=== PATIENT | male | born 1945 | race Caucasian/White ===

== ENCOUNTER 2024-11-11 14:02 | Emergency (ER) | payer OTHER, SELFPAY ==
--- NOTE | ~2024-11-11 | CT_ITS ---
CLINICAL HISTORY: floaters to L eye --- Additional Notes or Special Instructions: hx of left retinal occlusion CT angiography head and neck with contrast. 3D Postprocessing. Comparison: CT/SR - CT HEAD/BRAIN WO IV CON - 11/11/24 15:11 EDT Findings: Aortic arch and cervical great vessels are patent with no aneurysm, dissection, or occlusion. There is multifocal calcific plaque formation within major arteries. There is moderate calcific plaque formation at the origin of the right subclavian artery. Likely moderate associated stenosis. There is severe calcific plaque formation within the proximal right vertebral artery extending from its origin over 2.5 cm of its length. Probable occlusion of the origin of the right vertebral artery. Recanalization within the mid and distal aspects of the cervical portion of the right vertebral artery with relatively limited flow. There is calcification of the origin of the left vertebral artery with moderate to severe stenosis. The remainder of the left vertebral artery is unremarkable with appropriate flow. There is severe calcific plaque formation within the bilateral carotid bulbs. On the left, there is stenosis estimated at 20% by NASCET criteria. On the right, there is stenosis estimated at 50% by NASCET criteria. Intracranial arteries are patent. No aneurysm, dissection, hemodynamically significant stenoses, or occlusion. No abnormal intracranial enhancement. The visualized thyroid gland is unremarkable. No cervical mass or fluid collection. No consolidation or pleural effusion. No acute fracture. IMPRESSION: 1. Severe calcific plaque formation within the proximal right vertebral artery with occlusion at its origin. Recanalization with relatively limited flow within the mid and distal aspects of the cervical portion. 2. Probable stenosis of the origin of the left vertebral artery. 3. Stenosis of the origin of the right ICA estimated at 50% by NASCET criteria. Stenosis of the origin of the left ICA estimated at 20% by NASCET criteria. 4. 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 5. Patent CTA brain. This document has been electronically signed by: Izzy Tillman MD on 11/11/2024 18:51:49
--- NOTE | ~2024-11-11 | CT_ITS ---
CLINICAL HISTORY: L eye vision loss CT head without contrast Comparison: None Findings: No intra-axial mass, midline shift, hydrocephalus, or acute hemorrhage. Involutional change brain parenchyma, compatible with age. Small chronic appearing lacunar infarct within the right basal ganglia. Trace fluid within the right maxillary sinus. Mild mucosal thickening within the paranasal sinuses. The orbits are unremarkable. There is no acute fracture. IMPRESSION: 1. No acute intracranial findings. This document has been electronically signed by: Izzy Tillman MD on 11/11/2024 16:01:07
[2024-11-11 14:24] VITALS: BP 138/81; PULSE 90; RESP 16; TEMP 36.9; O2SAT 98; BMI 29.3
--- NOTE | 2024-11-11 14:25 | ED.EYEPROB ---
HPI - Eye Problem General Chief complaint: Eye Problems Stated complaint: problem with L eye Time Seen by Provider: 11/11/24 15:47 Source: patient Mode of arrival: ambulatory Limitations: no limitations History of Present Illness ED Provider: CHARISSE HART PA-C HPI Narrative: 78-year-old male with pmhx significant for atrial fibrillation on Eliquis and clopidogrel presents to the ED today with worsening vision in his left eye x1 week. Reports history of RVO 2 years ago with subsequent chronic upper visual field loss described as purple area . Over the last week he has developed floaters to inferior visual field only visible with certain eye movements. Denies any pain to left eye. Denies seeing a curtain drop. Denies contact use but does wear glasses. He is nearsighted. Denies headache, dizziness, blurred vision or double vision, chest pain, palpitations. Denies trauma/injury to left eye. denies fb sensation. Related Data Allergies Allergy/AdvReac Type Severity Reaction Status Date / Time No Known Allergies Allergy Verified 11/11/24 14:26 [No Known Allergies*] Review of Systems Review of Systems: Yes all other systems are reviewed and are negative [facility] Past Medical History Attestation statement: The following information was validated with the patient. Source: old records reviewed and nursing notes reviewed Social History Social History Smoked in Last 30 Days: No Use of substances other than those prescribed or required for medical reasons: No Advance Directives: No Advance Directives Information Provided: Yes Do you have a plan to hurt others: No Plan Physical Exam Vital Signs: Vital Signs: Last Vital Signs Temp 97.8 F 11/11/24 20:08 Pulse 73 11/11/24 20:08 Resp 16 11/11/24 20:08 BP 120/63 11/11/24 20:08 Pulse Ox 97 11/11/24 20:08 O2 Del Method Room Air 11/11/24 20:08 BMI result Body Mass Index 29.3 Stable vitals General: Well appearing, in no acute distress. Skin: Warm, dry, intact. No rashes or lesions. Head: Normocephalic, atraumatic. no palpable temporal aa or scalp tenderness. EENT: Hearing is intact b/l. Conjunctiva clear. No periorbital swelling. No enophthalmous or exopthalmous. EOMs intact without pain or entrapment. PERRLA. No photophobia. No obvious foreign body or abrasion. No conjunctival injection or chemosis. Visual acuity OS 20/40 OD 20/30. IOP OD 14, IOP OS 16. noted loss to peripheral vision of left eye. difficulty tracking my finger peripheral w/ left eye. Bedside US of left eye - no retinal detachment. No vitreous hemorrhage. Cardiac: Chest wall symmetric. Irregularly irregular Lungs: Normal respiratory effort without accessory muscle use. CTA bilaterally Ext: Upper and lower extremities atraumatic, without tenderness, deformity, swelling or erythema Neuro: AOx3. Normal speech. NIH 0. Normal finger to nose, heel to ramirez. Strength 5/5 intact throughout. Sensation intact to light touch. NV intact distally. Ambulating with steady gait. Psych: Appropriate mood and affect. Responds appropriately to questions. Course Course Course Narrative: This is an RME performed by Ofelia Frederick PRACTICE MANAGER: Additional HPI, ROS, PE not included below will be deferred to primary provider. Patient is a 78-year-old male who presents emergency department for evaluation. He reports approximately 2 years ago he was diagnosed with a blood clot in the left eye that was thought to be secondary to a stroke, is told that this would dissolve on its some. He has chronically had some slight vision changes with a purple obscuring discoloration to his upper field of vision. Over the past 3-4 days he has noticed that his symptoms are worsening and now feels as though the upper half of his field of vision on the left side is obscured. Denies any recent trauma or injury, headache, pressure to the eye, numbness or tingling to the face, facial drooping, confusion. NIH score 0. Plan: Serum labs, EKG, CT head Reevaluation(s) Reevaluation #1: CBC without leukocytosis or left shift. Normocytic anemia, H and H 12.2/36. No priors to compare to. Chemistry without acute electrolyte abnormality requiring intervention. BUN mildly elevated at 18 with normal creatinine. Liver function at baseline. inflammatory markers wnl. Troponin WNL at 9.6. Given onset of symptoms and timing to ED, no need to repeat for delta as ACS is unlikely. EKG showing atrial fibrillation rate control fit 80 beats per minute, QT 364, QTC 424. No acute ischemic changes or ST elevations. CT head/brain without intracranial bleed or mass. Incidental finding of trace fluid within the right maxillary sinus with mild mucosal thickening of the paranasal sinuses. He does not endorse any tenderness to percussion over right maxillary sinus. Unlikely sinusitis. 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 > discussed findings with vascular surgery (Dr. Jefferson). From vascular standpoint, patient can follow-up outpatient regarding moderate stenosis of right subclavian artery. No other vascular intervention warranted at this time. > discussed case with hospitalist (Dr. Win). suspects this is more peripheral in etiology. No acute onset. Recommending discussion with Ophthalmology. > discussed case with mri specialist (Dr. Fu). Suspects this is progression of chronic retinal vessel occlusion. no emergent intervention warranted at this time. He recommends patient follow-up in his office tomorrow morning. I feel this is reasonable. > discussed all workup results with patient. He was well-appearing. Exam continues to be nonfocal. No new concern since arriving in the ED. he states that he will contact Dr. Fu's office tomorrow morning. Referral provided. Patient has remained stable throughout ED visit today. Discussed worrisome signs and symptoms and when to return to the ED. All questions answered at this time. Patient is agreeable with disposition and stable for discharge. Medications Administered Discontinued Medications Generic Name Dose Route Start Last Admin Trade Name Freq PRN Reason Stop Dose Admin Iohexol 100 ml 11/11/24 17:40 11/11/24 17:41 Iohexol 350 Mg/Ml 100 Ml Infus..Btl IV 11/11/24 17:41 70 ml ONCE ONE Administration Medical Decision Making Medical Decision Making MDM Narrative: 78-year-old male with pmhx significant for atrial fibrillation on Eliquis and clopidogrel presents to the ED today with worsening vision in his left eye x1 week. vital signs stable. normotensive, afebrile. He was well-appearing and in no acute distress. On exam, no focal neuro deficits. No scalp tenderness or palpable temporal artery. No periorbital swelling. No enophthalmous or exopthalmous. EOMs intact without pain or entrapment. PERRLA. No photophobia. No obvious foreign body or abrasion. No conjunctival injection or chemosis. Visual acuity OS 20/40 OD 20/30. IOP OD 14, IOP OS 16. noted loss to peripheral vision of left eye. difficulty tracking my finger peripheral w/ left eye. Bedside ultrasound of left eye - no retinal detachment. No vitreous hemorrhage. Differential diagnosis includes CVA, TIA, brain mass, retinal detachment, temporal arteritis. Unlikely corneal abrasion, corneal foreign body, viral vs bacterial conjunctivitis, allergic conjunctivitis. Unlikely preseptal or orbital cellulitis, acute angle closure glaucoma, iritis, keratitis, scleritis, uveitis, herpes ophthalmicus. Presentation not consistent with acute intracranial bleed including SAH. Presentation not consistent with acute [employer] infection including meningitis or brain abscess. Temporal arteritis unlikely. Screening labs, ekg, CT head ordered from triage - plan to review. Plan for bedside ultrasound, CTA head/neck. Differential Diagnosis Differential Diagnoses: The differential diagnosis associated with the presentation includes as above. Admission/Observation discussed admission w/ hospitalist dr. win - suspects peripheral cause of visual disturbance. CVA unlikely. recommending reaching out to ophthalmology Consult Healthcare Provider Management of the patient was discussed with: Hospitalist (dr. win) [employer] Model - dr. fu vascular - dr. jefferson Lab Data MDM Lab Attestation statement: I reviewed the patient's lab results. as above. 11/11/24 15:10 11/11/24 15:10 Labs: Lab Results 11/11/24 Range/Units 15:10 WBC 7.2 (4.8-10.8) X10*3/uL RBC 3.82 L (4.60-5.80) X10*6/uL Hgb 12.2 L (14.0-18.0) g/dl Hct 36.0 L (42.0-52.0) % MCV 94.2 (80.0-98.0) fL MCH 31.9 (27.0-33.0) pg MCHC 33.9 (31.0-36.0) g/dl RDW 13.4 (11.0-16.0) % Plt Count 201 (160-400) X10*3/uL MPV 9.8 (9.4-12.4) fL Immature Gran % (Auto) 0.3 (0.0-0.4) % Neut % (Auto) 59.6 (45-73) % Lymph % (Auto) 24.4 (20-40) % [place] % (Auto) 8.7 (2-11) % Eos % (Auto) 6.4 H (0-4) % Baso % (Auto) 0.6 (0-2) % Lymph # (Auto) 1.8 (1.2-4.9) X10*3/uL [place] # (Auto) 0.6 (0.1-1.2) X10*3/uL Eos # (Auto) 0.5 H (0.0-0.4) X10*3/uL Baso # (Auto) 0.0 (0.0-0.2) X10*3/uL Abs Immat Gran (auto) 0.02 (0.00-0.03) X10*3/uL Absolute Neuts (auto) 4.3 (2.0-8.3) x10*3/uL Absolute Nucleated RBC 0.000 (0.0-0.012) X10*3/uL Nucleated RBC % (auto) 0.0 (0.0-0.2) /100WBC ESR 9 (0-15) MM/HR PT 15.4 H (10.9-12.4) SEC INR 1.3 H (0.9-1.1) Sodium 142 (135-145) mmol/L Potassium 4.1 (3.3-5.1) mmol/L Chloride 110 H (96-108) mmol/L Carbon Dioxide 23 (22-29) mmol/L Anion Gap 13 (12-20) BUN 18 H (9-16) mg/dL Creatinine 1.09 (0.5-1.4) mg/dL Estim Creat Clear Calc 64.8 Estimated GFR > 60 Random Glucose 105 (60-115) mg/dL Calcium 8.8 (8.4-10.2) mg/dL Total Bilirubin 0.5 (0.0-1.0) mg/dL AST 25 (5-37) U/L ALT 28 (0-40) U/L Alkaline Phosphatase 77 (39-117) U/L Troponin I High Sens 9.6 (<3.5-35.0) ng/L C-Reactive Protein 0.10 (< or = 0.50) mg/dL Total Protein 6.7 (6.5-8.0) g/dL Albumin 3.8 (3.5-5.0) g/dL Independent Interpretation I performed an independent interpretation of an: EKG and CT Scan Interpretation: ct head/brain without bleed/ mass ekg showing afib rate controlled at 80 bpm Radiology Impression Discussion of test interpretation with radiology: I have reviewed the radiologist's reading. Radiologist Impression: Procedure(s): CT angio head neck Accession Number(s): [id number] cc: Aaron Solis MD; Charisse Hart~ Report Number: [id number]: Total DLP = 782.00 mGy-cm ADDENDUMThis document has been electronically signed by: Izzy Tillman MD on 11/11/2024 18:51:49 ADDENDUM: This report was discussed with Charisse Hart MD on Nov 11, 2024 19:06:00 EDT. This document has been electronically signed by: Woody Collier on 11/11/2024 19:06:33 Addendum Dictated By: Izzy Tillman MD Addendum Signed By: <Electronically signed by Izzy Tillman MD in [place]> 11/11/241907 Addendum Cosigned By: DD/ TD/TT: 11/11/24 CLINICAL HISTORY: floaters to L eye --- Additional Notes or Special Instructions: hx of left retinal occlusion CT angiography head and neck with contrast. 3D Postprocessing. Comparison: CT/SR - CT HEAD/BRAIN WO IV CON - 11/11/24 15:11 EDT Findings: Aortic arch and cervical great vessels are patent with no aneurysm, dissection, or occlusion. There is multifocal calcific plaque formation within major arteries. There is moderate calcific plaque formation at the origin of the right subclavian artery. Likely moderate associated stenosis. There is severe calcific plaque formation within the proximal right vertebral artery extending from its origin over 2.5 cm of its length. Probable occlusion of the origin of the right vertebral artery. Recanalization within the mid and distal aspects of the cervical portion of the right vertebral artery with relatively limited flow. There is calcification of the origin of the left vertebral artery with moderate to severe stenosis. The remainder of the left vertebral artery is unremarkable with appropriate flow. There is severe calcific plaque formation within the bilateral carotid bulbs. On the left, there is stenosis estimated at 20% by NASCET criteria. On the right, there is stenosis estimated at 50% by NASCET criteria. Intracranial arteries are patent. No aneurysm, dissection, hemodynamically significant stenoses, or occlusion. No abnormal intracranial enhancement. The visualized thyroid gland is unremarkable. No cervical mass or fluid collection. No consolidation or pleural effusion. No acute fracture. IMPRESSION: 1. Severe calcific plaque formation within the proximal right vertebral artery with occlusion at its origin. Recanalization with relatively limited flow within the mid and distal aspects of the cervical portion. 2. Probable stenosis of the origin of the left vertebral artery. 3. Stenosis of the origin of the right ICA estimated at 50% by NASCET criteria. Stenosis of the origin of the left ICA estimated at 20% by NASCET criteria. 4. 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 5. Patent CTA brain. This document has been electronically signed by: Izzy Tillman MD on 11/11/2024 18:51:49 Procedure(s): CT head/brain wo IV con Accession Number(s): [id number] cc: Kathleen Frederick CNP; Aaron Solis MD~ Report Number: [id number]: Total DLP = 765.00 mGy-cm CLINICAL HISTORY: L eye vision loss CT head without contrast Comparison: None Findings: No intra-axial mass, midline shift, hydrocephalus, or acute hemorrhage. Involutional change brain parenchyma, compatible with age. Small chronic appearing lacunar infarct within the right basal ganglia. Trace fluid within the right maxillary sinus. Mild mucosal thickening within the paranasal sinuses. The orbits are unremarkable. There is no acute fracture. IMPRESSION: 1. No acute intracranial findings. External Record Review External record reviewed: Inpatient record Chronic Conditions Patient?s care impacted by: Other (afib) Social Determinants Patient?s care significantly limited by Social Determinants of Health including: Other Social Determinant of Health Critical Care Time Critical Care Time Critical Care Time: No Discharge Plan Discharge Clinical Impression: Floaters in visual field Patient Disposition: Home, Self-Care Instructions: Visual Floaters (ED) Additional Instructions: Your blood work today is reassuring. The CT scan of your head shows patent vessels. There is no bleed or mass. The CT scan of your neck shows: 1. Severe calcific plaque formation within the proximal right vertebral artery with occlusion at its origin. Recanalization with relatively limited flow within the mid and distal aspects of the cervical portion. 2. Probable stenosis of the origin of the left vertebral artery. 3. Stenosis of the origin of the right ICA estimated at 50% by NASCET criteria. Stenosis of the origin of the left ICA estimated at 20% by NASCET criteria. 4. 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 You need to follow up with vascular surgery outpatient regarding these findings. You have been provided with a referral. Call them to establish care, they will not call you. Continue your home medications as prescribed. Regarding your visual floaters, you need to follow up with mri specialist Dr. Fu tomorrow for further evaluation. You have been provided with his number. Call his office tomorrow morning. He is expecting your call. Return with any new or worsening symptoms. In the case of an emergency call 911. 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
--- NOTE | 2024-11-11 14:41 | ECG_ITS ---
Test Reason : check for arrhythmia Blood Pressure : */* mmHG Vent. Rate : 80 BPM Atrial Rate : * BPM P-R Int : * ms QRS Dur : 78 ms QT Int : 368 ms P-R-T Axes : * 67 70 degrees QTcB Int : 424 ms Atrial fibrillation Abnormal ECG When compared with ECG of 05-Dec-2017 10:59, Atrial fibrillation has replaced Sinus rhythm ST no longer elevated in Lateral leads Referred By: Kathleen Frederick Electronically Signed By: ANALY PINK
--- OUTSIDE RECORDS SUMMARY | 2024-11-11 14:57 | XMS_ITS | Encounter Summary ---
Author Name [facility] [place] [facility] [place] Address [address] [place] [address] Care Team Providers Care Copy Director Name Role Phone AARON AWLDEN Primary Care Provider Unavailabl e Insurance Providers: [...] PART B Apr 24, 2013 PART B [phone] [id number] KLE[place] DYE RY PATIENT MEDICARE (WNR) MEDICARE () PART B Apr 24, 2013 PART B [id number] [facility] [phone] [id number] KLE[place]YE R[place] PATIENT MEDICARE (WNR) MEDICARE () PART B Apr 24, 2013 PART B [id number] KLE[place] R[place] PATIENT MEDICARE (WNR) MEDICARE () PART A November 23, 2011 PART A [id number] [place] R[place] PATIENT MEDICARE (WNR) MEDICARE () PART A November 23, 2011 PART A [id number] KLE[place] DYE RY PATIENT MEDICARE (WNR) MEDICARE () PART A November 23, 2011 PART A [id number] KLEBER DYE PATIENT [employer] [place] [employer] PLAN G PLAN G Apr 24, 2013 PLAN G [phone] [id number] KLEBER DYE PATIENT [employer] [place] [employer] PLAN G PLANG Apr 24, 2013 PLANG [id number] KLEBER DYE PATIENT [employer] [place] [employer] PLAN G Apr 24, 2013 PLANG [id number] KLEBER DYE PATIENT Selected Encounter This section includes the information on record at [place] for the Encounter. Date/Time Encounter Type Encounter Description Reason Provider Source Mar 13, 2024 10:30 AM PRINCESS MDLTY 1+ULTRASOUND EA 15 OCCUPATIONAL THERAPY ICD-10-CM M77.11 Lateral epicondylitis , right elbow MACHON,PAM E IHE Encounter Template Text not used by VA Assessments - Encounter Diagnoses This section includes the primary and secondary diagnoses documented for the Encounter. Date/Time Primary/Secondary Diagnosis Diagnosis Name Provider Source Apr 03, 2024 06:52 AM PRIMARY Lateral epicondylitis, right elbow MACHON,PAM E [place] [facility] [place] [facility] Plan of Treatment: Future Appointments (+ 6 months) and Future Tests (+/- 45 days) The Plan of Treatment section includes future care activities for the patient from all [place] treatmentfacilities. This section includes future appointments and future orders which are active, pending or scheduled. Future Appointments This section includes appointments that were scheduled to occur 6 months from the date of the Encounter, up to a maximum of 20 appointments. The data comes from all [place] treatment facilities. Appointment Date/Time Appointment Type Appointme nt Facility Name Mar 14, 2024 02:30 PM AMBULATORY - [facility]AB MEDICIN E [facility] [place] [facility] Mar 16, 2024 10:30 AM AMBULATORY - MEDICINE IN [facility] [place] [facility] Mar 20, 2024 09:30 AM AMBULATORY - MEDICINE IN [facility] [place] [facility] Mar 23, 2024 10:30 AM AMBULATORY - MEDICINE IN [facility] [place] [facility] Mar 29, 2024 11:30 AM AMBULATORY - MEDICINE IN [facility] [place] [facility] Mar 30, 2024 09:00 AM AMBULATORY - MEDICINE [facility] [place] [facility] Apr 03, 2024 11:30 AM AMBULATORY - MEDICINE [facility] [place] [facility] Apr 03, 2024 12:15 PM AMBULATORY - MEDICINE [facility] [place] [facility] Apr 04, 2024 03:00 PM AMBULATORY - MEDICINE [facility] [place] [facility] Apr 06, 2024 10:30 AM AMBULATORY - REHAB MEDICIN E [facility] [place] [facility] Apr 11, 2024 09:30 AM AMBULATORY - MEDICINE [facility] [place] [facility] Apr 16, 2024 03:00 PM AMBULATORY - REHAB MEDICIN E [facility] [place] [facility] Apr 23, 2024 10:00 AM AMBULATORY - MEDICINE [facility] [place] [facility] Apr 24, 2024 10:00 AM AMBULATORY - REHAB MEDICIN E [facility] [place] [facility] Apr 27, 2024 10:15 AM AMBULATORY - MEDICINE [facility] [place] [facility] May 01, 2024 10:00 AM AMBULATORY - REHAB MEDICIN E [facility] [place] [facility] May 16, 2024 10:00 AM AMBULATORY - REHAB MEDICIN E [facility] [place] [facility] May 16, 2024 11:00 AM AMBULATORY - REHAB MEDICIN E [facility] [place] [facility] May 21, 2024 03:00 PM AMBULATORY - REHAB MEDICIN E [facility] [place] [facility] May 29, 2024 10:30 AM AMBULATORY - REHAB MEDICIN E [facility] [place] [facility] Social History: Smoking Status (Most current) and Tobacco Use (All prior to encounter date) This section includes the most current, and the historical, smoking and tobacco- related health factors from the VA facility where the Encounter took place. Current Smoking Status This section includes the most current smoking, or tobacco-related health factor, from the VA facility where the Encounter took place. Date/Time Current Smoking Status Ricardo bryson Apr 13, 2023 11:00 AM VA-TOBACCO FORMER USER [facility] [place] [facility] Tobacco Use History This section includes a history of the smoking, or tobacco-related health factors, that were collected on or before the date of the Encounter. The data comes from the [place] facility where the Encounter took place. Date/Time Smoking Status/Tobac co Use Comment Facility Apr 13, 2023 11:00 AM VA-TOBACCO QUIT 5 TO < 15 YRS IN [facility] [place] [facility] Apr 14, 2022 01:30 PM VA-TOBACCO FORMER USER [facility] [place] [facility] Apr 14, 2022 01:30 PM VA-TOBACCO QUIT 5 TO < 15 YRS [facility] [place] [facility] Apr 10, 2021 10:00 AM VA-TOBACCO FORMER USER [place] [facility] [place] [facility] Apr 10, 2021 10:00 AM VA-TOBACCO QUIT 5 TO < 15 YRS IN [facility] [place] [facility] Apr 02, 2020 10:30 AM VA-TOBACCO FORMER USER IN [facility] [place] [facility] Apr 02, 2020 10:30 AM VA-TOBACCO QUIT 5 TO < 15 YRS [place] [facility] [place] [facility] Sep 29, 2018 08:52 AM VA-TOBACCO FORMER USER IN [facility] [place] [facility] Sep 29, 2018 08:52 AM VA-TOBACCO QUIT 15 YRS OR MORE [place] [facility] [place] [facility] December 21, 2017 12:27 PM QUIT TOBACCO USE 1-7 YEARS AGO 5 or 6 years ago [place] [facility] [place] [facility] May 19, 2017 10:21 AM QUIT TOBACCO USE 1-7 YEARS AGO [facility] [place] [facility] Aug 19, 2016 09:56 AM QUIT TOBACCO USE 1-7 YEARS AGO [facility] [place] [facility] Feb 12, 2016 11:34 AM QUIT TOBACCO USE 1-7 YEARS AGO [facility] [place] [facility] Aug 08, 2015 03:04 PM QUIT TOBACCO USE 1-7 YEARS AGO [facility] [place] [facility] Aug 08, 2015 03:04 PM QUIT TOBACCO USE IN PAST YEAR pt states he stooped smmoking in the past yr. [place] [facility] [place] [facility] Advance Directives: All historical and current Section Date Range: From patient's date of to the date document was created. This section includes ALL of a patient's completed or amended [place] Advance and Rescinded Directives. The entries below indicate that a directive exists for the patient, but an actual copy is not included with this document. The data comes from all [place] facilities. Date Advance Directives Provider Source Jun 20, 2012 ADVANCE DIRECTIVE DISCUSSION MONIKA IZAGUIRRE [facility] Radiology Reports: +/- 30 days of the [...] treatment facilities. Date/Time Radiology Report Provider Source Mar 09, 2024 09:52 AM SPINE CERVICAL, 4 OR 5 VIEWS: DYESANCHO [id number] M Ex Date: MAR 09, 2024@09:52 Req Phys: BRYANNA MOORE Loc: CWM/NO/SICK CALL PA (Req'g Loc Img Loc: [facility] 1 Service: Unknown IN [facility] [place] [address] (Case [id number] COMPLETE) SPINE CERVICAL, 4 OR 5 VIEWS (RAD Detailed) CPT:87865 Reason for Study: pain with radiating features to the left shoulder Clinical History: Report Status: Verified Date Reported: MAR 09, 2024 Date Verified: MAR 09, 2024 Fur Tanner E-Sig:/ES/MIRTA NAVAS JR Report: Study: AP, lateral and left and right oblique views of the cervical spine. Comparison: Cervical spine radiographs from May 16, 2018. Findings: There is intervertebral disc space narrowing, [...] in the cervical spine, as described above. Primary Diagnostic Code: No immediate attention required Primary Interpreting Staff: MIRTA NAVAS JR, Radiologist (Fur Tanner) /MIRTA CASIANO JR [facility] Encounter Notes: All associated encounter notes This section contains the clinical notes associated to the Encounter. Date/Time Encounter Note(s) Provider Source Mar 13, 2024 10:58 AM OCCUPATIONAL THERAPY DISCHARGE NOTE: LOCAL TITLE: OCCUPATIONAL THERAPY DISCHARGE NOTE STANDARD TITLE: OCCUPATIONAL THERAPY DISCHARGE NOTE DATE OF NOTE: MAR 13, 2024@10:58 ENTRY DATE: MAR 13, 2024@10:58:25 AUTHOR: PAM JEFFERSON COSIGNER: AARON WALDEN URGENCY: STATUS: COMPLETED Initial Evaluation date: Feb Progress Note Date: Treatment #: 2 Treatment time: 28 minutes Diagnosis: Lateral Epicondylitis, right Elbow(ICD-10-CM M77.11) Provider: Irma OT Treatment Precautions: anticoag Patient identified by full name and date of SUBJECTIVE: Pt reports his L shoulder is quite painful still. Pt reports that elbow is not a problem. He wears the counterforce brace while driving. Pain Level: 0/10 OBJECTIVE: THERAPEUTIC EXERCISE: MINUTES: MANUAL THERAPY: mobilization/FDM over common extensor tendon/mobile wad MINUTES: 16 THERAPEUTIC DYNAMIC ACTIVITIES: MINUTES: NEUROMUSCULAR EDUCATION: MINUTES: OTHER: MINUTES: MODALITIES: *US 1.4 w/cm2 100% 3 MHz, sound head over common extensor tendon/mobile wad MINUTES: 8 [] Contraindication screen completed prior to modality [] Skin intact pre/post SELF CARE/EDUCATION: MINUTES: Patient education was provided for all aspects of care during this clinical encounter. ASSESSMENT: pt tolerated tx well this date. some tightness and ttp noted throughout extensor musculature, though pt does not experience much pain at all functionally. he is wearing the counterforce brace while driving and during exacerbating activities. at this time he feels very good about his elbow and would like to return for his L shoulder pain. PLAN: d/c from direct OT services w/ counterforce brace wear and stretches. will request OT referral for L shoulder pain from PCP. pt is in agreement w/ this POC. LTG's: 1. pain <1-2/10 at all times-MET 2. pt will report 50% improvement since initiating tx-MET STG's: 1. compliant w/ HEP and counterforce brace wear-MET 2. trial modalities (US, ionto) for pain/symptom management-MET 3. patient will report decreased pain in R elbow to <5/10 at worst-MET The practitioner's co-signature on this note signifies agreement with plan of care and clinical diagnosis code. /glenis/ Pam Jefferson MS OTR/Malini, CHT Occupational Therapist Signed: 03/13/2024 11:02 /glenis/ Aaron Walden MD Staff Physician Cosigned: 03/13/2024 11:12 PAM JEFFERSON [facility]
--- OUTSIDE RECORDS SUMMARY | 2024-11-11 14:57 | XMS_ITS | Encounter Summary ---
Author Name [facility] [place] [facility] [place] [facility] [place] Address [address] [place] [address] Care Team Providers Care Scallop Shucker Name Role Phone AARON WALDEN Primary Care [...] PART B Apr 24, 2013 PART B [id number] [place] PATIENT MEDICARE (WNR) MEDICARE () PART B Apr 24, 2013 PART B [id number] [facility]8 KLE[place] DYE RY PATIENT MEDICARE (WNR) MEDICARE (M) PART B Apr 24, 2013 PART B [id number] [id number] K[place] DYE R[place] PATIENT MEDICARE (WNR) MEDICARE () PART A November 23, 2011 PART A [id number] [place] R[place] PATIENT MEDICARE (WNR) MEDICARE () PART A November 23, 2011 PART A [id number] K[place] DYE RY PATIENT MEDICARE (WNR) MEDICARE () PART A November 23, 2011 PART A [id number] KLEBER DYE PATIENT [employer] [place] [employer] PLAN G PLAN G Apr 24, 2013 PLAN G [phone] [id number] KLEBER DYE PATIENT [employer] [place] [employer] PLAN G PLANG Apr 24, 2013 PLANG [id number] KLEBER DYE PATIENT [employer] [place] [employer] PLAN G Apr 24, 2013 PLANG [id number] KLEBER DYE PATIENT Selected Encounter This section includes the information on record at [place] for the Encounter. Date/Time Encounter Type Encounter Description Reason Pro vider Source Sep 29, 2024 03:40 AM Outpatient Encounter ADMIN PAT ACTIVTIES (MASNONCT) IHE Encounter Template Text not used by [place] Plan of Treatment: Future Appointments (+ 6 months) and Future Tests (+/- 45 days) The Plan of Treatment section includes future care activities for the patient from all [place] treatmentfacilities. This section includes future appointments and [...] 04, 2024 03:00 PM AMBULATORY - MEDICINE [facility] [place] [facility] Oct 16, 2024 10:00 AM AMBULATORY MEDICINE [facility] [place] [facility] December 12, 2024 11:30 AM AMBULATORY MEDICINE [facility] [place] [facility] Dec 25, 2024 01:00 PM AMBULATORY MEDICINE [facility] [place] [facility] Jan 01, 2025 09:00 AM [facility] Lab Results: +/- 30 days of the encounter This section includes the Chemistry and Hematology Lab Results on record with [place] for the patient. Radiology Reports and Pathology Reports are provided separately, in subsequent sections. Lab Results This section contains the Chemistry/Hematology Results that were resulted 30 days before or 30 daysafter the date of the Encounter. Date/Time Source Result Type Result - Unit Interpretation Reference Range Specimen Type Comment Oct 16, 2024 10:36 AM [facility] URINALYSIS CLEAN CATCH URINE Specimen Type: URINE Comment: If Glucose = >500 and Ketones are positive, please alert the Physician. Ordering Provider: AARON WALDEN Report Released Date/Time: Oct 16, 2024 10:21 AM Reporting Lab: [facility] [address] [facility] [address] Performing Lab: [facility] [address] [facility] [address] UA COLOR Yellow Yellow UA APPEARANCE Clear Clear UA GLUCOSE Normal mg/dL Negative UA KETONES NEGATIVE mg/dL Negative UA BLOOD NEGATIVE mg/dL Negative UA PROTEIN NEGATIVE mg/dL Negative UA NITRITE NEGATIVE mg/dL Negative UA BILIRUBIN NEGATIVE mg/dL Negative UA SPECIFIC GRAVITY 1.019 1.016-1.022 UA pH 6.0 5.0-9.0 UA UROBILINOGEN Normal mg/dL <2.0 UA LEUKOCYTE NEGATIVE Negative Oct 04, 2024 12:21 PM [facility] LIVER FUNCTION SERUM Specimen Type: SERUM No comment entered. Ordering Provider: AARON WALDEN Report Released Date/Time: Oct 04, 2024 12:06 PM Reporting Lab: [facility] [address] [facility] [address] Performing Lab: [facility] [address] [facility] [address] PROTEIN,TOTAL 6.4 g/dL 6.0-8.3 ALBUMIN 3.5 g/dL 3.5-5.0 ALKALINE PHOSPHATASE 66 U/L 40-150 AST 13 U/L 5-34 ALT 15 U/L BILIRUBIN, TOTAL 0.7 mg/dL 0.2-1.2 Oct 04, 2024 12:21 PM [facility] TSH SERUM Specimen Type: SERUM No comment entered. Ordering Provider: AARON WALDEN Report Released Date/Time: Oct 04, 2024 12:06 PM Reporting Lab: [facility] [address] [facility] [address] Performing Lab: [facility] [address] [facility] [address] TSH 2.11 u[IU]/mL 0.35-5.00 Oct 04, 2024 12:21 PM [facility] BASIC METABOLIC PANEL (fasting) SERUM Specime n Type: SERUM No comment entered. Ordering Provider: AARON WALDEN Report Released Date/Time: Oct 04, 2024 12:06 PM Reporting Lab: [facility] [address] [facility] [address] Performing Lab: [facility] [address] [facility] [address] UREA NITROGEN 17 mg/dL 7-25 GLUCOSE 101 mg/dL H 65-100 SODIUM 139 mmol/L 135-145 POTASSIUM 4.5 mmol/L 3.5-5.0 CHLORIDE 108 mmol/L 100-110 CO2 23 meq/L 20-30 CALCIUM 8.8 mg/dL 8.5-10.2 CREATININE, Serum 1.11 mg/dL 0.50-1.40 eGFR(CKD-EPI 2020) 68 mL/min >60 Oct 04, 2024 12:21 PM [facility] LIPID PANEL FASTING SERUM Specimen Type: SERU M No comment entered. Ordering Provider: AARON WALDEN Report Released Date/Time: Oct 04, 2024 12:06 PM Reporting Lab: [facility] [address] [facility] [address] Performing Lab: [address] [address] CHOLESTEROL 88 mg/dL TRIGLYCERIDE 84 mg/dL 0-150 LDL calculated 41 mg/dL 0-129 CHOL/HDL 2.9 HDL CHOLESTEROL 30 mg/dL L 40-60 Oct 04, 2024 12:21 PM [facility] URIC ACID SERUM Specimen Type: SERUM No comment entered. Ordering Provider: AARON WALDEN Report Released Date/Time: Oct 04, 2024 12:06 PM Reporting Lab: [facility] [address] [facility] [address] Performing Lab: [address] [address] URIC ACID 3.1 mg/dL L 3.5-7.2 Oct 04, 2024 12:21 PM [facility] MICROSCOPIC AUTOMATED, URINE URINE Specimen T ype: URINE Comment: If Glucose = >500 and Ketones are positive, please alert the Physician. Ordering Provider: AARON WALDEN Report Released Date/Time: Oct 04, 2024 12:06 PM Reporting Lab: [facility] [address] [facility] [address] Performing Lab: [facility] [address] [facility] [address] UA WBC 0-5 /[HPF] 0-5 UA MUCUS FEW /[LPF] Trace UA HYALINE CASTS 5-9 /[LPF] H 0-2 UA RBC 6-10 /[HPF] H 0-3 Oct 04, 2024 12:21 PM [facility] CBC AND DIFF (AUTO) BLOOD Specimen Type: BLOO D No comment entered. Ordering Provider: AARON WALDEN Report Released Date/Time: Oct 04, 2024 12:06 PM Reporting Lab: [facility] [address] [facility] [address] Performing Lab: [facility] [address] [facility] [address] WBC 6.37 10*3/uL 4.50-11.00 RBC 3.82 10*6/uL [...] 10*3/uL 0.00-0.00 Oct 04, 2024 12:21 PM [facility] URINALYSIS CLEAN CATCH URINE Specimen Type: U RINE Comment: If Glucose = >500 and Ketones are positive, please alert the Physician. Ordering Provider: AARON WALDEN Report Released Date/Time: Oct 04, 2024 12:06 PM Reporting Lab: [address] [address] Performing Lab: [address] [address] UA COLOR Yellow Yellow UA APPEARANCE Clear [...] 23, 2024 10:00 AM VA-TOBACCO FORMER USER [facility] Tobacco Use History This section includes a history of the smoking, or tobacco-related health factors, that were collected on or before the date of the Encounter. The data comes from the [place] facility where the Encounter took place. Date/Time Smoking Status/Tobac co Use Comment Facility Apr 23, 2024 10:00 AM VA-TOBACCO QUIT 5 TO < 15 YRS [facility] [place] [facility] Apr 13, 2023 11:00 AM VA-TOBACCO FORMER USER [facility] [place] [facility] Apr 13, 2023 11:00 AM VA-TOBACCO QUIT 5 TO < 15 YRS [facility] [place] [facility] Apr 14, 2022 01:30 PM VA-TOBACCO FORMER USER [facility] [place] [facility] Apr 14, 2022 01:30 PM VA-TOBACCO QUIT 5 TO < 15 YRS [facility] [place] [facility] Apr 10, 2021 10:00 AM VA-TOBACCO FORMER USER [facility] [place] [facility] Apr 10, 2021 10:00 AM VA-TOBACCO QUIT 5 TO < 15 YRS [facility] [place] [facility] Apr 02, 2020 10:30 AM VA-TOBACCO FORMER USER [facility] [place] [facility] Apr 02, 2020 10:30 AM VA-TOBACCO QUIT 5 TO < 15 YRS [facility] [place] [facility] Sep 29, 2018 08:52 AM VA-TOBACCO FORMER USER [facility] [place] [facility] Sep 29, 2018 08:52 AM VA-TOBACCO QUIT 15 YRS OR MORE [facility] [place] [facility] December 21, 2017 12:27 PM QUIT TOBACCO USE 1-7 YEARS AGO 5 or 6 years ago [facility] [place] [facility] May 19, 2017 10:21 AM QUIT TOBACCO USE 1-7 YEARS AGO [facility] [place] [facility] Aug 19, 2016 09:56 AM QUIT TOBACCO USE 1-7 YEARS AGO [facility] [place] [facility] Feb 12, 2016 11:34 AM QUIT TOBACCO USE 1-7 YEARS AGO [facility] [place] [facility] Aug 08, 2015 03:04 PM QUIT TOBACCO USE 1-7 YEARS AGO [facility] [place] [facility] Aug 08, 2015 03:04 PM QUIT TOBACCO USE IN PAST YEAR pt states he stooped smmoking in the past yr. [facility] [place] [facility] Advance Directives: All historical and current Section [...] 20, 2012 ADVANCE DIRECTIVE DISCUSSION MONIKA IZAGUIRRE [facility] Pathology Reports: +/- 30 days of the [...] comes from all [place] treatment facilities. Date/Time Pathology Report Provider Source Oct 16, 2024 10:36 AM LR MICROBIOLOGY RE PORT: Reporting Lab: [facility] [CLIA# [id number]] [address] [place] [id number] Accession [UID]: [id number] [[id number]] Received: Oct 16, 2024@10:36 Collection sample: URINE CLEAN CATCH Collection date: Oct 16, 2024 10:36 Site/Specimen: URINE Provider: AARON WALDEN Test(s) ordered: URINE CULTURE(MWROX).......... completed: Oct 19, 2024 09:18 * BACTERIOLOGY FINAL REPORT => Oct 19, 2024 09:18 TECH CODE: [id number] Bacteriology Remark(s): Culture in progress NO GROWTH IN 24 HOURS, FINAL REPORT TO FOLLOW. FINAL AEROBIC REPORT: NO GROWTH =--=--=--=--=--=--=--=--= --=--=--=--=--=--=--=--=- -=--=--=--=--=--=--=--=-- =-- Performing Laboratory: Bacteriology Report Performed By: [facility] [CLIA# [id number]] [address] [place] [address] [facility] Encounter Notes: All associated encounter notes [...] MEDICATION RENEWAL Has ADDENDA Date: Sep Division: [facility] referred by Pharmacy Call Center for medication renewal: Non-controlled/maintenanc e medication Medications requested: [id number] CILOSTAZOL 50MG TAB [id number] CLOPIDOGREL BISULFATE 75MG TAB Defer to primary care provider To be mailed . Please review and renew if appropriate. *This note was generated by [facility]/PR Pharmacy Customer Care. If you have any questions or need assistance, do not contact this author. Please refer all questions to your local, on-site pharmacy departments. /tyra HERNÁNDEZ CPhT [employer], [employer]/Pharmacy Customer Care Signed: 09/29/2024 03:40 Receipt Acknowledged By: 10/03/2024 08:19 /glenis/ Merly Matthews RN, BSN Primary Care 09/29/2024 10:53 /glenis/ Aaron Walden MD Staff Physician 09/29/2024 ADDENDUM STATUS: COMPLETED Done. /glenis/ Aaron Walden MD Staff Physician Signed: 09/29/2024 10:53 CARO HERNÁNDEZ [facility]
--- OUTSIDE RECORDS SUMMARY | 2024-11-11 14:57 | XMS_ITS | Continuity of Care Document ---
Author Name [facility] Organization [facility] Care Team Providers Care Boss Dyer Name Role Phone [facility] Unavailable Unavailable Problems Combined list of problems from Department of Defense and Veterans Affairs facilities. It does not include entries that were removed or entered in error. Problem Status Onset Date Problem Type Date of Resolution Comments Source Microscopic haematuria Active 07/25/19 25 Condition Oct 16, 2024 Entered By: PB WALDEN Comment: ordered urine tests [facility] Shoulder pain Active 07/25/19 24 Condition Sep 21, 2023 Entered By: PB WALDEN Comment: left [facility] Cerebral infarction Active 07/25/19 23 Condition Jun 24, 2023 Entered By: PB WALDEN Comment: Left eye blurry [facility] Benign Prostatic Hypertrophy without Outflow Obstruction (SCT [id number]) Active 07/25/19 22 Condition Oct 06, 2021 Entered By: PB WALDEN Comment: treated with Flomax [facility] Chronic dermatitis Active 07/25/19 21 Condition Oct 07, 2020 Entered By: PB WALDEN Comment: on neckDec 2022 Entered By: PB WALDEN Comment: Also behind left ear [facility] Impaired fasting glucose Active 07/25/19 21 Condition Apr 10, 2021 Entered By: PB WALDEN Comment: treated with education [facility] AF- Atrial Fibrillation (SCT [id number]) Active 07/25/19 18 Condition [facility] Coronary artery disease Active 07/25/19 16 Condition [facility] Erectile dysfunction Active 07/25/19 16 Condition [facility] Essential hypertension Active 07/25/19 16 Condition [facility] Gastro-esophageal reflux disease Active 07/25/19 16 Condition [facility] Gout Active 07/25/19 16 Condition [facility] History of colonic polyp Active 07/25/19 16 Condition [facility] Hypercholesterolemia Active 07/25/19 16 Condition [facility] Alcohol Abuse-Unspec Active Condition [facility] Arthralgia * (ICD-9-CM 719.40) Active Condition [facility] Benign Hypertrophy Prostate/Bph Active Condition [facility] Coronary arteriosclerosis Active Condition [facility] Depressive disorder, NOS Active Condition [facility] Erectile Dysfunction * (ICD-9-CM 302.72) Active Condition [facility] Exposure to potentially hazardous substance Active Condition Oct 13, 2022 Entered By: PB WALDEN Comment: education provided [facility] Gastroesophageal Reflux Disorder * (ICD-9-CM 530.81) Active Condition [facility] Hemorrhoids * (ICD-9-CM 455.6) Active Condition [facility] History of polyp of colon (SNOMED CT [id number]) Active Condition [facility] Hydrocele * (ICD-9-CM 603.9) Active Condition [facility] Hydrocele Nos Active Condition [facility] Hyperlipidemia Active Condition [facility] Hypertension * (ICD-9-CM 401.9) Active Condition [facility] Kidney Stones (ICD-9-CM 592.0) Active Condition [facility] Lateral Epicondylitis (Tennis Elbow) (ICD-9-CM 726.32) Active Condition [facility] Lateral epicondylitis * (ICD-9-CM 726.32) Active Condition [facility] Nicotine Addict Active Condition [facility] OVERWEIGHT (ICD-9-CM 278.02) Active Condition [facility] Penile Lesion (ICD-9-CM 709.9) Active Condition [facility] Peripheral Vascular Disease * (ICD-9-CM 443.9) Active Condition [facility] Diagnosis: ICD-10-CM I10 Essential (primary) hypertension Active Diagnosis [facility] Diagnosis: ICD-10-CM I73.9 Peripheral vascular disease, unspecified Active Diagnosis [facility] Diagnosis: ICD-10-CM M25.512 Pain in left shoulder Active Diagnosis [facility] Diagnosis: ICD-10-CM M54.2 Cervicalgia Active Diagnosis [facility] Diagnosis: ICD-10-CM Z12.2 Encntr screen for malignant neoplasm of respiratory organs Active Diagnosis [facility] Diagnosis: ICD-10-CM Z46.1 Encounter for fitting and adjustment of hearing aid Active Diagnosis [facility] Diagnosis: ICD-10-CM I25.10 Athscl heart disease of [place] coronary artery w/o ang pctrs Active Diagnosis [facility] Diagnosis: ICD-10-CM 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, left eye Active Diagnosis [facility] Diagnosis: ICD-10-CM L71.8 Other rosacea Active Diagnosis [facility] Diagnosis: ICD-10-CM M77.11 Lateral epicondylitis, right elbow Active Diagnosis [facility] Diagnosis: ICD-10-CM M25.519 Pain in unspecified shoulder Active Diagnosis [facility] Diagnosis: ICD-10-CM Z46.0 Encounter for fit/adjst of spectacles and contact lenses Active Diagnosis [facility] Diagnosis: ICD-10-CM E78.00 Pure hypercholesterolemia, unspecified Active Diagnosis [facility] Diagnosis: ICD-10-CM R73.01 Impaired fasting glucose Active Diagnosis [facility] Diagnosis: ICD-10-CM D18.01 Hemangioma of skin and subcutaneous tissue Active Diagnosis [facility] Diagnosis: ICD-10-CM Z13.89 Encounter for screening for other disorder Active Diagnosis [facility] Diagnosis: ICD-10-CM I63.9 Cerebral infarction, unspecified Active Diagnosis [facility] Diagnosis: ICD-10-CM 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 Medication Details Route Status Patient Instructions Prescription Expires Prescription Number Last Dispense Date Ordering Provider Order Date Order Qty Source ACETAMINOPH EN 325MG TAB TAKE TWO TABLETS BY MOUTH FOUR TIMES DAILY NEEDED ORAL 09/21/2024 [id number] FRANCK WALDEN D 2023 [facility] ALLOPURINOL 300MG TAB TAKE ONE TABLET BY MOUTH EVERY DAY FOR GOUT ORAL ACTIVE 07/07/2025 [id number] 5 FRANCK WALDEN D 2024 90 [facility] ALLOPURINOL 300MG TAB TAKE ONE TABLET BY MOUTH EVERY DAY FOR GOUT ORAL DISCONT INUED 10/09/2024 [id number] 4 FRANCK WALDEN D 2023 90 [facility] AMMONIUM LACTATE 12% LOTION APPLY SMALL AMOUNT TOPICALL Y ONCE DAILY FOR DRY IRRITATE D SKIN TOPICA L ACTIVE 06/08/2025 [id number] MALCOM BYERS D 2023 [facility] APIXABAN 5MG TAB TAKE ONE TABLET BY MOUTH TWICE DAILY ORAL ACTIVE 07/25/2025 [id number] 5 FRANCK WALDEN D 2024 [facility] APIXABAN 5MG TAB TAKE ONE TABLET BY MOUTH TWICE DAILY ORAL DISCONT INUED 07/31/2024 [id number] FRANCK WALDEN D 2023 180 [facility] ASPIRIN 81MG TAB,CHEWABL E CHEW ONE TABLET BY MOUTH DAILY ORAL ACTIVE KENNY IZAGUIRRE KEMAR H 2010 [facility] ATORVASTATI N CA 40MG TAB TAKE ONE TABLET BY MOUTH AT BEDTIME FOR CHOLESTE ROL ORAL ACTIVE 07/07/2025 [id number] 5 FRANCK WALDEND D 2023 90 [facility] ATORVASTATI N CA 40MG TAB TAKE ONE TABLET BY MOUTH AT BEDTIME FOR CHOLESTE ROL ORAL DISCONT INUED 07/22/2024 [id number] 4 FRANCK WALDEN D 2023 90 [facility] CALCIUM CARBONATE 650MG TAB TAKE TWO TABLETS BY MOUTH qid ORAL ACTIVE Miriam MARTINS 2005 [facility] CILOSTAZOL 50MG TAB TAKE ONE TABLET BY MOUTH TWICE DAILY -TAKE 30 MINUTES BEFORE MEALS OR TWO HOURS AFTER MEALS ORAL ACTIVE 09/30/2025 [id number] 5 FRANCK WALDEN D 2024 180 [facility] CILOSTAZOL 50MG TAB TAKE ONE TABLET BY MOUTH TWICE DAILY -TAKE 30 MINUTES BEFORE MEALS OR TWO HOURS AFTER MEALS ORAL DISCONT INUED 10/09/2024 [id number] 4 FRANCK WALDEND D 2023 180 [facility] CLOPIDOGREL BISULFATE 75MG TAB TAKE ONE TABLET BY MOUTH EVERY DAY ORAL ACTIVE 09/30/2025 [id number] 5 FRANCK WALDEN D 2024 90 [facility] CLOPIDOGREL BISULFATE 75MG TAB TAKE ONE TABLET BY MOUTH EVERY DAY ORAL DISCONT INUED 10/09/2024 [id number] FRANCK WALDEN D 2023 90 [facility] CYCLOBENZAP RINE HCL 10MG TAB TAKE ONE TABLET BY MOUTH THREE TIMES DAILY NEEDED ORAL 09/21/2024 [id number] FRANCK WALDEN RUTHANN D 2023 90 [facility] DICLOFENAC NA 1% GEL,TOP APPLY 2 GRAMS TOPICALL Y FOUR TIMES A DAY FOR JOINT PAIN FOR OSTEOART HRITIS - USE DOSING CARD PROVIDED IN BOX TOPICA Malini 04/05/2024 [id number] CAREY MOORE OTTO MARSH 2023 100 [facility] FISH OIL 1000MG (500MG DHA/EPA) CAP,ORAL TAKE 1 CAPSULE BY MOUTH EVERY DAY ORAL ACTIVE KENNY IZAGUIRRE LD H 2008 [facility] FLUTICASONE PROPIONATE 50MCG/SPRAY SOLN,NASAL, 16GM INSTILL 1 SPRAY INTO EACH NOSTRIL TWICE DAILY NEEDED FOR NASAL IRRITATI ON/INFLA MMATION NASAL ACTIVE 07/13/2025 [id number] FRANCK WALDEN RUTHANN D 2023 1 [facility] [place]AN POTASSIUM 100MG TAB TAKE ONE TABLET BY MOUTH ONCE DAILY FOR BLOOD PRESSURE /HEART ORAL ACTIVE 07/07/2025 [id number] 5 FRANCK WALDEN RUTHANN D 2024 90 [facility] [place] POTASSIUM 100MG TAB TAKE ONE TABLET BY MOUTH ONCE DAILY FOR BLOOD PRESSURE /HEART ORAL DISCONT INUED 10/09/2024 [id number] 4 FRANCK WALDEN RUTHANN D 2023 90 [facility] METOPROLOL SUCCINATE 100MG TAB,SA TAKE ONE TABLET BY MOUTH ONCE DAILY FOR BLOOD PRESSURE /HEART ORAL ACTIVE 12/20/2024 [id number] SAGRARIO QUIROS 2023 90 [facility] METOPROLOL SUCCINATE 100MG TAB,SA TAKE ONE TABLET BY MOUTH ONCE DAILY FOR BLOOD PRESSURE /HEART DISCON TINUE 25 MG TABLET UNLESS PROVIDER HAS TOLD YOU OTHERWIS E ORAL 11/26/2023 [id number] SUSAN QUIROSIN 2022 90 [facility] MULTIVITAMI NS W/MINERALS CAP/TAB TAKE 1 TABLET BY MOUTH EVERY DAY FOR VITAMIN SUPPLEME NTATION ORAL ACTIVE 07/07/2025 [id number] 5 FRANCK WALDEND D 2024 100 [facility] MULTIVITAMI NS W/MINERALS CAP/TAB TAKE 1 TABLET BY MOUTH EVERY DAY FOR VITAMIN SUPPLEME NTATION ORAL DISCONT INUED 08/18/2024 [id number] 4 FRANCK WALDEN D 2023 100 [facility] PANTOPRAZOL E NA 20MG TAB,EC TAKE ONE TABLET BY MOUTH EVERY DAY ORAL ACTIVE 07/07/2025 [id number] 5 FRANCK WALDEN D 2024 90 [facility] PANTOPRAZOL E NA 20MG TAB,EC TAKE ONE TABLET BY MOUTH EVERY DAY ORAL DISCONT INUED 08/08/2024 [id number] 4 FRANCK WALDEN 2023 90 [facility] TAMSULOSIN HCL 0.4MG CAP TAKE ONE CAPSULE BY MOUTH AT BEDTIME FOR ENLARGED PROSTATE ORAL ACTIVE 07/25/2025 [id number] 5 FRANCK WALDEN D 2023 90 [facility] TAMSULOSIN HCL 0.4MG CAP TAKE ONE CAPSULE BY MOUTH AT BEDTIME FOR ENLARGED PROSTATE ORAL DISCONT INUED 08/08/2024 [id number] FRANCK WALDEN D 2023 90 [facility] Immunizations Combined list of available immunizations from the Department of Defense and Veterans Affairs facilities. Immunization Series Date Given Administered By Site Reaction Lot Number CVX Code Drug Channel Supervisor Status Comments Source COVID-19 (MODERNA), MRNA, LNP-S, PF, 50 MCG/0.5 ML (AGES 12+ YEARS) 2023 RADHAMES SMITH H RIGHT DELTO ID [id number] 312 complet ed [facility] INFLUENZA, HIGH-DOSE, TRIVALENT, PF 2023 RADHAMES SMITH SSA H RIGHT DELTO ID [id number] 135 complet ed [facility] AT [facility] COVID-19 (MODERNA), MRNA, LNP-S, PF, 50 MCG/0.5 ML (AGES 12+ YEARS) 5 2023 ALBERT SMITH RIGHT DELTO ID [id number] 312 complet ed [facility] RSV, BIVALENT, PROTEIN SUBUNIT RSVPREF, DILUENT RECONSTITUTED , 0.5 ML, PF 2022 KISHAN CORREA LEFT DELTO ID [id number] 305 complet ed Completed Series, [facility] INFLUENZA, HIGH-DOSE, QUADRIVALENT 2022 KISHAN CORREA LEFT DELTO ID [id number] 197 complet ed Completed Series, [facility] COVID-19 (MODERNA), MRNA, LNP-S, BIVALENT BOOSTER, PF, 50 MCG/0.5 ML OR 25MCG/0.25 ML DOSE 2021 229 complet ed Booster for Series, HISTORICA L INFORMATI ON - SOURCE UNSPECIFI ED, Lot#: [id number] [facility] INFLUENZA VACCINE, QUADRIVALENT, ADJUVANTED 2021 205 complet ed [facility] COVID-19 (MODERNA), MRNA, LNP-S, PF, 100 MCG/0.5ML DOSE OR 50 MCG/0.25ML DOSE 3 2021 207 complet ed MOD; [id number]; 2 [facility] COVID-19 (MODERNA), MRNA, LNP-S, PF, 100 MCG OR 50 MCG DOSE 3 2020 207 complet ed MOD; [id number]; 2 [facility] INFLUENZA VACCINE, QUADRIVALENT, ADJUVANTED 2020 205 complet ed [facility] COVID-19 (PFIZER), MRNA, LNP-S, PF, 30 MCG/0.3 ML DOSE 2 2020 208 complet ed PFR; [id number]; 1 [facility] COVID-19 (PFIZER), MRNA, LNP-S, PF, 30 MCG/0.3 ML DOSE 1 2020 208 complet ed PFR; [id number]; 1 [facility] INFLUENZA, INJECTABLE, QUADRIVALENT, PRESERVATIVE FREE 2019 150 complet ed [facility] INFLUENZA, INJECTABLE, QUADRIVALENT, PRESERVATIVE FREE 2018 150 complet ed Site: Left Deltoid [facility] ZOSTER RECOMBINANT 2 2018 187 complet ed [facility] INFLUENZA, SEASONAL, INJECTABLE 2017 141 complet ed [facility] ZOSTER RECOMBINANT 1 2017 187 complet ed [facility] INFLUENZA, SEASONAL, INJECTABLE 2016 141 complet ed Site: Left Deltoid [facility] FLU,3 YRS (HISTORICAL) 2015 88 complet ed Site: Left Deltoid [facility] ZOSTER (SHINGLES) (HISTORICAL) 2015 121 complet ed Proximal Right Arm [facility] DTAP 2015 20 complet ed Site: Left Deltoid [facility] DTAP, UNSPECIFIED FORMULATION 2015 107 complet ed [facility] FLU,3 YRS (HISTORICAL) 2014 88 complet ed [facility] PNEUMOCOCCAL CONJUGATE PCV 13 2014 133 complet ed [facility] PNEUMOCOCCAL CONJUGATE PCV 13 2014 133 complet ed yes [facility] INFLUENZA, UNSPECIFIED FORMULATION 2013 88 complet ed [facility] INFLUENZA, UNSPECIFIED FORMULATION 2012 88 complet ed [facility] PNEUMOCOCCAL, UNSPECIFIED FORMULATION 2012 NONE 109 complet ed [facility] PNEUMOCOCCAL POLYSACCHARID E [id number] 2012 33 complet ed yes [facility] INFLUENZA, UNSPECIFIED FORMULATION 2011 88 complet ed [facility] INFLUENZA, UNSPECIFIED FORMULATION 2010 88 complet ed [facility] TD(ADULT) UNSPECIFIED FORMULATION 2010 NONE 139 complet ed given L deltoid; expiratio n 07/29/12; lot # [id number] [facility] INFLUENZA, UNSPECIFIED FORMULATION 2008 88 complet ed [facility] INFLUENZA, UNSPECIFIED FORMULATION 2007 88 complet ed [facility] INFLUENZA, UNSPECIFIED FORMULATION 2006 88 complet ed [facility] INFLUENZA, UNSPECIFIED FORMULATION 2005 88 complet ed [facility] INFLUENZA, UNSPECIFIED FORMULATION 2004 88 complet ed [facility] INFLUENZA, UNSPECIFIED FORMULATION 2004 88 complet ed [facility] PNEUMOCOCCAL, UNSPECIFIED FORMULATION 2003 109 complet ed [facility] INFLUENZA, UNSPECIFIED FORMULATION 2002 88 complet ed [facility] INFLUENZA, WHOLE 2001 EVANGELINA FUNK 16 complet ed [facility] INFLUENZA, WHOLE 2000 16 complet ed [facility] TD(ADULT) UNSPECIFIED FORMULATION 2000 EMMY JIANG IN DOT 139 complet [facility] Results Combined list of recent chemistry, hematology and other laboratory results from Department of Defense and Veterans Affairs, ranging from 15 months to all on record, depending upon the facility. Order Name Results Value Reference Range Date Interpretation Specimen Comments Source URINALYS IS CLEAN CATCH COLOR OF URINE Yellow 10/16 Specimen Type: URINE Comment: If Glucose = >500 and Ketones are positive, please alert the Physician. Ordering Provider: PB WALDEN Report Released Date/Time: Oct 16, 2024 10:21 AM Reporting Lab: [facility] [address] [address] Performing Lab: [facility] [place] [facility] [address] [address] [facility] URINALYS IS CLEAN CATCH APPEARANCE OF URINE Clear 10/16 Specimen Type: URINE Comment: If Glucose = >500 and Ketones are positive, please alert the Physician. Ordering Provider: PB WALDEN Report Released Date/Time: Oct 16, 2024 10:21 AM Reporting Lab: [facility] [place] [facility] [address] [address] Performing Lab: [facility] [place] [facility] [address] [address] [facility] URINALYS IS CLEAN CATCH GLUCOSE [MASS/VOLU ME] IN URINE Normalmg /dL 10/16 Specimen Type: URINE Comment: If Glucose = >500 and Ketones are positive, please alert the Physician. Ordering Provider: PB WALDEN Report Released Date/Time: Oct 16, 2024 10:21 AM Reporting Lab: [facility] [place] [facility] [address] [address] Performing Lab: [facility] [place] [facility] [address] [address] [facility] URINALYS IS CLEAN CATCH KETONES [MASS/VOLU ME] IN URINE BY TEST STRIP NEGATIVE mg/dL 10/16 Specimen Type: URINE Comment: If Glucose = >500 and Ketones are positive, please alert the Physician. Ordering Provider: PB WALDEN Report Released Date/Time: Oct 16, 2024 10:21 AM Reporting Lab: [facility] [place] [facility] [address] [address] Performing Lab: [facility] [place] [facility] [address] [address] [facility] URINALYS IS CLEAN CATCH ERYTHROCYT ES [PRESENCE] IN URINE SEDIMENT BY LIGHT MICROSCOPY NEGATIVE mg/dL 10/16 Specimen Type: URINE Comment: If Glucose = >500 and Ketones are positive, please alert the Physician. Ordering Provider: PB WALDEN Report Released Date/Time: Oct 16, 2024 10:21 AM Reporting Lab: [facility] [place] [facility] [address] [address] Performing Lab: [facility] [place] [facility] [address] [address] [facility] [place] [facility] URINALYS IS CLEAN CATCH PROTEIN [MASS/VOLU ME] IN URINE BY TEST STRIP NEGATIVE mg/dL 10/16 Specimen Type: URINE Comment: If Glucose = >500 and Ketones are positive, please alert the Physician. Ordering Provider: PB WALDEN Report Released Date/Time: Oct 16, 2024 10:21 AM Reporting Lab: [facility] [place] [facility] [address] [address] Performing Lab: [facility] [place] [facility] [address] [address] [facility] [place] [facility] URINALYS IS CLEAN CATCH NITRITE [PRESENCE] IN URINE NEGATIVE mg/dL 10/16 Specimen Type: URINE Comment: If Glucose = >500 and Ketones are positive, please alert the Physician. Ordering Provider: PB WALDEN Report Released Date/Time: Oct 16, 2024 10:21 AM Reporting Lab: [facility] [place] [address] [address] Performing Lab: [facility] [place] [address] [address] [facility] [place] [facility] URINALYS IS CLEAN CATCH BILIRUBIN. TOTAL [PRESENCE] IN URINE NEGATIVE mg/dL 10/16 Specimen Type: URINE Comment: If Glucose = >500 and Ketones are positive, please alert the Physician. Ordering Provider: PB WALDEN Report Released Date/Time: Oct 16, 2024 10:21 AM Reporting Lab: [facility] [place] [facility] [address] [address] Performing Lab: [facility] [place] [facility] [address] [address] [facility] URINALYS IS CLEAN CATCH SPECIFIC GRAVITY OF URINE BY REFRACTOME TRY 1.019 1.016 - 1.022 10/16 Specimen Type: URINE Comment: If Glucose = >500 and Ketones are positive, please alert the Physician. Ordering Provider: PB WALDEN Report Released Date/Time: Oct 16, 2024 10:21 AM Reporting Lab: [facility] [place] [facility] [address] [address] Performing Lab: [facility] [place] [facility] [address] [address] [facility] [facility] URINALYS IS CLEAN CATCH PH OF URINE BY TEST STRIP 6.0 5.0 - 9.0 10/16 Specimen Type: URINE Comment: If Glucose = >500 and Ketones are positive, please alert the Physician. Ordering Provider: PB WALDEN Report Released Date/Time: Oct 16, 2024 10:21 AM Reporting Lab: [facility] [place] [facility] [address] [address] Performing Lab: [facility] [place] [facility] [address] [address] [facility] [facility] URINALYS IS CLEAN CATCH UROBILINOG EN [MASS/VOLU ME] IN URINE BY TEST STRIP Normalmg /dL <2.0 - 2.0 10/16 Specimen Type: URINE Comment: If Glucose = >500 and Ketones are positive, please alert the Physician. Ordering Provider: PB WALDEN Report Released Date/Time: Oct 16, 2024 10:21 AM Reporting Lab: [facility] [place] [facility] [address] [address] Performing Lab: [facility] [place] [facility] [address] [address] [facility] URINALYS IS CLEAN CATCH LEUKOCYTE ESTERASE [PRESENCE] IN URINE BY TEST STRIP NEGATIVE 10/16 Specimen Type: URINE Comment: If Glucose = >500 and Ketones are positive, please alert the Physician. Ordering Provider: PB WALDEN Report Released Date/Time: Oct 16, 2024 10:21 AM Reporting Lab: [facility] [address] Performing Lab: [place] [facility] [address] [address] [facility] LIVER FUNCTION PROTEIN [MASS/VOLU ME] IN SERUM OR PLASMA 6.4 g/dL 6.0 - 8.3 10/04 Specimen Type: SERUM No comment entered. Ordering Provider: PB WALDEN Report Released Date/Time: Oct 04, 2024 12:06 PM Reporting Lab: [facility]ITALUS[facility] [address] [address] Performing Lab: [facility] [place] [address] [address] [facility]ITALRATRI[facility]ITALUSE [facility] LIVER FUNCTION ALBUMIN [MASS/VOLU ME] IN SERUM OR PLASMA 3.5 g/dL 3.5 - 5.0 10/04 Specimen Type: SERUM No comment entered. Ordering Provider: PB WALDEN Report Released Date/Time: Oct 04, 2024 12:06 PM Reporting Lab: [facility] [place] [place] [address] [address] Performing Lab: [facility] [facility]ITALUSETS [facility] [address] [address] [facility]ITALRATRI[facility]ERN [facility]ITALUSE [facility] LIVER FUNCTION ALKALINE PHOSPHATAS E [ENZYMATIC ACTIVITY/V OLUME] IN SERUM OR PLASMA 66 U/L 40 - 150 10/04 Specimen Type: SERUM No comment entered. Ordering Provider: PB WALDEN Report Released Date/Time: Oct 04, 2024 12:06 PM Reporting Lab: [facility]RL TRN [facility]PITALUSE[address] [address] Performing Lab: [facility] [place] [facility] [address] [address] [place] [facility] [place] [facility] LIVER FUNCTION ASPARTATE AMINOTRANS FERASE [ENZYMATIC ACTIVITY/V OLUME] IN SERUM OR PLASMA 13 U/L 5 - 34 10/04 Specimen Type: SERUM No comment entered. Ordering Provider: PB WALDEN Report Released Date/Time: Oct 04, 2024 12:06 PM Reporting Lab: [facility] [place] [facility] [address] [facility] [facility] [address] Performing Lab: [facility] [place] [facility] [address] [address] [facility] [place] [facility] LIVER FUNCTION ALANINE AMINOTRANS FERASE [ENZYMATIC ACTIVITY/V OLUME] IN SERUM OR PLASMA 15 U/L 10/04 Specimen Type: SERUM No comment entered. Ordering Provider: PB WALDEN Report Released Date/Time: Oct 04, 2024 12:06 PM Reporting Lab: [facility] [place] [facility] [address] [facility] [address] Performing Lab: [facility] [place] [facility] [address] [facility] [facility] [address] [place] [place] [facility] LIVER FUNCTION BILIRUBIN. TOTAL [MASS/VOLU ME] IN SERUM OR PLASMA 0.7 mg/dL 0.2 - 1.2 10/04 Specimen Type: SERUM No comment entered. Ordering Provider: PB WALDEN Report Released Date/Time: Oct 04, 2024 12:06 PM Reporting Lab: [facility] [place] [facility] [address] [facility] [facility] [address] Performing Lab: [facility] [place] [address] [address] [facility] [place] [facility] TSH THYROTROPI N [UNITS/VOL UME] IN SERUM OR PLASMA 2.11 u[IU]/mL 0.35 - 5.00 10/04 Specimen Type: SERUM No comment entered. Ordering Provider: PB WALDEN Report Released Date/Time: Oct 04, 2024 12:06 PM Reporting Lab: [facility] [place] [facility] [address] [facility] [facility] [address] Performing Lab: [place] [place] [facility] [address] [facility] [address] [place] [facility] [place] [facility] BASIC METABOLI C PANEL (fasting ) UREA NITROGEN [MASS/VOLU ME] IN SERUM OR PLASMA 17 mg/dL 7 - 25 10/04 Specimen Type: SERUM No comment entered. Ordering Provider: PB WALDEN Report Released Date/Time: Oct 04, 2024 12:06 PM Reporting Lab: [facility] [place] [facility] [address] [facility] [facility] [address] Performing Lab: [place] [facility] [place] [facility] [address] [facility] [facility] [address] [facility] WSTRN [place] [facility] BASIC METABOLI C PANEL (fasting ) GLUCOSE [MASS/VOLU ME] IN SERUM OR PLASMA 101 mg/dL 65 - 100 10/04 H Specimen Type: SERUM No comment entered. Ordering Provider: PB WALDEN Report Released Date/Time: Oct 04, 2024 12:06 PM Reporting Lab: [facility] [place] [facility] [address] [facility] [facility] [address] Performing Lab: [place] [facility] [place] [facility] [address] [address] [facility] [place] [facility] BASIC METABOLI C PANEL (fasting ) SODIUM [MOLES/VOL UME] IN SERUM OR PLASMA 139 mmol/L 135 - 145 10/04 Specimen Type: SERUM No comment entered. Ordering Provider: PB WALDEN Report Released Date/Time: Oct 04, 2024 12:06 PM Reporting Lab: [facility] [place] [facility] [address] [facility] [address] Performing Lab: [place] [facility] [place] [facility] [address] [facility] [address] [place] [place] [facility] BASIC METABOLI C PANEL (fasting ) POTASSIUM [MOLES/VOL UME] IN SERUM OR PLASMA 4.5 mmol/L 3.5 - 5.0 10/04 Specimen Type: SERUM No comment entered. Ordering Provider: PB WALDEN Report Released Date/Time: Oct 04, 2024 12:06 PM Reporting Lab: [facility] [place] [facility] [address] [facility] [facility] [address] Performing Lab: [facility] [place] [facility] [address] [facility] [facility] [address] [facility] [place] [facility] BASIC METABOLI C PANEL (fasting ) CHLORIDE [MOLES/VOL UME] IN SERUM OR PLASMA 108 mmol/L 100 - 110 10/04 Specimen Type: SERUM No comment entered. Ordering Provider: PB WALDEN Report Released Date/Time: Oct 04, 2024 12:06 PM Reporting Lab: [facility] [facility] [place] [facility] [address] [address] Performing Lab: [place] [facility] [place] [address] [address] [facility] [place] [facility] BASIC METABOLI C PANEL (fasting ) CARBON DIOXIDE, TOTAL [MOLES/VOL UME] IN SERUM OR PLASMA 23 meq/L 20 - 30 10/04 Specimen Type: SERUM No comment entered. Ordering Provider: PB WALDEN Report Released Date/Time: Oct 04, 2024 12:06 PM Reporting Lab: [facility] [place] [facility] [address] [address] Performing Lab: [place] [facility] [place] [address] [address] [place] [facility] [place] [facility] BASIC METABOLI C PANEL (fasting ) CALCIUM [MASS/VOLU ME] IN SERUM OR PLASMA 8.8 mg/dL 8.5 - 10.2 10/04 Specimen Type: SERUM No comment entered. Ordering Provider: PB WALDEN Report Released Date/Time: Oct 04, 2024 12:06 PM Reporting Lab: [facility] [place] [facility] [address] [facility] [facility] [address] Performing Lab: [facility] [place] [address] [address] [facility] [place] [facility] BASIC METABOLI C PANEL (fasting ) CREATININE [MASS/VOLU ME] IN SERUM OR PLASMA 1.11 mg/dL 0.50 - 1.40 10/04 Specimen Type: SERUM No comment entered. Ordering Provider: PB WALDEN Report Released Date/Time: Oct 04, 2024 12:06 PM Reporting Lab: [facility]ITALRL TRN [facility]ITALUSE[facility] [address] [address] Performing Lab: [place] [facility] [facility]ITALUSE[facility] [address] [address] [facility]PITALRL [facility] BASIC METABOLI C PANEL (fasting ) GLOMERULAR FILTRATION RATE/1.73 SQ M.PREDICTE D [VOLUME RATE/AREA] IN SERUM, PLASMA OR BLOOD BY CREATININE -BASED FORMULA (CKD-EPI 2020) 68 mL/min 60 10/04 Specimen Type: SERUM No comment entered. Ordering Provider: PB WALDEN Report Released Date/Time: Oct 04, 2024 12:06 PM Reporting Lab: [facility]ITALRL TRN [facility]ITALUSE[address] [address] Performing Lab: [facility]RL [facility]ITALUSE[address] [address] [facility]ITALRL [facility]N [facility] LIPID PANEL FASTING CHOLESTERO L [MASS/VOLU ME] IN SERUM OR PLASMA 88 mg/dL 10/04 Specimen Type: SERUM No comment entered. Ordering Provider: PB WALDEN Report Released Date/Time: Oct 04, 2024 12:06 PM Reporting Lab: [facility]RL [place] [address] [address] Performing Lab: [place] [facility] [facility]ITALUSETS [address] [address] [facility]PITALRATRI[facility] F[facility]ERN [facility] LIPID PANEL FASTING TRIGLYCERI DE [MASS/VOLU ME] IN SERUM OR PLASMA 84 mg/dL 0 - 150 10/04 Specimen Type: SERUM No comment entered. Ordering Provider: PB WALDEN Report Released Date/Time: Oct 04, 2024 12:06 PM Reporting Lab: [facility]RL [facility] [address] Performing Lab: [facility] [place] [facility] [address] [facility] [facility] [address] [place] [facility] [place] [facility] LIPID PANEL FASTING CHOLESTERO L IN LDL [MASS/VOLU ME] IN SERUM OR PLASMA BY CALCULATIO N 41 mg/dL 0 - 129 10/04 Specimen Type: SERUM No comment entered. Ordering Provider: PB WALDEN Report Released Date/Time: Oct 04, 2024 12:06 PM Reporting Lab: [facility] [place] [facility] [address] [facility] [facility] [address] Performing Lab: [facility] [place] [facility] [address] [facility] [facility] [address] [place] [place] [facility] LIPID PANEL FASTING CHOLESTERO L.TOTAL/CH OLESTEROL IN HDL [MASS RATIO] IN SERUM OR PLASMA 2.9 10/04 Specimen Type: SERUM No comment entered. Ordering Provider: PB WALDEN Report Released Date/Time: Oct 04, 2024 12:06 PM Reporting Lab: [facility] [place] [facility] [address] [facility] [facility] [address] Performing Lab: [facility] [place] [facility] [address] [facility] [facility] [address] [facility] [place] [facility] LIPID PANEL FASTING CHOLESTERO L IN HDL [MASS/VOLU ME] IN SERUM OR PLASMA 30 mg/dL 40 - 60 10/04 L Specimen Type: SERUM No comment entered. Ordering Provider: PB WALDEN Report Released Date/Time: Oct 04, 2024 12:06 PM Reporting Lab: [facility] [place] [facility] [address] [facility] [facility] [address] Performing Lab: [place] [facility] [place] [facility] [address] [facility] [facility] [address] [facility]ITALRL [facility]N [place] [facility] URIC ACID URATE [MASS/VOLU ME] IN SERUM OR PLASMA 3.1 mg/dL 3.5 - 7.2 10/04 L Specimen Type: SERUM No comment entered. Ordering Provider: PB WALDEN Report Released Date/Time: Oct 04, 2024 12:06 PM Reporting Lab: [facility] [place] [facility] [address] [facility] [facility] [address] Performing Lab: [facility] [place] [facility] [address] [facility] [facility] [address] [facility] [place] [facility] MICROSCO PIC AUTOMATE D, URINE LEUKOCYTES [#/AREA] IN URINE SEDIMENT BY MICROSCOPY HIGH POWER FIELD 0-5/[HPF ] 0 - 5 10/04 Specimen Type: URINE Comment: If Glucose = >500 and Ketones are positive, please alert the Physician. Ordering Provider: PB WALDEN Report Released Date/Time: Oct 04, 2024 12:06 PM Reporting Lab: [facility] [place] [facility] [address] [facility] [facility] [address] Performing Lab: [place] [facility] [place] [address] [address] [place] [facility] [place] [facility] [employer] PIC AUTOMATE D, URINE MUCUS [#/AREA] IN URINE SEDIMENT BY MICROSCOPY LOW POWER FIELD FEW/[LPF ] 10/04 Specimen Type: URINE Comment: If Glucose = >500 and Ketones are positive, please alert the Physician. Ordering Provider: PB WALDEN Report Released Date/Time: Oct 04, 2024 12:06 PM Reporting Lab: [facility] [place] [facility] [address] [facility] [facility] [address] Performing Lab: [place] [facility] [place] [facility] [address] [facility] [address] [place] [facility] [place] [facility] [employer] PIC AUTOMATE D, URINE HYALINE CASTS [#/AREA] IN URINE SEDIMENT BY MICROSCOPY LOW POWER FIELD 5-9/[LPF ] 0 - 2 10/04 H Specimen Type: URINE Comment: If Glucose = >500 and Ketones are positive, please alert the Physician. Ordering Provider: PB WALDEN Report Released Date/Time: Oct 04, 2024 12:06 PM Reporting Lab: [place] [facility] [place] [facility] [address] [facility] [facility] [address] Performing Lab: [place] [place] [address] [place] [address] [facility]N [facility]ITALUSE [facility] MI[employer]OS[employer] PIC AUTOMATE D, URINE ERYTHROCYT ES [#/AREA] IN URINE SEDIMENT BY MICROSCOPY HIGH POWER FIELD 6-10/[HP F] 0 - 3 10/04 H Specimen Type: URINE Comment: If Glucose = >500 and Ketones are positive, please alert the Physician. Ordering Provider: PB WALDEN Report Released Date/Time: Oct 04, 2024 12:06 PM Reporting Lab: [facility]N [facility]ITALUSE[facility] [address] [facility] [facility] [facility] [address] Performing Lab: [address] [address] [facility]USE [facility] CBC AND DIFF (AUTO) LEUKOCYTES [#/VOLUME] IN BLOOD BY AUTOMATED COUNT 6.37 10*3/uL 4.50 - 11.00 10/04 Specimen Type: BLOOD No comment entered. Ordering Provider: PB WALDEN Report Released Date/Time: Oct 04, 2024 12:06 PM Reporting Lab: [facility] [place] [address] [facility] [address] Performing Lab: [facility]ITALN [facility]ITALUSE[facility] [address] [address] [facility] CBC AND DIFF (AUTO) ERYTHROCYT ES [#/VOLUME] IN BLOOD BY AUTOMATED COUNT 3.82 10*6/uL 4.23 - 5.66 10/04 L Specimen Type: BLOOD No comment entered. Ordering Provider: PB WALDEN Report Released Date/Time: Oct 04, 2024 12:06 PM Reporting Lab: [address] [address] Performing Lab: [facility]ITALN [facility]OSPITALUSE[address] [address] [facility] CBC AND DIFF (AUTO) HEMOGLOBIN [MASS/VOLU ME] IN BLOOD 12.1 g/dL 12.8 - 17 10/04 L Specimen Type: BLOOD No comment entered. Ordering Provider: PB WALDEN Report Released Date/Time: Oct 04, 2024 12:06 PM Reporting Lab: [facility] [place] [facility] [address] [facility] [address] Performing Lab: [facility] [place] [facility] [address] [facility] [facility] [address] [facility] [place] [facility] CBC AND DIFF (AUTO) HEMATOCRIT [VOLUME FRACTION] OF BLOOD BY AUTOMATED COUNT 36.2 39.2 - 50.4 10/04 L Specimen Type: BLOOD No comment entered. Ordering Provider: PB WALDEN Report Released Date/Time: Oct 04, 2024 12:06 PM Reporting Lab: [facility] [place] [facility] [address] [facility] [address] Performing Lab: [facility] [place] [facility] [address] [facility] [facility] [address] [facility] [place] [facility] CBC AND DIFF (AUTO) MCV [ENTITIC VOLUME] BY AUTOMATED COUNT 94.8 fL 82 - 99 10/04 Specimen Type: BLOOD No comment entered. Ordering Provider: PB WALDEN Report Released Date/Time: Oct 04, 2024 12:06 PM Reporting Lab: [facility] [place] [facility] [address] [facility] [address] Performing Lab: [facility] [place] [facility] [address] [facility] [facility] [address] [facility] [place] [facility] CBC AND DIFF (AUTO) MCHC [MASS/VOLU ME] BY AUTOMATED COUNT 33.4 g/dL 30.8 - 35.1 10/04 Specimen Type: BLOOD No comment entered. Ordering Provider: PB WALDEN Report Released Date/Time: Oct 04, 2024 12:06 PM Reporting Lab: [facility] [place] [facility] [address] [facility] [facility] [address] Performing Lab: [facility] [place] [facility] [address] [facility] [address] [facility] [place] [facility] CBC AND DIFF (AUTO) PLATELETS [#/VOLUME] IN BLOOD BY AUTOMATED COUNT 219 10*3/uL 140 - 360 10/04 Specimen Type: BLOOD No comment entered. Ordering Provider: PB WALDEN Report Released Date/Time: Oct 04, 2024 12:06 PM Reporting Lab: [facility] [place] [facility] [address] [facility] [facility] [address] Performing Lab: [facility] [place] [facility] [address] [facility] [facility] [address] [facility] [place] [facility] CBC AND DIFF (AUTO) ERYTHROCYT E DISTRIBUTI ON WIDTH [RATIO] BY AUTOMATED COUNT 13.2 12.0 - 16.0 10/04 Specimen Type: BLOOD No comment entered. Ordering Provider: PB WALDEN Report Released Date/Time: Oct 04, 2024 12:06 PM Reporting Lab: [facility] [place] [facility] [address] [facility] [facility] [address] Performing Lab: [place] [facility] [place] [facility] [address] [facility] [facility] [address] [place] [place] [facility] CBC AND DIFF (AUTO) MONOCYTES [#/VOLUME] IN BLOOD BY AUTOMATED COUNT 0.48 10*3/uL 0.30 - 1.10 10/04 Specimen Type: BLOOD No comment entered. Ordering Provider: PB AWLDEN Report Released Date/Time: Oct 04, 2024 12:06 PM Reporting Lab: [facility] [place] [facility] [address] [facility] [facility] [address] Performing Lab: [facility] [place] [facility] [address] [facility] [facility] [address] [facility] [place] [facility] CBC AND DIFF (AUTO) MCH [ENTITIC MASS] BY AUTOMATED COUNT 31.7 pg 26.2 - 32.6 10/04 Specimen Type: BLOOD No comment entered. Ordering Provider: PB WALDEN Report Released Date/Time: Oct 04, 2024 12:06 PM Reporting Lab: [facility] [place] [facility] [address] [facility] [facility] [address] Performing Lab: [facility] [place] [facility] [address] [facility] [address] [facility] [place] [facility] CBC AND DIFF (AUTO) NEUTROPHIL S/100 LEUKOCYTES IN BLOOD BY AUTOMATED COUNT 61.8 43.7 - 75.8 10/04 Specimen Type: BLOOD No comment entered. Ordering Provider: PB WALDEN Report Released Date/Time: Oct 04, 2024 12:06 PM Reporting Lab: [facility] [place] [facility] [address] [facility] [facility] [address] Performing Lab: [facility] [place] [place] [facility] [address] [facility] [address] [facility] [place] [facility] CBC AND DIFF (AUTO) LYMPHOCYTE S/100 LEUKOCYTES IN BLOOD BY AUTOMATED COUNT 25.7 14.0 - 42.3 10/04 Specimen Type: BLOOD No comment entered. Ordering Provider: PB WALDEN Report Released Date/Time: Oct 04, 2024 12:06 PM Reporting Lab: [facility] [place] [address] [address] Performing Lab: [facility] [place] [facility] [address] [facility] [address] [facility] [place] [facility] CBC AND DIFF (AUTO) MONOCYTES/ 100 LEUKOCYTES IN BLOOD BY AUTOMATED COUNT 7.5 5.1 - 13.7 10/04 Specimen Type: BLOOD No comment entered. Ordering Provider: PB WALDEN Report Released Date/Time: Oct 04, 2024 12:06 PM Reporting Lab: [facility] [place] [address] [address] Performing Lab: [facility] [place] [facility] [address] [facility] [address] [facility] [place] [facility] CBC AND DIFF (AUTO) EOSINOPHIL S/100 LEUKOCYTES IN BLOOD BY AUTOMATED COUNT 4.2 0.4 - 6.8 10/04 Specimen Type: BLOOD No comment entered. Ordering Provider: PB WALDEN Report Released Date/Time: Oct 04, 2024 12:06 PM Reporting Lab: [facility] [place] [address] [address] Performing Lab: [facility] [place] [facility] [address] [facility] [address] [facility] [place] [facility] CBC AND DIFF (AUTO) BASOPHILS/ 100 LEUKOCYTES IN BLOOD BY AUTOMATED COUNT 0.6 0.1 - 2.0 10/04 Specimen Type: BLOOD No comment entered. Ordering Provider: PB WALDEN Report Released Date/Time: Oct 04, 2024 12:06 PM Reporting Lab: [facility] [place] [facility] [address] [facility] [address] Performing Lab: [facility] [place] [facility] [address] [facility] [address] [facility] [place] [facility] CBC AND DIFF (AUTO) NEUTROPHIL S [#/VOLUME] IN BLOOD BY AUTOMATED COUNT 3.93 10*3/uL 2.20 - 7.60 10/04 Specimen Type: BLOOD No comment entered. Ordering Provider: PB WALDEN Report Released Date/Time: Oct 04, 2024 12:06 PM Reporting Lab: [facility] [place] [facility] [address] [facility] [address] Performing Lab: [facility] [place] [facility] [address] [facility] [facility] [address] [place] [place] [facility] CBC AND DIFF (AUTO) LYMPHOCYTE S [#/VOLUME] IN BLOOD BY AUTOMATED COUNT 1.64 10*3/uL 1.00 - 3.20 10/04 Specimen Type: BLOOD No comment entered. Ordering Provider: PB WALDEN Report Released Date/Time: Oct 04, 2024 12:06 PM Reporting Lab: [facility] [place] [facility] [address] [facility] [address] Performing Lab: [facility] [place] [facility] [address] [facility] [facility] [address] [facility] [place] [facility] CBC AND DIFF (AUTO) EOSINOPHIL S [#/VOLUME] IN BLOOD BY AUTOMATED COUNT 0.27 10*3/uL 0.03 - 0.44 10/04 Specimen Type: BLOOD No comment entered. Ordering Provider: PB WALDEN Report Released Date/Time: Oct 04, 2024 12:06 PM Reporting Lab: [facility] [place] [facility] [address] [facility] [address] Performing Lab: [facility] [place] [facility] [address] [facility] [address] [facility] [place] [facility] CBC AND DIFF (AUTO) BASOPHILS [#/VOLUME] IN BLOOD BY AUTOMATED COUNT 0.04 10*3/uL 0.01 - 0.13 10/04 Specimen Type: BLOOD No comment entered. Ordering Provider: PB WALDEN Report Released Date/Time: Oct 04, 2024 12:06 PM Reporting Lab: [facility] [place] [facility] [address] [facility] [address] Performing Lab: [facility] [place] [address] [address] [facility] [facility] CBC AND DIFF (AUTO) IMMATURE GRANULOCYT ES/100 LEUKOCYTES IN BLOOD BY AUTOMATED COUNT 0.2 0.0 - 0.7 10/04 Specimen Type: BLOOD No comment entered. Ordering Provider: PB WALDEN Report Released Date/Time: Oct 04, 2024 12:06 PM Reporting Lab: [facility] [place] [address] [address] Performing Lab: [facility] [place] [facility] [address] [address] [facility] [place] [facility] CBC AND DIFF (AUTO) IMMATURE GRANULOCYT ES [#/VOLUME] IN BLOOD BY AUTOMATED COUNT 0.01 10*3/uL 0.00 - 0.06 10/04 Specimen Type: BLOOD No comment entered. Ordering Provider: PB WALDEN Report Released Date/Time: Oct 04, 2024 12:06 PM Reporting Lab: [facility] [place] [facility] [address] [address] Performing Lab: [facility] [place] [facility] [address] [address] [facility] [place] [facility] CBC AND DIFF (AUTO) NUCLEATED ERYTHROCYT ES/100 LEUKOCYTES [RATIO] IN BLOOD BY AUTOMATED COUNT 0.0 0.0 - 0.0 03/13 /2025 Specimen Type: BLOOD No comment entered. Ordering Provider: PB WALDEN Report Released Date/Time: Oct 04, 2024 12:06 PM Reporting Lab: [facility] [place] [facility] [address] [address] Performing Lab: [facility] [place] [facility] [address] [address] [facility] [place] [facility] CBC AND DIFF (AUTO) NUCLEATED ERYTHROCYT ES [#/VOLUME] IN BLOOD BY AUTOMATED COUNT 0.00 10*3/uL 0.00 - 0.00 10/04 Specimen Type: BLOOD No comment entered. Ordering Provider: PB WALDEN Report Released Date/Time: Oct 04, 2024 12:06 PM Reporting Lab: [facility] [place] [facility] [address] [address] Performing Lab: [facility] [place] [facility] [address] [address] [facility] [place] [facility] URINALYS IS CLEAN CATCH COLOR OF URINE Yellow 10/04 Specimen Type: URINE Comment: If Glucose = >500 and Ketones are positive, please alert the Physician. Ordering Provider: PB WALDEN Report Released Date/Time: Oct 04, 2024 12:06 PM Reporting Lab: [facility] [place] [facility] [address] [address] Performing Lab: [facility] [place] [facility] [address] [address] [facility] [place] [facility] URINALYS IS CLEAN CATCH APPEARANCE OF URINE Clear 10/04 Specimen Type: URINE Comment: If Glucose = >500 and Ketones are positive, please alert the Physician. Ordering Provider: PB WALDEN Report Released Date/Time: Oct 04, 2024 12:06 PM Reporting Lab: [facility] [address] [address] Performing Lab: [facility] [address] [address] [facility] URINALYS IS CLEAN CATCH GLUCOSE [MASS/VOLU ME] IN URINE Normalmg /dL 10/04 Specimen Type: URINE Comment: If Glucose = >500 and Ketones are positive, please alert the Physician. Ordering Provider: PB WALDEN Report Released Date/Time: Oct 04, 2024 12:06 PM Reporting Lab: [facility] [address] [address] Performing Lab: [facility] [place] [facility] [address] [address] [facility] [place] URINALYS IS CLEAN CATCH KETONES [MASS/VOLU ME] IN URINE BY TEST STRIP NEGATIVE mg/dL 10/04 Specimen Type: URINE Comment: If Glucose = >500 and Ketones are positive, please alert the Physician. Ordering Provider: PB WALDEN Report Released Date/Time: Oct 04, 2024 12:06 PM Reporting Lab: [facility] [address] [address] Performing Lab: [facility] [place] [facility] [address] [address] [facility] URINALYS IS CLEAN CATCH ERYTHROCYT ES [PRESENCE] IN URINE SEDIMENT BY LIGHT MICROSCOPY SMALLmg/ dL 10/04 Specimen Type: URINE Comment: If Glucose = >500 and Ketones are positive, please alert the Physician. Ordering Provider: PB WALDEN Report Released Date/Time: Oct 04, 2024 12:06 PM Reporting Lab: [facility] [place] [facility] [address] [address] Performing Lab: [facility] [place] [facility] [address] [address] [facility] [place] [facility] URINALYS IS CLEAN CATCH PROTEIN [MASS/VOLU ME] IN URINE BY TEST STRIP NEGATIVE mg/dL 10/04 Specimen Type: URINE Comment: If Glucose = >500 and Ketones are positive, please alert the Physician. Ordering Provider: PB WALDEN Report Released Date/Time: Oct 04, 2024 12:06 PM Reporting Lab: [facility] [address] [address] Performing Lab: [facility] [address] [address] [facility] URINALYS IS CLEAN CATCH NITRITE [PRESENCE] IN URINE NEGATIVE mg/dL 10/04 Specimen Type: URINE Comment: If Glucose = >500 and Ketones are positive, please alert the Physician. Ordering Provider: PB WALDEN Report Released Date/Time: Oct 04, 2024 12:06 PM Reporting Lab: [facility] [address] [address] Performing Lab: [facility] [address] [address] [facility] URINALYS IS CLEAN CATCH BILIRUBIN. TOTAL [PRESENCE] IN URINE NEGATIVE mg/dL 10/04 Specimen Type: URINE Comment: If Glucose = >500 and Ketones are positive, please alert the Physician. Ordering Provider: PB WALDEN Report Released Date/Time: Oct 04, 2024 12:06 PM Reporting Lab: [facility] [address] [address] Performing Lab: [facility] [address] [address] [facility] URINALYS IS CLEAN CATCH SPECIFIC GRAVITY OF URINE BY REFRACTOME TRY 1.017 1.016 - 1.022 10/04 Specimen Type: URINE Comment: If Glucose = >500 and Ketones are positive, please alert the Physician. Ordering Provider: PB WALDEN Report Released Date/Time: Oct 04, 2024 12:06 PM Reporting Lab: [facility] [address] [address] Performing Lab: [facility] [address] [address] [facility] URINALYS IS CLEAN CATCH PH OF URINE BY TEST STRIP 5.5 5.0 - 9.0 10/04 Specimen Type: URINE Comment: If Glucose = >500 and Ketones are positive, please alert the Physician. Ordering Provider: PB WALDEN Report Released Date/Time: Oct 04, 2024 12:06 PM Reporting Lab: [facility]ITALUS[facility] [address] [address] Performing Lab: [facility] [address] [address] [facility] URINALYS IS CLEAN CATCH UROBILINOG EN [MASS/VOLU ME] IN URINE BY TEST STRIP Normalmg /dL <2.0 - 2.0 10/04 Specimen Type: URINE Comment: If Glucose = >500 and Ketones are positive, please alert the Physician. Ordering Provider: PB WALDEN Report Released Date/Time: Oct 04, 2024 12:06 PM Reporting Lab: [facility] [address] [address] Performing Lab: [facility]ITALRATRI[facility]USE[address] [address] [facility]N [facility]ITALUSE [facility] URINALYS IS CLEAN CATCH LEUKOCYTE ESTERASE [PRESENCE] IN URINE BY TEST STRIP NEGATIVE 10/04 Specimen Type: URINE Comment: If Glucose = >500 and Ketones are positive, please alert the Physician. Ordering Provider: PB WALDEN Report Released Date/Time: Oct 04, 2024 12:06 PM Reporting Lab: [facility]ITALUSE[address] [address] Performing Lab: [facility]ITALRAT[facility]ERN [facility]ITALUSE[facility] [address] [address] [facility]USE [facility] BASIC METABOLI C PANEL (fasting ) UREA NITROGEN [MASS/VOLU ME] IN SERUM OR PLASMA 17 mg/dL 7 - 04/19 Specimen Type: SERUM No comment entered. Ordering Provider: PB WALDEN Report Released Date/Time: Apr 14, 2024 05:40 PM Reporting Lab: [facility]ITALUSE[address] [address] Performing Lab: [facility] [place] [facility] [address] [address] [facility]N [facility] BASIC METABOLI C PANEL (fasting ) GLUCOSE [MASS/VOLU ME] IN SERUM OR PLASMA 103 mg/dL 65 - 100 04/19 H Specimen Type: SERUM No comment entered. Ordering Provider: PB WALDEN Report Released Date/Time: Apr 14, 2024 05:40 PM Reporting Lab: [facility] [place] [facility] [address] [address] Performing Lab: [facility]ITAL[facility] W[facility]N [facility]ITALUSE[facility] [address] [address] [facility]ITALRMARSH[facility]THTRN [facility]OSPITALUSE [facility] BASIC METABOLI C PANEL (fasting ) SODIUM [MOLES/VOL UME] IN SERUM OR PLASMA 139 mmol/L 135 - 145 04/19 Specimen Type: SERUM No comment entered. Ordering Provider: PB WALDEN Report Released Date/Time: Apr 14, 2024 05:40 PM Reporting Lab: [facility]ITALRL TRN [place] [facility] [address] [address] Performing Lab: [facility]ITALRL [facility] [place] [facility] [address] [address] [facility]ITALRMARSH[facility]TRN [facility] BASIC METABOLI C PANEL (fasting ) POTASSIUM [MOLES/VOL UME] IN SERUM OR PLASMA 4.2 mmol/L 3.5 - 5.0 04/19 Specimen Type: SERUM No comment entered. Ordering Provider: PB WALDEN Report Released Date/Time: Apr 14, 2024 05:40 PM Reporting Lab: [facility] [place] [facility] [address] [address] Performing Lab: [facility]ITAL[facility] [place] [facility] [address] [address] [facility]ITALRMARSH[facility]THTRN [facility] BASIC METABOLI C PANEL (fasting ) CHLORIDE [MOLES/VOL UME] IN SERUM OR PLASMA 107 mmol/L 100 - 110 04/19 Specimen Type: SERUM No comment entered. Ordering Provider: PB WALDEN Report Released Date/Time: Apr 14, 2024 05:40 PM Reporting Lab: [facility] [place] [facility] [address] [address] Performing Lab: [facility] [place] [facility] [address] [address] [facility]ITALRL W[facility]N [place] [facility] BASIC METABOLI C PANEL (fasting ) CARBON DIOXIDE, TOTAL [MOLES/VOL UME] IN SERUM OR PLASMA 25 meq/L 20 - 30 04/19 Specimen Type: SERUM No comment entered. Ordering Provider: PB WALDEN Report Released Date/Time: Apr 14, 2024 05:40 PM Reporting Lab: [facility] [place] [facility] [address] [address] Performing Lab: [facility]ITAL[facility] [address] [address] [facility]PITALRL TRN [facility]OSPITALUSE [facility] BASIC METABOLI C PANEL (fasting ) CREATININE [MASS/VOLU ME] IN SERUM OR PLASMA 1.05 mg/dL 0.50 - 1.40 04/19 Specimen Type: SERUM No comment entered. Ordering Provider: PB WALDEN Report Released Date/Time: Apr 14, 2024 05:40 PM Reporting Lab: [facility] [place] [facility] [address] [address] Performing Lab: [facility]PITALUSETS [address] [address] [facility]ITALRL TRN [facility]PITALUSE [facility] BASIC METABOLI C PANEL (fasting ) GLOMERULAR FILTRATION RATE/1.73 SQ M.PREDICTE D [VOLUME RATE/AREA] IN SERUM, PLASMA OR BLOOD BY CREATININE -BASED FORMULA (CKD-EPI 2020) 73 mL/min 60 04/19 Specimen Type: SERUM No comment entered. Ordering Provider: PB WALDEN Report Released Date/Time: Apr 14, 2024 05:40 PM Reporting Lab: [facility] [place] [facility] [address] [address] Performing Lab: [facility]ITAL[facility] [address] [address] [facility]ITALRL W[facility]N [facility]ITALUSE [facility] Vital Signs Combined list of inpatient and outpatient Vital Signs from Department of Defense and Veterans Affairs, ranging from 12 months to all on record, depending upon the facility. Vital Sign Value Date Comments Source SYSTOLIC BLOOD PRESSURE 122 10/17/19 09:51:37 [facility] DIASTOLIC BLOOD PRESSURE 62 025 09:51:37 [facility] PULSE OXIMETRY 97 10/16/2024 09:51:37 [facility] WEIGHT 206.5 10/16/2024 09:51:37 [facility] BMI 29 kg/m2 10/16/2024 09:51:37 [facility] PAIN 0 10/16/2024 09:51:37 [facility] HEIGHT 70.5 10/16/2024 09:51:37 [facility] TEMPERATURE 98 10/16/2024 09:51:37 [facility] PULSE 95 10/16/2024 09:51:37 [facility] RESPIRATION 16 10/16/2024 09:51:37 [facility] SYSTOLIC BLOOD PRESSURE 148 04/23/20 24 10:12:33 [facility] DIASTOLIC BLOOD PRESSURE 71 024 10:12:33 [facility] PULSE OXIMETRY 96 04/23/2024 10:12:33 [facility] WEIGHT 206 04/23/2024 10:12:33 [facility] BMI 29 kg/m2 04/23/2024 10:12:33 [facility] PAIN 5 04/23/2024 10:12:33 [facility] HEIGHT 70.5 04/23/2024 10:12:33 [facility] TEMPERATURE 98.2 04/23/2024 10:12:33 [facility] PULSE 92 04/23/2024 10:12:33 [facility] RESPIRATION 16 04/23/2024 10:12:33 [facility] SYSTOLIC BLOOD PRESSURE 148 03/06/20 13:28:52 [facility] DIASTOLIC BLOOD PRESSURE 84 024 13:28:52 [facility] PULSE OXIMETRY 96 03/06/2024 13:28:52 [facility] PAIN 8 03/06/2024 13:28:52 [facility] TEMPERATURE 97.8 03/06/2024 13:28:52 [facility] PULSE 77 03/06/2024 13:28:52 [facility] RESPIRATION 20 03/06/2024 13:28:52 [facility] Encounters Combined list of: 1) Encounters from Department of Veterans Affairs facilities going backup to the last 18 months, not all VA inpatient encounters are included; 2) Encounters from the Department of Defense facilities going backup to 280 months. Location Location Details Encounter Type Encounter Number Reason For Visit Attending Provider ADM Date DC Date Status Disposition Source [facility] Encounter [id number] 05/19 [facility] OFF/OP EST MAY X REQ PHY/QHP [id number] Diagnos is: ICD-10- CM Z23 Encount er for immuniz JEAN Mcginnis RD D 05/25 [facility] OFFICE O/P EST LOW 20-29 MIN [id number] Diagnos is: ICD-10- CM R73.01 Impaire d fasting glucose Rnee OLVERA 06/01 [facility] Outpatient Encounter [id number] 06/02 [facility] Outpatient Encounter [id number] 06/15 [facility] NURSING ASSESSMENT /EVALUATN [id number] Diagnos is: ICD-10- CM H54.50 Low vision, one eye, unspeci fied eye Malini COLLINS 06/15 [facility] OFFICE O/P EST LOW 20-29 MIN [id number] Diagnos is: ICD-10- CM 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, left eye BORASKI,AN MARQUES E 06/15 [facility] CPTR OPHTH DX IMG POST SEGMT [id number] Diagnos is: ICD-10- CM 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, left eye BORASKI,AN MARQUES E 06/15 [facility] EYE EXAM WITH PHOTOS [id number] Diagnos is: ICD-10- CM 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, left eye LEEANNASKI,AN MARQUES E 06/15 [facility] Outpatient Encounter [id number] 06/15 [facility] Outpatient Encounter [id number] 06/15 [facility] Encounter [id number] 06/15 [facility] En[facility] [id number] 06/17 [facility] En[facility] [id number] 06/17 [facility] Encounter [id number] 06/20 [facility] Encounter [id number] 06/21 [facility] Encounter [id number] 06/21 [facility] Encounter [id number] 06/24 [facility] OFFICE O/P EST LOW 20-29 MIN [id number] Diagnos is: ICD-10- CM I63.9 Cerebra l infarct ion, unspeci fied JEAN WALDEN RD D 06/24 [facility] En[facility] [id number] 06/28 [facility] Encounter [id number] 06/30 [facility] En[facility] [id number] 06/30 [facility] Encounter [id number] 06/30 [facility] UNLISTED SPEC DERM SVC/PX [id number] Diagnos is: ICD-10- CM Z13.89 Encount er for screeni ng for other disorde r OVI STEWART ICA A 07/01 [facility] En[facility] [id number] 07/01 [facility] Outpatient Encounter [id number] Diagnos is: ICD-10- CM 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 HALEY DOWELL 07/01 [facility] Out[facility] Encounter [id number] 07/01 [facility] Encounter [id number] 07/01 [facility] VISUAL FIELD EXAMINATIO N(S) [id number] Diagnos is: ICD-10- CM 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, left eye KAYLEIGH REYES GAMALIEL 07/11 [facility] OCULAR INSTRUMNT SCREEN SADIE [id number] Diagnos is: ICD-10- CM 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, left eye KAYLEIGH REYES 07/11 [facility] FIT SPECTACLES MULTIFOCAL [id number] Diagnos is: ICD-10- CM Z46.0 Encount er for fit/adj st of spectac les and contact lenses KAYLEIGH REYES 07/11 [facility] En[facility] [id number] 07/21 [facility] Encounter [id number] 07/22 [facility] Encounter [id number] 07/22 [facility] Encounter [id number] 07/22 [facility] Encounter [id number] 07/30 [facility] OFF/OP EST NOVEMBER X REQ PHY/QHP [id number] Diagnos is: ICD-10- CM R73.01 Impaire d fasting glucose MARCO ANTONIO CORRALES VIOLA 08/02 [facility] En[facility] [id number] 08/03 [facility] Encounter [id number] 08/06 [facility] Encounter [id number] 08/16 [facility] Encounter [id number] 08/18 [facility] Encounter [id number] 08/18 [facility] Encounter [id number] 08/18 [facility] OFFICE O/P EST LOW 20 MIN [id number] Diagnos is: ICD-10- CM M25.512 Pain in left shoulde r JEAN WALDEN RD D 09/21 [facility] En[facility] [id number] 09/22 [facility] INTRM OPH EXAM EST PATIENT [id number] Diagnos is: ICD-10- CM 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, left eye KAYLEIGH REYES 09/26 [facility] FUNDUS PHOTOGRAPH Y W/I&R [id number] Diagnos is: ICD-10- CM 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, left eye KAYLEIGH REYES GAMALIEL 09/26 [facility] CPTR OPHTH DX IMG POST SEGMT [id number] Diagnos is: ICD-10- CM 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, left eye KAYLEIGH REYES 09/26 [facility] RPR&REFITG SPECT XCP APHAKIA [id number] Diagnos is: ICD-10- CM Z46.0 Encount er for fit/adj st of spectac les and contact lenses KAYLEIGH REYES 09/26 [facility] OFFICE O/P NEW LOW 30 MIN [id number] Diagnos is: ICD-10- CM M54.2 Cervica harjit TAVARESRINCONSamuel PORTER 09/28 [facility] OFF/OP EST NOVEMBER X REQ PHY/QHP [id number] Diagnos is: ICD-10- CM R73.01 Impaire d fasting glucose MARCO ANTONIO CORRALES 09/28 [facility] MANUAL THERAPY 1/> REGIONS [id number] Diagnos is: ICD-10- CM M54.2 Cervica harjit TAVARESRINCONSamuel PORTER 09/29 [facility] Outpatient Encounter [id number] 10/07 [facility] THERAPEUTI C EXERCISES [id number] Diagnos is: ICD-10- CM M25.512 Pain in left shoulde r MACHONBRAULIO E 10/10 [facility] Outpatient Encounter [id number] 10/11 [facility] MANUAL THERAPY 1/> REGIONS [id number] Diagnos is: ICD-10- CM M54.2 Cervica SERGEY Bridges RA 10/11 [facility] Out[facility] Encounter [id number] 10/12 [facility] MANUAL THERAPY 1/> REGIONS [id number] Diagnos is: ICD-10- CM M25.512 Pain in left shoulde r Greta ELY GURPREET 10/17 [facility] OFFICE O/P EST LOW 20 MIN [id number] Diagnos is: ICD-10- CM 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, unspeci JEAN Nj RD D 10/18 [facility] FIT SPECTACLES MULTIFOCAL [id number] Diagnos is: ICD-10- CM Z46.0 Encount er for fit/adj st of spectac les and contact lenses PRADIP,A BONITA J 10/18 [facility] MANUAL THERAPY /> REGIONS [id number] Diagnos is: ICD-10- CM M54.2 Cervica SERGEY Bridges RA 10/20 [facility] THERAPEUTI C EXERCISES [id number] Diagnos is: ICD-10- CM M25.512 Pain in left shoulde r JENNIFER BLANCO 10/25 [facility] MANUAL THERAPY 1/> REGIONS [id number] Diagnos is: ICD-10- CM M54.2 Cervica SERGEY Bridges RA 10/27 [facility] THERAPEUTI C EXERCISES [id number] Diagnos is: ICD-10- CM M25.512 Pain in left shoulde r BRAULIO JEFFERSON LIE E 11/02 [facility] MANUAL THERAPY 1/> REGIONS [id number] Diagnos is: ICD-10- CM M54.2 Cervica SERGEY Bridges RA 11/06 [facility] THERAPEUTI C EXERCISES [id number] Diagnos is: ICD-10- CM M25.512 Pain in left shoulde BRAULIO Paez LIE E 11/09 [facility] RPR&REFITG SPECT XCP APHAKIA [id number] Diagnos is: ICD-10- CM Z46.0 Encount er for fit/adj st of spectac les and contact lenses Johnna MOSELEY BONITA J 11/10 [facility] MANUAL THERAPY 1/> REGIONS [id number] [id number] Diagnos is: ICD-10- CM M54.2 Cervica SERGEY Bridges RA 11/10 [facility] THERAPEUTI C EXERCISES [id number] Diagnos is: ICD-10- CM M25.512 Pain in left shoulde r BRAULIO JEFFERSON LIE E 11/23 [facility] OFF/OP EST MAY X REQ PHY/QHP [id number] Diagnos is: ICD-10- CM I73.9 Periphe ral vascula r disease , unspeci fiMARCO ANTONIO Khan VIOLA 11/27 [facility] MANUAL THERAPY 1/> REGIONS [id number] Diagnos is: ICD-10- CM M54.2 Cervica harjit TAVARESSERGEY RA 12/07 [facility] Out[facility] Encounter [id number] 01/01 [facility] Out[facility] Encounter [id number] 01/04 [facility] OFFICE O/P EST LOW 20 MIN [id number] Diagnos is: ICD-10- CM L71.8 Other rosacea ERICKAYLEIGH 01/11 [facility] RPR&REFITG SPECT XCP APHAKIA [id number] [id number] Diagnos is: ICD-10- CM Z46.0 Encount er for fit/adj st of spectac les and contact lenses PRADIP,A BONITA J 01/11 [facility] Out[facility] Encounter [id number] 01/18 [facility] Encounter [id number] 01/29 [facility] OFFICE O/P EST SF 10 MIN [id number] Diagnos is: ICD-10- CM M54.2 Cervica SERGEY Bridges RA 01/29 [facility] Out[facility] Encounter [id number] 01/29 [facility] OFF/OP EST NOVEMBER X REQ PHY/QHP [id number] Diagnos is: ICD-10- CM I73.9 Periphe ral vascula r disease , unspeci MARCO ANTONIO Perez 02/05 [facility] Out[facility] Encounter [id number] 02/06 [facility] MANUAL THERAPY 1/> REGIONS [id number] [id number] Diagnos is: ICD-10- CM M54.2 Cervica SERGEY Bridges RA 02/22 [facility] HEARING AID REPAIR/MOD IFYING [id number] Diagnos is: ICD-10- CM Z46.1 Encount er for fitting and adjustm ent of hearing aid SOHAN APONTE 02/23 [facility] MANUAL THERAPY 1/> REGIONS [id number] Diagnos is: ICD-10- CM M77.11 Lateral epicond ylitis, right elbow MACHON,BRAULIO LIE E 03/06 [facility] NURSING ASSESSMENT /EVALUATN [id number] Diagnos is: ICD-10- CM M25.519 Pain in unspeci fied shoulde susan COLLINS,Malini VALLEPaul M 03/06 [facility] OFFICE O/P EST LOW 20 MIN [id number] 1. Diagnos is: ICD-10- CM M54.2 Cervica OTTO Kincaid 03/06 [facility] Outpatient Encounter [id number] D 03/07 [facility] MANUAL THERAPY 1/> REGIONS [id number] [id number] Diagnos is: ICD-10- CM M54.2 HOMER PatelSamuel PORTER 03/09 [facility] PRINCESS MDLTY 1+ULTRASOU ND EA 15 [id number] [id number] Diagnos is: ICD-10- CM M77.11 Lateral epicond ylitis, right elbow MACHON,BRAULIO LIE E 03/13 [facility] HEARING AID FITTING/CH ECKING [id number] [id number] Diagnos is: ICD-10- CM Z46.1 Encount er for fitting and adjustm ent of hearing aid HOMER JORDAN L 03/14 [facility] MANUAL THERAPY 1/> REGIONS [id number] [id number] Diagnos is: ICD-10- CM M54.2 SERGEY Patel RA 03/16 [facility] MANUAL THERAPY 1/> REGIONS [id number] Diagnos is: ICD-10- CM M54.2 SERGEY Patel RA 03/20 [facility] Outpatient Encounter [id number] 03/20 [facility] MANUAL THERAPY 1/> REGIONS [id number] [id number] Diagnos is: ICD-10- CM M54.2 Georgeica SERGEY Bridges RA 03/23 [facility] OFF/OP EST MAY X REQ PHY/QHP [id number] [id number] Diagnos is: ICD-10- CM I73.9 Periphe ral vascula r disease , unspeci MARCO ANTONIO Perez 03/29 [facility] Out[facility] Encounter [id number] 1.03/29 [facility] MANUAL THERAPY 1/> REGIONS [id number] 1. 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 Diagnos is: ICD-10- CM M25.512 Pain in left shoulde r RONNYBRAULIO LIE E 04/06 [facility] MANUAL THERAPY 1/> REGIONS [id number] 1. Diagnos is: ICD-10- CM M54.2 Cervica SERGEY Bridges RA 04/11 [facility] THERAPEUTI C EXERCISES [id number] [id number] Diagnos is: ICD-10- CM M25.512 Pain in left shoulde r BRAULIO JEFFERSON LIE E 04/16 [facility] Outpatient Encounter [id number] 04/19 [facility] OFFICE O/P EST LOW 20 MIN [id number] 1. Diagnos is: ICD-10- CM I25.10 Athscl heart disease of [place]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 w/o ang pctJEAN Jalloh RD 04/23 [facility] THERAPEUTI C EXERCISES [id number] Diagnos is: ICD-10- CM M25.512 Pain in left shoulde r RONNYBRAULIO LIE E 04/24 [facility] Out[facility] Encounter [id number] 04/27 [facility] Outpatient Encounter [id number] 04/27 [facility] THERAPEUTI C EXERCISES [id number] Diagnos is: ICD-10- CM M25.512 Pain in left shoulde BRAULIO Paez LIE E 05/01 [facility] THERAPEUTI C EXERCISES [id number] [id number] Diagnos is: ICD-10- CM M25.512 Pain in left shoulde BRAULIO Paez LIE E 05/16 [facility] HEARING AID REPAIR/MOD IFYING [id number] [id number] Diagnos is: ICD-10- CM Z46.1 Encount er for fitting and adjustm ent of hearing aid AURELIA NAVARRETE 05/16 [facility] THERAPEUTI C EXERCISES [id number] Diagnos is: ICD-10- CM M25.512 Pain in left shoulde BRAULIO Paez E 05/21 [facility] THERAPEUTI C EXERCISES [id number] [id number] Diagnos is: ICD-10- CM M25.512 Pain in left shoulde BRAULIO Paez LIE E 05/29 [facility] THERAPEUTI C EXERCISES [id number] [id number] Diagnos is: ICD-10- CM M25.512 Pain in left shoulde r BRAULIO JEFFERSON LIE E 06/05 [facility] PARNG/CUTG B9 HYPRKR LES 2-4 [id number] [id number] Diagnos is: ICD-10- CM I73.9 Periphe ral vascula r disease , unspeci fiMARCO ANTONIO Khan VIOLA 06/07 [facility] THERAPEUTI C EXERCISES [id number] 1. Diagnos is: ICD-10- CM M25.512 Pain in left shoulde r RONNYBRAULIO LIE E 06/12 [facility] Outpatient Encounter [id number] 1.06/14 [facility] QNHP OL DIG ASSMT&MGMT 5-10 [id number] [id number] Diagnos is: ICD-10- CM Z12.2 Encntr screen for maligna nt neoplas m of respira tory organs ADRIENNE, VALERI L 06/14 [facility] Outpatient Encounter [id number] 06/14 [facility] OFFICE O/P EST SF 10 MIN [id number] 1. Diagnos is: ICD-10- CM M54.2 Cervica ladiia SERGEY TAVARES RA 06/15 [facility] THERAPEUTI C EXERCISES [id number] [id number] Diagnos is: ICD-10- CM M25.512 Pain in left shoulde r RONNYBRAULIO LIE E 06/26 [facility] MANUAL THERAPY 1/> REGIONS [id number] [id number] Diagnos is: ICD-10- CM M54.2 Cervica SERGEY Bridges RA 06/26 [facility] THERAPEUTI C EXERCISES [id number] [id number] Diagnos is: ICD-10- CM M25.512 Pain in left shoulde r BRAULIO JEFFERSON LIE E 07/03 [facility] Out[facility] Encounter [id number] 1.07/06 [facility] THERAPEUTI C EXERCISES [id number] [id number] Diagnos is: ICD-10- CM M25.512 Pain in left shoulde r BRAULIO JEFFERSON LIE E 07/10 [facility] Out[facility] Encounter [id number] 1.07/12 [facility] MANUAL THERAPY 1/> REGIONS [id number] [id number] Diagnos is: ICD-10- CM M54.2 Cervica SERGEY Bridges RA 07/12 [facility] Out[facility] Encounter [id number] 07/24 [facility] THERAPEUTI C EXERCISES [id number] [id number] Diagnos is: ICD-10- CM M25.512 Pain in left shoulde r BRAULIO JEFFERSON LIE E 07/24 [facility] Out[facility] Encounter [id number] 08/07 [facility] Out[facility] Encounter [id number] 08/09 [facility] THERAPEUTI C EXERCISES [id number] [id number] Diagnos is: ICD-10- CM M25.512 Pain in left shoulde r MACHON,BRAULIO LIE E 08/10 [facility] Out[facility] Encounter [id number] 08/13 [facility] OFF/OP EST NOVEMBER X REQ PHY/QHP [id number] [id number] Diagnos is: ICD-10- CM I73.9 Periphe ral vascula r disease , unspeci fiMARCO ANTONIO Khan VIOLA 08/14 [facility] THERAPEUTI C EXERCISES [id number] [id number] Diagnos is: ICD-10- CM M25.512 Pain in left shoulde r RONNYBRAULIO LIE E 08/28 [facility] THERAPEUTI C EXERCISES [id number] Diagnos is: ICD-10- CM M25.512 Pain in left shoulde r RONNYBRAULIO LIE E 09/12 [facility] Out[facility] Encounter [id number] 09/13 [facility] Out[facility] Encounter [id number] [id number] 09/29 [facility] TRIM NAIL(S) [id number] [id number] Diagnos is: ICD-10- CM I73.9 Periphe ral vascula r disease , unspeci MARCO ANTONIO Perez VIOLA 10/04 [facility] Out[facility] Encounter [id number] 10/12 [facility] Out[facility] Encounter [id number] 10/16 [facility] OFFICE O/P EST LOW 20 MIN [id number] Diagnos is: ICD-10- CM I10 Essenti al (primar y) hyperte nsJEAN Castaneda RD 10/16 [facility] Out[facility] Encounter [id number] 10/19 [facility] Encounter [id number] [id number] 11/11 [facility] Social History Combined list of available smoking, tobacco, and other social history from Department of Defense and Veterans Affairs facilities. Social History Type Response Date Comment Source Tobacco smoking status [facility] VA-TOBACCO FORMER USER 04/23/2024 [facility] History of tobacco use VA-TOBACCO QUIT 5 TO < 15 YRS 04/23/2024 [facility] History of tobacco use VA-TOBACCO FORMER USER 04/13/2023 [facility] History of tobacco use VA-TOBACCO FORMER USER 04/14/2022 [facility] History of tobacco use VA-TOBACCO QUIT 5 TO < 15 YRS 04/10/2021 [facility] [place] [facility] [place] [facility] of [facility] [place] History of tobacco use QUIT TOBACCO USE 1-7 YEARS AGO 12/21/2017 5 or 6 years ago [facility] [place] [facility] History of tobacco use QUIT TOBACCO USE 1-7 YEARS AGO 05/19/2017 [facility] [place] [facility] History of tobacco use QUIT TOBACCO USE 1-7 YEARS AGO 08/19/2016 [facility] [place] [facility] History of tobacco use QUIT TOBACCO USE 1-7 YEARS AGO 02/12/2016 [facility] [place] [facility] History of tobacco use QUIT TOBACCO USE IN PAST YEAR 08/08/2015 pt states he stooped smmoking in the past yr. [facility] [place] [facility] History of tobacco use NEVER USED TOBACCO or not in last 7yrs 10/09/2014 [facility] History of tobacco use V16 TOBACCO MEDS OFFERED 12/26/2013 [facility] History of tobacco use V16 TOBACCO CESSATION <12 MONTHS 12/26/2013 quit 4 weeks ago [facility] History of tobacco use V16 LIFETIME NON-TOBACCO USER 06/20/2012 [facility] History of tobacco use V16 TOBACCO CESSATION > 12 MONTHS 10/23/2010 [facility] History of tobacco use V16 TOBACCO CESSATION > 12 MONTHS 10/16/2009 [facility] History of tobacco use V16 TOBACCO CESSATION > 12 MONTHS 08/30/2008 [facility] History of tobacco use QUIT TOBACCO USE IN LAST YEAR 11/16/2007 does not remember exact date but believes it was October 2006 [facility] History of tobacco use QUIT TOBACCO USE IN LAST YEAR 02/03/2007 [facility] History of tobacco use CURRENT SMOKER 08/23/2006 [facility] History of tobacco use TOBACCO COUNSELING 3 07/28/2005 [facility] History of tobacco use TOBACCO COUNSELING 2 04/15/2005 [facility] History of tobacco use TOBACCO COUNSELING 1 03/25/2005 [facility] History of tobacco use TOBACCO COUNSELING 2 08/14/2004 [facility] History of tobacco use TOBACCO COUNSELING 1 04/03/2004 [facility] History of tobacco use TOBACCO COUNSELING 3 11/12/2003 [facility] History of tobacco use TOBACCO COUNSELING 2 09/12/2003 [facility] History of tobacco use TOBACCO CESSATION: <1 YEAR 06/24/2003 STATES HE QUIT SMOKING 05/26 [facility] Plan of Care List of future care activities from [facility] facilities. Additional future care activities may be listed in the Assessment and Plan section. Date/Time Care Activity Care Activity Detail Facili 12/12/2024 AMBULATORY - MEDICINE AMBULATORY - MEDICI [facility] Advance Directives List of completed, amended, or rescinded Advance Directives on record at Department [facility] facilities. An actual copy of the Directive is not included. Date Advance Directive Provider Source 06/20/2012 ADVANCE DIRECTIVE DISCUSSION MONIKA IZAGUIRRE [facility]
--- OUTSIDE RECORDS SUMMARY | 2024-11-11 14:57 | XMS_ITS ---
Author Name [facility] [place] [facility] [place] Address [address] [place] [address] Care Team Providers Care Desktop Publishing Operator Name Role Phone LETICIA WALDEN Primary [...] PART B Apr 24, 2013 PART B [id number] [id number] [place] R[place] PATIENT MEDICARE (WNR) MEDICARE () PART B Apr 24, 2013 PART B [id number] [facility] [place] R[place] PATIENT MEDICARE (WNR) MEDICARE () PART B Apr 24, 2013 PART B [id number] [place] RY PATIENT MEDICARE (WNR) MEDICARE () PART A November 23, 2011 PART A [id number] [place] RY PATIENT MEDICARE (WNR) MEDICARE () PART A November 23, 2011 PART A [id number] [id number] [place] DYE RY PATIENT MEDICARE (WNR) MEDICARE () PART A November 23, 2011 PART A [id number] KLEBER DYE PATIENT [employer] [place] [employer] PLAN G PLAN G Apr 24, 2013 PLAN G [id number] KLEBER DYE PATIENT [employer] [place] [employer] PLAN G Apr 24, 2013 PLANG [id number] KLEBER DYE PATIENT [employer] [place] [employer] PLAN G PLANG Apr 24, 2013 PLANG [id number] KLEBER DYE PATIENT Selected Encounter This section includes the information on record at [place] for the Encounter. 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 Date/Time Primary/Secondary Diagnosis Diagnosis Name Provider Source May 02, 2024 04:44 PM PRIMARY CervicalMICHELLE Hand [facility] Plan of Treatment: Future Appointments (+ 6 months) and Future Tests (+/- 45 days) The Plan of Treatment section includes future care activities for the patient from all [place] [facility]. This section includes future appointments and future orders which are active, pending or scheduled. Future Appointments This section includes appointments that were scheduled to occur 6 months from the date of the Encounter, up to a maximum of 20 appointments. The data comes from all [place] treatment facilities. Appointment Date/Time Appointment Type Appointme nt Facility Name Feb 24, 2024 09:00 AM AMBULATORY - MEDICINE [facility] Feb 24, 2024 11:30 AM AM[place] [facility] Mar 06, 2024 11:00 AM [place] [facility] Mar 06, 2024 01:00 PM AMBULATORY - MEDICINE [facility] Mar 06, 2024 02:30 PM AMBULATORY - MEDICINE [facility] Mar 09, 2024 10:30 AM [facility] Mar 09, 2024 01:00 PM [facility] Mar 13, 2024 10:30 AM [facility] Mar 14, 2024 02:30 PM [facility]BUL[facility] Mar 16, 2024 10:30 AM [facility]INE [facility] Mar 20, 2024 09:30 AM [facility]INE [facility] Mar 23, 2024 10:30 AM [facility]INE [facility] Mar 29, 2024 11:30 AM [facility]INE [facility] Mar 30, 2024 09:00 AM [facility]INE [facility] Apr 03, 2024 11:30 AM [facility]INE [facility] Apr 03, 2024 12:15 PM [facility]INE [facility] Apr 04, 2024 03:00 PM [facility]ORY [facility]INE [facility] Apr 06, 2024 10:30 AM AMBULAT[facility]IN [facility] Apr 11, 2024 09:30 AM [facility]INE [facility] Apr 16, 2024 03:00 PM [facility]UL[facility] Social History: Smoking Status (Most [...] place. Date/Time Current Smoking Status Comment Ivan bryson Apr 13, 2023 11:00 AM VA-TOBACCO FORMER USER [place] [facility] Tobacco Use History This section includes a history of the smoking, or tobacco-related health factors, that were collected on or before the date of the Encounter. The data comes from the [place] facility where the Encounter took place. Date/Time Smoking Status/Tobac co Use Comment Facility Apr 13, 2023 11:00 AM VA-TOBACCO QUIT 5 TO < 15 YRS [facility] Apr 14, 2022 01:30 PM VA-TOBACCO FORMER USER [facility] Apr 14, 2022 01:30 PM VA-TOBACCO QUIT 5 TO < 15 YRS [facility] Apr 10, 2021 10:00 AM VA-TOBACCO FORMER USER [facility] Apr 10, 2021 10:00 AM VA-TOBACCO QUIT 5 TO < 15 YRS [facility] Apr 02, 2020 10:30 AM VA-TOBACCO FORMER USER [facility] Apr 02, 2020 10:30 AM VA-TOBACCO QUIT 5 TO < 15 YRS [place] [facility] Sep 29, 2018 08:52 AM VA-TOBACCO FORMER USER [facility] Sep 29, 2018 08:52 AM VA-TOBACCO QUIT 15 YRS OR MORE [facility] December 21, 2017 12:27 PM QUIT TOBACCO USE 1-7 YEARS AGO 5 or 6 years ago [facility] May 19, 2017 10:21 AM QUIT TOBACCO USE 1-7 YEARS AGO [facility] Aug 19, 2016 09:56 AM QUIT TOBACCO USE 1-7 YEARS AGO [facility] Feb 12, 2016 11:34 AM QUIT TOBACCO USE 1-7 YEARS AGO [facility] Aug 08, 2015 03:04 PM QUIT TOBACCO USE 1-7 YEARS AGO [facility] Aug 08, 2015 03:04 PM QUIT TOBACCO USE IN PAST YEAR pt states he stooped smmoking in the past yr. [place] [facility] Advance Directives: All historical and [...] 20, 2012 ADVANCE DIRECTIVE DISCUSSION MONIKA IZAGUIRRE [facility] Radiology Reports: +/- 30 days of the [...] AM SPINE CERVICAL, 4 OR 5 VIEWS: SANCHO DYE [id number] -[phone] M Exm Date: MAR 09, 2024@09:52 Req Phys: BRYANNA MOORE Pat Loc: C[facility]/NO/SICK CALL PA (Req'g Loc Img Loc: [facility]/BUILDING 1 Service: [place] [address] (Case [id number] COMPLETE) SPINE CERVICAL, 4 OR 5 VIEWS (RAD Detailed) CPT:22822 Reason for Study: pain with radiating features to the left shoulder Clinical History: Report Status: Verified Date Reported: MAR 09, 2024 Date Verified: MAR 09, 2024 Industrial Technologist E-Sig:/ES/MIRTA NAVAS JR Report: Study: AP, lateral [...] Primary Interpreting Staff: MIRTA NAVAS JR, Radiologist (Industrial Technologist) /MIRTA CASIANO JR [facility] Encounter Notes: All associated encounter notes This section contains the clinical notes associated to the Encounter. Date/Time Encounter Note(s) Provider Source Feb 23, 2024 09:31 AM CHIROPRACTIC NOTE: LOCAL TITLE: CHIROPRACTOR PROGRESS NOTE STANDARD TITLE: CHIROPRACTIC NOTE DATE OF NOTE: FEB 23, 2024@09:31 ENTRY DATE: FEB 23, 2024@09:31:32 AUTHOR: MICHELLE TAVARES COSIGNER: URGENCY: STATUS: COMPLETED [...] 06/24/2023 LETICIA WALDEN AF- Atrial Fibrillation (SCT [id number] 12/23/2017 LETICIA WALDEN Coronary artery disease I25.10, [...] R shoulder Takes anti-coagulants Patient [facility] [place] [facility] with report that he is taking Tylenol every 6 hours for pain in left interscapular area. He was better for a short while after the last visit. He also C/O pain in R elbow. He points to bicep insertion and mid deltoid. Patient has appt w OT Vet inquires about Acupuncture and Massage therapy. [...] different bed. He just flew down to [place]. HX; During service natural falls down but [...] of cortisone which alleviated the sx. 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 The prognosis, at this time, is fair to good. Plan: Recommend that patient consider Yoga or Acupuncture or Massage therapy FU 1 weeks Short term goals include improvement in excess 25% on regional disability questionnaire and/or NRS over the first 3-4 treatment visits. It was explained to the patient that resolution of soft tissue complaintsthrough conservative management requires compliance with at home recommendations and avoidance of aggravating factors. Self-Care Recommendations: Apply ice pack over a thin cloth to R forearm 10 minutes or rub an ice cube for one minute. Twice daily ~Patient encouraged to engage in activities such [...] core stability, balance, and pain modulation. Visit 10 F/U 4 weekly Seek urgent care as needed. CMT: chiropractic manipulative therapy SMT: Spinal Manipulative Therapy F/D: Flexion Distraction MFR: Myofascial Release S-I: Sacroiliac MFTP: Myofascial Trigger Point NRS: Numeric Rating Scale N/T: Numbness/Tingling PIR: Post isometric relaxation /es/ MICHELLE TAVARES D.C. CHIROPRACTOR Signed: 02/23/2024 09:57 MICHELLE TAVARES [facility]
--- OUTSIDE RECORDS SUMMARY | 2024-11-11 14:57 | XMS_ITS ---
Author Name [facility] Organization [facility] Address [address] [place] [address] Care Team Providers Care Chief Librarian Circulation Department Name Role Phone LETICIA WALDEN Primary Care [...] PART B Apr 24, 2013 PART B [id number] KLEBER DYE RY PATIENT MEDICARE (WNR) MEDICARE () PART B Apr 24, 2013 PART B [id number] KLEBER DYE RY PATIENT MEDICARE (WNR) MEDICARE () PART B Apr 24, 2013 PART B [id number] KLEBER DYE RY PATIENT MEDICARE (WNR) MEDICARE () PART A November 23, 2011 PART A [id number] KLEBER DYE RY PATIENT MEDICARE (WNR) MEDICARE () PART A November 23, 2011 PART A [id number] [id number] KLEBER DYE RY PATIENT MEDICARE (WNR) MEDICARE () PART A November 23, 2011 PART A [id number] KLEBER DYE PATIENT [employer] PLAN G PLAN G Apr 24, 2013 PLAN G [id number] KLEBER DYE PATIENT [employer] PLAN G PLANG Apr 24, 2013 PLANG [id number] KLEBER DYE PATIENT [employer] PLAN G Apr 24, 2013 PLANG [id number] KLEBER DYE PATIENT Selected Encounter This section includes the information on record at [place] for the Encounter. Date/Time Encounter Type Encounter Description Reason Provider Source Mar 23, 2024 10:30 AM MANUAL THERAPY 1/> [facility] TESTER [employer] ICD-10-CM M54.2 Cervicalgia MICHELLE TAVARES Greta Encounter Template Text not used by [place] Assessments - Encounter Diagnoses This section includes the primary and secondary diagnoses documented for the Encounter. Date/Time Primary/Secondary Diagnosis Diagnosis Name Provider Source Apr 10, 2024 02:22 PM PRIMARY Cervicalgia [facility] [place] [facility] Plan of Treatment: Future Appointments (+ 6 months) and Future Tests (+/- 45 days) The Plan of Treatment section includes future care activities for the patient from all [facility] This section includes future appointments and future orders which are active, pending or scheduled. Future Appointments This section includes appointments that were scheduled to occur 6 months from the date of the Encounter, up to a maximum of 20 appointments. The data comes from all [place] treatment facilities. Appointment Date/Time Appointment Type Appointme nt Facility Name Mar 29, 2024 11:30 AM AMBULATORY - MEDICINE [facility] [place] [facility] Mar 30, 2024 09:00 AM AMBULATORY - MEDICINE [facility] [place] [facility] Apr 03, 2024 11:30 AM AMBULATORY - MEDICINE [facility] [place] [facility] Apr 03, 2024 12:15 PM AMBULATORY - MEDICINE [facility] [place] [facility] Apr 04, 2024 03:00 PM AMBULATORY - MEDICINE [facility] [place] [facility] Apr 06, 2024 10:30 AM AMBULATORY - REHAB MEDICIN E [facility] [place] [facility] Apr 11, 2024 09:30 AM [facility] [place] [facility] Apr 16, 2024 03:00 PM AMBULATORY - REHAB MEDICIN E [facility] [place] [facility] Apr 23, 2024 10:00 AM AMBULATORY - MEDICINE [facility] [place] [facility] Apr 24, 2024 10:00 AM AMBULATORY - REHAB MEDICIN E [facility] [place] [facility] Apr 27, 2024 10:15 AM AMBULATORY - MEDICINE [facility] [place] [facility] May 01, 2024 10:00 AM AMBULATORY - REHAB MEDICIN E [facility] [place] [facility] May 16, 2024 10:00 AM AMBULATORY - REHAB MEDICIN E [facility] [place] [facility] May 16, 2024 11:00 AM AMBULATORY - REHAB MEDICIN E [facility] [place] [facility] May 21, 2024 03:00 PM AMBULATORY - REHAB MEDICIN E [facility] [place] [facility] May 29, 2024 10:30 AM AMBULATORY - REHAB MEDICIN E [facility] [place] [facility] Jun 05, 2024 10:00 AM AMBULATORY - REHAB MEDICIN E [facility] [place] [facility] Jun 07, 2024 03:00 PM AMBULATORY - MEDICINE [facility] [place] [facility] Jun 12, 2024 10:00 AM AMBULATORY - REHAB MEDICIN E [facility] [place] [facility] Jun 14, 2024 10:30 AM AMBULATORY - NONE [facility] [place] [facility] Lab Results: +/- 30 days of the encounter This section includes the Chemistry and Hematology Lab Results on record with [facility] for the patient. Radiology Reports and Pathology Reports are provided separately, in subsequent sections. Lab Results This section contains the Chemistry/Hematology Results that were resulted 30 days before or 30 daysafter the date of the Encounter. Date/Time Source Result Type Result - Unit Interpretation Reference Range Specimen Type Comment Apr 19, 2024 09:58 AM [facility] [place] [facility] BASIC METABOLIC PANEL (fasting) SERUM Specime n Type: SERUM No comment entered. Ordering Provider: LETICIA WALDEN Report Released Date/Time: Apr 14, 2024 05:40 PM Reporting [facility] [address] [address] Performing Lab: [facility] [address] UREA NITROGEN 17 mg/dL 7-25 GLUCOSE 103 mg/dL H 65-100 SODIUM 139 mmol/L 135-145 POTASSIUM 4.2 mmol/L 3.5-5.0 CHLORIDE 107 mmol/L 100-110 CO2 25 meq/L 20-30 CREATININE, Serum 1.05 mg/dL 0.50-1.40 eGFR(CKD-EPI 2020) 73 mL/min >60 Apr 19, 2024 09:58 AM [facility] LIVER FUNCTION SERUM Specimen Type: SERUM No comment entered. Ordering Provider: LETICIA WALDEN Report Released Date/Time: Apr 14, 2024 05:40 PM Reporting Lab: [facility] [address] Performing Lab: [facility] [address] PROTEIN,TOTAL 6.8 g/dL 6.0-8.3 ALBUMIN 3.8 g/dL 3.5-5.0 ALKALINE PHOSPHATASE 69 U/L 40-150 AST 17 U/L 5-34 ALT 27 U/L BILIRUBIN, TOTAL 0.6 mg/dL 0.2-1.2 Apr 19, 2024 09:58 AM [facility] TSH SERUM Specimen Type: SERUM No comment entered. Ordering Provider: LETICIA WALDEN Report Released Date/Time: Apr 14, 2024 05:40 PM Reporting [facility]: [facility] [address] Performing Lab: [facility] [address] TSH 2.19 u[IU]/mL 0.35-5.00 Apr 19, 2024 09:58 AM [facility] LIPID PANEL FASTING SERUM Specimen Type: SERU M No comment entered. Ordering Provider: LETICIA WALDEN Report Released Date/Time: Apr 14, 2024 05:40 PM Reporting Lab: [facility] [address] [address] Performing Lab: [address] [address] CHOLESTEROL 120 mg/dL TRIGLYCERIDE 98 mg/dL 0-150 LDL calculated 63 mg/dL 0-129 CHOL/HDL 3.2 HDL CHOLESTEROL 37 mg/dL L 40-60 Apr 19, 2024 09:58 AM [facility] URIC ACID SERUM Specimen Type: SERUM No comment entered. Ordering Provider: LETICIA WALDEN Report Released Date/Time: Apr 14, 2024 05:40 PM Reporting Lab: [address] [address] Performing Lab: [address] [address] URIC ACID 3.1 mg/dL L 3.5-7.2 Apr 19, 2024 09:58 AM [facility] CBC AND DIFF (AUTO) BLOOD Specimen Type: BLOO D No comment entered. Ordering Provider: LETICIA WALDEN Report Released Date/Time: Apr 14, 2024 05:40 PM Reporting Lab: [facility] [address] [address] Performing Lab: [address] [address] WBC 6.75 10*3/uL 4.50-11.00 RBC 3.99 10*6/uL L 4.23-5.66 HGB 12.6 g/dL L 12.8-17 HCT 37.7 L 39.2-50.4 MCV 94.5 fL 82-99 MCHC 33.4 g/dL 30.8-35.1 PLT 237 10*3/uL 140-360 RDW-CV 13.4 12.0-16.0 MONO, ABS 0.62 10*3/uL 0.30-1.10 MCH 31.6 pg 26.2-32.6 NEUT % 50.8 43.7-75.8 LYMPH % 33.2 14.0-42.3 MONO % 9.2 5.1-13.7 EOS % 5.8 0.4-6.8 BASO % 0.6 0.1-2.0 NEUT, ABS 3.43 10*3/uL 2.20-7.60 LYMPH, ABS 2.24 10*3/uL 1.00-3.20 EOS, ABS 0.39 10*3/uL 0.03-0.44 BASO, ABS 0.04 10*3/uL 0.01-0.13 IMMATURE GRAN % 0.4 0.0-0.7 IMMATURE GRAN, ABS 0.03 10*3/uL 0.00-0.0 6 NRBC % 0.0 0.0-0.0 NRBC, ABS 0.00 10*3/uL 0.00-0.00 Apr 19, 2024 09:58 AM [facility] URINALYSIS CLEAN CATCH URINE Specimen Type: U RINE Comment: If Glucose = >500 and Ketones are positive, please alert the Physician. Ordering Provider: LETICIA WALDEN Report Released Date/Time: Apr 14, 2024 05:40 PM Reporting Lab: [address] [address] Performing Lab: [address] [address] UA COLOR Light-Yellow Yellow UA APPEARANCE Clear Clear UA GLUCOSE Normal mg/dL Negative UA KETONES NEGATIVE mg/dL Negative UA BLOOD NEGATIVE mg/dL Negative UA PROTEIN NEGATIVE mg/dL Negative UA NITRITE NEGATIVE mg/dL Negative UA BILIRUBIN NEGATIVE mg/dL Negative UA SPECIFIC GRAVITY 1.012 L 1.016-1.022 UA pH 6.0 5.0-9.0 UA UROBILINOGEN Normal mg/dL <2.0 UA LEUKOCYTE NEGATIVE Negative Social History: Smoking Status (Most current) and Tobacco Use (All prior to encounter date) This section includes the most current, and the historical, smoking and tobacco- related health factors from the [place] facility where the Encounter took place. Current Smoking Status This section includes the most current smoking, or tobacco-related health factor, from the [place] facility where the Encounter took place. Date/Time Current Smoking Status Comment Facil [facility] Apr 13, 2023 11:00 AM VA-TOBACCO FORMER USER [place] [facility] [place] [facility] Tobacco Use History This section includes a history of the smoking, or tobacco-related health factors, that were collected on or before the date of the Encounter. The data comes from the [place] facility where the Encounter took place. Date/Time Smoking Status/Tobac co Use Comment Facility Apr 13, 2023 11:00 AM VA-TOBACCO QUIT 5 TO < 15 YRS [facility] [place] [facility] Apr 14, 2022 01:30 PM VA-TOBACCO FORMER USER [facility] [place] [facility] Apr 14, 2022 01:30 PM VA-TOBACCO QUIT 5 TO < 15 YRS [facility] [place] [facility] Apr 10, 2021 10:00 AM VA-TOBACCO FORMER USER [facility] [place] [facility] Apr 10, 2021 10:00 AM VA-TOBACCO QUIT 5 TO < 15 YRS [facility] [place] [facility] Apr 02, 2020 10:30 AM VA-TOBACCO FORMER USER [facility] [place] [facility] Apr 02, 2020 10:30 AM VA-TOBACCO QUIT 5 TO < 15 YRS [facility] [place] [facility] Sep 29, 2018 08:52 AM VA-TOBACCO FORMER USER [facility] [place] [facility] Sep 29, 2018 08:52 AM VA-TOBACCO QUIT 15 YRS OR MORE [facility] [place] [facility] December 21, 2017 12:27 PM QUIT TOBACCO USE 1-7 YEARS AGO 5 or 6 years ago [facility] [place] [facility] May 19, 2017 10:21 AM QUIT TOBACCO USE 1-7 YEARS AGO [facility] [place] [facility] Aug 19, 2016 09:56 AM QUIT TOBACCO USE 1-7 YEARS AGO [facility] [place] [facility] Feb 12, 2016 11:34 AM QUIT TOBACCO USE 1-7 YEARS AGO [facility] [place] [facility] Aug 08, 2015 03:04 PM QUIT TOBACCO USE 1-7 YEARS AGO [facility] [place] [facility] Aug 08, 2015 03:04 PM QUIT TOBACCO USE IN PAST YEAR pt states he stooped smmoking in the past yr. [facility] [place] [facility] Advance Directives: All historical and current Section Date Range: From patient's date of to the date document was created. This section includes ALL of a patient's completed or amended [place] Advance and Rescinded Directives. The entries below indicate that a directive exists for the patient, but an actual copy is not included with this document. The data comes from all [place] facilities. Date Advance Directives Provider Source Jun 20, 2012 ADVANCE DIRECTIVE DISCUSSION [facility] Radiology Reports: +/- 30 days of the [...] the Encounter. The data comes from all [place] treatment facilities. Date/Time Radiology Report Provider Source Mar 09, 2024 09:52 AM SPINE CERVICAL, 4 OR 5 VIEWS: SANCHO DYE [id number] [phone] M Exm Date: MAR 09, 2024@09:52 Req Phys: BRYANNA MOORE Pat Loc: CWM/NO/SICK CALL PA (Req'g Loc Img Loc: [facility] 1 Service: Unknown [place] [address] (Case [id number] COMPLETE) SPINE CERVICAL, 4 OR 5 VIEWS (RAD Detailed) CPT:33014 Reason for Study: pain with radiating features to the left shoulder Clinical History: Report Status: Verified Date Reported: MAR 09, 2024 Date Verified: MAR 09, 2024 Cloud Security Architect E-Sig:/ES/MIRTA NAVAS JR Report: Study: AP, lateral [...] Primary Interpreting Staff: MIRTA NAVAS JR, Radiologist (Cloud Security Architect) /MIRTA CASIANO JR [facility] Encounter Notes: All associated encounter notes This section contains the clinical notes associated to the Encounter. Date/Time Encounter Note(s) Provider Source Mar 23, 2024 10:13 AM CHIROPRACTIC NOTE: LOCAL TITLE: CHIROPRACTOR PROGRESS NOTE STANDARD TITLE: CHIROPRACTIC NOTE DATE OF NOTE: MAR 23, 2024@10:13 ENTRY DATE: MAR 23, 2024@10:13:35 AUTHOR: MICHELLE TAVARES COSIGNER: URGENCY: STATUS: SANCHO DELA CRUZ is a 77 WHITE MALE with prior [...] 06/24/2023 LETICIA WALDEN AF- Atrial Fibrillation (SCT [id number] 12/23/2017 LETICIA WALDEN Coronary artery disease I25.10, [...] R shoulder Takes anti-coagulants Patient [facility] with report that he heard from PT and has an appt towards the end of Mar. He thinks that he felt a tiny bit better. He still had to take medication at 2am but this morning he noticed a smaller less tight muscle in his neck. He continues to apply ice and then heat to area and feels some temporary relief. Vet states that the left upper trapezius/ upper interscapular area is the worst area of pain. Extension of neck and raising his left arm exacerbates the sx. He reports that he continues to take [...] different bed. He just flew down to [place]. HX; During service natural falls down but [...] of cortisone which alleviated the sx. 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 Treatment: Corrective/Active Manual therapy, 12 min cervical seated with manual axial traction . CMT low force AT cervical Treatment carried out today and well tolerated. Prognosis, at this time, is fair to good. Plan:trial 2 x's next week Short term goals include improvement in excess 25% on regional disability questionnaire and/or NRS over the first 3-4 treatment visits. It was explained to the patient that resolution of soft tissue complaintsthrough conservative management requires compliance with at home recommendations and avoidance of aggravating factors. Self-Care Recommendations: Apply ice pack over a thin cloth to neck 10 minutes/per hour at the most and apply at least three times daily. Move head slowly into rotation in pain free range. Avoid provocative motions like lifting arm in shower. ~Patient encouraged to engage in activities such [...] core stability, balance, and pain modulation. Visit 13 F/U 2 appts before PT starts Seek urgent care as needed. CMT: chiropractic manipulative therapy SMT: Spinal Manipulative Therapy F/D: Flexion Distraction MFR: Myofascial Release S-I: Sacroiliac MFTP: Myofascial Trigger Point NRS: Numeric Rating Scale N/T: Numbness/Tingling PIR: Post isometric relaxation /glenis/ MICHELLE TAVARES D.C. CHIROPRACTOR Signed: 03/23/2024 12:52 MICHELLE TAVARES [facility]
--- OUTSIDE RECORDS SUMMARY | 2024-11-11 14:57 | XMS_ITS | Encounter Summary ---
Author Name [facility] [place] Address [address] [place] [address] Care Team Providers Care Drum Reel Cutter Name Role Phone LETICIA WALDEN Primary Care [...] PART B Apr 24, 2013 PART B [id number] KLEBER DYE RY PATIENT MEDICARE (WNR) MEDICARE () PART B Apr 24, 2013 PART B [id number] [facility] KLEBER DYE RY PATIENT MEDICARE (WNR) MEDICARE () PART B Apr 24, 2013 PART B [id number] KLEBER DYE RY PATIENT MEDICARE (WNR) MEDICARE () PART A November 23, 2011 PART A [id number] [id number] KLEBER DYE RY PATIENT MEDICARE (WNR) MEDICARE () PART A November 23, 2011 PART A [id number] KLEBER DYE RY PATIENT MEDICARE (WNR) MEDICARE () PART A November 23, 2011 PART A [id number] KLEBER DYE PATIENT [employer] [place] [employer] PLAN G PLAN G Apr 24, 2013 PLAN G [id number] KLEBER DYE PATIENT [employer] [place] [employer] PLAN G Apr 24, 2013 PLANG [id number] KLEBER DYE PATIENT [employer] [place] [employer] PLAN G PLANG Apr 24, 2013 PLANG [id number] KLEBER DYE PATIENT Selected Encounter This section includes the information on record at [place] for the Encounter. Date/Time Encounter Type Encounter Description Reason Provider Source Sep 12, 2024 01:00 PM THERAPEUTIC EXERCISES OCCUPATIONAL THERAPY ICD-10-CM M25.512 Pain in left shoulder RICHMONDBRAULIO BAUERLISA Hernandes Greta Encounter Template Text not used by [place] Assessments - Encounter Diagnoses This section includes the primary and secondary diagnoses documented for the Encounter. Date/Time Primary/Secondary Diagnosis Diagnosis Name Provider Source Oct 01, 2024 01:22 PM PRIMARY Pain in left shoulder PAM JEFFERSON [facility] [place] [facility] Plan of Treatment: Future Appointments (+ 6 months) and Future Tests (+/- 45 days) The Plan of Treatment section includes future care activities for the patient from all [place] [facility] This section includes future appointments and future orders which are active, pending or scheduled. Future Appointments This section includes appointments that were scheduled to occur 6 months from the date of the Encounter, up to a maximum of 20 appointments. The data comes from all [place] treatment facilities. Appointment Date/Time Appointment Type Appointme nt Facility Name Oct 04, 2024 03:00 PM AMBULATORY - MEDICINE [place] [facility] [place] [facility] Oct 16, 2024 10:00 AM AMBULATORY - MEDICINE [place] [facility] [facility] December 12, 2024 11:30 AM AMBULATORY - MEDICINE [place] [facility] [facility] Dec 25, 2024 01:00 PM AMBULATORY - MEDICINE [place] [facility] [facility] Jan 01, 2025 09:00 AM AMBULATORY - MEDICINE [facility] [place] [facility] Lab Results: +/- 30 days of the encounter This section includes the Chemistry and Hematology Lab Results on record with [place] for the patient. Radiology Reports and Pathology Reports are provided separately, in subsequent sections. Lab Results This section contains the Chemistry/Hematology Results that were resulted 30 days before or 30 daysafter the date of the Encounter. Date/Time Source Result Type Result - Unit Interpretation Reference Range Specimen Type Comment Oct 04, 2024 12:21 PM [facility] LIVER FUNCTION SERUM Specimen Type: SERUM No comment entered. Ordering Provider: LETICIA WALDEN Report Released Date/Time: Oct 04, 2024 12:06 PM Reporting Lab: [address] [address] Performing Lab: [address] [address] PROTEIN,TOTAL 6.4 g/dL 6.0-8.3 ALBUMIN 3.5 g/dL 3.5-5.0 ALKALINE PHOSPHATASE 66 U/L 40-150 AST 13 U/L 5-34 ALT 15 U/L BILIRUBIN, TOTAL 0.7 mg/dL 0.2-1.2 Oct 04, 2024 12:21 PM [facility] TSH SERUM Specimen Type: SERUM No comment entered. Ordering Provider: LETICIA WALDEN Report Released Date/Time: Oct 04, 2024 12:06 PM Reporting Lab: [address] [address] Performing Lab: [address] [address] TSH 2.11 u[IU]/mL 0.35-5.00 Oct 04, 2024 12:21 PM [facility] BASIC METABOLIC PANEL (fasting) SERUM Specime n Type: SERUM No comment entered. Ordering Provider: LETICIA WALDEN Report Released Date/Time: Oct 04, 2024 12:06 PM Reporting Lab: [address] [address] Performing Lab: [address] [address] UREA NITROGEN 17 mg/dL 7-25 GLUCOSE 101 mg/dL H 65-100 SODIUM 139 mmol/L 135-145 POTASSIUM 4.5 mmol/L 3.5-5.0 CHLORIDE 108 mmol/L 100-110 CO2 23 meq/L 20-30 CALCIUM 8.8 mg/dL 8.5-10.2 CREATININE, Serum 1.11 mg/dL 0.50-1.40 eGFR(CKD-EPI 2020) 68 mL/min >60 Oct 04, 2024 12:21 PM [facility] LIPID PANEL FASTING SERUM Specimen Type: SERU M No comment entered. Ordering Provider: LETICIA WALDEN Report Released Date/Time: Oct 04, 2024 12:06 PM Reporting Lab: [address] [address] Performing Lab: [address] [address] CHOLESTEROL 88 mg/dL TRIGLYCERIDE 84 mg/dL 0-150 LDL calculated 41 mg/dL 0-129 CHOL/HDL 2.9 HDL CHOLESTEROL 30 mg/dL L 40-60 Oct 04, 2024 12:21 PM [facility] URIC ACID SERUM Specimen Type: SERUM No comment entered. Ordering Provider: LETICIA WALDEN Report Released Date/Time: Oct 04, 2024 12:06 PM Reporting Lab: [address] [address] Performing Lab: [address] [address] URIC ACID 3.1 mg/dL L 3.5-7.2 Oct 04, 2024 12:21 PM [facility] MICROSCOPIC AUTOMATED, URINE URINE Specimen T ype: URINE Comment: If Glucose = >500 and Ketones are positive, please alert the Physician. Ordering Provider: LETICIA WALDEN Report Released Date/Time: Oct 04, 2024 12:06 PM Reporting Lab: [facility] [address] [address] Performing Lab: [address] [address] UA WBC 0-5 /[HPF] 0-5 UA MUCUS FEW /[LPF] Trace UA HYALINE CASTS 5-9 /[LPF] H 0-2 UA RBC 6-10 /[HPF] H 0-3 Oct 04, 2024 12:21 PM [facility] CBC AND DIFF (AUTO) BLOOD Specimen Type: BLO OD No comment entered. Ordering Provider: LETICIA WALDEN Report Released Date/Time: Oct 04, 2024 12:06 PM Reporting Lab: [facility] [address] [address] Performing Lab: [facility] [address] [address] WBC 6.37 10*3/uL 4.50-11.00 RBC 3.82 10*6/uL [...] 10*3/uL 0.00-0.00 Oct 04, 2024 12:21 PM [facility] URINALYSIS CLEAN CATCH URINE Specimen Type: U RINE Comment: If Glucose = >500 and Ketones are positive, please alert the Physician. Ordering Provider: LETICIA WALDEN Report Released Date/Time: Oct 04, 2024 12:06 PM Reporting Lab: [facility] [address] [address] Performing Lab: [facility] [address] [address] UA COLOR Yellow Yellow UA APPEARANCE Clear [...] and tobacco- related health factors from the [place] facility where the Encounter took place. Current Smoking Status This section includes the most current smoking, or tobacco-related health factor, from the [place] facility where the Encounter took place. Date/Time Current Smoking Status Comment [facility] Apr 23, 2024 10:00 AM [place]-TOBACCO QUIT 5 TO < 15 YRS [facility] Tobacco Use History This section includes a history of the smoking, or tobacco-related health factors, that were collected on or before the date of the Encounter. The data comes from the [place] facility where the Encounter took place. Date/Time Smoking Status/Tobac co Use Comment Facility Apr 23, 2024 10:00 AM VA-TOBACCO QUIT 5 TO < 15 YRS [place] [facility] [place] [facility] Apr 13, 2023 11:00 AM VA-TOBACCO FORMER USER [place] [facility] [place] [facility] Apr 13, 2023 11:00 AM VA-TOBACCO QUIT 5 TO < 15 YRS [place] [facility] [place] [facility] Apr 14, 2022 01:30 PM VA-TOBACCO [facility]ER [facility] Apr 14, 2022 01:30 PM VA-TOBACCO QUIT 5 TO < 15 YRS [facility] [place] [facility] Apr 10, 2021 10:00 AM VA-TOBACCO FORMER USER [facility] [place] [facility] Apr 10, 2021 10:00 AM VA-TOBACCO QUIT 5 TO < 15 YRS [facility] [place] [facility] Apr 02, 2020 10:30 AM VA-TOBACCO FORMER USER [place] [facility] [place] [facility] Apr 02, 2020 10:30 AM VA-TOBACCO QUIT 5 TO < 15 YRS [facility] [place] [facility] Sep 29, 2018 08:52 AM VA-TOBACCO FORMER USER [place] [facility] [place] [facility] Sep 29, 2018 08:52 AM VA-TOBACCO QUIT 15 YRS OR MORE [place] [facility] [place] [facility] December 21, 2017 12:27 PM QUIT TOBACCO USE 1-7 YEARS AGO 5 or 6 years ago [place] [facility] [place] [facility] May 19, 2017 10:21 AM QUIT TOBACCO USE 1-7 YEARS AGO [place] [facility] [place] [facility] Aug 19, 2016 09:56 AM QUIT TOBACCO USE 1-7 YEARS AGO [place] [facility] [place] [facility] Feb 12, 2016 11:34 AM QUIT TOBACCO USE 1-7 YEARS AGO [place] [facility] [place] [facility] Aug 08, 2015 03:04 PM QUIT TOBACCO USE 1-7 YEARS AGO [place] [facility] [place] [facility] Aug 08, 2015 03:04 PM QUIT TOBACCO USE IN PAST YEAR pt states he stooped smmoking in the past yr. [place] [facility] [place] [facility] Advance Directives: All historical and current Section Date Range: From patient's date of to the date document was created. This section includes ALL of a patient's completed or amended [place] Advance and Rescinded Directives. The entries below indicate that a directive exists for the patient, but an actual copy is not included with this document. The data comes from all [place] facilities. Date Advance Directives Provider Source Jun 20, 2012 ADVANCE DIRECTIVE DISCUSSION MONIKA IZAGUIRRE [facility] Encounter Notes: All associated encounter notes This section contains the clinical notes associated to the Encounter. Date/Time Encounter Note(s) Provider Source Sep 12, 2024 01:00 PM OCCUPATIONAL THERAPY NOTE: LOCAL TITLE: OCCUPATIONAL THERAPY STANDARD TITLE: OCCUPATIONAL THERAPY NOTE DATE OF NOTE: SEP 12, 2024@13:00 ENTRY DATE: SEP 12, 2024@13:00:36 AUTHOR: PAM JEFFERSON COSIGNER: URGENCY: STATUS: COMPLETED Initial Evaluation date: Mar Progress Note Date: Treatment #: 15 Treatment time: 30 minutes Diagnosis: Pain in left Shoulder(ICD-10-CM M25.512) Provider: Irma DIAZ Treatment Precautions: Patient identified by full name and date of SUBJECTIVE: Pt reports that he slept in his bed the last 3 nights. He slept 8 or 9 hours. Pain level: 1/10 at rest OBJECTIVE: THERAPEUTIC EXERCISE: *UBE 2' forward, 2' backward 2.0 *pulleys into flexion w/ 10 second hold, 1x10 *wall slides into flexion, 1x10 *D1 extension w/ green band, 1x10 *D2 flexion w/ green band, 2x10 *horizontal abduction w/ green band, 2x10 Access Code: [email or web address] URL: [email or web address] Date: 08/28/2024 Prepared by: [facility] Exercises - Seated Shoulder Flexion AAROM [...] MINUTES: 15 MANUAL THERAPY: *mobilization to upper trap/infra/subscap, seated MINUTES: 9 THERAPEUTIC DYNAMIC ACTIVITIES: MINUTES: NEUROMUSCULAR EDUCATION: MINUTES: OTHER: MINUTES: MODALITIES: *MHP to L shoulder prior to tx MINUTES: 3 [] Contraindication screen completed prior to modality [] Skin intact pre/post SELF CARE/EDUCATION: MINUTES: Patient education was provided for all aspects of care during this clinical encounter. ASSESSMENT: pt reports he has resumed sleeping in his bed and wakes w/o pain after 8-9 hours. he continues to engage in his HEP religiously. some tightness and ttp noted throughout scapular musculature, though pt really only reports tightness w/ possible 2/10 pain at times. discuss leaving chart open x30 days. if he feels he needs to return for more visits he will call. also discuss possibly referred to PT for his R sided neck pain. pt will think about this. PLAN: leave chart open x30 days. pt will call if he feels he needs to schedule another appt. pt is in agreement w/ this POC. /glenis/ Pam Jefferson, MS OTR/Malini, CHT Occupational Therapist Signed: 09/13/2024 10:47 PAM JEFFERSON CN[facility]L [facility]
--- OUTSIDE RECORDS SUMMARY | 2024-11-11 14:57 | XMS_ITS | Encounter Summary ---
Author Name [facility] [place] Organization [place] Address [address] [place] [address] Care Team Providers Care Packer And Carry Out Name Role Phone LETICIA WALDEN Primary Care [...] PART B Apr 24, 2013 PART B [id number] KLEBER DYE RY PATIENT MEDICARE (WNR) MEDICARE () PART B Apr 24, 2013 PART B [id number] [facility] KLEBER DYE RY PATIENT MEDICARE (WNR) MEDICARE () PART B Apr 24, 2013 PART B [id number] KLEBER DYE RY PATIENT MEDICARE (WNR) MEDICARE () PART A November 23, 2011 PART A [id number] [id number] KLEBER DYE RY PATIENT MEDICARE (WNR) MEDICARE () PART A November 23, 2011 PART A [id number] [id number] KLEBER DYE RY PATIENT MEDICARE (WNR) MEDICARE () PART A November 23, 2011 PART A [id number] KLEBER DYE PATIENT [employer] [place] [employer] PLAN G PLAN G Apr 24, 2013 PLAN G [phone] [id number] KLEBER DYE PATIENT [employer] [place] [employer] PLAN G Apr 24, 2013 PLANG [id number] KLEBER DYE PATIENT [employer] [place] [employer] PL[employer] G PLANG Apr 24, 2013 PLANG [id number] KLEBER DYE PATIENT Selected Encounter This section includes the information on record at [place] for the Encounter. Date/Time Encounter Type Encounter Description Reason Provider Source Jun 26, 2024 10:30 AM THERAPEUTIC EXERCISES OCCUPATIONAL THERAPY ICD-10-CM M25.512 Pain in left shoulder TAO JEFFERSONE Greta IHE Encounter Template Text not used by [place] Assessments - Encounter Diagnoses This section includes the primary and secondary diagnoses documented for the Encounter. Date/Time Primary/Secondary Diagnosis Diagnosis Name Provider Source Jul 11, 2024 07:56 AM PRIMARY Pain in left shoulder RONNYPAM E [place] [facility] [place] [facility] Plan of Treatment: Future Appointments (+ 6 months) and Future Tests (+/- 45 days) The Plan of Treatment section includes future care activities for the patient from all [place] treatmentfacilities. This section includes future appointments and future orders which are active, pending or scheduled. Future Appointments This section includes appointments that were scheduled to occur 6 months from the date of the Encounter, up to a maximum of 20 appointments. The data comes from all [place] treatment facilities. Appointment Date/Time Appointment Type Appointme nt Facility Name Jul 03, 2024 10:30 AM AMBULATORY - REHAB MEDICIN E [facility] [place] [facility] Jul 10, 2024 10:30 AM AMBULATORY - REHAB MEDICIN E [facility] [place] [facility] Jul 12, 2024 10:30 AM AMBULATORY - MEDICINE [place] [facility] [place] [facility] Jul 24, 2024 10:00 AM AMBULATORY - REHAB MEDICIN E [facility] [place] [facility] Aug 09, 2024 10:00 AM AMBULATORY - MEDICINE [place] [facility] [place] [facility] Aug 10, 2024 10:00 AM AMBULATORY - REHAB MEDICIN E [facility] [place] [facility] Aug 14, 2024 11:00 AM AMBULATORY - MEDICINE [facility] [place] [facility] Aug 27, 2024 11:00 AM AMBULATORY - NONE [facility] [place] [facility] Aug 28, 2024 10:30 AM AMBULATORY - REHAB MEDICIN E [facility] [place] [facility] Sep 12, 2024 01:00 PM AMBULATORY - REHAB MEDICIN E [facility] [place] [facility] Oct 04, 2024 03:00 PM AMBULATORY - MEDICINE [facility] [place] [place] [facility] Oct 16, 2024 10:00 AM AMBULATORY - MEDICINE [facility] [place] [facility] December 12, 2024 11:30 AM AMBULATORY - MEDICINE [facility] [place] [facility] Dec 25, 2024 01:00 PM AMBULATORY - MEDICINE [facility] [place] [facility] Social History: Smoking Status (Most current) and Tobacco Use (All prior to encounter date) This section includes the most current, and the historical, smoking and tobacco- related health factors from the [place] facility where the Encounter took place. Current Smoking Status This section includes the most current smoking, or tobacco-related health factor, from the [place] facility where the Encounter took place. Date/Time Current Smoking Status Comment [facility] Apr 23, 2024 10:00 AM VA-TOBACCO QUIT 5 TO < 15 YRS [facility] Tobacco Use History This section includes a history of the smoking, or tobacco-related health factors, that were collected on or before the date of the Encounter. The data comes from the [place] facility where the Encounter took place. Date/Time Smoking Status/Tobac co Use Comment Facility Apr 23, 2024 10:00 AM VA-TOBACCO QUIT 5 TO < 15 YRS [facility] [place] [facility] Apr 13, 2023 11:00 AM VA-TOBACCO FORMER USER [facility] [place] [facility] Apr 13, 2023 11:00 AM VA-TOBACCO QUIT 5 TO < 15 YRS [facility] [place] [facility] Apr 14, 2022 01:30 PM VA-TOBACCO FORMER USER [facility] [place] [facility] Apr 14, 2022 01:30 PM VA-TOBACCO QUIT 5 TO < 15 YRS [facility] [place] [facility] Apr 10, 2021 10:00 AM VA-TOBACCO FORMER USER [facility] [place] [facility] Apr 10, 2021 10:00 AM VA-TOBACCO QUIT 5 TO < 15 YRS [facility] [place] [facility] Apr 02, 2020 10:30 AM VA-TOBACCO FORMER USER [facility] [place] [facility] Apr 02, 2020 10:30 AM VA-TOBACCO QUIT 5 TO < 15 YRS [facility] [place] [facility] Sep 29, 2018 08:52 AM VA-TOBACCO FORMER USER [facility] [place] [facility] Sep 29, 2018 08:52 AM VA-TOBACCO QUIT 15 YRS OR MORE [facility] [place] [facility] December 21, 2017 12:27 PM QUIT TOBACCO USE 1-7 YEARS AGO 5 or 6 years ago [place] [facility] [place] [facility] May 19, 2017 10:21 AM QUIT TOBACCO USE 1-7 YEARS AGO [facility] [place] [facility] Aug 19, 2016 09:56 AM QUIT TOBACCO USE 1-7 YEARS AGO [facility] [place] [facility] Feb 12, 2016 11:34 AM QUIT TOBACCO USE 1-7 YEARS AGO [facility] [place] [facility] Aug 08, 2015 03:04 PM QUIT TOBACCO USE 1-7 YEARS AGO [place] [facility] [place] [facility] Aug 08, 2015 03:04 PM QUIT TOBACCO USE IN PAST YEAR pt states he stooped smmoking in the past yr. [place] [facility] [place] [facility] Advance Directives: All historical and current Section Date Range: From patient's date of to the date document was created. This section includes ALL of a patient's completed or amended [place] Advance and Rescinded Directives. The entries below indicate that a directive exists for the patient, but an actual copy is not included with this document. The data comes from all [place] facilities. Date Advance Directives Provider Source Jun 20, 2012 ADVANCE DIRECTIVE DISCUSSION MONIKA IZAGUIRRE [facility] Radiology Reports: +/- 30 days of the [...] the Encounter. The data comes from all [place] treatment facilities. Date/Time Radiology Report Provider Source Jun 14, 2024 10:20 AM LDCT LUNG CANCER SCREENING: SANCHO DYE [id number] -[id number] M Exm Date: JUN 14, 2024@10:20 Req Phys: LETICIA WALDEN Loc: ZZCWM/NO/LCS ADMIN (Req'g Loc) Img Loc: NHM/CT Service: [place] [address] (Case [id number] COMPLETE) LDCT LUNG CANCER SCREENING (CT Detailed) CPT:86939 Reason for Study: LUNG CANCER SCREENING Clinical History: 53 TPY-Quit 2012 Prior chest imaging: CT scan the chest from May 25, 2022, May 07, 2021, April 29, 2020, April 18, 2019 and December 12, 2017. LCS LDCT on 06/15/2023: LR 1 Report Status: Verified Date Reported: JUN 14, 2024 Date Verified: JUN 14, 2024 Payroll And Benefits Assistant E-Sig:/ES/MIRTA NAVAS JR Report: Study: Lung cancer [...] reviewed. Secondary computer-aided detection with post-processing from [employer] is used. The lack of intravenous contrast [...] Primary Interpreting Staff: MIRTA NAVAS JR, Radiologist (Payroll And Benefits Assistant) /MIRTA CASIANO JR [facility] Encounter Notes: All associated encounter notes This section contains the clinical notes associated to the Encounter. Date/Time Encounter Note(s) Provider Source Jun 26, 2024 10:26 AM OCCUPATIONAL THERAPY NOTE: LOCAL TITLE: OCCUPATIONAL THERAPY STANDARD TITLE: OCCUPATIONAL THERAPY NOTE DATE OF NOTE: JUN 26, 2024@10:26 ENTRY DATE: JUN 26, 2024@10:26:57 AUTHOR: PAM JEFFERSON COSIGNER: URGENCY: STATUS: COMPLETED Initial Evaluation date: Mar Progress Note Date: Treatment #: 9 Treatment time: 30 minutes Diagnosis: Pain in left Shoulder(ICD-10-CM M25.512) Provider: Irma DIAZ Treatment Precautions: Patient identified by full name and date of SUBJECTIVE: Pt reports that his shoulder/scapular pain is still there, but better. Pain level: 3/10 at rest OBJECTIVE: THERAPEUTIC EXERCISE: *UBE 2' forward, 2' backward 2.0 *pulleys into flexion w/ 10 second hold, 1x10 *wall slides into flexion, 1x10 *shoulder rows w/ blue band, 1x10 *shoulder extensions w/ blue band, 1x10 *pec stretch in doorway, 30 seconds x2 ADDED: *shoulder IR w/ green band, 2x10 (issued green band) *shoulder ER w/ green band, 2x10 Access Code: [email or web address] URL: [email or web address] Date: 06/26/2024 Prepared by: [facility] Exercises - Seated Shoulder Flexion AAROM [...] MINUTES: 17 MANUAL THERAPY: *mobilization to upper trap/infra and medial border of the scap musculature, anterior shoulder musculature, seated MINUTES: 8 THERAPEUTIC DYNAMIC ACTIVITIES: MINUTES: NEUROMUSCULAR EDUCATION: MINUTES: OTHER: MINUTES: MODALITIES: *MHP to L shoulder prior to tx MINUTES: 3 [] Contraindication screen completed prior to modality [] Skin intact pre/post SELF CARE/EDUCATION: MINUTES: Patient education was provided for all aspects of care during this clinical encounter. ASSESSMENT: pt tolerated tx well this date. able to add additional RTC TE, which he was able to perform w/o discomfort. persistent issues w/ lying flat in a bed to sleep w/o waking w/ worsening pain so he just avoids it. discussed referral to PT for cervical traction, which he is in agreement w/. PLAN: continue w/ OT POC; modify tx as needed. will continue to progress HEP as tolerated over next two visits, then transition to PT for cervical traction. pt is in agreement w/ this POC. /glenis/ Pam Jefferson, MS OTR/Malini, CHT Occupational Therapist Signed: 06/26/2024 15:46 [facility]
--- OUTSIDE RECORDS SUMMARY | 2024-11-11 14:57 | XMS_ITS | Encounter Summary ---
Author Name [facility] [place] Address [address] [place] [address] Care Team Providers Care Health Education Teacher Name Role Phone LETICIA WALDEN Primary [...] PART B Apr 24, 2013 PART B [id number] KLEBER DYE RY PATIENT MEDICARE (WNR) MEDICARE () PART B Apr 24, 2013 PART [id number] [facility] KLEBER DYE RY PATIENT MEDICARE (WNR) MEDICARE () PART B Apr 24, 2013 PART B [id number] [phone] KLEBER DYE RY PATIENT MEDICARE (WNR) MEDICARE () PART A November 23, 2011 PART A [id number] KLEBER DYE RY PATIENT MEDICARE (WNR) MEDICARE () PART A November 23, 2011 PART A [id number] KLEBER DYE RY PATIENT MEDICARE (WNR) MEDICARE () PART A November 23, 2011 PART A [id number] KLEBER DYE PATIENT [employer] [place] [employer] PLAN G PLAN G Apr 24, 2013 PLAN G [id number] KLEBER DYE PATIENT [employer] [place] [employer] PLAN G Apr 24, 2013 PLANG [id number] KLEBER DYE PATIENT [employer] [place] [employer] PLAN G PLANG Apr 24, 2013 PLANG [id number] KLEBER DYE PATIENT Selected Encounter This section includes the information on record at [place] for the Encounter. Date/Time Encounter Type Encounter Description Reason Provider Source Jul 10, 2024 10:30 AM THERAPEUTIC EXERCISES OCCUPATIONAL THERAPY ICD-10-CM M25.512 Pain in left shoulder TAO JFEFERSONE Greta IHE Encounter Template Text not used by [place] Assessments - Encounter Diagnoses This section includes the primary and secondary diagnoses documented for the Encounter. Date/Time Primary/Secondary Diagnosis Diagnosis Name Provider Source Aug 04, 2024 10:32 AM PRIMARY Pain in left shoulder [facility]AM [facility] [place] [facility] Plan of Treatment: Future Appointments (+ 6 months) and Future Tests (+/- 45 days) The Plan of Treatment section includes future care activities for the patient from all [place] [facility]. This section includes future appointments and future orders which are active, pending or scheduled. Future Appointments This section includes appointments that were scheduled to occur 6 months from the date of the Encounter, up to a maximum of 20 appointments. The data comes from all [place] treatment facilities. Appointment Date/Time Appointment Type Appointme nt Facility Name Jul 12, 2024 10:30 AM AMBULATORY - MEDICINE [place] [facility] [place] [facility] Jul 24, 2024 10:00 AM AMBULATORY - REHAB MEDICIN E [facility] [place] [facility] Aug 09, 2024 10:00 AM AMBULATORY - MEDICINE [facility] [place] [facility] Aug 10, 2024 10:00 AM AMBULATORY - REHAB MEDICIN E [facility] [place] [facility] Aug 14, 2024 11:00 AM AMBULATORY - MEDICINE [facility] [place] [facility] Aug 27, 2024 11:00 AM AMBULATORY - NONE [facility] [place] [facility] Aug 28, 2024 10:30 AM AMBULATORY - REHAB MEDICIN E [facility] [place] [facility] Sep 12, 2024 01:00 PM AMBULATORY - REHAB MEDICIN E [facility] [place] [facility] Oct 04, 2024 03:00 PM AMBULATORY - MEDICINE [facility] [place] [facility] Oct 16, 2024 10:00 AM AMBULATORY - MEDICINE [facility] [place] [facility] December 12, 2024 11:30 AM AMBULATORY - MEDICINE [facility] [place] [facility] Dec 25, 2024 01:00 PM AMBULATORY - MEDICINE [facility] [place] [facility] Jan 01, 2025 09:00 AM AMBULATORY - MEDICINE [facility] [place] [facility] Social History: Smoking Status (Most current) [...] took place. Date/Time Current Smoking Status Comment [facility] Apr 23, 2024 10:00 AM VA-TOBACCO FORMER USER [facility] [place] [facility] Tobacco Use History This section includes a history of the smoking, or tobacco-related health factors, that were collected on or before the date of the Encounter. The data comes from the [place] facility where the Encounter took place. Date/Time Smoking Status/Tobac co Use Comment Facility Apr 23, 2024 10:00 AM VA-TOBACCO QUIT 5 TO < 15 YRS [facility] [place] [facility] Apr 13, 2023 11:00 AM VA-TOBACCO FORMER USER [facility] [place] [facility] Apr 13, 2023 11:00 AM VA-TOBACCO QUIT 5 TO < 15 YRS [facility] [place] [facility] Apr 14, 2022 01:30 PM VA-TOBACCO FORMER USER [facility] [place] [facility] Apr 14, 2022 01:30 PM VA-TOBACCO QUIT 5 TO < 15 YRS [facility] [place] [facility] Apr 10, 2021 10:00 AM VA-TOBACCO FORMER USER [facility] [place] [facility] Apr 10, 2021 10:00 AM VA-TOBACCO QUIT 5 TO < 15 YRS [facility] [place] [facility] Apr 02, 2020 10:30 AM VA-TOBACCO FORMER USER [facility] [place] [facility] Apr 02, 2020 10:30 AM VA-TOBACCO QUIT 5 TO < 15 YRS [facility] [place] [facility] Sep 29, 2018 08:52 AM VA-TOBACCO FORMER USER [facility] [place] [facility] Sep 29, 2018 08:52 AM VA-TOBACCO QUIT 15 YRS OR MORE [facility] [place] [facility] December 21, 2017 12:27 PM QUIT TOBACCO USE 1-7 YEARS AGO 5 or 6 years ago [facility] [place] [facility] May 19, 2017 10:21 AM QUIT TOBACCO USE 1-7 YEARS AGO [facility] [place] [facility] Aug 19, 2016 09:56 AM QUIT TOBACCO USE 1-7 YEARS AGO [facility] [place] [facility] Feb 12, 2016 11:34 AM QUIT TOBACCO USE 1-7 YEARS AGO [facility] [place] [facility] Aug 08, 2015 03:04 PM QUIT TOBACCO USE 1-7 YEARS AGO [facility] [place] [facility] Aug 08, 2015 03:04 PM QUIT TOBACCO USE IN PAST YEAR pt states he stooped smmoking in the past yr. [facility] [place] [facility] Advance Directives: All historical and current [...] 20, 2012 ADVANCE DIRECTIVE DISCUSSION MONIKA IZAGUIRRE [facility] Radiology Reports: +/- 30 days of the [...] 10:20 AM LDCT LUNG CANCER SCREENING: SANCHO YDE [id number] -[id number] M Exm Date: JUN 14, 2024@10:20 Req Phys: LETICIA WALDEN Pat Loc: ZZCWM/NO/LCS ADMIN (Req'g Loc) Img Loc: [facility]M/CT Service: [place] [address] (Case [id number] COMPLETE) LDCT LUNG CANCER SCREENING (CT Detailed) CPT:33025 Reason for Study: LUNG CANCER SCREENING Clinical History: 53 TPY-Quit 2012 Prior chest imaging: CT scan the chest from May 25, 2022, May 07, 2021, April 29, 2020, April 18, 2019 and December 12, 2017. LCS LDCT on 06/15/2023: LR 1 Report Status: Verified Date Reported: JUN 14, 2024 Date Verified: JUN 14, 2024 Business Objects Consultant E-Sig:/ES/MIRTA NAVAS JR Report: Study: Lung cancer [...] reviewed. Secondary computer-aided detection with post-processing from [employer] is used. The lack of intravenous contrast [...] Primary Interpreting Staff: MIRTA NAVAS JR, Radiologist (Business Objects Consultant) /MIRTA CASIANO JR [facility] Encounter Notes: All associated encounter notes This section contains the clinical notes associated to the Encounter. Date/Time Encounter Note(s) Provider Source Jul 10, 2024 09:44 AM OCCUPATIONAL THERAPY NOTE: LOCAL TITLE: OCCUPATIONAL THERAPY STANDARD TITLE: OCCUPATIONAL THERAPY NOTE DATE OF NOTE: JUL 10, 2024@09:44 ENTRY DATE: JUL 10, 2024@09:44:47 AUTHOR: PAM JEFFERSON COSIGNER: URGENCY: STATUS: COMPLETED Initial Evaluation date: Mar Progress Note Date: Treatment #: 11 Treatment time: 30 minutes Diagnosis: Pain in left Shoulder(ICD-10-CM M25.512) Provider: Irma DIAZ Treatment Precautions: Patient identified by full name and date of SUBJECTIVE: Pt reports that he slipped on ice and now has some increased pain in his posterior shoulder. Pain level: 4/10 at rest OBJECTIVE: THERAPEUTIC EXERCISE: *UBE 2' forward, 2' backward 2.0 *pulleys into flexion w/ 10 second hold, 1x10 *wall slides into flexion, 1x10 *shoulder IR w/ green band, 2x10 *shoulder ER w/ green band, 2x10 ADDED: *D1 extension w/ green band, 2x10 Access Code: [email or web address] URL: [email or web address] / Date: 07/10/2024 Prepared by: [facility] Exercises - Seated Shoulder Flexion AAROM [...] - 3 sets - 10 reps MINUTES: 16 MANUAL THERAPY: *mobilization to upper trap/infra and [...] tx well this date. he had a slip on ice in which he feels he strained his neck so is having a higher level of pain. despite this, he is able to engage in all TE w/o an increase in pain. added D1 extension as well. mobilization reveals ttp and some adhesions. pt reported feeling improved following tx. PLAN: continue w/ OT POC; modify tx as needed. every other week. pt is in agreement w/ this POC. /glenis/ Pam Jefferson, MS OTR/L, CHT Occupational Therapist Signed: 07/10/2024 15:47 PAM JEFFERSON [facility]
--- OUTSIDE RECORDS SUMMARY | 2024-11-11 14:57 | XMS_ITS ---
Author Name [place] Address [address] [place] [address] Care Team Providers Care Shirt Ironer Supervisor Name Role Phone LETICIA WALDEN Primary Care [...] PART B Apr 24, 2013 PART B [id number] [phone] [id number] KLEBER DYE RY PATIENT MEDICARE (WNR) MEDICARE () PART B Apr 24, 2013 PART B [id number] [id number] KLEBER DYE RY PATIENT MEDICARE (WNR) MEDICARE () PART B Apr 24, 2013 PART B [id number] KLEBER DYE RY PATIENT MEDICARE (WNR) MEDICARE () PART A November 23, 2011 PART A [id number] KLEBER DYE RY PATIENT MEDICARE (WNR) MEDICARE () PART A November 23, 2011 PART A [id number] [phone] [id number] KLEBER DYE RY PATIENT MEDICARE (WNR) MEDICARE () PART A November 23, 2011 PART A [id number] KLEBER DYE PATIENT [employer] [place] [employer] PLAN G PLAN G Apr 24, 2013 PLAN G [id number] KLEBER DYE PATIENT [employer] [place] [employer] PLAN G Apr 24, 2013 PLANG [id number] KLEBER DYE PATIENT [employer] [place] [employer] PLAN G PLANG Apr 24, 2013 PLANG [id number] KLEBER DYE PATIENT Selected Encounter This section includes the information on record at [place] for the Encounter. Date/Time Encounter Type Encounter Description Reason Provider Source Mar 16, 2024 10:30 AM MANUAL THERAPY 1/> [facility]WER PIPE ICD-10-CM M54.2 Cervicalgia MICHELLE TAVARES Greta Encounter Template Text not used by [place] Assessments - Encounter Diagnoses This section includes the primary and secondary diagnoses documented for the Encounter. Date/Time Primary/Secondary Diagnosis Diagnosis Name Provider Source Jun 15, 2024 08:38 AM PRIMARY CervicalMICHELLE Hand [place] [facility] [place] [facility] Plan of Treatment: Future Appointments (+ 6 months) and Future Tests (+/- 45 days) The Plan of Treatment section includes future care activities for the patient from all [facility]. This section includes future appointments and future orders which are active, pending or scheduled. Future Appointments This section includes appointments that were scheduled to occur 6 months from the date of the Encounter, up to a maximum of 20 appointments. The data comes from all [place] treatment facilities. Appointment Date/Time Appointment Type Appointme nt Facility Name Mar 20, 2024 09:30 AM AMBULATORY - MEDICINE [place] [facility] [place] [facility] Mar 23, 2024 10:30 AM AMBULATORY - MEDICINE [place] [facility] [place] [facility] Mar 29, 2024 11:30 AM AMBULATORY - MEDICINE [place] [facility] [place] [facility] Mar 30, 2024 09:00 AM AMBULATORY - MEDICINE [place] [facility] [place] [facility] Apr 03, 2024 11:30 AM AMBULATORY - MEDICINE [place] [facility] [place] [facility] Apr 03, 2024 12:15 PM AMBULATORY - MEDICINE [facility] [place] [facility] Apr 04, 2024 03:00 PM AMBULATORY - MEDICINE [facility] [place] [facility] Apr 06, 2024 10:30 AM AMBULATORY - REHAB MEDICIN E [facility] [place] [facility] Apr 11, 2024 09:30 AM AMBULATORY - MEDICINE [facility] [place] [facility] Apr 16, 2024 03:00 PM AMBULATORY - REHAB MEDICIN E [facility] [place] [facility] Apr 23, 2024 10:00 AM AMBULATORY - MEDICINE [facility] [place] [facility] Apr 24, 2024 10:00 AM AMBULATORY - REHAB MEDICIN E [facility] [place] [facility] Apr 27, 2024 10:15 AM AMBULATORY - MEDICINE [facility] [place] [facility] May 01, 2024 10:00 AM AMBULATORY - REHAB MEDICIN E [facility] [place] [facility] May 16, 2024 10:00 AM AMBULATORY - REHAB MEDICIN E [facility] [place] [facility] May 16, 2024 11:00 AM AMBULATORY - REHAB MEDICIN E [facility] [place] [facility] May 21, 2024 03:00 PM AMBULATORY - REHAB MEDICIN E [facility] [place] [facility] May 29, 2024 10:30 AM AMBULATORY - REHAB MEDICIN E [facility] [place] [facility] Jun 05, 2024 10:00 AM AMBULATORY - REHAB MEDICIN E [facility] [place] [facility] Jun 07, 2024 03:00 PM AMBULATORY - MEDICINE [place] [facility] [place] [facility] Social History: Smoking Status (Most current) and Tobacco Use (All prior to encounter date) This section includes the most current, and the historical, smoking and tobacco- related health factors from the [place] facility where the Encounter took place. Current Smoking Status This section includes the most current smoking, or tobacco-related health factor, from the [place] facility where the Encounter took place. Date/Time Current Smoking Status Ricardo bryson Apr 13, 2023 11:00 AM VA-TOBACCO FORMER USER [facility] Tobacco Use History This section includes a history of the smoking, or tobacco-related health factors, that were collected on or before the date of the Encounter. The data comes from the [place] facility where the Encounter took place. Date/Time Smoking Status/Tobac co Use Comment Facility Apr 13, 2023 11:00 AM VA-TOBACCO QUIT 5 TO < 15 YRS [facility] [place] [facility] Apr 14, 2022 01:30 PM VA-TOBACCO FORMER USER [facility] [place] [facility] Apr 14, 2022 01:30 PM VA-TOBACCO QUIT 5 TO < 15 YRS [facility] [place] [facility] Apr 10, 2021 10:00 AM VA-TOBACCO FORMER USER [facility] [place] [facility] Apr 10, 2021 10:00 AM VA-TOBACCO QUIT 5 TO < 15 YRS [facility] [place] [facility] Apr 02, 2020 10:30 AM VA-TOBACCO FORMER USER [place] [facility] [place] [facility] Apr 02, 2020 10:30 AM VA-TOBACCO QUIT 5 TO < 15 YRS [facility] [place] [facility] Sep 29, 2018 08:52 AM VA-TOBACCO FORMER USER [place] [facility] [place] [facility] Sep 29, 2018 08:52 AM VA-TOBACCO QUIT 15 YRS OR MORE [facility] [place] [facility] December 21, 2017 12:27 PM QUIT TOBACCO USE 1-7 YEARS AGO 5 or 6 years ago [facility] [place] [facility] May 19, 2017 10:21 AM QUIT TOBACCO USE 1-7 YEARS AGO [facility] [place] [facility] Aug 19, 2016 09:56 AM QUIT TOBACCO USE 1-7 YEARS AGO [facility] [place] [facility] Feb 12, 2016 11:34 AM QUIT TOBACCO USE 1-7 YEARS AGO [facility] [place] [facility] Aug 08, 2015 03:04 PM QUIT TOBACCO USE 1-7 YEARS AGO [facility] [place] [facility] Aug 08, 2015 03:04 PM QUIT TOBACCO USE IN PAST YEAR pt states he stooped smmoking in the past yr. [facility] [place] [facility] Advance Directives: All historical and current Section Date Range: From patient's date of to the date document was created. This section includes ALL of a patient's completed or amended [place] Advance and Rescinded Directives. The entries below indicate that a directive exists for the patient, but an actual copy is not included with this document. The data comes from all [place] facilities. Date Advance Directives Provider Source Jun 20, 2012 ADVANCE DIRECTIVE DISCUSSION MONIKA IZAGUIRRE [facility] Radiology Reports: +/- 30 days of the [...] the Encounter. The data comes from all [place] treatment facilities. Date/Time Radiology Report Provider Source Mar 09, 2024 09:52 AM SPINE CERVICAL, 4 OR 5 VIEWS: SANCHO DYE EDILBERTO [id number] -[id number] M Ex Date: MAR 09, 2024@09:52 Req Phys: BRYANNA MOORE Loc: CWM/NO/SICK CALL PA (Req'g Loc Img Loc: [facility]BUILDING 1 Service: [place] [address] (Case [id number] COMPLETE) SPINE CERVICAL, 4 OR 5 VIEWS (RAD Detailed) CPT:67849 Reason for Study: pain with radiating features to the left shoulder Clinical History: Report Status: Verified Date Reported: MAR 09, 2024 Date Verified: MAR 09, 2024 Feed Blender E-Sig:/ES/MIRTA NAVAS JR Report: Study: AP, lateral [...] Primary Interpreting Staff: MIRTA NAVAS JR, Radiologist (Feed Blender) /MIRTA CASIANO JR [facility] Encounter Notes: All associated encounter notes This section contains the clinical notes associated to the Encounter. Date/Time Encounter Note(s) Provider Source Mar 16, 2024 10:13 AM CHIROPRACTIC NOTE: LOCAL TITLE: CHIROPRACTOR PROGRESS NOTE STANDARD TITLE: CHIROPRACTIC NOTE DATE OF NOTE: MAR 16, 2024@10:13 ENTRY DATE: MAR 16, 2024@10:13:54 AUTHOR: MICHELLE TAVARES COSIGNER: URGENCY: STATUS: COMPLETED SANCHO DYE is a 77 WHITE MALE with prior history of COMBAT SERVICE INDICATED: Yes POS: PERIOD OF SERVICE - OTHER OR NONE SERVICE BRANCH: Service Connected Disabilities with % Eligibility: Active Problem Shoulder pain M25.519, Onset / 09/21/2023 LETICIA WALDEN Cerebral infarction I63.9, Onset 00 06/24/2023 LETICIA WADLEN Exposure to potentially hazardous s 10/13/2022 LETICIA WALDEN Benign Prostatic Hypertrophy withou 10/06/2021 LETICIA WALDEN Impaired fasting glucose R73.01, On 04/10/2021 LETICIA WALDEN Chronic dermatitis L30.9, Onset 06/24/2023 LETICIA WALDEN AF- Atrial Fibrillation (SCT [id number] 12/23/2017 LETICIA WALDEN Coronary artery disease I25.10, [...] R shoulder Takes anti-coagulants Patient presents to [place] [facility] with report of persistent pain in his neck and upper trapezius. He has been applying ice to area and feels some temporary relief. Vet states that the left interscapular area is the most painful. Patient states that he does experience relief for about a day after treatment. Extension of neck and raising his left [...] different bed. He just flew down to [place]. HX; During service natural falls down but [...] of cortisone which alleviated the sx. 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 Treatment: Corrective/Active Manual therapy, 12 min cervical seated with manual axial traction tried. CMT low force AT cervical Treatment carried out today and well tolerated. Manual traction exacerbated sx and was stopped. The prognosis, at this time, is fair [...] core stability, balance, and pain modulation. Visit 12 F/U 2 appts are scheduled . Patient may request spread of appt Mar 23 to a later date. Seek urgent care as needed. CMT: chiropractic manipulative therapy SMT: Spinal Manipulative Therapy F/D: Flexion Distraction MFR: Myofascial Release S-I: Sacroiliac MFTP: Myofascial Trigger Point NRS: Numeric Rating Scale N/T: Numbness/Tingling PIR: Post isometric relaxation Suicide Screen: C-SSRS Screening [place]-Suicide Severity Rating Scale (C-SSRS Screener) 1. Over the past month, have you wished you were or wished you could go to sleep and not wake up? No 2. Over the past month, have you had any actual thoughts of killing yourself? No 3. Over the past month, have you been thinking about how you might do this? Response not required due to responses to other questions. 4. Over the past month, have you had these thoughts and had some intention of acting on them? Response not required due to responses to other questions. 5. Over the past month, have you started to work out or worked out the details of how to kill yourself? Response not required due to responses to other questions. 6. If yes, at any time in the past month did you intend to carry out this plan? Response not required due to responses to other questions. 7. In your lifetime, have you ever done anything, started to do anything, or prepared to do anything to end your life (for example, collected pills, obtained a gun, gave away valuables, went to the roof but didn't jump)? No 8. If YES, was this within the past 3 months? Response not required due to responses to other questions. /glenis/ MICHELLE TAVARES D.C. CHIROPRACTOR Signed: 03/16/2024 10:55 MICHELLE TAVARES [facility]
--- OUTSIDE RECORDS SUMMARY | 2024-11-11 14:57 | XMS_ITS ---
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 Name Role Phone AARON WALDEN Primary Care [...] PART B Apr 24, 2013 PART B [id number] KLEBER DYE RY PATIENT MEDICARE (WNR) MEDICARE () PART B Apr 24, 2013 PART B [id number] [facility] KLEBER DYE RY PATIENT MEDICARE (WNR) MEDICARE () PART B Apr 24, 2013 PART B [id number] [phone] KLEBER DYE RY PATIENT MEDICARE (WNR) MEDICARE () PART A November 23, 2011 PART A [id number] KLEBER DYE RY PATIENT MEDICARE (WNR) MEDICARE () PART A November 23, 2011 PART A [id number] KLEBER DYE RY PATIENT MEDICARE (WNR) MEDICARE () PART A November 23, 2011 PART A [id number] KLEBER DYE PATIENT [employer] [place] [employer] PLAN G PLAN G Apr 24, 2013 PLAN G [id number] [phone] KLEBER DYE PATIENT [employer] [place] [employer] PLAN G Apr 24, 2013 PLANG [id number] KLEBER DYE PATIENT [employer] [place] [employer] PL[employer] G PLANG Apr 24, 2013 PLANG [id number] KLEBER DYE PATIENT Selected Encounter This section includes the information on record at [place] for the Encounter. Date/Time Encounter Type Encounter Description Reason Provider Source Mar 06, 2024 11:00 AM MANUAL THERAPY 1/> [facility] ICD-10-CM M77.11 Lateral epicondylitis , right elbow MACHON,PAM E IHE Encounter Template Text not used by [place] Assessments - Encounter Diagnoses This section includes the primary and secondary diagnoses documented for the Encounter. Date/Time Primary/Secondary Diagnosis Diagnosis Name Provider Source Mar 29, 2024 02:43 PM PRIMARY Lateral epicondylitis, right elbow MACHON,PAM E [facility] [place] [facility] Plan of Treatment: Future Appointments (+ 6 months) and Future Tests (+/- 45 days) The Plan of Treatment section includes future care activities for the patient from all [place] [facility]. This section includes future appointments and future orders which are active, pending or scheduled. Future Appointments This section includes appointments that were scheduled to occur 6 months from the date of the Encounter, up to a maximum of 20 appointments. The data comes from all [place] treatment facilities. Appointment Date/Time Appointment Type Appointme nt Facility Name Mar 09, 2024 10:30 AM AMBULATORY - MEDICINE [facility] [place] [facility] Mar 09, 2024 01:00 PM AMBULATORY - MEDICINE [facility] [place] [facility] Mar 13, 2024 10:30 AM AMBULATORY - REHAB MEDICIN E [facility] [place] [facility] Mar 14, 2024 02:30 PM AMBULATORY - REHAB MEDICIN E [facility] [place] [facility] Mar 16, 2024 10:30 AM AMBULATORY - MEDICINE [facility] [place] [facility] Mar 20, 2024 09:30 AM AMBULATORY - MEDICINE [facility] [place] [facility] Mar 23, 2024 10:30 AM AMBULATORY - MEDICINE [facility] [place] [facility] Mar 29, 2024 11:30 AM AMBULATORY - MEDICINE [facility] [place] [facility] Mar 30, 2024 09:00 AM AMBULATORY - MEDICINE [facility] [place] [facility] Apr 03, 2024 11:30 AM AMBULATORY - MEDICINE [facility] [place] [facility] Apr 03, 2024 12:15 PM AMBULATORY - MEDICINE [facility] [place] [facility] Apr 04, 2024 03:00 PM AMBULATORY - MEDICINE [facility] [place] [facility] Apr 06, 2024 10:30 AM AMBULATORY - REHAB MEDICIN E [facility] [place] [facility] Apr 11, 2024 09:30 AM AMBULATORY - MEDICINE [facility] [place] [facility] Apr 16, 2024 03:00 PM AMBULATORY - REHAB MEDICIN E [facility] [place] [facility] Apr 23, 2024 10:00 AM AMBULATORY - MEDICINE [facility] [place] [facility] Apr 24, 2024 10:00 AM AMBULATORY - REHAB MEDICIN E [facility] [place] [facility] Apr 27, 2024 10:15 AM AMBULATORY - MEDICINE [facility] [place] [facility] May 01, 2024 10:00 AM AMBULATORY - REHAB MEDICIN E [facility] [place] [facility] May 16, 2024 10:00 AM AMBULATORY - REHAB MEDICIN E [facility] [place] [facility] Vital Signs: All taken on the encounter date This section contains inpatient and outpatient Vital Signs collected on the date of the Encounter. Date/Time Temperature Pulse Blood Pressure Respiratory Rate SP02 Pain Height Weight Body Mass Index Source Mar 06, 2024 01:28 PM 97.8 77 148/84 20 96 8 [facility] [place] [facility] Social History: Smoking Status (Most [...] took place. Date/Time Current Smoking Status Comment [facility] Apr 13, 2023 11:00 AM VA-TOBACCO FORMER USER [facility] [place] [facility] Tobacco Use History This section includes a history of the smoking, or tobacco-related health factors, that were collected on or before the date of the Encounter. The data comes from the [place] facility where the Encounter took place. Date/Time Smoking Status/Tobac co Use Comment Facility Apr 13, 2023 11:00 AM VA-TOBACCO QUIT 5 TO < 15 YRS [facility] [place] [facility] Apr 14, 2022 01:30 PM VA-TOBACCO FORMER USER [facility] [place] [facility] Apr 14, 2022 01:30 PM VA-TOBACCO QUIT 5 TO < 15 YRS [facility] [place] [facility] Apr 10, 2021 10:00 AM VA-TOBACCO FORMER USER [facility] [place] [facility] Apr 10, 2021 10:00 AM VA-TOBACCO QUIT 5 TO < 15 YRS [facility] [place] [facility] Apr 02, 2020 10:30 AM VA-TOBACCO FORMER USER [facility] [place] [facility] Apr 02, 2020 10:30 AM VA-TOBACCO QUIT 5 TO < 15 YRS [facility] [place] [facility] Sep 29, 2018 08:52 AM VA-TOBACCO FORMER USER [facility] [place] [facility] Sep 29, 2018 08:52 AM VA-TOBACCO QUIT 15 YRS OR MORE [facility] [place] [facility] December 21, 2017 12:27 PM QUIT TOBACCO USE 1-7 YEARS AGO 5 or 6 years ago [facility] [place] [facility] May 19, 2017 10:21 AM QUIT TOBACCO USE 1-7 YEARS AGO [facility] [place] [facility] Aug 19, 2016 09:56 AM QUIT TOBACCO USE 1-7 YEARS AGO [facility] [place] [facility] Feb 12, 2016 11:34 AM QUIT TOBACCO USE 1-7 YEARS AGO [facility] [place] [facility] Aug 08, 2015 03:04 PM QUIT TOBACCO USE 1-7 YEARS AGO [facility] Aug 08, 2015 03:04 PM QUIT TOBACCO USE IN PAST YEAR pt states he stooped smmoking in the past yr. [facility] Advance Directives: All historical and current [...] 20, 2012 ADVANCE DIRECTIVE DISCUSSION MONIKA IZAGUIRRE [facility] Radiology Reports: +/- 30 [...] 4 OR 5 VIEWS: SANCHO DYE EDILBERTO [id number] -[phone] M Exm Date: MAR 09, 2024@09:52 Req Phys: BRYANNA MOORE Pat Loc: CWM/NO/SICK CALL PA (Req'g Loc Img Loc: [facility]/BUILDING 1 Service: [place] [address] (Case [id number] COMPLETE) SPINE CERVICAL, 4 OR 5 VIEWS (RAD Detailed) CPT:07955 Reason for Study: pain with radiating features to the left shoulder Clinical History: Report Status: Verified Date Reported: MAR 09, 2024 Date Verified: MAR 09, 2024 Standards Analyst E-Sig:/ES/MIRTA NAVAS JR Report: Study: AP, lateral [...] Primary Interpreting Staff: MIRTA NAVAS JR, Radiologist (Standards Analyst) /MIRTA CASIANO JR [facility] Encounter Notes: All associated encounter notes This section contains the clinical notes associated to the Encounter. Date/Time Encounter Note(s) Provider Source Mar 06, 2024 10:55 AM OCCUPATIONAL MEDICINE CONSULT: [facility] TITLE: CONSULT REPORT/OCCUPATIONAL THERAPY STANDARD TITLE: OCCUPATIONAL MEDICINE CONSULT DATE OF NOTE: MAR 06, 2024@10:55 ENTRY DATE: MAR 06, 2024@10:55:48 AUTHOR: PAM JEFFERSON COSIGNER: AARON WALDEN URGENCY: STATUS: COMPLETED Initial Evaluation date: Feb Progress Note Date: Treatment #: eval Treatment time: 40 minutes Diagnosis: Lateral Epicondylitis, right Elbow(ICD-10-CM M77.11) Provider: Irma DIAZ Treatment Precautions: anticoag Patient identified by full name and date of S: Mr. Dye is a 78 y/o 80% [place] male who was referred to OT for R dominant elbow pain. He was seen in the OT clinic on 03/06/2024. PMH: Active problems - Computerized Problem List is the source for the followin. Shoulder pain 2. Cerebral infarction 3. Exposure to potentially hazardous substance 4. Benign Prostatic Hypertrophy without Outflow Obstruction ([facility] [id number]) 5. Impaired fasting glucose 6. Chronic dermatitis 7. AF- Atrial Fibrillation ([facility] [id number]) 8. Coronary artery disease 9. Essential hypertension 10. Hypercholesterolemia 11. Gout 12. Gastro-esophageal reflux disease 13. History of colonic polyp 14. Erectile dysfunction EMMA: pt reports that his L shoulder blade is killing him. he thought he was here was for that. he reports that he developed R elbow pain around December or so. He thinks it may be d/t his shoulder exercises w/ the [employer]. he also has been scooping of ice cream which he thinks may be contributing to the increase in pain. Imaging: none of the elbow Pain Level: 1/10 at rest, increasing 5/10 at worst Pain Location: mobile wad Aggravating Factors: exercises, scooping ice cream, gripping Alleviating Factors: rest O: Pt is R hand dominant. 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 [place], -. He enjoys fishing. Clinical Presentation: no edema nor erythema AROM of elbow is WNL Palpation: ttp and tightness throughout mobile wad Special Tests: Cozen's: (-) R Maudsley's: (+) R Resisted Pronation: (-) R Resisted Supination: (-) R Senior Data Analyst Strength Per Dynamometer: measured in pounds per pressure (norms: age) [R] [L] 1. 64# (norm:80#) 45# (norm:70#) 2. 63# 42# 3. 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 Tx: *US 1.4 w/cm2 100% 3 MHz, sound head over common extensor tendon/mobile wad 7' mobilization/FDM over common extensor tendon/mobile wad x10' (did not perform IASTM d/t on blood thinners) *issued pt counterforce brace from [employer]; pt able to don/doff I'ly. understands to wear during activities that may exacerbate pain. *pt was having L shoulder pain and only managing w/ Tylenol. ASSESSMENT: Sancho is a 78 y/o male who presents to the OT clinic w/ s/s of R dominant lateral epicondylitis as evidenced by pt report, clinical presentation and positive provocative testing. His primary concern today was his L shoulder, however, discussed that he was referred for his R elbow. He understands this. He tolerated tx for R lat epi well and was issued a counterforce brace for wear during activities that may exacerbate pain. Will issue stretches at next visit. PLAN: Plan to see 1x/week for 4-6 weeks for modalities (ionto, US, ice, heat), ther-ex, mobilization/manual therapy as indicated, and patient education. Patient is in agreement with this POC. LTG's: 1. pain <1-2/10 at all times 2. pt will report 50% improvement since initiating tx STG's: 1. compliant w/ HEP and counterforce brace wear 2. trial modalities (US, ionto) for pain/symptom management 3. patient will report decreased pain in R elbow to <5/10 at worst The practitioner's co-signature on this note signifies agreement with plan of care and clinical diagnosis code. /glenis/ Pam Jefferson MS OTR/Malini, CHT Occupational Therapist Signed: 03/06/2024 12:01 /glenis/ Aaron Walden MD Staff Physician Cosigned: 03/06/2024 13:07 PAM JEFFERSON [facility]
--- OUTSIDE RECORDS SUMMARY | 2024-11-11 14:58 | XMS_ITS | Encounter Summary ---
Author Name [facility] [place] Organization [facility] [place] Address [address] [place] [address] Care Team Providers Care Jewelry Technician Name Role Phone LETICIA WALDEN Primary Care [...] PART B Apr 24, 2013 PART B [id number] [phone] [place] DYE RY PATIENT MEDICARE (WNR) MEDICARE () PART B Apr 24, [id number] [facility] KLE[place] DYE RY PATIENT MEDICARE (WNR) MEDICARE () PART B Apr 24, 2013 PART B [id number] [place] RY PATIENT MEDICARE (WNR) MEDICARE () PART A November 23, 2011 PART A [id number] [id number] KLEBER DYE RY PATIENT MEDICARE (WNR) MEDICARE () PART A November 23, 2011 PART A [id number] K[place] DYE RY PATIENT MEDICARE (WNR) MEDICARE () PART A November 23, 2011 PART A [id number] KLEBER DYE PATIENT [employer] PLAN G PLAN G Apr 24, 2013 PLAN G [id number] KLEBER DYE PATIENT [employer] PLAN G Apr 24, 2013 PLANG [id number] KLEBER DYE PATIENT [employer] PL[employer] G PLANG Apr 24, 2013 PLANG [id number] KLEBER DYE PATIENT Selected Encounter This section includes the information on record at [place] for the Encounter. Date/Time Encounter Type Encounter Description Reason Provider Source Mar 06, 2024 02:30 PM OFFICE O/P EST LOW 20 MIN PRIMARY CARE/MEDICINE ICD-10-CM M54.2 Cervicalgia BRYANNA MOORE [facility] Encounter Template Text not used by [place] Assessments - Encounter Diagnoses This section includes the primary and secondary diagnoses documented for the Encounter. Date/Time Primary/Secondary Diagnosis Diagnosis Name Provider Source Mar 29, 2024 02:43 PM PRIMARY Cervicalgia BRYANNA MOORE [facility] [place] [facility] Mar 29, 2024 02:43 PM SECONDARY Other muscle sp[facility] [place] [facility] Plan of Treatment: Future Appointments (+ 6 [...] 09, 2024 10:30 AM AMBULATORY - MEDICINE [facility] [place] [facility] Mar 09, 2024 01:00 PM AMBULATORY - MEDICINE [facility] [place] [facility] Mar 13, 2024 10:30 AM AMBULATORY - REHAB MEDICIN E [facility] [place] [facility] Mar 14, 2024 02:30 PM AMBULATORY - REHAB MEDICIN E [facility] [place] [facility] Mar 16, 2024 10:30 AM AMBULATORY - MEDICINE [facility] [place] [facility] Mar 20, 2024 09:30 AM AMBULATORY - MEDICINE [facility] [place] [facility] Mar 23, 2024 10:30 AM AMBULATORY - MEDICINE [facility] [place] [facility] Mar 29, 2024 11:30 AM AMBULATORY - MEDICINE [facility] [place] [facility] Mar 30, 2024 09:00 AM AMBULATORY - MEDICINE [facility] [place] [facility] Apr 03, 2024 11:30 AM AMBULATORY - MEDICINE [facility] [place] [facility] Apr 03, 2024 12:15 PM AMBULATORY - MEDICINE [facility] [place] [facility] Apr 04, 2024 03:00 PM AMBULATORY - MEDICINE [facility] [place] [facility] Apr 06, 2024 10:30 AM AMBULATORY - REHAB MEDICIN E [facility] [place] [facility] Apr 11, 2024 09:30 AM AMBULATORY - MEDICINE [facility] [place] [facility] Apr 16, 2024 03:00 PM AMBULATORY - REHAB MEDICIN E [facility] [place] [facility] Apr 23, 2024 10:00 AM AMBULATORY - MEDICINE [facility] [place] [facility] Apr 24, 2024 10:00 AM AMBULATORY - REHAB MEDICIN E [facility] [place] [facility] Apr 27, 2024 10:15 AM AMBULATORY - MEDICINE [facility] [place] [facility] May 01, 2024 10:00 AM AMBULATORY - REHAB MEDICIN E [facility] [place] [facility] May 16, 2024 10:00 AM AMBULATORY - REHAB MEDICIN E [facility] [place] [facility] Vital Signs: All taken on the encounter date This section contains inpatient and outpatient Vital Signs collected on the date of the Encounter. Date/Time Temperature Pulse Blood Pressure Respiratory Rate SP02 Pain Height Weight Body Mass Index Source Mar 06, 2024 01:28 PM 97.8 77 148/84 20 96 8 [facility] [place] [facility] Social History: Smoking Status (Most current) and [...] Current Smoking Status Comment Ivan almonte Apr 13, 2023 11:00 AM VA-TOBACCO FORMER USER [place] [facility] [place] [facility] Tobacco Use History This section includes a history of the smoking, or tobacco-related health factors, that were collected on or before the date of the Encounter. The data comes from the [place] facility where the Encounter took place. Date/Time Smoking Status/Tobac co Use Comment Facility Apr 13, 2023 11:00 AM VA-TOBACCO QUIT 5 TO < 15 YRS [facility] [place] [facility] Apr 14, 2022 01:30 PM VA-TOBACCO FORMER USER [facility] [place] [facility] Apr 14, 2022 01:30 PM VA-TOBACCO QUIT 5 TO < 15 YRS [facility] [place] [facility] Apr 10, 2021 10:00 AM VA-TOBACCO FORMER USER [facility] [place] [facility] Apr 10, 2021 10:00 AM VA-TOBACCO QUIT 5 TO < 15 YRS [facility] [place] [facility] Apr 02, 2020 10:30 AM VA-TOBACCO FORMER USER [facility] [place] [facility] Apr 02, 2020 10:30 AM VA-TOBACCO QUIT 5 TO < 15 YRS [facility] [place] [facility] Sep 29, 2018 08:52 AM VA-TOBACCO FORMER USER [facility] [place] [facility] Sep 29, 2018 08:52 AM VA-TOBACCO QUIT 15 YRS OR MORE [facility] [place] [facility] December 21, 2017 12:27 PM QUIT TOBACCO USE 1-7 YEARS AGO 5 or 6 years ago [facility] [place] [facility] May 19, 2017 10:21 AM QUIT TOBACCO USE 1-7 YEARS AGO [facility] [place] [facility] Aug 19, 2016 09:56 AM QUIT TOBACCO USE 1-7 YEARS AGO [facility] [place] [facility] Feb 12, 2016 11:34 AM QUIT TOBACCO USE 1-7 YEARS AGO [facility] Aug 08, 2015 03:04 PM QUIT TOBACCO USE 1-7 YEARS AGO [facility] Aug 08, 2015 03:04 PM QUIT TOBACCO USE IN PAST YEAR pt states he stooped smmoking in the past yr. [facility] Advance Directives: All historical and current Section [...] 2012 ADVANCE DIRECTIVE DISCUSSION [place]IKA [place]UIRRE [facility] [place] Reports: +/- 30 days of the [...] comes from all [place] treatment facilities. Date/Time Radiology Report Provider Source Mar 09, 2024 09:52 AM SPINE CERVICAL, 4 OR 5 VIEWS: SANCHO DYE [id number] -[id number] M Exm Date: MAR 09, 2024@09:52 Req Phys: BRYANNA MOORE Pat Loc: CWM/NO/SICK CALL PA (Req'g Loc Img Loc: [facility]/BUILDING 1 Service: [place] [address] (Case [id number] COMPLETE) SPINE CERVICAL, 4 OR 5 VIEWS (RAD Detailed) CPT:10265 Reason for Study: pain with radiating features to the left shoulder Clinical History: Report Status: Verified Date Reported: MAR 09, 2024 Date Verified: MAR 09, 2024 Cream Hauler E-Sig:/ES/MIRTA NAVAS JR Report: Study: AP, lateral [...] Primary Interpreting Staff: MIRTA NAVAS JR, Radiologist (Cream Hauler) /MIRTA CASIANO JR [facility] Encounter Notes: All associated encounter notes This section contains the clinical notes associated to the Encounter. Date/Time Encounter Note(s) Provider Source Mar 09, 2024 10:22 AM ADDENDUM: LOCAL TITLE: Addendum STANDARD TITLE: ADDENDUM DATE OF NOTE: MAR 09, 2024@10:22:32 ENTRY DATE: MAR 09, 2024@10:22:33 AUTHOR: BRYANNA MOORE EXP COSIGNER: URGENCY: STATUS: COMPLETED Report: Study: AP, lateral and left and [...] in the cervical spine, as described above. /es/ BRYANNA ROLLINS MS,TRACY PHYSICIAN BEHAVIORAL INTERVENTION SPECIALIST Signed: 03/09/2024 10:22 Receipt Acknowledged By: 03/12/2024 14:54 /es/ MICHELLE TAVARES D.C. CHIROPRACTOR --- Original Document --- 03/06/24 CARSON NOTE: SICK CALL VISIT HPI: 78-year-old male with below noted past medical history presents today for complaints of increased left shoulder pain (03/03). He was being seen in OT for epicondylar pain and advised to be seen in sick call. He states that he thought he was seeing OT for his shoulder. He is seen by Dr. Tavares for dog day care attendant who referred him to OT. He has had increasing left posterior shoulder pain. He states that in the past he was given an injection which lasted 5 years . He has been using APAP 650 mg 4 times daily but does not find it very helpful. He does have cyclobenzaprine at home but does not use it due to its drowsy effect . There is no numbness or tingling of the upper extremity. No chest pain or shortness of breath. REVIEW OF SYSTEMS: A 12 point review of systems is negative except as noted in the HPI. Active Medical Problems: Active Problem Shoulder pain M25.519, Onset / 09/21/2023 LETICIA WALDEN Cerebral infarction I63.9, Onset 06/24/2023 LETICIA WALDEN Exposure to potentially hazardous s 10/13/2022 LETICIA WALDEN Benign Prostatic Hypertrophy withou 10/06/2021 LETICIA WALDEN Impaired fasting glucose R73.01, On 04/10/2021 LETICIA WALDEN Chronic dermatitis L30.9, Onset 06/24/2023 LETICIA WALDEN AF- Atrial Fibrillation (SCT [id number] 12/23/2017 LETICIA WALDEN Coronary artery disease I25.10, Ons 08/08/2015 LETICIA WALDEN Essential hypertension I10., Onset 08/08/2015 LETICIA WALDEN Hypercholesterolemia E78.0, Onset 0 08/08/2015 LETICIA WALDEN Gout M10.9, Onset 08/08/2015 LETICIA WALDEN Gastro-esophageal reflux disease K2 08/08/2015 LETICIA WALDEN History of colonic polyp Z86.010, O 08/08/2015 LETICIA WALDEN Erectile dysfunction F52.21, Onset 08/08/2015 LETICIA WALDEN Meds: Active Outpatient Medications (including Supplies): ACETAMINOPHEN 325MG TAB TAKE TWO TABLETS BY MOUTH FOUR ACTIVE TIMES DAILY NEEDED ALLOPURINOL 300MG TAB TAKE ONE TABLET BY MOUTH EVERY DAY ACTIVE FOR GOUT APIXABAN 5MG TAB TAKE ONE TABLET BY MOUTH TWICE DAILY ACTIVE (S) ATORVASTATIN CALCIUM 40MG TAB TAKE ONE TABLET BY MOUTH AT ACTIVE (S) BEDTIME FOR CHOLESTEROL CILOSTAZOL 50MG TAB TAKE ONE TABLET BY MOUTH TWICE DAILY ACTIVE -TAKE 30 MINUTES BEFORE MEALS OR TWO HOURS AFTER MEALS CLOPIDOGREL BISULFATE 75MG TAB TAKE ONE TABLET BY MOUTH ACTIVE EVERY DAY CYCLOBENZAPRINE HCL 10MG TAB TAKE ONE TABLET BY MOUTH ACTIVE THREE TIMES DAILY NEEDED LOSARTAN 100MG TAB TAKE ONE TABLET BY MOUTH ONCE DAILY FOR ACTIVE BLOOD PRESSURE/HEART METOPROLOL SUCCINATE 100MG SA TAB TAKE ONE TABLET BY MOUTH ACTIVE ONCE DAILY FOR BLOOD PRESSURE/HEART MULTIVITAMIN/MINERALS CAP/TAB TAKE 1 TABLET BY MOUTH EVERY ACTIVE DAY FOR VITAMIN SUPPLEMENTATION PANTOPRAZOLE NA 20MG EC TAB TAKE ONE TABLET BY MOUTH EVERY ACTIVE DAY TAMSULOSIN HCL 0.4MG CAP TAKE ONE CAPSULE BY MOUTH AT ACTIVE BEDTIME FOR ENLARGED PROSTATE Allergies: Patient has answered NKA Date Vital Measurement Qualifiers 03/06/2024 13:28 Temp F (C) 97.8 (36.6) Pulse 77 Respir 20 BP 148/84 Pain 8 POx (L/Min)(%) 96 At Rest FOCUSED EXAMINATION GEN: Well-developed male no acute distress seated with guarded movements of neck Vascular: 2+ RP bilaterally Neuro: Sensation grossly intact bilaterally MSK: C-spine with straightening notable with none tenderness along the spinous process/paraspinous processes bilaterally. To the left of the spine along the paravertebral muscles along into the trapezius superiorly is extremely hypertonic with palpable spasm. Maneuvering of the neck elicits increased pain of the muscle. There is 5/5 MMG bilateral upper extremities. Sensation is grossly intact. DATA: C-spine ordered MDM: No clinical evidence of acute neurovascular, neurosensory or gross functional deficit of the shoulder. C-spine is extremely taut and suspect guarding has created muscular tension. He is encouraged to use his Flexeril for nighttime use to assist in sleep as well as to allow muscle relaxation. He will be following up with chiropractic this week. Recommend mild home exercise program as directed with able to redemonstrate exercises to this provider to improve range of motion but also to relax musculature. reassured that the shoulder joint in and of itself is without problem and does not require cortisone injection at this time. [place] is agreeable to plan of care and able to verbalize such. RTC as needed. ASSESSMENT/PLAN Cervicalgia Other Muscle Spasm as above able to verbalize understanding of plan of care and agrees. >> MEDICATIONS Reviewed and reconciled with /glenis/ BRYANNA ROLLINS MS,PARadhaC PHYSICIAN BEHAVIORAL INTERVENTION SPECIALIST Signed: 03/06/2024 14:44 BRYANNA MOORE [facility] [place] [facility] Mar 06, 2024 01:52 PM PHYSICIAN BEHAVIORAL INTERVENTION SPECIALIST NOTE: LOCAL TITLE: CARSON NOTE STANDARD TITLE: PHYSICIAN BEHAVIORAL INTERVENTION SPECIALIST NOTE DATE OF NOTE: MAR 06, 2024@13:52 ENTRY DATE: MAR 06, 2024@13:52:36 AUTHOR: BRYANNA MOORE EXP COSIGNER: URGENCY: STATUS: COMPLETED CARSON NOTE Has ADDENDA SICK CALL VISIT HPI: 78-year-old male with below noted past medical history presents today for complaints of increased left shoulder pain (8). He was being seen in OT for epicondylar pain and advised to be seen in sick call. He states that he thought he was seeing OT for his shoulder. He is seen by Dr. Tavares for dog day care attendant who referred him to OT. He has had increasing left posterior shoulder pain. He states that in the past he was given an injection which lasted 5 years . He has been using APAP 650 mg 4 times daily but does not find it very helpful. He does have cyclobenzaprine at home but does not use it due to its drowsy effect . There is no numbness or tingling of the upper extremity. No chest pain or shortness of breath. REVIEW OF SYSTEMS: A 12 point review of systems is negative except as noted in the HPI. Active Medical Problems: Active Problem Shoulder pain M25.519, Onset / 09/21/2023 LETICIA WALDEN Cerebral infarction I63.9, Onset 06/24/2023 LETICIA WALDEN Exposure to potentially hazardous s 10/13/2022 LETICIA WALDEN Benign Prostatic Hypertrophy withou 10/06/2021 LETICIA WALDEN Impaired fasting glucose R73.01, On 04/10/2021 LETICIA WALDEN Chronic dermatitis L30.9, Onset 06/24/2023 LETICIA WALDEN AF- Atrial Fibrillation (SCT [id number] 12/23/2017 LETICIA WALDEN Coronary artery disease I25.10, Ons 08/08/2015 LETICIA WALDEN Essential hypertension I10., Onset 08/08/2015 LETICIA WALDEN Hypercholesterolemia E78.0, Onset 0 08/08/2015 LETICIA WALDEN Gout M10.9, Onset 08/08/2015 LETICIA WALDEN Gastro-esophageal reflux disease K2 08/08/2015 LETICIA WALDEN History of colonic polyp Z86.010, O 08/08/2015 LETICIA WALDEN Erectile dysfunction F52.21, Onset 08/08/2015 LETICIA WALDEN Meds: Active Outpatient Medications (including Supplies): ACETAMINOPHEN 325MG TAB TAKE TWO TABLETS BY MOUTH FOUR ACTIVE TIMES DAILY NEEDED ALLOPURINOL 300MG TAB TAKE ONE TABLET BY MOUTH EVERY DAY ACTIVE FOR GOUT APIXABAN 5MG TAB TAKE ONE TABLET BY MOUTH TWICE DAILY ACTIVE (S) ATORVASTATIN CALCIUM 40MG TAB TAKE ONE TABLET BY MOUTH AT ACTIVE (S) BEDTIME FOR CHOLESTEROL CILOSTAZOL 50MG TAB TAKE ONE TABLET BY MOUTH TWICE DAILY ACTIVE -TAKE 30 MINUTES BEFORE MEALS OR TWO HOURS AFTER MEALS CLOPIDOGREL BISULFATE 75MG TAB TAKE ONE TABLET BY MOUTH ACTIVE EVERY DAY CYCLOBENZAPRINE HCL 10MG TAB TAKE ONE TABLET BY MOUTH ACTIVE THREE TIMES DAILY NEEDED LOSARTAN 100MG TAB TAKE ONE TABLET BY MOUTH ONCE DAILY FOR ACTIVE BLOOD PRESSURE/HEART METOPROLOL SUCCINATE 100MG SA TAB TAKE ONE TABLET BY MOUTH ACTIVE ONCE DAILY FOR BLOOD PRESSURE/HEART MULTIVITAMIN/MINERALS CAP/TAB TAKE 1 TABLET BY MOUTH EVERY ACTIVE DAY FOR VITAMIN SUPPLEMENTATION PANTOPRAZOLE NA 20MG EC TAB TAKE ONE TABLET BY MOUTH EVERY ACTIVE DAY TAMSULOSIN HCL 0.4MG CAP TAKE ONE CAPSULE BY MOUTH AT ACTIVE BEDTIME FOR ENLARGED PROSTATE Allergies: Patient has answered NKA Date Vital Measurement Qualifiers 03/06/2024 13:28 Temp F (C) 97.8 (36.6) Pulse 77 Respir 20 BP 148/84 Pain 8 POx (L/Min)(%) 96 At Rest FOCUSED EXAMINATION GEN: Well-developed male no acute distress seated with guarded movements of neck Vascular: 2+ RP bilaterally Neuro: Sensation grossly intact bilaterally MSK: C-spine with straightening notable with none tenderness along the spinous process/paraspinous processes bilaterally. To the left of the spine along the paravertebral muscles along into the trapezius superiorly is extremely hypertonic with palpable spasm. Maneuvering of the neck elicits increased pain of the muscle. There is 5/5 MMG bilateral upper extremities. Sensation is grossly intact. DATA: C-spine ordered MDM: No clinical evidence of acute neurovascular, neurosensory or gross functional deficit of the shoulder. C-spine is extremely taut and suspect guarding has created muscular tension. He is encouraged to use his Flexeril for nighttime use to assist in sleep as well as to allow muscle relaxation. He will be following up with chiropractic this week. Recommend mild home exercise program as directed with able to redemonstrate exercises to this provider to improve range of motion but also to relax musculature. [place] reassured that the shoulder joint in and of itself is without problem and does not require cortisone injection at this time. [place] is agreeable to plan of care and able to verbalize such. RTC as needed. ASSESSMENT/PLAN Cervicalgia Other Muscle Spasm as above able to verbalize understanding of plan of care and agrees. >> MEDICATIONS Reviewed and reconciled with [place] /glenis/ BRYANNA ROLLINS MS,PARadhaC PHYSICIAN BEHAVIORAL INTERVENTION SPECIALIST Signed: 03/06/2024 14:44 03/09/2024 ADDENDUM STATUS: COMPLETED Report: Study: AP, lateral and left and [...] in the cervical spine, as described above. /glenis/ BRYANNA ROLLINS MS,TRACY PHYSICIAN BEHAVIORAL INTERVENTION SPECIALIST Signed: 03/09/2024 10:22 Receipt Acknowledged By: * AWAITING SIGNATURE * MICHELLE TAVARES KEVYN JONAH [facility]
--- OUTSIDE RECORDS SUMMARY | 2024-11-11 14:58 | XMS_ITS ---
Author Name [place] Address [address] [place] [address] Care Team Providers Care Wheel Presser Name Role Phone LETICIA WALDEN Primary Care [...] PART B Apr 24, 2013 PART B [id number] KLEBER DYE R[place] PATIENT MEDICARE (WNR) MEDICARE () PART B Apr 24, 2013 PART B [id number] [facility]8 K[place] R[place] PATIENT MEDICARE (WNR) MEDICARE () PART B Apr 24, 2013 PART B [id number] [place] R[place] PATIENT MEDICARE (WNR) MEDICARE () PART A November 23, 2011 PART A [id number] KLE[place] DYE R[place] PATIENT MEDICARE (WNR) MEDICARE () PART A November 23, 2011 PART A [id number] KLE[place] D[place] R[place] PATIENT MEDICARE (WNR) MEDICARE () PART A November 23, 2011 PART A [id number] KLEBER DYE PATIENT [employer] [place] [employer] PLAN G PLAN G Apr 24, 2013 PLAN G [id number] [phone] [id number] KLEBER DYE PATIENT [employer] [place] [employer] PLAN G Apr 24, 2013 PLANG [id number] KLEBER DYE PATIENT [employer] [place] [employer] PLAN G PLANG Apr 24, 2013 PLANG [id number] KLEBER DYE PATIENT Selected Encounter This section includes the information on record at [place] for the Encounter. Date/Time Encounter Type Encounter Description Reason Provider Source December 08, 2023 02:30 PM MANUAL THERAPY 1/> [facility] TRANSITION RN ICD-10-CM M54.2 Cervicalgia MICHELLE TAVARES Greta Encounter Template Text not used by [place] Assessments - Encounter Diagnoses This section includes the primary and secondary diagnoses documented for the Encounter. Date/Time Primary/Secondary Diagnosis Diagnosis Name Provider Source Jan 17, 2024 10:47 AM PRIMARY CervicalMICHELLE Hand [facility] [place] [facility] Plan of Treatment: Future Appointments (+ 6 months) and Future Tests (+/- 45 days) The Plan of Treatment section includes future care activities for the patient [facility] [place] [facility] This section includes future appointments and future orders which are active, pending or scheduled. Future Appointments This section includes appointments that were scheduled to occur 6 months from the date of the Encounter, up to a maximum of 20 appointments. The data comes from all [place] treatment facilities. Appointment Date/Time Appointment Type Appointme nt Facility Name Jan 12, 2024 11:30 AM AM[place]ORY [place] [place] [facility] Jan 30, 2024 11:00 AM [place] [facility] Feb 06, 2024 02:30 PM [place] [facility] Feb 23, 2024 09:30 AM [place] [facility] Feb 24, 2024 09:00 AM [place] [facility] Feb 24, 2024 11:30 AM AM[facility]UL[facility] [place] [facility] [place] [facility] [place] [facility] Mar 06, 2024 11:00 AM AMBULATORY - REHAB MEDICIN E [place] [facility] [place] [facility] Mar 06, 2024 01:00 PM AM[facility]ULATORY [facility]ICINE [place] [facility] [place] [facility] Mar 06, 2024 02:30 PM AM[facility]ULATORY [facility] MEDICINE [facility] [place] [facility] Mar 09, 2024 10:30 AM AM[facility]ULATORY [facility] MEDICINE [facility] [place] [facility] Mar 09, 2024 01:00 PM AM[facility]ULATORY [facility] MEDICINE [place] [facility] [place] [facility] Mar 13, 2024 10:30 AM AMBULATORY - REHAB MEDICIN E [place] [facility] [place] [facility] Mar 14, 2024 02:30 PM AMBULATORY - REHAB MEDICIN E [place] [facility] [place] [facility] Mar 16, 2024 10:30 AM AMBULATORY [facility] MEDICINE [facility] [place] [facility] Mar 20, 2024 09:30 AM AMBULATORY - MEDICINE [facility] [place] [facility] Mar 23, 2024 10:30 AM AMBULATORY - MEDICINE [facility] [place] [facility] Mar 29, 2024 11:30 AM AMBULATORY - MEDICINE [facility] [place] [facility] Mar 30, 2024 09:00 AM AMBULATORY - MEDICINE [facility] [place] [facility] Apr 03, 2024 11:30 AM AMBULATORY - MEDICINE [facility] [place] [facility] Apr 03, 2024 12:15 PM AMBULATORY - MEDICINE [facility] [place] [facility] Social History: Smoking Status (Most current) and Tobacco Use (All prior to encounter date) This section includes the most current, and the historical, smoking and tobacco- related health factors from the [place] facility where the Encounter took place. Current Smoking Status This section includes the most current smoking, or tobacco-related health factor, from the [place] facility where the Encounter took place. Date/Time Current Smoking Status Ricardo bryson Apr 13, 2023 11:00 AM VA-TOBACCO FOR[facility] [place] [facility] Tobacco Use History This section includes a history of the smoking, or tobacco-related health factors, that were collected on or before the date of the Encounter. The data comes from the [place] facility where the Encounter took place. Date/Time Smoking Status/Tobac co Use Comment Facility Apr 13, 2023 11:00 AM VA-TOBACCO QUIT 5 TO < 15 YRS [facility] [place] [facility] Apr 14, 2022 01:30 PM VA-TOBACCO FORMER USER [facility] [place] [facility] Apr 14, 2022 01:30 PM VA-TOBACCO QUIT 5 TO < 15 YRS [facility] [place] [facility] Apr 10, 2021 10:00 AM VA-TOBACCO FORMER USER [facility] [place] [facility] Apr 10, 2021 10:00 AM VA-TOBACCO QUIT 5 TO < 15 YRS [facility] [place] [facility] Apr 02, 2020 10:30 AM VA-TOBACCO FORMER USER [facility] [place] [facility] Apr 02, 2020 10:30 AM VA-TOBACCO QUIT 5 TO < 15 YRS [facility] [place] [facility] Sep 29, 2018 08:52 AM VA-TOBACCO FORMER USER [place] [facility] Sep 29, 2018 08:52 AM VA-TOBACCO QUIT 15 YRS OR MORE [facility] [place] [facility] December 21, 2017 12:27 PM QUIT TOBACCO USE 1-7 YEARS AGO 5 or 6 years ago [facility] [place] [facility] May 19, 2017 10:21 AM QUIT TOBACCO USE 1-7 YEARS AGO [facility] [place] [facility] Aug 19, 2016 09:56 AM QUIT TOBACCO USE 1-7 YEARS AGO [facility] [place] [facility] Feb 12, 2016 11:34 AM QUIT TOBACCO USE 1-7 YEARS AGO [facility] [place] [facility] Aug 08, 2015 03:04 PM QUIT TOBACCO USE 1-7 YEARS AGO [facility] [place] [facility] Aug 08, 2015 03:04 PM QUIT TOBACCO USE IN PAST YEAR pt states he stooped smmoking in the past yr. [place] [facility] [place] [facility] Advance Directives: All historical and current Section Date Range: From patient's date of to the date document was created. This section includes ALL of a patient's completed or amended VA Advance and Rescinded Directives. The entries below indicate that a directive exists for the patient, but an actual copy is not included with this document. The data comes from all [place] facilities. Date Advance Directives Provider Source Jun 20, 2012 ADVANCE DIRECTIVE DISCUSSION MONIKA IZAGUIRRE [facility] Encounter Notes: All associated encounter notes This section contains the clinical notes associated to the Encounter. Date/Time Encounter Note(s) Provider Source December 08, 2023 02:27 PM CHIROPRACTIC NOTE: LOCAL TITLE: CHIROPRACTOR PROGRESS NOTE STANDARD TITLE: CHIROPRACTIC NOTE DATE OF NOTE: DECEMBER 08, 2023@14:27 ENTRY DATE: DECEMBER 08, 2023@14:27:38 AUTHOR: MICHELLE TAVARES COSIGNER: URGENCY: STATUS: COMPLETED [...] 06/24/2023 LETICIA WALDEN AF- Atrial Fibrillation (SCT [id number] 12/23/2017 LETICIA WALDEN Coronary artery disease I25.10, [...] R shoulder Takes anti-coagulants Patient [place] [facility] with report that he feels pretty good. He C/O intermittent right sided neck pain with R rotation. Vet states that it is less intense pain. He completed course of OT and reports much progress in his shoulder. He rates the pain on the NPRS [...] different bed. He just flew down to [place]. HX; During service natural falls down but [...] of cortisone which alleviated the sx. Prior caregiver services home: yes for R shoulder and neck Activities: [...] bowl/bladder problems, saddle anesthesia Initial EXAM NPRS Active LUMBAR ROM largely WNL limited and [...] Supine gluteal stretching as per palpation Objectives 12/08/23: Tenderness C/sp L>R, left interscap,upper trapezius, and R C/sp. Restrictions cervical Treatment: Corrective/Active Manual therapy, 10 min cervical, prone CMT low force AT cervical Treatment carried out today and well tolerated with relief expressed. The prognosis, at this time, is fair to good. Plan: Followed by OT ; FU 2 weeks Short term goals include improvement in excess 25% on regional disability questionnaire and/or NRS over the first 3-4 treatment visits. It was explained to the patient that resolution of soft tissue complaintsthrough conservative management requires compliance with at home recommendations and avoidance of aggravating factors. Self-Care Recommendations: Apply ice pack over a thin cloth to neck for 10 minutes. ~Patient encouraged to engage in activities such [...] core stability, balance, and pain modulation. Visit 8 F/U 4 weekly Seek urgent care as needed. CMT: chiropractic manipulative therapy SMT: Spinal Manipulative Therapy F/D: Flexion Distraction MFR: Myofascial Release S-I: Sacroiliac MFTP: Myofascial Trigger Point NRS: Numeric Rating Scale N/T: Numbness/Tingling PIR: Post isometric relaxation /es/ MICHELLE TAVARES D.C. CHIROPRACTOR Signed: 12/09/2023 16:02 MICHELLE TAVARES [facility]
--- OUTSIDE RECORDS SUMMARY | 2024-11-11 14:58 | XMS_ITS ---
Author Name [place] Address [address] [place] [address] Care Team Providers Care Blueprint Reproducer Name Role Phone LETICIA WALDEN Primary Care [...] PART B Apr 24, 2013 PART B [id number] KLE[place] D[place] R[place] PATIENT MEDICARE (WNR) MEDICARE () PART B Apr 24, 2013 PART B [id number] [facility]8 [phone] [id number] K[place] D[place] R[place] PATIENT MEDICARE (WNR) MEDICARE () PART B Apr 24, 2013 PART B [id number] K[place] R[place] PATIENT MEDICARE (WNR) MEDICARE () PART A November 23, 2011 PART A [id number] [place] R[place] PATIENT MEDICARE (WNR) MEDICARE () PART A November 23, 2011 PART A [id number] [phone] [id number] K[place] D[place] R[place] PATIENT MEDICARE (WNR) MEDICARE () PART A November 23, 2011 PART A [id number] KLEBER DYE PATIENT [employer] [place] [employer] PLAN G PLAN G Apr 24, 2013 PLAN G [id number] KLBE[place] DYE PATIENT [employer] [place] [employer] PLAN G Apr 24, 2013 PLANG [id number] KLEBER DYE PATIENT [employer] [place] [employer] [employer] PLAN G PLANG Apr 24, 2013 PLANG [id number] KLEBER DYE PATIENT Selected Encounter This section includes the information on record at [place] for the Encounter. Date/Time Encounter Type Encounter Description Reason Provider Source Apr 11, 2024 09:30 AM MANUAL THERAPY 1/> [facility]OCIATE ICD-10-CM M54.2 Cervicalgia MICHELLE TAVARES Greta Encounter Template Text not used by [place] Assessments - Encounter Diagnoses This section includes the primary and secondary diagnoses documented for the Encounter. Date/Time Primary/Secondary Diagnosis Diagnosis Name Provider Source Apr 29, 2024 07:34 AM PRIMARY CervicalMICHELLE Hand [facility] Plan of Treatment: Future Appointments (+ 6 months) and Future Tests (+/- 45 days) The Plan of Treatment section includes future care activities for the patient from [facility] [place] [facility]. This section includes future appointments and future orders which are active, pending or scheduled. Future Appointments This section includes appointments that were scheduled to occur 6 months from the date of the Encounter, up to a maximum of 20 appointments. The data comes from all [place] treatment facilities. Appointment Date/Time Appointment Type Appointme nt Facility Name Apr 16, 2024 03:00 PM AMBULATORY - REHAB MEDICIN E [place] [place] [facility] Apr 23, 2024 10:00 AM AMBULATORY - MEDICINE [facility] [place] [facility] Apr 24, 2024 10:00 AM AMBULATORY - REHAB MEDICIN E [place] [facility] Apr 27, 2024 10:15 AM AMBULATORY - MEDICINE [facility] [place] [facility] May 01, 2024 10:00 AM AMBULATORY - REHAB MEDICIN E [place] [facility] May 16, 2024 10:00 AM AMBULAT[facility] - [facility] [place] [facility] May 16, 2024 11:00 AM AMBULATORY - RE[facility]AB MEDICIN E [facility] [place] [facility] May 21, 2024 03:00 PM AMBULATORY - REHAB MEDICIN E [place] [facility] [place] [facility] May 29, 2024 10:30 AM AMBULATORY - REHAB MEDICIN E [facility] [place] [facility] Jun 05, 2024 10:00 AM AMBULATORY - REHAB MEDICIN E [facility] [place] [facility] Jun 07, 2024 03:00 PM [facility]INE [facility] [place] [facility] Jun 12, 2024 10:00 AM AMBULATORY - REHAB MEDICIN E [facility] [place] [facility] Jun 14, 2024 10:30 AM AMBULATORY - NONE [facility] [place] [facility] Jun 15, 2024 02:00 PM AMBULATORY - MEDICINE [facility] [place] [facility] Jun 26, 2024 10:30 AM AMBULATORY - REHAB MEDICIN E [facility] [place] [facility] Jun 26, 2024 01:00 PM AMBULATORY - MEDICINE [facility] [place] [facility] Jul 03, 2024 10:30 AM AMBULATORY - REHAB MEDICIN E [facility] [place] [facility] Jul 10, 2024 10:30 AM AMBULATORY - REHAB MEDICIN E [facility] [place] [facility] Jul 12, 2024 10:30 AM AMBULATORY - MEDICINE [facility] [place] [facility] Jul 24, 2024 10:00 AM AMBULATORY - REHAB MEDICIN E [facility] [place] [facility] Lab Results: +/- 30 days of the [...] 2024 09:58 AM [facility] [place] [facility] LIVER FUNCTION SERUM Specimen Type: SERUM No comment entered. Ordering Provider: LETICIA WALDEN Report Released Date/Time: Apr 14, 2024 05:40 PM Reporting Lab: [facility] [address] [facility] [address] Performing Lab: [address] [address] PROTEIN,TOTAL 6.8 g/dL 6.0-8.3 ALBUMIN 3.8 g/dL 3.5-5.0 ALKALINE PHOSPHATASE 69 U/L 40-150 AST 17 U/L 5-34 ALT 27 U/L BILIRUBIN, TOTAL 0.6 mg/dL 0.2-1.2 Apr 19, 2024 09:58 AM [facility] BASIC METABOLIC PANEL (fasting) SERUM Specime n Type: SERUM No comment entered. Ordering Provider: LETICIA WALDEN Report Released Date/Time: Apr 14, 2024 05:40 PM Reporting Lab: [address] [address] Performing Lab: [address] [address] UREA NITROGEN 17 mg/dL 7-25 GLUCOSE 103 mg/dL H 65-100 SODIUM 139 mmol/L 135-145 POTASSIUM 4.2 mmol/L 3.5-5.0 CHLORIDE 107 mmol/L 100-110 CO2 25 meq/L 20-30 CREATININE, Serum 1.05 mg/dL 0.50-1.40 eGFR(CKD-EPI 2020) 73 mL/min >60 Apr 19, 2024 09:58 AM [facility] LIPID PANEL FASTING SERUM Specimen Type: SERU M No comment entered. Ordering Provider: LETICIA WALDEN Report Released Date/Time: Apr 14, 2024 05:40 PM Reporting Lab: [address] [address] Performing Lab: [address] [address] CHOLESTEROL 120 mg/dL TRIGLYCERIDE 98 mg/dL 0-150 LDL calculated 63 mg/dL 0-129 CHOL/HDL 3.2 HDL CHOLESTEROL 37 mg/dL L 40-60 Apr 19, 2024 09:58 AM [facility] TSH SERUM Specimen Type: SERUM No comment entered. Ordering Provider: LETICIA WALDEN Report Released Date/Time: Apr 14, 2024 05:40 PM Reporting Lab: [facility] [address] [facility] [address] Performing Lab: [address] [address] TSH 2.19 u[IU]/mL 0.35-5.00 Apr 19, 2024 09:58 AM [facility] URIC ACID SERUM Specimen Type: SERUM No comment entered. Ordering Provider: LETICIA WALDEN Report Released Date/Time: Apr 14, 2024 05:40 PM Reporting Lab: [facility] [address] [facility] [address] Performing Lab: [address] [address] URIC ACID 3.1 mg/dL L 3.5-7.2 Apr 19, 2024 09:58 AM [facility] CBC AND DIFF (AUTO) BLOOD Specimen Type: BLOO D No comment entered. Ordering Provider: LETICIA WALDEN Report Released Date/Time: Apr 14, 2024 05:40 PM Reporting Lab: [address] [address] Performing Lab: [address] [address] WBC 6.75 10*3/uL 4.50-11.00 RBC 3.99 10*6/uL [...] 10*3/uL 0.00-0.00 Apr 19, 2024 09:58 AM [facility] URINALYSIS CLEAN CATCH URINE Specimen Type: U RINE Comment: If Glucose = >500 and Ketones are positive, please alert the Physician. Ordering Provider: LETICIA WALDEN Report Released Date/Time: Apr 14, 2024 05:40 PM Reporting Lab: [address] [address] Performing Lab: [address] [address] UA COLOR Light-Yellow Yellow UA APPEARANCE Clear [...] Current Smoking Status Comment Facil ity Apr 13, 2023 11:00 AM VA-TOBACCO FORMER USER [place] [facility] [place] [facility] Tobacco Use History This section includes a history of the smoking, or tobacco-related health factors, that were collected on or before the date of the Encounter. The data comes from the [place] facility where the Encounter took place. Date/Time Smoking Status/Tobac co Use Comment [facility] Apr 13, 2023 11:00 AM VA-TOBACCO QUIT 5 TO < 15 YRS [facility] [place] [facility] Apr 14, 2022 01:30 PM VA-TOBACCO FORMER USER [facility] [place] [facility] Apr 14, 2022 01:30 PM VA-TOBACCO QUIT 5 TO < 15 YRS [facility] [place] [facility] Apr 10, 2021 10:00 AM VA-TOBACCO FORMER USER [facility] [place] [facility] Apr 10, 2021 10:00 AM VA-TOBACCO QUIT 5 TO < 15 YRS [facility] [place] [facility] Apr 02, 2020 10:30 AM VA-TOBACCO FORMER USER [facility] [place] [facility] Apr 02, 2020 10:30 AM VA-TOBACCO QUIT 5 TO < 15 YRS [facility] [place] [facility] Sep 29, 2018 08:52 AM VA-TOBACCO FORMER USER [facility] [place] [facility] Sep 29, 2018 08:52 AM VA-TOBACCO QUIT 15 YRS OR MORE [facility] [place] [facility] December 21, 2017 12:27 PM QUIT TOBACCO USE 1-7 YEARS AGO 5 or 6 years ago [facility] [place] [facility] May 19, 2017 10:21 AM QUIT TOBACCO USE 1-7 YEARS AGO [facility] [place] [facility] Aug 19, 2016 09:56 AM QUIT TOBACCO USE 1-7 YEARS AGO [facility] [place] [facility] Feb 12, 2016 11:34 AM QUIT TOBACCO USE 1-7 YEARS AGO [facility] [place] [facility] Aug 08, 2015 03:04 PM QUIT TOBACCO USE 1-7 YEARS AGO [facility] [place] [facility] Aug 08, 2015 03:04 PM QUIT TOBACCO USE IN PAST YEAR pt states he stooped smmoking in the past yr. [facility] Advance Directives: All historical and [...] 20, 2012 ADVANCE DIRECTIVE DISCUSSION MONIKA IZAGUIRRE [facility] Encounter Notes: All associated encounter notes This section contains the clinical notes associated to the Encounter. Date/Time Encounter Note(s) Provider Source Apr 11, 2024 09:38 AM CHIROPRACTIC NOTE: LOCAL TITLE: CHIROPRACTOR PROGRESS NOTE STANDARD TITLE: CHIROPRACTIC NOTE DATE OF NOTE: APR 11, 2024@09:38 ENTRY DATE: APR 11, 2024@09:38:35 AUTHOR: MICHELLE TAVARES EXP COSIGNER: URGENCY: STATUS: [...] 06/24/2023 LETICIA WALDEN AF- Atrial Fibrillation (SCT [id number] 12/23/2017 LETICIA WALDEN Coronary artery disease I25.10, [...] to [place] Chi[facility] clinic with report that he feels some improvement in his neck. He saw Pam in OT and he states that he feels improvement and was able to lift his left arm higher this morning in the shower. He reports that he continues to take [...] different bed. He just flew down to [place]. HX; During service natural falls down but nothing that he can state a specific; Around thanksgiving he had a mild stroke a blood clot in his left eye. C/O pain in Same shoulder but different sx. He was not able to lift his arm to put on coat. It was about 5 years ago and he saw Pam in PT. He FU with injection of cortisone which alleviated the sx. 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 Treatment: Corrective/Active Manual therapy, 12 min cervical seated with manual axial traction . CMT low force AT cervical Treatment carried out today and well tolerated. Prognosis, at this time, is fair to good. Plan: followed by OT Short term goals include improvement in excess 25% on regional disability questionnaire and/or NRS over the first 3-4 treatment visits. It was explained to the patient that resolution of soft tissue complaintsthrough conservative management requires compliance with at home recommendations and avoidance of aggravating factors. Self-Care Recommendations: continue with gentle stretches and ice/heat to neck ~Patient encouraged to engage in [...] core stability, balance, and pain modulation. Visit 15 F/U NA Seek urgent care as needed. CMT: chiropractic manipulative therapy SMT: Spinal Manipulative Therapy F/D: Flexion Distraction MFR: Myofascial Release S-I: Sacroiliac MFTP: Myofascial Trigger Point NRS: Numeric Rating Scale N/T: Numbness/Tingling PIR: Post isometric relaxation /es/ MICHELLE TAVARES D.C. CHIROPRACTOR Signed: 04/11/2024 13:53 MICHELLE TAVARES [facility]
--- OUTSIDE RECORDS SUMMARY | 2024-11-11 14:58 | XMS_ITS ---
Author Name [facility] [place] [facility] [place] Address [address] [place] [address] Care Team Providers Care Technician Name Role Phone LETICIA WALDEN Primary [...] PART B Apr 24, 2013 PART B [id number] [phone] KLE[place] DYE R[place] PATIENT MEDICARE ([place]NR) MEDICARE () PART B Apr 24, 2013 PART B [id number] [id number] K[place] DYE RY PATIENT MEDICARE (WNR) MEDICARE () PART B Apr 24, 2013 PART B [id number] KLE[place] DYE RY PATIENT MEDICARE (WNR) MEDICARE () PART A November 23, 2011 PART A [id number] KLEBER DYE RY PATIENT MEDICARE (WNR) MEDICARE () PART A November 23, 2011 PART A [id number] KLEBER DYE RY PATIENT MEDICARE (WNR) MEDICARE () PART A November 23, 2011 PART A [id number] KLEBER DYE PATIENT [employer] PLAN G PLAN G Apr 24, 2013 PLAN G [id number] KLEBER DYE PATIENT [employer] PL[employer] G PLANG Apr 24, 2013 PLANG [id number] KLEBER DYE PATIENT [employer] PL[employer] G Apr 24, 2013 PLANG [id number] KLEBER DYE PATIENT Selected Encounter This section includes the information on record at [place] for the Encounter. Date/Time Encounter Type Encounter Description Reason Provider Source Apr 04, 2024 03:00 PM MANUAL THERAPY /> [facility] ANIMATOR ICD-10-CM M54.2 Cervicalgia MICHELLE TAVARES Greta Encounter Template Text not used by [place] Assessments - Encounter Diagnoses This section includes the primary and secondary diagnoses documented for the Encounter. Date/Time Primary/Secondary Diagnosis Diagnosis Name Provider Source Apr 21, 2024 08:29 AM PRIMARY CervicalMICHELLE Hand [facility] Plan of Treatment: Future Appointments (+ 6 months) and Future Tests (+/- 45 days) The Plan of Treatment section includes future care activities for the [facility] [place] [facility] This section includes future appointments and future orders which are active, pending or scheduled. Future Appointments This section includes appointments that were scheduled to occur 6 months from the date of the Encounter, up to a maximum of 20 appointments. The data comes from all [place] treatment facilities. Appointment Date/Time Appointment Type Appointme nt Facility Name Apr 06, 2024 10:30 AM AMBULATORY - [facility] [facility] [place] [facility] Apr 11, 2024 09:30 AM AM[facility]UL[facility]ORY - MEDICINE [facility] [place] [facility] Apr 16, 2024 03:00 PM AMBULATORY - [facility] [place] [facility] Apr 23, 2024 10:00 AM AMBULATORY - MEDICINE [facility] [place] [facility] Apr 24, 2024 10:00 AM [facility]UL[facility] [place] [facility] Apr 27, 2024 10:15 AM [facility] [place] [facility] May 01, 2024 10:00 AM [facility] [place] May 16, 2024 10:00 AM [facility] May 16, 2024 11:00 AM [facility]UL[facility] May 21, 2024 03:00 PM [facility] May 29, 2024 10:30 AM AMBULATORY - [...] AMBULATORY - NONE [facility] [place] Jun 15, 2024 02:00 PM [facility] [place] [facility] Jun 26, 2024 10:30 AM AMBULATORY - [facility]IN [facility] [place] [facility] Jun 26, 2024 01:00 PM [facility]INE [facility] [place] [facility] Jul 03, 2024 10:30 AM AMBULATORY - [facility]ICIN [facility] [place] [facility] Jul 10, 2024 10:30 AM AMBULATORY - [facility]ICIN [facility] [place] [facility] Lab Results: +/- 30 days of the encounter This section includes the Chemistry and Hematology Lab Results on record with [place] for the patient. Radiology Reports and Pathology Reports are provided separately, in subsequent sections. Lab Results This section contains the Chemistry/Hematology Results that were resulted 30 days before or 30 daysafter the date of the Encounter. Date/Time Source Result Type Result - Unit Interpretation Reference Range Specimen Type Comment Apr 19, 2024 09:58 AM [facility] [place] [facility] LIVER FUNCTION SERUM Specimen Type: SERUM No comment entered. Ordering Provider: LETICIA WALDEN Report Released Date/Time: Apr 14, 2024 05:40 PM Reporting Lab[facility] [address] [address] Performing Lab: [address] [address] PROTEIN,TOTAL 6.8 g/dL 6.0-8.3 ALBUMIN 3.8 g/dL 3.5-5.0 ALKALINE PHOSPHATASE 69 U/L 40-150 AST 17 U/L 5-34 ALT 27 U/L BILIRUBIN, TOTAL 0.6 mg/dL 0.2-1.2 Apr 19, 2024 09:58 AM [facility] TSH SERUM Specimen Type: SERUM No comment entered. Ordering Provider: LETICIA WALDEN Report Released Date/Time: Apr 14, 2024 05:40 PM Reporting Lab: [address] [address] Performing Lab: [facility] [address] TSH 2.19 u[IU]/mL 0.35-5.00 Apr 19, 2024 09:58 AM [facility] LIPID PANEL FASTING SERUM Specimen Type: SERU M No comment entered. Ordering Provider: LETICIA WALDEN Report Released Date/Time: Apr 14, 2024 05:40 PM Reporting Lab: [facility] [address] [address] Performing Lab: [facility] [address] [address] CHOLESTEROL 120 mg/dL TRIGLYCERIDE 98 mg/dL 0-150 LDL calculated 63 mg/dL 0-129 CHOL/HDL 3.2 HDL CHOLESTEROL 37 mg/dL L 40-60 Apr 19, 2024 09:58 AM [facility] URIC ACID SERUM Specimen Type: SERUM No comment entered. Ordering Provider: LETICIA WALDEN Report Released Date/Time: Apr 14, 2024 05:40 PM Reporting Lab: [facility] [address] [address] Performing Lab: [facility] [address] [address] URIC ACID 3.1 mg/dL L 3.5-7.2 Apr 19, 2024 09:58 AM [facility] BASIC METABOLIC PANEL (fasting) SERUM Specime n Type: SERUM No comment entered. Ordering Provider: LETICIA WALDEN Report Released Date/Time: Apr 14, 2024 05:40 PM Reporting Lab: [facility] [address] [address] Performing Lab: [address] [address] UREA NITROGEN 17 mg/dL 7-25 GLUCOSE 103 mg/dL H 65-100 SODIUM 139 mmol/L 135-145 POTASSIUM 4.2 mmol/L 3.5-5.0 CHLORIDE 107 mmol/L 100-110 CO2 25 meq/L 20-30 CREATININE, Serum 1.05 mg/dL 0.50-1.40 eGFR(CKD-EPI 2020) 73 mL/min >60 Apr 19, 2024 09:58 AM [facility] CBC AND DIFF (AUTO) BLOOD Specimen Type: BLOO D No comment entered. Ordering Provider: LETICIA WALDEN Report Released Date/Time: Apr 14, 2024 05:40 PM Reporting Lab: [address] [address] Performing Lab: [address] [address] WBC 6.75 10*3/uL 4.50-11.00 RBC 3.99 10*6/uL [...] 10*3/uL 0.00-0.00 Apr 19, 2024 09:58 AM [facility] URINALYSIS CLEAN CATCH URINE Specimen Type: U RINE Comment: If Glucose = >500 and Ketones are positive, please alert the Physician. Ordering Provider: LETIICA WALDEN Report Released Date/Time: Apr 14, 2024 05:40 PM Reporting Lab: [address] [address] Performing Lab: [address] [address] UA COLOR Light-Yellow Yellow UA APPEARANCE Clear [...] and tobacco- related health factors from the [place] facility where the Encounter took place. Current Smoking Status This section includes the most current smoking, or tobacco-related health factor, from the [place] facility where the Encounter took place. Date/Time Current Smoking Status Comment Facil ity Apr 13, 2023 11:00 AM VA-TOBACCO QUIT 5 TO < 15 YRS [facility] [place] [facility] Tobacco Use History This section includes a history of the smoking, or tobacco-related health factors, that were collected on or before the date of the Encounter. The data comes from the [place] facility where the Encounter took place. Date/Time Smoking Status/Tobac co Use Comment [facility] Apr 13, 2023 11:00 AM VA-TOBACCO QUIT 5 TO < 15 YRS [facility] [place] [facility] Apr 14, 2022 01:30 PM VA-TOBACCO FORMER USER [facility] [place] [facility] Apr 14, 2022 01:30 PM VA-TOBACCO QUIT 5 TO < 15 YRS [facility] [place] [facility] Apr 10, 2021 10:00 AM VA-TOBACCO FORMER USER [facility] [place] [facility] Apr 10, 2021 10:00 AM VA-TOBACCO QUIT 5 TO < 15 YRS [facility] [place] [facility] Apr 02, 2020 10:30 AM VA-TOBACCO FORMER USER [facility] [place] [facility] Apr 02, 2020 10:30 AM VA-TOBACCO QUIT 5 TO < 15 YRS [facility] [place] [facility] Sep 29, 2018 08:52 AM VA-TOBACCO FORMER USER [facility] [place] [facility] Sep 29, 2018 08:52 AM VA-TOBACCO QUIT 15 YRS OR MORE [facility] [place] [facility] December 21, 2017 12:27 PM QUIT TOBACCO USE 1-7 YEARS AGO 5 or 6 years ago [facility] [place] [facility] May 19, 2017 10:21 AM QUIT TOBACCO USE 1-7 YEARS AGO [facility] [place] [facility] Aug 19, 2016 09:56 AM QUIT TOBACCO USE 1-7 YEARS AGO [facility] [place] [facility] Feb 12, 2016 11:34 AM QUIT TOBACCO USE 1-7 YEARS AGO [facility] [place] [facility] Aug 08, 2015 03:04 PM QUIT TOBACCO USE 1-7 YEARS AGO [facility] [place] [facility] Aug 08, 2015 03:04 PM QUIT TOBACCO USE IN PAST YEAR pt states he stooped smmoking in the past yr. [facility] Advance Directives: All historical and current Section Date Range: From patient's date of to the date document was created. This section includes ALL of a patient's completed or amended [place] Advance and Rescinded Directives. The entries below indicate that a directive exists for the patient, but an actual copy is not included with this document. The data comes from all [place] facilities. Date Advance Directives Provider Source Jun 20, 2012 ADVANCE DIRECTIVE DISCUSSION MONIKA IZAGUIRRE [facility] Radiology Reports: +/- [...] the Encounter. The data comes from all [place] treatment facilities. Date/Time Radiology Report Provider Source Mar 09, 2024 09:52 AM SPINE CERVICAL, 4 OR 5 VIEWS: SANCHO DYE [id number] -[id number] M Exm Date: MAR 09, 2024@09:52 Req Phys: BRYANNA MOORE Pat Loc: CWM/NO/SICK CALL PA (Req'g Loc Img Loc: [facility] Service: Unknown [place] [address] (Case [id number] COMPLETE) SPINE CERVICAL, 4 OR 5 VIEWS (RAD Detailed) CPT:37080 Reason for Study: pain with radiating features to the left shoulder Clinical History: Report Status: Verified Date Reported: MAR 09, 2024 Date Verified: MAR 09, 2024 Biology Tutor E-Sig:/ES/MIRTA NAVAS JR Report: Study: AP, lateral [...] Primary Interpreting Staff: MIRTA NAVAS JR, Radiologist (Biology Tutor) /MIRTA CASIANO JR [facility] Encounter Notes: All associated encounter notes This section contains the clinical notes associated to the Encounter. Date/Time Encounter Note(s) Provider Source Apr 04, 2024 02:50 PM CHIROPRACTIC NOTE: LOCAL TITLE: CHIROPRACTOR PROGRESS NOTE STANDARD TITLE: CHIROPRACTIC NOTE DATE OF NOTE: APR 04, 2024@14:50 ENTRY DATE: APR 04, 2024@14:50:57 AUTHOR: MICHELLE TAVARES COSIGNER: URGENCY: STATUS: COMPLETED [...] 06/24/2023 LETICIA WALDEN AF- Atrial Fibrillation (SCT [id number] 12/23/2017 LETICIA WALDEN Coronary artery disease I25.10, Ons 08/08/2015 LETICIA WALDEN Essential hypertension I10., Onset 08/08/2015 LETICIA WALDEN Hypercholesterolemia E78.0, Onset 0 08/08/2015 LETICIA WALDEN Gout M10.9, Onset 08/08/2015 WALDEN,LETICIA D Gastro-esophageal reflux disease K2 08/08/2015 LETICIA WALDEN History of colonic polyp Z86.010, O 08/08/2015 LETICIA WALDEN Erectile dysfunction F52.21, Onset 08/08/2015 LETICIA WALDEN Past Surgeries: Surgery on R shoulder Takes anti-coagulants Patient [facility] [place] [facility] with report that he feels incr pain as the day progressed after being at [facility]. He felt pretty good after the last visit. He continues to apply ice and then heat to area and feels some temporary relief. Extension of neck and raising his left [...] cortisone which alleviated the sx. Prior healthcare specialist: yes for R shoulder and neck Activities: [...] pain Tenderness and hypertonicity C/sp,upper trapezius Objectives 04/04/24: Restrictions cervical Tight and tender left interscapular [...] core stability, balance, and pain modulation. Visit 14 F/U 1 appts before PT starts Seek urgent care as needed. CMT: chiropractic manipulative therapy SMT: Spinal Manipulative Therapy F/D: Flexion Distraction MFR: Myofascial Release S-I: Sacroiliac MFTP: Myofascial Trigger Point NRS: Numeric Rating Scale N/T: Numbness/Tingling PIR: Post isometric relaxation /es/ MICHELLE TAVARES D.C. CHIROPRACTOR Signed: 04/04/2024 15:28 MICHELLE TAVARES [facility]
--- OUTSIDE RECORDS SUMMARY | 2024-11-11 14:58 | XMS_ITS | Encounter Summary ---
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 Tender Name Role Phone LETICIA WALDEN [...] PART B Apr 24, 2013 PART B [id number] [phone] KLEBER DYE RY PATIENT MEDICARE (WNR) MEDICARE () PART B Apr 24, 2013 PART B [id number] KLEBER DYE RY PATIENT MEDICARE (WNR) MEDICARE () PART B Apr 24, 2013 PART B [id number] KLEBER DYE RY PATIENT MEDICARE (WNR) MEDICARE () PART A November 23, 2011 PART A [id number] KLEBER DYE RY PATIENT MEDICARE (WNR) MEDICARE () PART A November 23, 2011 PART A [id number] [id number] KLEBER DYE RY PATIENT MEDICARE (WNR) MEDICARE (M) PART A November 23, 2011 PART A [id number] KLEBER DYE PATIENT [employer] PLAN G PLAN G Apr 24, 2013 PLAN G [id number] KLEBER DYE PATIENT [employer] PL[employer] G PLANG Apr 24, 2013 PLANG [id number] KLEBER DYE PATIENT [employer] PL[employer] G Apr 24, 2013 PLANG [id number] KLEBER DYE PATIENT Selected Encounter This section includes the information on record at [place] for the Encounter. Date/Time Encounter Type Encounter Description Reason Provider Source May 16, 2024 11:00 AM HEARING AID REPAIR/MODIFYING AUDIOLOGY ICD-10-CM Z46.1 Encounter for fitting and adjustment of hearing aid LUAN NAVARRETE Greta Encounter Template Text not used by [place] Assessments - Encounter Diagnoses This section includes the primary and secondary diagnoses documented for the Encounter. Date/Time Primary/Secondary Diagnosis Diagnosis Name Provider Source May 16, 2024 11:35 AM PRIMARY Encounter for fitting and adjustment of hearing aid [facility] May 16, 2024 11:35 AM SECONDARY Sensorineural hearing loss, bilateral HEATHER MARTINEZ [facility] Plan of Treatment: Future Appointments (+ 6 months) and Future Tests (+/- 45 days) The Plan of Treatment section includes future care activities for the patient from all [place] treatmentfacilities. This section includes future appointments and future orders which are active, pending or scheduled. Future Appointments This section includes appointments that were scheduled to occur 6 months from the date of the Encounter, up to a maximum of 20 appointments. The data comes from all [place] treatment facilities. Appointment Date/Time Appointment Type Appointme nt Facility Name May 21, 2024 03:00 PM [facility] May 29, 2024 10:30 AM [place] [facility] [place] [facility] Jun 05, 2024 10:00 AM [facility] [place] [facility] Jun 07, 2024 03:00 PM [facility]INE [facility] [place] [facility] Jun 12, 2024 10:00 AM AMBULATORY - [facility] [place] [facility] Jun 14, 2024 10:30 AM AMBULATORY - NONE [facility] [place] [facility] Jun 15, 2024 02:00 PM AMBULATORY - MEDICINE [facility] [place] [facility] Jun 26, 2024 10:30 AM AMBULATORY - [facility] MEDIC[facility] [place] [facility] Jun 26, 2024 01:00 PM AMBULATORY - MEDICINE [facility] [place] [facility] Jul 03, 2024 10:30 AM AMBULATORY - RE[facility]AB MEDICIN E [facility] [place] [facility] Jul 10, 2024 10:30 AM AMBULATORY - [facility] MEDICIN [facility] [place] [facility] Jul 12, 2024 10:30 AM AM[facility]ULATORY - MEDICINE [facility] [place] [facility] Jul 24, 2024 10:00 AM AMBULATORY - REHAB MEDICIN E [facility] [place] [facility] Aug 09, 2024 10:00 AM AM[facility]ULATORY [facility] MEDICINE [facility] [place] [facility] Aug 10, 2024 10:00 AM AMBULATORY - RE[facility]AB MEDICIN [facility] [place] [facility] Aug 14, 2024 11:00 AM AMBULATORY [facility] MEDICINE [facility] [place] [facility] Aug 27, 2024 11:00 AM AMBULATORY - NONE [facility] [place] [facility] Aug 28, 2024 10:30 AM AMBULATORY - REHAB MEDICIN E [facility] [place] [facility] Sep 12, 2024 01:00 PM AMBULATORY - REHAB MEDICIN E [facility] [place] [facility] Oct 04, 2024 03:00 PM AMBULATORY - MEDICINE [facility] [place] [facility] Lab Results: +/- 30 days [...] Type Comment Apr 19, 2024 09:58 AM [facility] LIVER FUNCTION SERUM Specimen Type: SERUM No comment entered. Ordering Provider: LETICIA WALDEN Report Released Date/Time: Apr 14, 2024 05:40 PM [facility] [address] [address] Performing Lab: [facility] [address] [address] PROTEIN,TOTAL 6.8 g/dL 6.0-8.3 ALBUMIN 3.8 g/dL 3.5-5.0 ALKALINE PHOSPHATASE 69 U/L 40-150 AST 17 U/L 5-34 ALT 27 U/L BILIRUBIN, TOTAL 0.6 mg/dL 0.2-1.2 Apr 19, 2024 09:58 AM [facility] TSH SERUM Specimen Type: SERUM No comment entered. Ordering Provider: LETICIA WALDEN Report Released Date/Time: Apr 14, 2024 05:40 PM Reporting Lab: [facility] [address] [address] Performing Lab: [address] [address] TSH 2.19 u[IU]/mL 0.35-5.00 Apr 19, 2024 09:58 AM [facility] LIPID PANEL FASTING SERUM Specimen Type: SERU M No comment entered. Ordering Provider: LETICIA WALDEN Report Released Date/Time: Apr 14, 2024 05:40 PM Reporting Lab: [address] [address] Performing Lab: [address] [address] CHOLESTEROL 120 mg/dL TRIGLYCERIDE 98 mg/dL 0-150 LDL calculated 63 mg/dL 0-129 CHOL/HDL 3.2 HDL CHOLESTEROL 37 mg/dL L 40-60 Apr 19, 2024 09:58 AM [facility] URIC ACID SERUM Specimen Type: SERUM No comment entered. Ordering Provider: LETICIA WALDEN Report Released Date/Time: Apr 14, 2024 05:40 PM Reporting Lab: [address] [address] Performing Lab: [address] [address] URIC ACID 3.1 mg/dL L 3.5-7.2 Apr 19, 2024 09:58 AM [facility] BASIC METABOLIC PANEL (fasting) SERUM Specime n Type: SERUM No comment entered. Ordering Provider: LETICIA WALDEN Report Released Date/Time: Apr 14, 2024 05:40 PM Reporting Lab: [address] [address] Performing Lab: [address] [address] UREA NITROGEN 17 mg/dL 7-25 GLUCOSE 103 mg/dL H 65-100 SODIUM 139 mmol/L 135-145 POTASSIUM 4.2 mmol/L 3.5-5.0 CHLORIDE 107 mmol/L 100-110 CO2 25 meq/L 20-30 CREATININE, Serum 1.05 mg/dL 0.50-1.40 eGFR(CKD-EPI 2020) 73 mL/min >60 Apr 19, 2024 09:58 AM [facility] CBC AND DIFF (AUTO) BLOOD Specimen Type: BLOO D No comment entered. Ordering Provider: LETICIA WALDEN Report Released Date/Time: Apr 14, 2024 05:40 PM Reporting Lab: [address] [address] Performing Lab: [address] [address] WBC 6.75 10*3/uL 4.50-11.00 RBC 3.99 10*6/uL [...] 10*3/uL 0.00-0.00 Apr 19, 2024 09:58 AM [facility] URINALYSIS CLEAN CATCH URINE Specimen Type: U RINE Comment: If Glucose = >500 and Ketones are positive, please alert the Physician. Ordering Provider: LETICIA WALDEN Report Released Date/Time: Apr 14, 2024 05:40 PM Reporting Lab: [address] [address] Performing Lab: [address] [address] UA COLOR Light-Yellow Yellow UA APPEARANCE Clear [...] and tobacco- related health factors from the [place] facility where the Encounter took place. Current Smoking Status This section includes the most current smoking, or tobacco-related health factor, from the [place] facility where the Encounter took place. Date/Time Current Smoking Status Comment Facil it Apr 23, 2024 10:00 AM VA-TOBACCO QUIT 5 TO < 15 YRS [place] [facility] [place] [facility] Tobacco Use History This section includes a history of the smoking, or tobacco-related health factors, that were collected on or before the date of the Encounter. The data comes from the [place] facility where the Encounter took place. Date/Time Smoking Status/Tobac co Use Comment Facility Apr 23, 2024 10:00 AM VA-TOBACCO QUIT 5 TO < 15 YRS [facility] [place] [facility] Apr 13, 2023 11:00 AM VA-TOBACCO FORMER USER [facility] [place] [facility] Apr 13, 2023 11:00 AM VA-TOBACCO QUIT 5 TO < 15 YRS [facility] [place] [facility] Apr 14, 2022 01:30 PM VA-TOBACCO FORMER USER [facility] [place] [facility] Apr 14, 2022 01:30 PM VA-TOBACCO QUIT 5 TO < 15 YRS [facility] [place] [facility] Apr 10, 2021 10:00 AM VA-TOBACCO FORMER USER [facility] [place] [facility] Apr 10, 2021 10:00 AM VA-TOBACCO QUIT 5 TO < 15 YRS [facility] [place] [facility] Apr 02, 2020 10:30 AM VA-TOBACCO FORMER USER [facility] [place] [facility] Apr 02, 2020 10:30 AM VA-TOBACCO QUIT 5 TO < 15 YRS [facility] [place] [facility] Sep 29, 2018 08:52 AM VA-TOBACCO FORMER USER [facility] [place] [facility] Sep 29, 2018 08:52 AM VA-TOBACCO QUIT 15 YRS OR MORE [facility] [place] [facility] December 21, 2017 12:27 PM QUIT TOBACCO USE 1-7 YEARS AGO 5 or 6 years ago [facility] [place] [facility] May 19, 2017 10:21 AM QUIT TOBACCO USE 1-7 YEARS AGO [facility] [place] [facility] Aug 19, 2016 09:56 AM QUIT TOBACCO USE 1-7 YEARS AGO [facility] Feb 12, 2016 11:34 AM QUIT TOBACCO USE 1-7 YEARS AGO [facility] Aug 08, 2015 03:04 PM QUIT TOBACCO USE 1-7 YEARS AGO [facility] Aug 08, 2015 03:04 PM QUIT TOBACCO USE IN PAST YEAR pt states he stooped smmoking in the past yr. [facility] Advance Directives: All historical and current Section Date Range: From patient's date of to the date document was created. This section includes ALL of a patient's completed or amended [place] Advance and Rescinded Directives. The entries below indicate that a directive exists for the patient, but an actual copy is not included with this document. The data comes from all [place] facilities. Date Advance Directives Provider Source Jun 20, 2012 ADVANCE DIRECTIVE DISCUSSION [facility] [place] Reports: +/- 30 days of the [...] the Encounter. The data comes from all [place] treatment facilities. Date/Time Radiology Report Provider Source Jun 14, 2024 10:20 AM LDCT LUNG CANCER SCREENING: SANCHO DYE [id number] -[id number] M Exm Date: JUN 14, 2024@10:20 Req Phys: LETICIA WALDEN Loc: ZZCWM/NO/LCS ADMIN (Req'g Loc) Img Loc: NHM/CT Service: Unknown [facility] [place] [address] (Case [id number] COMPLETE) LDCT LUNG CANCER SCREENING (CT Detailed) CPT:45236 Reason for Study: LUNG CANCER SCREENING Clinical History: 53 TPY-Quit 2012 Prior chest imaging: CT scan the chest from May 25, 2022, May 07, 2021, April 29, 2020, April 18, 2019 and December 12, 2017. LCS LDCT on 06/15/2023: LR 1 Report Status: Verified Date Reported: JUN 14, 2024 Date Verified: JUN 14, 2024 Manager Documentation E-Sig:/ES/MIRTA Oropeza ELOISE SINGH Report: Study: Lung cancer screening CT of [...] reviewed. Secondary computer-aided detection with post-processing from [employer] is used. The lack of intravenous contrast [...] Interpreting Staff: MIRTA NAVAS JR, Radiologist (Manager Documentation) /EAMIRTA BENSON JR [facility] Encounter Notes: All associated encounter notes This section contains the clinical notes associated to the Encounter. Date/Time Encounter Note(s) Provider Source May 16, 2024 10:45 AM AUDIOLOGY NOTE: LOCAL TITLE: AUDIOLOGY [facility] [place] [facility] HEATER OPERATOR STANDARD TITLE: AUDIOLOGY NOTE DATE OF NOTE: MAY 16, 2024@10:45 ENTRY DATE: MAY 16, 2024@10:45:14 AUTHOR: GORDON MARTINEZ COSIGNER: LUAN NAVARRETE URGENCY: STATUS: COMPLETED May 16, 2024 History/Background: was seen for a hearing aid follow up, unaccompanied. The [place] presented today stating his right hearing aid is draining battery. He stated he replaces the battery and within 2 hours he gets the battery alert. He stated he has tried using new packs of batteries as well as letting the battery sit after removing the tape. Additionally, the [place] stated the power on chimes are much softer sounding than his back up hearing aids. Hearing aids: [employer] [facility] Serial Numbers: [id number] Battery size: 312 Date Issued: 07/13/2022 Hearing aid check: Both hearing aids were cleaned and checked. Initial inspection revealed left aid missing the brandon cover, sound check was positive for both devices(the placed new batteries yesterday). Replaced wax guards, domes and brandon covers. Biologic check was good. The would like to send the right hearing aid out for repair due to the battery draining, this will be done and it will be shipped directly to the via [facility]. Otoscopy: Clear canals. Plan: Follow up as needed. *After the [place] left, spoke with [facility] [employer] service inquiring previous issues with the devices. Howard stated both time the device had been replaced due to corrosion/moisture and debris noted both times. He is recommending the [place] increase how often he replaces the wax guards and brushes the microphones. As well, a Perfect Dry Lux will be ordered for the , he can place the hearing aids in the dryer daily with the battery doors left open. Voicemail was left for the [place] to relay the information. /glenis/ GORDON MARTINEZ Audiology Health Fiberglasser Signed: 05/16/2024 11:39 /es/ LUAN Landis CCC-A CHIEF, AUDIOLOGY/RAPIER INSERTION LOOM FIXER Cosigned: 05/16/2024 11:40 GORDON MARTINEZ [facility]
--- OUTSIDE RECORDS SUMMARY | 2024-11-11 14:58 | XMS_ITS ---
Author Name [facility] Organization [facility] Address [address] [place] [address] Care Team Providers Care Central Supply Technician Supervisor Name Role Phone AARON WALDEN Primary Care [...] PART B Apr 24, 2013 PART B [id number] KLEBER DYE RY PATIENT MEDICARE (WNR) MEDICARE () PART B Apr 24, 2013 PART B [id number] KLEBER DYE RY PATIENT MEDICARE (WNR) MEDICARE () PART B Apr 24, 2013 PART B [id number] KLEBER DYE RY PATIENT MEDICARE (WNR) MEDICARE () PART A November 23, 2011 PART A [id number] KLEBER DYE RY PATIENT MEDICARE (WNR) MEDICARE () PART A November 23, 2011 PART A [id number] [phone] [id number] KLEBER DYE RY PATIENT MEDICARE (WNR) MEDICARE () PART A November 23, 2011 PART A [id number] KLEBER DYE PATIENT [employer] [place] [employer] PLAN G PLAN G Apr 24, 2013 PLAN G [id number] [phone] KLEBER DYE PATIENT [employer] [place] [place] [employer] PLAN G PLANG Apr 24, 2013 PLANG [id number] KLEBER DYE PATIENT [employer] [place] [place] [employer] PLAN G Apr 24, 2013 PLANG [id number] KLEBER DYE PATIENT Selected Encounter This section includes the information on record at [place] for the Encounter. Date/Time Encounter Type Encounter Description Reason Provider Source Apr 06, 2024 10:30 AM MANUAL THERAPY 1/> [facility] ICD-10-CM M25.512 Pain in left shoulder TAO JEFFERSONE E IHE Encounter Template Text not used by [place] Assessments - Encounter Diagnoses This section includes the primary and secondary diagnoses documented for the Encounter. Date/Time Primary/Secondary Diagnosis Diagnosis Name Provider Source Apr 25, 2024 09:11 AM PRIMARY Pain in left shoulder TAO JEFFERSONE E [facility] [place] [facility] Plan of Treatment: Future Appointments (+ [...] Appointment Type Appointme nt Facility Name Apr 11, 2024 09:30 AM AMBULATORY - MEDICINE [facility] [place] [facility] Apr 16, 2024 03:00 PM AMBULATORY - REHAB MEDICIN E [facility] [place] [facility] Apr 23, 2024 10:00 AM AMBULATORY - MEDICINE [facility] [place] [facility] Apr 24, 2024 10:00 AM AMBULATORY - REHAB MEDICIN E [facility] [place] [facility] Apr 27, 2024 10:15 AM AMBULATORY - MEDICINE [facility] [place] [facility] May 01, 2024 10:00 AM [facility] [place] [facility] May 16, 2024 10:00 AM [facility] [place] [facility] May 16, 2024 11:00 AM [facility]BULAT[facility] - [facility]AB [facility]ICIN [facility] [place] [facility] May 21, 2024 03:00 PM AMBULATORY - REHAB MEDICIN E [facility] [place] [facility] May 29, 2024 10:30 AM AMBULATORY - REHAB MEDICIN E [facility] [place] [facility] Jun 05, 2024 10:00 AM AMBULATORY - REHAB MEDICIN E [facility] [place] [facility] Jun 07, 2024 03:00 PM [facility]INE [facility] [place] [facility] Jun 12, 2024 10:00 AM AMBULATORY - REHAB MEDICIN E [facility] [place] [facility] Jun 14, 2024 10:30 AM AMBULATORY - NONE [facility] [place] [facility] Jun 15, 2024 02:00 PM [facility]INE [facility] [place] [facility] Jun 26, 2024 10:30 AM AMBULATORY - REHAB MEDICIN E [facility] [place] [facility] Jun 26, 2024 01:00 PM [facility]ULATORY - MEDICINE [facility] [place] [facility] Jul 03, 2024 10:30 AM AMBULATORY - REHAB MEDICIN [facility] [place] [facility] Jul 10, 2024 10:30 AM AMBULATORY - REHAB MEDICIN E [facility] [place] [facility] Jul 12, 2024 10:30 AM [facility] MEDICINE [facility] [place] [facility] Lab Results: +/- 30 days of the encounter This section includes the Chemistry and Hematology Lab Results on record with [place] for the patient. Radiology Reports and Pathology Reports are provided separately, in subsequent sections. Lab Results This section contains the Chemistry/Hematology Results that were resulted 30 days before or 30 daysafter the date of the Encounter. Date/Time Source Result Type Result - Unit Interpretation Reference Range Specimen Type Comment Apr 19, 2024 09:58 AM [facility] [place] [facility] BASIC METABOLIC PANEL (fasting) SERUM Specime n Type: SERUM No comment entered. Ordering Provider: AARON WALDEN Report Released Date/Time: Apr 14, 2024 05:40 PM Reporting Lab: [facility] [address] [facility] [address] Performing Lab: [address] [address] UREA NITROGEN 17 mg/dL 7-25 GLUCOSE 103 mg/dL H 65-100 SODIUM 139 mmol/L 135-145 POTASSIUM 4.2 mmol/L 3.5-5.0 CHLORIDE 107 mmol/L 100-110 CO2 25 meq/L 20-30 CREATININE, Serum 1.05 mg/dL 0.50-1.40 eGFR(CKD-EPI 2020) 73 mL/min >60 Apr 19, 2024 09:58 AM [facility] LIVER FUNCTION SERUM Specimen Type: SERUM No comment entered. Ordering Provider: AARON WALDEN Report Released Date/Time: Apr 14, 2024 05:40 PM Reporting Lab: [address] [address] Performing Lab: [address] [address] PROTEIN,TOTAL 6.8 g/dL 6.0-8.3 ALBUMIN 3.8 g/dL 3.5-5.0 ALKALINE PHOSPHATASE 69 U/L 40-150 AST 17 U/L 5-34 ALT 27 U/L BILIRUBIN, TOTAL 0.6 mg/dL 0.2-1.2 Apr 19, 2024 09:58 AM [facility] LIPID PANEL FASTING SERUM Specimen Type: SERU M No comment entered. Ordering Provider: AARON WALDEN Report Released Date/Time: Apr 14, 2024 05:40 PM Reporting Lab: [address] [address] Performing Lab: [address] [address] CHOLESTEROL 120 mg/dL TRIGLYCERIDE 98 mg/dL 0-150 LDL calculated 63 mg/dL 0-129 CHOL/HDL 3.2 HDL CHOLESTEROL 37 mg/dL L 40-60 Apr 19, 2024 09:58 AM [facility] TSH SERUM Specimen Type: SERUM No comment entered. Ordering Provider: AARON WALDEN Report Released Date/Time: Apr 14, 2024 05:40 PM Reporting Lab: [facility] [address] [facility] [address] Performing Lab: [address] [address] TSH 2.19 u[IU]/mL 0.35-5.00 Apr 19, 2024 09:58 AM [facility] URIC ACID SERUM Specimen Type: SERUM No comment entered. Ordering Provider: AARON WALDEN Report Released Date/Time: Apr 14, 2024 05:40 PM Reporting Lab: [address] [address] Performing Lab: [address] [address] URIC ACID 3.1 mg/dL L 3.5-7.2 Apr 19, 2024 09:58 AM [facility] CBC AND DIFF (AUTO) BLOOD Specimen Type: BLOO D No comment entered. Ordering Provider: AARON WALDEN Report Released Date/Time: Apr 14, 2024 05:40 PM Reporting Lab: [address] [address] Performing Lab: [address] [address] WBC 6.75 10*3/uL 4.50-11.00 RBC 3.99 10*6/uL [...] 10*3/uL 0.00-0.00 Apr 19, 2024 09:58 AM [facility] URINALYSIS CLEAN CATCH URINE Specimen Type: U RINE Comment: If Glucose = >500 and Ketones are positive, please alert the Physician. Ordering Provider: AARON WALDEN Report Released Date/Time: Apr 14, 2024 05:40 PM Reporting Lab: [address] [address] Performing Lab: [address] [address] UA COLOR Light-Yellow Yellow UA APPEARANCE Clear [...] took place. Date/Time Current Smoking Status Comment [facility] Apr 13, 2023 11:00 AM VA-TOBACCO FORMER USER [facility] [place] [facility] Tobacco Use History This section includes a history of the smoking, or tobacco-related health factors, that were collected on or before the date of the Encounter. The data comes from the [place] facility where the Encounter took place. Date/Time Smoking Status/Tobac co Use Comment [facility] Apr 13, 2023 11:00 AM VA-TOBACCO QUIT 5 TO < 15 YRS [facility] [place] [facility] Apr 14, 2022 01:30 PM VA-TOBACCO FORMER USER [facility] [place] [facility] Apr 14, 2022 01:30 PM VA-TOBACCO QUIT 5 TO < 15 YRS [facility] [place] [facility] Apr 10, 2021 10:00 AM VA-TOBACCO FORMER USER [facility] [place] [facility] Apr 10, 2021 10:00 AM VA-TOBACCO QUIT 5 TO < 15 YRS [facility] [place] [facility] Apr 02, 2020 10:30 AM VA-TOBACCO FORMER USER [facility] [place] [facility] Apr 02, 2020 10:30 AM VA-TOBACCO QUIT 5 TO < 15 YRS [facility] [place] [facility] Sep 29, 2018 08:52 AM VA-TOBACCO FORMER USER [facility] [place] [facility] Sep 29, 2018 08:52 AM VA-TOBACCO QUIT 15 YRS OR MORE [facility] [place] [facility] December 21, 2017 12:27 PM QUIT TOBACCO USE 1-7 YEARS AGO 5 or 6 years ago [facility] [place] [facility] May 19, 2017 10:21 AM QUIT TOBACCO USE 1-7 YEARS AGO [facility] [place] [facility] Aug 19, 2016 09:56 AM QUIT TOBACCO USE 1-7 YEARS AGO [facility] [place] [facility] Feb 12, 2016 11:34 AM QUIT TOBACCO USE 1-7 YEARS AGO [facility] [place] [facility] Aug 08, 2015 03:04 PM QUIT TOBACCO USE 1-7 YEARS AGO [facility] [place] [facility] Aug 08, 2015 03:04 PM QUIT TOBACCO USE IN PAST YEAR pt states he stooped smmoking in the past yr. [facility] Advance Directives: All historical [...] 20, 2012 ADVANCE DIRECTIVE DISCUSSION MONIKA IZAGUIRRE [facility] Reports: +/- 30 days of the [...] CERVICAL, 4 OR 5 VIEWS: SANCHO DYE [id number] -[id number] M Exm Date: MAR 09, 2024@09:52 Req Phys: BRYANNA MOORE Pat Loc: CWM/NO/SICK CALL PA (Req'g Loc Img Loc: [facility] 1 Service: Unknown [facility] [place] [address] (Case [id number] COMPLETE) SPINE CERVICAL, 4 OR 5 VIEWS (RAD Detailed) CPT:99226 Reason for Study: pain with radiating features to the left shoulder Clinical History: Report Status: Verified Date Reported: MAR 09, 2024 Date Verified: MAR 09, 2024 Campaign Assistant E-Sig:/ES/MIRTA NAVAS JR Report: Study: AP, lateral [...] Primary Interpreting Staff: MIRTA NAVAS JR, Radiologist (Campaign Assistant) /EAMIRTA BENSON JR [facility] Encounter Notes: All associated encounter notes This section contains the clinical notes associated to the Encounter. Date/Time Encounter Note(s) Provider Source Apr 06, 2024 10:29 AM OCCUPATIONAL MEDICINE CONSULT: LOCAL TITLE: CONSULT REPORT/OCCUPATIONAL THERAPY STANDARD TITLE: OCCUPATIONAL MEDICINE CONSULT DATE OF NOTE: APR 06, 2024@10:29 ENTRY DATE: APR 06, 2024@10:29:23 AUTHOR: PAM JEFFERSON COSIGNER: AARON WALDEN URGENCY: STATUS: COMPLETED Initial Evaluation date: Mar Progress Note Date: Treatment #: eval Treatment time: 45 minutes Diagnosis: Pain in left Shoulder(ICD-10-CM M25.512) Provider: Irma DIAZ Treatment Precautions: Patient identified by full name and date of S: Mr. Dye is a 78 y/o 80% SC male who was referred to OT for L shoulder pain. He was seen in the OT clinic on 04/06/2024. PMH: Active problems - Computerized Problem List is the source for the followin. Shoulder pain 2. Cerebral infarction 3. Exposure to potentially hazardous substance 4. Benign Prostatic Hypertrophy without Outflow Obstruction ([facility] [id number]) 5. Impaired fasting glucose 6. Chronic dermatitis 7. AF- Atrial Fibrillation ([facility] [id number]) 8. Coronary artery disease 9. Essential hypertension 10. Hypercholesterolemia 11. Gout 12. Gastro-esophageal reflux disease 13. History of colonic polyp 14. Erectile dysfunction EMMA: From September OT report: pt reports that he went to [place] on 08/29. he woke up and was in pain. he thinks it was the bed. he started Tylenol. he stayed on Tylenol for 3 weeks w/ no improvement. he has been taking muscle relaxers since the end of the August. he takes them before he goes to bed. he sleeps well. Pt reports that about a month ago he developed the shoulder pain again. Seemed to be coming out of nowhere. He thinks he overdid the shoulder exercises and that exacerbated the pain. He feels that it has improved slightly since a month ago. Sleeping in recliner. Imaging: X-ray dated 09/21/2023: Report: Study: AP internally and externally rotated and [...] no acute bony abnormality and punctate calcification above the greater tuberosity of the humerus, as described above. Primary Diagnostic Code: No immediate attention required Pain Level: 5-6/10 at rest, increasing to 8-9/10 at worst Pain Location: posterior shoulder/periscapular musculature/upper trap Aggravating Factors: rest, sleep Alleviating Factors: repositioning, muscle relaxers O: Pt is R hand dominant. 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 [employer], -. He enjoys fishing. Clinical Presentation: atrophy of supra and infra musculature b/l anterior tilt of L scapula as compared to R Palpation: ttp and adhesions at L upper trap AROM: Shoulder: [R] [L] Flexion: WNL WNL Abduction: WNL WNL IR: WNL WNL ER: WNL WNL *(+) for eccentric pain w/ shoulder flexion MMT: Shoulder: [R] [L] Flexion: 5/5 4+/5 Abduction: 5/5 4+/5 IR: 5/5 5/5 ER: 5/5 4+/5 Resisted Motions: discomfort noted w/ IR Special Tests: Lund: (-) L Neers: (+) L Empty Can: (+) L Drop Arm: (-) L Sensation: denies paresthesia's; intact to light touch. 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 He has multiple trigger points in his periscapular musculature that seem to be contributing to most of his pain. The ROM TE exacerbated pain. Pt was interested in trialing tx. PLAN: Pt will benefit from skilled OT 1-2x/week for 4-6 weeks. Tx to include: L shoulder ROM, L shoulder strengthening, scap stab, mobilization/manual therapy, pt. education, and modalities: ice, heat. Pt is in agreement w/ this POC. LTG's (6-8 weeks): 1. Pain: 2-3, at worst L shoulder 2. ROM: WFL and pain-free 3. pt will report 50% improvement since initiating tx STG's (3-6 weeks): 1. (I) w/ HEP 2. Pain: <9/10 at worst 3. Strength: 5/5 throughout L UE 4. improved sleep per pt report (return to sleeping in a bed) The practitioner's co-signature on this note signifies agreement with plan of care and clinical diagnosis code. /glenis/ Pam Jefferson, MS OTR/L, CHT Occupational Therapist Signed: 04/06/2024 15:23 /glenis/ Aaron Walden MD Staff Physician Cosigned: 04/06/2024 15:32 [facility]
--- OUTSIDE RECORDS SUMMARY | 2024-11-11 14:58 | XMS_ITS | Encounter Summary ---
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 Name Role Phone AARON WALDEN Primary [...] PART B Apr 24, 2013 PART B [id number] [place] PATIENT MEDICARE (WNR) MEDICARE () PART B Apr 24, 2013 PART B [id number] [facility]8 [place] R[place] PATIENT MEDICARE (WNR) MEDICARE () PART B Apr 24, 2013 PART B [id number] [place] R[place] PATIENT MEDICARE (WNR) MEDICARE () PART A November 23, 2011 PART A [id number] [place] R[place] PATIENT MEDICARE (WNR) MEDICARE () PART A November 23, 2011 PART A [id number] K[place] R[place] PATIENT MEDICARE (WNR) MEDICARE () PART A November 23, 2011 PART A [id number] KLEBER DYE PATIENT [employer] [place] [employer] PLAN G PLAN G Apr 24, 2013 PLAN G [id number] [phone] KLEBER DYE PATIENT [employer] [place] [employer] PLAN G Apr 24, 2013 PLANG [id number] KLEBER DYE PATIENT [employer] [place] [employer] PL[employer] G PLANG Apr 24, 2013 PLANG [id number] KLEBER DYE PATIENT Selected Encounter This section includes the information on record at [place] for the Encounter. Date/Time Encounter Type Encounter Description Reason Provider Source Oct 16, 2024 10:00 AM OFFICE O/P EST LOW 20 MIN PRIMARY CARE/MEDICINE ICD-10-CM I10 Essential (primary) hypertension AARON WLADEN [facility] Encounter Template Text not used by [place] Assessments - Encounter Diagnoses This section includes the primary and secondary diagnoses documented for the Encounter. Date/Time Primary/Secondary Diagnosis Diagnosis Name Provider Source Nov 08, 2024 03:26 PM PRIMARY Essential (primary) hypertension [facility] [place] [facility] Nov 08, 2024 03:26 PM SECONDARY Hematuria, unspecified AARON WALDEN [facility] [place] [facility] Plan of Treatment: Future Appointments (+ 6 months) and Future Tests (+/- 45 days) The Plan of Treatment section includes future care activities for the patient from all [place] treatmentfacilities. This section includes future appointments and future orders which are active, pending or scheduled. Future Appointments This section includes appointments that were scheduled to occur 6 months from the date of the Encounter, up to a maximum of 20 appointments. The data comes from all [place] treatment facilities. Appointment Date/Time Appointment Type Appointme nt Facility Name December 12, 2024 11:30 AM AMBULATORY - [place]ICINE [place] [facility] [facility] Dec 25, 2024 01:00 PM AMBULATORY - MEDICINE [place] [facility] Jan 01, 2025 09:00 AM AMBULATORY - MEDICINE [place] [facility] Apr 16, 2025 10:30 AM AMBULATORY - MEDICINE [facility] NTRL [facility] [place] [facility] Lab Results: +/- 30 days of the encounter This section includes the Chemistry and Hematology Lab Results on record with [place] for the patient. Radiology Reports and Pathology Reports are provided separately, in subsequent sections. Lab Results This section contains the Chemistry/Hematology Results that were resulted 30 days before or 30 daysafter the date of the Encounter. Date/Time Source Result Type Result - Unit Interpretation Reference Range Specimen Type Comment Oct 16, 2024 10:36 AM [facility] URINALYSIS CLEAN CATCH URINE Specimen Type: URINE Comment: If Glucose = >500 and Ketones are positive, please alert the Physician. Ordering Provider: AARON WALDEN Report Released Date/Time: Oct 16, 2024 10:21 AM Reporting Lab: [address] [address] Performing Lab: [address] [address] UA COLOR Yellow Yellow UA APPEARANCE Clear Clear UA GLUCOSE Normal mg/dL Negative UA KETONES NEGATIVE mg/dL Negative UA BLOOD NEGATIVE mg/dL Negative UA PROTEIN NEGATIVE mg/dL Negative UA NITRITE NEGATIVE mg/dL Negative UA BILIRUBIN NEGATIVE mg/dL Negative UA SPECIFIC GRAVITY 1.019 1.016-1.022 UA pH 6.0 5.0-9.0 UA UROBILINOGEN Normal mg/dL <2.0 UA LEUKOCYTE NEGATIVE Negative Oct 04, 2024 12:21 PM [facility] LIVER FUNCTION SERUM Specimen Type: SERUM No comment entered. Ordering Provider: AARON WALDEN Report Released Date/Time: Oct 04, 2024 12:06 PM Reporting Lab: [address] [address] Performing Lab: [address] [address] PROTEIN,TOTAL 6.4 g/dL 6.0-8.3 ALBUMIN 3.5 g/dL 3.5-5.0 ALKALINE PHOSPHATASE 66 U/L 40-150 AST 13 U/L 5-34 ALT 15 U/L BILIRUBIN, TOTAL 0.7 mg/dL 0.2-1.2 Oct 04, 2024 12:21 PM [facility] BASIC METABOLIC PANEL (fasting) SERUM Specime n Type: SERUM No comment entered. Ordering Provider: AARON WALDEN Report Released Date/Time: Oct 04, 2024 12:06 PM Reporting Lab: [facility] [address] [facility] [address] Performing Lab: [facility] [address] [facility] [address] UREA NITROGEN 17 mg/dL 7-25 GLUCOSE 101 mg/dL H 65-100 SODIUM 139 mmol/L 135-145 POTASSIUM 4.5 mmol/L 3.5-5.0 CHLORIDE 108 mmol/L 100-110 CO2 23 meq/L 20-30 CALCIUM 8.8 mg/dL 8.5-10.2 CREATININE, Serum 1.11 mg/dL 0.50-1.40 eGFR(CKD-EPI 2020) 68 mL/min >60 Oct 04, 2024 12:[address] [facility] TSH SERUM Specimen Type: SERUM No comment entered. Ordering Provider: AARON WALDEN Report Released Date/Time: Oct 04, 2024 12:06 PM Reporting Lab: [facility] [address] [facility] [address] Performing Lab: [facility] [address] [facility] [address] TSH 2.11 u[IU]/mL 0.35-5.00 Oct 04, 2024 12:21 PM [facility] LIPID PANEL FASTING SERUM Specimen Type: SERU M No comment entered. Ordering Provider: AARON WALDEN Report Released Date/Time: Oct 04, 2024 12:06 PM Reporting Lab: [facility] [address] [facility] [address] Performing Lab: [facility] [address] [facility] [address] CHOLESTEROL 88 mg/dL TRIGLYCERIDE 84 mg/dL 0-150 LDL calculated 41 mg/dL 0-129 CHOL/HDL 2.9 HDL CHOLESTEROL 30 mg/dL L 40-60 Oct 04, 2024 12:21 PM [facility] URIC ACID SERUM Specimen Type: SERUM No comment entered. Ordering Provider: AARON WALDEN Report Released Date/Time: Oct 04, 2024 12:06 PM Reporting Lab: [facility] [address] [facility] [address] Performing Lab: [address] [address] URIC ACID 3.1 mg/dL L 3.5-7.2 Oct 04, 2024 12:21 PM [facility] MICROSCOPIC AUTOMATED, URINE URINE Specimen T ype: URINE Comment: If Glucose = >500 and Ketones are positive, please alert the Physician. Ordering Provider: AARON WALDEN Report Released Date/Time: Oct 04, 2024 12:06 PM Reporting Lab: [address] [address] Performing Lab: [address] [address] UA WBC 0-5 /[HPF] 0-5 UA MUCUS FEW /[LPF] Trace UA HYALINE CASTS 5-9 /[LPF] H 0-2 UA RBC 6-10 /[HPF] H 0-3 Oct 04, 2024 12:21 PM [facility] CBC AND DIFF (AUTO) BLOOD Specimen Type: BLOO D No comment entered. Ordering Provider: AARON WALDEN Report Released Date/Time: Oct 04, 2024 12:06 PM Reporting Lab: [address] [address] Performing Lab: [address] [address] WBC 6.37 10*3/uL 4.50-11.00 RBC 3.82 10*6/uL [...] 10*3/uL 0.00-0.00 Oct 04, 2024 12:21 PM [facility] [address] [facility] URINALYSIS CLEAN CATCH URINE Specimen Type: U RINE Comment: If Glucose = >500 and Ketones are positive, please alert the Physician. Ordering Provider: AARON WALDEN Report Released Date/Time: Oct 04, 2024 12:06 PM Reporting Lab: [facility] [address] [facility] [address] Performing Lab: [address] [address] UA COLOR Yellow Yellow UA APPEARANCE Clear [...] 122/62 16 97 0 70.5 206.5 29 [place] Clean [facility]RL [place] [facility] Social History: Smoking Status (Most current) and Tobacco Use (All prior to encounter date) This section includes the most current, and the historical, smoking and tobacco- related health factors from the [place] facility where the Encounter took place. Current Smoking Status This section includes the most current smoking, or tobacco-related health factor, from the [place] facility where the Encounter took place. Date/Time Current Smoking Status Comment [facility] Apr 23, 2024 10:00 AM VA-TOBACCO FORMER USER [place] [facility] [place] [facility] Tobacco Use History This section includes a history of the smoking, or tobacco-related health factors, that were collected on or before the date of the Encounter. The data comes from the [place] facility where the Encounter took place. Date/Time Smoking Status/Tobac co Use Comment Facility Apr 23, 2024 10:00 AM VA-TOBACCO QUIT 5 TO < 15 YRS [facility] [place] [facility] Apr 13, 2023 11:00 AM VA-TOBACCO FORMER USER [place] [facility] [place] [facility] Apr 13, 2023 11:00 AM VA-TOBACCO QUIT 5 TO < 15 YRS [facility] [place] [facility] Apr 14, 2022 01:30 PM VA-TOBACCO FORMER USER [place] [facility] [place] [facility] Apr 14, 2022 01:30 PM VA-TOBACCO QUIT 5 TO < 15 YRS [facility] [place] [facility] Apr 10, 2021 10:00 AM VA-TOBACCO FORMER USER [place] [facility] [place] [facility] Apr 10, 2021 10:00 AM VA-TOBACCO QUIT 5 TO < 15 YRS [facility] [place] [facility] Apr 02, 2020 10:30 AM VA-TOBACCO FORMER USER [place] [facility] [place] [facility] Apr 02, 2020 10:30 AM VA-TOBACCO QUIT 5 TO < 15 YRS [facility] [place] [facility] Sep 29, 2018 08:52 AM VA-TOBACCO FORMER USER [place] [facility] [place] [facility] Sep 29, 2018 08:52 AM VA-TOBACCO QUIT 15 YRS OR MORE [facility] [place] [facility] December 21, 2017 12:27 PM QUIT TOBACCO USE 1-7 YEARS AGO 5 or 6 years ago [facility] May 19, 2017 10:21 AM QUIT TOBACCO USE [facility] [facility] Aug 19, 2016 09:56 AM QUIT TOBACCO USE 1-[address] [facility] Feb 12, 2016 11:34 AM QUIT TOBACCO USE 1-7 YEARS AGO [facility] Aug 08, 2015 03:04 PM QUIT TOBACCO USE 1-7 YEARS AGO [facility] Aug 08, 2015 03:04 PM QUIT TOBACCO USE IN PAST YEAR pt states he stooped smmoking in the past yr. [facility] Advance Directives: All historical and current Section Date Range: From patient's date of to the date document was created. This section includes ALL of a patient's completed or amended [place] Advance and Rescinded Directives. The entries below indicate that a directive exists for the patient, but an actual copy is not included with this document. The data comes from all [place] facilities. Date Advance Directives Provider Source Jun 20, 2012 ADVANCE DIRECTIVE DISCUSSION MONIKA IZAGUIRRE [facility] Pathology Reports: +/- 30 days of the [...] the Encounter. The data comes from all [place] treatment facilities. Date/Time Pathology Report Provider Source Oct 16, 2024 10:36 AM LR MICROBIOLOGY RE PORT: Reporting Lab: [facility] [CLIA# [id number]] [address] [place] [phone] Accession [UID]: [id number] [[id number]] Received: Oct 16, 2024@10:36 Collection sample: URINE CLEAN CATCH Collection date: Oct 16, 2024 10:36 Site/Specimen: URINE Provider: AARON WALDEN Test(s) ordered: URINE CULTURE([id number]).......... completed: Oct 19, 2024 09:18 * BACTERIOLOGY FINAL REPORT => Oct 19, 2024 09:18 TECH CODE: [id number] Bacteriology Remark(s): Culture in progress NO GROWTH IN 24 HOURS, FINAL REPORT TO FOLLOW. 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 Does not meet [place] criteria for colonoscopy. Follow-up 6 months clinic [...] Staff Physician Signed: 10/16/2024 10:29 AARON WALDEN [place] [facility] [place] [facility] Oct 16, 2024 09:55 AM PREVENTIVE MEDICINE [...] you were unable to say no Never ?? The HITS tool (items 1-4 above) is [place] copyright protected by Theodore Knight MD, and the user has full rights to use it throughout the [place] system. PRIMARY SCREEN RESULT: The Primary Screen is NEGATIVE. The individual answered never to all forms of IPV above (i.e., answered never to all 5 items) The individual accepts education and/or resources: Other: N/A EDUCATION: Other: N/a /glenis/ OSMANY PALOMINO LPN LPN Signed: 10/16/2024 09:59 OSMANY PALOMINO [place] [facility]
--- OUTSIDE RECORDS SUMMARY | 2024-11-11 14:58 | XMS_ITS | Encounter Summary ---
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 Name Role Phone LETICIA WALDEN Primary Care [...] PART B Apr 24, 2013 PART B [id number] [phone] KLEBER DYE RY PATIENT MEDICARE (WNR) MEDICARE () PART B Apr 24, 2013 PART B [id number] KLEBER DYE RY PATIENT MEDICARE (WNR) MEDICARE () PART B Apr 24, 2013 PART B [id number] [id number] KLEBER DYE RY PATIENT MEDICARE (WNR) MEDICARE () PART A November 23, 2011 PART A [id number] KLEBER DYE RY PATIENT MEDICARE (WNR) MEDICARE () PART A November 23, 2011 PART A [id number] KLEBER DYE RY PATIENT MEDICARE (WNR) MEDICARE () PART A November 23, 2011 PART A [id number] KLEBER DYE PATIENT [employer] [place] [employer] PLAN G PLAN G Apr 24, 2013 PLAN G [id number] KLEBER DYE PATIENT [employer] [place] [employer] PLAN G PLANG Apr 24, 2013 PLANG [id number] KLEBER DYE PATIENT [employer] [place] [employer] PLAN G Apr 24, 2013 PLANG [id number] KLEBER DYE PATIENT Selected Encounter This section includes the information on record at [place] for the Encounter. Date/Time Encounter Type Encounter Description Reason Provider Source Jul 24, 2024 10:00 AM THERAPEUTIC EXERCISES OCCUPATIONAL THERAPY ICD-10-CM M25.512 Pain in left shoulder PAM JEFFERSON IHE Encounter Template Text not used by [place] Assessments - Encounter Diagnoses This section includes the primary and secondary diagnoses documented for the Encounter. Date/Time Primary/Secondary Diagnosis Diagnosis Name Provider Source Aug 12, 2024 05:51 PM PRIMARY Pain in left shoulder BRAULIO EJFFERSONLIE E [place] CNT [place] [facility] Plan of Treatment: Future Appointments (+ 6 months) and Future Tests (+/- 45 days) The Plan of Treatment section includes future care activities for the patient from all [place] [facility]. This section includes future appointments and future orders which are active, pending or scheduled. Future Appointments This section includes appointments that were scheduled to occur 6 months from the date of the Encounter, up to a maximum of 20 appointments. The data comes from all [place] treatment facilities. Appointment Date/Time Appointment Type Appointme nt Facility Name Aug 09, 2024 10:00 AM AMBULATORY - MEDICINE [place] [facility] Aug 10, 2024 10:00 AM AMBULATORY - REHAB MEDICIN E [place] [facility] [place] [facility] Aug 14, 2024 11:00 AM AMBULATORY - MEDICINE [place] C [place] [facility] Aug 27, 2024 11:00 AM AMBULATORY - NONE [place] [facility] [place] [facility] Aug 28, 2024 10:30 AM AMBULATORY - REHAB MEDICIN E [place] [facility] [place] [facility] Sep 12, 2024 01:00 PM AMBULATORY - REHAB MEDICIN E [facility] [place] [facility] Oct 04, 2024 03:00 PM AMBULATORY - MEDICINE [facility] C [facility] [place] [facility] Oct 16, 2024 10:00 AM AMBULATORY - MEDICINE [facility] C [facility] [place] [facility] December 12, 2024 11:30 AM AMBULATORY - MEDICINE [place] C [facility] [place] [facility] Dec 25, 2024 01:00 PM AMBULATORY - MEDICINE [place] [facility] [place] [facility] Jan 01, 2025 09:00 AM AMBULATORY - MEDICINE [place] [facility] [place] [facility] Social History: Smoking Status (Most current) and Tobacco Use (All prior to encounter date) This section includes the most current, and the historical, smoking and tobacco- related health factors from the [place] facility where the Encounter took place. Current Smoking Status This section includes the most current smoking, or tobacco-related health factor, from the [place] facility where the Encounter took place. Date/Time Current Smoking Status Comment Ivan almonte Apr 23, 2024 10:00 AM VA-TOBACCO QUIT 5 TO < 15 YRS [facility] [place] [facility] Tobacco Use History This section includes a history of the smoking, or tobacco-related health factors, that were collected on or before the date of the Encounter. The data comes from the [place] facility where the Encounter took place. Date/Time Smoking Status/Tobac co Use Comment [facility] Apr 23, 2024 10:00 AM VA-TOBACCO QUIT 5 TO < 15 YRS [facility] [place] [facility] Apr 13, 2023 11:00 AM VA-TOBACCO FORMER USER [facility] [place] [facility] Apr 13, 2023 11:00 AM VA-TOBACCO QUIT 5 TO < 15 YRS [facility] [place] [facility] Apr 14, 2022 01:30 PM VA-TOBACCO FORMER USER [facility] [place] [facility] Apr 14, 2022 01:30 PM VA-TOBACCO QUIT 5 TO < 15 YRS [facility] [place] [facility] Apr 10, 2021 10:00 AM VA-TOBACCO FORMER USER [facility] [place] [facility] Apr 10, 2021 10:00 AM VA-TOBACCO QUIT 5 TO < 15 YRS [facility] [place] [facility] Apr 02, 2020 10:30 AM VA-TOBACCO FORMER USER [place] [facility] [facility] Apr 02, 2020 10:30 AM VA-TOBACCO QUIT 5 TO < 15 YRS [place] [facility] [place] [facility] Sep 29, 2018 08:52 AM VA-TOBACCO FORMER USER [place] [facility] [facility] Sep 29, 2018 08:52 AM VA-TOBACCO QUIT 15 YRS OR MORE [place] [facility] [place] [facility] December 21, 2017 12:27 PM QUIT TOBACCO USE 1-7 YEARS AGO 5 or 6 years ago [place] [facility] [place] [facility] May 19, 2017 10:21 AM QUIT TOBACCO USE 1-7 YEARS AGO [place] [facility] [place] [facility] Aug 19, 2016 09:56 AM QUIT TOBACCO USE 1-7 YEARS AGO [place] [facility] [place] [facility] Feb 12, 2016 11:34 AM QUIT TOBACCO USE 1-7 YEARS AGO [place] [facility] [place] [facility] Aug 08, 2015 03:04 PM QUIT TOBACCO USE 1-7 YEARS AGO [place] [facility] [place] [facility] Aug 08, 2015 03:04 PM QUIT TOBACCO USE IN PAST YEAR pt states he stooped smmoking in the past yr. [facility] [place] [facility] Advance Directives: All historical and current Section Date Range: From patient's date of to the date document was created. This section includes ALL of a patient's completed or amended [place] Advance and Rescinded Directives. The entries below indicate that a directive exists for the patient, but an actual copy is not included with this document. The data comes from all [place] facilities. Date Advance Directives Provider Source Jun 20, 2012 ADVANCE DIRECTIVE DISCUSSION MONIKA IZAGUIRRE [facility] Encounter Notes: All associated encounter notes This [...] extension w/ green band, 2x10 Access Code: [email or web address] URL: [email or web address] Date: 07/10/2024 Prepared by: PARUL [facility] Exercises - Seated Shoulder Flexion AAROM with [...] Signed: 07/24/2024 12:06 PAM JEFFERSON CNTRL W[facility]N [facility]
--- OUTSIDE RECORDS SUMMARY | 2024-11-11 14:58 | XMS_ITS ---
Author Name [facility] [place] [facility] [place] Organization [facility] [place] [facility] [place] Address [address] [place] [address] Care Team Providers Care Grade Recorder Name Role Phone LETICIA WALDEN Primary Care [...] PART B Apr 24, 2013 PART B [id number] 80A KLEBER DYE RY PATIENT MEDICARE (WNR) MEDICARE () PART B Apr 24, 2013 PART B [id number] [phone] [id number] KLEBER DYE RY PATIENT MEDICARE (WNR) MEDICARE () PART B Apr 24, 2013 PART B [id number] KLEBER DYE RY PATIENT MEDICARE (WNR) MEDICARE () PART A November 23, 2011 PART A [id number] 80A KLEBER DYE RY PATIENT MEDICARE (WNR) MEDICARE () PART A November 23, 2011 PART A [id number] [id number] KLEBER DYE RY PATIENT MEDICARE (WNR) MEDICARE () PART A November 23, 2011 PART A [id number] KLEBER DYE PATIENT [employer] PLAN G PLAN G Apr 24, 2013 PLAN G [id number] KLEBER DYE PATIENT [employer] PLAN G PLANG Apr 24, 2013 PLANG [id number] KLEBER DYE PATIENT [employer] PLAN G Apr 24, 2013 PLANG [id number] KLEBER DYE PATIENT Selected Encounter This section includes the information on record at [place] for the Encounter. Date/Time Encounter Type Encounter Description Reason Provider Source Jun 26, 2024 01:00 PM MANUAL THERAPY 1/> [facility] PLATFORM INSPECTOR ICD-10-CM M54.2 Cervicalgia MICHELLE TAVARES Greta Encounter Template Text not used by AL Assessments - Encounter Diagnoses This section includes the primary and secondary diagnoses documented for the Encounter. Date/Time Primary/Secondary Diagnosis Diagnosis Name Provider Source Sep 20, 2024 10:02 AM PRIMARY CervicalMICHELLE Hand [facility] Plan of Treatment: Future Appointments (+ 6 months) and Future Tests (+/- 45 days) The Plan of Treatment section includes future care activities for the patient from all [place] treatmentfacilities. This section includes future appointments and future orders which are active, pending or scheduled. Future Appointments This section includes appointments that were scheduled to occur 6 months from the date of the Encounter, up to a maximum of 20 appointments. The data comes from all [place] treatment facilities. Appointment Date/Time Appointment Type Appointme nt Facility Name Jul 03, 2024 10:30 AM AMBULATORY - REHAB MEDICIN E [facility] Jul 10, 2024 10:30 AM AMBULATORY - REHAB MEDICIN E [facility] Jul 12, 2024 10:30 AM AMBULATORY - MEDICINE [facility] Jul 24, 2024 10:00 AM AMBULATORY - REHAB MEDICIN E [facility] Aug 09, 2024 10:00 AM AMBULATORY - MEDICINE [facility] Aug 10, 2024 10:00 AM AMBULATORY - REHAB MEDICIN E [facility] Aug 14, 2024 11:00 AM AMBULATORY - MEDICINE [facility] Aug 27, 2024 11:00 AM AMBULATORY - NONE [facility] Aug 28, 2024 10:30 AM AMBULATORY - REHAB MEDICIN E [facility] Sep 12, 2024 01:00 PM AMBULATORY - REHAB MEDICIN E [facility] Oct 04, 2024 03:00 PM AMBULATORY - MEDICINE [facility] Oct 16, 2024 10:00 AM AMBULATORY - MEDICINE [facility] December 12, 2024 11:30 AM AMBULATORY - MEDICINE [facility] Dec 25, 2024 01:00 PM AMBULATORY - MEDICINE [facility] Social History: Smoking Status (Most current) and Tobacco Use (All prior to encounter date) This section includes the most current, and the historical, smoking and tobacco- related health factors from the [place] facility where the Encounter took place. Current Smoking Status This section includes the most current smoking, or tobacco-related health factor, from the [place] facility where the Encounter took place. Date/Time Current Smoking Status Comment [facility] Apr 23, 2024 10:00 AM VA-TOBACCO QUIT 5 TO < 15 YRS [facility] Tobacco Use History This section includes a history of the smoking, or tobacco-related health factors, that were collected on or before the date of the Encounter. The data comes from the [place] facility where the Encounter took place. Date/Time Smoking Status/Tobac co Use Comment Facility Apr 23, 2024 10:00 AM VA-TOBACCO QUIT 5 TO < 15 YRS [facility] Apr 13, 2023 11:00 AM VA-TOBACCO FORMER USER [facility] Apr 13, 2023 11:00 AM VA-TOBACCO QUIT 5 TO < 15 YRS [facility] Apr 14, 2022 01:30 PM VA-TOBACCO FORMER USER [facility] Apr 14, 2022 01:30 PM VA-TOBACCO QUIT 5 TO < 15 YRS [facility] Apr 10, 2021 10:00 AM VA-TOBACCO FORMER USER [facility] Apr 10, 2021 10:00 AM VA-TOBACCO QUIT 5 TO < 15 YRS [facility] Apr 02, 2020 10:30 AM VA-TOBACCO FORMER USER [facility] Apr 02, 2020 10:30 AM VA-TOBACCO QUIT 5 TO < 15 YRS [facility] Sep 29, 2018 08:52 AM VA-TOBACCO FORMER USER [facility] Sep 29, 2018 08:52 AM VA-TOBACCO QUIT 15 YRS OR MORE [facility] December 21, 2017 12:27 PM QUIT TOBACCO USE 1-7 YEARS AGO 5 or 6 years ago [facility] May 19, 2017 10:21 AM QUIT TOBACCO USE 1-7 YEARS AGO [facility] Aug 19, 2016 09:56 AM QUIT TOBACCO USE 1-7 YEARS AGO [facility] Feb 12, 2016 11:34 AM QUIT TOBACCO USE 1-7 YEARS AGO [facility] Aug 08, 2015 03:04 PM QUIT TOBACCO USE 1-7 YEARS AGO [facility] Aug 08, 2015 03:04 PM QUIT TOBACCO USE IN PAST YEAR pt states he stooped smmoking in the past yr. [facility] Advance Directives: All historical and current Section Date Range: From patient's date of to the date document was created. This section includes ALL of a patient's completed or amended [place] Advance and Rescinded Directives. The entries below indicate that a directive exists for the patient, but an actual copy is not included with this document. The data comes from all [place] facilities. Date Advance Directives Provider Source Jun 20, 2012 ADVANCE DIRECTIVE DISCUSSION MONIKA IZAGUIRRE [facility] Radiology Reports: +/- 30 days of the [...] the Encounter. The data comes from all [place] treatment facilities. Date/Time Radiology Report Provider Source Jun 14, 2024 10:20 AM LDCT LUNG CANCER SCREENING: SANCHO DYE [id number] -[id number] M Exm Date: JUN 14, 2024@10:20 Req Phys: LETICIA WALDEN Loc: ZZCWM/NO/LCS ADMIN (Req'g Loc) Img Loc: NHM/CT Service: [place] [address] (Case [id number] COMPLETE) LDCT LUNG CANCER SCREENING (CT Detailed) CPT:04750 Reason for Study: LUNG CANCER SCREENING Clinical History: 53 TPY-Quit 2012 Prior chest imaging: CT scan the chest from May 25, 2022, May 07, 2021, April 29, 2020, April 18, 2019 and December 12, 2017. LCS LDCT on 06/15/2023: LR 1 Report Status: Verified Date Reported: JUN 14, 2024 Date Verified: JUN 14, 2024 Associate Professor Of English E-Sig:/ES/MIRTA NAVAS JR Report: Study: Lung cancer [...] reviewed. Secondary computer-aided detection with post-processing from [employer] is used. The lack of intravenous contrast [...] Primary Interpreting Staff: MIRTA NAVAS JR, Radiologist (Associate Professor Of English) /MIRTA CASIANO JR [facility] Encounter Notes: All associated encounter notes This [...] 06/24/2023 LETICIA WALDEN AF- Atrial Fibrillation (SCT [id number] 12/23/2017 LETICIA WALDEN Coronary artery disease I25.10, [...] different bed. He just flew down to [place]. HX; During service natural falls down but [...] of cortisone which alleviated the sx. Prior long term care phlebotomist: yes for R shoulder and neck Activities: [...] Signed: 06/27/2024 14:55 MICHELLE TAVARES [facility]
--- OUTSIDE RECORDS SUMMARY | 2024-11-11 14:58 | XMS_ITS ---
Author Name [facility] [place] Organization [facility] [place] Address [address] [place] [address] Care Team Providers Care Tower Air Traffic Control Specialist Name Role Phone LETICIA WALDEN Primary [...] PART B Apr 24, 2013 PART B [id number] 80A KLEBER DYE RY PATIENT MEDICARE (WNR) MEDICARE () PART B Apr 24, 2013 PART B [id number] [id number] [id number] KLEBER DYE RY PATIENT MEDICARE (WNR) MEDICARE () PART B Apr 24, 2013 PART B [id number] KLEBER DYE RY PATIENT MEDICARE (WNR) MEDICARE () PART A November 23, 2011 PART A [id number] 80A KLEBER DYE RY PATIENT MEDICARE (WNR) MEDICARE () PART A November 23, 2011 PART A [id number] [phone] [id number] KLEBRE DYE RY PATIENT MEDICARE (WNR) MEDICARE () PART A November 23, 2011 PART A [id number] KLEBER DYE PATIENT [employer] PLAN G PLAN G Apr 24, 2013 PLAN G [id number] KLEBER DYE PATIENT [employer] PLAN G PLANG Apr 24, 2013 PLANG [id number] KLEBER DYE PATIENT [employer] PLAN G Apr 24, 2013 PLANG [id number] KLEBER DYE PATIENT Selected Encounter This section includes the information on record at [place] for the Encounter. Date/Time Encounter Type Encounter Description Reason Pro vider Source Nov 11, 2024 01:37 PM Outpatient Encounter TELEPHONE TRIAGE IHE Encounter Template Text not used by [place] Plan of Treatment: Future Appointments (+ 6 months) and Future Tests (+/- 45 days) The Plan of Treatment section includes future care activities for the patient from all [place] treatmentfacilities. This section includes future appointments and future orders which are active, pending or scheduled. Future Appointments This section includes appointments that were scheduled to occur 6 months from the date of the Encounter, up to a maximum of 20 appointments. The data comes from all [place] treatment facilities. Appointment Date/Time Appointment Type Appointme nt Facility Name December 12, 2024 11:30 AM AMBULATORY - MEDICINE [facility] Dec 25, 2024 01:00 PM AMBULATORY MEDICINE [facility] Jan 01, 2025 09:00 AM AMBULATORY MEDICINE [facility] Apr 16, 2025 10:30 AM AMBULATORY - MEDICINE [facility] Lab Results: +/- 30 days of the encounter This section includes the Chemistry and Hematology Lab Results on record with [place] for the patient. Radiology Reports and Pathology Reports are provided separately, in subsequent sections. Lab Results This section contains the Chemistry/Hematology Results that were resulted 30 days before or 30 daysafter the date of the Encounter. Date/Time Source Result Type Result - Unit Interpretation Reference Range Specimen Type Comment Oct 16, 2024 10:36 AM [facility] URINALYSIS CLEAN CATCH URINE Specimen Type: URINE Comment: If Glucose = >500 and Ketones are positive, please alert the Physician. Ordering Provider: LETICIA WALDEN Report Released Date/Time: Oct 16, 2024 10:21 AM Reporting Lab: [facility] [address] [facility] [address] Performing Lab: [facility] [address] [facility] [address] UA COLOR Yellow Yellow UA APPEARANCE Clear [...] and tobacco- related health factors from the [place] facility where the Encounter took place. Current Smoking Status This section includes the most current smoking, or tobacco-related health factor, from the [place] facility where the Encounter took place. Date/Time Current Smoking Status Comment [facility] Apr 23, 2024 10:00 AM NM-TOBACCO QUIT 5 TO < 15 YRS [facility] Tobacco Use History This section includes a history of the smoking, or tobacco-related health factors, that were collected on or before the date of the Encounter. The data comes from the [place] facility where the Encounter took place. Date/Time Smoking Status/Tobac co Use Comment Facility Apr 23, 2024 10:00 AM VA-TOBACCO QUIT 5 TO < 15 YRS [facility] [place] [facility] Apr 13, 2023 11:00 AM VA-TOBACCO FORMER USER [facility] Apr 13, 2023 11:00 AM VA-TOBACCO QUIT 5 TO < 15 YRS [place] [facility] [place] [facility] Apr 14, 2022 01:30 PM VA-TOBACCO FORMER USER [place] [facility] [place] [facility] Apr 14, 2022 01:30 PM VA-TOBACCO QUIT 5 TO < 15 YRS [facility] [place] [facility] Apr 10, 2021 10:00 AM VA-TOBACCO FORMER USER [place] [facility] [place] [facility] Apr 10, 2021 10:00 AM VA-TOBACCO QUIT 5 TO < 15 YRS [facility] [place] [facility] Apr 02, 2020 10:30 AM VA-TOBACCO FORMER USER [facility] [place] [facility] Apr 02, 2020 10:30 AM VA-TOBACCO QUIT 5 TO < 15 YRS [facility] [place] [facility] Sep 29, 2018 08:52 AM VA-TOBACCO FORMER USER [facility] [place] [facility] Sep 29, 2018 08:52 AM VA-TOBACCO QUIT 15 YRS OR MORE [facility] [place] [facility] December 21, 2017 12:27 PM QUIT TOBACCO USE 1-7 YEARS AGO 5 or 6 years ago [facility] [place] [facility] May 19, 2017 10:21 AM QUIT TOBACCO USE 1-7 YEARS AGO [facility] [place] [facility] Aug 19, 2016 09:56 AM QUIT TOBACCO USE 1-7 YEARS AGO [facility] [place] [facility] Feb 12, 2016 11:34 AM QUIT TOBACCO USE 1-7 YEARS AGO [facility] [place] [facility] Aug 08, 2015 03:04 PM QUIT TOBACCO USE 1-7 YEARS AGO [facility] [place] [facility] Aug 08, 2015 03:04 PM QUIT TOBACCO USE IN PAST YEAR pt states he stooped smmoking in the past yr. [facility] Advance Directives: All historical and current Section Date Range: From patient's date of to the date document was created. This section includes ALL of a patient's completed or amended [place] Advance and Rescinded Directives. The entries below indicate that a directive exists for the patient, but an actual copy is not included with this document. The data comes from all [place] facilities. Date Advance Directives Provider Source Jun 20, 2012 ADVANCE DIRECTIVE DISCUSSION MONIKA IZAGUIRRE [facility] Pathology Reports: +/- 30 days of the [...] the Encounter. The data comes from all [place] treatment facilities. Date/Time Pathology Report Provider Source Oct 16, 2024 10:36 AM LR MICROBIOLOGY RE PORT: Reporting Lab: [facility] [CLIA# [id number]] [address] [place] [address] Accession [UID]: [id number] [[id number]] Received: Oct 16, 2024@10:36 Collection sample: URINE CLEAN CATCH Collection date: Oct 16, 2024 10:36 Site/Specimen: URINE Provider: LETICIA WALDEN Test(s) ordered: URINE CULTURE(MWROX).......... completed: Oct 19, 2024 09:18 * BACTERIOLOGY FINAL REPORT => Oct 19, 2024 09:18 TECH CODE: [id number] Bacteriology Remark(s): Culture in progress NO GROWTH IN 24 HOURS, FINAL REPORT TO FOLLOW. FINAL AEROBIC REPORT: NO GROWTH =--=--=--=--=--=--=--=--= --=--=--=--=--=--=--=--=- -=--=--=--=--=--=--=--=-- =-- Performing Laboratory: Bacteriology Report Performed By: [facility] [CLIA# [id number]] [address] [place] [address] [facility] Encounter Notes: All associated encounter notes This section contains the clinical notes associated to the Encounter. Date/Time Encounter Note(s) Provider Source Nov 11, 2024 01:37 PM RN PROGRESS NOTE: LOCAL TITLE: CCC: CLINICAL TRIAGE STANDARD TITLE: RN PROGRESS NOTE DATE OF NOTE: NOV 11, 2024@13:37:33 ENTRY DATE: NOV 11, 2024@13:37:34 AUTHOR: MOUNIKA WHITAKER COSIGNER: URGENCY: STATUS: COMPLETED Caller Verification Caller/Recipient Relation to Patient: Self Caller Name: SANCHO DYE Emergency Contact: JOMAR TORRES Triage Summary Conducted triage/discussed symptoms Pain Score: 0 (No Pain) Utilized the Triage Tool: Yes Chief Complaint: Vision Change System WHEN: Within 8 Hours Nurse's Recommendation / WHEN: Now System WHERE: Emergency department Nurse's Recommendation / WHERE: ED Other WHEN/WHERE modifier reason: Distance from Hospital Other - Modifiers: Duration and severity of symptoms Patient Disposition Patient/Caregiver agrees to plan of care: Yes Patient is Urgent or Emergent Nursing Plan and Disposition Referred patient to higher level of care Instructed to go to Emergency Room (ER) Advised of Financial Disclaimer: Patient advised that recommendation for care provided during the call does not constitute an approval or authorization for payment by the [place] or its staff. Patient advised to report a community ED visit to the [facility] Office of Community Care at within 72 hours. Nurse Summary Nurse Summary: Stanley reports the following: PMH: Blood clot to left eye approx. 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 Experiencing increased vision loss with more purple in his field of vison that started 4 days ago. Clinical Contact Center Codes Clinic/Location: V1 CWM PHONE CCC RN Decision Support System Output: Triage Complete Triage Date: 11/11/2024, 01:29 PM Triage Note: Decision Support Tool Used: [employer] Phone Triage Sun, 11 Nov 2024 17:28:00 +0000 [facility] Demographics 78 y/o Male Results CC: Vision Change Software suggested: Within 8 Hours Software suggested follow-up location: Emergency department Values and Measures Duration of CC: 4 Days Positive Responses HPI: vision loss, new Negative Responses Denies: FH: multiple sclerosis Denies: HPI: blurry vision, new Denies: HPI: corneal opacification Denies: HPI: diplopia, developed over hours to days Denies: HPI: diplopia, episodic Denies: HPI: diplopia, sudden onset Denies: HPI: eye injury Denies: HPI: eye pain Denies: HPI: eye redness Denies: HPI: scintillating scotomata Denies: HPI: scotoma, black spots, sudden onset Denies: HPI: scotoma, floaters, sudden onset Denies: HPI: vision loss, bilateral, sudden onset Denies: HPI: vision loss, unilateral, sudden onset Denies: PMH: multiple sclerosis Denies: PMH: optic neuritis Stanley Education Verbal Education Provided for: Vision [facility] IMPORTANT: This note was created by [facility] Clinical Contact Center staff. Please do not alert the staff member by adding them as a signer for future communications. Alerts are not monitored by this user. /glenis/ MYESHA Cohn,RN VISN 2 [facility] NURSE Signed: 11/11/2024 13:37 Receipt Acknowledged By: * AWAITING SIGNATURE * KISHAN CORREA * AWAITING SIGNATURE * OSMANY PALOMINO ALEXANDRA [place] [facility]
--- OUTSIDE RECORDS SUMMARY | 2024-11-11 14:58 | XMS_ITS | Encounter Summary ---
Author Name [facility] [place] [facility] [place] Address [address] [place] [address] Care Team Providers Care Sand Miller Name Role Phone LETICIA WALDEN Primary Care [...] PART B Apr 24, 2013 PART B [id number] [phone] KLEBER DYE RY PATIENT MEDICARE (WNR) MEDICARE () PART B Apr 24, 2013 PART B [id number] [place] R[place] PATIENT MEDICARE (WNR) MEDICARE () PART B Apr 24, 2013 PART B [id number] K[place] RY PATIENT MEDICARE (WNR) MEDICARE () PART A November 23, 2011 PART A [id number] KLEBER DYE RY PATIENT MEDICARE (WNR) MEDICARE () PART A November 23, 2011 PART A [id number] [phone] KLEBER DYE RY PATIENT MEDICARE (WNR) MEDICARE () PART A November 23, 2011 PART A [id number] KLEBER DYE PATIENT [employer] PLAN G PLAN G Apr 24, 2013 PLAN G [id number] [phone] KLEBER DYE PATIENT [employer] PLAN G PLANG Apr 24, 2013 PLANG [id number] KLEBER DYE PATIENT [employer] PLAN G Apr 24, 2013 PLANG [id number] KLEBER DYE PATIENT Selected Encounter This section includes the information on record at [place] for the Encounter. Date/Time Encounter Type Encounter Description Reason Provider Source Jun 05, 2024 10:00 AM THERAPEUTIC EXERCISES OCCUPATIONAL THERAPY ICD-10-CM M25.512 Pain in left shoulder TAO JEFFERSONE Greta IHE Encounter Template Text not used by [place] Assessments - Encounter Diagnoses This section includes the primary and secondary diagnoses documented for the Encounter. Date/Time Primary/Secondary Diagnosis Diagnosis Name Provider Source Jun 16, 2024 07:26 AM PRIMARY Pain in left shoulder RONNYPAM E [facility] Plan of Treatment: Future Appointments (+ 6 months) and Future Tests (+/- 45 days) The Plan of Treatment section includes [facility] care [facility] the [facility] [place] [facility] This section includes future appointments and future orders which are active, pending or scheduled. Future Appointments This section includes appointments that were scheduled to occur 6 months from the date of the Encounter, up to a maximum of 20 appointments. The data comes from all [place] treatment facilities. Appointment Date/Time Appointment Type Appointme nt Facility Name Jun 07, 2024 03:00 PM AMBULATORY [place]ICINE [place] [facility] Jun 12, 2024 10:00 AM AMBULATORY - REHAB MEDICIN E [facility] Jun 14, 2024 10:30 AM AMBULATORY - NONE [facility] Jun 15, 2024 02:00 PM AM[facility]ORY [place] [facility] Jun 26, 2024 10:30 AM AMBULATORY - RE[facility] MEDICIN E [facility] Jun 26, 2024 01:00 PM [facility]UL[facility]INE [facility] Jul 03, 2024 10:30 AM AMBULATORY - REHAB MEDICIN E [facility] Jul 10, 2024 10:30 AM AMBULATORY - REHAB MEDICIN E [facility] Jul 12, 2024 10:30 AM AM[facility]ULATORY [facility] MEDICINE [facility] Jul 24, 2024 10:00 AM AMBULATORY - REHAB MEDICIN E [facility] Aug 09, 2024 10:00 AM AM[facility]ULATORY - MEDICINE [facility] Aug 10, 2024 10:00 AM AMBULATORY - REHAB MEDICIN E [facility] Aug 14, 2024 11:00 AM AMBULATORY - MEDICINE [facility] Aug 27, 2024 11:00 AM AMBULATORY - NONE [facility] Aug 28, 2024 10:30 AM AMBULATORY - REHAB MEDICIN E [facility] Sep 12, 2024 01:00 PM AMBULATORY - REHAB MEDICIN E [facility] Oct 04, 2024 03:00 PM [facility]ULATORY [facility] MEDICINE [facility] Oct 16, 2024 10:00 AM AM[place]UL[place]ORY [place]ICINE [place] [facility] Social History: Smoking Status (Most current) and Tobacco Use (All prior to encounter date) This section includes the most current, and the historical, smoking and tobacco- related health factors from the [place] facility where the Encounter took place. Current Smoking Status This section includes the most current smoking, or tobacco-related health factor, from the [place] facility where the Encounter took place. Date/Time Current Smoking Status Comment Facil it Apr 23, 2024 10:00 AM VA-TOBACCO QUIT 5 TO < 15 YRS [facility] Tobacco Use History This section includes a history of the smoking, or tobacco-related health factors, that were collected on or before the date of the Encounter. The data comes from the [place] facility where the Encounter took place. Date/Time Smoking Status/Tobac co Use Comment Facility Apr 23, 2024 10:00 AM VA-TOBACCO QUIT 5 TO < 15 YRS [facility] Apr 13, 2023 11:00 AM VA-TOBACCO FORMER USER [facility] Apr 13, 2023 11:00 AM VA-TOBACCO QUIT 5 TO < 15 YRS [facility] Apr 14, 2022 01:30 PM VA-TOBACCO FORMER USER [facility] Apr 14, 2022 01:30 PM VA-TOBACCO QUIT 5 TO < 15 YRS [facility] Apr 10, 2021 10:00 AM VA-TOBACCO FORMER USER [facility] Apr 10, 2021 10:00 AM VA-TOBACCO QUIT 5 TO < 15 YRS [facility] Apr 02, 2020 10:30 AM VA-TOBACCO FORMER USER [facility] Apr 02, 2020 10:30 AM VA-TOBACCO QUIT 5 TO < 15 YRS [facility] Sep 29, 2018 08:52 AM VA-TOBACCO FORMER USER [facility] Sep 29, 2018 08:52 AM VA-TOBACCO QUIT 15 YRS OR MORE [facility] December 21, 2017 12:27 PM QUIT TOBACCO USE 1-7 YEARS AGO 5 or 6 years ago [facility] May 19, 2017 10:21 AM QUIT TOBACCO USE 1-7 YEARS AGO [facility] Aug 19, 2016 09:56 AM QUIT TOBACCO USE 1-7 YEARS AGO [facility] Feb 12, 2016 11:34 AM QUIT TOBACCO USE 1-7 YEARS AGO [facility] Aug 08, 2015 03:04 PM QUIT TOBACCO USE 1-7 YEARS AGO [facility] Aug 08, 2015 03:04 PM QUIT TOBACCO USE IN PAST YEAR pt states he stooped smmoking in the past yr. [facility] Advance Directives: All historical and current Section Date Range: From patient's date of to the date document was created. This section includes ALL of a patient's completed or amended [place] Advance and Rescinded Directives. The entries below indicate that a directive exists for the patient, but an actual copy is not included with this document. The data comes from all [place] facilities. Date Advance Directives Provider Source Jun 20, 2012 ADVANCE DIRECTIVE DISCUSSION MONIKA IZAGUIRRE [facility] Radiology Reports: +/- 30 days of the [...] the Encounter. The data comes from all [place] treatment facilities. Date/Time Radiology Report Provider Source Jun 14, 2024 10:20 AM LDCT LUNG CANCER SCREENING: DYESANCHO [id number] -[id number] M Exm Date: JUN 14, 2024@10:20 Req Phys: LETICIA WALDEN Loc: [facility]ZCWM/NO/LCS ADMIN (Req'g Loc) Img Loc: [place]/CT Service: [place] [address] (Case [id number] COMPLETE) LDCT LUNG CANCER SCREENING (CT Detailed) CPT:06677 Reason for Study: LUNG CANCER SCREENING Clinical History: 53 TPY-Quit 2012 Prior chest imaging: CT scan the chest from May 25, 2022, May 07, 2021, April 29, 2020, April 18, 2019 and December 12, 2017. [facility] LDCT on 06/15/2023: LR 1 Report Status: Verified Date Reported: JUN 14, 2024 Date Verified: JUN 14, 2024 Fire Support Man E-Sig:/ES/MIRTA NAVAS JR Report: Study: Lung cancer [...] reviewed. Secondary computer-aided detection with post-processing from [employer] is used. The lack of intravenous contrast [...] Primary Interpreting Staff: MIRTA NAVAS JR, Radiologist (Fire Support Man) /MIRTA CASIANO JR [facility] Encounter Notes: All associated encounter [...] in doorway, 30 seconds x3 Access Code: [email or web address] URL: [email or web address] Date: 05/01/2024 Prepared by: PARUL [facility] Exercises - Seated Shoulder Flexion AAROM with [...] Signed: 06/05/2024 14:44 PAM JEFFERSON [facility]
--- OUTSIDE RECORDS SUMMARY | 2024-11-11 14:58 | XMS_ITS | Encounter Summary ---
Author Name [facility] [place] Organization [facility] [place] Address [address] [place] [address] Care Team Providers Care Production Maintenance Technician Name Role Phone LETICIA WALDEN Primary [...] PART B Apr 24, 2013 PART B [id number] [phone] KLEBER DYE RY PATIENT MEDICARE (WNR) MEDICARE () PART B Apr 24, 2013 PART B [id number] [facility] KLEBER DYE RY PATIENT MEDICARE (WNR) MEDICARE () PART B Apr 24, 2013 PART B [id number] KLEBER DYE RY PATIENT MEDICARE (WNR) MEDICARE () PART A November 23, 2011 PART A [id number] [phone] KLEBER DYE RY PATIENT MEDICARE (WNR) MEDICARE () PART A November 23, 2011 PART A [id number] KLEBER DYE RY PATIENT MEDICARE (WNR) MEDICARE () PART A November 23, 2011 PART A [id number] KLEBER DYE PATIENT [employer] PLAN G PLAN G Apr 24, 2013 PLAN G [id number] [phone] KLEBER DYE PATIENT [employer] PLAN G Apr 24, 2013 PLANG [id number] KLEBER DYE PATIENT [employer] PL[employer] G PLANG Apr 24, 2013 PLANG [id number] KLEBER DYE PATIENT Selected Encounter This section includes the information on record at [place] for the Encounter. Date/Time Encounter Type Encounter Description Reason Provider Source Apr 03, 2024 11:30 AM OFFICE O/P EST MOD 30 MIN OPTOMETRY ICD-10-CM L71.8 Other [facility] Gre[facility] Encounter Template Text not used by VA Assessments - Encounter Diagnoses This section includes the primary and secondary diagnoses documented for the Encounter. Date/Time Primary/Secondary Diagnosis Diagnosis Name Provider Source Apr 18, 2024 11:09 AM PRIMARY Other [facility] [place] [facility] Apr 18, 2024 11:09 AM SECONDARY Combined forms of age-related cataract, bilateral [facility] RE[facility] [place] [facility] Apr 18, 2024 11:09 AM SECONDARY Meibomian gland dysfnct left eye, upper and lower eyelids [facility] RE[facility] [place] [facility] Apr 18, 2024 11:09 AM SECONDARY Meibomian gland dysfnct right eye, upper and lower eyelids [facility] RE[facility] [place] [facility] Apr 18, 2024 11:09 AM SECONDARY Retinal artery branch occlusion, left eye [facility] RE[facility] [place] [facility] Apr 18, 2024 11:09 AM SECONDARY Retinal neovascularizati on, unspecified, left eye NH[facility] REYES [facility] [place] [facility] Apr 18, 2024 11:09 AM SECONDARY Rhinophyma NH[facility] REYES [place] [facility] [place] [facility] Plan of Treatment: Future Appointments (+ 6 months) and Future Tests (+/- 45 days) The Plan of Treatment section includes future care activities for the [facility] This section includes future appointments and future orders which are active, pending or scheduled. Future Appointments This section includes appointments that were scheduled to occur 6 months from the date of the Encounter, up to a maximum of 20 appointments. The data comes from all [place] treatment facilities. Appointment Date/Time Appointment Type Appointme nt Facility Name Apr 04, 2024 03:00 PM AMBULATORY - MEDICINE [facility] [place] [facility] Apr 06, 2024 10:30 AM AMBULATORY - REHAB MEDICIN E [facility] [place] [facility] Apr 11, 2024 09:30 AM AMBULATORY - MEDICINE [facility] [place] [facility] Apr 16, 2024 03:00 PM AMBULATORY - REHAB MEDICIN E [facility] [place] [facility] Apr 23, 2024 10:00 AM AMBULATORY - MEDICINE [facility] [place] [facility] Apr 24, 2024 10:00 AM AMBULATORY - REHAB MEDICIN E [facility] [place] [facility] Apr 27, 2024 10:15 AM AMBULATORY - MEDICINE [facility] [place] [facility] May 01, 2024 10:00 AM AMBULATORY - REHAB MEDICIN E [facility] [place] [facility] May 16, 2024 10:00 AM AMBULATORY - REHAB MEDICIN E [facility] [place] [facility] May 16, 2024 11:00 AM AMBULATORY - REHAB MEDICIN E [facility] [place] [facility] May 21, 2024 03:00 PM AMBULATORY - REHAB MEDICIN E [facility] [place] [facility] May 29, 2024 10:30 AM AMBULATORY - REHAB MEDICIN E [facility] [place] [facility] Jun 05, 2024 10:00 AM AMBULATORY - REHAB MEDICIN E [facility] [place] [facility] Jun 07, 2024 03:00 PM AMBULATORY - MEDICINE [facility] [place] [facility] Jun 12, 2024 10:00 AM AMBULATORY - REHAB MEDICIN E [facility] [place] [facility] Jun 14, 2024 10:30 AM AMBULATORY - NONE [facility] [place] [facility] Jun 15, 2024 02:00 PM AMBULATORY - MEDICINE [facility] [place] [facility] Jun 26, 2024 10:30 AM AMBULATORY - REHAB MEDICIN E [facility] [place] [facility] Jun 26, 2024 01:00 PM AMBULATORY - MEDICINE [facility] [place] [facility] Jul 03, 2024 10:30 AM AMBULAT[facility] Lab Results: +/- 30 days of the encounter This section includes the Chemistry and Hematology Lab Results on record with [place] for the patient. Radiology Reports and Pathology Reports are provided separately, in subsequent sections. Lab Results This section contains the Chemistry/Hematology Results that were resulted 30 days before or 30 daysafter the date of the Encounter. Date/Time Source Result Type Result - Unit Interpretation Reference Range Specimen Type Comment Apr 19, 2024 09:58 AM [facility] BASIC METABOLIC PANEL (fasting) SERUM Specime n Type: SERUM No comment entered. Ordering Provider: LETICIA WALDEN Report Released Date/Time: Apr 14, 2024 05:40 PM Reporting Lab: [facility] [address] [address] Performing Lab: [facility] [address] [address] UREA NITROGEN 17 mg/dL 7-25 GLUCOSE 103 mg/dL H 65-100 SODIUM 139 mmol/L 135-145 POTASSIUM 4.2 mmol/L 3.5-5.0 CHLORIDE 107 mmol/L 100-110 CO2 25 meq/L 20-30 CREATININE, Serum 1.05 mg/dL 0.50-1.40 eGFR(CKD-EPI 2020) 73 mL/min >60 Apr 19, 2024 09:58 AM [facility] LIVER FUNCTION SERUM Specimen Type: SERUM No comment entered. Ordering Provider: LETICIA WALDEN Report Released Date/Time: Apr 14, 2024 05:40 PM Reporting Lab: [facility] [address] [address] Performing Lab: [facility] [address] [address] PROTEIN,TOTAL 6.8 g/dL 6.0-8.3 ALBUMIN 3.8 g/dL 3.5-5.0 ALKALINE PHOSPHATASE 69 U/L 40-150 AST 17 U/L 5-34 ALT 27 U/L BILIRUBIN, TOTAL 0.6 mg/dL 0.2-1.2 Apr 19, 2024 09:58 AM [facility] LIPID PANEL FASTING SERUM Specimen Type: SERU M No comment entered. Ordering Provider: LETICIA WALDEN Report Released Date/Time: Apr 14, 2024 05:40 PM Reporting Lab: [facility] [address] [address] Performing Lab: [address] [address] CHOLESTEROL 120 mg/dL TRIGLYCERIDE 98 mg/dL 0-150 LDL calculated 63 mg/dL 0-129 CHOL/HDL 3.2 HDL CHOLESTEROL 37 mg/dL L 40-60 Apr 19, 2024 09:58 AM [facility] TSH SERUM Specimen Type: SERUM No comment entered. Ordering Provider: LETICIA WALDEN Report Released Date/Time: Apr 14, 2024 05:40 PM Reporting Lab: [facility] [address] [address] Performing Lab: [address] [address] TSH 2.19 u[IU]/mL 0.35-5.00 Apr 19, 2024 09:58 AM [facility] URIC ACID SERUM Specimen Type: SERUM No comment entered. Ordering Provider: LETICIA WALDEN Report Released Date/Time: Apr 14, 2024 05:40 PM Reporting [facility] [address] Performing Lab: [address] [address] URIC ACID 3.1 mg/dL L 3.5-7.2 Apr 19, 2024 09:58 AM [facility] CBC AND DIFF (AUTO) BLOOD Specimen Type: BLOO D No comment entered. Ordering Provider: LETICIA WALDEN Report Released Date/Time: Apr 14, 2024 05:40 PM Reporting Lab: [facility] [address] [address] Performing Lab: [facility] [address] [address] WBC 6.75 10*3/uL 4.50-11.00 RBC 3.99 10*6/uL [...] Apr 14, 2024 05:40 PM Reporting Lab: [facility] [address] [address] Performing Lab: [facility] [address] [address] UA COLOR Light-Yellow Yellow UA APPEARANCE Clear [...] took place. Date/Time Current Smoking Status Comment [facility] Apr 13, 2023 11:00 AM VA-TOBACCO FOR[facility]ER [facility] Tobacco Use History This section includes a history of the smoking, or tobacco-related health factors, that were collected on or before the date of the Encounter. The data comes from the [place] facility where the Encounter took place. Date/Time Smoking Status/Tobac co Use Comment Facility Apr 13, 2023 11:00 AM VA-TOBACCO QUIT 5 TO < 15 YRS [facility] [place] [facility] Apr 14, 2022 01:30 PM VA-TOBACCO FORMER USER [facility] [place] [facility] Apr 14, 2022 01:30 PM VA-TOBACCO QUIT 5 TO < 15 YRS [facility] [place] [facility] Apr 10, 2021 10:00 AM VA-TOBACCO FORMER USER [facility] [place] [facility] Apr 10, 2021 10:00 AM VA-TOBACCO QUIT 5 TO < 15 YRS [facility] [place] [facility] Apr 02, 2020 10:30 AM VA-TOBACCO FORMER USER [facility] [place] [facility] Apr 02, 2020 10:30 AM VA-TOBACCO QUIT 5 TO < 15 YRS [facility] [place] [facility] Sep 29, 2018 08:52 AM VA-TOBACCO FORMER USER [facility] [place] [facility] Sep 29, 2018 08:52 AM VA-TOBACCO QUIT 15 YRS OR MORE [facility] [place] [facility] December 21, 2017 12:27 PM QUIT TOBACCO USE 1-7 YEARS AGO 5 or 6 years ago [facility] [place] [facility] May 19, 2017 10:21 AM QUIT TOBACCO USE 1-7 YEARS AGO [facility] [place] [facility] Aug 19, 2016 09:56 AM QUIT TOBACCO USE 1-7 YEARS AGO [facility] [place] [facility] Feb 12, 2016 11:34 AM QUIT TOBACCO USE 1-7 YEARS AGO [facility] Aug 08, 2015 03:04 PM QUIT TOBACCO USE 1-7 YEARS AGO [facility] Aug 08, 2015 03:04 PM QUIT TOBACCO USE IN PAST YEAR pt states he stooped smmoking in the past yr. [facility] Advance Directives: All historical and current [...] 20, 2012 ADVANCE DIRECTIVE DISCUSSION MONIKA IZAGUIRRE [facility] [place] Radiology Reports: +/- 30 days of the [...] CERVICAL, 4 OR 5 VIEWS: SANCHO DYE [id number] -[phone] M Exm Date: MAR 09, 2024@09:52 Req Phys: OSCARBRYANNA MAXIMO Pat Loc: CWM/NO/SICK CALL PA (Req'g Loc Img Loc: NHM/BUILDING 1 Service: Unknown [facility] NIGEL GARZA [id number] (Case [id number] COMPLETE) SPINE CERVICAL, 4 OR 5 VIEWS (RAD Detailed) CPT:00607 Reason for Study: pain with radiating features to the left shoulder Clinical History: Report Status: Verified Date Reported: MAR 09, 2024 Date Verified: MAR 09, 2024 Wood 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 Date/Time Encounter Note(s) Provider Source Apr 03, 2024 11:29 AM OPTOMETRY NOTE: LOCAL TITLE: OPTOMETRY NOTE STANDARD TITLE: OPTOMETRY NOTE DATE OF NOTE: APR 03, 2024@11:29 ENTRY DATE: APR 03, 2024@11:29:16 AUTHOR: JUANITA REYES COSIGNER: URGENCY: STATUS: COMPLETED Active problems - Computerized Problem List is the source for the followin. Shoulder pain 2. Cerebral infarction 3. Exposure to potentially hazardous substance 4. Benign Prostatic Hypertrophy without Outflow Obstruction ([facility] [id number]) 5. Impaired fasting glucose 6. Chronic dermatitis 7. AF- Atrial Fibrillation ([facility] [id number]) 8. Coronary artery disease 9. Essential hypertension 10. Hypercholesterolemia 11. Gout 12. Gastro-esophageal reflux disease 13. History of colonic polyp 14. Erectile dysfunction Active Outpatient Medications (including Supplies): Active Outpatient Medications Status 1) ACETAMINOPHEN 325MG TAB TAKE TWO TABLETS BY MOUTH ACTIVE FOUR TIMES DAILY NEEDED 2) ALLOPURINOL 300MG TAB TAKE ONE TABLET BY MOUTH EVERY ACTIVE DAY FOR GOUT 3) APIXABAN 5MG TAB TAKE ONE TABLET BY MOUTH TWICE DAILY ACTIVE (S) 4) ATORVASTATIN CALCIUM 40MG TAB TAKE ONE TABLET BY ACTIVE MOUTH AT BEDTIME FOR CHOLESTEROL 5) CILOSTAZOL 50MG TAB TAKE ONE TABLET BY MOUTH TWICE ACTIVE (S) DAILY -TAKE 30 MINUTES BEFORE MEALS OR TWO HOURS AFTER MEALS 6) CLOPIDOGREL BISULFATE 75MG TAB TAKE ONE TABLET BY ACTIVE MOUTH EVERY DAY 7) CYCLOBENZAPRINE HCL 10MG TAB TAKE ONE TABLET BY MOUTH ACTIVE THREE TIMES DAILY NEEDED 8) DICLOFENAC NA 1% TOP GEL APPLY 2 GRAMS TOPICALLY FOUR ACTIVE TIMES A DAY FOR JOINT PAIN FOR OSTEOARTHRITIS - USE DOSING CARD PROVIDED IN BOX 9) LOSARTAN 100MG TAB TAKE ONE TABLET BY MOUTH ONCE ACTIVE DAILY FOR BLOOD PRESSURE/HEART 10) METOPROLOL SUCCINATE 100MG SA TAB TAKE ONE TABLET BY ACTIVE MOUTH ONCE DAILY FOR BLOOD PRESSURE/HEART 11) MULTIVITAMIN/MINERALS CAP/TAB TAKE 1 TABLET BY MOUTH ACTIVE EVERY DAY FOR VITAMIN SUPPLEMENTATION 12) PANTOPRAZOLE NA 20MG EC TAB TAKE ONE TABLET BY MOUTH ACTIVE EVERY DAY 13) TAMSULOSIN HCL 0.4MG CAP TAKE ONE CAPSULE BY 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 This 78 year old MALE is seen today for follow-up care. 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 Additionally has a history of bilateral cataracts as well as facial and ocular rosacea. His last exam was here in January 12, 2024. He returns today for repeat dilated examination for ongoing surveillance of questionable NVD left eye after inferior branch retinal artery occlusion. Overall he feels his vision is stable since his last exam. Chief Complaint: Denies any interval visual or ocular changes Vision: With 20/20-2 right eye 20/25+2 left eye with eccentric gaze Without Correction Pupils, EOMS, confrontation bee are all done and shows round reactive pupils without afferent pupillary defect with full extraocular motility and full confrontation bee to finger counting right eye superior constriction left eye consistent with previous inferior branch retinal artery occlusion Current Wear: OD: OS: Refraction: OD: OS: Tonometry: 12 OD 11 OS Time: 11:27 AM dilated with tropicamide 1% each eye after dilation warning given and verbal consent obtained PreTreatment IOP: OD OS Pachymetry: Rosacea facies with rhinophyma Anterior segment: Lids: Dermatochalasis, ptosis with lower lid bags and 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 Nuclear sclerotic and trace cortical changes each eye not visually significant at present. Status post inferior branch retinal artery occlusion with questionable early NVE 5:00 left eye. Retinal photos taken now which showed documented increased in the area of lacy blood vessels 5:00 optic nerve left eye. He is agreeable to repeat retinal evaluation. Will enter new community care consult now and patient will contact [facility] to schedule follow-up. He understands his current community care consult with [facility] expires in May Plan: Patient education as noted above retinal photos taken now. Discussed findings with patient who is agreeable to repeat evaluation at [facility]. Return here in 6 months or sooner if need be. Education: Discussed questionable development of NVD left eye with need for repeat retinal consultation. Given contact information for [facility] now and he will call to schedule in the next 4 to 6 weeks. Return to Clinic 6 months here or sooner if need be. Ophthalmic medication reconciliation: He is currently not taking or prescribed any ocular medications. Total time spent reviewing previous records, examining patient. Counseling patient and entering orders 32 minutes Medication Reconciliation: Outpatient: Has the patient been taking medications as documented in the EMLR? YES: The patient has been taking medications as documented in the EMLR. Essential Medication List for Review used to complete this medication reconciliation. INCLUDED IN THIS LIST: Alphabetical list of active outpatient prescriptions dispensed from this VA (local) and dispensed from another AL or DoD facility (remote) as well as [...] whether with a VA or non-VA provider. JLV Link Data on this list may not be complete. Please check JLV. Allergies/ADRs (Tool #5) FACILITY ALLERGY/ADR -------- [facility] NO KNOWN ALLERGIES [facility] [place] [facility] No Known Allergies Med Recon [facility] (Tool #1) INCLUDED IN THIS LIST: Alphabetical list of active outpatient prescriptions dispensed from this AL (local) and dispensed from another AL or [facility] facility (remote) as well as inpatient orders (local pending and active), local clinic medications, locally documented non-VA medications, and local prescriptions that have or been discontinued in the past 90 days. Non-VA Meds Last Documented On: December 13, 2016 NOTE The display of VA prescriptions dispensed from another AL or [facility] facility (remote) is limited to active outpatient prescription entries matched to National Drug File at the originating site and may not include some items such as investigational drugs, compounds, etc. NOT INCLUDED IN THIS LIST: Medications self-entered by the patient into personal health records (i.e. [employer]) are NOT included in this list. Non-VA medications documented outside this AL, remote inpatient orders (regardless of status) and remote clinic medications are NOT included in this list. The patient and provider must always discuss medications the patient is taking, regardless of where the medication was dispensed or obtained. OUTPT ACETAMINOPHEN 325MG TAB (Status = Active) TAKE TWO TABLETS BY MOUTH FOUR TIMES DAILY NEEDED Rx# [id number] Last Released: 02/07/24 Qty/Days Supply: Rx Expiration Date: 09/21/24 Refills Remainin Indication: FOR PAIN OUTPT ALLOPURINOL 300MG TAB (Status = Active) TAKE ONE TABLET BY MOUTH EVERY DAY FOR GOUT Rx# [id number] Last Released: 12/22/23 Qty/Days Supply: 90 Rx Expiration Date: 10/09/24 Refills Remainin OUTPT APIXABAN 5MG TAB (Status = Active/Suspended) TAKE ONE TABLET BY MOUTH TWICE DAILY Rx# [id number] Last Released: 02/01/24 Qty/Days Supply: 180 Rx Expiration Date: 07/31/24 Refills Remainin OUTPT ATORVASTATIN CALCIUM 40MG TAB (Status = Active) TAKE ONE TABLET BY MOUTH AT BEDTIME FOR CHOLESTEROL Rx# [id number] Last Released: 01/23/24 Qty/Days Supply: 90 Rx Expiration Date: 07/22/24 Refills Remainin OUTPT CILOSTAZOL 50MG TAB (Status = Active/Suspended) TAKE ONE TABLET BY MOUTH TWICE DAILY -TAKE 30 MINUTES BEFORE MEALS OR TWO HOURS AFTER MEALS Rx# [id number] Last Released: 04/02/24 Qty/Days Supply: 180/ Rx Expiration Date: 10/09/24 Refills Remainin OUTPT CLOPIDOGREL BISULFATE 75MG TAB (Status = Active) TAKE ONE TABLET BY MOUTH EVERY DAY Rx# [id number] Last Released: 01/11/24 Qty/Days Supply: 90 Rx Expiration Date: 10/09/24 Refills Remainin OUTPT CYCLOBENZAPRINE HCL 10MG TAB (Status = Active) TAKE ONE TABLET BY MOUTH THREE TIMES DAILY NEEDED Rx# [id number] Last Released: 11/01/23 Qty/Days Supply: 90 Rx Expiration Date: 09/21/24 Refills Remainin Indication: FOR MUSCLE SPASM OUTPT DICLOFENAC NA 1% TOP GEL (Status = Active) APPLY 2 GRAMS TOPICALLY FOUR TIMES A DAY FOR JOINT PAIN FOR OSTEOARTHRITIS - USE DOSING CARD PROVIDED IN BOX Rx# [id number] Last Released: 03/06/24 Qty/Days Supply: 10030 Rx Expiration Date: 04/05/24 Refills Remainin Indication: FOR JOINT PAIN OUTPT LOSARTAN 100MG TAB (Status = Active) TAKE ONE TABLET BY MOUTH ONCE DAILY FOR BLOOD PRESSURE/HEART Rx# [id number] Last Released: 12/22/23 Qty/Days Supply: 90/ Rx Expiration Date: 10/09/24 Refills Remainin OUTPT METOPROLOL SUCCINATE 100MG SA TAB (Status = Active) TAKE ONE TABLET BY MOUTH ONCE DAILY FOR BLOOD PRESSURE/HEART Rx# [id number] Last Released: 12/22/23 Qty/Days Supply: Rx Expiration Date: 12/20/24 Refills Remainin OUTPT MULTIVITAMIN/MINERALS CAP/TAB (Status = Active) TAKE 1 TABLET BY MOUTH EVERY DAY FOR VITAMIN SUPPLEMENTATION Rx# [id number] Last Released: 04/02/24 Qty/Days Supply: Rx Expiration Date: 08/18/24 Refills Remainin OUTPT PANTOPRAZOLE NA 20MG EC TAB (Status = Active) TAKE ONE TABLET BY MOUTH EVERY DAY Rx# [id number] Last Released: 01/11/24 Qty/Days Supply: Rx Expiration Date: 08/08/24 Refills Remainin OUTPT TAMSULOSIN HCL 0.4MG CAP (Status = Active) TAKE ONE CAPSULE BY MOUTH AT BEDTIME FOR ENLARGED PROSTATE Rx# [id number] Last Released: 01/19/24 Qty/Days Supply: Rx Expiration Date: 08/08/24 Refills Remainin Indication: FOR ENLARGED PROSTATE SUPPLIES Declines printed copy of medication list now. /glenis/ Juanita Reyes OD CHIEF OF OPTOMETRY Signed: 04/04/2024 09:53 JUANITA REYES [facility]
--- OUTSIDE RECORDS SUMMARY | 2024-11-11 14:58 | XMS_ITS | Encounter Summary ---
Author Name [facility] [place] [facility] [place] [facility] [place] Address [address] [place] [address] Care Team Providers Care Sales And Marketing Vice President Name Role Phone LETICIA WALDEN Primary Care [...] PART B Apr 24, 2013 PART B [id number] KLEBER DYE RY PATIENT MEDICARE (WNR) MEDICARE () PART B Apr 24, 2013 PART B [id number] [facility] [phone] [id number] KLEBER DYE RY PATIENT MEDICARE (WNR) MEDICARE () PART B Apr 24, 2013 PART B [id number] [phone] [id number] KLEBER DYE RY PATIENT MEDICARE (WNR) MEDICARE () PART A November 23, 2011 PART A [id number] KLEBER DYE RY PATIENT MEDICARE (WNR) MEDICARE () PART A November 23, 2011 PART A [id number] KLEBER DYE RY PATIENT MEDICARE (WNR) MEDICARE () PART A November 23, 2011 PART A [id number] KLEBER DYE PATIENT [employer] [place] [employer] PLAN G PLAN G Apr 24, 2013 PLAN G [id number] KLEBER DYE RY PATIENT [employer] [place] [employer] PL[employer] G PLANG Apr 24, 2013 PLANG [id number] KLEBER DYE PATIENT [employer] [place] [employer] PL[employer] G Apr 24, 2013 PLANG [id number] KLEBER DYE PATIENT Selected Encounter This section includes the information on record at [place] for the Encounter. 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 Date/Time Primary/Secondary Diagnosis Diagnosis Name Provider Source Feb 27, 2024 02:14 PM PRIMARY Cervicalgia [facility] Feb 27, 2024 02:14 PM SECONDARY Pain in right forearm MICHELLE TAVARES [facility] [place] [facility] Plan of Treatment: Future Appointments (+ 6 months) and Future Tests (+/- 45 days) The Plan of Treatment section includes future care activities for the patient from all [place] treatmentfacilities. This section includes future appointments and future orders which are active, pending or scheduled. Future Appointments This section includes appointments that were scheduled to occur 6 months from the date of the Encounter, up to a maximum of 20 appointments. The data comes from all [place] treatment facilities. Appointment Date/Time Appointment Type Appointme nt Facility Name Feb 06, 2024 02:30 PM AMBULATORY - MEDICINE [facility] [place] [facility] Feb 23, 2024 09:30 AM AM[place]ULATORY - MEDICINE [place] [facility] [place] [facility] Feb 24, 2024 09:00 AM AMBULATORY - MEDICINE [facility] [place] [facility] Feb 24, 2024 11:30 AM AMBULATORY - [place]HAB [place]IN [place] [facility] [place] [facility] Mar 06, 2024 11:00 AM AM[facility]UL[facility]ORY - [facility] [facility] [place] [facility] Mar 06, 2024 01:00 PM AM[facility]ATORY [facility] MEDICINE [facility] [place] [facility] Mar 06, 2024 02:30 PM [facility]ICINE [facility] [place] [facility] Mar 09, 2024 10:30 AM AM[facility]ATORY [facility] MEDICINE [facility] [place] [facility] Mar 09, 2024 01:00 PM AM[facility]ULATORY [facility] MEDICINE [place] [facility] [place] [facility] Mar 13, 2024 10:30 AM AMBULATORY - [facility]IN [facility] [place] [facility] Mar 14, 2024 02:30 PM AMBULATORY - REHAB MEDICIN E [place] [facility] [place] [facility] Mar 16, 2024 10:30 AM AMBULATORY [facility] MEDICINE [place] [facility] [place] [facility] Mar 20, 2024 09:30 AM AM[facility]ULATORY [facility] MEDICINE [facility] [place] [facility] Mar 23, 2024 10:30 AM AMBULATORY [facility] MEDICINE [facility] [place] [facility] Mar 29, 2024 11:30 AM AMBULATORY [facility] MEDICINE [facility] [place] [facility] Mar 30, 2024 09:00 AM AMBULATORY - MEDICINE [facility] [place] [facility] Apr 03, 2024 11:30 AM AMBULATORY - MEDICINE [facility] [place] [facility] Apr 03, 2024 12:15 PM AMBULATORY - MEDICINE [facility] [place] [facility] Apr 04, 2024 03:00 PM AMBULATORY - MEDICINE [facility] [place] [facility] Apr 06, 2024 10:30 AM AMBULATORY - REHAB MEDICIN [facility] [place] [facility] Social History: Smoking Status (Most current) and Tobacco Use (All prior to encounter date) This section includes the most current, and the historical, smoking and tobacco- related health factors from the [facility] facility where the Encounter took place. Current Smoking Status This section includes the most current smoking, or tobacco-related health factor, from the [place] facility where the Encounter took place. Date/Time Current Smoking Status Ricardo bryson Apr 13, 2023 11:00 AM VA-TOBACCO FORMER USER [facility] [place] [facility] Tobacco Use History This section includes a history of the smoking, or tobacco-related health factors, that were collected on or before the date of the Encounter. The data comes from the [place] facility where the Encounter took place. Date/Time Smoking Status/Tobac co Use Comment Facility Apr 13, 2023 11:00 AM VA-TOBACCO QUIT 5 TO < 15 YRS [place] [facility] [place] [facility] Apr 14, 2022 01:30 PM VA-TOBACCO FORMER USER [facility] [place] [facility] Apr 14, 2022 01:30 PM VA-TOBACCO QUIT 5 TO < 15 YRS [place] [facility] [place] [facility] Apr 10, 2021 10:00 AM VA-TOBACCO FORMER USER [place] [facility] [place] [facility] Apr 10, 2021 10:00 AM VA-TOBACCO QUIT 5 TO < 15 YRS [place] [facility] [place] [facility] Apr 02, 2020 10:30 AM VA-TOBACCO FORMER USER [place] [facility] [place] [facility] Apr 02, 2020 10:30 AM VA-TOBACCO QUIT 5 TO < 15 YRS [place] [facility] [place] [facility] Sep 29, 2018 08:52 AM VA-TOBACCO FORMER USER [place] [facility] [place] [facility] Sep 29, 2018 08:52 AM VA-TOBACCO QUIT 15 YRS OR MORE [facility] [place] [facility] December 21, 2017 12:27 PM QUIT TOBACCO USE 1-7 YEARS AGO 5 or 6 years ago [facility] [facility] May 19, 2017 10:21 AM QUIT TOBACCO USE 1-7 YEARS AGO [facility] [place] [facility] Aug 19, 2016 09:56 AM QUIT TOBACCO USE 1-7 YEARS AGO [facility] [place] [facility] Feb 12, 2016 11:34 AM QUIT TOBACCO USE 1-7 YEARS AGO [facility] [place] [facility] Aug 08, 2015 03:04 PM QUIT TOBACCO USE 1-7 YEARS AGO [place] [facility] [place] [facility] Aug 08, 2015 03:04 PM QUIT TOBACCO USE IN PAST YEAR pt states he stooped smmoking in the past yr. [place] [facility] [place] [facility] Advance Directives: All historical and current Section Date Range: From patient's date of to the date document was created. This section includes ALL of a patient's completed or amended VA Advance and Rescinded Directives. The entries below indicate that a directive exists for the patient, but an actual copy is not included with this document. The data comes from all [place] facilities. Date Advance Directives Provider Source Jun 20, 2012 ADVANCE DIRECTIVE DISCUSSION MONIKA IZAGUIRRE [facility] Encounter Notes: All associated encounter notes This section contains the clinical notes associated to the Encounter. Date/Time Encounter Note(s) Provider Source Jan 30, 2024 10:22 AM CHIROPRACTIC NOTE: LOCAL TITLE: CHIROPRACTOR PROGRESS NOTE STANDARD TITLE: CHIROPRACTIC NOTE DATE OF NOTE: JAN 30, 2024@10:22 ENTRY DATE: JAN 30, 2024@10:22:40 AUTHOR: MICHELLE TAVARES COSIGNER: URGENCY: STATUS: COMPLETED [...] 06/24/2023 LETICIA WALDEN AF- Atrial Fibrillation (SCT [id number] 12/23/2017 LETICIA WALDEN Coronary artery disease I25.10, [...] R shoulder Takes anti-coagulants Patient [facility] [place] [facility] with report that he felt pretty good but he C/O pain in his R forearm. He believes that scooping out frozen ice cream exacerbated it. He tried to do the exercises from OT that also hurt his arm. Patient requests another consult to OT He also C/O pain in left interscapular area and neck pain. The neck pain had subsided but also flared up recently. Vet states that it presents w R rotation but is still better than at initial visit. He rates the pain on the NPRS [...] different bed. He just flew down to [place]. HX; During service natural falls down but [...] of cortisone which alleviated the sx. Prior manager urgent care: yes for R shoulder and neck [...] stretching as per palpation Objectives 12/08/23: Tenderness and hypertonicity C/sp, bilat interscap,upper trapezius Tenderness over R extensor tendon and muscle Ortho tests Neg Restrictions cervical Treatment: Corrective/Active Manual therapy, 10 min cervical, prone and R forearm CMT low force AT cervical Treatment carried out today and well tolerated with relief expressed. The prognosis, at this time, is fair to good. Plan: Consult OT; FU 1 weeks Short term goals include [...] core stability, balance, and pain modulation. Visit 9 F/U 4 weekly Seek urgent care as needed. CMT: chiropractic manipulative therapy SMT: Spinal Manipulative Therapy F/D: Flexion Distraction MFR: Myofascial Release S-I: Sacroiliac MFTP: Myofascial Trigger Point NRS: Numeric Rating Scale N/T: Numbness/Tingling PIR: Post isometric relaxation /es/ MICHELLE TAVARES D.C. CHIROPRACTOR Signed: 01/30/2024 11:39 MICHELLE TAVARES [facility]
--- OUTSIDE RECORDS SUMMARY | 2024-11-11 14:58 | XMS_ITS | Encounter Summary ---
Author Name [facility] [place] [facility] [place] [facility] [place] Address [address] [place] [address] Care Team Providers Care Pallet Stone Positioner Name Role Phone LETICIA WALDEN Primary Care [...] PART B Apr 24, 2013 PART B [id number] KLEBER DYE RY PATIENT MEDICARE (WNR) MEDICARE () PART B Apr 24, 2013 PART B [id number] KLEBER DYE RY PATIENT MEDICARE (WNR) MEDICARE () PART B Apr 24, 2013 PART B [id number] [id number] KLEBER DYE RY PATIENT MEDICARE (WNR) MEDICARE () PART A November 23, 2011 PART A [id number] KLEBER DYE RY PATIENT MEDICARE (WNR) MEDICARE () PART A November 23, 2011 PART A [id number] KLEBER DYE RY PATIENT MEDICARE (WNR) MEDICARE () PART A November 23, 2011 PART A [id number] KLEBER DYE PATIENT [employer] [place] [employer] PLAN G PLAN G Apr 24, 2013 PLAN G [id number] KLEBER DYE PATIENT [employer] [place] [employer] PLAN G PLANG Apr 24, 2013 PLANG [id number] KLEBER DYE PATIENT [employer] [place] [employer] PLAN G Apr 24, 2013 PLANG [id number] KLEBER DYE PATIENT Selected Encounter This [...] Pain in left shoulder BRAULIO JEFFERSONLIE E [place] [facility] [facility] Plan of Treatment: Future Appointments [...] REHAB MEDICIN E [place] [facility] [facility] Jul 12, 2024 10:30 AM AMBULATORY - MEDICINE IN [place] [facility] [place] [facility] Jul 24, 2024 10:00 AM AMBULATORY - REHAB MEDICIN E [place] [facility] [place] [facility] Aug 09, 2024 10:00 AM AMBULATORY - MEDICINE IN [place] [facility] [place] [facility] Aug 10, 2024 10:00 AM AMBULATORY - REHAB MEDICIN E [place] [facility] [place] [facility] Aug 14, 2024 11:00 AM AMBULATORY - MEDICINE [place] [facility] [place] [facility] Aug 27, 2024 11:00 AM AMBULATORY - NONE [place] [facility] [place] [facility] Aug 28, 2024 10:30 AM AMBULATORY - REHAB MEDICIN E [place] [facility] [place] [facility] Sep 12, 2024 01:00 PM AMBULATORY - REHAB MEDICIN E [place] [facility] [place] [facility] Oct 04, 2024 03:00 PM AMBULATORY - MEDICINE [place] [facility] [place] [facility] Oct 16, 2024 10:00 AM AMBULATORY - MEDICINE [place] [facility] [place] [facility] December 12, 2024 11:30 AM AMBULATORY - MEDICINE [place] [facility] [place] [facility] Dec 25, 2024 01:00 PM AMBULATORY - MEDICINE [place] [facility] [place] [facility] Jan 01, 2025 09:00 AM AMBULATORY - MEDICINE [facility] [place] [facility] Social History: Smoking Status (Most [...] took place. Date/Time Current Smoking Status Comment [facility] Apr 23, 2024 10:00 AM VA-TOBACCO FORMER USER [facility] [place] [facility] Tobacco Use History This section includes a history of the smoking, or tobacco-related health factors, that were collected on or before the date of the Encounter. The data comes from the [place] facility where the Encounter took place. Date/Time Smoking Status/Tobac co Use Comment Facility Apr 23, 2024 10:00 AM VA-TOBACCO QUIT 5 TO < 15 YRS [facility] [place] [facility] Apr 13, 2023 11:00 AM VA-TOBACCO FORMER USER [facility] [place] [facility] Apr 13, 2023 11:00 AM VA-TOBACCO QUIT 5 TO < 15 YRS [place] [facility] [place] [facility] Apr 14, 2022 01:30 PM VA-TOBACCO FORMER USER [facility] [place] [facility] Apr 14, 2022 01:30 PM VA-TOBACCO QUIT 5 TO < 15 YRS [place] [facility] [place] [facility] Apr 10, 2021 10:00 AM VA-TOBACCO FORMER USER [facility] [place] [facility] Apr 10, 2021 10:00 AM VA-TOBACCO QUIT 5 TO < 15 YRS IN [facility] [facility] Apr 02, 2020 10:30 AM VA-TOBACCO FORMER USER IN [facility] [place] [facility] Apr 02, 2020 10:30 AM VA-TOBACCO QUIT 5 TO < 15 YRS IN [facility] [place] [facility] Sep 29, 2018 08:52 AM VA-TOBACCO FORMER USER IN [facility] [place] [facility] Sep 29, 2018 08:52 AM VA-TOBACCO QUIT 15 YRS OR MORE IN [facility] [place] [facility] December 21, 2017 12:27 PM QUIT TOBACCO USE 1-7 YEARS AGO 5 or 6 years ago [place] [facility] [place] [facility] May 19, 2017 10:21 AM QUIT TOBACCO USE 1-7 YEARS AGO IN [facility] [place] [facility] Aug 19, 2016 09:56 AM QUIT TOBACCO USE 1-7 YEARS AGO IN [facility] [place] [facility] Feb 12, 2016 11:34 AM QUIT TOBACCO USE 1-7 YEARS AGO IN [facility] [place] [facility] Aug 08, 2015 03:04 PM QUIT TOBACCO USE 1-7 YEARS AGO IN [facility] [place] [facility] Aug 08, 2015 03:04 PM QUIT TOBACCO USE IN PAST YEAR pt states he stooped smmoking in the past yr. [place] [facility] [place] [facility] Advance Directives: All historical and [...] AM LDCT LUNG CANCER SCREENING: SANCHO DYE [id number] -[id number] M Exm Date: JUN 14, 2024@10:20 Req Phys: LETICIA WALDEN Pat Loc: [facility]/NO/LCS ADMIN (Req'g Loc) Img Loc: [facility]/CT Service: [facility] [place] [address] (Case 239 COMPLETE) LDCT LUNG CANCER SCREENING (CT Detailed) CPT:61146 Reason for Study: LUNG CANCER SCREENING Clinical History: 53 TPY-Quit 2012 Prior chest imaging: CT scan the chest from May 25, 2022, May 07, 2021, April 29, 2020, April 18, 2019 and December 12, 2017. LCS LDCT on 06/15/2023: LR 1 Report Status: Verified Date Reported: JUN 14, 2024 Date Verified: JUN 14, 2024 Anchor Operator E-Sig:/ES/MIRTA NAVAS JR Report: Study: Lung [...] reviewed. Secondary computer-aided detection with post-processing from [employer] is used. The lack of intravenous contrast [...] Primary Interpreting Staff: MIRTA NAVAS JR, Radiologist (Anchor Operator) /MIRTA CASIANO JR [facility] Encounter Notes: All associated encounter notes This [...] ER w/ green band, 2x10 Access Code: [email or web address] URL: [email or web address] Date: 06/26/2024 Prepared by: PARUL [facility] Exercises - Seated Shoulder Flexion AAROM [...] Signed: 07/03/2024 12:26 PAM JEFFERSON [facility]
--- OUTSIDE RECORDS SUMMARY | 2024-11-11 14:58 | XMS_ITS ---
Author Name [facility] [place] Address [address] [place] [address] Care Team Providers Care Cooper Helper Name Role Phone LETICIA WALDEN Primary [...] PART B Apr 24, 2013 PART B [id number] [id number] KLEBER DYE RY PATIENT MEDICARE (WNR) MEDICARE () PART B Apr 24, 2013 PART B [id number] KLEBER DYE RY PATIENT MEDICARE (WNR) MEDICARE () PART B Apr 24, 2013 PART B [id number] [id number] KLEBER DYE RY PATIENT MEDICARE (WNR) MEDICARE () PART A November 23, 2011 PART A [id number] KLEBER DYE RY PATIENT MEDICARE (WNR) MEDICARE () PART A November 23, 2011 PART A [id number] KLEBER DYE RY PATIENT MEDICARE (WNR) MEDICARE () PART A November 23, 2011 PART A [id number] KLEBER DYE PATIENT MUTUAL OF [place] MED[employer] PLAN G PLAN G Apr 24, 2013 PLAN G [id number] KLEBER DYE PATIENT MUTUAL OF [place] [employer] PLAN G PLANG Apr 24, 2013 PLANG [id number] KLEBER DYE PATIENT [employer] OF [place] [employer] PLAN G Apr 24, 2013 PLANG [id number] KLEBER DYE PATIENT Selected Encounter This section includes the information on record at [place] for the Encounter. Date/Time Encounter Type Encounter Description Reason Provider Source Mar 30, 2024 09:00 AM MANUAL THERAPY 1/> [facility] COPYRIGHT CLERK ICD-10-CM M54.2 Cervicalgia MICHELLE TAVARES Greta Encounter Template Text not used by [place] Assessments - Encounter Diagnoses This section includes the primary and secondary diagnoses documented for the Encounter. Date/Time Primary/Secondary Diagnosis Diagnosis Name Provider Source Apr 22, 2024 06:45 AM PRIMARY CervicalMICHELLE Hand [facility] [place] [facility] Plan of Treatment: Future Appointments (+ 6 months) and Future Tests (+/- 45 days) The Plan of Treatment section includes future care activities for the patient from [facility] [place] [facility]. This section includes future appointments and future orders which are active, pending or scheduled. Future Appointments This section includes appointments that were scheduled to occur 6 months from the date of the Encounter, up to a maximum of 20 appointments. The data comes from all [place] treatment facilities. Appointment Date/Time Appointment Type Appointme nt Facility Name Apr 03, 2024 11:30 AM AMBULATORY - MEDICINE [facility] [place] [facility] Apr 03, 2024 12:15 PM AMBULATORY - MEDICINE [facility] [place] [facility] Apr 04, 2024 03:00 PM AMBULATORY - MEDICINE [place] C [facility] [place] [facility] Apr 06, 2024 10:30 AM AMBULATORY - REHAB MEDICIN E [place] [facility] [place] [facility] Apr 11, 2024 09:30 AM AMBULATORY - MEDICINE [facility] [place] [place] [facility] Apr 16, 2024 03:00 PM AMBULATORY - REHAB MEDICIN E [facility] [place] [facility] Apr 23, 2024 10:00 AM AMBULATORY - MEDICINE [facility] [place] [facility] Apr 24, 2024 10:00 AM AMBULATORY - REHAB MEDICIN E [facility] [place] [facility] Apr 27, 2024 10:15 AM AMBULATORY [facility] MEDICINE [facility] [place] [facility] May 01, 2024 10:00 AM AMBULATORY - REHAB MEDICIN E [facility] [place] [facility] May 16, 2024 10:00 AM AMBULATORY - REHAB MEDICIN E [facility] [place] [facility] May 16, 2024 11:00 AM AMBULATORY - REHAB MEDICIN E [facility] [place] [facility] May 21, 2024 03:00 PM AMBULATORY - REHAB MEDICIN E [facility] [place] [facility] May 29, 2024 10:30 AM AMBULATORY - REHAB MEDICIN E [facility] [place] [facility] Jun 05, 2024 10:00 AM AMBULATORY - REHAB MEDICIN E [facility] [place] [facility] Jun 07, 2024 03:00 PM AMBULATORY - MEDICINE [facility] [place] [facility] Jun 12, 2024 10:00 AM AMBULATORY - REHAB MEDICIN E [facility] [place] [facility] Jun 14, 2024 10:30 AM AMBULATORY - NONE [facility] [place] [facility] Jun 15, 2024 02:00 PM AMBULATORY - MEDICINE [facility] C [facility] [place] [facility] Jun 26, 2024 10:30 AM AMBULATORY - REHAB MEDICIN E [facility] [place] [facility] Lab Results: +/- 30 days [...] 2024 09:58 AM [facility] [place] [facility] BASIC METABOLIC PANEL (fasting) SERUM Specime n Type: SERUM No comment entered. Ordering Provider: LETICIA WALDEN Report Released Date/Time: Apr 14, 2024 05:40 PM Reporting Lab: [address] [address] Performing Lab: [address] [address] UREA NITROGEN 17 mg/dL 7-25 GLUCOSE 103 mg/dL H 65-100 SODIUM 139 mmol/L 135-145 POTASSIUM 4.2 mmol/L 3.5-5.0 CHLORIDE 107 mmol/L 100-110 CO2 25 meq/L 20-30 CREATININE, Serum 1.05 mg/dL 0.50-1.40 eGFR(CKD-EPI 2020) 73 mL/min >60 Apr 19, 2024 09:58 AM [facility] LIVER FUNCTION SERUM Specimen Type: SERUM No comment entered. Ordering Provider: LETICIA WALDEN Report Released Date/Time: Apr 14, 2024 05:40 PM Reporting Lab: [address] [address] Performing Lab: [address] [address] PROTEIN,TOTAL 6.8 g/dL 6.0-8.3 ALBUMIN 3.8 g/dL 3.5-5.0 ALKALINE PHOSPHATASE 69 U/L 40-150 AST 17 U/L 5-34 ALT 27 U/L BILIRUBIN, TOTAL 0.6 mg/dL 0.2-1.2 Apr 19, 2024 09:58 AM [facility] TSH SERUM Specimen Type: SERUM No comment entered. Ordering Provider: LETICIA WALDEN Report Released Date/Time: Apr 14, 2024 05:40 PM Reporting Lab: [address] [address] Performing Lab: [address] [address] TSH 2.19 u[IU]/mL 0.35-5.00 Apr 19, 2024 09:58 AM [facility] LIPID PANEL FASTING SERUM Specimen Type: SERU M No comment entered. Ordering Provider: LETICIA WALDEN Report Released Date/Time: Apr 14, 2024 05:40 PM Reporting Lab: [facility] [address] [facility] [address] Performing Lab: [facility] [address] [facility] [address] CHOLESTEROL 120 mg/dL TRIGLYCERIDE 98 mg/dL 0-150 LDL calculated 63 mg/dL 0-129 CHOL/HDL 3.2 HDL CHOLESTEROL 37 mg/dL L 40-60 Apr 19, 2024 09:58 AM [facility] URIC ACID SERUM Specimen Type: SERUM No comment entered. Ordering Provider: LETICIA WALDEN Report Released Date/Time: Apr 14, 2024 05:40 PM Reporting Lab: [address] [address] Performing Lab: [address] [address] URIC ACID 3.1 mg/dL L 3.5-7.2 Apr 19, 2024 09:58 AM [facility] CBC AND DIFF (AUTO) BLOOD Specimen Type: BLOO D No comment entered. Ordering Provider: LETICIA WALDEN Report Released Date/Time: Apr 14, 2024 05:40 PM Reporting Lab: [address] [address] Performing Lab: [address] [address] WBC 6.75 10*3/uL 4.50-11.00 RBC 3.99 10*6/uL [...] 10*3/uL 0.00-0.00 Apr 19, 2024 09:58 AM [facility] URINALYSIS CLEAN CATCH URINE Specimen Type: U RINE Comment: If Glucose = >500 and Ketones are positive, please alert the Physician. Ordering Provider: LETICIA WALDEN Report Released Date/Time: Apr 14, 2024 05:40 PM Reporting Lab: [address] [address] Performing Lab: [address] [address] UA COLOR Light-Yellow Yellow UA APPEARANCE Clear [...] 13, 2023 11:00 AM VA-TOBACCO FORMER USER [place] [facility] [place] [facility] Tobacco Use History This section includes a history of the smoking, or tobacco-related health factors, that were collected on or before the date of the Encounter. The data comes from the [place] facility where the Encounter took place. Date/Time Smoking Status/Tobac co Use Comment Facility Apr 13, 2023 11:00 AM VA-TOBACCO QUIT 5 TO < 15 YRS [facility] [facility] Apr 14, 2022 01:30 PM VA-TOBACCO FORMER USER [facility] [facility] Apr 14, 2022 01:30 PM VA-TOBACCO QUIT 5 TO < 15 YRS [facility] [place] [facility] Apr 10, 2021 10:00 AM VA-TOBACCO FORMER USER [facility] [place] [facility] Apr 10, 2021 10:00 AM VA-TOBACCO QUIT 5 TO < 15 YRS [place] [facility] [place] [facility] Apr 02, 2020 10:30 AM VA-TOBACCO FORMER USER [place] [facility] [place] [facility] Apr 02, 2020 10:30 AM VA-TOBACCO QUIT 5 TO < 15 YRS [place] [facility] [place] [facility] Sep 29, 2018 08:52 AM VA-TOBACCO FORMER USER [facility] [facility] Sep 29, 2018 08:52 AM VA-TOBACCO QUIT 15 YRS OR MORE [facility] [place] [facility] December 21, 2017 12:27 PM QUIT TOBACCO USE 1-7 YEARS AGO 5 or 6 years ago [facility] [place] [facility] May 19, 2017 10:21 AM QUIT TOBACCO USE 1-7 YEARS AGO [facility] [place] [facility] Aug 19, 2016 09:56 AM QUIT TOBACCO USE 1-7 YEARS AGO [facility] [place] [facility] Feb 12, 2016 11:34 AM QUIT TOBACCO USE 1-7 YEARS AGO [facility] [place] [facility] Aug 08, 2015 03:04 PM QUIT TOBACCO USE 1-7 YEARS AGO [facility] [place] [facility] Aug 08, 2015 03:04 PM [...] 20, 2012 ADVANCE DIRECTIVE DISCUSSION MONIKA IZAGUIRRE [facility] Radiology Reports: +/- 30 days of the [...] CERVICAL, 4 OR 5 VIEWS: SANCHO DYE [id number] -[id number] M Exm Date: MAR 09, 2024@09:52 Req Phys: BRYANNA MOORE Pat Loc: CWM/NO/SICK CALL PA (Req'g Loc Img Loc: [facility] 1 Service: [place] [address] (Case [id number] COMPLETE) SPINE CERVICAL, 4 OR 5 VIEWS (RAD Detailed) CPT:60831 Reason for Study: pain with radiating features to the left shoulder Clinical History: Report Status: Verified Date Reported: MAR 09, 2024 Date Verified: MAR 09, 2024 Automatic Nailing Machine Operator E-Sig:/ES/MIRTA NAVAS JR Report: Study: [...] Primary Interpreting Staff: MIRTA NAVAS JR, Radiologist (Automatic Nailing Machine Operator) /MIRTA CASIANO JR [place] [facility] Encounter Notes: All associated encounter notes This section contains the clinical notes associated to the Encounter. Date/Time Encounter Note(s) Provider Source Mar 30, 2024 09:05 AM CHIROPRACTIC NOTE: LOCAL TITLE: CHIROPRACTOR PROGRESS NOTE STANDARD TITLE: CHIROPRACTIC NOTE DATE OF NOTE: MAR 30, 2024@09:05 ENTRY DATE: MAR 30, 2024@09:05:50 AUTHOR: MICHELLE TAVARES COSIGNER: URGENCY: STATUS: COMPLETED [...] 06/24/2023 LETICIA WALDEN AF- Atrial Fibrillation (SCT [id number] 12/23/2017 LETICIA WALDEN Coronary artery disease I25.10, [...] R shoulder Takes anti-coagulants Patient [place] Chi[place]ic clinic with report that he feels improvement but he cut the lawn and felt an incr pain in his neck and N/T down his left arm. Today he continues to feel left arm sx. This morning he took Tylenol and Cyclobenzaprine. He continues to apply ice and then [...] different bed. He just flew down to [place]. HX; During service natural falls down but [...] cortisone which alleviated the sx. 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 CHIROPRACTOR Signed: 03/30/2024 09:28 MICHELLE TAVARES CNTRL [facility]
--- OUTSIDE RECORDS SUMMARY | 2024-11-11 14:58 | XMS_ITS | Encounter Summary ---
Author Name [facility] [place] Address [address] [place] [address] Care Team Providers Care Machine Leather Trimmer Name Role Phone LETICIA WALDEN Primary Care [...] PART B Apr 24, 2013 PART B [id number] [phone] [id number] KLEBER DYE RY PATIENT MEDICARE (WNR) MEDICARE () PART B Apr 24, 2013 PART B [id number] KLEBER DYE RY PATIENT MEDICARE (WNR) MEDICARE () PART B Apr 24, 2013 PART B [id number] KLEBER DYE RY PATIENT MEDICARE (WNR) MEDICARE () PART A November 23, 2011 PART A [id number] KLEBER DYE RY PATIENT MEDICARE (WNR) MEDICARE () PART A November 23, 2011 PART A [id number] KLEBER DYE RY PATIENT MEDICARE (WNR) MEDICARE () PART A November 23, 2011 PART A [id number] KLEBER DYE PATIENT M[employer] OF [place] [employer] PLAN G PLAN G Apr 24, 2013 PLAN G [id number] [phone] [id number] KLEBER DYE PATIENT [employer] [place] [employer] PLAN G PLANG Apr 24, 2013 PLANG [id number] KLEBER DYE PATIENT [employer] [place] [employer] PLAN G Apr 24, 2013 PLANG [id number] KLEBER DYE PATIENT Selected Encounter This section includes the information on record at [place] for the Encounter. 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 Date/Time Primary/Secondary Diagnosis Diagnosis Name Provider Source Jul 05, 2024 08:51 AM PRIMARY CervicalMICHELLE Hand [place] [facility] [place] [facility] Plan of Treatment: Future Appointments (+ 6 months) and Future Tests (+/- 45 days) The Plan of Treatment section includes future care activities for the patient from all [place] [facility]. This section includes future appointments and future orders which are active, pending or scheduled. Future Appointments This section includes appointments that were scheduled to occur 6 months from the date of the Encounter, up to a maximum of 20 appointments. The data comes from all [place] treatment facilities. Appointment Date/Time Appointment Type Appointme nt Facility Name Jun 26, 2024 10:30 AM AMBULATORY - REHAB MEDICIN E [place] [facility] [place] [facility] Jun 26, 2024 01:00 PM AMBULATORY - MEDICINE [place] C [facility] [place] [facility] Jul 03, 2024 10:30 AM AMBULATORY - REHAB MEDICIN E [facility] [facility] Jul 10, 2024 10:30 AM AMBULATORY - REHAB MEDICIN E [facility] [facility] Jul 12, 2024 10:30 AM AMBULATORY - MEDICINE [place] C [facility] [place] [facility] Jul 24, 2024 10:00 AM AMBULATORY - REHAB MEDICIN E [facility] [facility] Aug 09, 2024 10:00 AM AMBULATORY - MEDICINE [place] C [facility] [place] [facility] Aug 10, 2024 10:00 AM AMBULATORY - REHAB MEDICIN E [facility] [facility] Aug 14, 2024 11:00 AM AMBULATORY - MEDICINE [facility] [place] [facility] Aug 27, 2024 11:00 AM AMBULATORY - NONE [place] [facility] [place] [facility] Aug 28, 2024 10:30 AM AMBULATORY - REHAB MEDICIN E [facility] [facility] Sep 12, 2024 01:00 PM AMBULATORY - REHAB MEDICIN E [facility] [facility] Oct 04, 2024 03:00 PM AMBULATORY - MEDICINE [facility] C [facility] [facility] Oct 16, 2024 10:00 AM AMBULATORY - MEDICINE [facility] [facility] December 12, 2024 11:30 AM AMBULATORY - MEDICINE [facility] [facility] Social History: Smoking Status (Most current) and Tobacco Use (All prior to encounter date) This section includes the most current, and the historical, smoking and tobacco- related health factors from the [place] facility where the Encounter took place. Current Smoking Status This section includes the most current smoking, or tobacco-related health factor, from the [place] facility where the Encounter took place. Date/Time Current Smoking Status Comment [facility] Apr 23, 2024 10:00 AM VA-TOBACCO FORMER USER [place] [facility] [place] [facility] Tobacco Use History This section includes a history of the smoking, or tobacco-related health factors, that were collected on or before the date of the Encounter. The data comes from the [place] facility where the Encounter took place. Date/Time Smoking Status/Tobac co Use Comment Facility Apr 23, 2024 10:00 AM VA-TOBACCO QUIT 5 TO < 15 YRS [facility] [place] [facility] Apr 13, 2023 11:00 AM VA-TOBACCO FORMER USER [facility] [place] [facility] Apr 13, 2023 11:00 AM VA-TOBACCO QUIT 5 TO < 15 YRS [facility] [place] [facility] Apr 14, 2022 01:30 PM VA-TOBACCO FORMER USER [facility] [place] [facility] Apr 14, 2022 01:30 PM VA-TOBACCO QUIT 5 TO < 15 YRS [facility] [place] [facility] Apr 10, 2021 10:00 AM VA-TOBACCO FORMER USER [facility] [place] [facility] Apr 10, 2021 10:00 AM VA-TOBACCO QUIT 5 TO < 15 YRS [facility] [place] [facility] Apr 02, 2020 10:30 AM VA-TOBACCO FORMER USER [facility] [place] [facility] Apr 02, 2020 10:30 AM VA-TOBACCO QUIT 5 TO < 15 YRS [facility] [place] [facility] Sep 29, 2018 08:52 AM VA-TOBACCO FORMER USER [place] [facility] [place] [facility] Sep 29, 2018 08:52 AM VA-TOBACCO QUIT 15 YRS OR MORE [place] [facility] [place] [facility] December 21, 2017 12:27 PM QUIT TOBACCO USE 1-7 YEARS AGO 5 or 6 years ago [facility] [place] [facility] May 19, 2017 10:21 AM QUIT TOBACCO USE 1-7 YEARS AGO [facility] [place] [facility] Aug 19, 2016 09:56 AM QUIT TOBACCO USE 1-7 YEARS AGO [facility] [place] [facility] Feb 12, 2016 11:34 AM QUIT TOBACCO USE 1-7 YEARS AGO [facility] [place] [facility] Aug 08, 2015 03:04 PM QUIT TOBACCO USE 1-7 YEARS AGO [facility] [place] [facility] Aug 08, 2015 03:04 PM QUIT TOBACCO USE IN PAST YEAR pt states he stooped smmoking in the past yr. [place] [facility] [facility] Advance Directives: All historical and current Section Date Range: From patient's date of to the date document was created. This section includes ALL of a patient's completed or amended [place] Advance and Rescinded Directives. The entries below indicate that a directive exists for the patient, but an actual copy is not included with this document. The data comes from all [place] facilities. Date Advance Directives Provider Source Jun [...] the Encounter. The data comes from all [place] treatment facilities. Date/Time Radiology Report Provider Source Jun 14, 2024 10:20 AM LDCT LUNG CANCER SCREENING: SANCHO DYE [id number] -[id number] M Exm Date: JUN 14, 2024@10:20 Req Phys: LETICIA WALDEN Loc: ZZCWM/NO/LCS ADMIN (Req'g Loc) Img Loc: [facility]/CT Service: [place] [address] (Case [id number] COMPLETE) LDCT LUNG CANCER SCREENING (CT Detailed) CPT:52633 Reason for Study: LUNG CANCER SCREENING Clinical History: 53 TPY-Quit 2012 Prior chest imaging: CT scan the chest from May 25, 2022, May 07, 2021, April 29, 2020, April 18, 2019 and December 12, 2017. LCS LDCT on 06/15/2023: LR 1 Report Status: Verified Date Reported: JUN 14, 2024 Date Verified: JUN 14, 2024 Upper Cutter E-Sig:/ES/MIRTA NAVAS JR Report: Study: Lung cancer [...] reviewed. Secondary computer-aided detection with post-processing from [employer] is used. The lack of intravenous contrast [...] Primary Interpreting Staff: MIRTA NAVAS JR, Radiologist (Upper Cutter) /MIRTA CASIANO JR [place] [facility] Encounter Notes: All associated encounter [...] better that at the last visit in [place] Chiro clinic. Recommended ice pack wrapped in a thin cloth applied to his neck for 10 minutes at a time. Maximum is 10 minutes per hour. /glenis/ MICHELLE TAVARES D.C. CHIROPRACTOR Signed: 06/18/2024 10:41 MICHELLE TAVARES [place] [facility] Jun 15, 2024 02:03 PM CHIROPRACTIC NOTE: [...] 06/24/2023 LETICIA WALDEN AF- Atrial Fibrillation (SCT [id number] 12/23/2017 LETICIA WALDEN Coronary artery disease I25.10, [...] R shoulder Takes anti-coagulants Patient presents to [place] Chirop[place]ic clinic with report that the neck [...] different bed. He just flew down to [place]. HX; During service natural falls down but [...] of cortisone which alleviated the sx. Prior director day care center: yes for R shoulder and neck Activities: [...] Signed: 06/15/2024 16:29 MICHELLE TAVARES [facility]
--- OUTSIDE RECORDS SUMMARY | 2024-11-11 14:59 | XMS_ITS | Encounter Summary ---
Author Name [facility] [place] Organization [facility] [place] Address [address] [place] [address] Care Team Providers Care Patient Financial Services Manager Name Role Phone AARON WALDEN Primary Care [...] PART B Apr 24, 2013 PART B [id number] KLEBER DYE RY PATIENT MEDICARE (WNR) MEDICARE () PART B Apr 24, 2013 PART B [id number] KLEBER DYE RY PATIENT MEDICARE (WNR) MEDICARE () PART B Apr 24, 2013 PART B [id number] KLEBER DYE RY PATIENT MEDICARE (WNR) MEDICARE () PART A November 23, 2011 PART A [id number] KLEBER DYE RY PATIENT MEDICARE (WNR) MEDICARE () PART A November 23, 2011 PART A [id number] KLEBER DYE RY PATIENT MEDICARE (WNR) MEDICARE () PART A November 23, 2011 PART A [id number] KLEBER DYE PATIENT [employer] [place] [employer] PLAN G PLAN G Apr 24, 2013 PLAN G [id number] KLEBER DYE PATIENT [employer] [place] [employer] PLAN G Apr 24, 2013 PLANG [id number] KLEBER DYE PATIENT [employer] [place] [employer] PL[employer] G PLANG Apr 24, 2013 PLANG [id number] KLEBER DYE PATIENT Selected Encounter This section includes the information on record at ID for the Encounter. Date/Time Encounter Type Encounter Description Reason Provider Source Jun 14, 2024 01:41 PM QNHP OL DIG ASSMT&MGMT 5-10 PULMONARY/CHEST ICD-10-CM Z12.2 Encntr screen for malignant neoplasm of respiratory organs BRAYDEN DELEON [facility] Encounter Template Text not used by ID Assessments - Encounter Diagnoses This section includes the primary and secondary diagnoses documented for the Encounter. Date/Time Primary/Secondary Diagnosis Diagnosis Name Provider Source Jun 14, 2024 01:48 PM PRIMARY Encntr screen for malignant neoplasm of respiratory organs BRAYDEN DELEON [facility] Plan of Treatment: Future Appointments (+ 6 [...] 15, 2024 02:00 PM AMBULATORY - MEDICINE [facility] [place] [facility] Jun 26, 2024 10:30 AM AMBULATORY - REHAB [facility]IN [facility] [place] [facility] Jun 26, 2024 01:00 PM AMBULATORY - MEDICINE [facility] Jul 03, 2024 10:30 AM AMBULATORY - [facility] [place] [facility] Jul 10, 2024 10:30 AM AMBULATORY - REHAB MEDICIN E [facility] [place] [place] [facility] Jul 12, 2024 10:30 AM AM[facility]ULATORY - MEDICINE [facility] [place] [place] [facility] Jul 24, 2024 10:00 AM AMBULATORY - REHAB MEDICIN E [facility] [place] [facility] Aug 09, 2024 10:00 AM AMBULATORY - MEDICINE [facility] [place] [place] [facility] Aug 10, 2024 10:00 AM AMBULATORY - REHAB MEDICIN E [facility] [place] [facility] Aug 14, 2024 11:00 AM AMBULATORY - MEDICINE [facility] [place] [facility] Aug 27, 2024 11:00 AM AMBULATORY - NONE [facility] [place] [place] [facility] Aug 28, 2024 10:30 AM AMBULATORY - REHAB MEDICIN E [facility] [place] [facility] Sep 12, 2024 01:00 PM AMBULATORY - REHAB MEDICIN E [facility] [place] [facility] Oct 04, 2024 03:00 PM AMBULATORY - MEDICINE [facility] [place] [facility] Oct 16, 2024 10:00 AM AMBULATORY - MEDICINE [facility] [place] [facility] December 12, 2024 11:30 AM AMBULATORY - MEDICINE ID C [place] [place] [facility] Social History: Smoking Status (Most current) [...] Facil it Apr 23, 2024 10:00 AM ID-TOBACCO QUIT 5 TO < 15 YRS [facility] Tobacco Use History This section includes a history of the smoking, or tobacco-related health factors, that were collected on or before the date of the Encounter. The data comes from the ID facility where the Encounter took place. Date/Time Smoking Status/Tobac co Use Comment Facility Apr 23, 2024 10:00 AM ID-TOBACCO QUIT 5 TO < 15 YRS [facility] [place] [place] [facility] Apr 13, 2023 11:00 AM VA-TOBACCO FORMER USER [facility] [place] [place] [facility] Apr 13, 2023 11:00 AM VA-TOBACCO QUIT 5 TO < 15 YRS [facility] [place] [place] [facility] Apr 14, 2022 01:30 PM VA-TOBACCO FORMER USER [facility] [place] [facility] Apr 14, 2022 01:30 PM VA-TOBACCO QUIT 5 TO < 15 YRS [facility] [place] [facility] Apr 10, 2021 10:00 AM VA-TOBACCO FORMER USER [facility] [place] [facility] Apr 10, 2021 10:00 AM VA-TOBACCO QUIT 5 TO < 15 YRS [facility] [place] [place] [facility] Apr 02, 2020 10:30 AM VA-TOBACCO FORMER USER [facility] [place] [facility] Apr 02, 2020 10:30 AM VA-TOBACCO QUIT 5 TO < 15 YRS [facility] [place] [facility] Sep 29, 2018 08:52 AM VA-TOBACCO FORMER USER [facility] [place] [facility] Sep 29, 2018 08:52 AM VA-TOBACCO QUIT 15 YRS OR MORE [facility] [place] [place] [facility] December 21, 2017 12:27 PM QUIT TOBACCO USE 1-7 YEARS AGO 5 or 6 years ago [facility] [place] [facility] May 19, 2017 10:21 AM QUIT TOBACCO USE 1-7 YEARS AGO [facility] [place] [facility] Aug 19, 2016 09:56 AM QUIT TOBACCO USE 1-7 YEARS AGO [facility] [place] [facility] Feb 12, 2016 11:34 AM QUIT TOBACCO USE 1-7 YEARS AGO [facility] [place] [place] [facility] Aug 08, 2015 03:04 PM QUIT TOBACCO USE 1-7 YEARS AGO [facility] [place] [facility] Aug 08, 2015 03:04 PM QUIT TOBACCO USE IN PAST YEAR pt states he stooped smmoking in the past yr. [place] [facility] [place] [facility] Advance Directives: All historical and current [...] 2012 ADVANCE DIRECTIVE DISCUSSION MONIKA IZAGUIRRE [facility] Radiology Reports: +/- 30 days [...] LDCT LUNG CANCER SCREENING: SANCHO DYE EDILBERTO [id number] -[id number] M Exm Date: JUN 14, 2024@10:20 Req Phys: AARON WALDEN Pat Loc: ZZCWM/NO/LCS ADMIN (Req'g Loc) Img Loc: [place]/CT Service: [place] [address] (Case [id number] COMPLETE) LDCT LUNG CANCER SCREENING (CT Detailed) CPT:31312 Reason for Study: LUNG CANCER SCREENING Clinical History: 53 TPY-Quit 2012 Prior chest imaging: CT scan the chest from May 25, 2022, May 07, 2021, April 29, 2020, April 18, 2019 and December 12, 2017. LCS LDCT on 06/15/2023: LR 1 Report Status: Verified Date Reported: JUN 14, 2024 Date Verified: JUN 14, 2024 Assembler Insulator E-Sig:/ES/MIRTA NAVAS JR Report: Study: Lung cancer [...] reviewed. Secondary computer-aided detection with post-processing from [employer] is used. The lack of intravenous contrast [...] Primary Interpreting Staff: MIRTA NAVAS JR, Radiologist (Assembler Insulator) /MIRTA CASIANO JR [place] [facility] [place] [facility] Encounter Notes: All associated encounter notes [...] screening CT scans, but very few nodules returned goods sorter to be cancer. In general, more than [...] care provider know. You can also call [phone] ( ) or visit [email or web address]. Please contact us with questions or concerns about lung cancer screening. Sincerely, Valeri BRUNNER, RN, OCN Lung Cancer Screening Nurse Enclosures: brochure entitled, Small Lung Nodules: What You Need to Know /glenis/ VALERI BRUNNER,RN,OCN LUNG CANCER SCREENING NURSE NAVIGATOR Signed: 06/14/2024 13:50 VALERI DELEON [place] [facility]L [place] [facility] Jun 14, 2024 01:41 PM PREVENTIVE MEDICINE [...] by telephone. Comment: Call placed to the [facility]. Non-urgent voicemail left. Direct call back number for LCS Coordinator provided. 53 TPY quit smoking in 2012 /glenis/ VALERI GUERRERON,RN,OCN LUNG CANCER SCREENING NURSE NAVIGATOR Signed: 06/14/2024 13:48 Receipt Acknowledged By: 06/15/2024 08:57 /es/ Merly Matthews RN, BSN Primary Care 06/14/2024 17:07 /glenis/ Aaron Walden MD Staff Physician VALERI DELEON [facility]
--- OUTSIDE RECORDS SUMMARY | 2024-11-11 14:59 | XMS_ITS | Encounter Summary ---
Author Name [facility] [facility] [place] Organization [facility] [place] Address [address] [place] [address] Care Team Providers Care Rod Hanger Name Role Phone LETICIA WALDEN Primary Care [...] PART B Apr 24, 2013 PART B [id number] KLEBER DYE RY PATIENT MEDICARE (WNR) MEDICARE () PART B Apr 24, 2013 PART B [id number] [facility] [phone] [id number] KLEBER DYE RY PATIENT MEDICARE (WNR) MEDICARE () PART B Apr 24, 2013 PART B [id number] [phone] [id number] KLEBER DYE RY PATIENT MEDICARE (WNR) MEDICARE () PART A November 23, 2011 PART A [id number] [id number] KLEBER DYE RY PATIENT MEDICARE (WNR) MEDICARE () PART A November 23, 2011 PART A [id number] [phone] [id number] KLEBER DYE RY PATIENT MEDICARE (WNR) MEDICARE () PART A November 23, 2011 PART A [id number] KLEBER DYE PATIENT [employer] [place] [employer] PLAN G PLANG Apr 24, 2013 PLANG [id number] 0 KLEBER DYE PATIENT [employer] [place] [employer] PLAN G PLAN G Apr 24, 2013 PLAN G [id number] KLEBER DYE PATIENT [employer] [place] [employer] PLAN G Apr 24, 2013 PLANG [id number] KLEBER DYE PATIENT Selected Encounter This section includes the information on record at NE for the Encounter. Date/Time Encounter Type Encounter Description Reason Provider Source Apr 24, 2024 10:00 AM THERAPEUTIC EXERCISES OCCUPATIONAL THERAPY ICD-10-CM M25.512 Pain in left shoulder PAM JEFFERSON IHE Encounter Template Text not used by NE Assessments - Encounter Diagnoses This section includes the primary and secondary diagnoses documented for the Encounter. Date/Time Primary/Secondary Diagnosis Diagnosis Name Provider Source May 18, 2024 04:26 PM PRIMARY Pain in left shoulder BRAULIO JEFFERSONLIE E [place] [facility] [place] [facility] Plan of Treatment: Future Appointments (+ 6 months) and Future Tests (+/- 45 days) The Plan of Treatment section includes future care activities for the patient from all NE treatmentfacilities. This section includes future appointments and future orders which are active, pending or scheduled. Future Appointments This section includes appointments that were scheduled to occur 6 months from the date of the Encounter, up to a maximum of 20 appointments. The data comes from all NE treatment facilities. Appointment Date/Time Appointment Type Appointme nt Facility Name Apr 27, 2024 10:15 AM AMBULATORY - MEDICINE [facility] [place] [facility] May 01, 2024 10:00 AM AMBULATORY - REHAB MEDICIN E [facility] [place] [place] [facility] May 16, 2024 10:00 AM AMBULATORY - REHAB MEDICIN E [facility] [place] [facility] May 16, 2024 11:00 AM AMBULATORY - REHAB MEDICIN E [facility] [place] [facility] May 21, 2024 03:00 PM AMBULATORY - REHAB MEDICIN E [facility] [place] [facility] May 29, 2024 10:30 AM AMBULATORY - REHAB MEDICIN E [facility] [place] [facility] Jun 05, 2024 10:00 AM AMBULATORY - REHAB MEDICIN E [facility] [place] [facility] Jun 07, 2024 03:00 PM AMBULATORY - MEDICINE [facility] [place] [facility] Jun 12, 2024 10:00 AM AMBULATORY - REHAB MEDICIN E [facility] [place] [facility] Jun 14, 2024 10:30 AM AMBULATORY - NONE [facility] [place] [facility] Jun 15, 2024 02:00 PM AMBULATORY - MEDICINE [facility] [place] [facility] Jun 26, 2024 10:30 AM AMBULATORY - REHAB MEDICIN E [facility] [place] [facility] Jun 26, 2024 01:00 PM AMBULATORY - MEDICINE [facility] [place] [facility] Jul 03, 2024 10:30 AM AMBULATORY - REHAB MEDICIN E [facility] [place] [facility] Jul 10, 2024 10:30 AM AMBULATORY - REHAB MEDICIN E [facility] [place] [facility] Jul 12, 2024 10:30 AM AMBULATORY - MEDICINE [facility] [place] [facility] Jul 24, 2024 10:00 AM AMBULATORY - REHAB MEDICIN E [facility] [place] [facility] Aug 09, 2024 10:00 AM AMBULATORY - MEDICINE [facility] [place] [facility] Aug 10, 2024 10:00 AM AMBULATORY - REHAB MEDICIN E [facility] [place] [facility] Aug 14, 2024 11:00 AM AMBULATORY - MEDICINE [facility] [place] [facility] Lab Results: +/- 30 days of the encounter This section includes the Chemistry and Hematology Lab Results on record with NE for the patient. Radiology Reports and Pathology Reports are provided separately, in subsequent sections. Lab Results This section contains the Chemistry/Hematology Results that were resulted 30 days before or 30 daysafter the date of the Encounter. Date/Time Source Result Type Result - Unit Interpretation Reference Range Specimen Type Comment Apr 19, 2024 09:58 AM [facility] [place] [facility] BASIC METABOLIC PANEL (fasting) SERUM Specime n Type: SERUM No comment entered. Ordering Provider: LETICIA WALDEN Report Released Date/Time: Apr 14, 2024 05:40 PM Reporting Lab[facility] [address] [address] Performing Lab: [facility] [address] [facility] [address] UREA NITROGEN 17 mg/dL 7-25 GLUCOSE 103 mg/dL H 65-100 SODIUM 139 mmol/L 135-145 POTASSIUM 4.2 mmol/L 3.5-5.0 CHLORIDE 107 mmol/L 100-110 CO2 25 meq/L 20-30 CREATININE, Serum 1.05 mg/dL 0.50-1.40 eGFR(CKD-EPI 2020) 73 mL/min >60 Apr 19, 2024 09:58 AM [facility] LIPID PANEL FASTING SERUM Specimen Type: SERU M No comment entered. Ordering Provider: LETICIA WALDEN Report Released Date/Time: Apr 14, 2024 05:40 PM Reporting Lab: [facility] [address] [facility] [address] Performing Lab: [facility] [address] [facility] [address] CHOLESTEROL 120 mg/dL TRIGLYCERIDE 98 mg/dL 0-150 LDL calculated 63 mg/dL 0-129 CHOL/HDL 3.2 HDL CHOLESTEROL 37 mg/dL L 40-60 Apr 19, 2024 09:58 AM [facility] TSH SERUM Specimen Type: SERUM No comment entered. Ordering Provider: LETICIA WALDEN Report Released Date/Time: Apr 14, 2024 05:40 PM Reporting Lab: [facility] [address] [facility] [address] Performing Lab: [facility] [address] TSH 2.19 u[IU]/mL 0.35-5.00 Apr 19, 2024 09:58 AM [facility] URIC ACID SERUM Specimen Type: SERUM No comment entered. Ordering Provider: LETICIA WALDEN Report Released Date/Time: Apr 14, 2024 05:40 PM Reporting Lab: [facility] [address] [facility] [address] Performing Lab: [facility] [address] [address] URIC ACID 3.1 mg/dL L 3.5-7.2 Apr 19, 2024 09:58 AM [facility] CBC AND DIFF (AUTO) BLOOD Specimen Type: BIBIANA López No comment entered. Ordering Provider: LETICIA WALDEN Report Released Date/Time: Apr 14, 2024 05:40 PM Reporting Lab: [facility] [address] [address] Performing Lab: [facility] [address] [address] WBC 6.75 10*3/uL 4.50-11.00 RBC 3.99 10*6/uL [...] 10*3/uL 0.00-0.00 Apr 19, 2024 09:58 AM [facility] LIVER FUNCTION SERUM Specimen Type: SERUM No comment entered. Ordering Provider: LETICIA WALDEN Report Released Date/Time: Apr 14, 2024 05:40 PM Reporting Lab: [address] [address] Performing Lab: [address] [address] PROTEIN,TOTAL 6.8 g/dL 6.0-8.3 ALBUMIN 3.8 g/dL 3.5-5.0 ALKALINE PHOSPHATASE 69 U/L 40-150 AST 17 U/L 5-34 ALT 27 U/L BILIRUBIN, TOTAL 0.6 mg/dL 0.2-1.2 Apr 19, 2024 09:58 AM [facility] URINALYSIS CLEAN CATCH URINE Specimen Type: U RINE Comment: If Glucose = >500 and Ketones are positive, please alert the Physician. Ordering Provider: LETICIA WALDEN Report Released Date/Time: Apr 14, 2024 05:40 PM Reporting Lab: [address] [address] Performing Lab: [address] [address] UA COLOR Light-Yellow Yellow UA APPEARANCE Clear [...] place. Date/Time Current Smoking Status Comment Facil itambrosio Apr 23, 2024 10:00 AM VA-TOBACCO FORMER USER [place] [facility] [place] [facility] Tobacco Use History This section includes [...] YRS [facility] [place] [facility] Apr 13, 2023 11:00 AM VA-TOBACCO FORMER USER [facility] [place] [facility] Apr 13, 2023 11:00 AM VA-TOBACCO QUIT 5 TO < 15 YRS [facility] [place] [place] [facility] Apr 14, 2022 01:30 PM VA-TOBACCO FORMER USER [facility] [place] [facility] Apr 14, 2022 01:30 PM VA-TOBACCO QUIT 5 TO < 15 YRS [facility] [place] [facility] Apr 10, 2021 10:00 AM VA-TOBACCO FORMER USER [facility] [facility] Apr 10, 2021 10:00 AM VA-TOBACCO QUIT 5 TO < 15 YRS [facility] [place] [facility] Apr 02, 2020 10:30 AM VA-TOBACCO FORMER USER [facility] [place] [facility] Apr 02, 2020 10:30 AM VA-TOBACCO QUIT 5 TO < 15 YRS [facility] [facility] Sep 29, 2018 08:52 AM VA-TOBACCO FORMER USER [facility] [place] [facility] Sep 29, 2018 08:52 AM VA-TOBACCO QUIT 15 YRS OR MORE [facility] [place] [facility] December 21, 2017 12:27 PM QUIT TOBACCO USE 1-7 YEARS AGO 5 or 6 years ago [facility] [place] [facility] May 19, 2017 10:21 AM QUIT TOBACCO USE 1-7 YEARS AGO [facility] [place] [facility] Aug 19, 2016 09:56 AM QUIT TOBACCO USE 1-7 YEARS AGO [facility] [place] [facility] Feb 12, 2016 11:34 AM QUIT TOBACCO USE 1-7 YEARS AGO [facility] [place] [facility] Aug 08, 2015 03:04 PM QUIT TOBACCO USE 1-7 YEARS AGO [facility] Aug 08, 2015 03:04 PM QUIT TOBACCO USE IN PAST YEAR pt states he stooped smmoking in the past yr. [facility] Advance Directives: All historical and current Section Date Range: From patient's date of to the date document was created. This section includes ALL of a patient's completed or amended [place] Advance and Rescinded Directives. The entries below indicate that a directive exists for the patient, but an actual copy is not included with this document. The data comes from all [place] facilities. Date Advance Directives Provider Source Jun 20, 2012 ADVANCE DIRECTIVE DISCUSSION MONIKA IZAGUIRRE [facility] Encounter Notes: All associated encounter notes This section contains the clinical notes associated to the Encounter. Date/Time Encounter Note(s) Provider Source Apr 24, 2024 07:59 AM OCCUPATIONAL THERAPY NOTE: LOCAL TITLE: OCCUPATIONAL THERAPY STANDARD TITLE: OCCUPATIONAL THERAPY NOTE DATE OF NOTE: APR 24, 2024@07:59 ENTRY DATE: APR 24, 2024@07:59:51 AUTHOR: PAM JEFFERSON COSIGNER: URGENCY: STATUS: COMPLETED Initial Evaluation date: Mar Progress Note Date: Treatment #: 3 Treatment time: 30 minutes Diagnosis: Pain in left Shoulder(ICD-10-CM M25.512) Provider: Irma DIAZ Treatment Precautions: Patient identified by full name and date of SUBJECTIVE: Pt reports that his shoulder is still sore but definitely better. Pulling on his neck a little. Pain level: 3-4/10 OBJECTIVE: THERAPEUTIC EXERCISE: *UBE 2' forward, 2' backward 1.0 *pulleys into flexion w/ 10 second hold, 1x10 *wall slides into flexion, 1x10 *pec stretch in doorway, 30 seconds x3 ADDED: *shoulder rows w/ blue band, 2x10 Access Code: [email or web address] URL: [email or web address] Date: 04/24/2024 Prepared by: [facility] Exercises - Seated Shoulder Flexion AAROM [...] MANUAL THERAPY: *mobilization to upper trap/infra and anterior shoulder musculature, seated MINUTES: 9 THERAPEUTIC DYNAMIC ACTIVITIES: MINUTES: NEUROMUSCULAR EDUCATION: MINUTES: OTHER: MINUTES: MODALITIES: *MHP to L shoulder prior to tx MINUTES: 3 [] Contraindication screen completed prior to modality [] Skin intact pre/post SELF CARE/EDUCATION: MINUTES: Patient education was provided for all aspects of care during this clinical encounter. ASSESSMENT: pt tolerated tx well this date. his pain level is improved since his last visit. he is able to tolerate TE. issued pt shoulder rows this date, which he reported was fatiguing. reviewed pec stretch and pt was performing incorrectly. reported it felt better after reviewing today. palpable adhesions in infraspinatus. PLAN: continue w/ OT POC; modify tx as needed. pt is in agreement w/ this POC. /glenis/ Pam Jefferson, MS OTR/Malini, CHT Occupational Therapist Signed: 04/24/2024 14:38 PAM JEFFERSON [facility]
--- OUTSIDE RECORDS SUMMARY | 2024-11-11 14:59 | XMS_ITS | Encounter Summary ---
Author Name [facility] [place] [facility] [place] Address [address] [place] [address] Care Team Providers Care Trim Carpenter Name Role Phone LETICIA WALDEN Primary Care [...] PART B Apr 24, 2013 PART B [id number] KLEBER DYE RY PATIENT MEDICARE (WNR) MEDICARE () PART B Apr 24, 2013 PART B [id number] [id number] [phone] [id number] KLEBER DYE RY PATIENT MEDICARE (WNR) MEDICARE () PART B Apr 24, 2013 PART B [id number] [phone] [id number] KLEBER DYE RY PATIENT MEDICARE (WNR) MEDICARE () PART A November 23, 2011 PART A [id number] [id number] KLEBER DYE RY PATIENT MEDICARE (WNR) MEDICARE () PART A November 23, 2011 PART A [id number] [id number] [id number] KLEBER DYE RY PATIENT MEDICARE (WNR) MEDICARE () PART A November 23, 2011 PART A [id number] KLEBER DYE PATIENT [employer] PLAN G PLAN G Apr 24, 2013 PLAN G [id number] KLEBER DYE PATIENT [employer] PLAN G Apr 24, 2013 PLANG [id number] KLEBER DYE PATIENT [employer] PL[employer] G PLANG Apr 24, 2013 PLANG [id number] KLEBER DYE PATIENT Selected Encounter This section includes the information on record at [place] for the Encounter. Date/Time Encounter Type Encounter Description Reason Provider Source Aug 28, 2024 10:30 AM THERAPEUTIC EXERCISES OCCUPATIONAL THERAPY ICD-10-CM M25.512 Pain in left shoulder PAM JEFFERSON IHE Encounter Template Text not used by [place] Assessments - Encounter Diagnoses This section includes the primary and secondary diagnoses documented for the Encounter. Date/Time Primary/Secondary Diagnosis Diagnosis Name Provider Source Sep 18, 2024 09:18 AM PRIMARY Pain in left shoulder RONNYPAM E [place] [facility] [place] [facility] Plan of Treatment: Future Appointments (+ [...] MEDICIN E [facility] [place] [facility] Oct 04, 2024 03:00 PM AMBULATORY - MEDICINE [place] [facility] [place] [facility] Oct 16, 2024 10:00 AM AMBULATORY - MEDICINE [place] [facility] [place] [facility] December 12, 2024 11:30 AM AMBULATORY - MEDICINE [place] [facility] [place] [facility] Dec 25, 2024 01:00 PM AMBULATORY - MEDICINE [place] [facility] [place] [facility] Jan 01, 2025 09:00 AM AMBULATORY - MEDICINE [place] [facility] [place] [facility] Social History: Smoking Status (Most current) [...] took place. Date/Time Current Smoking Status Comment [facility] Apr 23, 2024 10:00 AM VA-TOBACCO FORMER USER [place] [facility] [place] [facility] Tobacco Use History This section includes a history of the smoking, or tobacco-related health factors, that were collected on or before the date of the Encounter. The data comes from the [place] facility where the Encounter took place. Date/Time Smoking Status/Tobac co Use [facility] Apr 23, 2024 10:00 AM VA-TOBACCO QUIT 5 TO < 15 YRS [facility] [place] [facility] Apr 13, 2023 11:00 AM VA-TOBACCO FORMER USER [facility] [place] [facility] Apr 13, 2023 11:00 AM VA-TOBACCO QUIT 5 TO < 15 YRS [facility] [place] [facility] Apr 14, 2022 01:30 PM VA-TOBACCO FORMER USER [facility] [place] [facility] Apr 14, 2022 01:30 PM VA-TOBACCO QUIT 5 TO < 15 YRS [facility] [place] [facility] Apr 10, 2021 10:00 AM VA-TOBACCO FORMER USER [facility] [place] [facility] Apr 10, 2021 10:00 AM VA-TOBACCO QUIT 5 TO < 15 YRS [facility] [place] [facility] Apr 02, 2020 10:30 AM VA-TOBACCO FORMER USER [facility] [place] [facility] Apr 02, 2020 10:30 AM VA-TOBACCO QUIT 5 TO < 15 YRS [facility] [place] [facility] Sep 29, 2018 08:52 AM VA-TOBACCO FORMER USER [facility] [place] [facility] Sep 29, 2018 08:52 AM VA-TOBACCO QUIT 15 YRS OR MORE [facility] [place] [facility] December 21, 2017 12:27 PM QUIT TOBACCO USE 1-7 YEARS AGO 5 or 6 years ago [facility] May 19, 2017 10:21 AM QUIT TOBACCO USE 1-7 YEARS AGO [facility] Aug 19, 2016 09:56 AM QUIT TOBACCO USE 1-7 YEARS AGO [facility] Feb 12, 2016 11:34 AM QUIT TOBACCO USE 1-7 YEARS AGO [facility] Aug 08, 2015 03:04 PM QUIT TOBACCO USE 1-7 YEARS AGO [facility] Aug 08, 2015 03:04 PM QUIT TOBACCO USE IN PAST YEAR pt states he stooped smmoking in the past yr. [facility] Advance Directives: All historical and current [...] DISCUSSION [facility] Encounter Notes: All associated encounter notes This [...] abduction w/ green band, 2x10 Access Code: [email or web address] URL: [email or web address] Date: 08/28/2024 Prepared by: PARUL [facility] Exercises - Seated Shoulder Flexion AAROM with [...] Occupational Therapist Signed: 08/28/2024 16:10 PAM JEFFERSON [facility]
--- OUTSIDE RECORDS SUMMARY | 2024-11-11 14:59 | XMS_ITS ---
Author Name [facility] [place] Address [address] [place] [address] Care Team Providers Care Screen Printing Inspector Name Role Phone LETICIA WALDEN Primary Care [...] PART B Apr 24, 2013 PART B [id number] [phone] [id number] KLEBER DYE RY PATIENT MEDICARE (WNR) MEDICARE () PART B Apr 24, 2013 PART B [id number] KLEBER DYE RY PATIENT MEDICARE (WNR) MEDICARE () PART B Apr 24, 2013 PART B [id number] KLEBER DYE RY PATIENT MEDICARE (WNR) MEDICARE () PART A November 23, 2011 PART A [id number] [id number] KLEBER DYE RY PATIENT MEDICARE (WNR) MEDICARE () PART A November 23, 2011 PART A [id number] [phone] [id number] KLEBER DYE RY PATIENT MEDICARE (WNR) MEDICARE () PART A November 23, 2011 PART A [id number] KLEBER DYE PATIENT [employer] PLAN G PLAN G Apr 24, 2013 PLAN G [id number] KLEBER DYE PATIENT [employer] PLAN G PLANG Apr 24, 2013 PLANG [id number] KLEBER DYE PATIENT [employer] PLAN G Apr 24, 2013 PLANG [id number] KLEBER DYE PATIENT Selected Encounter This section includes the information on record at [place] for the Encounter. Date/Time Encounter Type Encounter Description Reason Provider Source Mar 06, 2024 01:00 PM NURSING ASSESSMENT/EVAL [facility] PRIMARY CARE/MEDICINE ICD-10-CM M25.519 Pain in unspecified shoulder RK COLLINS [facility] Encounter Template Text not used by [place] Assessments - Encounter Diagnoses This section includes the primary and secondary diagnoses documented for the Encounter. Date/Time Primary/Secondary Diagnosis Diagnosis Name Provider Source Mar 06, 2024 01:58 PM PRIMARY Pain in unspecified shoulder RK COLLINS [place] [facility] [place] [facility] Plan of Treatment: Future Appointments (+ 6 months) and Future Tests (+/- 45 days) The Plan of Treatment section includes future care activities for the [facility] [place] [facility] This section includes future appointments and [...] 09, 2024 10:30 AM AMBULATORY - MEDICINE [place] [facility] [place] [facility] Mar 09, 2024 01:00 PM AMBULATORY - MEDICINE [place] [facility] [place] [facility] Mar 13, 2024 10:30 AM AMBULATORY - REHAB MEDICIN E [facility] [place] [facility] Mar 14, 2024 02:30 PM AMBULATORY - REHAB MEDICIN E [facility] [place] [facility] Mar 16, 2024 10:30 AM AMBULATORY - MEDICINE [place] [facility] [place] [facility] Mar 20, 2024 09:30 AM AMBULATORY - MEDICINE [facility] [place] [facility] Mar 23, 2024 10:30 AM AMBULATORY - MEDICINE [facility] [place] [facility] Mar 29, 2024 11:30 AM AMBULATORY - MEDICINE [facility] [place] [facility] Mar 30, 2024 09:00 AM AMBULATORY - MEDICINE [facility] [place] [facility] Apr 03, 2024 11:30 AM AMBULATORY - MEDICINE [facility] [place] [facility] Apr 03, 2024 12:15 PM AMBULATORY - MEDICINE [facility] [place] [facility] Apr 04, 2024 03:00 PM AMBULATORY - MEDICINE [facility] [place] [facility] Apr 06, 2024 10:30 AM AMBULATORY - REHAB MEDICIN E [facility] [place] [facility] Apr 11, 2024 09:30 AM AMBULATORY - MEDICINE [facility] [place] [facility] Apr 16, 2024 03:00 PM AMBULATORY - REHAB MEDICIN E [facility] [place] [facility] Apr 23, 2024 10:00 AM AMBULATORY - MEDICINE [facility] [place] [facility] Apr 24, 2024 10:00 AM AMBULATORY - REHAB MEDICIN E [facility] [place] [facility] Apr 27, 2024 10:15 AM AMBULATORY - MEDICINE [facility] [place] [facility] May 01, 2024 10:00 AM AMBULATORY - REHAB MEDICIN E [facility] [place] [facility] May 16, 2024 10:00 AM AMBULATORY - REHAB MEDICIN E [facility] [place] [facility] Vital Signs: All taken on the encounter date This section contains inpatient and outpatient Vital Signs collected on the date of the Encounter. Date/Time Temperature Pulse Blood Pressure Respiratory Rate SP02 Pain Height Weight Body Mass Index Source Mar 06, 2024 01:28 PM 97.8 77 148/84 20 96 8 [place] [facility] [place] [facility] Social History: Smoking Status (Most [...] took place. Date/Time Current Smoking Status Comment [facility] Apr 13, 2023 11:00 AM VA-TOBACCO FORMER USER [place] [facility] [place] [facility] Tobacco Use History This section includes a history of the smoking, or tobacco-related health factors, that were collected on or before the date of the Encounter. The data comes from the [place] facility where the Encounter took place. Date/Time Smoking Status/Tobac co Use Comment Facility Apr 13, 2023 11:00 AM VA-TOBACCO QUIT 5 TO < 15 YRS [facility] [place] [facility] Apr 14, 2022 01:30 PM VA-TOBACCO FORMER USER [facility] [place] [facility] Apr 14, 2022 01:30 PM VA-TOBACCO QUIT 5 TO < 15 YRS [facility] [place] [facility] Apr 10, 2021 10:00 AM VA-TOBACCO FORMER USER [facility] [place] [facility] Apr 10, 2021 10:00 AM VA-TOBACCO QUIT 5 TO < 15 YRS [facility] [place] [facility] Apr 02, 2020 10:30 AM VA-TOBACCO FORMER USER [facility] [place] [facility] Apr 02, 2020 10:30 AM VA-TOBACCO QUIT 5 TO < 15 YRS [facility] [place] [facility] Sep 29, 2018 08:52 AM VA-TOBACCO FORMER USER [facility] [place] [facility] Sep 29, 2018 08:52 AM VA-TOBACCO QUIT 15 YRS OR MORE [facility] [place] [facility] December 21, 2017 12:27 PM QUIT TOBACCO USE 1-7 YEARS AGO 5 or 6 years ago [facility] [place] [facility] May 19, 2017 10:21 AM QUIT TOBACCO USE 1-7 YEARS AGO [facility] [place] [facility] Aug 19, 2016 09:56 AM QUIT TOBACCO USE 1-7 YEARS AGO [facility] [place] [facility] Feb 12, 2016 11:34 AM QUIT TOBACCO USE 1-7 YEARS AGO [facility] [place] [facility] Aug 08, 2015 03:04 PM QUIT TOBACCO USE 1-7 YEARS AGO [facility] Aug 08, 2015 03:04 PM QUIT TOBACCO USE IN PAST YEAR pt states he stooped smmoking in the past yr. [facility] Advance Directives: All historical and current [...] the Encounter. The data comes from all [place] treatment facilities. Date/Time Radiology Report Provider Source Mar 09, 2024 09:52 AM SPINE CERVICAL, 4 OR 5 VIEWS: SANCHO DYE EDILBERTO [id number] -[phone] M Exm Date: MAR 09, 2024@09:52 Req Phys: BRYANNA MOORE Pat Loc: CWM/NO/SICK CALL PA (Req'g Loc Img Loc: [facility]/BUILDING 1 Service: Unknown [facility] [address] (Case [id number] COMPLETE) SPINE CERVICAL, 4 OR 5 VIEWS (RAD Detailed) CPT:44331 Reason for Study: pain with radiating features to the left shoulder Clinical History: Report Status: Verified Date Reported: MAR 09, 2024 Date Verified: MAR 09, 2024 Clothing Pattern Preparer E-Sig:/ES/MIRTA NAVAS JR Report: Study: AP, lateral [...] Primary Interpreting Staff: MIRTA NAVAS JR, Radiologist (Clothing Pattern Preparer) /MIRTA CASIANO JR [facility] Encounter Notes: All associated encounter notes This section contains the clinical notes associated to the Encounter. Date/Time Encounter Note(s) Provider Source Mar 06, 2024 01:53 PM PRIMARY CARE NOTE: LOCAL TITLE: WALK-IN NOTE PRIMARY CARE (T) STANDARD TITLE: PRIMARY CARE NOTE DATE OF NOTE: MAR 06, 2024@13:53 ENTRY DATE: MAR 06, 2024@13:53:33 AUTHOR: EMBER COLLINS EXP COSIGNER: URGENCY: STATUS: COMPLETED <====Click to Start Nurse Data: 78year old MALE [place] reports to Primary Care clinic for Walk-In visit. 's PCP is LETICIA WALDEN, last visit with PCP was , next visit scheduled for . Today Vet walks in to clinic with complaint of increased left shoulder pain, 03/03. It was recommended by PT that roman be seen in sick call for pain. Onset was in August and he was seen by his PCP then to address it. X-rays taken and referrals for OT and Chiro entered. Roman has been attending these appointment with some relief but continues to be on 650mg of APAP 4 times a day. Does not like Cyclobenzaprine as it makes him drowsy. Has appt with PCP on Apr 23 for regular f/u but would like additional plans for pain relief put in place today as OT recommended. Questions poss. injections and/or MRI. [place] had old injury to this joint and reports injection in past kept pain away for 5 years. Last recorded Vital Signs are: Temperature:97.8 F [36.6 C] (03/06/2024 13:28) Pulse:77 (03/06/2024 13:28) Blood Pressure:148/84 (03/06/2024 13:28) Respiration:20 (03/06/2024 13:28) Pain:8 (03/06/2024 13:28) Vet reports current allergies are: Remote Allergy Data No Remote Allergy/ADR Data available for this patient Current Medications from Active Med list include: Active Outpatient Medications (including Supplies): Active Outpatient Medications Status 1) ACETAMINOPHEN 325MG TAB TAKE TWO TABLETS BY MOUTH ACTIVE FOUR TIMES DAILY NEEDED 2) ALLOPURINOL 300MG TAB TAKE ONE TABLET BY MOUTH EVERY ACTIVE DAY FOR GOUT 3) APIXABAN 5MG TAB TAKE ONE TABLET BY MOUTH TWICE DAILY ACTIVE (S) 4) ATORVASTATIN CALCIUM 40MG TAB TAKE ONE TABLET BY ACTIVE (S) MOUTH AT BEDTIME FOR CHOLESTEROL 5) CILOSTAZOL 50MG TAB TAKE ONE TABLET BY MOUTH TWICE ACTIVE DAILY -TAKE 30 MINUTES BEFORE MEALS OR TWO HOURS AFTER MEALS 6) CLOPIDOGREL BISULFATE 75MG TAB TAKE ONE TABLET BY ACTIVE MOUTH EVERY DAY 7) CYCLOBENZAPRINE HCL 10MG TAB TAKE ONE TABLET BY MOUTH ACTIVE THREE TIMES DAILY NEEDED 8) LOSARTAN 100MG TAB TAKE ONE TABLET BY MOUTH ONCE ACTIVE DAILY FOR BLOOD PRESSURE/HEART 9) METOPROLOL SUCCINATE 100MG SA TAB TAKE ONE TABLET BY ACTIVE MOUTH ONCE DAILY FOR BLOOD PRESSURE/HEART 10) MULTIVITAMIN/MINERALS CAP/TAB TAKE 1 TABLET BY MOUTH ACTIVE EVERY DAY FOR VITAMIN SUPPLEMENTATION 11) PANTOPRAZOLE NA 20MG EC TAB TAKE ONE TABLET BY MOUTH ACTIVE EVERY DAY 12) TAMSULOSIN HCL 0.4MG CAP TAKE ONE CAPSULE BY MOUTH AT ACTIVE BEDTIME FOR ENLARGED PROSTATE Pending Outpatient Medications Status 1) DICLOFENAC NA 1% TOP GEL APPLY 2 GRAMS TOPICALLY FOUR PENDING TIMES A DAY FOR OSTEOARTHRITIS - USE DOSING CARD PROVIDED IN BOX 13 Total Medications Action: Recommended sick call provider visit for evaluation, Scheduled. Reminders Info Only: [facility] Connect Capable DUE NOW Falls & Incontinence Screen Sep Medication Reconciliation DUE NOW COVID-19 Immunization DUE NOW HTN Assess for Elevated BP>=140/90 DUE NOW RHS Screen DUE NOW Eye Care At-Risk Eval (Provider) DUE NOW (Optional) Whole Health Documentation DUE NOW Response: Understood and agreed to plan. /glenis/ EMBER COLLINS, RN REGISTERED NURSE Signed: 03/06/2024 14:00 EMBER COLLINS [facility]
--- OUTSIDE RECORDS SUMMARY | 2024-11-11 14:59 | XMS_ITS | Encounter Summary ---
Author Name [facility] [place] Address [address] [place] [address] Care Team Providers Care Surveyor Chain Helper Name Role Phone LETICIA WALDEN Primary [...] PART B Apr 24, 2013 PART B [id number] KLEBER DYE RY PATIENT MEDICARE (WNR) MEDICARE () PART B Apr 24, 2013 PART B [id number] [facility] KLEBER DYE RY PATIENT MEDICARE (WNR) MEDICARE () PART B Apr 24, 2013 PART B [id number] KLEBER DYE RY PATIENT MEDICARE (WNR) MEDICARE () PART A November 23, 2011 PART A [id number] KLEBER DYE RY PATIENT MEDICARE (WNR) MEDICARE () PART A November 23, 2011 PART A [id number] KLEBER DYE RY PATIENT MEDICARE (WNR) MEDICARE () PART A November 23, 2011 PART A [id number] KLEBER DYE PATIENT [employer] [place] PLAN G PLAN G Apr 24, 2013 PLAN G [id number] [phone] KLEBER DYE PATIENT [employer] [place] PLAN G Apr 24, 2013 PLANG [id number] KLEBER DYE PATIENT [employer] [place] PLAN G PLANG Apr 24, 2013 PLANG [id number] KLEBER DYE PATIENT Selected Encounter This section includes the information on record at [place] for the Encounter. Date/Time Encounter Type Encounter Description Reason Provider Source May 21, 2024 03:00 PM THERAPEUTIC EXERCISES OCCUPATIONAL THERAPY ICD-10-CM M25.512 Pain in left shoulder PAM JEFFERSON IHE Encounter Template Text not used by [place] Assessments - Encounter Diagnoses This section includes the primary and secondary diagnoses documented for the Encounter. Date/Time Primary/Secondary Diagnosis Diagnosis Name Provider Source Jun 02, 2024 12:52 PM PRIMARY Pain in left shoulder BRAULIO JEFFERSONLIE E [place] [facility] [facility] [place] [facility] Plan of Treatment: Future Appointments (+ 6 months) and Future Tests (+/- 45 days) The Plan of Treatment section includes future care activities for the patient from all [place] treatmentfacilities. This section includes future appointments and future orders which are active, pending or scheduled. Future Appointments This section includes appointments that were scheduled to occur 6 months from the date of the Encounter, up to a maximum of 20 appointments. The data comes from all [place] treatment facilities. Appointment Date/Time Appointment Type Appointme nt Facility Name May 29, 2024 10:30 AM AMBULATORY - REHAB MEDICIN E [facility] [place] [facility] Jun 05, 2024 10:00 AM AMBULATORY - REHAB MEDICIN E [facility] [place] [facility] Jun 07, 2024 03:00 PM AMBULATORY - MEDICINE [place] [facility] [facility] [place] [facility] Jun 12, 2024 10:00 AM AMBULATORY - REHAB MEDICIN E [facility] [place] [facility] Jun 14, 2024 10:30 AM AMBULATORY - NONE [facility] [place] [facility] Jun 15, 2024 02:00 PM AMBULATORY - MEDICINE [facility] [place] [facility] Jun 26, 2024 10:30 AM AMBULATORY - REHAB MEDICIN E [facility] [place] [facility] Jun 26, 2024 01:00 PM AMBULATORY - MEDICINE [facility] [place] [facility] Jul 03, 2024 10:30 AM AMBULATORY - REHAB MEDICIN E [facility] [place] [facility] Jul 10, 2024 10:30 AM AMBULATORY - REHAB MEDICIN E [facility] [place] [facility] Jul 12, 2024 10:30 AM AMBULATORY - MEDICINE [facility] [place] [facility] Jul 24, 2024 10:00 AM AMBULATORY - REHAB MEDICIN E [facility] [place] [facility] Aug 09, 2024 10:00 AM AMBULATORY - MEDICINE [facility] [place] [facility] Aug 10, 2024 10:00 AM AMBULATORY - REHAB MEDICIN E [facility] [place] [facility] Aug 14, 2024 11:00 AM AMBULATORY - MEDICINE [facility] [place] [facility] Aug 27, 2024 11:00 AM AMBULATORY - NONE [facility] [place] [facility] Aug 28, 2024 10:30 AM AMBULATORY - REHAB MEDICIN E [facility] [place] [facility] Sep 12, 2024 01:00 PM AMBULATORY - REHAB MEDICIN E [facility] [place] [facility] Oct 04, 2024 03:00 PM AMBULATORY - MEDICINE [facility] [place] [facility] Oct 16, 2024 10:00 AM AMBULATORY - MEDICINE [facility] [place] [facility] Social History: Smoking Status (Most current) and Tobacco Use (All prior to encounter date) This section includes the most current, and the historical, smoking and tobacco- related health factors from the [place] facility where the Encounter took place. Current Smoking Status This section includes the most current smoking, or tobacco-related health factor, from the [place] facility where the Encounter took place. Date/Time Current Smoking Status Comment Ivan bryson Apr 23, 2024 10:00 AM VA-TOBACCO QUIT 5 TO < 15 YRS [place] [facility] Tobacco Use History This section includes a history of the smoking, or tobacco-related health factors, that were collected on or before the date of the Encounter. The data comes from the [place] facility where the Encounter took place. Date/Time Smoking Status/Tobac co Use Comment Facility Apr 23, 2024 10:00 AM VA-TOBACCO QUIT 5 TO < 15 YRS [facility] [place] [facility] Apr 13, 2023 11:00 AM VA-TOBACCO FORMER USER [facility] [place] [facility] Apr 13, 2023 11:00 AM VA-TOBACCO QUIT 5 TO < 15 YRS [facility] [place] [facility] Apr 14, 2022 01:30 PM VA-TOBACCO FORMER USER [facility] [place] [facility] Apr 14, 2022 01:30 PM VA-TOBACCO QUIT 5 TO < 15 YRS [facility] [place] [facility] Apr 10, 2021 10:00 AM VA-TOBACCO FORMER USER [place] [facility] [facility] [place] [facility] Apr 10, 2021 10:00 AM VA-TOBACCO QUIT 5 TO < 15 YRS [facility] [place] [facility] Apr 02, 2020 10:30 AM VA-TOBACCO FORMER USER [place] [facility] [facility] [place] [facility] Apr 02, 2020 10:30 AM VA-TOBACCO QUIT 5 TO < 15 YRS [facility] [place] [facility] Sep 29, 2018 08:52 AM VA-TOBACCO FORMER USER [facility] [place] [facility] Sep 29, 2018 08:52 AM VA-TOBACCO QUIT 15 YRS OR MORE [facility] [place] [facility] December 21, 2017 12:27 PM QUIT TOBACCO USE 1-7 YEARS AGO 5 or 6 years ago [facility] [place] [facility] May 19, 2017 10:21 AM QUIT TOBACCO USE 1-7 YEARS AGO [facility] [place] [facility] Aug 19, 2016 09:56 AM QUIT TOBACCO USE 1-7 YEARS AGO [facility] [place] [facility] Feb 12, 2016 11:34 AM QUIT TOBACCO USE 1-7 YEARS AGO [facility] [place] [facility] Aug 08, 2015 03:04 PM QUIT TOBACCO USE 1-7 YEARS AGO [facility] [place] [facility] Aug 08, 2015 03:04 PM QUIT TOBACCO USE IN PAST YEAR pt states he stooped smmoking in the past yr. [facility] Advance Directives: All historical and current Section Date Range: From patient's date of to the date document was created. This section includes ALL of a patient's completed or amended [place] Advance and Rescinded Directives. The entries below indicate that a directive exists for the patient, but an actual copy is not included with this document. The data comes from all [place] facilities. Date Advance Directives Provider Source Jun 20, 2012 ADVANCE DIRECTIVE DISCUSSION MONIKA IZAGUIRRE [facility] [place] Radiology Reports: +/- 30 [...] the Encounter. The data comes from all [place] treatment facilities. Date/Time Radiology Report Provider Source Jun 14, 2024 10:20 AM LDCT LUNG CANCER SCREENING: SANCHO DYE EDILBERTO [id number] M Ex Date: JUN 14, 2024@10:20 Req Phys: LETICIA WALDEN Loc: [facility]ZC[facility]/NO/LCS ADMIN (Req'g Loc) Img Loc: [facility]/CT Service: Unknown [facility] [address] (Case [id number] COMPLETE) LDCT LUNG CANCER SCREENING (CT Detailed) CPT:77773 Reason for Study: LUNG CANCER SCREENING Clinical History: 53 TPY-Quit 2012 Prior chest imaging: CT scan the chest from May 25, 2022, May 07, 2021, April 29, 2020, April 18, 2019 and December 12, 2017. LCS LDCT on 06/15/2023: LR 1 Report Status: Verified Date Reported: JUN 14, 2024 Date Verified: JUN 14, 2024 [employer] E-Sig:/ES/MIRTA NAVAS JR Report: Study: Lung cancer [...] reviewed. Secondary computer-aided detection with post-processing from [employer] is used. The lack of intravenous contrast [...] Primary Interpreting Staff: MIRTA NAVAS JR, Radiologist ([employer]) /MIRTA CASIANO JR [facility] Encounter Notes: All associated encounter notes This section contains the clinical notes associated to the Encounter. Date/Time Encounter Note(s) Provider Source May 21, 2024 02:55 PM OCCUPATIONAL THERAPY NOTE: LOCAL TITLE: OCCUPATIONAL THERAPY STANDARD TITLE: OCCUPATIONAL THERAPY NOTE DATE OF NOTE: MAY 21, 2024@14:55 ENTRY DATE: MAY 21, 2024@14:55:22 AUTHOR: PAM JEFFERSON COSIGNER: URGENCY: STATUS: COMPLETED Initial Evaluation date: Mar Progress Note Date: Treatment #: 6 Treatment time: 30 minutes Diagnosis: Pain in left Shoulder(ICD-10-CM M25.512) Provider: Irma DIAZ Treatment Precautions: Patient identified by full name and date of SUBJECTIVE: Pt reports that his shoulder has been a little sore since the last visit. It seems to hurt in his armpit and wrist. Pain level: 2-3/10 at rest OBJECTIVE: THERAPEUTIC EXERCISE: *UBE 2' forward, 2' backward 2.0 *pulleys into flexion w/ 10 second hold, 1x10 *wall slides into flexion, 1x10 *pec stretch in doorway, 30 seconds x3 *supine chest press, 1x10 *supine shoulder flexion, 1x10 ADDED: *ABC's in supine, x1 Access Code: [email or web address] URL: [email or web address] / Date: 05/01/2024 Prepared by: PARUL [facility] Exercises - Seated Shoulder Flexion AAROM with [...] tx well this date. he continues to have low level of pain. focused mostly on AAROM and mobilization to anterior shoulder musculature. pt denied increased pain following tx. PLAN: continue w/ OT POC; modify tx as needed. pt is in agreement w/ this POC. /glenis/ Pam Jefferson, MS OTR/L, CHT Occupational Therapist Signed: 05/21/2024 15:30 PAM JEFFERSON [place] [facility] [facility]
--- OUTSIDE RECORDS SUMMARY | 2024-11-11 14:59 | XMS_ITS | Encounter Summary ---
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 Name Role Phone LETICIA WALDEN [...] PART B Apr 24, 2013 PART B [id number] [phone] KLEBER DYE RY PATIENT MEDICARE (WNR) MEDICARE () PART B Apr 24, 2013 PART B [id number] KLEBER DYE RY PATIENT MEDICARE (WNR) MEDICARE () PART B Apr 24, 2013 PART B [id number] KLEBER DYE RY PATIENT MEDICARE (WNR) MEDICARE () PART A November 23, 2011 PART A [id number] KLEBER DYE RY PATIENT MEDICARE (WNR) MEDICARE () PART A November 23, 2011 PART A [id number] KLEBER DYE RY PATIENT MEDICARE (WNR) MEDICARE () PART A November 23, 2011 PART A [id number] KLEBER DYE PATIENT [employer] [place] [employer] [place] [employer] PLAN G PLAN G Apr 24, 2013 PLAN G [id number] [phone] KLEBER DYE PATIENT [employer] [place] [employer] [place] [employer] PLAN G PLANG Apr 24, 2013 PLANG [id number] KLEBER DYE PATIENT [employer] [place] [employer] [place] [employer] PLAN G Apr 24, 2013 PLANG [id number] KLEBER DYE PATIENT Selected Encounter This section includes the information on record at [place] for the Encounter. Date/Time Encounter Type Encounter Description Reason Provider Source Aug 10, 2024 10:00 AM THERAPEUTIC EXERCISES OCCUPATIONAL THERAPY ICD-10-CM M25.512 Pain in left shoulder BRALUIO JEFFERSONLIE Greta IHGreta Encounter Template Text not used by [place] Assessments - Encounter Diagnoses This section includes the primary and secondary diagnoses documented for the Encounter. Date/Time Primary/Secondary Diagnosis Diagnosis Name Provider Source Aug 29, 2024 04:17 PM PRIMARY Pain in left shoulder RONNYPAM E [place] [facility] [facility] Plan of Treatment: Future Appointments (+ 6 months) and Future Tests (+/- 45 days) The Plan of Treatment section includes future care activities for the patient from all [place] treatmentfacilities. This section includes future appointments and future orders which are active, pending or scheduled. Future Appointments This section includes appointments that were scheduled to occur 6 months from the date of the Encounter, up to a maximum of 20 appointments. The data comes from all [place] treatment facilities. Appointment Date/Time Appointment Type Appointme nt Facility Name Aug 14, 2024 11:00 AM AMBULATORY - MEDICINE [place] [facility] [facility] Aug 27, 2024 11:00 AM AMBULATORY - NONE [place] [facility] [place] [facility] Aug 28, 2024 10:30 AM AMBULATORY - REHAB MEDICIN E [place] [facility] [facility] Sep 12, 2024 01:00 PM AMBULATORY - REHAB MEDICIN E [facility] [place] [facility] Oct 04, 2024 03:00 PM AMBULATORY - [facility]INE [facility] [place] [facility] Oct 16, 2024 10:00 AM AMBULATORY - MEDICINE [facility] C [facility] [place] [facility] December 12, 2024 11:30 AM AMBULATORY - MEDICINE [facility] C [facility] [place] [facility] Dec 25, 2024 01:00 PM AMBULATORY - MEDICINE [facility] C [facility] [place] [facility] Jan 01, 2025 09:00 AM AMBULATORY - MEDICINE [facility] [place] [facility] Social History: Smoking Status (Most current) and Tobacco Use (All prior to encounter date) This section includes the most current, and the historical, smoking and tobacco- related health factors from the [place] facility where the Encounter took place. Current Smoking Status This section includes the most current smoking, or tobacco-related health factor, from the [place] facility where the Encounter took place. Date/Time Current Smoking Status Comment [facility] Apr 23, 2024 10:00 AM VA-TOBACCO FORMER USER [facility] [place] [facility] Tobacco Use History This section includes a history of the smoking, or tobacco-related health factors, that were collected on or before the date of the Encounter. The data comes from the [place] facility where the Encounter took place. Date/Time Smoking Status/Tobac co Use Comment Facility Apr 23, 2024 10:00 AM VA-TOBACCO QUIT 5 TO < 15 YRS [facility] [place] [facility] Apr 13, 2023 11:00 AM VA-TOBACCO FORMER USER [facility] [place] [facility] Apr 13, 2023 11:00 AM VA-TOBACCO QUIT 5 TO < 15 YRS [facility] [place] [facility] Apr 14, 2022 01:30 PM VA-TOBACCO FORMER USER [facility] [facility] Apr 14, 2022 01:30 PM VA-TOBACCO QUIT 5 TO < 15 YRS [facility] [place] [facility] Apr 10, 2021 10:00 AM VA-TOBACCO FORMER USER [facility] [facility] Apr 10, 2021 10:00 AM VA-TOBACCO QUIT 5 TO < 15 YRS [facility] [place] [facility] Apr 02, 2020 10:30 AM VA-TOBACCO FORMER USER [facility] [facility] Apr 02, 2020 10:30 AM VA-TOBACCO QUIT 5 TO < 15 YRS [facility] [place] [facility] Sep 29, 2018 08:52 AM VA-[facility]ACCO [facility] Sep 29, 2018 08:52 AM VA-TOBACCO QUIT 15 YRS OR MORE [facility] December 21, 2017 12:27 PM QUIT TOBACCO USE 1-7 YEARS AGO 5 or 6 years ago [facility] May 19, 2017 10:21 AM QUIT TOBACCO USE 1-7 YEARS AGO [facility] Aug 19, 2016 09:56 AM QUIT TOBACCO USE 1-7 YEARS AGO [facility] Feb 12, 2016 11:34 AM QUIT TOBACCO USE 1-7 YEARS AGO [facility] Aug 08, 2015 03:04 PM QUIT TOBACCO USE 1-7 YEARS AGO [facility] Aug 08, 2015 03:04 PM QUIT TOBACCO USE IN PAST YEAR pt states he stooped smmoking in the past yr. [facility] Advance Directives: All historical and current Section Date Range: From patient's date of to the date document was created. This section includes ALL of a patient's completed or amended [place] Advance and Rescinded Directives. The entries below indicate that a directive exists for the patient, but an actual copy is not included with this document. The data comes from all [place] facilities. Date Advance Directives Provider Source Jun 20, 2012 ADVANCE DIRECTIVE DISCUSSION MONIKA IZAGUIRRE [facility] Encounter Notes: All associated encounter notes This [...] flexion w/ green band, 2x10 Access Code: [email or web address] URL: [email or web address] Date: 07/10/2024 Prepared by: [facility] Exercises - Seated Shoulder Flexion AAROM [...] Signed: 08/10/2024 14:38 PAM JEFFERSON [facility]
--- OUTSIDE RECORDS SUMMARY | 2024-11-11 14:59 | XMS_ITS ---
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 Name Role Phone LETICIA WALDEN Primary Care [...] PART B Apr 24, 2013 PART B [id number] KLEBER DYE RY PATIENT MEDICARE (WNR) MEDICARE () PART B Apr 24, 2013 PART B [id number] KLEBER DYE RY PATIENT MEDICARE (WNR) MEDICARE () PART B Apr 24, 2013 PART B [id number] KLEBER DYE RY PATIENT MEDICARE (WNR) MEDICARE () PART A November 23, 2011 PART A [id number] 80A KLEBER DYE RY PATIENT MEDICARE (WNR) MEDICARE () PART A November 23, 2011 PART A [id number] KLEBER DYE RY PATIENT MEDICARE (WNR) MEDICARE () PART A November 23, 2011 PART A [id number] KLEBER DYE PATIENT [employer] PLAN G PLAN G Apr 24, 2013 PLAN G [id number] KLEBER DYE PATIENT [employer] PLAN G PLANG Apr 24, 2013 PLANG [id number] KLEBER DYE PATIENT [employer] PLAN G Apr 24, 2013 PLANG [id number] KLEBER DYE PATIENT Selected Encounter This section includes the information on record at [place] for the Encounter. Date/Time Encounter Type Encounter Description Reason Provider Source Mar 09, 2024 01:00 PM MANUAL THERAPY 1/> [facility] TIMEKEEPER ICD-10-CM M54.2 Cervicalgia MICHELLE TAVARES Greta Encounter Template Text not used by [place] Assessments - Encounter Diagnoses This section includes the primary and secondary diagnoses documented for the Encounter. Date/Time Primary/Secondary Diagnosis Diagnosis Name Provider Source Mar 30, 2024 06:22 AM PRIMARY CervicalMICHELLE Hand [place] [facility] [place] [facility] Plan of Treatment: Future Appointments (+ 6 months) and Future Tests (+/- 45 days) The Plan of Treatment section includes future care activities for the patient from all [place] treatmentfacilities. This section includes future appointments and future orders which are active, pending or scheduled. Future Appointments This section includes appointments that were scheduled to occur 6 months from the date of the Encounter, up to a maximum of 20 appointments. The data comes from all [place] treatment facilities. Appointment Date/Time Appointment Type Appointme nt Facility Name Mar 13, 2024 10:30 AM AMBULATORY - [facility] [place] [facility] Mar 14, 2024 02:30 PM AMBULATORY - REHAB MEDICIN E [facility] [place] [facility] Mar 16, 2024 10:30 AM [place] [facility] [place] [facility] Mar 20, 2024 09:30 AM [place] [facility] [place] [facility] Mar 23, 2024 10:30 AM [place] [facility] [place] [facility] Mar 29, 2024 11:30 AM AM[place] [place]INE [place] [facility] [place] [facility] Mar 30, 2024 09:00 AM AM[facility]ULATORY [place] [facility]ICINE [place] [facility] [place] [facility] Apr 03, 2024 11:30 AM AM[place]ORY [place]ICINE [place] [facility] [place] [facility] Apr 03, 2024 12:15 PM AMBULATORY [place] MEDICINE [place] [facility] [place] [facility] Apr 04, 2024 03:00 PM AMBULATORY [facility] MEDICINE [facility] [place] [facility] Apr 06, 2024 10:30 AM AMBULATORY - REHAB MEDICIN E [facility] [place] [facility] Apr 11, 2024 09:30 AM AM[facility]ULATORY [place] MEDICINE [place] [facility] [place] [facility] Apr 16, 2024 03:00 PM AMBULATORY - REHAB MEDICIN E [facility] [place] [facility] Apr 23, 2024 10:00 AM AM[facility]ULATORY [facility] MEDICINE [place] [facility] [place] [facility] Apr 24, 2024 10:00 AM AMBULATORY - REHAB MEDICIN E [facility] [place] [facility] Apr 27, 2024 10:15 AM AM[facility]ULATORY [facility] MEDICINE [place] [facility] [place] [facility] May 01, 2024 10:00 AM AMBULATORY - REHAB MEDICIN E [facility] [place] [facility] May 16, 2024 10:00 AM AMBULATORY - REHAB MEDICIN E [facility] [place] [facility] May 16, 2024 11:00 AM AMBULATORY - REHAB MEDICIN E [facility] [place] [facility] May 21, 2024 03:00 PM AMBULATORY - REHAB MEDICIN E [facility] [place] [facility] Social History: Smoking Status (Most current) [...] AM VA-TOBACCO [facility] Tobacco Use History This section includes a history of the smoking, or tobacco-related health factors, that were collected on or before the date of the Encounter. The data comes from the [place] facility where the Encounter took place. Date/Time Smoking Status/Tobac co Use Comment Facility Apr 13, 2023 11:00 AM VA-TOBACCO QUIT 5 TO < 15 YRS [facility] [place] [facility] Apr 14, 2022 01:30 PM VA-TOBACCO FORMER USER [facility] [place] [facility] Apr 14, 2022 01:30 PM VA-TOBACCO QUIT 5 TO < 15 YRS [facility] [place] [facility] Apr 10, 2021 10:00 AM VA-TOBACCO FORMER USER [facility] [place] [facility] Apr 10, 2021 10:00 AM VA-TOBACCO QUIT 5 TO < 15 YRS [facility] [place] [facility] Apr 02, 2020 10:30 AM VA-TOBACCO FORMER USER [place] [facility] [place] [facility] Apr 02, 2020 10:30 AM VA-TOBACCO QUIT 5 TO < 15 YRS [place] [facility] [place] [facility] Sep 29, 2018 08:52 AM VA-TOBACCO FORMER USER [place] [facility] [place] [facility] Sep 29, 2018 08:52 AM VA-TOBACCO QUIT 15 YRS OR MORE [facility] [place] [facility] December 21, 2017 12:27 PM QUIT TOBACCO USE 1-7 YEARS AGO 5 or 6 years ago [facility] [place] [facility] May 19, 2017 10:21 AM QUIT TOBACCO USE 1-7 YEARS AGO [facility] [place] [facility] Aug 19, 2016 09:56 AM QUIT TOBACCO USE 1-7 YEARS AGO [facility] [place] [facility] Feb 12, 2016 11:34 AM QUIT TOBACCO USE 1-7 YEARS AGO [facility] [place] [facility] Aug 08, 2015 03:04 PM QUIT TOBACCO USE 1-7 YEARS AGO [facility] [place] [facility] Aug 08, 2015 03:04 PM QUIT TOBACCO USE IN PAST YEAR pt states he stooped smmoking in the past yr. [place] [facility] [place] [facility] Advance Directives: All historical and current Section Date Range: From patient's date of to the date document was created. This section includes ALL of a patient's completed or amended [place] Advance and Rescinded Directives. The entries below indicate that a directive exists for the patient, but an actual copy is not included with this document. The data comes from all [place] facilities. Date Advance Directives Provider Source Jun [...] the Encounter. The data comes from all [place] treatment facilities. Date/Time Radiology Report Provider Source Mar 09, 2024 09:52 AM SPINE CERVICAL, 4 OR 5 VIEWS: SANCHO DYE EDILBERTO [id number] -[id number] M Ex Date: MAR 09, 2024@09:52 Req Phys: BRYANNA MOORE Loc: CWM/NO/SICK CALL PA (Req'g Loc Img Loc: [facility]/BUILDING 1 Service: [place] [address] (Case [id number] COMPLETE) SPINE CERVICAL, 4 OR 5 VIEWS (RAD Detailed) CPT:18673 Reason for Study: pain with radiating features to the left shoulder Clinical History: Report Status: Verified Date Reported: MAR 09, 2024 Date Verified: MAR 09, 2024 Tech Writer E-Sig:/ES/MIRTA NAVAS JR Report: Study: AP, lateral [...] Primary Interpreting Staff: MIRTA NAVAS JR, Radiologist (Tech Writer) /MIRTA CASIANO JR [place] [facility] Encounter Notes: All associated encounter notes This section contains the clinical notes associated to the Encounter. Date/Time Encounter Note(s) Provider Source Mar 09, 2024 01:25 PM CHIROPRACTIC NOTE: LOCAL TITLE: CHIROPRACTOR PROGRESS NOTE STANDARD TITLE: CHIROPRACTIC NOTE DATE OF NOTE: MAR 09, 2024@13:25 ENTRY DATE: MAR 09, 2024@13:25:20 AUTHOR: MICHELLE TAVARES COSIGNER: URGENCY: STATUS: COMPLETED [...] 06/24/2023 LETICIA WALDEN AF- Atrial Fibrillation (SCT [id number] 12/23/2017 LETICIA WALDEN Coronary artery disease I25.10, [...] R shoulder Takes anti-coagulants Patient [place] [facility] [place] [facility] with report of persistent pain in his neck and upper trapezius. Extension of neck and raising his left are exacerbates the sx. He reports that he [...] of cortisone which alleviated the sx. 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 Visit 11 F/U 2 next week Seek urgent care as needed. CMT: chiropractic manipulative therapy SMT: Spinal Manipulative Therapy F/D: Flexion Distraction MFR: Myofascial Release S-I: Sacroiliac MFTP: Myofascial Trigger Point NRS: Numeric Rating Scale N/T: Numbness/Tingling PIR: Post isometric relaxation /es/ MICHELLE TAVARES D.C. CHIROPRACTOR Signed: 03/09/2024 13:45 MICHELLE TAVARES [facility]
--- OUTSIDE RECORDS SUMMARY | 2024-11-11 14:59 | XMS_ITS | Encounter Summary ---
Author Name [facility] [place] Address [address] [place] [address] Care Team Providers Care Processing Talc And Borate Supervisor Name Role Phone LETICIA WALDEN Primary [...] PART B Apr 24, 2013 PART B [id number] KLEBER DYE RY PATIENT MEDICARE (WNR) MEDICARE () PART B Apr 24, 2013 PART B [id number] [id number] [phone] [id number] KLEBER DYE RY PATIENT MEDICARE (WNR) MEDICARE () PART B Apr 24, 2013 PART B [id number] KLEBER DYE RY PATIENT MEDICARE (WNR) MEDICARE () PART A November 23, 2011 PART A [id number] KLEBER DYE RY PATIENT MEDICARE (WNR) MEDICARE () PART A November 23, 2011 PART A [id number] KLEBER DYE RY PATIENT MEDICARE (WNR) MEDICARE () PART A November 23, 2011 PART A [id number] NH28 KLEBER DYE PATIENT [employer] [place] [employer] PLAN G PLAN G Apr 24, 2013 PLAN G [id number] KLEBER DYE PATIENT [employer] [place] [employer] PLAN G Apr 24, 2013 PLANG [id number] KLEBER DYE PATIENT [employer] [place] [employer] PLAN G PLANG Apr 24, 2013 PLANG [id number] KLEBER DYE PATIENT Selected Encounter This section includes the information on record at [place] for the Encounter. Date/Time Encounter Type Encounter Description Reason Provider Source May 29, 2024 10:30 AM THERAPEUTIC EXERCISES OCCUPATIONAL THERAPY ICD-10-CM M25.512 Pain in left shoulder PAM JEFFERSON IHE Encounter Template Text not used by [place] Assessments - Encounter Diagnoses This section includes the primary and secondary diagnoses documented for the Encounter. Date/Time Primary/Secondary Diagnosis Diagnosis Name Provider Source Jun 09, 2024 07:14 AM PRIMARY Pain in left shoulder BRAULIO JEFFERSONLIE E [place] [facility] [place] [facility] Plan of Treatment: Future Appointments (+ 6 months) and Future Tests (+/- 45 days) The Plan of Treatment section includes future care activities for the patient from all [place] treatmentfacilities. This section includes future appointments and future orders which are active, pending or scheduled. Future Appointments This section includes appointments that were scheduled to occur 6 months from the date of the Encounter, up to a maximum of 20 appointments. The data comes from all [place] treatment facilities. Appointment Date/Time Appointment Type Appointme nt Facility Name Jun 05, 2024 10:00 AM AMBULATORY - [facility] MEDICIN E [facility] [place] [facility] Jun 07, 2024 03:00 PM AMBULATORY - MEDICINE [place] [facility] [place] [facility] Jun 12, 2024 10:00 AM AMBULATORY - REHAB MEDICIN E [facility] [place] [facility] Jun 14, 2024 10:30 AM AMBULATORY - NONE [facility] [place] [facility] Jun 15, 2024 02:00 PM AMBULATORY - MEDICINE [place] [facility] [place] [facility] Jun 26, 2024 10:30 AM AMBULATORY - REHAB MEDICIN E [facility] [place] [facility] Jun 26, 2024 01:00 PM AMBULATORY - MEDICINE [place] [facility] [place] [facility] Jul 03, 2024 10:30 AM AMBULATORY - REHAB MEDICIN E [facility] [place] [facility] Jul 10, 2024 10:30 AM AMBULATORY - REHAB MEDICIN E [facility] [place] [facility] Jul 12, 2024 10:30 AM AMBULATORY - MEDICINE [facility] [place] [facility] Jul 24, 2024 10:00 AM AMBULATORY - REHAB MEDICIN E [facility] [place] [facility] Aug 09, 2024 10:00 AM AMBULATORY - MEDICINE [facility] [place] [facility] Aug 10, 2024 10:00 AM AMBULATORY - REHAB MEDICIN E [facility] [place] [facility] Aug 14, 2024 11:00 AM AMBULATORY - MEDICINE [place] [facility] [place] [facility] Aug 27, 2024 11:00 AM AMBULATORY - NONE [facility] [place] [facility] Aug 28, 2024 10:30 AM AMBULATORY - REHAB MEDICIN E [facility] [place] [facility] Sep 12, 2024 01:00 PM AMBULATORY - REHAB MEDICIN E [facility] [place] [facility] Oct 04, 2024 03:00 PM AMBULATORY - MEDICINE [place] [facility] [place] [facility] Oct 16, 2024 10:00 AM AMBULATORY - MEDICINE [place] [facility] [place] [facility] Social History: Smoking Status (Most current) and Tobacco Use (All prior to encounter date) This section includes the most current, and the historical, smoking and tobacco- related health factors from the [place] facility where the Encounter took place. Current Smoking Status This section includes the most current smoking, or tobacco-related health factor, from the [place] facility where the Encounter took place. Date/Time Current Smoking Status Comment Facil ity Apr 23, 2024 10:00 AM VA-TOBACCO FORMER USER [facility] [place] [facility] Tobacco Use History This section includes a history of the smoking, or tobacco-related health factors, that were collected on or before the date of the Encounter. The data comes from the [place] facility where the Encounter took place. Date/Time Smoking Status/Tobac co Use Comment Facility Apr 23, 2024 10:00 AM VA-TOBACCO QUIT 5 TO < 15 YRS [facility] [place] [facility] Apr 13, 2023 11:00 AM VA-TOBACCO FORMER USER [facility] [place] [facility] Apr 13, 2023 11:00 AM VA-TOBACCO QUIT 5 TO < 15 YRS [facility] [place] [facility] Apr 14, 2022 01:30 PM VA-TOBACCO FORMER USER [facility] [place] [facility] Apr 14, 2022 01:30 PM VA-TOBACCO QUIT 5 TO < 15 YRS [facility] [place] [facility] Apr 10, 2021 10:00 AM VA-TOBACCO FORMER USER [facility] [place] [facility] Apr 10, 2021 10:00 AM VA-TOBACCO QUIT 5 TO < 15 YRS [facility] [place] [facility] Apr 02, 2020 10:30 AM VA-TOBACCO FORMER USER [facility] [place] [facility] Apr 02, 2020 10:30 AM VA-TOBACCO QUIT 5 TO < 15 YRS [facility] [place] [facility] Sep 29, 2018 08:52 AM VA-TOBACCO FORMER USER [facility] [place] [facility] Sep 29, 2018 08:52 AM VA-TOBACCO QUIT 15 YRS OR MORE [facility] [place] [facility] December 21, 2017 12:27 PM QUIT TOBACCO USE 1-7 YEARS AGO 5 or 6 years ago [facility] [place] [facility] May 19, 2017 10:21 AM QUIT TOBACCO USE 1-7 YEARS AGO [facility] [place] [facility] Aug 19, 2016 09:56 AM QUIT TOBACCO USE 1-7 YEARS AGO [facility] [place] [facility] Feb 12, 2016 11:34 AM QUIT TOBACCO USE 1-7 YEARS AGO [facility] [place] [facility] Aug 08, 2015 03:04 PM QUIT TOBACCO USE 1-7 YEARS AGO [facility] [place] [facility] Aug 08, 2015 03:04 PM QUIT TOBACCO USE IN PAST YEAR pt states he stooped smmoking in the past yr. [facility] [place] [facility] Advance Directives: All historical and current Section Date Range: From patient's date of to the date document was created. This section includes ALL of a patient's completed or amended [place] Advance and Rescinded Directives. The entries below indicate that a directive exists for the patient, but an actual copy is not included with this document. The data comes from all [place] facilities. Date Advance Directives Provider Source Jun 20, 2012 ADVANCE DIRECTIVE DISCUSSION MONIKA IZAGUIRRE [facility] [place] Radiology Reports: +/- 30 [...] the Encounter. The data comes from all [place] treatment facilities. Date/Time Radiology Report Provider Source Jun 14, 2024 10:20 AM LDCT LUNG CANCER SCREENING: SANCHO DYE [id number] -[id number] M Exm Date: JUN 14, 2024@10:20 Req Phys: LETICIA WALDEN Loc: ZZCWM/NO/LCS ADMIN (Req'g Loc) Img Loc: [facility]/CT Service: [facility] [place] [address] (Case [id number] COMPLETE) LDCT LUNG CANCER SCREENING (CT Detailed) CPT:02930 Reason for Study: LUNG CANCER SCREENING Clinical History: 53 TPY-Quit 2012 Prior chest imaging: CT scan the chest from May 25, 2022, May 07, 2021, April 29, 2020, April 18, 2019 and December 12, 2017. LCS LDCT on 06/15/2023: LR 1 Report Status: Verified Date Reported: JUN 14, 2024 Date Verified: JUN 14, 2024 Rustic Terrazzo Setter E-Sig:/ES/MIRTA NAVAS JR Report: Study: Lung cancer [...] reviewed. Secondary computer-aided detection with post-processing from gauzz is used. The lack of intravenous contrast [...] Primary Interpreting Staff: MIRTA NAVAS JR, Radiologist (Rustic Terrazzo Setter) /MIRTA CASIANO JR [facility] Encounter Notes: All associated encounter [...] rows w/ blue band, 2x10 Access Code: [email or web address] URL: [email or web address] / Date: 05/01/2024 Prepared by: [facility] Exercises - Seated Shoulder Flexion AAROM with [...] Signed: 05/29/2024 16:14 PAM JEFFERSON [facility]
--- OUTSIDE RECORDS SUMMARY | 2024-11-11 14:59 | XMS_ITS | Encounter Summary ---
Author Name [facility] [place] [facility] [place] [place] Address [address] [place] [address] Care Team Providers Care Sales Account Director Name Role Phone LETICIA WALDEN Primary Care [...] PART B Apr 24, 2013 PART B [id number] KLEBER DYE RY PATIENT MEDICARE (WNR) MEDICARE () PART B Apr 24, 2013 PART B [id number] [facility] [phone] KLEBER DYE RY PATIENT MEDICARE (WNR) MEDICARE () PART B Apr 24, 2013 PART B [id number] KLE[place] DYE RY PATIENT MEDICARE (WNR) MEDICARE () PART A November 23, 2011 PART A [id number] KLEBER DYE RY PATIENT MEDICARE (WNR) MEDICARE () PART A November 23, 2011 PART A [id number] [phone] KLEBER DYE RY PATIENT MEDICARE (WNR) MEDICARE () PART A November 23, 2011 PART A [id number] KLEBER DYE PATIENT [employer] [place] PLAN G PLAN G Apr 24, 2013 PLAN G [id number] [phone] KLEBER DYE PATIENT [employer] [place] PLAN G Apr 24, 2013 PLANG [id number] KLEBER DYE PATIENT [employer] [place] [employer] PL[employer] G PLANG Apr 24, 2013 PLANG [id number] KLEBER DYE PATIENT Selected Encounter This section includes the information on record at [place] for the Encounter. Date/Time Encounter Type Encounter Description Reason Provider Source Jan 12, 2024 11:30 AM OFFICE O/P EST LOW 20 MIN OPTOMETRY ICD-10-CM L71.8 Other [facility] Encounter Template Text not used by [place] Assessments - Encounter Diagnoses This section includes the primary and secondary diagnoses documented for the Encounter. Date/Time Primary/Secondary Diagnosis Diagnosis Name Provider Source Feb 08, 2024 08:13 AM PRIMARY Other [facility] [place] [facility] Feb 08, 2024 08:13 AM SECONDARY Combined forms of age-related cataract, bilateral [facility] RE[facility] [place] [facility] Feb 08, 2024 08:13 AM SECONDARY Meibomian gland dysfnct left eye, upper and lower eyelids [facility] RE[facility] [place] [facility] Feb 08, 2024 08:13 AM SECONDARY Meibomian gland dysfnct right eye, upper and lower eyelids [facility] RE[facility] [place] [facility] Feb 08, 2024 08:13 AM SECONDARY Other localized visual field defect, left eye [facility] RE[facility] [place] [facility] Feb 08, 2024 08:13 AM SECONDARY Retinal artery branch occlusion, left eye [facility] [place] [facility] Plan of Treatment: Future Appointments (+ 6 months) and Future Tests (+/- 45 days) The Plan of Treatment section includes future care activities for the patient from all VA treatmentfacilities. This section includes future appointments and future orders which are active, pending or scheduled. Future Appointments This section includes appointments that were scheduled to occur 6 months from the date of the Encounter, up to a maximum of 20 appointments. The data comes from all [place] treatment facilities. Appointment Date/Time Appointment Type Appointme nt Facility Name Jan 30, 2024 11:00 AM AMBULATORY - MEDICINE [facility] [place] [facility] Feb 06, 2024 02:30 PM AMBULATORY - MEDICINE [facility] [place] [facility] Feb 23, 2024 09:30 AM AMBULATORY - MEDICINE [facility] [place] [facility] Feb 24, 2024 09:00 AM AMBULATORY - MEDICINE [facility] [place] [facility] Feb 24, 2024 11:30 AM AMBULATORY - REHAB MEDICIN E [facility] [place] [facility] Mar 06, 2024 11:00 AM AMBULATORY - REHAB MEDICIN E [facility] [place] [facility] Mar 06, 2024 01:00 PM AMBULATORY - MEDICINE [facility] [place] [facility] Mar 06, 2024 02:30 PM AMBULATORY - MEDICINE [facility] [place] [facility] Mar 09, 2024 10:30 AM AMBULATORY - MEDICINE [facility] [place] [facility] Mar 09, 2024 01:00 PM AMBULATORY - MEDICINE [facility] [place] [facility] Mar 13, 2024 10:30 AM AMBULATORY - REHAB MEDICIN E [facility] [place] [facility] Mar 14, 2024 02:30 PM AMBULATORY - REHAB MEDICIN E [facility] [place] [facility] Mar 16, 2024 10:30 AM AMBULATORY - MEDICINE [facility] [place] [facility] Mar 20, 2024 09:30 AM AMBULATORY - MEDICINE [facility] [place] [facility] Mar 23, 2024 10:30 AM AMBULATORY - MEDICINE [facility] [place] [facility] Mar 29, 2024 11:30 AM AMBULATORY - MEDICINE [facility] [place] [facility] Mar 30, 2024 09:00 AM AMBULATORY - MEDICINE [facility] [place] [facility] Apr 03, 2024 11:30 AM AMBULATORY - MEDICINE [facility] [place] [facility] Apr 03, 2024 12:15 PM AMBULATORY - MEDICINE [facility] [place] [facility] Apr 04, 2024 03:00 PM AMBULATORY - MEDICINE [facility] [place] [facility] Social History: Smoking Status (Most current) [...] took place. Date/Time Current Smoking Status Comment [facility] Apr 13, 2023 11:00 AM VA-TOBACCO FORMER USER [place] [facility] [place] [facility] Tobacco Use History This section includes a history of the smoking, or tobacco-related health factors, that were collected on or before the date of the Encounter. The data comes from the [place] facility where the Encounter took place. Date/Time Smoking Status/Tobac co Use Comment Facility Apr 13, 2023 11:00 AM VA-TOBACCO QUIT 5 TO < 15 YRS [facility] [place] [facility] Apr 14, 2022 01:30 PM VA-TOBACCO FORMER USER [facility] [place] [facility] Apr 14, 2022 01:30 PM VA-TOBACCO QUIT 5 TO < 15 YRS [facility] [place] [facility] Apr 10, 2021 10:00 AM VA-TOBACCO FORMER USER [facility] [place] [facility] Apr 10, 2021 10:00 AM VA-TOBACCO QUIT 5 TO < 15 YRS [facility] [place] [facility] Apr 02, 2020 10:30 AM VA-TOBACCO FORMER USER [facility] [place] [facility] Apr 02, 2020 10:30 AM VA-TOBACCO QUIT 5 TO < 15 YRS [facility] [place] [facility] Sep 29, 2018 08:52 AM VA-TOBACCO FORMER USER [facility] [place] [facility] Sep 29, 2018 08:52 AM VA-TOBACCO QUIT 15 YRS OR MORE [facility] [place] [facility] December 21, 2017 12:27 PM QUIT TOBACCO USE 1-7 YEARS AGO 5 or 6 years ago [facility] [place] [facility] May 19, 2017 10:21 AM QUIT TOBACCO USE 1-7 YEARS AGO [facility] [place] [facility] Aug 19, 2016 09:56 AM QUIT TOBACCO USE 1-7 YEARS AGO [facility] [place] [facility] Feb 12, 2016 11:34 AM QUIT TOBACCO USE 1-[facility] Aug 08, 2015 03:04 PM QUIT TOBACCO USE 1-7 YEARS A[facility] Aug 08, 2015 03:04 PM QUIT TOBACCO USE IN PAST YEAR pt states he stooped smmoking in the past yr. [facility] Advance Directives: All historical and [...] 20, 2012 ADVANCE DIRECTIVE DISCUSSION MONIKA IZAGUIRRE [facility] Encounter Notes: All associated encounter notes This section contains the clinical notes associated to the Encounter. Date/Time Encounter Note(s) Provider Source Jan 12, 2024 12:17 PM OPTOMETRY NOTE: LOCAL TITLE: OPTOMETRY NOTE STANDARD TITLE: OPTOMETRY NOTE DATE OF NOTE: JAN 12, 2024@12:17 ENTRY DATE: JAN 12, 2024@12:17:24 AUTHOR: JUANITA REYES COSIGNER: URGENCY: STATUS: COMPLETED I saw this patient in conjunction with the student and agree with stated findings and plan as noted below after reviewing both the history and repeating cano elements of the physical exam now. 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 More recently there has been a small area on the optic nerve left eye at 4:00 suggestive of NVE. 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 Dilated fundus examination shows healthy optic nerve head appearance right eye expected disc pallor left eye with sclerosed vessel on the optic nerve with questionable area of NVE at 4:00 as previously noted in. Unchanged in size or caliber compared to fundus photos previously taken on September 27, 2023. Remainder of retinal examination each eye is unremarkable. 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 Nuclear sclerotic and cortical cataracts each eye functioning well visually at present. 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 Expected corresponding superior field defect left eye corresponding to area of inferior branch retinal artery occlusion as previously noted. Plan: Patient education as noted above we will continue to monitor closely for neovascularization of the disc, neovascularization elsewhere or neovascularization of the iris left eye. Return no later than April 03, 2023 or repeat dilation or sooner if need be. Ophthalmic medication reconciliation he is currently not taking or prescribed any ocular medications. Medication Reconciliation: Outpatient: Has the patient been taking medications as documented in the EMLR? YES: The patient has been taking medications as documented in the EMLR. Essential Medication List for Review used to complete this medication reconciliation. INCLUDED IN THIS LIST: Alphabetical list of active outpatient prescriptions dispensed from this [facility] (local) and dispensed from another [place] or [facility] facility (remote) as well as inpatient orders [...] JLV. Allergies/ADRs (Tool #5) FACILITY ALLERGY/ADR -------- [facility] NO KNOWN ALLERGIES [facility] [place] [facility] No Known Allergies Med [facility] Lulselin (Tool #1) INCLUDED IN THIS LIST: Alphabetical list of active outpatient prescriptions dispensed from this [place] (local) and dispensed from another [place] or [facility] facility (remote) as well as inpatient orders (local pending and active), local clinic medications, locally documented non-VA medications, and local prescriptions that have or been discontinued in the past 90 days. Non-VA Meds Last Documented On: December 13, 2016 NOTE The display of VA prescriptions dispensed from another [place] or [facility] facility (remote) is limited to active outpatient prescription entries matched to National Drug File at the originating site and may not include some items such as investigational drugs, compounds, etc. NOT INCLUDED IN THIS LIST: Medications self-entered by the patient into personal health records (i.e. [employer]) are NOT included in this list. Non-VA medications documented outside this [place], remote inpatient orders (regardless of status) and remote clinic medications are NOT included in this list. The patient and provider must always discuss medications the patient is taking, regardless of where the medication was dispensed or obtained. OUTPT ACETAMINOPHEN 325MG TAB (Status = Active) TAKE TWO TABLETS BY MOUTH FOUR TIMES DAILY NEEDED Rx# [id number] Last Released: 11/01/23 Qty/Days Supply: Rx Expiration Date: 09/21/24 Refills Remainin Indication: FOR PAIN OUTPT ALLOPURINOL 300MG TAB (Status = Active) TAKE ONE TABLET BY MOUTH EVERY DAY FOR GOUT Rx# [id number] Last Released: 12/22/23 Qty/Days Supply: Rx Expiration Date: 10/09/24 Refills Remainin OUTPT APIXABAN 5MG TAB (Status = Active) TAKE ONE TABLET BY MOUTH TWICE DAILY Rx# [id number] Last Released: 10/25/23 Qty/Days Supply: 180 Rx Expiration Date: 07/31/24 Refills Remainin OUTPT ATORVASTATIN CALCIUM 40MG TAB (Status = Active) TAKE ONE TABLET BY MOUTH AT BEDTIME FOR CHOLESTEROL Rx# [id number] Last Released: 10/05/23 Qty/Days Supply: 90 Rx Expiration Date: 07/22/24 Refills Remainin OUTPT CILOSTAZOL 50MG TAB (Status = Active) TAKE ONE TABLET BY MOUTH TWICE DAILY -TAKE 30 MINUTES BEFORE MEALS OR TWO HOURS AFTER MEALS Rx# [id number] Last Released: 12/22/23 Qty/Days Supply: 180 Rx Expiration Date: 10/09/24 Refills Remainin OUTPT CLOPIDOGREL BISULFATE 75MG TAB (Status = Active) TAKE ONE TABLET BY MOUTH EVERY DAY Rx# [id number] Last Released: 01/11/24 Qty/Days Supply: Rx Expiration Date: 10/09/24 Refills Remainin OUTPT CYCLOBENZAPRINE HCL 10MG TAB (Status = Active) TAKE ONE TABLET BY MOUTH THREE TIMES DAILY NEEDED Rx# [id number] Last Released: 11/01/23 Qty/Days Supply: Rx Expiration Date: 09/21/24 Refills Remainin Indication: FOR MUSCLE SPASM OUTPT LOSARTAN 100MG TAB (Status = Active) TAKE ONE TABLET BY MOUTH ONCE DAILY FOR BLOOD PRESSURE/HEART Rx# [id number] Last Released: 12/22/23 Qty/Days Supply: Rx Expiration Date: 10/09/24 Refills Remainin OUTPT METOPROLOL SUCCINATE 100MG SA TAB (Status = ) TAKE ONE TABLET BY MOUTH ONCE DAILY FOR BLOOD PRESSURE/HEART DISCONTINUE 25 MG TABLET UNLESS PROVIDER HAS TOLD YOU OTHERWISE Rx# [id number] Last Released: 10/11/23 Qty/Days Supply: Rx Expiration Date: 11/26/23 Refills Remainin OUTPT METOPROLOL SUCCINATE 100MG SA TAB (Status = Active) TAKE ONE TABLET BY MOUTH ONCE DAILY FOR BLOOD PRESSURE/HEART Rx# [id number] Last Released: 12/22/23 Qty/Days Supply: 90 Rx Expiration Date: 12/20/24 Refills Remainin OUTPT MULTIVITAMIN/MINERALS CAP/TAB (Status = Active) TAKE 1 TABLET BY MOUTH EVERY DAY FOR VITAMIN SUPPLEMENTATION Rx# [id number] Last Released: 11/30/23 Qty/Days Supply: Rx Expiration Date: 08/18/24 Refills Remainin OUTPT PANTOPRAZOLE NA 20MG EC TAB (Status = Active) TAKE ONE TABLET BY MOUTH EVERY DAY Rx# [id number] Last Released: 01/11/24 Qty/Days Supply: Rx Expiration Date: 08/08/24 Refills Remainin OUTPT TAMSULOSIN HCL 0.4MG CAP (Status = Active/Suspended) TAKE ONE CAPSULE BY MOUTH AT BEDTIME FOR ENLARGED PROSTATE Rx# [id number] Last Released: 10/25/23 Qty/Days Supply: Rx Expiration Date: 08/08/24 Refills Remainin Indication: FOR ENLARGED PROSTATE SUPPLIES Declines printed copy of medication list now. Total time spent reviewing previous records, examining patient and entering orders 29 minutes /glenis/ Juanita Reyes OD CHIEF OF OPTOMETRY Signed: 01/14/2024 09:33 JUANITA REYES [facility] [place] [facility] Jan 12, 2024 11:24 AM OPTOMETRY NOTE: LOCAL TITLE: OPTOMETRY NOTE STANDARD TITLE: OPTOMETRY NOTE DATE OF NOTE: JAN 12, 2024@11:24 ENTRY DATE: JAN 12, 2024@11:24:40 AUTHOR: KUN GARCIA EXP COSIGNER: JUANITA REYES URGENCY: STATUS: COMPLETED Active problems - Computerized Problem List is the source for the followin. Shoulder pain 2. Cerebral infarction 3. Exposure to potentially hazardous substance 4. Benign Prostatic Hypertrophy without Outflow Obstruction ([facility] [id number]) 5. Impaired fasting glucose 6. Chronic dermatitis 7. AF- Atrial Fibrillation ([facility] [id number]) 8. Coronary artery disease 9. Essential hypertension [...] TAKE ONE CAPSULE BY MOUTH AT ACTIVE (S) BEDTIME FOR ENLARGED PROSTATE Allergies: Patient has answered NKA All medications including those prescribed by outside VA's, community providers, and all OTC meds were reviewed and reconciled with patient to the best of their abilities. This 78 year old MALE is seen today for DFE. Chief Complaint: Patient reports no major changes since TORO. Patient still reports field loss in upper left visual field, stable. Patiet reports his glasses keep slipping down his nose. Last week saw Cardiology for a carotid doppler. OHx: inferior BRAO OS - history of TIA hollenhorst plaque - 6:30 ONH, possibly NVD 4:00 Cataracts OU Rosacea with rhinophyma and MGD OU (-) Pain: (-) SHIPMAN: (-) Diplopia: (-) Flashes: (-) Floaters: (+) Amaurosis Fugax/Tia's: refer above history (-) Eye Injury: (-) Eye Surgery: (-) TBI FOHx: (-) Glaucoma/ARMD/Blindness (-) Smoker/Length of Time/PPD: Current Rx with last BCVA: OD: +1.00 -0.25 axis 115 20/20 OS: +1.25 -0.25 axis 070 20/20 +2.75 add 20/20 DVA ( )sc ( x )cc OD: 20/20-- OS: 20/20-- Pupils: PERRL (-)APD EOMs: SAFE OU, (-)Pain/Diplopia CVF (facial, peripheral): FTFC OD, superior field loss OS All the above performed by student, reviewed by attending Anterior segment: Performed by student, repeated by attending Lids: dermatochalasis OU Conj: tr injection OU Cornea: clear OU AC: 4x4 OU Iris: flat and clear OU Lens: 1+ NS OU, 1+ cortical OS>OD Tonometry: Performed by student, reviewed by attending OD 14 mmHg OS 15 mmHg Time: 11:37am Fundus exam: Dilated: 11:39am Dilating Drops: 1GTT 1 % Tropicamide OU & 1GTT 2.5% Phenylephrine OU (Pt. ed. on side effects, dilation warning given and verbal consent obtained) Patient advised not to drive if they feel they have any symptoms which could affect their ability to drive safely. Patient advised not to engage in any activities which could put themselves or others at risk if they feel they have any symptoms which could affect their ability to perform those activities safely. Performed by student, repeated by attending Vit: syneresis OU C/D: 0.5V/0.4H OD, 0.65V/0.55H OS, ovoid disc shape OU questionable mild pallor with NVD 4:00 OS Hollenhorst plaque OS at 6:30 Macula: flat and clear OU PPole: clear A/V: 1/2 Vessels: mild arterial attenuation with silver wiring OU Periph: flat and intact (-)holes, tears, detachments 360 OU peripheral pigment changes 360 OU Assessment/Plan: 1. 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 Overall good perfusion of the retina with no NVE noted. Appearance today stable to photos taken previously. Patient educated on findings and condition. Monitor in 2 months with DFE. 2. Early nuclear sclerotic cataracts OU. Patient ed on etiology and symptoms of cataracts. Not visually significant. Monitor. 3. Rosacea with rhinophyma and MGD OU. Patient asymptomatic for dry eye. Monitor as needed. 4. Hyperopia with presbyopia OU. Defer refraction to next CEE in 6 months. Monitor. Return to Clinic 2 months for DFE or earlier PRPaul /glenis/ KUN GARCIA OPTOMETRY STUDENT Signed: 01/12/2024 17:29 /glenis/ Juanita Reyes OD CHIEF OF OPTOMETRY Cosigned: 01/14/2024 09:33 KUN GARCIA [facility]
--- OUTSIDE RECORDS SUMMARY | 2024-11-11 14:59 | XMS_ITS | Encounter Summary ---
Author Name [facility] [place] Address [address] [place] [address] Care Team Providers Care Fuel Efficient Automobile Designer Name Role Phone LETICIA WALDEN Primary Care [...] PART B Apr 24, 2013 PART B [id number] [phone] KLEBER DYE RY PATIENT MEDICARE (WNR) MEDICARE () PART B Apr 24, 2013 PART B [id number] KLEBER DYE RY PATIENT MEDICARE (WNR) MEDICARE () PART B Apr 24, 2013 PART B [id number] [phone] [id number] KLEBER DYE RY PATIENT MEDICARE (WNR) MEDICARE () PART A November 23, 2011 PART A [id number] [phone] [id number] KLEBER DYE RY PATIENT MEDICARE (WNR) MEDICARE () PART A November 23, 2011 PART A [id number] KLEBER DYE RY PATIENT MEDICARE (WNR) MEDICARE () PART A November 23, 2011 PART A [id number] KLEBER DYE PATIENT [employer] [place] [employer] PLAN G PLAN G Apr 24, 2013 PLAN G [id number] KLEBER DYE PATIENT [employer] [place] [employer] PLAN G PLANG Apr 24, 2013 PLANG [id number] KLEBER DYE PATIENT [employer] [place] [employer] PLAN G Apr 24, 2013 PLANG [id number] KLEBER DYE PATIENT Selected Encounter This section includes the information on record at [place] for the Encounter. Date/Time Encounter Type Encounter Description Reason Provider Source Apr 16, 2024 03:00 PM THERAPEUTIC EXERCISES OCCUPATIONAL THERAPY ICD-10-CM M25.512 Pain in left shoulder TAO JEFFERSONE Greta IHE Encounter Template Text not used by [place] Assessments - Encounter Diagnoses This section includes the primary and secondary diagnoses documented for the Encounter. Date/Time Primary/Secondary Diagnosis Diagnosis Name Provider Source Apr 28, 2024 11:46 AM PRIMARY Pain in left shoulder BRAULIO JEFFERSONLIE [facility] Plan of Treatment: Future Appointments (+ 6 months) and Future Tests (+/- 45 days) The Plan of Treatment section includes future care activities for the patient from [facility] [place] [facility] This section includes future appointments and future orders which are active, pending or scheduled. Future Appointments This section includes appointments that were scheduled to occur 6 months from the date of the Encounter, up to a maximum of 20 appointments. The data comes from all [place] treatment facilities. Appointment Date/Time Appointment Type Appointme nt Facility Name Apr 23, 2024 10:00 AM AMBULATORY - MEDICINE [facility] [place] [facility] Apr 24, 2024 10:00 AM AMBULATORY - REHAB MEDICIN E [place] [facility] [facility] Apr 27, 2024 10:15 AM AMBULATORY - MEDICINE [facility] [place] [facility] May 01, 2024 10:00 AM AMBULATORY - REHAB MEDICIN E [place] [facility] [place] [facility] May 16, 2024 10:00 AM AMBULATORY - REHAB MEDICIN E [place] [facility] [place] [facility] May 16, 2024 11:00 AM AMBULATORY - REHAB MEDICIN E [place] [facility] [facility] May 21, 2024 03:00 PM AMBULATORY - REHAB MEDICIN E [facility] [place] [facility] May 29, 2024 10:30 AM AMBULATORY - REHAB MEDICIN E [facility] [place] [facility] Jun 05, 2024 10:00 AM [facility] [place] [facility] Jun 07, 2024 03:00 PM AMBULATORY - MEDICINE [facility] [place] [facility] Jun 12, 2024 10:00 AM AMBULATORY - REHAB MEDICIN E [facility] [facility] Jun 14, 2024 10:30 AM AMBULATORY - NONE [place] [facility] [facility] Jun 15, 2024 02:00 PM AMBULATORY - MEDICINE [facility] [place] [facility] Jun 26, 2024 10:30 AM AMBULATORY - REHAB MEDICIN E [place] [facility] [place] [facility] Jun 26, 2024 01:00 PM AMBULATORY - MEDICINE [facility] [place] [facility] Jul 03, 2024 10:30 AM AMBULATORY - REHAB MEDICIN E [place] [facility] [place] [facility] Jul 10, 2024 10:30 AM AMBULATORY - REHAB MEDICIN E [facility] [place] [facility] Jul 12, 2024 10:30 AM AMBULATORY - MEDICINE [facility] [place] [facility] Jul 24, 2024 10:00 AM AMBULATORY - REHAB MEDICIN E [facility] [facility] Aug 09, 2024 10:00 AM AMBULATORY - MEDICINE [facility] [place] [facility] Lab Results: +/- 30 days of the encounter This section includes the Chemistry and Hematology Lab Results on record with [place] for the patient. Radiology Reports and Pathology Reports are provided separately, in subsequent sections. Lab Results This section contains the Chemistry/Hematology Results that were resulted 30 days before or 30 daysafter the date of the Encounter. Date/Time Source Result Type Result - Unit Interpretation Reference Range Specimen Type Comment Apr 19, 2024 09:58 AM [facility] [place] [facility] BASIC METABOLIC PANEL (fasting) SERUM Specime n Type: SERUM No comment entered. Ordering Provider: LETICIA WALDEN Report Released Date/Time: Apr 14, 2024 05:40 PM Reporting Lab: [address] [address] Performing Lab: [address] [address] UREA NITROGEN 17 mg/dL 7-25 GLUCOSE 103 mg/dL H 65-100 SODIUM 139 mmol/L 135-145 POTASSIUM 4.2 mmol/L 3.5-5.0 CHLORIDE 107 mmol/L 100-110 CO2 25 meq/L 20-30 CREATININE, Serum 1.05 mg/dL 0.50-1.40 eGFR(CKD-EPI 2020) 73 mL/min >60 Apr 19, 2024 09:58 AM [facility] LIVER FUNCTION SERUM Specimen Type: SERUM No comment entered. Ordering Provider: LETICIA WALDEN Report Released Date/Time: Apr 14, 2024 05:40 PM Reporting Lab: [address] [address] Performing Lab: [address] [address] PROTEIN,TOTAL 6.8 g/dL 6.0-8.3 ALBUMIN 3.8 g/dL 3.5-5.0 ALKALINE PHOSPHATASE 69 U/L 40-150 AST 17 U/L 5-34 ALT 27 U/L BILIRUBIN, TOTAL 0.6 mg/dL 0.2-1.2 Apr 19, 2024 09:58 AM [facility] TSH SERUM Specimen Type: SERUM No comment entered. Ordering Provider: LETCIIA WALDEN Report Released Date/Time: Apr 14, 2024 05:40 PM Reporting Lab: [address] [address] Performing Lab: [address] [address] TSH 2.19 u[IU]/mL 0.35-5.00 Apr 19, 2024 09:58 AM [facility] LIPID PANEL FASTING SERUM Specimen Type: SERU M No comment entered. Ordering Provider: LETICIA WALDEN Report Released Date/Time: Apr 14, 2024 05:40 PM Reporting Lab: [facility] [address] [facility] [address] Performing Lab: [address] [address] CHOLESTEROL 120 mg/dL TRIGLYCERIDE 98 mg/dL 0-150 LDL calculated 63 mg/dL 0-129 CHOL/HDL 3.2 HDL CHOLESTEROL 37 mg/dL L 40-60 Apr 19, 2024 09:58 AM [facility] URIC ACID SERUM Specimen Type: SERUM No comment entered. Ordering Provider: LETICIA WALDEN Report Released Date/Time: Apr 14, 2024 05:40 PM Reporting Lab: [address] [address] Performing Lab: [address] [address] URIC ACID 3.1 mg/dL L 3.5-7.2 Apr 19, 2024 09:58 AM [facility] CBC AND DIFF (AUTO) BLOOD Specimen Type: BLOO D No comment entered. Ordering Provider: LETICIA WALDEN Report Released Date/Time: Apr 14, 2024 05:40 PM Reporting Lab: [address] [address] Performing Lab: [address] [address] WBC 6.75 10*3/uL 4.50-11.00 RBC 3.99 10*6/uL [...] 10*3/uL 0.00-0.00 Apr 19, 2024 09:58 AM [facility] URINALYSIS CLEAN CATCH URINE Specimen Type: U RINE Comment: If Glucose = >500 and Ketones are positive, please alert the Physician. Ordering Provider: LETICIA WALDEN Report Released Date/Time: Apr 14, 2024 05:40 PM Reporting Lab: [address] [address] Performing Lab: [address] [address] UA COLOR Light-Yellow Yellow UA APPEARANCE Clear [...] 13, 2023 11:00 AM VA-TOBACCO FORMER USER [place] [facility] [place] [facility] [...] < 15 YRS [place] [facility] [facility] Apr 02, 2020 10:30 AM VA-TOBACCO FORMER USER [place] [facility] [facility] Apr 02, 2020 10:30 AM VA-TOBACCO QUIT 5 TO < 15 YRS [place] [facility] [place] [facility] [...] yr. [place] [facility] [place] [facility] [...] MONIKA IZAGUIRRE [facility] Encounter Notes: All associated encounter notes This section contains the clinical notes associated to the Encounter. Date/Time Encounter Note(s) Provider Source Apr 16, 2024 02:58 PM OCCUPATIONAL THERAPY NOTE: LOCAL TITLE: OCCUPATIONAL THERAPY STANDARD TITLE: OCCUPATIONAL THERAPY NOTE DATE OF NOTE: APR 16, 2024@14:58 ENTRY DATE: APR 16, 2024@14:58:41 AUTHOR: PAM JEFFERSON COSIGNER: URGENCY: STATUS: COMPLETED Initial Evaluation date: Mar Progress Note Date: Treatment #: 2 Treatment time: 31 minutes Diagnosis: Pain in left Shoulder(ICD-10-CM M25.512) Provider: Irma DIAZ Treatment Precautions: Patient identified by full name and date of SUBJECTIVE: Pt reports that his shoulder is slightly better. Pain level: 6/10 OBJECTIVE: THERAPEUTIC EXERCISE: *UBE 2' forward, 2' backward 1.0 *pulleys into flexion w/ 10 second hold, 1x10 *wall slides into flexion, 1x10 *table slides into flexion, 1x10 ADDED: *pec stretch in doorway, 30 seconds x3 Access Code: [email or web address] URL: [email or web address] Date: 04/16/2024 Prepared by: [facility] Exercises - Seated Shoulder Flexion AAROM with [...] sets - 3 reps - 30 hold MINUTES: 16 MANUAL THERAPY: *mobilization to upper trap/infra and anterior shoulder musculature x8' MINUTES: 8 THERAPEUTIC DYNAMIC ACTIVITIES: MINUTES: NEUROMUSCULAR EDUCATION: MINUTES: OTHER: MINUTES: MODALITIES: *MHP to L shoulder prior to tx MINUTES: 3 [] Contraindication screen completed prior to modality [] Skin intact pre/post SELF CARE/EDUCATION: MINUTES: Patient education was provided for all aspects of care during this clinical encounter. ASSESSMENT: pt tolerated tx well this date. he notes some improvement since his last visit. he was able to engage in all TE w/ decreased discomfort as compared to his previous session. ttp at infraspinatus as well as tightness. pt reported feeling improved overall following tx. PLAN: continue w/ OT POC; modify tx as needed. pt is in agreement w/ this POC. /glenis/ Pam Jefferson, MS OTR/Malini, T Occupational Therapist Signed: 04/16/2024 15:51 PAM JEFFERSON CN[facility]
--- OUTSIDE RECORDS SUMMARY | 2024-11-11 14:59 | XMS_ITS | Encounter Summary ---
Author Name [facility] [place] Address [address] [place] [address] Care Team Providers Care Backup Operator Name Role Phone LETICIA WALDEN Primary [...] PART B Apr 24, 2013 PART B [id number] [phone] [id number] KLEBER DYE RY PATIENT MEDICARE (WNR) MEDICARE () PART B Apr 24, 2013 PART B [id number] KLEBER DYE RY PATIENT MEDICARE (WNR) MEDICARE () PART B Apr 24, 2013 PART B [id number] [phone] [id number] KLEBER DYE RY PATIENT MEDICARE (WNR) MEDICARE () PART A November 23, 2011 PART A [id number] KLEBER DYE RY PATIENT MEDICARE (WNR) MEDICARE () PART A November 23, 2011 PART A [id number] KLEBER DYE RY PATIENT MEDICARE (WNR) MEDICARE (M) PART A November 23, 2011 PART A [id number] KLEBER DYE PATIENT [employer] [place] [employer] PLAN G PLAN G Apr 24, 2013 PLAN G [id number] [phone] [id number] KLEBER DYE PATIENT [employer] [place] [employer] PLAN G Apr 24, 2013 PLANG [id number] KLEBER DYE PATIENT [employer] [place] [employer] PLAN G PLANG Apr 24, 2013 PLANG [id number] KLEBER DYE PATIENT Selected Encounter This section includes the information on record at [place] for the Encounter. Date/Time Encounter Type Encounter Description Reason Provider Source Feb 24, 2024 11:30 AM HEARING AID REPAIR/MODIFYIN G AUDIOLOGY ICD-10-CM Z46.1 Encounter for fitting and adjustment of hearing aid GEE APONTE Greta Encounter Template Text not used by [place] Assessments - Encounter Diagnoses This section includes the primary and secondary diagnoses documented for the Encounter. Date/Time Primary/Secondary Diagnosis Diagnosis Name Provider Source Feb 24, 2024 11:42 AM PRIMARY Encounter for fitting and adjustment of hearing aid [facility] Feb 24, 2024 11:42 AM SECONDARY Sensorineural hearing loss, bilateral RAZIA APONTE [facility] Plan of Treatment: Future Appointments (+ 6 [...] Appointment Type Appointme nt Facility Name Mar 06, 2024 11:00 AM AMBULATORY - [place] [facility] [facility] Mar 06, 2024 01:00 PM [facility] Mar 06, 2024 02:30 PM [facility] Mar 09, 2024 10:30 AM AMBULATORY - [...] [place] [facility] Apr 11, 2024 09:30 AM AMBULATORY - MEDICINE [facility] [place] [facility] Apr 16, 2024 03:00 PM AMBULATORY - REHAB MEDICIN E [place] [facility] [place] [facility] Apr 23, 2024 10:00 AM [...] 13, 2023 11:00 AM VA-TOBACCO FORMER USER [place] [facility] [facility] Tobacco Use History This section includes a history of the smoking, or tobacco-related health factors, that were collected on or before the date of the Encounter. The data comes from the [place] facility where the Encounter took place. Date/Time Smoking Status/Tobac co Use Comment [facility] Apr 13, 2023 11:00 AM VA-TOBACCO [...] he stooped smmoking in the past yr. [facility] Advance Directives: All historical and current [...] 20, 2012 ADVANCE DIRECTIVE DISCUSSION MONIKA IZAGUIRRE [facility] Radiology Reports: +/- 30 days of the [...] CERVICAL, 4 OR 5 VIEWS: SANCHO DYE [id number] -[id number] M Exm Date: MAR 09, 2024@09:52 Req Phys: BRYANNA MOORE Pat Loc: CWM/NO/SICK CALL PA (Req'g Loc Img Loc: [facility] 1 Service: Unknown [facility] [address] (Case [id number] COMPLETE) SPINE CERVICAL, 4 OR 5 VIEWS (RAD Detailed) CPT:15314 Reason for Study: pain with radiating features to the left shoulder Clinical History: Report Status: Verified Date Reported: MAR 09, 2024 Date Verified: MAR 09, 2024 [employer]chette [employer]er E-Sig:/ES/MIRTA NAVAS JR Report: Study: AP, lateral [...] Primary Interpreting Staff: MIRTA NAVAS JR, Radiologist (Fourchette Sewer) /EAD MIRTA NAVAS JR [facility] Encounter Notes: All associated encounter notes This section contains the clinical notes associated to the Encounter. Date/Time Encounter Note(s) Provider Source Feb 24, 2024 07:25 AM AUDIOLOGY E & M NOTE: LOCAL TITLE: AUDIOLOGY CLINIC STANDARD TITLE: AUDIOLOGY E & M NOTE DATE OF NOTE: FEB 24, 2024@07:25 ENTRY DATE: FEB 24, 2024@07:25:33 AUTHOR: GEE APONTE COSIGNER: URGENCY: STATUS: COMPLETED Dx CODE: Z46.1-Encounter for Fitting/Adjusting Hearing Aid(s); H90.3- Sensorineural Hearing Loss, Bilateral APPOINTMENT TYPE: Hearing Aid Programming HISTORY/BACKGROUND: The patient was seen for a hearing aid follow-up appointment, unaccompanied. He was fit with [employer] Evolv AI 312 RICs on 07/13/22. He reports the hearing aids are tinny and only last two days with new batteries. He has been wearing his old [employer] [place] micro RICs (SN: [id number]). HEARING AID PROGRAMMING: Hearing aids were connected to [employer] and high frequency gain was reduced one click. reported satisfaction with sound quality AU. Discussed sending the aids out for repair due to excessive battery drain and agreed. HEARING AID CHECK: The backup hearing aids were cleaned and checked. Wax guards, domes, and microphone covers replaced. Listening inspection revealed devices were working well. Per request a dome and wax guard order was placed. PLAN/RECOMMENDATION(S): 1. Follow up as needed. * Patient Education Education provided on the following topics: Hearing aids Education provided to: P Response to Education: VU Adair Patient P Family F Significant Other SO Verbalizes Understanding VU Returns Demonstration RD Performs Independently PI Lacks Comprehension LC Refused Education RE Not Applicable NA * /glenis/ GEE APONTE STAFF WAITER/WAITRESS BAR Signed: 02/24/2024 11:42 GEE APONTE [facility]
--- OUTSIDE RECORDS SUMMARY | 2024-11-11 14:59 | XMS_ITS | Encounter Summary ---
Author Name [facility] [facility] [place] [facility] [place] Address [address] [place] [address] Care Team Providers Care Staff Development Coordinator Rn Name Role Phone LETICIA WALDEN Primary Care [...] PART B Apr 24, 2013 PART B [id number] [phone] KLEBER DYE RY PATIENT MEDICARE (WNR) MEDICARE () PART B Apr 24, 2013 PART B [id number] [phone] KLEBER DYE RY PATIENT MEDICARE (WNR) MEDICARE () PART B Apr 24, 2013 PART B [id number] KLEBER DYE RY PATIENT MEDICARE (WNR) MEDICARE () PART A November 23, 2011 PART A [id number] KLEBER DYE RY PATIENT MEDICARE (WNR) MEDICARE () PART A November 23, 2011 PART A [id number] [phone] KLEBER DYE RY PATIENT MEDICARE (WNR) MEDICARE () PART A November 23, 2011 PART A [id number] KLEBER DYE PATIENT [employer] PLAN G PLAN G Apr 24, 2013 PLAN G [id number] KLEBER DYE PATIENT [employer] PL[employer] G PLANG Apr 24, 2013 PLANG [id number] KLEBER DYE PATIENT [employer] PL[employer] G Apr 24, 2013 PLANG [id number] KLEBER DYE PATIENT Selected Encounter This section includes the information on record at [place] for the Encounter. Date/Time Encounter Type Encounter Description Reason Provider Source May 16, 2024 10:00 AM THERAPEUTIC EXERCISES OCCUPATIONAL THERAPY ICD-10-CM M25.512 Pain in left shoulder PAM JEFFERSON IHE Encounter Template Text not used by [place] Assessments - Encounter Diagnoses This section includes the primary and secondary diagnoses documented for the Encounter. Date/Time Primary/Secondary Diagnosis Diagnosis Name Provider Source May 30, 2024 10:38 AM PRIMARY Pain in left shoulder BRAULIO JEFFERSONLIE E [place] [facility] [place] [facility] Plan of Treatment: Future Appointments (+ 6 months) and Future Tests (+/- 45 days) The Plan of Treatment section includes future care activities for the patient from all [place] treatmentfacilities. This section includes future appointments and [...] REHAB MEDICIN E [facility] [place] [facility] May 29, 2024 10:30 AM AMBULATORY - REHAB MEDICIN E [facility] [place] [facility] Jun 05, 2024 10:00 AM AMBULATORY - REHAB MEDICIN E [facility] [place] [facility] Jun 07, 2024 03:00 PM AMBULATORY - MEDICINE [facility] [place] [facility] Jun 12, 2024 10:00 AM AMBULATORY - REHAB MEDICIN E [facility] [place] [facility] Jun 14, 2024 10:30 AM AMBULATORY - NONE [facility] [place] [facility] Jun 15, 2024 02:00 PM AMBULATORY - MEDICINE [facility] [place] [facility] Jun 26, 2024 10:30 AM AMBULATORY - REHAB MEDICIN E [facility] [place] [facility] Jun 26, 2024 01:00 PM AMBULATORY - MEDICINE [facility] [place] [facility] Jul 03, 2024 10:30 AM AMBULATORY - REHAB MEDICIN E [facility] [place] [facility] Jul 10, 2024 10:30 AM AMBULATORY - REHAB MEDICIN E [facility] [place] [facility] Jul 12, 2024 10:30 AM AMBULATORY - MEDICINE [facility] [place] [facility] Jul 24, 2024 10:00 AM AMBULATORY - REHAB MEDICIN E [facility] [place] [facility] Aug 09, 2024 10:00 AM AMBULATORY - MEDICINE [facility] [place] [facility] Aug 10, 2024 10:00 AM AMBULATORY - REHAB MEDICIN E [facility] [place] [facility] Aug 14, 2024 11:00 AM AMBULATORY - MEDICINE [facility] [place] [facility] Aug 27, 2024 11:00 AM AMBULATORY - NONE [facility] [place] [facility] Aug 28, 2024 10:30 AM AMBULATORY - REHAB MEDICIN E [facility] [place] [facility] Sep 12, 2024 01:00 PM AMBULATORY - REHAB MEDICIN E [facility] [place] [facility] Oct 04, 2024 03:00 PM AMBULATORY - MEDICINE [facility] [place] [facility] Lab Results: +/- 30 days of [...] 2024 09:58 AM [facility] [place] [facility] BASIC METABOLIC PANEL (fasting) SERUM Specime n Type: SERUM No comment entered. Ordering Provider: LETICIA WALDEN Report Released Date/Time: Apr 14, 2024 05:40 PM Reporting Lab: [address] [address] Performing Lab: [address] [address] UREA NITROGEN 17 mg/dL 7-25 GLUCOSE 103 mg/dL H 65-100 SODIUM 139 mmol/L 135-145 POTASSIUM 4.2 mmol/L 3.5-5.0 CHLORIDE 107 mmol/L 100-110 CO2 25 meq/L 20-30 CREATININE, Serum 1.05 mg/dL 0.50-1.40 eGFR(CKD-EPI 2020) 73 mL/min >60 Apr 19, 2024 09:58 AM [facility] LIVER FUNCTION SERUM Specimen Type: SERUM No comment entered. Ordering Provider: LETICIA WALDEN Report Released Date/Time: Apr 14, 2024 05:40 PM Reporting Lab: [address] [address] Performing Lab: [address] [address] PROTEIN,TOTAL 6.8 g/dL 6.0-8.3 ALBUMIN 3.8 g/dL 3.5-5.0 ALKALINE PHOSPHATASE 69 U/L 40-150 AST 17 U/L 5-34 ALT 27 U/L BILIRUBIN, TOTAL 0.6 mg/dL 0.2-1.2 Apr 19, 2024 09:58 AM [facility] LIPID PANEL FASTING SERUM Specimen Type: SERU M No comment entered. Ordering Provider: LETICIA WALDEN Report Released Date/Time: Apr 14, 2024 05:40 PM Reporting Lab: [address] [address] Performing Lab: [address] [address] CHOLESTEROL 120 mg/dL TRIGLYCERIDE 98 mg/dL 0-150 LDL calculated 63 mg/dL 0-129 CHOL/HDL 3.2 HDL CHOLESTEROL 37 mg/dL L 40-60 Apr 19, 2024 09:58 AM [facility] TSH SERUM Specimen Type: SERUM No comment entered. Ordering Provider: LETICIA WALDEN Report Released Date/Time: Apr 14, 2024 05:40 PM Reporting Lab: [facility] [address] [facility] [facility] [address] Performing Lab: [address] [address] TSH 2.19 u[IU]/mL 0.35-5.00 Apr 19, 2024 09:58 AM [facility] URIC ACID SERUM Specimen Type: SERUM No comment entered. Ordering Provider: LETICIA WALDEN Report Released Date/Time: Apr 14, 2024 05:40 PM Reporting Lab: [address] [address] Performing Lab: [address] [address] URIC ACID 3.1 mg/dL L 3.5-7.2 Apr 19, 2024 09:58 AM [facility] CBC AND DIFF (AUTO) BLOOD Specimen Type: BLOO D No comment entered. Ordering Provider: LETICIA WALDEN Report Released Date/Time: Apr 14, 2024 05:40 PM Reporting Lab: [address] [address] Performing Lab: [address] [address] WBC 6.75 10*3/uL 4.50-11.00 RBC 3.99 10*6/uL [...] 10*3/uL 0.00-0.00 Apr 19, 2024 09:58 AM [facility] URINALYSIS CLEAN CATCH URINE Specimen Type: U RINE Comment: If Glucose = >500 and Ketones are positive, please alert the Physician. Ordering Provider: LETICIA WALDEN Report Released Date/Time: Apr 14, 2024 05:40 PM Reporting Lab: [address] [address] Performing Lab: [address] [address] UA COLOR Light-Yellow Yellow UA APPEARANCE Clear [...] Current Smoking Status Comment Facil [facility] Apr 23, 2024 10:00 AM VA-TOBACCO FORMER USER [place] [facility] [place] [facility] Tobacco Use History This section includes a history of the smoking, or tobacco-related health factors, that were collected on or before the date of the Encounter. The data comes from the [place] facility where the Encounter took place. Date/Time Smoking Status/Tobac co Use Comment Facility Apr 23, 2024 10:00 AM VA-TOBACCO QUIT 5 TO < 15 YRS [facility] [place] [facility] Apr 13, 2023 11:00 AM VA-TOBACCO FORMER USER [facility] [place] [facility] Apr 13, 2023 11:00 AM VA-TOBACCO QUIT 5 TO < 15 YRS [facility] [place] [facility] Apr 14, 2022 01:30 PM VA-TOBACCO FORMER USER [facility] [place] [facility] Apr 14, 2022 01:30 PM VA-TOBACCO QUIT 5 TO < 15 YRS [facility] [place] [facility] Apr 10, 2021 10:00 AM VA-TOBACCO FORMER USER [facility] [place] [facility] Apr 10, 2021 10:00 AM VA-TOBACCO QUIT 5 TO < 15 YRS [facility] [place] [facility] Apr 02, 2020 10:30 AM VA-TOBACCO FORMER USER [facility] [place] [facility] Apr 02, 2020 10:30 AM VA-TOBACCO QUIT 5 TO < 15 YRS [facility] [place] [facility] Sep 29, 2018 08:52 AM VA-TOBACCO FORMER USER [facility] [place] [facility] Sep 29, 2018 08:52 AM VA-TOBACCO QUIT 15 YRS OR MORE [facility] [place] [facility] December 21, 2017 12:27 PM QUIT TOBACCO USE 1-7 YEARS AGO 5 or 6 years ago [facility] [place] [facility] May 19, 2017 10:21 AM QUIT TOBACCO USE 1-7 YEARS AGO [facility] [place] [facility] Aug 19, 2016 09:56 AM QUIT TOBACCO USE 1-7 YEARS AGO [facility] [place] [facility] Feb 12, 2016 11:34 AM QUIT TOBACCO USE 1-7 YEARS AGO [facility] [place] [facility] Aug 08, 2015 03:04 PM QUIT TOBACCO USE 1-7 YEARS AGO [facility] Aug 08, 2015 03:04 PM QUIT TOBACCO USE IN PAST YEAR pt states he stooped smmoking in the past yr. [facility] Advance Directives: All historical and current Section Date Range: From patient's date of to the date document was created. This section includes ALL of a patient's completed or amended [place] Advance and Rescinded Directives. The entries below indicate that a directive exists for the patient, but an actual copy is not included with this document. The data comes from all [place] facilities. Date Advance Directives Provider Source Jun 20, 2012 ADVANCE DIRECTIVE DISCUSSION [place]IKA IZAGUIRRE [facility] [place] Reports: +/- 30 [...] the Encounter. The data comes from all [place] treatment facilities. Date/Time Radiology Report Provider Source Jun 14, 2024 10:20 AM LDCT LUNG CANCER SCREENING: SANCHO DYE [id number] -[id number] M Exm Date: JUN 14, 2024@10:20 Req Phys: LETICIA WALDEN Loc: [facility]/NO/LCS ADMIN (Req'g Loc) Img Loc: [facility]/CT Service: [place] [address] (Case [id number] COMPLETE) LDCT LUNG CANCER SCREENING (CT Detailed) CPT:09825 Reason for Study: LUNG CANCER SCREENING Clinical History: 53 TPY-Quit 2012 Prior chest imaging: CT scan the chest from May 25, 2022, May 07, 2021, April 29, 2020, April 18, 2019 and December 12, 2017. [facility] LDCT on 06/15/2023: LR 1 Report Status: Verified Date Reported: JUN 14, 2024 Date Verified: JUN 14, 2024 Boiler Tube Reamer E-Sig:/ES/MIRTA Oropeza NAVAS JR Report: Study: Lung cancer screening [...] reviewed. Secondary computer-aided detection with post-processing from [employer] is used. The lack of intravenous contrast [...] Primary Interpreting Staff: MIRTA NAVAS JR, Radiologist (Boiler Tube Reamer) /MIRTA CASIANO JR [place] [facility] [place] [facility] Encounter Notes: All associated encounter notes This section contains the clinical notes associated to the Encounter. Date/Time Encounter Note(s) Provider Source May 16, 2024 09:56 AM OCCUPATIONAL THERAPY NOTE: LOCAL TITLE: OCCUPATIONAL THERAPY STANDARD TITLE: OCCUPATIONAL THERAPY NOTE DATE OF NOTE: MAY 16, 2024@09:56 ENTRY DATE: MAY 16, 2024@09:56:04 AUTHOR: PAM JEFFERSON COSIGNER: URGENCY: STATUS: COMPLETED Initial Evaluation date: Mar Progress Note Date: Treatment #: 5 Treatment time: 30 minutes Diagnosis: Pain in left Shoulder(ICD-10-CM M25.512) Provider: Irma DIAZ Treatment Precautions: Patient identified by full name and date of SUBJECTIVE: Pt reports that his shoulder is getting better. It wasn't as good yesterday as it is today. Pain level: 2/10 at rest OBJECTIVE: THERAPEUTIC EXERCISE: *UBE 2' forward, 2' backward 1.0 *pulleys into flexion w/ 10 second hold, 1x10 *wall slides into flexion, 1x10 *pec stretch in doorway, 30 seconds x3 *shoulder rows w/ blue band, 1x10 *shoulder extensions w/ blue band, 1x10 *supine chest press, 1x10 *supine shoulder flexion, 1x10 Access Code: [email or web address] URL: [email or web address] Date: 05/01/2024 Prepared by: [facility] Exercises - Seated Shoulder Flexion AAROM [...] and medial border of the scap musculature, seated MINUTES: 9 THERAPEUTIC DYNAMIC ACTIVITIES: MINUTES: NEUROMUSCULAR EDUCATION: MINUTES: OTHER: MINUTES: MODALITIES: *MHP to L shoulder prior to tx MINUTES: 3 [] Contraindication screen completed prior to modality [] Skin intact pre/post SELF CARE/EDUCATION: MINUTES: Patient education was provided for all aspects of care during this clinical encounter. ASSESSMENT: pt tolerated tx well this date. he continues to make gains each week w/ pain levels dropping at rest. improved tolerance of TE as well. pt reported feeling less tightness in the posterior shoulder following tx. PLAN: continue w/ OT POC; modify tx as needed. pt is in agreement w/ this POC. /glenis/ Pam Jefferson, MS OTR/Malini, CHT Occupational Therapist Signed: 05/17/2024 07:09 PAM JEFFERSON [facility]
--- OUTSIDE RECORDS SUMMARY | 2024-11-11 14:59 | XMS_ITS | Encounter Summary ---
Author Name [facility] [place] Organization [facility] [place] Address [address] [place] [address] Care Team Providers Care Policy Checker Name Role Phone LETICIA WALDEN Primary Care [...] PART B Apr 24, 2013 PART B [id number] KLEBER DYE RY PATIENT MEDICARE (WNR) MEDICARE () PART B Apr 24, 2013 PART B [id number] [id number] [phone] [id number] KLEBER DYE RY PATIENT MEDICARE (WNR) MEDICARE () PART B Apr 24, 2013 PART B [id number] KLEBER DYE RY PATIENT MEDICARE (WNR) MEDICARE () PART A November 23, 2011 PART A [id number] [id number] KLEBER DYE RY PATIENT MEDICARE (WNR) MEDICARE () PART A November 23, 2011 PART A [id number] [id number] KLEBER DYE RY PATIENT MEDICARE (WNR) MEDICARE () PART A November 23, 2011 PART A [id number] KLEBER DYE PATIENT [employer] [place] PLAN G PLAN G Apr 24, 2013 PLAN G [phone] [id number] KLEBER YDE PATIENT [employer] [place] PLAN G Apr 24, 2013 PLANG [id number] KLEBER DYE PATIENT [employer] [place] PLAN G PLANG Apr 24, 2013 PLANG [id number] KLEBER DYE PATIENT Selected Encounter This section includes the information on record at ID for the Encounter. Date/Time Encounter Type Encounter Description Reason Provider Source May 01, 2024 10:00 AM THERAPEUTIC EXERCISES OCCUPATIONAL THERAPY ICD-10-CM M25.512 Pain in left shoulder PAM JEFFERSON IHE Encounter Template Text not used by ID Assessments - Encounter Diagnoses This section includes the primary and secondary diagnoses documented for the Encounter. Date/Time Primary/Secondary Diagnosis Diagnosis Name Provider Source May 17, 2024 02:28 PM PRIMARY Pain in left shoulder TAO JEFFERSONE E [facility] [place] [facility] Plan of Treatment: Future Appointments [...] Appointment Type Appointme nt Facility Name May 16, 2024 10:00 AM AMBULATORY - REHAB MEDICIN E [facility] [place] [facility] May 16, 2024 11:00 AM AMBULATORY - REHAB MEDICIN E [facility] [place] [facility] May 21, 2024 03:00 PM AMBULATORY - REHAB MEDICIN E [facility] [place] [facility] May 29, 2024 10:30 AM AMBULATORY - REHAB MEDICIN E [facility] [place] [facility] Jun 05, 2024 10:00 AM AMBULATORY - REHAB MEDICIN E [facility] [place] [facility] Jun 07, 2024 03:00 PM AMBULATORY - MEDICINE [facility] [place] [facility] Jun 12, 2024 10:00 AM AMBULATORY - REHAB MEDICIN E [facility] [place] [facility] Jun 14, 2024 10:30 AM AMBULATORY - NONE [facility] [place] [facility] Jun 15, 2024 02:00 PM AMBULATORY - MEDICINE [facility] [place] [facility] Jun 26, 2024 10:30 AM AMBULATORY - REHAB MEDICIN E [facility] [place] [facility] Jun 26, 2024 01:00 PM AMBULATORY - MEDICINE [facility] [place] [facility] Jul 03, 2024 10:30 AM AMBULATORY - REHAB MEDICIN E [facility] [place] [facility] Jul 10, 2024 10:30 AM AMBULATORY - REHAB MEDICIN E [facility] [place] [facility] Jul 12, 2024 10:30 AM AMBULATORY - MEDICINE [facility] [place] [facility] Jul 24, 2024 10:00 AM AMBULATORY - REHAB MEDICIN E [facility] [place] [facility] Aug 09, 2024 10:00 AM AMBULATORY - MEDICINE [facility] [place] [facility] Aug 10, 2024 10:00 AM AMBULATORY - REHAB MEDICIN E [facility] [place] [facility] Aug 14, 2024 11:00 AM AMBULATORY - MEDICINE [facility] [place] [facility] Aug 27, 2024 11:00 AM AMBULATORY - NONE [facility] [place] [facility] Aug 28, 2024 10:30 AM AMBULATORY - REHAB MEDICIN E [facility] [place] [facility] Lab Results: +/- 30 days of the encounter This section includes the Chemistry and Hematology Lab Results on record with ID for the patient. Radiology Reports and Pathology Reports are provided separately, in subsequent sections. Lab Results This section contains the Chemistry/Hematology Results that were resulted 30 days before or 30 daysafter the date of the Encounter. Date/Time Source Result Type Result - Unit Interpretation Reference Range Specimen Type Comment Apr 19, 2024 09:58 AM [facility] [place] [facility] BASIC METABOLIC PANEL (fasting) SERUM Specime n Type: SERUM No comment entered. Ordering Provider: LETICIA WALDEN Report Released Date/Time: Apr 14, 2024 05:40 PM Reporting Lab: [address] [address] Performing Lab: [address] [address] UREA NITROGEN 17 mg/dL 7-25 GLUCOSE 103 mg/dL H 65-100 SODIUM 139 mmol/L 135-145 POTASSIUM 4.2 mmol/L 3.5-5.0 CHLORIDE 107 mmol/L 100-110 CO2 25 meq/L 20-30 CREATININE, Serum 1.05 mg/dL 0.50-1.40 eGFR(CKD-EPI 2020) 73 mL/min >60 Apr 19, 2024 09:58 AM [facility] LIVER FUNCTION SERUM Specimen Type: SERUM No comment entered. Ordering Provider: LETICIA WALDEN Report Released Date/Time: Apr 14, 2024 05:40 PM Reporting Lab: [address] [address] Performing Lab: [address] [address] PROTEIN,TOTAL 6.8 g/dL 6.0-8.3 ALBUMIN 3.8 g/dL 3.5-5.0 ALKALINE PHOSPHATASE 69 U/L 40-150 AST 17 U/L 5-34 ALT 27 U/L BILIRUBIN, TOTAL 0.6 mg/dL 0.2-1.2 Apr 19, 2024 09:58 AM [facility] LIPID PANEL FASTING SERUM Specimen Type: SERU M No comment entered. Ordering Provider: LETICIA WALDEN Report Released Date/Time: Apr 14, 2024 05:40 PM Reporting Lab: [address] [address] Performing Lab: [address] [address] CHOLESTEROL 120 mg/dL TRIGLYCERIDE 98 mg/dL 0-150 LDL calculated 63 mg/dL 0-129 CHOL/HDL 3.2 HDL CHOLESTEROL 37 mg/dL L 40-60 Apr 19, 2024 09:58 AM [facility] TSH SERUM Specimen Type: SERUM No comment entered. Ordering Provider: LETICIA WALDEN Report Released Date/Time: Apr 14, 2024 05:40 PM Reporting Lab: [facility] [address] [facility] [address] Performing Lab: [address] [address] TSH 2.19 u[IU]/mL 0.35-5.00 Apr 19, 2024 09:58 AM [facility] URIC ACID SERUM Specimen Type: SERUM No comment entered. Ordering Provider: LETICIA WALDEN Report Released Date/Time: Apr 14, 2024 05:40 PM Reporting Lab: [facility] [address] [facility] [address] Performing Lab: [address] [address] URIC ACID 3.1 mg/dL L 3.5-7.2 Apr 19, 2024 09:58 AM [facility] CBC AND DIFF (AUTO) BLOOD Specimen Type: BLOO D No comment entered. Ordering Provider: LETICIA WALDEN Report Released Date/Time: Apr 14, 2024 05:40 PM Reporting Lab: [facility] [address] [facility] [address] Performing Lab: [address] [address] WBC 6.75 10*3/uL 4.50-11.00 RBC 3.99 10*6/uL [...] 10*3/uL 0.00-0.00 Apr 19, 2024 09:58 AM [facility] URINALYSIS CLEAN CATCH URINE Specimen Type: U RINE Comment: If Glucose = >500 and Ketones are positive, please alert the Physician. Ordering Provider: LETICIA WALDEN Report Released Date/Time: Apr 14, 2024 05:40 PM Reporting Lab: [address] [address] Performing Lab: [address] [address] UA COLOR Light-Yellow Yellow UA APPEARANCE Clear [...] 23, 2024 10:00 AM VA-TOBACCO FORMER USER ID [facility] [place] [facility] Tobacco Use History This section includes a history of the smoking, or tobacco-related health factors, that were collected on or before the date of the Encounter. The data comes from the [place] facility where the Encounter took place. Date/Time Smoking Status/Tobac co Use Comment [facility] Apr 23, 2024 10:00 AM VA-TOBACCO QUIT 5 TO < 15 YRS [facility] [place] [facility] Apr 13, 2023 11:00 AM VA-TOBACCO FORMER USER [facility] [place] [facility] Apr 13, 2023 11:00 AM VA-TOBACCO QUIT 5 TO < 15 YRS [facility] [place] [facility] Apr 14, 2022 01:30 PM VA-TOBACCO FORMER USER [facility] [place] [facility] Apr 14, 2022 01:30 PM VA-TOBACCO QUIT 5 TO < 15 YRS [facility] [place] [facility] Apr 10, 2021 10:00 AM VA-TOBACCO FORMER USER [facility] [place] [facility] Apr 10, 2021 10:00 AM VA-TOBACCO QUIT 5 TO < 15 YRS [facility] [place] [facility] Apr 02, 2020 10:30 AM VA-TOBACCO FORMER USER [facility] [place] [facility] Apr 02, 2020 10:30 AM VA-TOBACCO QUIT 5 TO < 15 YRS [facility] [place] [facility] Sep 29, 2018 08:52 AM VA-TOBACCO FORMER USER [facility] [place] [facility] Sep 29, 2018 08:52 AM VA-TOBACCO QUIT 15 YRS OR MORE [facility] [place] [facility] December 21, 2017 12:27 PM QUIT TOBACCO USE 1-7 YEARS AGO 5 or 6 years ago [facility] [place] [facility] May 19, 2017 10:21 AM QUIT TOBACCO USE 1-7 YEARS AGO [facility] [place] [facility] Aug 19, 2016 09:56 AM QUIT TOBACCO USE 1-7 YEARS AGO [facility] [place] [facility] Feb 12, 2016 11:34 AM QUIT TOBACCO USE 1-7 YEARS AGO [facility] [place] [facility] Aug 08, 2015 03:04 PM QUIT TOBACCO USE 1-7 YEARS AGO [facility] Aug 08, 2015 03:04 PM QUIT TOBACCO USE IN PAST YEAR pt states he stooped smmoking in the past yr. [facility] Advance Directives: All historical and [...] 20, 2012 ADVANCE DIRECTIVE DISCUSSION MONIKA IZAGUIRRE [facility] Encounter Notes: All associated encounter notes This section contains the clinical notes associated to the Encounter. Date/Time Encounter Note(s) Provider Source May 01, 2024 09:43 AM OCCUPATIONAL THERAPY NOTE: LOCAL TITLE: OCCUPATIONAL THERAPY STANDARD TITLE: OCCUPATIONAL THERAPY NOTE DATE OF NOTE: MAY 01, 2024@09:43 ENTRY DATE: MAY 01, 2024@09:43:55 AUTHOR: PAM JEFFERSON COSIGNER: URGENCY: STATUS: COMPLETED Initial Evaluation date: Mar Progress Note Date: Treatment #: 4 Treatment time: 30 minutes Diagnosis: Pain in left Shoulder(ICD-10-CM M25.512) Provider: Irma DIAZ Treatment Precautions: Patient identified by full name and date of SUBJECTIVE: Pt reports that his shoulder is the same as the last time. That's not bad though, at least it hasn't gotten worse. He hasn't been taking Tylenol as often. Pain level: 3-4/10 OBJECTIVE: THERAPEUTIC EXERCISE: *UBE 2' forward, 2' backward 1.0 *pulleys into flexion w/ 10 second hold, 1x10 *wall slides into flexion, 1x10 *pec stretch in doorway, 30 seconds x3 *shoulder rows w/ blue band, 2x10 ADDED: *shoulder extensions w/ blue band, 2x10 *supine chest press, 1x10 *supine shoulder flexion, 1x10 Access Code: [email or web address] URL: [email or web address] Date: 05/01/2024 Prepared by: PAR[facility] Exercises - Seated Shoulder Flexion AAROM [...] ASSESSMENT: pt tolerated tx well this date. pain level remains around a 3-4/10. he is still unable to lie flat for any amount of time (sleeping in a recliner). he tolerated all TE very well. adhesions w/ ttp palpable throughout infra, medial border of the scap and upper trap. PLAN: continue w/ OT POC; modify tx as needed. pt is in agreement w/ this POC. /glenis/ Pam Jefferson, MS OTR/L, CHT Occupational Therapist Signed: 05/01/2024 16:04 PAM JEFFERSON [facility]
--- OUTSIDE RECORDS SUMMARY | 2024-11-11 14:59 | XMS_ITS | Encounter Summary ---
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 Dairy Husbandry Worker Name Role Phone LETICIA WALDEN Primary Care [...] PART B Apr 24, 2013 PART B [id number] [phone] KLEBER DYE RY PATIENT MEDICARE (WNR) MEDICARE () PART B Apr 24, 2013 PART B [id number] KLEBER DYE RY PATIENT MEDICARE (WNR) MEDICARE () PART B Apr 24, 2013 PART B [id number] [id number] KLEBER DYE RY PATIENT MEDICARE (WNR) MEDICARE () PART A November 23, 2011 PART A [id number] KLEBER DYE RY PATIENT MEDICARE (WNR) MEDICARE () PART A November 23, 2011 PART A [id number] KLEBER DYE RY PATIENT MEDICARE (WNR) MEDICARE () PART A November 23, 2011 PART A [id number] KLEBER DYE PATIENT [employer] [place] [employer] PLAN G PLAN G Apr 24, 2013 PLAN G [id number] KLEBER DYE PATIENT [employer] [employer] PLAN G PLANG Apr 24, 2013 PLANG [id number] KLEBER DYE PATIENT [employer] PLAN G Apr 24, 2013 PLANG [id number] KLEBER DYE PATIENT Selected Encounter This section includes the information on record at [place] for the Encounter. Date/Time Encounter Type Encounter Description Reason Provider Source November 24, 2023 10:30 AM THERAPEUTIC EXERCISES OCCUPATIONAL THERAPY ICD-10-CM M25.512 Pain in left shoulder PAM JEFFERSON IHE Encounter Template Text not used by [place] Assessments - Encounter Diagnoses This section includes the primary and secondary diagnoses documented for the Encounter. Date/Time Primary/Secondary Diagnosis Diagnosis Name Provider Source Dec 25, 2023 03:22 PM PRIMARY Pain in left shoulder BRAULIO JEFFERSONLIE E [place] [facility] [place] [facility] Plan of Treatment: Future Appointments (+ 6 months) and Future Tests (+/- 45 days) The Plan of Treatment section includes future care activities for the patient from all [place] treatmentfacilities. This section includes future appointments and future orders which are active, pending or scheduled. Future Appointments This section includes appointments that were scheduled to occur 6 months from the date of the Encounter, up to a maximum of 20 appointments. The data comes from all [place] treatment facilities. Appointment Date/Time Appointment Type Appointme nt Facility Name 2023 01:00 PM AMBULATORY - MEDICINE [place] [facility] [place] [facility] December 08, 2023 02:30 PM AMBULATORY - MEDICINE [place] [facility] [place] [facility] Jan 12, 2024 11:30 AM AMBULATORY - MEDICINE [place] [facility] [facility] Jan 30, 2024 11:00 AM AMBULATORY - MEDICINE [place] [facility] [place] [facility] Feb 06, 2024 02:30 PM AMBULATORY - MEDICINE [place] [facility] [facility] Feb 23, 2024 09:30 AM AMBULATORY - MEDICINE [place] [facility] [facility] Feb 24, 2024 09:00 AM AMBULATORY - MEDICINE [facility] [place] [facility] Feb 24, 2024 11:30 AM AMBULATORY - REHAB MEDICIN E [facility] [place] [facility] Mar 06, 2024 11:00 AM AMBULATORY - REHAB MEDICIN E [facility] [place] [facility] Mar 06, 2024 01:00 PM AMBULATORY - MEDICINE [facility] [place] [facility] Mar 06, 2024 02:30 PM AMBULATORY - MEDICINE [facility] [place] [facility] Mar 09, 2024 10:30 AM AMBULATORY - MEDICINE [facility] [place] [facility] Mar 09, 2024 01:00 PM AMBULATORY - MEDICINE [facility] [place] [facility] Mar 13, 2024 10:30 AM AMBULATORY - REHAB MEDICIN E [facility] [place] [facility] Mar 14, 2024 02:30 PM AMBULATORY - REHAB MEDICIN E [facility] [place] [facility] Mar 16, 2024 10:30 AM AMBULATORY - MEDICINE [facility] [place] [facility] Mar 20, 2024 09:30 AM AMBULATORY - MEDICINE [facility] [place] [facility] Mar 23, 2024 10:30 AM AMBULATORY - MEDICINE [facility] [place] [facility] Mar 29, 2024 11:30 AM AMBULATORY - MEDICINE [facility] [place] [facility] Mar 30, 2024 09:00 AM AMBULATORY - MEDICINE [facility] [place] [facility] Social History: Smoking Status (Most [...] [email or web address] Apr 13, 2023 11:00 AM VA-TOBACCO QUIT 5 TO < 15 YRS [facility] Tobacco Use History This section includes a history of the smoking, or tobacco-related health factors, that were collected on or before the date of the Encounter. The data comes from the [place] facility where the Encounter took place. Date/Time Smoking Status/Tobac co Use Comment Facility Apr 13, 2023 11:00 AM VA-TOBACCO QUIT 5 TO < 15 YRS [facility] [place] [facility] Apr 14, 2022 01:30 PM VA-TOBACCO FORMER USER [facility] [place] [facility] Apr 14, 2022 01:30 PM VA-TOBACCO QUIT 5 TO < 15 YRS [facility] [place] [facility] Apr 10, 2021 10:00 AM VA-TOBACCO FORMER USER [facility] [place] [facility] Apr 10, 2021 10:00 AM VA-TOBACCO QUIT 5 TO < 15 YRS [facility] [place] [facility] Apr 02, 2020 10:30 AM VA-TOBACCO FORMER USER [facility] [place] [facility] Apr 02, 2020 10:30 AM VA-TOBACCO QUIT 5 TO < 15 YRS [facility] [place] [facility] Sep 29, 2018 08:52 AM VA-TOBACCO FORMER USER [facility] [place] [facility] Sep 29, 2018 08:52 AM VA-TOBACCO QUIT 15 YRS OR MORE [facility] [place] [facility] December 21, 2017 12:27 PM QUIT TOBACCO USE 1-7 YEARS AGO 5 or 6 years ago [facility] [place] [facility] May 19, 2017 10:21 AM QUIT TOBACCO USE 1-7 YEARS AGO [facility] [place] [facility] Aug 19, 2016 09:56 AM QUIT TOBACCO USE 1-7 YEARS AGO [facility] [place] [facility] Feb 12, 2016 11:34 AM QUIT TOBACCO USE 1-7 YEARS AGO [facility] [place] [facility] Aug 08, 2015 03:04 PM QUIT TOBACCO USE 1-7 YEARS AGO [facility] [place] [facility] Aug 08, 2015 03:04 PM QUIT TOBACCO USE IN PAST YEAR pt states he stooped smmoking in the past yr. [place] [facility] [place] [facility] Advance Directives: All historical and [...] 20, 2012 ADVANCE DIRECTIVE DISCUSSION MONIKA IZAGUIRRE [facility] Encounter Notes: All associated encounter notes This section contains the clinical notes associated to the Encounter. Date/Time Encounter Note(s) Provider Source November 24, 2023 10:43 AM OCCUPATIONAL THERA PY NOTE: LOCAL TITLE: OCCUPATIONAL THERAPY STANDARD TITLE: OCCUPATIONAL THERAPY NOTE DATE OF NOTE: NOVEMBER 24, 2023@10:43 ENTRY DATE: NOVEMBER 24, 2023@10:43:46 AUTHOR: PAM JEFFERSON COSIGNER: URGENCY: STATUS: COMPLETED Initial Evaluation date: Sep Progress Note Date: Treatment #: 5 Treatment time: 20 minutes Diagnosis: Pain in left Shoulder(ICD-10-CM M25.512) Provider: Irma DIAZ Treatment Precautions: Patient identified by full name and date of SUBJECTIVE: Pt reports shoulder has been doing pretty good lately. No problems with his shoulder at all. Pain Level: 0/10 OBJECTIVE: MMT: Shoulder: [R] [L] 11/24/2023 [L] Flexion: 5/5 4+/5 4+/5 Abduction: 5/5 4+/5 5/5 IR: 5/5 5/5 5/5 ER: 5/5 4-/5 4+/5 THERAPEUTIC EXERCISE: *UBE 2' forward, 2' backward 1.0 *wall slides into flexion, 1x10 *shoulder high rows w/ blue band, 1x10 *shoulder IR reactive iso's w/ green band, 2x10 *shoulder ER reactive iso's w/ green band, 2x10 Access Code: [email or web address] URL: [email or web address] Date: 11/10/2023 Prepared by: [facility] Exercises - Split Stance Shoulder Row with Resistance - 1 x daily - 7 x weekly - 3 sets - 10 reps - Shoulder Extension with Resistance - 1 x daily - 7 x weekly - 3 sets - 10 reps - Shoulder Flexion Wall Slide with Towel - 1 x daily - 7 x weekly - 3 sets - 10 reps - Doorway Pec Stretch at 60 Elevation - 1 x daily - 7 x weekly - 3 sets - 3 reps - 30 hold - Standing Row with Resistance with Anchored Resistance at Chest Height Palms Down - 1 x daily - 7 x weekly - 3 sets - 10 reps - Shoulder Internal Rotation Reactive Isometrics - 1 x daily - 7 x weekly - 3 sets - 10 reps - Shoulder External Rotation Reactive Isometrics - 1 x daily - 7 x weekly - 3 sets - 10 reps MINUTES: 13 MANUAL THERAPY:MINUTES: MODALITIES:MINUTES: Patient education was provided for all aspects of care during this clinical encounter. ASSESSMENT: Pt tolerated tx well. Pt reports that he is pleased with his progress. strength has improved by 1/2 grade throughout. Pt notes 100% improvement since initiating tx. No pain associated with exercises and able to perform well. PLAN: will leave chart open x30 days. pt will call w/ an update before then. he understands he will be discharged if he does not reach out prior to 30 days. Pt is in agreement w/ this POC. This treatment was primarily performed by MICHELE Nunn, however, IPam MS OTR/KENIA Nayak, was present during the course of this treatment in its entirety providing direct supervision for this student, I agree with treatment and plan of care as stated above. /glenis/ Pam Jefferson MS OTR/KENIA Nayak Occupational Therapist Signed: 11/24/2023 14:48 Receipt Acknowledged By: 11/24/2023 14:50 /glenis/ GANESH HILLS OCCUPATIONAL THERAPY STUDENT PAM JEFFERSON [facility]
--- OUTSIDE RECORDS SUMMARY | 2024-11-11 14:59 | XMS_ITS | Encounter Summary ---
Author Name [facility] [place] Organization [facility] [place] [facility] [place] Address [address] [place] [address] Care Team Providers Care Regional Sales Consultant Name Role Phone LETICIA WALDEN Primary Care [...] PART B Apr 24, 2013 PART B [id number] KLEBER DYE RY PATIENT MEDICARE (WNR) MEDICARE () PART B Apr 24, 2013 PART B [id number] [facility]8 KLEBER DYE RY PATIENT MEDICARE (WNR) MEDICARE () PART B Apr 24, 2013 PART B [id number] [id number] KLEBER DYE RY PATIENT MEDICARE (WNR) MEDICARE () PART A November 23, 2011 PART A [id number] KLEBER DYE RY PATIENT MEDICARE (WNR) MEDICARE () PART A November 23, 2011 PART A [id number] [id number] [id number] KLEBER DYE RY PATIENT MEDICARE (WNR) MEDICARE () PART A November 23, 2011 PART A [id number] KLEBER DYE PATIENT [employer] [place] [employer] PLAN G PLAN G Apr 24, 2013 PLAN G [id number] KLEBER DYE PATIENT [employer] [place] PLAN G Apr 24, 2013 PLANG [id number] KLEBER DYE PATIENT [employer] [place] [employer] PL[employer] G PLANG Apr 24, 2013 PLANG [id number] KLEBER DYE PATIENT Selected Encounter This section includes the information on record at [place] for the Encounter. Date/Time Encounter Type Encounter Description Reason Provider Source Jun 12, 2024 10:00 AM THERAPEUTIC EXERCISES OCCUPATIONAL THERAPY ICD-10-CM M25.512 Pain in left shoulder TOA JEFFERSONE Greta IHE Encounter Template Text not used by [place] Assessments - Encounter Diagnoses This section includes the primary and secondary diagnoses documented for the Encounter. Date/Time Primary/Secondary Diagnosis Diagnosis Name Provider Source Jun 30, 2024 06:10 AM PRIMARY Pain in left shoulder RONNYPAM E [facility] [place] [facility] Plan of Treatment: Future Appointments [...] AMBULATORY - NONE [facility] [place] [facility] Jun 15, 2024 02:00 PM AMBULATORY - MEDICINE PR C [facility] [place] [facility] Jun 26, 2024 10:30 AM AMBULATORY - REHAB MEDICIN E [facility] [place] [facility] Jun 26, 2024 01:00 PM AMBULATORY - MEDICINE PR C [facility] [place] [facility] Jul 03, 2024 10:30 AM AMBULATORY - REHAB MEDICIN E [facility] [place] [facility] Jul 10, 2024 10:30 AM AMBULATORY - REHAB MEDICIN E [facility] [place] [facility] Jul 12, 2024 10:30 AM AMBULATORY - MEDICINE VA C [facility] [place] [facility] Jul 24, 2024 10:00 AM AMBULATORY - REHAB MEDICIN E [facility] [place] [facility] Aug 09, 2024 10:00 AM AMBULATORY - MEDICINE VA C [facility] [place] [facility] Aug 10, 2024 10:00 AM AMBULATORY - REHAB MEDICIN E [facility] [place] [facility] Aug 14, 2024 11:00 AM AMBULATORY - MEDICINE VA C [facility] [place] [facility] Aug 27, 2024 11:00 AM AMBULATORY - NONE [facility] [place] [facility] Aug 28, 2024 10:30 AM AMBULATORY - REHAB MEDICIN E [facility] [place] [facility] Sep 12, 2024 01:00 PM AMBULATORY - REHAB MEDICIN E [facility] [place] [facility] Oct 04, 2024 03:00 PM AMBULATORY - MEDICINE VA C [facility] [place] [facility] Oct 16, 2024 10:00 AM AMBULATORY - MEDICINE [facility] [place] [facility] Social History: Smoking Status (Most [...] took place. Date/Time Current Smoking Status Comment [facility] Apr 23, 2024 10:00 AM VA-TOBACCO FORMER USER [facility] [place] [facility] Tobacco Use History This [...] < 15 YRS [facility] [place] [facility] Apr 13, 2023 11:00 AM VA-TOBACCO FORMER USER [facility] [place] [facility] Apr 13, 2023 11:00 AM VA-TOBACCO QUIT 5 TO < 15 YRS [facility] [place] [facility] Apr 14, 2022 01:30 PM VA-TOBACCO FORMER USER [facility] [place] [facility] Apr 14, 2022 01:30 PM VA-TOBACCO QUIT 5 TO < 15 YRS [facility] [place] [facility] Apr 10, 2021 10:00 AM VA-TOBACCO FORMER USER [facility] [place] [facility] Apr 10, 2021 10:00 AM VA-TOBACCO QUIT 5 TO < 15 YRS [facility] [place] [facility] Apr 02, 2020 10:30 AM VA-TOBACCO FORMER USER [facility] [place] [facility] Apr 02, 2020 10:30 AM VA-TOBACCO QUIT 5 TO < 15 YRS [facility] [place] [facility] Sep 29, 2018 08:52 AM VA-TOBACCO FORMER USER PR [facility] [place] [facility] Sep 29, 2018 08:52 AM VA-TOBACCO QUIT 15 YRS OR MORE [facility] [place] [facility] December 21, 2017 12:27 PM QUIT TOBACCO USE 1-7 YEARS AGO 5 or 6 years ago [facility] [place] [facility] May 19, 2017 10:21 AM QUIT TOBACCO USE 1-7 YEARS AGO [facility] [place] [facility] Aug 19, 2016 09:56 AM QUIT TOBACCO USE 1-7 YEARS AGO [facility] [place] [facility] Feb 12, 2016 11:34 AM QUIT TOBACCO USE 1-7 YEARS AGO [facility] [place] [facility] Aug 08, 2015 03:04 PM QUIT TOBACCO USE 1-7 YEARS AGO [facility] [place] [facility] Aug 08, 2015 03:04 PM QUIT TOBACCO USE IN PAST YEAR pt states he stooped smmoking in the past yr. [facility] [place] [facility] Advance Directives: All historical [...] LDCT LUNG CANCER SCREENING: SANCHO DYE EDILBERTO [id number] -1945 M Exm Date: JUN 14, 2024@10:20 Req Phys: LETICIA WALDEN Loc: ZZCWM/NO/LCS ADMIN (Req'g Loc) Img Loc: [facility]/CT Service: [place] [address] (Case [id number] COMPLETE) LDCT LUNG CANCER SCREENING (CT Detailed) CPT:70940 Reason for Study: LUNG CANCER SCREENING Clinical History: 53 TPY-Quit 2012 Prior chest imaging: CT scan the chest from May 25, 2022, May 07, 2021, April 29, 2020, April 18, 2019 and December 12, 2017. LCS LDCT on 06/15/2023: LR 1 Report Status: Verified Date Reported: JUN 14, 2024 Date Verified: JUN 14, 2024 Access Database Developer E-Sig:/ES/MIRTA NAVAS JR Report: Study: Lung cancer [...] reviewed. Secondary computer-aided detection with post-processing from [employer] is used. The lack of intravenous contrast [...] Primary Interpreting Staff: MIRTA NAVAS JR, Radiologist (Access Database Developer) /MIRTA CASIANO JR [facility] [place] [facility] Encounter Notes: All associated encounter [...] in doorway, 30 seconds x3 Access Code: [email or web address] URL: [email or web address] Date: 05/01/2024 Prepared by: PARUL [facility] Exercises - Seated Shoulder Flexion [...] Signed: 06/12/2024 10:37 PAM JEFFERSON [facility] [place]
--- OUTSIDE RECORDS SUMMARY | 2024-11-11 14:59 | XMS_ITS ---
Author Name [facility] [facility] [place] Organization [facility] [place] Address [address] [place] [address] Care Team Providers Care Mobile Mechanic Name Role Phone LETICIA WALDEN Primary Care [...] PART B Apr 24, 2013 PART B [id number] KLEBER DYE RY PATIENT MEDICARE (WNR) MEDICARE () PART B Apr 24, 2013 PART B [id number] [id number] KLEBER DYE RY PATIENT MEDICARE (WNR) MEDICARE () PART B Apr 24, 2013 PART B [id number] KLEBER DYE RY PATIENT MEDICARE (WNR) MEDICARE () PART A November 23, 2011 PART A [id number] KLEBER DYE RY PATIENT MEDICARE (WNR) MEDICARE () PART A November 23, 2011 PART A [id number] KLEBER DYE RY PATIENT MEDICARE (WNR) MEDICARE () PART A November 23, 2011 PART A [id number] KLEBER DYE PATIENT [employer] [place] [employer] PLAN G PLAN G Apr 24, 2013 PLAN G [id number] [phone] KLEBER DYE PATIENT [employer] [place] [employer] PLAN G PLANG Apr 24, 2013 PLANG [id number] KLEBER DYE PATIENT [employer] [place] [employer] PLAN G Apr 24, 2013 PLANG [id number] KLEBER DYE PATIENT Selected Encounter This section includes the information on record at [place] for the Encounter. Date/Time Encounter Type Encounter Description Reason Provider Source Jul 12, 2024 10:30 AM MANUAL THERAPY 1/> [facility] PACK TRAIN DRIVER ICD-10-CM M54.2 Cervicalgia MICHELLE TAVARES Greta Encounter Template Text not used by [place] Assessments - Encounter Diagnoses This section includes the primary and secondary diagnoses documented for the Encounter. Date/Time Primary/Secondary Diagnosis Diagnosis Name Provider Source Aug 05, 2024 10:31 AM PRIMARY [facility] [place] [facility] Plan of Treatment: Future Appointments (+ 6 months) and Future Tests (+/- 45 days) The Plan of Treatment section includes future care activities for the patient from all [place] treatmentfacilities. This section includes future appointments and future orders which are active, pending or scheduled. Future Appointments This section includes appointments that were scheduled to occur 6 months from the date of the Encounter, up to a maximum of 20 appointments. The data comes from all [place] treatment facilities. Appointment Date/Time Appointment Type Appointme nt Facility Name Jul 24, 2024 10:00 AM AMBULATORY - REHAB MEDICIN E [facility] [place] [facility] Aug 09, 2024 10:00 AM AMBULATORY - MEDICINE CO C [facility] [place] [facility] Aug 10, 2024 10:00 AM AMBULATORY - REHAB MEDICIN E [facility] [place] [facility] Aug 14, 2024 11:00 AM AMBULATORY - MEDICINE CO [facility] [place] [facility] Aug 27, 2024 11:00 AM AMBULATORY - NONE [facility] [place] [facility] Aug 28, 2024 10:30 AM AMBULATORY - REHAB MEDICIN E [facility] [place] [facility] Sep 12, 2024 01:00 PM AMBULATORY - REHAB MEDICIN E [facility] [place] [facility] Oct 04, 2024 03:00 PM AMBULATORY - MEDICINE VA C [facility] [place] [facility] Oct 16, 2024 10:00 AM AMBULATORY - MEDICINE VA [facility] [place] [facility] December 12, 2024 11:30 AM AMBULATORY - MEDICINE VA [facility] [place] [facility] Dec 25, 2024 01:00 PM AMBULATORY - MEDICINE [facility] [place] [facility] Jan 01, 2025 09:00 AM AMBULATORY - MEDICINE VA [facility] [place] [facility] Social History: Smoking Status (Most current) and Tobacco Use (All prior to encounter date) This section includes the most current, and the historical, smoking and tobacco- related health factors from the [place] facility where the Encounter took place. Current Smoking Status This section includes the most current smoking, or tobacco-related health factor, from the [place] facility where the Encounter took place. Date/Time Current Smoking Status Comment [facility] Apr 23, 2024 10:00 AM VA-TOBACCO QUIT 5 TO < 15 YRS [facility] [place] [facility] Tobacco Use History This section includes a history of the smoking, or tobacco-related health factors, that were collected on or before the date of the Encounter. The data comes from the [place] facility where the Encounter took place. Date/Time Smoking Status/Tobac co Use Comment Facility Apr 23, 2024 10:00 AM VA-TOBACCO QUIT 5 TO < 15 YRS [facility] [place] [facility] Apr 13, 2023 11:00 AM VA-TOBACCO FORMER USER [facility] [place] [facility] Apr 13, 2023 11:00 AM VA-TOBACCO QUIT 5 TO < 15 YRS [facility] [place] [facility] Apr 14, 2022 01:30 PM VA-TOBACCO FORMER USER [facility] [place] [facility] Apr 14, 2022 01:30 PM VA-TOBACCO QUIT 5 TO < 15 YRS [facility] [place] [facility] Apr 10, 2021 10:00 AM VA-TOBACCO FORMER USER [facility] [place] [facility] Apr 10, 2021 10:00 AM VA-TOBACCO QUIT 5 TO < 15 YRS [facility] [place] [facility] Apr 02, 2020 10:30 AM VA-TOBACCO FORMER USER [facility] [place] [facility] Apr 02, 2020 10:30 AM VA-TOBACCO QUIT 5 TO < 15 YRS [facility] [place] [facility] Sep 29, 2018 08:52 AM VA-TOBACCO FORMER USER [facility] [place] [facility] Sep 29, 2018 08:52 AM VA-TOBACCO QUIT 15 YRS OR MORE [facility] [place] [facility] December 21, 2017 12:27 PM QUIT TOBACCO USE 1-7 YEARS AGO 5 or 6 years ago [facility] [place] [facility] May 19, 2017 10:21 AM QUIT TOBACCO USE 1-7 YEARS AGO [facility] [place] [facility] Aug 19, 2016 09:56 AM QUIT TOBACCO USE 1-7 YEARS AGO [facility] [place] [facility] Feb 12, 2016 11:34 AM QUIT TOBACCO USE 1-7 YEARS AGO [facility] [place] [facility] Aug 08, 2015 03:04 PM QUIT TOBACCO USE 1-7 YEARS AGO [facility] [place] [facility] Aug 08, 2015 03:04 PM QUIT TOBACCO USE IN PAST YEAR pt states he stooped smmoking in the past yr. [facility] [place] [facility] Advance Directives: All historical and current Section Date Range: From patient's date of to the date document was created. This section includes ALL of a patient's completed or amended [place] Advance and Rescinded Directives. The entries below indicate that a directive exists for the patient, but an actual copy is not included with this document. The data comes from all [place] facilities. Date Advance Directives Provider Source Jun 20, 2012 ADVANCE DIRECTIVE DISCUSSION MONIKA IZAGUIRRE [facility] Rad[facility] Reports: +/- 30 days of the [...] the Encounter. The data comes from all [place] treatment facilities. Date/Time Radiology Report Provider Source Jun 14, 2024 10:20 AM LDCT LUNG CANCER SCREENING: SANCHO DYE [id number] -1945 M Exm Date: JUN 14, 2024@10:20 Req Phys: LETICIA WALDEN Pat Loc: ZZCWM/NO/LCS ADMIN (Req'g Loc) Img Loc: [facility]/CT Service: Unknown [facility] [place] [address] (Case [id number] COMPLETE) LDCT LUNG CANCER SCREENING (CT Detailed) CPT:05147 Reason for Study: LUNG CANCER SCREENING Clinical History: 53 TPY-Quit 2012 Prior chest imaging: CT scan the chest from May 25, 2022, May 07, 2021, April 29, 2020, April 18, 2019 and December 12, 2017. LCS LDCT on 06/15/2023: LR 1 Report Status: Verified Date Reported: JUN 14, 2024 Date Verified: JUN 14, 2024 Advertising Teacher E-Sig:/ES/MIRTA NAVAS JR Report: Study: Lung cancer [...] reviewed. Secondary computer-aided detection with post-processing from [employer] that Jerky is used. The lack of intravenous contrast [...] Primary Interpreting Staff: MIRTA NAVAS JR, Radiologist (Advertising Teacher) /MIRTA CASIANO JR [facility] Encounter Notes: All associated encounter notes This [...] 06/24/2023 LETICIA WALDEN AF- Atrial Fibrillation (SCT [id number] 12/23/2017 LETICIA WALDEN Coronary artery disease I25.10, [...] different bed. He just flew down to [place]. HX; During service natural falls down but [...] cortisone which alleviated the sx. Prior healthcare market consultant: yes for R shoulder and neck Activities: [...] Signed: 07/12/2024 10:51 MICHELLE TAVARES [facility]
[2024-11-11 15:13] LABS: MANUAL DIFF FLAG NO
[2024-11-11 15:14] LABS: Basophils Percent Auto 0.6 % (0-2); Eosinophils Absolute Auto 0.5 X10*3/uL (0.0-0.4); Eosinophils Percent Auto 6.4 % (0-4); Hemoglobin 12.2 g/dl (14.0-18.0); Imm Gran Abs Auto 0.02 X10*3/uL (0.00-0.03); Imm Gran Pct Auto 0.3 % (0.0-0.4); Lymphocytes Absolute Auto 1.8 X10*3/uL (1.2-4.9); Lymphocytes Percent Auto 24.4 % (20-40); Mean Corpuscular HGB Conc 33.9 g/dl (31.0-36.0); Mean Corpuscular Hemoglobin 31.9 pg (27.0-33.0); Mean Corpuscular Volume 94.2 fL (80.0-98.0); Mean Platelet Volume 9.8 fL (9.4-12.4); Monocytes Absolute Auto 0.6 X10*3/uL (0.1-1.2); Monocytes Percent Auto 8.7 % (2-11); Neutrophils Absolute Auto 4.3 x10*3/uL (2.0-8.3); Neutrophils Percent Auto 59.6 % (45-73); Platelet Count 201 X10*3/uL (160-400); Red Blood Count 3.82 X10*6/uL (4.60-5.80); Red Cell Distribution Width 13.4 % (11.0-16.0); White Blood Count 7.2 X10*3/uL (4.8-10.8)
[2024-11-11 15:20] LABS: INTERNATIONAL NORM RATIO 1.3 (0.9-1.1); Prothrombin Time 15.4 SEC (10.9-12.4)
[2024-11-11 15:40] LABS: Troponin-I High Sensitivity 9.6 ng/L (<3.5-35.0)
[2024-11-11 15:49] VITALS: BP 127/63; PULSE 79; RESP 16; TEMP 36.6; O2SAT 97
[2024-11-11 15:55] LABS: Alanine Aminotransferase 28 U/L (0-40); Albumin Level 3.8 g/dL (3.5-5.0); Anion Gap 13 (12-20); Aspartate Amino Transferase 25 U/L (5-37); Bilirubin Total 0.5 mg/dL (0.0-1.0); Blood Urea Nitrogen 18 mg/dL (9-16); Calcium 8.8 mg/dL (8.4-10.2); Carbon Dioxide 23 mmol/L (22-29); Chloride 110 mmol/L (96-108); Creatinine Clr Calc Pharmacy 64.8; Estimated Glomerular Filt Rate > 60; Glucose Random 105 mg/dL (60-115); Potassium 4.1 mmol/L (3.3-5.1); Sodium 142 mmol/L (135-145); Total Protein 6.7 g/dL (6.5-8.0)
[2024-11-11 16:32] LABS: Alkaline Phosphatase 77 U/L (39-117)
[2024-11-11] MEDS: iohexoL 350 MG/ML 100 ML INFUS..BTL IV (17:41)
[2024-11-11 18:04] VITALS: BP 120/63; PULSE 73; RESP 16; TEMP 36.6; O2SAT 97
[2024-11-11 20:08] VITALS: BP 120/63; PULSE 73; RESP 16; TEMP 36.6; O2SAT 97
[2024-11-11 22:24] LABS: Erythrocyte Sedimentation Rate 9 MM/HR (0-15)
== END 2024-11-11 20:09 | disposition home or self-care (01) ==
PROVIDERS: Nurse Practitioner Family; Physician Assistant Medical; Emergency Provider Emergency Medicine Emergency Medical Services; PCP Internal Medicine
DX: H43.399 Other vitreous opacities, unspecified eye (principal); H54.7 Unspecified visual loss; D64.9 Anemia, unspecified; I48.91 Unspecified atrial fibrillation; Z79.01 Long term (current) use of anticoagulants
CPT/HCPCS: 36415; 70450; 70496; 70498; 80053; 84484; 85025; 85610; 85652; 86140; 93005; 99284; 99285; Q9967

== ENCOUNTER → 2024-11-11 14:41 | Outpatient (BNV) | payer OTHER, SELFPAY | PROVIDERS: Emergency Provider Emergency Medicine Emergency Medical Services; PCP Internal Medicine; Visit Provider Radiology Diagnostic Radiology | DX: H53.9 Unspecified visual disturbance (principal) | CPT/HCPCS: 70450; 70496; 70498 ==

== ENCOUNTER → 2024-11-11 14:41 | Outpatient (BNV) | payer OTHER, SELFPAY | PROVIDERS: Emergency Provider Emergency Medicine Emergency Medical Services; PCP Internal Medicine; Visit Provider Internal Medicine | DX: I48.91 Unspecified atrial fibrillation (principal) | CPT/HCPCS: 93010 ==

== ENCOUNTER 2024-11-20 14:00 | Outpatient (AMB) | payer OTHER, SELFPAY ==
[2024-11-20 14:04] VITALS: BMI 29.3
--- NOTE | 2024-11-20 14:04 | A.OFFVIS_ITS ---
Vital Signs 11/20/24 14:04 Height 5 ft 10 in Weight 204 lb BMI 29.3 Intake Visit Reasons: Ed referral for subclavian stenosis Intake Note: ED referral for subclavian stenosis on CTA head/neck 11/11/24. Pt states that he see HF Cardio, who does annual carotid and arterial US. Hx of LE stent placements 10+ yrs ago. Accompanied by: Self / Same As Patient Allergies No Known Allergies [No Known Allergies*] Allergy (Verified 11/20/24 14:09) HPI HPI Ed referral for subclavian stenosis: Details: The patient is a 78-year-old male presenting with a consultation regarding subclavian stenosis. He reported experiencing a blood clot in his left eye two years ago, which led to persistent floaters and significant visual disturbances in the left eye. This has gradually worsened over the past 10 days. Diagnostic imaging at a recent emergency department visit identified some blockage of the vertebral and subclavian arteries; however, carotid arteries were primarily clear. Aside from visual problems related to floaters, other vascular symptoms were not reported. 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 Review of Systems Const All systems reviewed & are unremarkable except as noted in HPI and below Reports no additional complaints ENT Reports Normal hearing present Card Denies chest pain, Denies chest pain at rest, Denies chest pain with activity and Denies pedal edema Resp Denies cough GI Denies abdominal pain Musc Denies abnormal gait, Denies muscle cramps and Denies radiating pain into limb Skin/Breast Denies skin ulcer and Denies wounds Neuro Reports Normal hearing present and Denies abnormal gait Psych Reports no additional complaints Physical Exam Vital Signs: BMI result Body Mass Index 29.3 Const General: cooperative, healthy appearing and comfortable Orientation/consciousness: oriented to person, oriented to place and oriented to time HEENT Head: Yes normal to inspection Neck Neck: Yes normal visual inspection Carotids: no bruits Chest Chest palpation & inspection: normal inspection of the chest Resp Effort & Inspection: normal respiratory effort and able to speak in complete sentences Auscultation: clear to auscultation bilaterally, no crackles, no rales, no rhonchi and no wheezes Cardio Rate: regular rate Rhythm: regular rhythm Heart sounds: S1 normal heart sound present and S2 normal heart sound present Bruits: no carotid bruits Peripheral pulses: Peripheral pulses 2+ throughout GI Inspection: Yes normal to inspection Skin Wounds: no wounds Hair: normal Neuro General: oriented to person, oriented to place and oriented to time Cranial nerves: Yes CN's II-XII intact bilaterally and Yes Normal hearing present Cognition (Neuro): normal cognition Motor exam (neuro): 5/5 motor strength present throughout Extrem Other: venous exam: No significant superficial varicosities or spider telangiectasias, minimal edema General: No clubbing, No cyanosis and No edema Psych Appearance: grossly normal Mental Status: mental status grossly normal Speech and movement: Normal speech and movement present Results Reviewed Results Reviewed: CT angiogram dated 11/11/2024 was reviewed and demonstrated severe plaque of the right vertebral artery stenosis of the left vertebral artery. Right internal carotid was at 50% left internal carotid was 20% stenosis there is some mild stenosis of the right subclavian. Assessment & Plan Assessment & Plan (1) Bilateral carotid artery stenosis: Code(s): I65.23 - Occlusion and stenosis of bilateral carotid arteries Category: Medical Plan: I have discussed the findings and recommendations thoroughly with the patient, emphasizing that the results do not currently necessitate surgical intervention. He understands that his eye symptoms relate to floaters rather than blood flow issues, and he will continue receiving intravitreal injections. I explained the importance of following up with Dr. Hall to maintain his broader cardiovascular health and to monitor any vascular developments closely. The patient acknowledges these steps and concurs with the proposed management plan. He will follow up with us on an as-needed basis. Thank you for allowing us to assist in his care. Plan Patient was informed and verbally consented to the use of an ambient scribe for clinic note documentation during this visit. Patient Instructions: - Continue with the prescribed intravitreal injections for the eye floaters. - Keep all scheduled follow-up appointments with Dr. Hall. - Report any new or worsening symptoms such as changes in vision or pain in the arms promptly. - Maintain regular check-ins for cardiovascular health. - Ensure any questions or concerns are directed to their respective specialists. Coding Level of Care Code New Pt Level 4 (88733) Diagnoses Bilateral carotid artery stenosis I65.23
--- OUTSIDE RECORDS SUMMARY | 2024-11-20 16:10 | XMS_ITS ---
Author Name [facility] [place] Organization [facility] [place] Address [address] [place] [address] Care Team Providers Care Tray Server Name Role Phone LETICIA WALDEN Primary Care [...] PART B Apr 24, 2013 PART B [id number] [phone] KLEBER DYE RY PATIENT MEDICARE (WNR) MEDICARE () PART B Apr 24, 2013 PART B [id number] [id number] [phone] KLEBER DYE RY PATIENT MEDICARE (WNR) MEDICARE () PART B Apr 24, 2013 PART B [id number] KLE[place] DYE RY PATIENT MEDICARE (WNR) MEDICARE () PART A November 23, 2011 PART A [id number] KLEBER DYE RY PATIENT MEDICARE (WNR) MEDICARE () PART A November 23, 2011 PART A [id number] KLEBER DYE RY PATIENT MEDICARE (WNR) MEDICARE () PART A November 23, 2011 PART A [id number] KLEBER DYE PATIENT [employer] PLAN G PLAN G Apr 24, 2013 PLAN G [id number] [phone] KLEBER DYE PATIENT [employer] PLAN G Apr 24, 2013 PLANG [id number] KLEBER DYE PATIENT [employer] [place] PL[employer] G PLANG Apr 24, 2013 PLANG [id number] KLEBER DYE PATIENT Selected Encounter This section includes the information on record at [place] for the Encounter. Date/Time Encounter Type Encounter Description Reason Provider Source Mar 20, 2024 09:30 AM MANUAL THERAPY 1/> [employer] ICD-10-CM M54.2 Cervicalgia MICHELLE TAVARES [facility] Encounter Template Text not used by [place] Assessments - Encounter Diagnoses This section includes the primary and secondary diagnoses documented for the Encounter. Date/Time Primary/Secondary Diagnosis Diagnosis Name Provider Source Jul 09, 2024 07:48 AM PRIMARY Cervicalgia MICHELLE TAVARES [facility] Jul 09, 2024 07:48 AM SECONDARY Pain in thoracic spine [facility] [place] [facility] Plan of Treatment: Future Appointments (+ 6 months) and Future Tests (+/- 45 days) The Plan of Treatment section includes future care activities for the patient from all [place] treatmentfacilities. This section includes future appointments and future orders which are active, pending or scheduled. Future Appointments This section includes appointments that were scheduled to occur 6 months from the date of the Encounter, up to a maximum of 20 appointments. The data comes from all [place] treatment facilities. Appointment Date/Time Appointment Type Appointme nt Facility Name Mar 23, 2024 10:30 AM AMBULATORY - MEDICINE [place] [facility] [place] [facility] Mar 29, 2024 11:30 AM AMBULATORY - MEDICINE [place] [facility] [place] [facility] Mar 30, 2024 09:00 AM AMBULATORY - MEDICINE [place] [facility] [place] [facility] Apr 03, 2024 11:30 AM AMBULATORY - MEDICINE [place] [facility] [place] [facility] Apr 03, 2024 12:15 PM AMBULATORY - MEDICINE [place] [facility] [place] [facility] Apr 04, 2024 03:00 PM AMBULATORY - MEDICINE [place] [facility] [place] [facility] Apr 06, 2024 10:30 AM AMBULAT[facility] [place] [facility] Apr 11, 2024 09:30 AM AMBULATORY - MEDICINE [place] [facility] [place] [facility] Apr 16, 2024 03:00 PM AMBULATORY - REHAB MEDICIN E [facility] [place] [facility] Apr 23, 2024 10:00 AM AMBULATORY - MEDICINE [place] [facility] [place] [facility] Apr 24, 2024 10:00 AM AMBULATORY - REHAB MEDICIN E [facility] [place] [facility] Apr 27, 2024 10:15 AM AMBULATORY - MEDICINE [place] [facility] [place] [facility] May 01, 2024 10:00 AM AMBULATORY - REHAB MEDICIN E [facility] [place] [facility] May 16, 2024 10:00 AM AMBULATORY - REHAB MEDICIN E [facility] [place] [facility] May 16, 2024 11:00 AM AMBULATORY - REHAB MEDICIN E [facility] [place] [facility] May 21, 2024 03:00 PM AMBULATORY - REHAB MEDICIN E [facility] [place] [facility] May 29, 2024 10:30 AM AMBULATORY - REHAB MEDICIN E [facility] [place] [facility] Jun 05, 2024 10:00 AM AMBULATORY - REHAB MEDICIN E [facility] [place] [facility] Jun 07, 2024 03:00 PM AMBULATORY - MEDICINE [place] [facility] [place] [facility] Jun 12, 2024 10:00 AM AMBULATORY - REHAB MEDICIN E [facility] [place] [facility] Lab Results: +/- 30 days of the encounter This section includes the Chemistry and Hematology Lab Results on record with [place] for the patient. Radiology Reports and Pathology Reports are provided separately, in subsequent sections. Lab Results This section contains the Chemistry/Hematology Results that were resulted 30 days before or 30 daysafter the date of the Encounter. Date/Time Source Result Type Result - Unit Interpretation Reference Range Specimen Type Comment Apr 19, 2024 09:58 AM [facility] [place] BASIC METABOLIC PANEL (fasting) SERUM Specime n Type: SERUM No comment entered. Ordering Provider: LETICIA WALDEN Report Released Date/Time: Apr 14, 2024 05:40 PM Reporting Lab: [facility] [address] [facility] [address] Performing Lab: [address] [address] UREA NITROGEN 17 mg/dL 7-25 GLUCOSE 103 mg/dL H 65-100 SODIUM 139 mmol/L 135-145 POTASSIUM 4.2 mmol/L 3.5-5.0 CHLORIDE 107 mmol/L 100-110 CO2 25 meq/L 20-30 CREATININE, Serum 1.05 mg/dL 0.50-1.40 eGFR(CKD-EPI 2020) 73 mL/min >60 Apr 19, 2024 09:58 AM [facility] [place] LIVER FUNCTION SERUM Specimen Type: SERUM No comment entered. Ordering Provider: LETICIA WALDEN Report Released Date/Time: Apr 14, 2024 05:40 PM Reporting Lab: [address] [address] Performing Lab: [address] [address] PROTEIN,TOTAL 6.8 g/dL 6.0-8.3 ALBUMIN 3.8 g/dL 3.5-5.0 ALKALINE PHOSPHATASE 69 U/L 40-150 AST 17 U/L 5-34 ALT 27 U/L BILIRUBIN, TOTAL 0.6 mg/dL 0.2-1.2 Apr 19, 2024 09:58 AM [facility] LIPID PANEL FASTING SERUM Specimen Type: SERU M No comment entered. Ordering Provider: LETICIA WALDEN Report Released Date/Time: Apr 14, 2024 05:40 PM Reporting Lab: [address] [address] Performing Lab: [address] [address] CHOLESTEROL 120 mg/dL TRIGLYCERIDE 98 mg/dL 0-150 LDL calculated 63 mg/dL 0-129 CHOL/HDL 3.2 HDL CHOLESTEROL 37 mg/dL L 40-60 Apr 19, 2024 09:58 AM [facility] TSH SERUM Specimen Type: SERUM No comment entered. Ordering Provider: LETICIA WALDEN Report Released Date/Time: Apr 14, 2024 05:40 PM Reporting Lab: [address] [address] Performing Lab: [facility] [address] TSH 2.19 u[IU]/mL 0.35-5.00 Apr 19, 2024 09:58 AM [facility] [place] URIC ACID SERUM Specimen Type: SERUM No comment entered. Ordering Provider: LETICIA WALDEN Report Released Date/Time: Apr 14, 2024 05:40 PM Reporting Lab: [address] [address] Performing Lab: [facility] [address] URIC ACID 3.1 mg/dL L 3.5-7.2 Apr 19, 2024 09:58 AM [facility] [place] CBC AND DIFF (AUTO) BLOOD Specimen Type: BLOO D No comment entered. Ordering Provider: LETICIA WALDEN Report Released Date/Time: Apr 14, 2024 05:40 PM Reporting Lab: [address] [address] Performing Lab: [facility] [address] [address] WBC 6.75 10*3/uL 4.50-11.00 RBC 3.99 10*6/uL [...] 10*3/uL 0.00-0.00 Apr 19, 2024 09:58 AM [facility] URINALYSIS CLEAN CATCH URINE Specimen Type: U RINE Comment: If Glucose = >500 and Ketones are positive, please alert the Physician. Ordering Provider: LETICIA WALDEN Report Released Date/Time: Apr 14, 2024 05:40 PM Reporting Lab: [address] [address] Performing Lab: [address] [address] UA COLOR Light-Yellow Yellow UA APPEARANCE Clear [...] and tobacco- related health factors from the [place] facility where the Encounter took place. Current Smoking Status This section includes the most current smoking, or tobacco-related health factor, from the [place] facility where the Encounter took place. Date/Time Current Smoking Status Comment Facil it Apr 13, 2023 11:00 AM VA-TOBACCO FORMER USER [place] [facility] [place] [facility] Tobacco Use History This section includes a history of the smoking, or tobacco-related health factors, that were collected on or before the date of the Encounter. The data comes from the [place] facility where the Encounter took place. Date/Time Smoking Status/Tobac co Use Comment Facility Apr 13, 2023 11:00 AM VA-TOBACCO QUIT 5 TO < 15 YRS [facility] [place] [facility] Apr 14, 2022 01:30 PM VA-TOBACCO FORMER USER [facility] [place] [facility] Apr 14, 2022 01:30 PM VA-TOBACCO QUIT 5 TO < 15 YRS [facility] [place] [facility] Apr 10, 2021 10:00 AM VA-TOBACCO FORMER USER [facility] [place] [facility] Apr 10, 2021 10:00 AM VA-TOBACCO QUIT 5 TO < 15 YRS [facility] [place] [facility] Apr 02, 2020 10:30 AM VA-TOBACCO FORMER USER [facility] [place] [facility] Apr 02, 2020 10:30 AM VA-TOBACCO QUIT 5 TO < 15 YRS [facility] [place] [facility] Sep 29, 2018 08:52 AM VA-TOBACCO FORMER USER [facility] [place] [facility] Sep 29, 2018 08:52 AM VA-TOBACCO QUIT 15 YRS OR MORE [facility] [place] [facility] December 21, 2017 12:27 PM QUIT TOBACCO USE 1-7 YEARS AGO 5 or 6 years ago [facility] [place] [facility] May 19, 2017 10:21 AM QUIT TOBACCO USE 1-7 YEARS AGO [facility] [place] [facility] Aug 19, 2016 09:56 AM QUIT TOBACCO USE 1-7 YEARS AGO [facility] [place] [facility] Feb 12, 2016 11:34 AM QUIT TOBACCO USE 1-7 YEARS AGO [facility] [place] [facility] Aug 08, 2015 03:04 PM QUIT TOBACCO USE 1-7 YEARS AGO [facility] [place] [facility] Aug 08, 2015 03:04 PM QUIT TOBACCO USE IN PAST YEAR pt states he stooped smmoking in the past yr. [facility] Advance Directives: All historical and current Section Date Range: From patient's date of to the date document was created. This section includes ALL of a patient's completed or amended [place] Advance and Rescinded Directives. The entries below indicate that a directive exists for the patient, but an actual copy is not included with this document. The data comes from all [place] facilities. Date Advance Directives Provider Source Jun [...] the Encounter. The data comes from all [place] treatment facilities. Date/Time Radiology Report Provider Source Mar 09, 2024 09:52 AM SPINE CERVICAL, 4 OR 5 VIEWS: SANCHO DYE EDILBERTO [id number] -[id number] M Ex Date: MAR 09, 2024@09:52 Req Phys: BRYANNA OMORE Pat Loc: CWM/NO/SICK CALL PA (Req'g Loc Img Loc: [facility]BUILD[facility] 1 Service: [place] [id number] (Case [id number] COMPLETE) SPINE CERVICAL, 4 OR 5 VIEWS (RAD Detailed) CPT:01752 Reason for Study: pain with radiating features to the left shoulder Clinical History: Report Status: Verified Date Reported: MAR 09, 2024 Date Verified: MAR 09, 2024 Shipping And Receiving Associate E-Sig:/ES/MIRTA NAVAS JR Report: Study: AP, lateral [...] Primary Interpreting Staff: MIRTA NAVAS JR, Radiologist (Shipping And Receiving Associate) /MIRTA CASIANO JR [facility] Encounter Notes: All associated encounter notes This section contains the clinical notes associated to the Encounter. Date/Time Encounter Note(s) Provider Source Mar 20, 2024 09:17 AM CHIROPRACTIC NOTE: LOCAL TITLE: CHIROPRACTOR PROGRESS NOTE STANDARD TITLE: CHIROPRACTIC NOTE DATE OF NOTE: MAR 20, 2024@09:17 ENTRY DATE: MAR 20, 2024@09:18:03 AUTHOR: MICHELLE TAVARES COSIGNER: URGENCY: STATUS: COMPLETED [...] 06/24/2023 LETICIA WALDEN AF- Atrial Fibrillation (SCT [id number] 12/23/2017 LETICIA WALDEN Coronary artery disease I25.10, [...] R shoulder Takes anti-coagulants Patient presents to [place] [facility] with report that he felt some relief and the neck pain is a little better. He continues to apply ice to area and feels some temporary relief. Vet states that the left interscapular area persists. He cut his lawn yesterday and felt fine afterwards. Patient will speak to OT about resuming therapy. Extension of neck and raising his left [...] different bed. He just flew down to [place]. HX; During service natural falls down but [...] of cortisone which alleviated the sx. 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 Visit 13 F/U 2 appts are scheduled . Patient may request spread of appt Mar 23 to a later date. Seek urgent care as needed. CMT: chiropractic manipulative therapy SMT: Spinal Manipulative Therapy F/D: Flexion Distraction MFR: Myofascial Release S-I: Sacroiliac MFTP: Myofascial Trigger Point NRS: Numeric Rating Scale N/T: Numbness/Tingling PIR: Post isometric relaxation /es/ MICHELLE TAVARES [place] CHIROPRACTOR Signed: 03/20/2024 09:55 MICHELLE TAVARES [place] [facility]
--- OUTSIDE RECORDS SUMMARY | 2024-11-20 16:11 | XMS_ITS | Continuity of Care Document ---
Author Name [facility] Organization [facility] Care Team Providers Care Supervisor Residential Name Role Phone [facility] Unavailable Unavailable Problems Combined list of problems [...] Benign Prostatic Hypertrophy without Outflow Obstruction (SCT [id number]) Active 07/25/19 22 Condition Oct 06, 2021 [...] [facility] AF- Atrial Fibrillation (SCT 96953146) Active 07/25/19 18 Condition [facility] Alcohol Abuse-Unspec Active Condition [facility] Arthralgia * (ICD-9-CM 719.40) Active Condition [facility] Benign Hypertrophy Prostate/Bph Active Condition [facility] Coronary arteriosclerosis Active Condition [facility] Depressive disorder, NOS Active Condition [facility] Erectile Dysfunction * (ICD-9-CM 302.72) Active Condition [facility] Exposure to potentially hazardous substance Active Condition Oct 13, 2022 Entered By: PB WALDEN Comment: education provided [facility] [place] [facility] Gastroesophageal Reflux Disorder * (ICD-9-CM 530.81) Active Condition [facility] Hemorrhoids * (ICD-9-CM 455.6) Active Condition [facility] History of polyp of colon (SNOMED CT 429885202) Active Condition [facility] Hydrocele * (ICD-9-CM 603.9) Active Condition [facility] Hydrocele Nos Active Condition [facility] Hyperlipidemia Active Condition [facility] [place] Hypertension * (ICD-9-CM 401.9) Active Condition [facility] Kidney Stones (ICD-9-CM 592.0) Active Condition [facility] Lateral Epicondylitis (Tennis Elbow) (ICD-9-CM 726.32) Active Condition [facility] [place] Lateral epicondylitis * (ICD-9-CM 726.32) Active Condition [facility] Nicotine Addict Active Condition [facility] OVERWEIGHT (ICD-9-CM 278.02) Active [facility] [...] Diagnosis: ICD-10-CM I25.10 Athscl heart disease of [place] coronary artery w/o ang pctrs Active Diagnosis [...] of skin and subcutaneous tissue Active Diagnosis [facility] Diagnosis: ICD-10-CM Z13.89 Encounter for screening for other disorder Active Diagnosis [facility] [place] [facility] Diagnosis: ICD-10-CM I63.9 Cerebral infarction, unspecified Active Diagnosis [facility] [place] [facility] Diagnosis: ICD-10-CM 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, left eye Active Diagnosis [facility] Diagnosis: ICD-10-CM H54.50 Low vision, one eye, unspecified eye Active Diagnosis [facility] [place] [facility] Diagnosis: ICD-10-CM Z23 Encounter for immunization Active [facility] Medications Combined list [...] MOUTH FOUR TIMES DAILY NEEDED ORAL 09/21/2024 [id number] FRANCK WALDEN D 2023 240 [facility] ALLOPURINOL 300MG TAB TAKE ONE TABLET BY MOUTH EVERY DAY FOR GOUT ORAL ACTIVE 07/07/2025 [id number] 5 FRANCK WALDEN D 2024 90 [facility] ALLOPURINOL 300MG TAB TAKE ONE TABLET BY MOUTH EVERY DAY FOR GOUT ORAL DISCONT INUED 10/09/2024 [id number] 4 FRANCK WALDEN D 2023 90 [facility] AMMONIUM LACTATE 12% LOTION APPLY SMALL AMOUNT TOPICALL Y ONCE DAILY FOR DRY IRRITATE D SKIN TOPICA L ACTIVE 06/08/2025 [id number] MALCOM BYERS D 2023 240 [facility] APIXABAN 5MG TAB TAKE ONE TABLET BY MOUTH TWICE DAILY ORAL ACTIVE 07/25/2025 [id number] 5 FRANCK WALDEN D 2024 180 [facility] APIXABAN 5MG TAB TAKE ONE TABLET BY MOUTH TWICE DAILY ORAL DISCONT INUED 07/31/2024 [id number] 4 FRANCK WALDEN D 2023 180 [facility] ASPIRIN 81MG TAB,CHEWABL E CHEW ONE TABLET BY MOUTH DAILY ORAL ACTIVE KENNY IZAGUIRRE KEMAR H 2010 [facility] [place] ATORVASTATI N CA 40MG TAB TAKE ONE TABLET BY MOUTH AT BEDTIME FOR CHOLESTE ROL ORAL ACTIVE 07/07/2025 [id number] 5 FRANCK WALDEND D 2023 90 [facility] [place] [facility] ATORVASTATI N CA 40MG TAB TAKE ONE TABLET BY MOUTH AT BEDTIME FOR CHOLESTE ROL ORAL DISCONT INUED 07/22/2024 [id number] 4 FRANCK WALDEN D 2023 90 [facility] CALCIUM CARBONATE 650MG TAB TAKE TWO TABLETS BY MOUTH qid ORAL ACTIVE Miriam MARTINS 2005 [facility] [place] CILOSTAZOL 50MG TAB TAKE ONE TABLET BY MOUTH TWICE DAILY -TAKE 30 MINUTES BEFORE MEALS OR TWO HOURS AFTER MEALS ORAL ACTIVE 09/30/2025 [id number] 5 FRANCK WALDEN D 2024 180 [facility] CILOSTAZOL 50MG TAB TAKE ONE TABLET BY MOUTH TWICE DAILY -TAKE 30 MINUTES BEFORE MEALS OR TWO HOURS AFTER MEALS ORAL DISCONT INUED 10/09/2024 [id number] 4 FRANCK WALDEND D 2023 180 [facility] CLOPIDOGREL BISULFATE 75MG TAB TAKE ONE TABLET BY MOUTH EVERY DAY ORAL ACTIVE 09/30/2025 [id number] 5 FRANCK WALDEN D 2024 90 [facility] [place] CLOPIDOGREL BISULFATE 75MG TAB TAKE ONE TABLET BY MOUTH EVERY DAY ORAL DISCONT INUED 10/09/2024 [id number] 4 FRANCK WALDEN D 2023 90 [facility] [place] CYCLOBENZAP RINE HCL 10MG TAB TAKE ONE TABLET BY MOUTH THREE TIMES DAILY NEEDED ORAL 09/21/2024 [id number] FRANCK WALDEN RUTHANN D 2023 90 [facility] [place] DICLOFENAC NA 1% GEL,TOP APPLY 2 GRAMS TOPICALL Y FOUR TIMES A DAY FOR JOINT PAIN FOR OSTEOART HRITIS - USE DOSING CARD PROVIDED IN BOX TOPICA Malini 04/05/2024 [id number] CAREY MOORE OTTO MARSH 2023 100 [facility] [place] FISH OIL 1000MG (500MG DHA/EPA) CAP,ORAL TAKE 1 CAPSULE BY MOUTH EVERY DAY ORAL ACTIVE KENNY IZAGUIRRE LD H 2008 [facility] [place] FLUTICASONE PROPIONATE 50MCG/SPRAY SOLN,NASAL, 16GM INSTILL 1 SPRAY INTO EACH NOSTRIL TWICE DAILY NEEDED FOR NASAL IRRITATI ON/INFLA MMATION NASAL ACTIVE 07/13/2025 [id number] FRANCK WALDEN RUTHANN D 2023 1 [facility] [place] POTASSIUM 100MG TAB TAKE ONE TABLET BY MOUTH ONCE DAILY FOR BLOOD PRESSURE /HEART ORAL ACTIVE 07/07/2025 [id number] 5 FRANCK WALDEN RUTHANN D 2024 90 [facility] [place] POTASSIUM 100MG TAB TAKE ONE TABLET BY MOUTH ONCE DAILY FOR BLOOD PRESSURE /HEART ORAL DISCONT INUED 10/09/2024 [id number] 4 FRANCK WALDEN RUTHANN D 2023 90 [facility] METOPROLOL SUCCINATE 100MG TAB,SA TAKE ONE TABLET BY MOUTH ONCE DAILY FOR BLOOD PRESSURE /HEART ORAL ACTIVE 12/20/2024 [id number] SAGRARIO QUIROS 2023 90 [facility] METOPROLOL SUCCINATE 100MG TAB,SA TAKE ONE TABLET BY MOUTH ONCE DAILY FOR BLOOD PRESSURE /HEART DISCON TINUE 25 MG TABLET UNLESS PROVIDER HAS TOLD YOU OTHERWIS E ORAL 11/26/2023 [id number] SUSAN QUIROSIN 2022 90 [facility] MULTIVITAMI NS W/MINERALS CAP/TAB TAKE 1 TABLET BY MOUTH EVERY DAY FOR VITAMIN SUPPLEME NTATION ORAL ACTIVE 07/07/2025 [id number] 5 FRANCK WALDEND D 2024 100 [facility] MULTIVITAMI NS W/MINERALS CAP/TAB TAKE 1 TABLET BY MOUTH EVERY DAY FOR VITAMIN SUPPLEME NTATION ORAL DISCONT INUED 08/18/2024 [id number] 4 FRANCK WALDEN D 2023 100 [facility] PANTOPRAZOL E NA 20MG TAB,EC TAKE ONE TABLET BY MOUTH EVERY DAY ORAL ACTIVE 07/07/2025 [id number] 5 FRANCK WALDEN D 2024 90 [facility] PANTOPRAZOL E NA 20MG TAB,EC TAKE ONE TABLET BY MOUTH EVERY DAY ORAL DISCONT INUED 08/08/2024 [id number] 4 FRANCK WALDEN 2023 90 [facility] TAMSULOSIN HCL 0.4MG CAP TAKE ONE CAPSULE BY MOUTH AT BEDTIME FOR ENLARGED PROSTATE ORAL ACTIVE 07/25/2025 [id number] 5 FRANCK WALDEN D 2023 90 [facility] TAMSULOSIN HCL 0.4MG CAP TAKE ONE CAPSULE BY MOUTH AT BEDTIME FOR ENLARGED PROSTATE ORAL DISCONT INUED 08/08/2024 [id number] FRANCK WALDEN D 2023 90 [facility] Immunizations Combined list of available immunizations from the Department of Defense and Veterans Affairs facilities. Immunization Series Date Given Administered By Site Reaction Lot Number CVX Code Drug Employment Supervisor Status Comments Source COVID-19 (MODERNA), MRNA, LNP-S, PF, 50 MCG/0.5 ML (AGES 12+ YEARS) 2023 RADHAMES SMITH H RIGHT DELTO ID [id number] 312 complet ed [facility] INFLUENZA, HIGH-DOSE, TRIVALENT, PF 2023 RADHAMES SMITH SSA H RIGHT [place] ID [id number] 135 complet ed [facility] COVID-19 (MODERNA), MRNA, LNP-S, PF, 50 MCG/0.5 ML (AGES 12+ YEARS) 5 2023 ALBERT SMITH RIGHT DELTO ID [id number] 312 complet ed [facility] RSV, BIVALENT, PROTEIN SUBUNIT RSVPREF, DILUENT RECONSTITUTED , 0.5 ML, PF 2022 KISHAN CORREA LEFT DELTO ID [id number] 305 complet ed Completed Series, [facility] INFLUENZA, HIGH-DOSE, QUADRIVALENT 2022 KISHAN CORREA LEFT DEL[place] ID [id number] 197 complet ed Completed Series, [facility] COVID-19 (MODERNA), MRNA, LNP-S, BIVALENT BOOSTER, PF, 50 MCG/0.5 ML OR 25MCG/0.25 ML DOSE 2021 229 complet ed Booster for Series, HISTORICA L INFORMATI ON - SOURCE UNSPECIFI ED, Lot#: [id number] [facility] INFLUENZA VACCINE, QUADRIVALENT, ADJUVANTED 2021 205 complet ed [facility] COVID-19 (MODERNA), MRNA, LNP-S, PF, 100 MCG/0.5ML DOSE OR 50 MCG/0.25ML DOSE 3 2021 207 complet ed MOD; [id number]; 2 [facility] COVID-19 (MODERNA), MRNA, LNP-S, PF, 100 MCG OR 50 MCG DOSE 3 2020 207 complet ed MOD; [id number]; 2 [facility] INFLUENZA VACCINE, QUADRIVALENT, ADJUVANTED 2020 205 complet ed [facility] COVID-19 (PFIZER), MRNA, LNP-S, PF, 30 MCG/0.3 ML DOSE 2 2020 208 complet ed PFR; [id number]; 1 [facility] COVID-19 (PFIZER), MRNA, LNP-S, PF, 30 MCG/0.3 ML DOSE 1 2020 208 complet ed PFR; [id number]; 1 [facility] [...] CONJUGATE PCV 13 2014 133 complet ed [facility] PNEUMOCOCCAL CONJUGATE PCV 13 2014 133 complet ed yes [facility] INFLUENZA, UNSPECIFIED FORMULATION 2013 88 complet ed [facility] [place] INFLUENZA, UNSPECIFIED FORMULATION 2012 88 complet ed [facility] [place] PNEUMOCOCCAL, UNSPECIFIED FORMULATION 2012 NONE 109 complet ed [facility] [place] PNEUMOCOCCAL POLYSACCHARID E PPV23 2012 33 complet ed yes [facility] INFLUENZA, UNSPECIFIED FORMULATION 2011 88 complet ed [facility] [place] INFLUENZA, UNSPECIFIED FORMULATION 2010 88 complet ed [facility] TD(ADULT) UNSPECIFIED FORMULATION 2010 NONE 139 complet ed given L deltoid; expiratio n 07/29/12; lot # [id number] [facility] [place] INFLUENZA, UNSPECIFIED FORMULATION 2008 88 complet ed [facility] [place] INFLUENZA, UNSPECIFIED FORMULATION 2007 88 complet ed [facility] [place] INFLUENZA, UNSPECIFIED FORMULATION 2006 88 complet ed [facility] [place] INFLUENZA, UNSPECIFIED FORMULATION 2005 88 complet ed [facility] [place] INFLUENZA, UNSPECIFIED FORMULATION 2004 88 complet ed [facility] [place] INFLUENZA, UNSPECIFIED FORMULATION 2004 88 complet ed [facility] [place] PNEUMOCOCCAL, UNSPECIFIED FORMULATION 2003 109 complet ed [facility] [place] INFLUENZA, UNSPECIFIED FORMULATION 2002 88 complet ed [facility] [place] INFLUENZA, WHOLE 2001 EVANGELINA FUNK 16 complet ed [facility] [place] INFLUENZA, WHOLE 2000 16 complet ed [facility] TD(ADULT) UNSPECIFIED FORMULATION 2000 EMMY JIANG [place] DOT 139 complet [facility] [place] Combined list of recent chemistry, hematology [...] Lab: [facility] [address] [facility] [address] Performing Lab: [facility] [place] [facility] [address] [facility] [address] [facility] URINALYS IS CLEAN CATCH APPEARANCE OF URINE Clear 10/16 Specimen Type: URINE Comment: If Glucose = >500 and Ketones are positive, please alert the Physician. Ordering Provider: PB WALDEN Report Released Date/Time: Oct 16, 2024 10:21 AM Reporting Lab: [facility] [place] [facility] [address] [facility] [address] Performing Lab: [facility] [place] [facility] [address] [facility] [address] [facility] URINALYS IS CLEAN CATCH GLUCOSE [MASS/VOLU ME] IN URINE Normalmg /dL 10/16 Specimen Type: URINE Comment: If Glucose = >500 and Ketones are positive, please alert the Physician. Ordering Provider: PB WALDEN Report Released Date/Time: Oct 16, 2024 10:21 AM Reporting Lab: [facility] [place] [facility] [address] [facility] [address] Performing Lab: [facility] [place] [facility] [address] [facility] [address] [facility] URINALYS IS CLEAN CATCH KETONES [MASS/VOLU ME] IN URINE BY TEST STRIP NEGATIVE mg/dL 10/16 Specimen Type: URINE Comment: If Glucose = >500 and Ketones are positive, please alert the Physician. Ordering Provider: PB WALDEN Report Released Date/Time: Oct 16, 2024 10:21 AM Reporting Lab: [facility] [place] [facility] [address] [facility] [address] Performing Lab: [facility] [place] [facility] [address] [facility] [address] [facility] [place] [facility] URINALYS IS CLEAN CATCH ERYTHROCYT ES [PRESENCE] IN URINE SEDIMENT BY LIGHT MICROSCOPY NEGATIVE mg/dL 10/16 Specimen Type: URINE Comment: If Glucose = >500 and Ketones are positive, please alert the Physician. Ordering Provider: PB WALDEN Report Released Date/Time: Oct 16, 2024 10:21 AM Reporting Lab: [facility] [place] [facility] [address] [facility] [address] Performing Lab: [facility] [place] [facility] [address] [facility] [address] [facility] [place] [facility] URINALYS IS CLEAN CATCH PROTEIN [MASS/VOLU ME] IN URINE BY TEST STRIP NEGATIVE mg/dL 10/16 Specimen Type: URINE Comment: If Glucose = >500 and Ketones are positive, please alert the Physician. Ordering Provider: PB WALDEN Report Released Date/Time: Oct 16, 2024 10:21 AM Reporting Lab: [facility] [place] [facility] [address] [facility] [address] Performing Lab: [facility] [place] [facility] [address] [facility] [address] [facility] [place] [facility] URINALYS IS CLEAN CATCH NITRITE [PRESENCE] IN URINE NEGATIVE mg/dL 10/16 Specimen Type: URINE Comment: If Glucose = >500 and Ketones are positive, please alert the Physician. Ordering Provider: PB WALDEN Report Released Date/Time: Oct 16, 2024 10:21 AM Reporting Lab: [facility] [place] [address] [address] Performing Lab: [facility] [place] [address] [address] [facility] [place] [facility] URINALYS IS CLEAN CATCH BILIRUBIN. TOTAL [PRESENCE] IN URINE NEGATIVE mg/dL 10/16 Specimen Type: URINE Comment: If Glucose = >500 and Ketones are positive, please alert the Physician. Ordering Provider: PB WALDEN Report Released Date/Time: Oct 16, 2024 10:21 AM Reporting Lab: [facility] [place] [facility] [address] [facility] [address] Performing Lab: [facility] [place] [facility] [address] [facility] [address] [facility] URINALYS IS CLEAN CATCH SPECIFIC GRAVITY OF URINE BY REFRACTOME TRY 1.019 1.016 - 1.022 10/16 Specimen Type: URINE Comment: If Glucose = >500 and Ketones are positive, please alert the Physician. Ordering Provider: PB WALDEN Report Released Date/Time: Oct 16, 2024 10:21 AM Reporting Lab: [facility] [place] [facility] [address] [facility] [address] Performing Lab: [facility] [place] [facility] [address] [facility] [address] [facility] [place] [facility] URINALYS IS CLEAN CATCH PH OF URINE BY TEST STRIP 6.0 5.0 - 9.0 10/16 Specimen Type: URINE Comment: If Glucose = >500 and Ketones are positive, please alert the Physician. Ordering Provider: PB WALDEN Report Released Date/Time: Oct 16, 2024 10:21 AM Reporting Lab: [facility] [place] [facility] [address] [facility] [address] Performing Lab: [facility] [place] [facility] [address] [facility] [address] [facility] [place] [facility] URINALYS IS CLEAN CATCH UROBILINOG EN [MASS/VOLU ME] IN URINE BY TEST STRIP Normalmg /dL <2.0 - 2.0 10/16 Specimen Type: URINE Comment: If Glucose = >500 and Ketones are positive, please alert the Physician. Ordering Provider: PB WALDEN Report Released Date/Time: Oct 16, 2024 10:21 AM Reporting Lab: [facility] [place] [facility] [address] [facility] [address] Performing Lab: [facility] [place] [facility] [address] [facility] [address] [facility] [facility] URINALYS IS CLEAN CATCH LEUKOCYTE ESTERASE [PRESENCE] IN URINE BY TEST STRIP NEGATIVE 10/16 Specimen Type: URINE Comment: If Glucose = >500 and Ketones are positive, please alert the Physician. Ordering Provider: PB WALDEN Report Released Date/Time: Oct 16, 2024 10:21 AM Reporting Lab: [facility]ITALRHARTSEL[facility]ENTERN [facility]OSPITALUSE[address] [address] Performing Lab: [facility]N [facility] HOSPITALUSER[facility] [address] [facility] [address] [facility]PITALRHARTSELLE MEDICAL CENTERN THE OR[facility] SPECIALTY HOSPITALUSE [facility] TSH THYROTROPI N [UNITS/VOL UME] IN SERUM OR PLASMA 2.11 u[IU]/mL 0.35 - 5.00 10/04 Specimen Type: SERUM No comment entered. Ordering Provider: PB WALDEN Report Released Date/Time: Oct 04, 2024 12:06 PM Reporting Lab: [facility]ITALRHARTSELLE [facility]ENTERN [facility]OSPITALUSE[address] [address] Performing Lab: [facility]ITALRL TRN [facility]PITALUSE[address] [address] [facility] BASIC METABOLI C PANEL (fasting ) UREA NITROGEN [MASS/VOLU ME] IN SERUM OR PLASMA 17 mg/dL 7 - 25 10/04 Specimen Type: SERUM No comment entered. Ordering Provider: PB WALDEN Report Released Date/Time: Oct 04, 2024 12:06 PM Reporting Lab: [facility]OSPITALRCENTRAL ALAB[facility]–MONTGOMERYTRN MASSUSEROSWE[facility] [address] [facility] [address] Performing Lab: [facility]ITALRL TRN [facility]ITALUSE[address] [address] [facility]PITALRHARTSELLE MEDICAL CENTERN THE [facility] SPECIAL[facility] HOSPITALUSE [facility] BASIC METABOLI C PANEL (fasting ) GLUCOSE [MASS/VOLU ME] IN SERUM OR PLASMA 101 mg/dL 65 - 100 10/04 H Specimen Type: SERUM No comment entered. Ordering Provider: PB WALDEN Report Released Date/Time: Oct 04, 2024 12:06 PM Reporting Lab: [facility]PITALRCENTRAL AL[facility]ENTER–MONTGOMERYTRN [facility]ITALUSE[address] [address] Performing Lab: [facility] [place] [facility] [address] [facility] [address] [facility] [place] [facility] BASIC METABOLI C PANEL (fasting ) SODIUM [MOLES/VOL UME] IN SERUM OR PLASMA 139 mmol/L 135 - 145 10/04 Specimen Type: SERUM No comment entered. Ordering Provider: PB WALDEN Report Released Date/Time: Oct 04, 2024 12:06 PM Reporting Lab: [facility] [place] [facility] [address] [facility] [address] Performing Lab: [facility] [place] [facility] [address] [facility] [address] [facility]RL W[facility]N [facility] BASIC METABOLI C PANEL (fasting ) POTASSIUM [MOLES/VOL UME] IN SERUM OR PLASMA 4.5 mmol/L 3.5 - 5.0 10/04 Specimen Type: SERUM No comment entered. Ordering Provider: PB WALDEN Report Released Date/Time: Oct 04, 2024 12:06 PM Reporting Lab: [facility] [place] [facility] [address] [facility] [address] Performing Lab: [facility] [place] [facility] [address] [facility] [address] [facility]ITALRL WSTRN [facility]OSPITALUSE [facility] BASIC METABOLI C PANEL (fasting ) CHLORIDE [MOLES/VOL UME] IN SERUM OR PLASMA 108 mmol/L 100 - 110 10/04 Specimen Type: SERUM No comment entered. Ordering Provider: PB WALDEN Report Released Date/Time: Oct 04, 2024 12:06 PM Reporting Lab: [facility] [place] [facility] [address] [facility] [address] Performing Lab: [facility] [place] [facility] [address] [facility] [address] [facility]ITALRL W[facility]N [place] [facility] BASIC METABOLI C PANEL (fasting ) CARBON DIOXIDE, TOTAL [MOLES/VOL UME] IN SERUM OR PLASMA 23 meq/L 20 - 30 10/04 Specimen Type: SERUM No comment entered. Ordering Provider: PB WALDEN Report Released Date/Time: Oct 04, 2024 12:06 PM Reporting Lab: [facility] [place] [place] [facility] [address] [facility] [id number] Performing Lab: [facility] [place] [facility] [address] [facility] [address] [facility] [place] [facility] BASIC METABOLI C PANEL (fasting ) CALCIUM [MASS/VOLU ME] IN SERUM OR PLASMA 8.8 mg/dL 8.5 - 10.2 10/04 Specimen Type: SERUM No comment entered. Ordering Provider: PB WALDEN Report Released Date/Time: Oct 04, 2024 12:06 PM Reporting Lab: [facility] [place] [facility] [address] [facility] [address] Performing Lab: [facility] [place] [facility] [address] [facility] [address] [facility] [place] [facility] BASIC METABOLI C PANEL (fasting ) CREATININE [MASS/VOLU ME] IN SERUM OR PLASMA 1.11 mg/dL 0.50 - 1.40 10/04 Specimen Type: SERUM No comment entered. Ordering Provider: PB WALDEN Report Released Date/Time: Oct 04, 2024 12:06 PM Reporting Lab: [facility] [place] [place] [facility] [address] [facility] [address] Performing Lab: [facility] [place] [facility] [address] [facility] [address] [facility] [place] [facility] BASIC METABOLI C PANEL (fasting ) GLOMERULAR FILTRATION RATE/1.73 SQ M.PREDICTE D [VOLUME RATE/AREA] IN SERUM, PLASMA OR BLOOD BY CREATININE -BASED FORMULA (CKD-EPI 2020) 68 mL/min 60 10/04 Specimen Type: SERUM No comment entered. Ordering Provider: PB WALDEN Report Released Date/Time: Oct 04, 2024 12:06 PM Reporting Lab: [facility] [place] [facility] [address] [facility] [address] Performing Lab: [facility] [place] [facility] [address] [facility] [address] [facility] [place] [facility] LIPID PANEL FASTING CHOLESTERO L [MASS/VOLU ME] IN SERUM OR PLASMA 88 mg/dL 10/04 Specimen Type: SERUM No comment entered. Ordering Provider: PB WALDEN Report Released Date/Time: Oct 04, 2024 12:06 PM Reporting Lab: [facility] [place] [facility] [address] [facility] [address] Performing Lab: [facility] [address] [facility] [address] [facility] [place] [facility] LIPID PANEL FASTING TRIGLYCERI DE [MASS/VOLU ME] IN SERUM OR PLASMA 84 mg/dL 0 - 150 10/04 Specimen Type: SERUM No comment entered. Ordering Provider: PB WALDEN Report Released Date/Time: Oct 04, 2024 12:06 PM Reporting Lab: [facility]ITALRL TRN [facility]ITALUSE[address] [address] Performing Lab: [facility] [place] [facility] [address] [facility] [address] [facility]RL TRN [facility]PITALUSE [facility] LIPID PANEL FASTING CHOLESTERO L IN LDL [MASS/VOLU ME] IN SERUM OR PLASMA BY CALCDARRIUS N 41 mg/dL 0 - 129 10/04 Specimen Type: SERUM No comment entered. Ordering Provider: PB WALDEN Report Released Date/Time: Oct 04, 2024 12:06 PM Reporting Lab: [facility] [place] [facility] [address] [facility] [address] Performing Lab: [facility] [place] [facility] [address] [facility] [address] [facility] [place] [facility] LIPID PANEL FASTING CHOLESTERO L.TOTAL/CH OLESTEROL IN HDL [MASS RATIO] IN SERUM OR PLASMA 2.9 10/04 Specimen Type: SERUM No comment entered. Ordering Provider: PB WALDEN Report Released Date/Time: Oct 04, 2024 12:06 PM Reporting Lab: [facility] [place] [facility] [address] [facility] [address] Performing Lab: [facility] [place] [facility] [address] [facility] [address] [facility] [place] [facility] LIPID PANEL FASTING CHOLESTERO L IN HDL [MASS/VOLU ME] IN SERUM OR PLASMA 30 mg/dL 40 - 60 10/04 L Specimen Type: SERUM No comment entered. Ordering Provider: PB WALDEN Report Released Date/Time: Oct 04, 2024 12:06 PM Reporting Lab: [facility] [place] [facility] [address] [facility] [address] Performing Lab: [facility] [place] [facility] [address] [facility] [address] [facility] [place] [facility] LIVER FUNCTION PROTEIN [MASS/VOLU ME] IN SERUM OR PLASMA 6.4 g/dL 6.0 - 8.3 10/04 Specimen Type: SERUM No comment entered. Ordering Provider: PB WALDEN Report Released Date/Time: Oct 04, 2024 12:06 PM Reporting Lab: [facility] [place] [facility] [address] [facility] [address] Performing Lab: [facility] [place] [facility] [address] [facility] [address] [facility] [place] [facility] LIVER FUNCTION ALBUMIN [MASS/VOLU ME] IN SERUM OR PLASMA 3.5 g/dL 3.5 - 5.0 10/04 Specimen Type: SERUM No comment entered. Ordering Provider: PB WALDEN Report Released Date/Time: Oct 04, 2024 12:06 PM Reporting Lab: [facility] [place] [facility] [address] [facility] [address] Performing Lab: [facility] [place] [facility] [address] [facility] [address] [facility] [place] [facility] LIVER FUNCTION ALKALINE PHOSPHATAS E [ENZYMATIC ACTIVITY/V OLUME] IN SERUM OR PLASMA 66 U/L 40 - 150 10/04 Specimen Type: SERUM No comment entered. Ordering Provider: PB WALDEN Report Released Date/Time: Oct 04, 2024 12:06 PM Reporting Lab: [facility] [place] [facility] [address] [facility] [address] Performing Lab: [facility] [place] [facility] [address] [facility] [address] [facility] [place] [facility] LIVER FUNCTION ASPARTATE AMINOTRANS FERASE [ENZYMATIC ACTIVITY/V OLUME] IN SERUM OR PLASMA 13 U/L 5 - 34 10/04 Specimen Type: SERUM No comment entered. Ordering Provider: PB WALDEN Report Released Date/Time: Oct 04, 2024 12:06 PM Reporting Lab: [facility] [place] [facility] [address] [facility] [address] Performing Lab: [facility] [place] [facility] [address] [facility] [address] [facility] [place] [facility] LIVER FUNCTION ALANINE AMINOTRANS FERASE [ENZYMATIC ACTIVITY/V OLUME] IN SERUM OR PLASMA 15 U/L 10/04 Specimen Type: SERUM No comment entered. Ordering Provider: PB WALDEN Report Released Date/Time: Oct 04, 2024 12:06 PM Reporting Lab: [facility] [place] [facility] [address] [facility] [address] Performing Lab: [facility] [place] [facility] [address] [facility] [address] [facility]ITALRL WSTRN [facility]USE [facility] LIVER FUNCTION BILIRUBIN. TOTAL [MASS/VOLU ME] IN SERUM OR PLASMA 0.7 mg/dL 0.2 - 1.2 10/04 Specimen Type: SERUM No comment entered. Ordering Provider: PB WALDEN Report Released Date/Time: Oct 04, 2024 12:06 PM Reporting Lab: [facility] [place] [facility] [address] [facility] [address] Performing Lab: [facility] [place] [facility] [address] [facility] [address] [facility]ITALRL TRN [facility]USE [facility] URIC ACID URATE [MASS/VOLU ME] IN SERUM OR PLASMA 3.1 mg/dL 3.5 - 7.2 10/04 L Specimen Type: SERUM No comment entered. Ordering Provider: PB WALDEN Report Released Date/Time: Oct 04, 2024 12:06 PM Reporting Lab: [facility] [place] [facility] [address] [facility] [address] Performing Lab: [facility] [place] [facility] [address] [facility] [address] [facility] [place] [facility] [employer] PIC AUTOMATE D, URINE LEUKOCYTES [#/AREA] IN URINE SEDIMENT BY MICROSCOPY HIGH POWER FIELD 0-5/[HPF ] 0 - 5 10/04 Specimen Type: URINE Comment: If Glucose = >500 and Ketones are positive, please alert the Physician. Ordering Provider: PB WALDEN Report Released Date/Time: Oct 04, 2024 12:06 PM Reporting Lab: [facility] [place] [facility] [address] [facility] [address] Performing Lab: [facility] [place] [address] [address] [facility] [place] [facility] [employer] P[employer] AUTOMATE D, URINE MUCUS [#/AREA] IN URINE SEDIMENT BY MICROSCOPY LOW POWER FIELD FEW/[LPF ] 10/04 Specimen Type: URINE Comment: If Glucose = >500 and Ketones are positive, please alert the Physician. Ordering Provider: PB WALDEN Report Released Date/Time: Oct 04, 2024 12:06 PM Reporting Lab: [facility] [place] [facility] [address] [facility] [address] Performing Lab: [facility] [place] [facility] [address] [facility] [address] [facility] [place] [facility] [employer] P[employer] AUTOMATE D, URINE HYALINE CASTS [#/AREA] IN URINE SEDIMENT BY MICROSCOPY LOW POWER FIELD 5-9/[LPF ] 0 - 2 10/04 H Specimen Type: URINE Comment: If Glucose = >500 and Ketones are positive, please alert the Physician. Ordering Provider: PB WALDEN Report Released Date/Time: Oct 04, 2024 12:06 PM Reporting Lab: [facility] [place] [facility] [address] [facility] [address] Performing Lab: [facility] [place] [address] [place] [address] [facility]OSPITALUSE [facility] [employer] P[employer] AUTOMATE D, URINE ERYTHROCYT ES [#/AREA] IN URINE SEDIMENT BY MICROSCOPY HIGH POWER FIELD 6-10/[HP F] 0 - 3 10/04 H Specimen Type: URINE Comment: If Glucose = >500 and Ketones are positive, please alert the Physician. Ordering Provider: PB WALDEN Report Released Date/Time: Oct 04, 2024 12:06 PM Reporting Lab: [facility]OSPITALUSER[facility] [address] [facility] [address] Performing Lab: [address] [address] [facility]USE [facility] CBC AND DIFF (AUTO) LEUKOCYTES [#/VOLUME] IN BLOOD BY AUTOMATED COUNT 6.37 10*3/uL 4.50 - 11.00 10/04 Specimen Type: BLOOD No comment entered. Ordering Provider: PB WALDEN Report Released Date/Time: Oct 04, 2024 12:06 PM Reporting Lab: [facility] [address] [facility] [address] Performing Lab: [facility]PITALUSER[facility] [address] [facility] [address] [facility] CBC AND DIFF (AUTO) ERYTHROCYT ES [#/VOLUME] IN BLOOD BY AUTOMATED COUNT 3.82 10*6/uL 4.23 - 5.66 10/04 L Specimen Type: BLOOD No comment entered. Ordering Provider: PB WALDEN Report Released Date/Time: Oct 04, 2024 12:06 PM Reporting Lab: [address] [address] Performing Lab: [facility]OSPITALUSE[address] [address] [facility] CBC AND DIFF (AUTO) HEMOGLOBIN [MASS/VOLU ME] IN BLOOD 12.1 g/dL 12.8 - 17 10/04 L Specimen Type: BLOOD No comment entered. Ordering Provider: PB WALDEN Report Released Date/Time: Oct 04, 2024 12:06 PM Reporting Lab: [facility] [place] [facility] [address] [facility] [address] Performing Lab: [facility] [place] [facility] [address] [facility] [address] [facility] [place] [facility] CBC AND DIFF (AUTO) HEMATOCRIT [VOLUME FRACTION] OF BLOOD BY AUTOMATED COUNT 36.2 39.2 - 50.4 10/04 L Specimen Type: BLOOD No comment entered. Ordering Provider: PB WALDEN Report Released Date/Time: Oct 04, 2024 12:06 PM Reporting Lab: [facility] [place] [facility] [address] [facility] [address] Performing Lab: [facility] [place] [facility] [address] [facility] [address] [facility] [place] [facility] CBC AND DIFF (AUTO) MCV [ENTITIC VOLUME] BY AUTOMATED COUNT 94.8 fL 82 - 99 10/04 Specimen Type: BLOOD No comment entered. Ordering Provider: PB WALDEN Report Released Date/Time: Oct 04, 2024 12:06 PM Reporting Lab: [facility] [place] [facility] [address] [facility] [address] Performing Lab: [facility] [place] [facility] [address] [facility] [address] [facility] [place] [facility] CBC AND DIFF (AUTO) MCHC [MASS/VOLU ME] BY AUTOMATED COUNT 33.4 g/dL 30.8 - 35.1 10/04 Specimen Type: BLOOD No comment entered. Ordering Provider: PB WALDEN Report Released Date/Time: Oct 04, 2024 12:06 PM Reporting Lab: [facility] [place] [facility] [address] [facility] [address] Performing Lab: [facility] [place] [facility] [address] [facility] [address] [facility] [place] [facility] CBC AND DIFF (AUTO) PLATELETS [#/VOLUME] IN BLOOD BY AUTOMATED COUNT 219 10*3/uL 140 - 360 10/04 Specimen Type: BLOOD No comment entered. Ordering Provider: PB WALDEN Report Released Date/Time: Oct 04, 2024 12:06 PM Reporting Lab: [facility] [place] [facility] [address] [facility] [address] Performing Lab: [facility] [place] [facility] [address] [facility] [address] [facility] [place] [facility] CBC AND DIFF (AUTO) ERYTHROCYT E DISTRIBUTI ON WIDTH [RATIO] BY AUTOMATED COUNT 13.2 12.0 - 16.0 10/04 Specimen Type: BLOOD No comment entered. Ordering Provider: PB WALDEN Report Released Date/Time: Oct 04, 2024 12:06 PM Reporting Lab: [facility] [place] [facility] [address] [facility] [address] Performing Lab: [facility] [place] [facility] [address] [facility] [address] [facility] [place] [facility] CBC AND DIFF (AUTO) MONOCYTES [#/VOLUME] IN BLOOD BY AUTOMATED COUNT 0.48 10*3/uL 0.30 - 1.10 10/04 Specimen Type: BLOOD No comment entered. Ordering Provider: PB WALDEN Report Released Date/Time: Oct 04, 2024 12:06 PM Reporting Lab: [facility] [facility] [address] [facility] [address] Performing Lab: [facility] [place] [facility] [address] [facility] [address] [facility] [place] [facility] CBC AND DIFF (AUTO) MCH [ENTITIC MASS] BY AUTOMATED COUNT 31.7 pg 26.2 - 32.6 10/04 Specimen Type: BLOOD No comment entered. Ordering Provider: PB WALDEN Report Released Date/Time: Oct 04, 2024 12:06 PM Reporting Lab: [facility] [facility] [address] [facility] [address] Performing Lab: [facility] [place] [facility] [address] [facility] [address] [facility] [place] [facility] CBC AND DIFF (AUTO) NEUTROPHIL S/100 LEUKOCYTES IN BLOOD BY AUTOMATED COUNT 61.8 43.7 - 75.8 10/04 Specimen Type: BLOOD No comment entered. Ordering Provider: PB WALDEN Report Released Date/Time: Oct 04, 2024 12:06 PM Reporting Lab: [facility] [place] [facility] [address] [facility] [address] Performing Lab: [facility] [place] [facility] [address] [facility] [address] [facility] [place] [facility] CBC AND DIFF (AUTO) LYMPHOCYTE S/100 LEUKOCYTES IN BLOOD BY AUTOMATED COUNT 25.7 14.0 - 42.3 10/04 Specimen Type: BLOOD No comment entered. Ordering Provider: PB WALDEN Report Released Date/Time: Oct 04, 2024 12:06 PM Reporting Lab: [facility] [place] [address] [address] Performing Lab: [facility] [place] [facility] [address] [facility] [address] [facility] [place] [facility] CBC AND DIFF (AUTO) MONOCYTES/ 100 LEUKOCYTES IN BLOOD BY AUTOMATED COUNT 7.5 5.1 - 13.7 10/04 Specimen Type: BLOOD No comment entered. Ordering Provider: PB WALDEN Report Released Date/Time: Oct 04, 2024 12:06 PM Reporting Lab: [facility] [place] [address] [address] Performing Lab: [facility] [place] [facility] [address] [facility] [address] [facility] [place] [facility] CBC AND DIFF (AUTO) EOSINOPHIL S/100 LEUKOCYTES IN BLOOD BY AUTOMATED COUNT 4.2 0.4 - 6.8 10/04 Specimen Type: BLOOD No comment entered. Ordering Provider: PB WALDEN Report Released Date/Time: Oct 04, 2024 12:06 PM Reporting Lab: [facility] [place] [address] [address] Performing Lab: [facility] [place] [facility] [address] [facility] [address] [facility] [place] [facility] CBC AND DIFF (AUTO) BASOPHILS/ 100 LEUKOCYTES IN BLOOD BY AUTOMATED COUNT 0.6 0.1 - 2.0 10/04 Specimen Type: BLOOD No comment entered. Ordering Provider: PB WALDEN Report Released Date/Time: Oct 04, 2024 12:06 PM Reporting Lab: [facility] [place] [facility] [address] [facility] [address] Performing Lab: [facility] [place] [facility] [address] [facility] [address] [facility] [place] [facility] CBC AND DIFF (AUTO) NEUTROPHIL S [#/VOLUME] IN BLOOD BY AUTOMATED COUNT 3.93 10*3/uL 2.20 - 7.60 10/04 Specimen Type: BLOOD No comment entered. Ordering Provider: PB WALDEN Report Released Date/Time: Oct 04, 2024 12:06 PM Reporting Lab: [facility] [place] [facility] [address] [facility] [address] Performing Lab: [facility] [place] [facility] [address] [facility] [address] [facility] [place] [facility] CBC AND DIFF (AUTO) LYMPHOCYTE S [#/VOLUME] IN BLOOD BY AUTOMATED COUNT 1.64 10*3/uL 1.00 - 3.20 10/04 Specimen Type: BLOOD No comment entered. Ordering Provider: PB WALDEN Report Released Date/Time: Oct 04, 2024 12:06 PM Reporting Lab: [facility] [place] [facility] [address] [facility] [address] Performing Lab: [facility] [place] [facility] [address] [facility] [address] [facility] [place] [facility] CBC AND DIFF (AUTO) EOSINOPHIL S [#/VOLUME] IN BLOOD BY AUTOMATED COUNT 0.27 10*3/uL 0.03 - 0.44 10/04 Specimen Type: BLOOD No comment entered. Ordering Provider: PB WALDEN Report Released Date/Time: Oct 04, 2024 12:06 PM Reporting Lab: [facility] [place] [facility] [address] [facility] [address] Performing Lab: [facility] [facility] [address] [facility] [address] [facility] [place] [facility] CBC AND DIFF (AUTO) BASOPHILS [#/VOLUME] IN BLOOD BY AUTOMATED COUNT 0.04 10*3/uL 0.01 - 0.13 10/04 Specimen Type: BLOOD No comment entered. Ordering Provider: PB WALDEN Report Released Date/Time: Oct 04, 2024 12:06 PM Reporting Lab: [facility] [place] [facility] [address] [facility] [address] Performing Lab: [facility] [place] [address] [address] [facility] [place] [facility] CBC AND DIFF (AUTO) IMMATURE GRANULOCYT ES/100 LEUKOCYTES IN BLOOD BY AUTOMATED COUNT 0.2 0.0 - 0.7 10/04 Specimen Type: BLOOD No comment entered. Ordering Provider: PB WALDEN Report Released Date/Time: Oct 04, 2024 12:06 PM Reporting Lab: [facility] [place] [address] [address] Performing Lab: [facility] [place] [facility] [address] [facility] [address] [facility] [place] [facility] CBC AND DIFF (AUTO) IMMATURE GRANULOCYT ES [#/VOLUME] IN BLOOD BY AUTOMATED COUNT 0.01 10*3/uL 0.00 - 0.06 10/04 Specimen Type: BLOOD No comment entered. Ordering Provider: PB WALDEN Report Released Date/Time: Oct 04, 2024 12:06 PM Reporting Lab: [facility] [place] [facility] [address] [facility] [address] Performing Lab: [facility] [place] [facility] [address] [facility] [address] [facility] [place] [facility] CBC AND DIFF (AUTO) NUCLEATED ERYTHROCYT ES/100 LEUKOCYTES [RATIO] IN BLOOD BY AUTOMATED COUNT 0.0 0.0 - 0.0 03/13 /2025 Specimen Type: BLOOD No comment entered. Ordering Provider: PB WALDEN Report Released Date/Time: Oct 04, 2024 12:06 PM Reporting Lab: [facility] [place] [facility] [address] [facility] [address] Performing Lab: [facility] [place] [facility] [address] [facility] [address] [facility] [place] [facility] CBC AND DIFF (AUTO) NUCLEATED ERYTHROCYT ES [#/VOLUME] IN BLOOD BY AUTOMATED COUNT 0.00 10*3/uL 0.00 - 0.00 10/04 Specimen Type: BLOOD No comment entered. Ordering Provider: PB WALDEN Report Released Date/Time: Oct 04, 2024 12:06 PM Reporting Lab: [facility] [place] [facility] [address] [facility] [address] Performing Lab: [facility] [place] [facility] [address] [facility] [address] [facility] [place] [facility] URINALYS IS CLEAN CATCH COLOR OF URINE Yellow 10/04 Specimen Type: URINE Comment: If Glucose = >500 and Ketones are positive, please alert the Physician. Ordering Provider: PB WALDEN Report Released Date/Time: Oct 04, 2024 12:06 PM Reporting Lab: [facility] [place] [facility] [address] [facility] [address] Performing Lab: [facility] [place] [facility] [address] [facility] [address] [facility] [place] [facility] URINALYS IS CLEAN CATCH APPEARANCE OF URINE Clear 10/04 Specimen Type: URINE Comment: If Glucose = >500 and Ketones are positive, please alert the Physician. Ordering Provider: PB WALDEN Report Released Date/Time: Oct 04, 2024 12:06 PM Reporting Lab: [facility] [place] [facility] [address] [facility] [address] Performing Lab: [facility] [place] [facility] [address] [facility] [address] [facility] [place] [facility] URINALYS IS CLEAN CATCH GLUCOSE [MASS/VOLU ME] IN URINE Normalmg /dL 10/04 Specimen Type: URINE Comment: If Glucose = >500 and Ketones are positive, please alert the Physician. Ordering Provider: PB WALDEN Report Released Date/Time: Oct 04, 2024 12:06 PM Reporting Lab: [facility]ITALRCEN[facility]MONTGOMERYTRN [facility]ITALUSER[facility] [address] [facility] [id number] Performing Lab: [facility] [place] [facility] [address] [facility] [id number] [facility] [place] [facility] URINALYS IS CLEAN CATCH KETONES [MASS/VOLU ME] IN URINE BY TEST STRIP NEGATIVE mg/dL 10/04 Specimen Type: URINE Comment: If Glucose = >500 and Ketones are positive, please alert the Physician. Ordering Provider: PB WALDEN Report Released Date/Time: Oct 04, 2024 12:06 PM Reporting Lab: [facility] [address] [facility] [phone] Performing Lab: [facility] [place] [facility] [address] [facility] [id number] [facility]ITALRHARTSEL[facility]ENTERN [facility] URINALYS IS CLEAN CATCH ERYTHROCYT ES [PRESENCE] IN URINE SEDIMENT BY LIGHT MICROSCOPY SMALLmg/ dL 10/04 Specimen Type: URINE Comment: If Glucose = >500 and Ketones are positive, please alert the Physician. Ordering Provider: PB WALDEN Report Released Date/Time: Oct 04, 2024 12:06 PM Reporting Lab: [facility] [place] [facility] [address] [facility] [address] Performing Lab: [facility] [place] [facility] [address] [facility] [address] [facility] [place] [facility] URINALYS IS CLEAN CATCH PROTEIN [MASS/VOLU ME] IN URINE BY TEST STRIP NEGATIVE mg/dL 10/04 Specimen Type: URINE Comment: If Glucose = >500 and Ketones are positive, please alert the Physician. Ordering Provider: PB WALDEN Report Released Date/Time: Oct 04, 2024 12:06 PM Reporting Lab: [facility] [place] [facility] [address] [facility] [id number] Performing Lab: [facility] [place] [facility] [address] [facility] [address] [facility] URINALYS IS CLEAN CATCH NITRITE [PRESENCE] IN URINE NEGATIVE mg/dL 10/04 Specimen Type: URINE Comment: If Glucose = >500 and Ketones are positive, please alert the Physician. Ordering Provider: PB WALDEN Report Released Date/Time: Oct 04, 2024 12:06 PM Reporting Lab: [facility] [address] [facility] [address] Performing Lab: [facility] [address] [facility] [address] [facility] URINALYS IS CLEAN CATCH BILIRUBIN. TOTAL [PRESENCE] IN URINE NEGATIVE mg/dL 10/04 Specimen Type: URINE Comment: If Glucose = >500 and Ketones are positive, please alert the Physician. Ordering Provider: PB WALDEN Report Released Date/Time: Oct 04, 2024 12:06 PM Reporting Lab: [facility] [address] [facility] [address] Performing Lab: [facility] [address] [facility] [address] [facility] URINALYS IS CLEAN CATCH SPECIFIC GRAVITY OF URINE BY REFRACTOME TRY 1.017 1.016 - 1.022 10/04 Specimen Type: URINE Comment: If Glucose = >500 and Ketones are positive, please alert the Physician. Ordering Provider: PB WALDEN Report Released Date/Time: Oct 04, 2024 12:06 PM Reporting Lab: [facility] [address] [facility] [address] Performing Lab: [facility] [address] [facility] [address] [facility] URINALYS IS CLEAN CATCH PH OF URINE BY TEST STRIP 5.5 5.0 - 9.0 10/04 Specimen Type: URINE Comment: If Glucose = >500 and Ketones are positive, please alert the Physician. Ordering Provider: PB WALDEN Report Released Date/Time: Oct 04, 2024 12:06 PM Reporting Lab: [facility] [place] [facility] [address] [facility] [address] Performing Lab: [facility] TRN [facility]ITALUSETS [address] [address] [facility] [place] [facility] URINALYS IS CLEAN CATCH UROBILINOG EN [MASS/VOLU ME] IN URINE BY TEST STRIP Normalmg /dL <2.0 - 2.0 10/04 Specimen Type: URINE Comment: If Glucose = >500 and Ketones are positive, please alert the Physician. Ordering Provider: PB WALDEN Report Released Date/Time: Oct 04, 2024 12:06 PM Reporting Lab: [facility]ERYTRN [facility]PITALUSE[address] [address] Performing Lab: [facility]RL TRN [facility]ITALUSETS [facility] [address] [facility] [address] [facility]SEL[facility]ERN [facility]OSPITALUSE [facility] URINALYS IS CLEAN CATCH LEUKOCYTE ESTERASE [PRESENCE] IN URINE BY TEST STRIP NEGATIVE 10/04 Specimen Type: URINE Comment: If Glucose = >500 and Ketones are positive, please alert the Physician. Ordering Provider: PB WALDEN Report Released Date/Time: Oct 04, 2024 12:06 PM Reporting Lab: [facility]N [facility]ITALUSETS [address] [address] Performing Lab: [facility]ITALRL TRN [facility]ITALUSETS [facility] [address] [facility] [address] [facility]RHARTSELLE [facility]ENTERN [place] [facility] LIPID PANEL FASTING CHOLESTERO L [MASS/VOLU ME] IN SERUM OR PLASMA 120 mg/dL 04/19 Specimen Type: SERUM No comment entered. Ordering Provider: PB WALDEN Report Released Date/Time: Apr 14, 2024 05:40 PM Reporting Lab: [facility]ERYTRN [facility]ITALUSE[address] [address] Performing Lab: [facility]ITALRL [facility] [place] [facility] [address] [facility] [address] [facility] LIPID PANEL FASTING TRIGLYCERI DE [MASS/VOLU ME] IN SERUM OR PLASMA 98 mg/dL 0 - 150 04/19 Specimen Type: SERUM No comment entered. Ordering Provider: PB WALDEN Report Released Date/Time: Apr 14, 2024 05:40 PM Reporting Lab: [facility] [place] [facility] [address] [facility] [address] Performing Lab: [facility] [place] [facility] [address] [facility] [address] [facility] [facility] LIPID PANEL FASTING CHOLESTERO L IN LDL [MASS/VOLU ME] IN SERUM OR PLASMA BY CALCULATIO N 63 mg/dL 0 - 129 04/19 Specimen Type: SERUM No comment entered. Ordering Provider: PB WALDEN Report Released Date/Time: Apr 14, 2024 05:40 PM Reporting Lab: [facility] [place] [facility] [address] [facility] [address] Performing Lab: [facility] [place] [facility] [address] [facility] [address] [facility] LIPID PANEL FASTING CHOLESTERO L.TOTAL/CH OLESTEROL IN HDL [MASS RATIO] IN SERUM OR PLASMA 3.2 04/19 Specimen Type: SERUM No comment entered. Ordering Provider: PB WALDEN Report Released Date/Time: Apr 14, 2024 05:40 PM Reporting Lab: [facility] [place] [facility] [address] [facility] [address] Performing Lab: [facility] [place] [facility] [address] [facility] [address] [facility] LIPID PANEL FASTING CHOLESTERO L IN HDL [MASS/VOLU ME] IN SERUM OR PLASMA 37 mg/dL 40 - 60 04/19 L Specimen Type: SERUM No comment entered. Ordering Provider: PB WALDEN Report Released Date/Time: Apr 14, 2024 05:40 PM Reporting Lab: [facility] [place] [facility] [address] [facility] [address] Performing Lab: [facility] [address] [facility] [address] [facility] Vital Signs Combined list of inpatient and [...] [place] [facility] SYSTOLIC BLOOD PRESSURE 148 03/06/20 24 13:28:52 [facility] DIASTOLIC [...] Source [facility] OFF/OP EST NOVEMBER X REQ PHY/QHP [id number] Diagnos is: ICD-10- CM Z23 Encount er for immuniz JEAN Mcginnis RD 05/25 [facility] OFFICE O/P EST LOW 20-29 MIN [id number] Diagnos is: ICD-10- CM R73.01 Impaire d fasting glucose Rene OLVERA 06/01 [facility] Outpatient Encounter [id number] 06/02 [facility] Outpatient Encounter [id number] 06/15 [facility] NURSING ASSESSMENT /EVALUATN [id number] Diagnos is: ICD-10- CM H54.50 Low vision, one eye, unspeci fied eye Malini COLLINS 06/15 [facility] OFFICE O/P EST LOW 20-29 MIN [id number] Diagnos is: ICD-10- CM 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, left eye FRIDA,XIMENA MARQUES E 06/15 [facility] CPTR OPHTH DX IMG POST SEGMT [id number] Diagnos is: ICD-10- CM 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, left eye FRIDA,XIMENA MARQUES E 06/15 [facility] EYE EXAM WITH PHOTOS [id number] Diagnos is: ICD-10- CM 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, left eye FRIDA,XIMENA MARQUES E 06/15 [facility] Outpatient Encounter [id number] 06/15 [facility] Outpatient Encounter [id number] 06/15 [facility] Out[facility] Encounter [id number] 06/15 [facility] Out[facility] Encounter [id number] 06/17 [facility] Out[facility] Encounter [id number] 06/17 [facility] Encounter [id number] 06/20 [facility] Encounter [id number] 06/21 [facility] Out[facility] Encounter [id number] 06/21 [facility] Out[facility] Encounter [id number] 06/24 [facility] OFFICE O/P EST LOW 20-29 MIN [id number] Diagnos is: ICD-10- CM I63.9 Cerebra l infarct ion, unspeci fiJEAN Horta RD 06/24 [facility] Encounter [id number] 06/28 [facility] Out[facility] Encounter [id number] 06/30 [facility] Out[facility] Encounter [id number] 06/30 [facility] Out[facility] Encounter [id number] 06/30 [facility] UNLISTED SPEC DERM SVC/PX [id number] Diagnos is: ICD-10- CM Z13.89 Encount er for screeni ng for other disorde r OVI STEWART ICA A 07/01 [facility] Out[facility] Encounter [id number] 07/01 [facility] Outpatient Encounter [id number] Diagnos is: ICD-10- CM 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 HALEY DOWELL 07/01 [facility] Out[facility] Encounter [id number] 07/01 [facility] Out[facility] Encounter [id number] 07/01 [facility] VISUAL FIELD EXAMINATIO N(S) [id number] Diagnos is: ICD-10- CM 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, left eye KAYLEIGH REYES 07/11 [facility] OCULAR INSTRUMNT SCREEN SADIE [id number] Diagnos is: ICD-10- CM 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, left eye KAYLEIGH REYES 07/11 [facility] FIT SPECTACLES MULTIFOCAL [id number] Diagnos is: ICD-10- CM Z46.0 Encount er for fit/adj st of spectac les and contact lenses KAYLEIGH REYES 07/11 [facility] Out[facility] Encounter [id number] 07/21 [facility] Out[facility] Encounter [id number] 07/22 [facility] Out[facility] Encounter [id number] 07/22 [facility] Out[facility] Encounter [id number] 07/22 [facility] Out[facility] Encounter [id number] 07/30 [facility] OFF/OP EST NOVEMBER X REQ PHY/QHP [id number] Diagnos is: ICD-10- CM R73.01 Impaire d fasting glucose MARCO ANTONIO CORRALES 08/02 [facility] Out[facility] Encounter [id number] 08/03 [facility] Out[facility] Encounter [id number] 08/06 [facility] Out[facility] Encounter [id number] 08/16 [facility] Out[facility] Encounter [id number] 08/18 [facility] Out[facility] Encounter [id number] 08/18 [facility] Out[facility] Encounter [id number] 08/18 [facility] OFFICE O/P EST LOW 20 MIN [id number] Diagnos is: ICD-10- CM M25.512 Pain in left shoulde r JEAN WALDEN RD D 09/21 [facility] Out[facility] Encounter [id number] 09/22 [facility] INTRM OPH EXAM EST PATIENT [id number] Diagnos is: ICD-10- CM 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, left eye KAYLEIGH REYES 09/26 [facility] FUNDUS PHOTOGRAPH Y W/I&R [id number] Diagnos is: ICD-10- CM 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 Diagnos is: ICD-10- CM M54.2 Cervica harjit TAVARESRINCONSamuel PORTER 09/28 [facility] OFF/OP EST NOVEMBER X REQ PHY/QHP [id number] Diagnos is: ICD-10- CM R73.01 Impaire d fasting glucose ANTONILISSETTEMARCO ANTONIOCALLIE ROD 09/28 [facility] MANUAL THERAPY 1/ REGIONS [id number] Diagnos is: ICD-10- CM M54.2 Cervica harjit TAVARESRINCONSamuel PORTER 09/29 [facility] Out[facility] Encounter [id number] 10/07 [facility] THERAPEUTI C EXERCISES [id number] Diagnos is: ICD-10- CM M25.512 Pain in left shoulde r MACHON,BRAULIO LIE E 10/10 [facility] Outpatient Encounter [id number] 10/11 [facility] MANUAL THERAPY 1/> REGIONS [id number] Diagnos is: ICD-10- CM M54.2 Cervica SERGEY Bridges RA 10/11 [facility] Out[facility] Encounter [id number] 10/12 [facility] MANUAL THERAPY 1/> REGIONS [id number] Diagnos is: ICD-10- CM M25.512 Pain in left shoulde r Greta ELY 10/17 [facility] OFFICE O/P EST LOW 20 MIN [id number] Diagnos is: ICD-10- CM 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, unspeci JEAN Nj RD D 10/18 [facility] FIT SPECTACLES MULTIFOCAL [id number] [id number] Diagnos is: ICD-10- CM Z46.0 Encount er for fit/adj st of spectac les and contact lenses Johnna MOSELEY J 10/18 [facility] MANUAL THERAPY 1/> REGIONS [id number] Diagnos is: ICD-10- CM M54.2 Cervica SERGEY Bridges RA 10/20 [facility] THERAPEUTI C EXERCISES [id number] Diagnos is: ICD-10- CM M25.512 Pain in left shoulde r JENNIFER BLANCO 10/25 [facility] MANUAL THERAPY 1/> REGIONS [id number] Diagnos is: ICD-10- CM M54.2 Georgeica SERGEY Bridges RA 10/27 [facility] THERAPEUTI C EXERCISES [id number] Diagnos is: ICD-10- CM M25.512 Pain in left shoulde r BRAULIO JEFFERSON LIE E 11/02 [facility] MANUAL THERAPY 1/> REGIONS [id number] Diagnos is: ICD-10- CM M54.2 Georgeica SERGEY Bridges RA 11/06 [facility] THERAPEUTI C EXERCISES [id number] Diagnos is: ICD-10- CM M25.512 Pain in left shoulde r BRAULIO JEFFERSON LIE E 11/09 [facility] RPR&REFITG SPECT XCP APHAKIA [id number] [id number] Diagnos is: ICD-10- CM Z46.0 Encount er for fit/adj st of spectac les and contact lenses Johnna MOSELEY BONITA J 11/10 [facility] MANUAL THERAPY 1/> REGIONS [id number] [id number] Diagnos is: ICD-10- CM M54.2 Georgeica SERGEY Bridges RA 11/10 [facility] THERAPEUTI C EXERCISES [id number] Diagnos is: ICD-10- CM M25.512 Pain in left shoulde r RONNYBRAULIO LIE E 11/23 [facility] OFF/OP EST MAY X REQ PHY/QHP [id number] [id number] Diagnos is: ICD-10- CM I73.9 Periphe ral vascula r disease , unspeci MARCO ANTONIO Perez VIOLA 11/27 [facility] MANUAL THERAPY 1/> REGIONS [id number] [id number] Diagnos is: ICD-10- CM M54.2 Cervica lgchristianne TAVARESRINCON RA 12/07 [facility] Out[facility] Encounter [id number] 01/01 [facility] Outpatient Encounter [id number]/04 [facility] OFFICE O/P EST LOW 20 MIN [id number] Diagnos is: ICD-10- CM L71.8 Other rosacea ERICKAYLEIGH 01/11 [facility] RPR&REFITG SPECT XCP APHAKIA [id number] [id number] Diagnos is: ICD-10- CM Z46.0 Encount er for fit/adj st of spectac les and contact lenses PRADIP,A BONITA J 01/11 [facility] Out[facility] Encounter [id number] 01/18 [facility] Out[facility] Encounter [id number] 01/29 [facility] OFFICE O/P EST SF 10 MIN [id number] Diagnos is: ICD-10- CM M54.2 Cervica SERGEY Bridges RA 01/29 [facility] Out[facility] Encounter [id number] 01/29 [facility] OFF/OP EST NOVEMBER X REQ PHY/QHP [id number] [id number] Diagnos is: ICD-10- CM I73.9 Periphe ral vascula r disease , unspeci MARCO ANTONIO Perez VIOLA 02/05 [facility] Out[facility] Encounter [id number] 02/06 [facility] MANUAL THERAPY 1/> REGIONS [id number] Diagnos is: ICD-10- CM M54.2 Cervica SERGEY Bridges RA 02/22 [facility] HEARING AID REPAIR/MOD IFYING [id number] 1. Diagnos is: ICD-10- CM Z46.1 Encount er for fitting and adjustm ent of hearing aid SOHAN APONTE 02/23 [facility] MANUAL THERAPY 1/> REGIONS [id number] 1. Diagnos is: ICD-10- CM M77.11 Lateral epicond ylitis, right elbow MACHON,BRAULIO LIE E 03/06 [facility] NURSING ASSESSMENT /EVALUATN 24918-6.63 1. Diagnos is: ICD-10- CM M25.519 Pain in unspeci fied shoulde susan COLLINSMalini LEONARDPaul M 03/06 [facility] OFFICE O/P EST LOW 20 MIN 74207-0.63 1. Diagnos is: ICD-10- CM M54.2 Cervica harjit MOOREOTTO MezaPaul ROSEMAXIMO 03/06 [facility] Outpatient Encounter [id number] D 03/07 [facility] MANUAL THERAPY 1/> REGIONS [id number] Diagnos is: ICD-10- CM M54.2 Cervica HOMER BridgesU RA 03/09 [facility] PRINCESS MDLTY 1+ULTRASOU ND EA 15 [id number] Diagnos is: ICD-10- CM M77.11 Lateral epicond ylitis, right elbow MACHON,BRAULIO LIE E 03/13 [facility] HEARING AID FITTING/CH ECKING [id number] Diagnos is: ICD-10- CM Z46.1 Encount er for fitting and adjustm ent of hearing aid HOMER JORDAN L 03/14 [facility] MANUAL THERAPY 1/> REGIONS [id number] Diagnos is: ICD-10- CM M54.2 Georgeica harijt TAVARESRINCON RA 03/16 [facility] MANUAL THERAPY 1/> REGIONS [id number] Diagnos is: ICD-10- CM M54.2 SERGEY Patel RA 03/20 [facility] Outpatient Encounter [id number] 03/20 [facility] MANUAL THERAPY 1/> REGIONS [id number] [id number] Diagnos is: ICD-10- CM M54.2 Cervica SERGEY Bridges RA 03/23 [facility] OFF/OP EST MAY X REQ PHY/QHP [id number] Diagnos is: ICD-10- CM I73.9 Periphe ral vascula r disease , unspeci MARCO ANTONIO Perez 03/29 [facility] Outpatient Encounter [id number] 03/29 [facility] MANUAL THERAPY 1/> REGIONS [id number] Diagnos is: ICD-10- CM M54.2 SERGEY Patel RA 03/30 [facility] OFFICE O/P EST MOD 30 MIN [id number] Diagnos is: ICD-10- CM L71.8 Other rosacea KAYLEIGH REYES GAMALIEL 04/03 [facility] FUNDUS PHOTOGRAPH Y W/I&R [id number] Diagnos is: ICD-10- CM 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 Diagnos is: ICD-10- CM M25.512 Pain in left shoulde r RONNYBRAULIO LIE E 04/06 [facility] MANUAL THERAPY 1/> REGIONS 23853-4.63 1. Diagnos is: ICD-10- CM M54.2 Cervica SERGEY Bridges RA 04/11 [facility] THERAPEUTI C EXERCISES [id number] Diagnos is: ICD-10- CM M25.512 Pain in left shoulde r RONNYBRAULIO LIE E 04/16 [facility] Outpatient Encounter [id number]/19 [facility] [facility] OFFICE O/P EST LOW 20 MIN [id number] Diagnos is: ICD-10- CM I25.10 Athscl heart disease of [place]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 w/o ang pctJEAN Jalloh RD 04/23 [facility] THERAPEUTI C EXERCISES [id number] Diagnos is: ICD-10- CM M25.512 Pain in left shoulde BRAULIO Paez LIE E 04/24 [facility] Out[facility] Encounter [id number] 04/27 [facility] Encounter [id number] 04/27 [facility] THERAPEUTI C EXERCISES [id number] Diagnos is: ICD-10- CM M25.512 Pain in left shoulde BRAULIO Paez LIE E 05/01 [facility] THERAPEUTI C EXERCISES [id number] Diagnos is: ICD-10- CM M25.512 Pain in left shoulde BRAULIO Paez LIE E 05/16 [facility] HEARING AID REPAIR/MOD IFYING [id number] Diagnos is: ICD-10- CM Z46.1 Encount er for fitting and adjustm ent of hearing aid AURELIA NAVARRETE 05/16 [facility] THERAPEUTI C EXERCISES [id number] Diagnos is: ICD-10- CM M25.512 Pain in left shoulde BRAULIO Paez LIE E 05/21 [facility] THERAPEUTI C EXERCISES [id number] Diagnos is: ICD-10- CM M25.512 Pain in left shoulde BRAULIO Paez LIE E 05/29 [facility] THERAPEUTI C EXERCISES [id number] Diagnos is: ICD-10- CM M25.512 Pain in left shoulde r RONNYBRAULIO LIE E 06/05 [facility] PARNG/CUTG B9 HYPRKR LES 2-4 [id number] Diagnos is: ICD-10- CM I73.9 Periphe ral vascula r disease , unspeci MARCO ANTONIO Perez VIOLA 06/07 [facility] THERAPEUTI C EXERCISES [id number] 1. Diagnos is: ICD-10- CM M25.512 Pain in left shoulde r RONNYBRAULIO LIE E 06/12 [facility] Outpatient Encounter [id number] 1.06/14 [facility] QNHP OL DIG ASSMT&MGMT 5-10 [id number] 1. Diagnos is: ICD-10- CM Z12.2 Encntr screen for maligna nt neoplas m of respira tory organs PUCHALSKI, VALERI L 06/14 [facility] Outpatient Encounter [id number] 1.06/14 [facility] OFFICE O/P EST SF 10 MIN [id number] 1. Diagnos is: ICD-10- CM M54.2 Cervica SERGEY Bridges RA 06/15 [facility] THERAPEUTI C EXERCISES [id number] Diagnos is: ICD-10- CM M25.512 Pain in left shoulde BRAULIO Paez LIE E 06/26 [facility] MANUAL THERAPY 1/> REGIONS [id number] Diagnos is: ICD-10- CM M54.2 Cervica SERGEY Bridges RA 06/26 [facility] THERAPEUTI C EXERCISES [id number] 1. Diagnos is: ICD-10- CM M25.512 Pain in left shoulde r BRAULIO JEFFERSON LIE E 07/03 [facility] Encounter [id number] 1.07/06 [facility] THERAPEUTI C EXERCISES [id number] Diagnos is: ICD-10- CM M25.512 Pain in left shoulde BRAULIO Paez LIE E 07/10 [facility] Encounter [id number] 07/12 [facility] MANUAL THERAPY 1/> REGIONS [id number] Diagnos is: ICD-10- CM M54.2 Cervica SERGEY Bridges RA 07/12 [facility] Out[facility] Encounter [id number] 07/24 [facility] THERAPEUTI C EXERCISES [id number] Diagnos is: ICD-10- CM M25.512 Pain in left shoulde r BRAULIO JEFFERSON LIE E 07/24 [facility] En[facility] [id number] 08/07 [facility] Encounter [id number] 08/09 [facility] THERAPEUTI C EXERCISES [id number] Diagnos is: ICD-10- CM M25.512 Pain in left shoulde r BRAULIO JEFFERSON LIE E 08/10 [facility] Out[facility] Encounter [id number] 08/13 [facility] OFF/OP EST NOVEMBER X REQ PHY/QHP [id number] Diagnos is: ICD-10- CM I73.9 Periphe ral vascula r disease , unspeci MARCO ANTONIO Perez 08/14 [facility] THERAPEUTI C EXERCISES [id number] Diagnos is: ICD-10- CM M25.512 Pain in left shoulde r BRAULIO JEFFERSON LIE E 08/28 [facility] THERAPEUTI C EXERCISES [id number] Diagnos is: ICD-10- CM M25.512 Pain in left shoulde r BRAULIO JEFFERSON LIE E 09/12 [facility] En[facility] [id number] 09/13 [facility] En[facility] [id number] 09/29 [facility] TRIM NAIL(S) [id number] Diagnos is: ICD-10- CM I73.9 Periphe ral vascula r disease , unspeci fied MARCO ANTONIO CORRALES VIOLA 10/04 [facility] En[facility] [id number] 10/12 [facility] Out[facility] Encounter [id number] 10/16 [facility] OFFICE O/P EST LOW 20 MIN [id number] Diagnos is: ICD-10- CM I10 Essenti al (primar y) hyperte nsion JEAN WALDEN RD D 10/16 [facility] Encounter [id number] [facility] Encounter [id number] 11/11 [facility] Encounter [id number] [facility] Encounter [id number] [facility] Out[facility] Encounter [id number] [facility] [place] Outpatient Encounter [id number] 11/15 [facility] [place] Outpatient Encounter [id number] 11/16 [facility] [place] [facility] Social History Combined list of available smoking, tobacco, and other social history from Department of Defense and Veterans Affairs facilities. Social History Type Response Date Comment Source Tobacco smoking status [facility]-TOBACCO QUIT 5 TO < 15 YRS 04/23/2024 [facility] History of tobacco use ME-TOBACCO FORMER USER 04/23/2024 [facility] History of tobacco use ME-TOBACCO FORMER USER 04/14/2022 [facility]10[facility]2021 [facility] History of tobacco use ME-TOBACCO FORMER USER 04/02/2020 [facility] [place] [facility] History of tobacco use ME-TOBACCO QUIT 15 YRS OR MORE 09/29/2018 [facility] History of tobacco use QUIT TOBACCO USE 1-7 YEARS AGO 12/21/2017 5 or 6 years ago [facility] History [facility] tobacco use QUIT TOBACCO USE 1-7 YEARS AGO 05/19/2017 [facility] History of tobacco use QUIT TOBACCO USE 1-7 YEARS AGO 08/19/2016 [facility] History of tobacco use QUIT TOBACCO USE 1-7 YEARS AGO 02/12/2016 [facility] History of tobacco use QUIT TOBACCO USE 1-7 YEARS AGO 08/08/2015 [facility] History of tobacco use NEVER USED TOBACCO [...] History of tobacco use CURRENT SMOKER 08/23/2006 [facility] History of tobacco use TOBACCO COUNSELING 3 07/28/2005 [facility] [place] of tobacco use TOBACCO COUNSELING 2 04/15/2005 [facility] History of tobacco use TOBACCO COUNSELING 1 03/25/2005 [facility] History [place] tobacco use TOBACCO COUNSELING 2 08/14/2004 [facility] History of tobacco use TOBACCO COUNSELING 1 04/03/2004 [facility] History of tobacco use TOBACCO COUNSELING 3 11/12/2003 [facility] History of tobacco use TOBACCO COUNSELING 2 09/12/2003 [facility] History of tobacco use TOBACCO CESSATION: <1 YEAR 06/24/2003 STATES HE QUIT SMOKING 05/26 [facility] Plan of Care List of future care activities from Department [facility] facilities. Additional future care activities may be listed in the Assessment and Plan section. Date/Time Care Activity Care Activity Detail Facili ty 11/20/2024 AMBULATORY - MEDICINE AMBULATORY - MEDICI [facility] [place] [facility] Advance Directives List of completed, amended, or rescinded Advance Directives on record at Department of [facility] facilities. An actual copy of the Directive is not included. Date Advance Directive Provider Source 06/20/2012 ADVANCE DIRECTIVE DISCUSSION MONIKA IZAGUIRRE [facility]
--- OUTSIDE RECORDS SUMMARY | 2024-11-20 16:12 | XMS_ITS | Encounter Summary ---
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 Name Role Phone LETICIA [facility] Primary [...] PART B Apr 24, 2013 PART B [id number] KLE[place] DYE RY PATIENT MEDICARE (WNR) MEDICARE () PART B Apr 24, 2013 PART B [id number] [facility] KELBER DYE RY PATIENT MEDICARE (WNR) MEDICARE (M) PART B Apr 24, 2013 PART B [id number] [place] DYE RY PATIENT MEDICARE (WNR) MEDICARE () PART A November 23, 2011 PART A [id number] [place] RY PATIENT MEDICARE (WNR) MEDICARE () PART A November 23, 2011 PART A [id number] [id number] KLEBER DYE RY PATIENT MEDICARE (WNR) MEDICARE () PART A November 23, 2011 PART A [id number] KLEBER DYE PATIENT [employer] PLAN G PLAN G Apr 24, 2013 PLAN G [id number] KLEBER DYE PATIENT [employer] PLAN G PLANG Apr 24, 2013 PLANG [id number] KLEBER DYE PATIENT [employer] PL[employer] G Apr 24, 2013 PLANG [id number] KLEBER DYE PATIENT Selected Encounter This section includes the information on record at [place] for the Encounter. Date/Time Encounter Type Encounter Description Reason Pro vider Source Nov 16, 2024 09:48 AM Outpatient Encounter ADMIN PAT ACTIVTIES (MASNONCT) IHE Encounter Template Text not used by [place] Plan of Treatment: Future Appointments (+ 6 months) and Future Tests (+/- 45 days) The Plan of Treatment section includes future care activities for the patient from all [place] [facility] This section includes future appointments and future orders which are active, pending or scheduled. Future Appointments This section includes appointments that were scheduled to occur 6 months from the date of the Encounter, up to a maximum of 20 appointments. The data comes from all [place] treatment facilities. Appointment Date/Time Appointment Type Appointme nt Facility Name Nov 20, 2024 02:15 PM AMBULATORY - MEDICINE [facility] [place] [facility] Nov 21, 2024 11:30 AM AMBULATORY - MEDICINE [facility] [place] [facility] December 12, 2024 11:30 AM AMBULATORY - MEDICINE [facility] [facility] Dec 25, 2024 01:00 PM AMBULATORY MEDICINE [facility] [place] [facility] Jan 01, 2025 09:00 AM AMBULATORY MEDICINE [facility] Active, Pending, and Scheduled Orders This section includes a listing of several types of active, pending, and scheduled orders, including clinic medications orders, diagnostic test orders, procedure orders and consult orders; where the start date of the order is 45 days before the date of the Encounter or 45 days after the date of theEncounter. The data comes from all [facility]. Test Date/Time Test Type Test Details Facility Name Nov 12, 2024 02:06 PM Consult Order COMMUNITY CARE-OPHTHALMOLOGY Cons [facility] [place] [facility] Nov 16, 2024 10:03 AM Consult Order COMMUNITY CARE-VASCULAR SURGERY Cons [facility] [place] [facility] Social History: Smoking Status (Most current) and Tobacco Use (All prior to encounter date) This section includes the most current, and the historical, smoking and tobacco- related health factors from the [place] facility where the Encounter took place. Current Smoking Status This section includes the most current smoking, or tobacco-related health factor, from the [place] facility where the Encounter took place. Date/Time Current Smoking Status Comment Facil it Apr 23, 2024 10:00 AM VA-TOBACCO QUIT 5 TO < 15 YRS [place] [facility] [place] [facility] Tobacco Use History This section includes a history of the smoking, or tobacco-related health factors, that were collected on or before the date of the Encounter. The data comes from the [place] facility where the Encounter took place. Date/Time Smoking Status/Tobac co Use Comment [facility] Apr 23, 2024 10:00 AM VA-TOBACCO QUIT 5 TO < 15 YRS [facility] [place] [facility] Apr 13, 2023 11:00 AM VA-TOBACCO FORMER USER [facility] [place] [facility] Apr 13, 2023 11:00 AM VA-TOBACCO QUIT 5 TO < 15 YRS [facility] [place] [facility] Apr 14, 2022 01:30 PM VA-TOBACCO FORMER USER [facility] [place] [facility] Apr 14, 2022 01:30 PM VA-TOBACCO QUIT 5 TO < 15 YRS [facility] [place] [facility] Apr 10, 2021 10:00 AM VA-TOBACCO FORMER USER [facility] [place] [facility] Apr 10, 2021 10:00 AM VA-TOBACCO QUIT 5 TO < 15 YRS [facility] [place] [facility] Apr 02, 2020 10:30 AM VA-TOBACCO FORMER USER [facility] [place] [facility] Apr 02, 2020 10:30 AM VA-TOBACCO QUIT 5 TO < 15 YRS [facility] [place] [facility] Sep 29, 2018 08:52 AM VA-TOBACCO FORMER USER [facility] [place] [facility] Sep 29, 2018 08:52 AM VA-TOBACCO QUIT 15 YRS OR MORE [facility] [place] [facility] December 21, 2017 12:27 PM QUIT TOBACCO USE 1-7 YEARS AGO 5 or 6 years ago [facility] [place] [facility] May 19, 2017 10:21 AM QUIT TOBACCO USE 1-7 YEARS AGO [facility] [place] [facility] Aug 19, 2016 09:56 AM QUIT TOBACCO USE 1-7 YEARS AGO [facility] [place] [facility] Feb 12, 2016 11:34 AM QUIT TOBACCO USE 1-7 YEARS AGO [facility] [place] [facility] Aug 08, 2015 03:04 PM QUIT TOBACCO USE 1-7 YEARS AGO [facility] [place] [facility] Aug 08, 2015 03:04 PM QUIT TOBACCO USE IN PAST YEAR pt states he stooped smmoking in the past yr[facility] Advance Directives: All historical and current Section Date Range: From patient's date of to the date document was created. This section includes ALL of a patient's completed or amended [place] Advance and Rescinded Directives. The entries below indicate that a directive exists for the patient, but an actual copy is not included with this document. The data comes from all [place] facilities. Date Advance Directives Provider Source Jun 20, 2012 ADVANCE DIRECTIVE DISCUSSION MONIKA IZAGUIRRE [facility] Encounter Notes: All associated encounter notes This section contains the clinical notes associated to the Encounter. Date/Time Encounter Note(s) Provider Source Nov 16, 2024 09:48 AM ADMINISTRATIVE NOT E: LOCAL TITLE: CCC: SCHEDULING ADMINISTRATION STANDARD TITLE: ADMINISTRATIVE NOTE DATE OF NOTE: NOV 16, 2024@09:48:35 ENTRY DATE: NOV 16, 2024@09:48:36 AUTHOR: RENÉ FOX COSIGNER: URGENCY: STATUS: COMPLETED CCC: SCHEDULING ADMINISTRATION Has ADDENDA Caller Verification Call Back Number: Emergency Contact: JOMAR SMITHFIELD Emergency Contact Caller/Recipient Relation to Patient: Self Caller Name: SANCHO DYE Administrative Administrative Note Reason: Other Administrative Note Comments: requests to speak to his RN in regard to questions about some of his appts. Phone# verified. IMPORTANT: This note was created by [facility] staff. Please do not alert the staff member by adding them as a signer for future communications. Alerts are not monitored by this user. /glenis/ RENÉ FOX ADVANCED CLARIFIER Signed: 11/16/2024 09:48 Receipt Acknowledged By: 11/16/2024 10:16 /glenis/ Merly Matthews RN, BSN Primary Care 11/16/2024 11:36 /es/ OSMANY PALOMINO LPN LPN 11/16/2024 ADDENDUM STATUS: COMPLETED spoke with , answered questions /glenis/ Merly Matthews RN, BSN Primary Care Signed: 11/16/2024 10:16 RENÉ FOX [place] [facility]
--- OUTSIDE RECORDS SUMMARY | 2024-11-20 16:12 | XMS_ITS ---
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 Name Role Phone AARON WALDEN Primary [...] PART B Apr 24, 2013 PART B [id number] KLE[place] DYE RY PATIENT MEDICARE (WNR) MEDICARE () PART B Apr 24, 2013 PART B [id number] [facility] KLEBER DYE RY PATIENT MEDICARE (WNR) MEDICARE () PART B Apr 24, 2013 PART B [id number] K[place] DYE RY PATIENT MEDICARE (WNR) MEDICARE () PART A November 23, 2011 PART A [id number] KLE[place] DYE RY PATIENT MEDICARE (WNR) MEDICARE () PART A November 23, 2011 PART A [id number] KLEBER DYE RY PATIENT MEDICARE (WNR) MEDICARE () PART A November 23, 2011 PART A [id number] KLEBER DYE PATIENT [employer] PLAN G PLAN G Apr 24, 2013 PLAN G [id number] KLEBER DYE PATIENT [employer] PL[employer] G PLANG Apr 24, 2013 PLANG [id number] KLEBER DYE PATIENT [employer] PL[employer] G Apr 24, 2013 PLANG [id number] KLEBER DYE PATIENT Selected Encounter This section includes the information on record at [place] for the Encounter. 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 Plan of Treatment: Future Appointments (+ [...] Appointment Type Appointme nt Facility Name Apr 24, 2024 10:00 AM AMBULATORY - REHAB MEDICIN E [facility] [place] [facility] Apr 27, 2024 10:15 AM AMBULATORY - MEDICINE [facility] [place] [facility] May 01, 2024 10:00 AM AMBULATORY - REHAB MEDICIN E [facility] [place] [facility] May 16, 2024 10:00 AM AMBULATORY - REHAB MEDICIN E [facility] [place] [facility] May 16, 2024 11:00 AM AMBULATORY - REHAB MEDICIN E [facility] [place] [facility] May 21, 2024 03:00 PM AMBULATORY - REHAB MEDICIN E [facility] [place] [facility] May 29, 2024 10:30 AM AMBULATORY - REHAB MEDICIN E [facility] [place] [facility] Jun 05, 2024 10:00 AM AMBULATORY - REHAB MEDICIN E [facility] [place] [facility] Jun 07, 2024 03:00 PM AMBULATORY - MEDICINE [facility] [place] [facility] Jun 12, 2024 10:00 AM AMBULATORY - REHAB MEDICIN E [facility] [place] [facility] Jun 14, 2024 10:30 AM AMBULATORY - NONE [facility] [place] [facility] Jun 15, 2024 02:00 PM AMBULATORY - MEDICINE [facility] [place] [facility] Jun 26, 2024 10:30 AM AMBULATORY - REHAB MEDICIN E [facility] [place] [facility] Jun 26, 2024 01:00 PM AMBULATORY - MEDICINE [facility] [place] [facility] Jul 03, 2024 10:30 AM AMBULATORY - REHAB MEDICIN E [facility] [place] [facility] Jul 10, 2024 10:30 AM AMBULATORY - REHAB MEDICIN E [facility] [place] [facility] Jul 12, 2024 10:30 AM AMBULATORY - MEDICINE [facility] [place] [facility] Jul 24, 2024 10:00 AM AMBULATORY - REHAB MEDICIN E [facility] [place] [facility] Aug 09, 2024 10:00 AM AMBULATORY - MEDICINE [facility] [place] [facility] Aug 10, 2024 10:00 AM AMBULATORY - REHAB MEDICIN E [facility] [place] [facility] Lab Results: +/- 30 days [...] Type Comment Apr 19, 2024 09:58 AM [facility] BASIC METABOLIC PANEL (fasting) SERUM Specime n Type: SERUM No comment entered. Ordering Provider: AARON WALDEN Report Released Date/Time: Apr 14, 2024 05:40 PM Reporting Lab: [address] [address] Performing Lab: [address] [address] UREA NITROGEN 17 mg/dL 7-25 GLUCOSE 103 [...] Apr 14, 2024 05:40 PM Reporting Lab: [address] [address] Performing Lab: [address] [address] PROTEIN,TOTAL 6.8 g/dL 6.0-8.3 ALBUMIN 3.8 g/dL 3.5-5.0 ALKALINE PHOSPHATASE 69 U/L 40-150 AST 17 U/L 5-34 ALT 27 U/L BILIRUBIN, TOTAL 0.6 mg/dL 0.2-1.2 Apr 19, 2024 09:58 AM [facility] LIPID PANEL FASTING SERUM Specimen Type: SERU M No comment entered. Ordering Provider: AARON WALDEN Report Released Date/Time: Apr 14, 2024 05:40 PM Reporting Lab: [place] [facility] [place] [facility] [address] [address] Performing Lab: [place] [facility] [place] [facility] [address] [address] CHOLESTEROL 120 mg/dL TRIGLYCERIDE 98 mg/dL 0-150 LDL calculated 63 mg/dL 0-129 CHOL/HDL 3.2 HDL CHOLESTEROL 37 mg/dL L 40-60 Apr 19, 2024 09:58 AM [facility] TSH SERUM Specimen Type: SERUM No comment entered. Ordering Provider: AARON WALDEN Report Released Date/Time: Apr 14, 2024 05:40 PM Reporting Lab: [facility] [place] [facility] [address] [address] Performing Lab: [facility] [address] [address] TSH 2.19 u[IU]/mL 0.35-5.00 Apr 19, 2024 09:58 AM [facility] URIC ACID SERUM Specimen Type: SERUM No comment entered. Ordering Provider: AARON WALDEN Report Released Date/Time: Apr 14, 2024 05:40 PM Reporting Lab: [facility] [address] [address] Performing Lab: [facility] [address] [address] URIC ACID 3.1 mg/dL L 3.5-7.2 Apr 19, 2024 09:58 AM [facility] CBC AND DIFF (AUTO) BLOOD Specimen Type: BLOO D No comment entered. Ordering Provider: AARON WALDEN Report Released Date/Time: Apr 14, 2024 05:40 PM Reporting Lab: [facility] [address] [address] Performing Lab: [facility] [address] [address] WBC 6.75 10*3/uL 4.50-11.00 RBC 3.99 10*6/uL [...] PM Reporting Lab: [facility] [address] [address] Performing Lab: [address] [address] UA COLOR Light-Yellow Yellow UA APPEARANCE Clear [...] Pain Height Weight Body Mass Index Source Apr 23, 2024 10:33 AM 134/80 [facility] Apr 23, 2024 10:12 AM 98.2 92 148/71 16 96 5 70.5 206 29 [facility] Immunizations: All administered on the encounter date This section contains immunizations associated to the Encounter. 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 ADMINISTERE D AT [facility] INFLUENZA, HIGH-DOSE, TRIVALENT, PF Apr 23, 2024 RADHAMES ORTEGA H RIGHT [place] ID [id number] [employer] PASTE[employer] ADMINISTERE D AT [facility] Social History: Smoking Status (Most current) [...] almonte Apr 23, 2024 10:00 AM VA-TOBACCO FORMER USER [facility] Tobacco Use History This section includes a history of the smoking, or tobacco-related health factors, that were collected on or before the date of the Encounter. The data comes from the [place] facility where the Encounter took place. Date/Time Smoking Status/Tobac co Use Comment Facility Apr 23, 2024 10:00 AM NE-TOBACCO QUIT 5 TO < 15 YRS [facility] Apr 13, 2023 11:00 AM VA-TOBACCO FORMER USER [facility] [place] [facility] Apr 13, 2023 11:00 AM VA-TOBACCO QUIT 5 TO < 15 YRS [facility] [place] [facility] Apr 14, 2022 01:30 PM VA-TOBACCO FORMER USER [facility] [place] [facility] Apr 14, 2022 01:30 PM VA-TOBACCO QUIT 5 TO < 15 YRS [facility] [place] [facility] Apr 10, 2021 10:00 AM VA-TOBACCO FORMER USER [facility] [place] [facility] Apr 10, 2021 10:00 AM VA-TOBACCO QUIT 5 TO < 15 YRS [facility] [place] [facility] Apr 02, 2020 10:30 AM VA-TOBACCO FORMER USER [facility] [place] [facility] Apr 02, 2020 10:30 AM VA-TOBACCO QUIT 5 TO < 15 YRS [facility] [place] [facility] Sep 29, 2018 08:52 AM VA-TOBACCO FORMER USER [place] [facility] [place] [facility] Sep 29, 2018 08:52 AM VA-TOBACCO QUIT 15 YRS OR MORE [facility] [place] [facility] December 21, 2017 12:27 PM QUIT TOBACCO USE 1-7 YEARS AGO 5 or 6 years ago [facility] [place] [facility] May 19, 2017 10:21 AM QUIT TOBACCO USE 1-7 YEARS AGO [facility] [place] [facility] Aug 19, 2016 09:56 AM QUIT TOBACCO USE 1-7 YEARS AGO [facility] [place] [facility] Feb 12, 2016 11:34 AM QUIT TOBACCO USE 1-7 YEARS AGO [facility] [place] [facility] Aug 08, 2015 03:04 PM QUIT TOBACCO USE 1-7 YEARS AGO [facility] [place] [facility] Aug 08, 2015 03:04 PM QUIT TOBACCO USE IN PAST YEAR pt states he stooped smmoking in the past yr. [facility] [place] [facility] Advance Directives: All historical and [...] 20, 2012 ADVANCE DIRECTIVE DISCUSSION MONIKA IZAGUIRRE [facility] Encounter Notes: All associated encounter notes This section contains the clinical notes associated to the Encounter. Date/Time Encounter Note(s) Provider Source Apr 23, 2024 10:33 AM PHYSICIAN NOTE: LOCAL TITLE: MD NOTE STANDARD TITLE: PHYSICIAN NOTE DATE OF NOTE: APR 23, 2024@10:33 ENTRY DATE: APR 23, 2024@10:33:35 AUTHOR: AARON WALDEN EXP COSIGNER: URGENCY: STATUS: COMPLETED Patient Name: SANCHO DYE VITALS: Patient temperature: 98.2 F [36.8 C] (04/23/2024 10:12) Blood pressure: 134/80 (04/23/2024 10:33) Patient height: 70.5 in [179.1 cm] (04/23/2024 10:12) Patient weight: 206 lb [93.44 kg] (04/23/2024 10:12) Patient BMI: BMI: 29.2 Patient pulse: 92 (04/23/2024 10:12) Patient respiration: 16 (04/23/2024 10:12) Patient Pulse Oximetry: 96% (04/23/2024 10:12) Pain Ratin (04/23/2024 10:12) Active [facility] Medications: Active Outpatient Medications (including [...] 75MG TAB TAKE ONE TABLET BY ACTIVE (S) MOUTH EVERY DAY 7) CYCLOBENZAPRINE HCL 10MG [...] MOUTH AT ACTIVE BEDTIME FOR ENLARGED PROSTATE Remote Medications: No Active 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 Feels well today with no complaints. Does not get enough exercise. Stays active with activities. Review of systems No chest pain or dyspnea No abdominal pain No trouble urinating No fever or chills No cough Physical examination Well-developed well-nourished male in no acute distress Coronary no murmur Lungs clear No edema Carotid no bruit Ears no erythema Color, Urine (AX 4280): Light-Yellow Appearance, Urine (AX 4280): Clear Glucose, Urine (AX 4280): Normal Ketones, Urine (AX 4280): NEGATIVE Blood, Urine (AX 4280): NEGATIVE Protein, Urine (AX 4280): NEGATIVE Nitrite, Urine (AX 4280): NEGATIVE Bilirubin, Urine (AX 4280): NEGATIVE Specific [place], (AX 4280): 1.012 L pH, Urine ([id number]): 6.0 Urobilinogen, Urine (AX 4280): Normal Leukocyte Esterase, (AX 4280): NEGATIVE TSH (Access): 2.19 GLUCOSE: 103 H UREA NITROGEN: 17 SODIUM: 139 POTASSIUM: 4.2 CHLORIDE: 107 CO2: 25 URIC ACID: 3.1 L CHOLESTEROL: 120 PROTEIN,TOTAL: 6.8 ALBUMIN: 3.8 ALKALINE PHOSPHATASE: 69 SGOT: 17 SGPT: 27 TRIGLYCERIDE: 98 LDL CHOL: 63 CHOL/HDL RATIO: 3.2 HDL: 37 L BILIRUBIN,TOT.: 0.6 CREATININE-EGFR: 1.05 eGFR CKD-EPI 2020: 73 WBC: 6.75 RBC: 3.99 L HGB: 12.6 L HCT: 37.7 L MCV: 94.5 MCHC: 33.4 RDW: 13.4 PLT: 237 MCH: 31.6 Neut %: 50.8 Lymph %: 33.2 [place] %: 9.2 Eos %: 5.8 Baso %: 0.6 Neut, Abs: 3.43 Lymph, Abs: 2.24 [place], Abs: 0.62 Eos, Abs: 0.39 Baso, Abs: 0.04 Immature Granulocytes %: 0.4 Immature Granulocytes, Abs: 0.03 NRBC%: 0.0 NRBC#: 0.00 I discussed above test results with patient Assessment and plan: 1. Coronary artery disease: No chest pain or dyspnea Plan continue present medications 2. Impaired fasting glucose: Provided education about diet, and exercise Plan follow follow-up 6 months clinic visit and lab Medication Reconciliation: Outpatient: Has the patient been taking medications as documented in the EMLR? YES: The patient has been taking medications as documented in the EMLR. Essential Medication List for Review used to complete this medication reconciliation. INCLUDED IN THIS LIST: Alphabetical list of active outpatient prescriptions dispensed from this [place] (local) and dispensed from another [place] or [facility] facility (remote) as well as inpatient orders [...] whether with a VA or non-VA provider. /glenis/ Aaron Walden MD Staff Physician Signed: 04/23/2024 10:37 AARON WALDEN [place] [facility] [place] [facility] Apr 23, 2024 10:15 AM PREVENTIVE MEDICINE NURSING NOTE: LOCAL TITLE: CLINICAL REMINDERS/NURSING STANDARD TITLE: PREVENTIVE MEDICINE NURSING NOTE DATE OF NOTE: APR 23, 2024@10:15 ENTRY DATE: APR 23, 2024@10:15:50 AUTHOR: OSMANY PALOMINO EXP COSIGNER: URGENCY: STATUS: COMPLETED CLINICAL REMINDERS/NURSING Has ADDENDA Alcohol Use Screen (AUDIT-C): Alcohol Screen: SCREEN FOR ALCOHOL (AUDIT-C) An alcohol screening test (AUDIT-C) was negative (score=0). 1. How often did you have a drink containing alcohol in the past year? Consider a drink to be a 12 ounce can or bottle of regular beer, 8 ounces of malt liquor, a 5 ounce glass of table wine, or a 1.5 ounce shot of liquor (like scotch, gin, or vodka). Never 2. How many drinks containing alcohol did you have on a typical day when you were drinking in the past year? Response not required due to responses to other questions. 3. How often did you have six or more drinks on one occasion in the past year? Response not required due to responses to other questions. Tobacco Use Screening: The patient is a former tobacco user. The patient quit five to less than fifteen years ago. Depression Screening: Perform PHQ-2 A PHQ-2 screen was performed. The score was 1 which is a negative screen for depression. Over the past two weeks, how often have you been bothered by the following problems? 1. Little interest or pleasure in doing things Not at all 2. Feeling down, depressed, or hopeless Several days Falls & Incontinence Screen: Falls Screen: During the past 12 months, did the patient report any falls? 4. No falls within the past year. Incontinence Screen: During the past 12 months, has the patient has any characteristics of incontinence (ability, voiding, leakage, etc.)? No incontinence. (Optional) Whole Health Documentation: What matters the most to you? What motivates you to be healthy? 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 The patient/caregiver denied any prior severe reaction to this vaccine or its components or a severe allergic reaction, such as anaphylaxis, to any vaccine or any injectable therapy. The patient/caregiver gave verbal consent to receive the vaccine. 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 Lot: [id number] Exp Date: December 15, 2024 NDC: [id number] Admin Route/Site: INTRAMUSCULAR/RIGHT DELTOID Dosage: 0.5mL Vaccine Information Statement(s): COVID-19 MRNA VACCINE (12+ YRS) VACCINE VIS May 12, 2023 ([place]) Order By: Policy Administered By: Alba Ortega Vaccine administered without complications. /glenis/ ALBA ORTEGA REGISTERED NURSE Signed: 04/23/2024 10:44 OSMANY PALOMINOL [facility]N [facility]
--- OUTSIDE RECORDS SUMMARY | 2024-11-20 16:12 | XMS_ITS | Encounter Summary ---
Author Name [facility] [place] Address [address] [place] [address] Care Team Providers Care Consumer Lending Manager Name Role Phone AARON WALDEN Primary [...] PART B Apr 24, 2013 PART B [id number] KLEBER DYE RY PATIENT MEDICARE (WNR) MEDICARE () PART B Apr 24, 2013 PART B [id number] [facility] KLEBER DYE RY PATIENT MEDICARE (WNR) MEDICARE (M) PART B Apr 24, 2013 PART B [id number] KLEBER DYE RY PATIENT MEDICARE (WNR) MEDICARE () PART A November 23, 2011 PART A [id number] [id number] KLEBER DYE RY PATIENT MEDICARE (WNR) MEDICARE () PART A November 23, 2011 PART A [id number] [id number] KLEBER DYE RY PATIENT MEDICARE (WNR) MEDICARE () PART A November 23, 2011 PART A [id number] KLEBER DYE PATIENT [employer] [place] [employer] PLAN G PLAN G Apr 24, 2013 PLAN G [id number] [phone] KLEBER DYE PATIENT [employer] [place] [employer] PLAN G PLANG Apr 24, 2013 PLANG [id number] KLEBER DYE PATIENT [employer] [place] [employer] PLAN G Apr 24, 2013 PLANG [id number] KELBER DYE PATIENT Selected Encounter This section includes the information on record at [place] for the Encounter. Date/Time Encounter Type Encounter Description Reason Pro vider Source Nov 15, 2024 08:58 AM Outpatient Encounter ADMIN PAT ACTIVTIES (MASNONCT) IHE Encounter Template Text not used by [place] Plan of Treatment: Future Appointments (+ 6 months) and Future Tests (+/- 45 days) The Plan of Treatment section includes future care activities for the patient [facility] [place] [facility] This section includes future appointments and [...] 20, 2024 02:15 PM AMBULATORY - MEDICINE [facility] [place] [facility] Nov 21, 2024 11:30 AM AMBULATORY - MEDICINE [facility] [place] [facility] December 12, 2024 11:30 AM AMBULATORY - MEDICINE [facility] [place] [facility] Dec 25, 2024 01:00 PM AMBULATORY MEDICINE [facility] [place] [facility] Jan 01, 2025 09:00 AM AMBULATORY MEDICINE [facility] Active, Pending, and Scheduled Orders This section includes a listing of several types of active, pending, and scheduled orders, including clinic medications orders, diagnostic test orders, procedure orders and consult orders; where the start date of the order is 45 days before the date of the Encounter or 45 days after the date of theEncounter. The data comes from all [facility]. Test Date/Time Test Type Test Details Facility Name Nov 12, 2024 02:06 PM Consult Order COMMUNITY CARE-OPHTHALMOLOGY Cons [facility] [place] [place] [facility] Nov 16, 2024 10:03 AM Consult Order COMMUNITY CARE-VASCULAR SURGERY Cons Floor Supervisor's Choice [facility] [place] [facility] Social History: Smoking Status [...] VA-TOBACCO QUIT 5 TO < 15 YRS [place] [facility] Tobacco Use History This section includes a history of the smoking, or tobacco-related health factors, that were collected on or before the date of the Encounter. The data comes from the [place] facility where the Encounter took place. Date/Time Smoking Status/Tobac co Use Comment [facility] Apr 23, 2024 10:00 AM VA-TOBACCO QUIT 5 TO < 15 YRS [facility] [place] [facility] Apr 13, 2023 11:00 AM VA-TOBACCO FORMER USER [facility] [place] [facility] Apr 13, 2023 11:00 AM VA-TOBACCO QUIT 5 TO < 15 YRS [facility] [place] [facility] Apr 14, 2022 01:30 PM VA-TOBACCO FORMER USER [facility] [place] [facility] Apr 14, 2022 01:30 PM VA-TOBACCO QUIT 5 TO < 15 YRS [facility] [place] [facility] Apr 10, 2021 10:00 AM VA-TOBACCO FORMER USER [facility] [place] [facility] Apr 10, 2021 10:00 AM VA-TOBACCO QUIT 5 TO < 15 YRS [facility] [place] [facility] Apr 02, 2020 10:30 AM VA-TOBACCO FORMER USER [facility] [place] [facility] Apr 02, 2020 10:30 AM VA-TOBACCO QUIT 5 TO < 15 YRS [facility] [place] [facility] Sep 29, 2018 08:52 AM VA-TOBACCO FOR[facility]ER [facility] [place] [facility] Sep 29, 2018 08:52 AM VA-TOBACCO QUIT 15 YRS OR MORE [facility] December 21, 2017 12:27 PM QUIT TOBACCO USE 1-7 YEARS AGO 5 or 6 years ago [facility] [place] [facility] May 19, 2017 10:21 AM QUIT TOBACCO USE 1-7 YEARS AGO [facility] Aug 19, 2016 09:56 AM QUIT TOBACCO USE 1-7 YEARS AGO [facility] Feb 12, 2016 11:34 AM QUIT TOBACCO USE 1-7 YEARS AGO [facility] Aug 08, 2015 03:04 PM QUIT TOBACCO USE 1-7 YEARS AGO [facility] Aug 08, 2015 03:04 PM QUIT TOBACCO USE IN PAST YEAR pt states he stooped smmoking in the past yr. [facility] Advance Directives: All historical and current Section Date Range: From patient's date of to the date document was created. This section includes ALL of a patient's completed or amended [place] Advance and Rescinded Directives. The entries below indicate that a directive exists for the patient, but an actual copy is not included with this document. The data comes from all [place] facilities. Date Advance Directives Provider Source Jun 20, 2012 ADVANCE DIRECTIVE DISCUSSION MONIKA IZAGUIRRE [facility] Pathology Reports: +/- 30 days of the [...] comes from all [place] treatment facilities. Date/Time Pathology Report Provider Source Oct 16, 2024 10:36 AM LR MICROBIOLOGY RE PORT: Reporting Lab: [facility] [CLIA# [id number]] [address] [place] [id number] Accession [UID]: [id number] [[id number]] Received: Oct 16, 2024@10:36 Collection sample: URINE CLEAN CATCH Collection date: Oct 16, 2024 10:36 Site/Specimen: URINE Provider: AARON WALDEN Test(s) ordered: URINE CULTURE(MWROX).......... completed: Oct 19, 2024 09:18 * BACTERIOLOGY FINAL REPORT => Oct 19, 2024 09:18 TECH CODE: [id number] Bacteriology Remark(s): Culture in progress NO GROWTH IN 24 HOURS, FINAL REPORT TO FOLLOW. FINAL AEROBIC REPORT: NO GROWTH =--=--=--=--=--=--=--=--= --=--=--=--=--=--=--=--=- -=--=--=--=--=--=--=--=-- =-- Performing Laboratory: Bacteriology Report Performed By: [facility] [CLIA# [id number]] [address] [place] [id number] [facility] Encounter Notes: All associated encounter notes This section contains the clinical notes associated to the Encounter. Date/Time Encounter Note(s) Provider Source Nov 16, 2024 09:43 AM ADDENDUM: LOCAL TITLE: Addendum STANDARD TITLE: ADDENDUM DATE OF NOTE: NOV 16, 2024@09:43:56 ENTRY DATE: NOV 16, 2024@09:43:58 AUTHOR: MERLY MATTHEWS EXP COSIGNER: URGENCY: STATUS: COMPLETED spoke with [facility] cardiology office. They reommend he see [facility] vascular surgery jojo. Placed consult. please sign if agree. thank you. /glenis/ Merly Matthews RN, BSN Primary Care Signed: 11/16/2024 09:44 Receipt Acknowledged By: 11/16/2024 10:07 /glenis/ Aaron Walden MD Staff Physician === --- Original Document --- 11/15/24 CCC: SCHEDULING ADMINISTRATION: Caller Verification Emergency Contact: JOMAR TORRES Emergency Contact Caller/Recipient Relation to Patient: Self Caller Name: SANCHO DYE Administrative Administrative Note Reason: Other Administrative Note Comments: was d/c from [facility] ED and was recommended to follow-up with Vascular. Please call back to discuss referral. IMPORTANT: This note was created by [facility] Clinical Contact Center staff. Please do not alert the staff member by adding them as a signer for future communications. Alerts are not monitored by this user. /glenis/ MINGO LORENZO 1 [facility] AMSA Signed: 11/15/2024 08:59 Receipt Acknowledged By: * AWAITING SIGNATURE * MERLY MATTHEWS 11/16/2024 07:25 /es/ OSMANY PALOMINO LPN LPN 11/15/2024 ADDENDUM STATUS: COMPLETED Pat, will you please schedule this ED follow up appointment to discuss? /tyra PALOMINO LPN LPN Signed: 11/15/2024 11:32 Receipt Acknowledged By: 11/16/2024 08:54 /glenis/ MINGO BUTLER 11/15/2024 ADDENDUM STATUS: COMPLETED [facility] CALLED ON TELEPHONE AND SCHEDULED AN APPT SET FOR October @ 11:30AM. /glenis/ PRABHA RENE AMSA Signed: 11/15/2024 16:03 11/16/2024 ADDENDUM STATUS: UNSIGNED You may not VIEW this UNSIGNED Addendum. MERLY MATTHEWS [place] [facility] Nov 15, 2024 11:31 AM ADDENDUM: LOCAL TITLE: Addendum STANDARD TITLE: ADDENDUM DATE OF NOTE: NOV 15, 2024@11:31:03 ENTRY DATE: NOV 15, 2024@11:31:04 AUTHOR: OSMANY PALOMINO EXP COSIGNER: URGENCY: STATUS: COMPLETED Pat, will you please schedule this ED follow up appointment to discuss? /es/ OSMANY PALOMINO LPN LPN Signed: 11/15/2024 11:32 Receipt Acknowledged By: 11/16/2024 08:54 /glenis/ MINGO BUTLER === --- Original Document --- 11/15/24 CCC: SCHEDULING ADMINISTRATION: Caller Verification Emergency Contact: JOMAR LEAHYMAN Emergency Contact Caller/Recipient Relation to Patient: Self Caller Name: SANCHO DYE Administrative Administrative Note Reason: Other Administrative Note Comments: was d/c from [facility] ED and was recommended to follow-up with Vascular. Please call back to discuss referral. IMPORTANT: This note was created by [facility] Clinical Contact Center staff. Please do not alert the staff member by adding them as a signer for future communications. Alerts are not monitored by this user. /glenis/ MINGO LORENZO 1 [facility] AMSA Signed: 11/15/2024 08:59 Receipt Acknowledged By: * AWAITING SIGNATURE * MERLY MATTHEWS 11/16/2024 07:25 /glenis/ OSMANY PALOMINO LPN LPN 11/15/2024 ADDENDUM STATUS: COMPLETED [facility] CALLED ON TELEPHONE AND SCHEDULED AN APPT SET FOR October @ 11:30AM. /glenis/ PRABHA RENE AMSA Signed: 11/15/2024 16:03 OSMANY PALOMINO [place] [facility] Nov 15, 2024 08:59 AM ADMINISTRATIVE NOT E: LOCAL TITLE: CCC: SCHEDULING ADMINISTRATION STANDARD TITLE: ADMINISTRATIVE NOTE DATE OF NOTE: NOV 15, 2024@08:59:02 ENTRY DATE: NOV 15, 2024@08:59:02 AUTHOR: MINGO ARIAS EXP COSIGNER: URGENCY: STATUS: COMPLETED CCC: SCHEDULING ADMINISTRATION Has ADDENDA Caller Verification Emergency Contact: JOMAR TORRES Emergency Contact Caller/Recipient Relation to Patient: Self Caller Name: SANCHO DYE Administrative Administrative Note Reason: Other Administrative Note Comments: [place] was d/c from [facility] and was recommended to follow-up with Vascular. Please call back to discuss referral. IMPORTANT: This note was created by [facility] Clinical Contact Center staff. Please do not alert the staff member by adding them as a signer for future communications. Alerts are not monitored by this user. /glenis/ MINGO LORENZO 1 [facility] AMSA Signed: 11/15/2024 08:59 Receipt Acknowledged By: 11/16/2024 10:08 /glenis/ Merly Matthews RN, BSN Primary Care 11/16/2024 07:25 /glenis/ OSMANY PALOMINO LPN LPN 11/15/2024 ADDENDUM STATUS: COMPLETED Pat, will you please schedule this ED follow up appointment to discuss? /glenis/ OSMANY PALOMINO LPN LPN Signed: 11/15/2024 11:32 Receipt Acknowledged By: 11/16/2024 08:54 /glenis/ MINGO BUTLER 11/15/2024 ADDENDUM STATUS: COMPLETED [facility] CALLED ON TELEPHONE AND SCHEDULED AN APPT SET FOR October @ 11:30AM. /glenis/ PRABHA RENE AMSJohnna Signed: 11/15/2024 16:03 11/16/2024 ADDENDUM STATUS: COMPLETED spoke with [facility] cardiology office. They reommend he see [facility] vascular surgery jojo. Placed consult. please sign if agree. thank you. /tyra Matthews RN, BSN Primary Care Signed: 11/16/2024 09:44 Receipt Acknowledged By: 11/16/2024 10:07 /glenis/ Aaron Walden MD Staff Physician 11/16/2024 ADDENDUM STATUS: COMPLETED Signed. /glenis/ Aaron Walden MD Staff Physician Signed: 11/16/2024 10:07 MINGO ARIAS [place] [facility]
== END 2024-11-20 14:25 | disposition home or self-care (01) ==
LOC: HO.HVS 14:00
PROVIDERS: PCP Internal Medicine; Visit Provider Surgery Vascular Surgery
DX: I65.23 Occlusion and stenosis of bilateral carotid arteries (principal)
CPT/HCPCS: 99204

== ENCOUNTER → 2024-11-20 14:00 | Outpatient (BNVA) | payer OTHER, SELFPAY | PROVIDERS: PCP Internal Medicine; Visit Provider Surgery Vascular Surgery | DX: I65.23 Occlusion and stenosis of bilateral carotid arteries (principal) | CPT/HCPCS: 99202 ==

== ENCOUNTER 2025-05-24 23:35 | Emergency (ER) | payer OTHER, SELFPAY ==
--- NOTE | ~2025-05-24 | XR_ITS ---
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 Small fragments of the 1st interphalangeal joint appear old/chronic. Soft tissue gas and swelling include the 5th digit with overlying bandage artifacts. No acute displaced fracture of the hand. Additional erosions noted including metacarpal-phalangeal joints Vascular calcifications and soft tissue calcifications noted. With likely ligament calcification adjacent to 3rd distal interphalangeal joint. IMPRESSION: 1. No acute displaced fracture. 2. 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 This document has been electronically signed by: Jonny Espinoza MD on 05/25/2025 02:00:02
[2025-05-24 23:37] VITALS: BP 114/62; PULSE 82; RESP 18; TEMP 36.4; O2SAT 97; BMI 28.7
--- OUTSIDE RECORDS SUMMARY | 2025-05-25 01:00 | XMS_ITS | Encounter Summary ---
Author Organization [facility] Address [address] [place] [address] Phone Care Team Providers Care Predatory Hunter Name Role Phone Aaron Solis MD Unavailable Nestor Vang MD Unavailable [phone] Stephan Zhou MD Unavailable [phone] Aaron Solis MD Primary Care Provider + Encounter Details Date Type Department Care Team (Late st Contact Info) Description 03/22/2018 Ancillary Orders [facility] [address], [address] [place] [address] German Alvarez MD [address] [place] [address] Social History Tobacco Use Types Packs/Day Years Used Date Smoking Tobacco: Former Smokeless Tobacco: Never Alcohol Use Standard Drinks/Week Comments No 0 (1 standard drink = 0.6 oz pur e alcohol) Sex and Gender Information Value Date Recorded Sex Assigned at Not on file Legal Sex Male 10:37 PM EDT Gender Identity Not on file Sexual Orientation Not on file documented as of this encounter Plan of Treatment Not on file documented as of this encounter Visit Diagnoses Not on filedocumented in this encounter Care Teams Predatory Hunter Relationship Specialty Start Date End Date Aaron Solis MD [address] [place] [address] PCP - General 07/28/17 Aaron Solis MD [address] [place] [address] Historical LMR Provider 05/14/17 2 Nestor Vang MD [address] [place] [address] [email or web address] Historical LMR Provider 05/14/17 08/01/21 Stephan Zhou MD [address] [address] Historical LMR Provider 05/14/17 2 documented as of this encounter Additional Source Comments The information contained in this document represents components of the legal health record. It is not the complete legal health record.[facility]
--- OUTSIDE RECORDS SUMMARY | 2025-05-25 01:00 | XMS_ITS | Encounter Summary ---
Author Organization [facility] Address [address] [place] [address] Phone Care Team Providers Care Bindery Technician Name Role Phone Aaron Solis MD Unavailable Nestor Vang MD Unavailable [phone] Stephan Zhou MD Unavailable [phone] Aaron Solis MD Primary Care Provider + Encounter Details Date Type Department Care Team (Latest Contact Info) Description 03/22/2018 Ancillary Orders [facility] [address] [place] [address] German Alvarez MD [address] [place] [id number] [email or web address] Chest pain, unspecified type Social History Tobacco Use Types Packs/Day Years [...] as of this encounter Plan of Treatment Scheduled Orders Name Type Priority Associated Diagnoses Orde r Schedule Holter Monitor 48 Hours Cardiac Monitors Routine Chest pain, unspecified type Expected: 03/29/2018, Expires: 03/22/2019 documented as of this encounter Visit Diagnoses Diagnosis Chest pain, unspecified type documented in this encounter Care Teams Bindery Technician Relationship Specialty Start Date End Date Aaron Solis MD [address] [address] PCP - General 07/28/17 Aaron Solis MD [address] [place] [address] Historical LMR Provider 05/14/17 2 Nestor Vang MD [address] [place] [address] [email or web address] Historical LMR Provider 05/14/17 08/01/21 Stephan Zhou MD [address] [address] Historical LMR Provider 05/14/17 2 documented as of this encounter Additional Source Comments The information contained in this document represents components of the legal health record. It is not the complete legal health record.[facility]
--- OUTSIDE RECORDS SUMMARY | 2025-05-25 01:00 | XMS_ITS | Encounter Summary ---
Author Organization [facility] Address [address] [place] [address] Phone Care Team Providers Care Band Director Name Role Phone Aaron Solis MD Unavailable [phone] Nestor Vang MD Unavailable [phone] Stephan Zhou MD Unavailable Aaron Solis MD Primary Care Provider + Encounter Details Date Type Department Care Team (Latest Contact Info) Description 03/22/2018 Ancillary [facility] [address] [place] [address] [place] [address] German Alvarez MD [address] [place] [phone] [email or web address] Chest pain, unspecified type Social [...] on file documented as of this encounter Results * Holter Monitor 48 Hours (03/22/2018 10:54 AM EDT) Anatomical Region Laterality Modality Heart Other Narrative 03/22/2018 1:04 PM EDT 48 hour monitor: No symptoms reported. Baseline rhythm is sinus with a minimum heart rate of 45 maximum 110 average 63 bpm. Rare PVCs present. Occasional PACs and atrial ectopy present, with 3 and 4 beat runs of atrial tachycardia occurring. The longest pause is less than 1.5 seconds. Patient event markers occurred during sinus rhythm. Impression: Except for brief episodes of atrial tachycardia, normal 48 hour monitor, no symptoms reported, patient event markers during sinus rhythm. German Alvarez MD [facility] ORDERABLES F inal Result documented in this encounter Visit Diagnoses Diagnosis Chest pain, unspecified type Chest pain, unspecified type documented in this encounter Care Teams Band Director Relationship Specialty Start Date End Date Aaron Solis MD [address] [place] [address] [place] [address] PCP - General 07/28/17 Aaron Solis MD [address] [place] [address] Historical LMR Provider 05/14/17 2 Nestor Vang MD [address] [place] [address] [email or web address] Historical LMR Provider 05/14/17 08/01/21 Stephan Zhou MD [address] [place] [address] [place] [address] Historical LMR Provider 05/14/17 2 documented as of this encounter Additional Source Comments The information contained in this document represents components of the legal health record. It is not the complete legal health record.[facility]
--- OUTSIDE RECORDS SUMMARY | 2025-05-25 01:00 | XMS_ITS | Encounter Summary ---
Author Organization [facility] Address [address] [place] [address] Phone Care Team Providers Care Linotype Worker Name Role Phone Aaron Solis MD Unavailable Nestor Vang MD Unavailable [phone] Stephan Zhou MD Unavailable [phone] Aaron Solis MD Primary Care Provider + Encounter Details Date Type Department Care Team (Late st Contact Info) Description 03/22/2018 Ancillary Orders [facility] [address], [address] [place] [address] German Alvarez MD [address] [place] [address] Social History Tobacco Use Types Packs/Day Years [...] on filedocumented in this encounter Care Teams Linotype Worker Relationship Specialty Start Date End Date Aaron Solis MD [address] [place] [address] PCP - General 07/28/17 Aaron Solis MD [address] [place] [address] Historical LMR Provider 05/14/17 2 Nestor Vang MD [address] [place] [address] [email or web address] Historical LMR Provider 05/14/17 08/01/21 Stephan Zhou MD [address] [address] Historical LMR Provider 05/14/17 2 documented as of this encounter Additional Source Comments The information contained in this document represents components of the legal health record. It is not the complete legal health record.[facility]
--- OUTSIDE RECORDS SUMMARY | 2025-05-25 01:00 | XMS_ITS | Clinical Summary ---
Author Organization [facility] Address [address] [place] [id number] Phone Care Team Providers Care Hostler Helper Name Role Phone Aaron Solis MD Primary Care Provider + Allergies No known active allergies Medications allopurinol (ZYLOPRIM) 300 MG tablet 1 tablet Active metoprolol succinate (TOPROL-XL) 50 MG 24 hr tablet Take 50 mg by mouth daily. Active atorvastatin (LIPITOR) 40 MG tablet Take 40 mg by mouth daily. Active aspirin 81 MG EC tablet Take 81 mg by mouth daily. Active cilostazol (PLETAL) 50 MG tablet Take 50 mg by mouth 2 (two) times a day. Active clopidogrel (PLAVIX) 75 mg tablet Take 75 mg by mouth daily. Active pantoprazole (PROTONIX) 20 MG tablet Take 20 mg by mouth daily. Active multivitamins capsule Take 1 capsule by mouth daily. Active Active Problems Problem Noted Date Diagnosed Date Hypertension 10/24/2017 Family History Medical History Relation Comments CABG Brother Heart disease Brother Cancer Father CABG Mother Stroke Mother CABG Sister Relation Status Comments Brother Father Mother Sister Social History Tobacco Use Types Packs/Day Years Used Date Smoking Tobacco: Former Smokeless Tobacco: Never Alcohol Use Standard Drinks/Week Comments No 0 (1 standard drink = 0.6 oz pur e alcohol) Education Answer Date Recorded Are you interested in more education? Not on shea e 11/19/2022 Are you concerned about learning? Not on file 11/19/2022 No 11/19/2022 No 11/19/2022 Digital Access Answer Date Recorded No 12/18/2022 No 12/18/2022 No 12/18/2022 Reliable internet access at home? Not on file 12/18/2022 Device with a working camera? Not on file Sex and Gender Information Value Date Recorded Sex Assigned at Not on file Legal Sex Male 10:37 PM EDT Gender Identity Not on file Sexual Orientation Not on file Last Filed Vital Signs Vital Sign Reading Time Taken Comments Blood Pressure 170/72 10/24/2017 11:38 AM EDT Pulse 74 10/24/2017 11:38 AM EDT Temperature - - Respiratory Rate - - Oxygen Saturation 97% 10/24/2017 11:38 AM EDT Inhaled Oxygen Concentration - - Weight 90.7 kg (200 lb) 10/24/2017 11:38 AM EDT Height 177.8 cm (5' 10 ) 10/24/2017 11:38 AM EDT Body Mass Index 28.7 10/24/2017 11:38 AM EDT Plan of Treatment Health Maintenance Due Date Last Done Comments BLOOD PRESSURE 1946 CREATININE LEVEL 1946 LIPID PANEL 1946 DEPRESSION SCREENING 1958 SMOKING Hx and SMOKELESS TOBACCO SCREENING 11/29/1959 HEPATITIS C SCREENING 1964 PNEUMOCOCCAL VACCINES (50+ years) (1 of 1 - PCV) 1996 ZOSTER VACCINES (1 of 2) 1996 RSV VACCINE (1 - 1-dose 75+ series) 2021 INFLUENZA VACCINE (#1) 2025 , 04/18/2019, 05/10/2018, Additional history exists COVID-19 VACCINE ( - 2024- season) 2025 11/04/2020, 10/11/2020 Adult Td,Tdap Booster 08/08/2025 08/08/2015 HEPATITIS A VACCINES Aged Out No long er eligible based on patient's age to complete this topic HIB VACCINES Aged Out No longer eligi ble based on patient's age to complete this topic MENINGOCOCCAL VACCINES (ACWY) Aged Out No longer eligible based on patient's age to complete this topic MENINGOCOCCAL VACCINES (B) Aged Out N o longer eligible based on patient's age to complete this topic Medical Devices Not on file Insurance MEDICARE PART A & B Member Subscriber Plan / Payer (Ef fective 2013-Present) Name:Zi Caruso Member ID:[id number] Relation to Subscriber:Self Name:Zi Caruso Subscriber ID:[id number] Payer ID:[id number] Group ID:Not on file Type:Medicare Address: [employer] [id number] GENERIC COMMERCIAL Member Subscriber Plan / Payer (Ef fective 2018-Present) Name:Zi Caruso Relation to Subscriber:Self Name:Zi Caruso Payer ID:Not on file Group ID:Not on file Type:[facility] Address: [place] [address] MEDICARE PART A & B GENERIC COMMERCIAL MEDICARE PART A & B GENERIC COMMERCIAL Member Subscriber Plan / Payer ( fective 2018-Present) Name:Zi Caruso Relation to Subscriber:Self Name:Zi Caruso Payer ID:Not on file Group ID:Not on file Type:[facility] Address: [place] [address] MEDICARE PART A & B GENERIC COMMERCIAL MEDICARE PART A & B GENERIC COMMERCIAL MEDICARE PART A & B GENERIC COMMERCIAL MEDICARE PART A & B GENERIC COMMERCIAL MEDICARE PART A & B GENERIC COMMERCIAL MEDICARE PART A & B GENERIC COMMERCIAL Care Teams Hostler Helper Relationship Specialty Start Date End Date Aaron Solis MD PCP - General 07/28/17 Additional Source Comments The information contained in this document represents components of the legal health record. It is not the complete legal health record.[facility]
--- NOTE | 2025-05-25 02:32 | ED.GENADULT ---
HPI - General Adult General Chief complaint: Wound/Laceration Stated complaint: left pinkie wound/smashed Time Seen by Provider: 05/25/25 00:56 Source: patient Limitations: no limitations History of Present Illness ED Provider: Yadira Schulte PA-C HPI narrative: 79-year-old male with a history of hypertension, AFib on apixaban, gout, who presents with left pinky injury. Patient states he was on a ladder, someone above him stepped on his hand, lacerating the pinky. Tetanus up-to-date. Related Data Home Medications ?Medication ?Instructions ?Recorded ?Confirmed allopurinol 300 mg tablet 300 mg PO DAILY 11/20/24 apixaban 5 mg tablet (Eliquis) 5 mg PO BID 11/20/24 cilostazol 50 mg tablet 50 mg PO BID 11/20/24 clopidogrel 75 mg tablet 75 mg PO DAILY 11/20/24 metoprolol succinate 50 mg 50 mg PO DAILY 11/20/24 tablet,extended release 24 hr [id number] 200 mcg-vit K 100 cap PO 11/20/24 mcg-lycop 500 [id number] capsule (Daily Multivitamin) tamsulosin 0.4 mg capsule 0.4 mg PO DAILY 11/20/24 Allergies Allergy/AdvReac Type Severity Reaction Status Date / Time No Known Allergies (No Known Allergy Verified 05/25/25 13:55 Allergies*) [facility] Social History Social History Smoked in Last 30 Days: No Use of substances other than those prescribed or required for medical reasons: No Advance Directives: No Advance Directives Information Provided: No Do you have a plan to hurt others: No Plan Physical Exam ED Vital Signs: Vital Signs - 24 hr 05/24/25 23:37 Temperature 97.5 F Pulse Rate 82 Respiratory Rate 18 Blood Pressure 114/62 Pulse Oximetry 97 Oxygen Delivery Method Room Air BMI result Body Mass Index 28.7 Medications Administered Discontinued Medications Generic Name Dose Route Start Last Admin Trade Name Freq PRN Reason Stop Dose Admin Lidocaine/Epinephrine 10 ml 05/25/25 01:35 05/25/25 02:58 Lidocaine Hcl 1%/Epi 1:100,000 10 Ml Vial INFILTRATI 05/25/25 01:36 5 ml ONCE ONE Administration Procedures Laceration Laceration 1: Site: hand Side (If applicable): left Size (cm): 2 Description: irregular Depth: simple, single layer Local Anesthetic: lidocaine 1% and with epi Amount of anesthesia used (mL): 3 Pre-repair: irrigated extensively Skin layer closed with: nylon Size (cm): 4-0 Number of sutures: 7 Technique: simple, interrupted Medical Decision Making Medical Decision Making MDM Narrative: 79-year-old male with a history of hypertension, AFib on apixaban, gout, who presents with left pinky injury. Patient states he was on a ladder, someone above him stepped on his hand, lacerating the pinky. Tetanus up-to-date. Problem: On apixaban History: Per patient I have considered the following differential diagnoses: Fracture, dislocation, contusion, sprain, laceration Plan: X-ray ordered from triage, there was no acute bony injury, the laceration will require simple repair. 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 Small fragments of the 1st interphalangeal joint appear old/chronic. Soft tissue gas and swelling include the 5th digit with overlying bandage artifacts. No acute displaced fracture of the hand. Additional erosions noted including metacarpal-phalangeal joints Vascular calcifications and soft tissue calcifications noted. With likely ligament calcification adjacent to 3rd distal interphalangeal joint. IMPRESSION: 1. No acute displaced fracture. 2. 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 Differential Diagnosis Differential Diagnoses: The differential diagnosis associated with the presentation includes See medical decision-making Admission/Observation Consideration of admission/observation: Escalation of care including admission/observation considered Not applicable Radiology Impression Discussion of test interpretation with radiology: I have reviewed the radiologist's reading. Discharge Plan Discharge Clinical Impression: Laceration of left little finger Patient Disposition: Home, Self-Care Instructions: Finger Laceration (ED) Additional Instructions: 7 stitches were used to repair the wound, they can be removed in 1 week. The x-ray of the hand was negative for fracture or dislocation. Keep the wound clean and dry, do not submerge it in water, you can shower normally, keep a clean dressing on the site. The finger is also contused or bruised. Hence the discoloration. You were given a medication to numb the finger and to help stop the bleeding. The coolness of the finger should normalize by the morning. If not, return to the emergency room. Otherwise follow up with your primary care in 1 week for suture removal. Prescriptions: No Action tamsulosin 0.4 mg capsule 0.4 mg PO DAILY allopurinol 300 mg tablet 300 mg PO DAILY Eliquis 5 mg tablet 5 mg PO BID cilostazol 50 mg tablet 50 mg PO BID clopidogrel 75 mg tablet 75 mg PO DAILY metoprolol succinate 50 mg tablet extended release 24 hr 50 mg PO DAILY Daily Multivitamin 200-100-500 mcg capsule PO Interventions: ED Discharge Assessment Last Done: 05/25/25 04:28 Discharge Date/Time: 05/25/25 04:29 Print Language: Thai
[2025-05-25] MEDS: Lidocaine HCl 1%/Epi 1:100,000 10 ML VIAL INFILTRATI (02:58)
[2025-05-25 04:27] VITALS: BP 127/76; PULSE 85; RESP 18; TEMP 36.4; O2SAT 96
[2025-05-25 04:28] VITALS: BP 127/76; PULSE 85; RESP 18; TEMP 36.4; O2SAT 96
== END 2025-05-25 04:29 | disposition home or self-care (01) ==
PROVIDERS: Emergency Provider Emergency Medicine; PCP Internal Medicine
DX: S61.217A Laceration without foreign body of left little finger without damage to nail, initial encounter (principal); M79.642 Pain in left hand; W45.8XXA Other foreign body or object entering through skin, initial encounter; Y93.9 Activity, unspecified; Y92.89 Other specified places as the place of occurrence of the external cause; Y99.8 Other external cause status
CPT/HCPCS: 12001; 73130; 99284; J2004

== ENCOUNTER → 2025-05-25 00:02 | Outpatient (BNV) | payer OTHER, SELFPAY | PROVIDERS: PCP Internal Medicine; Visit Provider Radiology Neuroradiology | DX: S69.92XD Unspecified injury of left wrist, hand and finger(s), subsequent encounter (principal); M19.042 Primary osteoarthritis, left hand | CPT/HCPCS: 73130 ==

== ENCOUNTER 2025-05-25 13:42 | Emergency (ER) | payer OTHER, SELFPAY ==
--- OUTSIDE RECORDS SUMMARY | 2024-05-29 06:30 | XMS_ITS | Encounter Summary ---
Author Name [facility] [place] [facility] [place] Address [address] [place] [address] Care Team Providers Care Customer Relations Representative Name Role Phone LETICIA WALDEN Primary Care Provider Unavailabl e Insurance Providers: All historical and current Section Date Range: From patient's date of to the date document was created. This section includes the names of all active insurance providers for the patient. Insurance Provider Type of Coverage Plan Name Start of Policy Coverage End of Policy Coverage Group Number Member ID Insurance Provider's Telephone Number Policy Collins's Name Patient's Relationship to Policy Collins MEDICARE (WNR) MEDICARE () PART B Apr 24, 2013 PART B [id number] [phone] [id number] KLEBER DYE RY PATIENT MEDICARE (WNR) MEDICARE () PART B Apr 24, 2013 PART B [id number] [facility] [phone] KLEBER DYE RY PATIENT MEDICARE (WNR) MEDICARE () PART B Apr 24, 2013 PART B [id number] [phone] KLEBER DYE RY PATIENT MEDICARE (WNR) MEDICARE () PART A November 23, 2011 PART A [id number] KLEBER DYE RY PATIENT MEDICARE (WNR) MEDICARE () PART A November 23, 2011 PART A [id number] [phone] [id number] KLEBER DYE RY PATIENT MEDICARE (WNR) MEDICARE () PART A November 23, 2011 PART A [id number] KLEBER DYE PATIENT [employer] PLAN G PLAN G Apr 24, 2013 PLAN G [id number] KLEBER DYE PATIENT [employer] PLAN G Apr 24, 2013 PLANG [id number] KLEBER DYE PATIENT [employer] PL[employer] G PLANG Apr 24, 2013 PLANG [id number] KLEBER DYE PATIENT Selected Encounter This section includes the information on record at [place] for the Encounter. Date/Time Encounter Type Encounter Description Reason Provider Source May 29, 2024 10:30 AM THERAPEUTIC EXERCISES OCCUPATIONAL THERAPY ICD-10-CM M25.512 Pain in left shoulder PAM JEFFERSON IHE Encounter Template Text not used by [place] Assessments - Encounter Diagnoses This section includes the primary and secondary diagnoses documented for the Encounter. Date/Time Primary/Secondary Diagnosis Diagnosis Name Provider Source Jun 09, 2024 07:14 AM PRIMARY Pain in left shoulder BRAULIO JEFFERSONLIE E [place] [facility] Plan of Treatment: Future Appointments (+ 6 months) and Future Tests (+/- 45 days) The Plan of Treatment section includes future care activities for the patient from all [place] treatmentfacilities. This section includes future appointments and future orders which are active, pending or scheduled. Future Appointments This section includes appointments that were scheduled to occur 6 months from the date of the Encounter, up to a maximum of 20 appointments. The data comes from all [place] treatment facilities. Appointment Date/Time Appointment Type Appointme nt Facility Name Jun 05, 2024 10:00 AM AMBULATORY - [facility] Jun 07, 2024 03:00 PM [place] [facility] Jun 12, 2024 10:00 AM AMBULATORY - REHAB MEDICIN [facility] Jun 14, 2024 10:30 AM AMBULATORY - NONE [facility] Jun 15, 2024 02:00 PM [place] [facility] Jun 26, 2024 10:30 AM AMBULATORY - REHAB MEDICIN E [facility] Jun 26, 2024 01:00 PM AM[facility]ULATORY [facility]INE [facility] Jul 03, 2024 10:30 AM AMBULATORY - REHAB MEDICIN E [facility] Jul 10, 2024 10:30 AM AMBULATORY - REHAB MEDICIN E [facility] Jul 12, 2024 10:30 AM [facility]INE [facility] Jul 24, 2024 10:00 AM AMBULATORY - REHAB MEDICIN E [facility] Aug 09, 2024 10:00 AM AM[facility]UL[facility]ICINE [facility] Aug 10, 2024 10:00 AM AMBULATORY - REHAB MEDICIN E [facility] Aug 14, 2024 11:00 AM [facility]ICINE [facility] Aug 27, 2024 11:00 AM AMBULATORY - NONE [facility] Aug 28, 2024 10:30 AM AMBULATORY - REHAB MEDICIN E [facility] Sep 12, 2024 01:00 PM AMBULATORY - REHAB MEDICIN E [facility] Oct 04, 2024 03:00 PM AM[facility]ULATORY [facility]ICINE [facility] Oct 16, 2024 10:00 AM [facility]ICINE [facility] Social History: Smoking Status (Most current) and Tobacco Use (All prior to encounter date) This section includes the most current, and the historical, smoking and tobacco- related health factors from the [place] facility where the Encounter took place. Current Smoking Status This section includes the most current smoking, or tobacco-related health factor, from the [place] facility where the Encounter took place. Date/Time Current Smoking Status Comment Facil ity Apr 23, 2024 10:00 AM VA-TOBACCO FORMER USER [facility] Tobacco Use History This section includes a history of the smoking, or tobacco-related health factors, that were collected on or before the date of the Encounter. The data comes from the [place] facility where the Encounter took place. Date/Time Smoking Status/Tobac co Use Comment Facility Apr 23, 2024 10:00 AM VA-TOBACCO QUIT 5 TO < 15 YRS [facility] Apr 13, 2023 11:00 AM VA-TOBACCO FORMER USER [facility] Apr 13, 2023 11:00 AM VA-TOBACCO QUIT 5 TO < 15 YRS [facility] Apr 14, 2022 01:30 PM VA-TOBACCO FORMER USER [facility] Apr 14, 2022 01:30 PM VA-TOBACCO QUIT 5 TO < 15 YRS [facility] Apr 10, 2021 10:00 AM VA-TOBACCO FORMER USER [facility] Apr 10, 2021 10:00 AM VA-TOBACCO QUIT 5 TO < 15 YRS [facility] Apr 02, 2020 10:30 AM VA-TOBACCO FORMER USER [facility] Apr 02, 2020 10:30 AM VA-TOBACCO QUIT 5 TO < 15 YRS [facility] Sep 29, 2018 08:52 AM VA-TOBACCO FORMER USER [facility] Sep 29, 2018 08:52 AM VA-TOBACCO QUIT 15 YRS OR MORE [facility] December 21, 2017 12:27 PM QUIT TOBACCO USE 1-7 YEARS AGO 5 or 6 years ago [facility] May 19, 2017 10:21 AM QUIT TOBACCO USE 1-7 YEARS AGO [facility] Aug 19, 2016 09:56 AM QUIT TOBACCO USE 1-7 YEARS AGO [facility] Feb 12, 2016 11:34 AM QUIT TOBACCO USE 1-7 YEARS AGO [facility] Aug 08, 2015 03:04 PM QUIT TOBACCO USE 1-7 YEARS AGO [facility] Aug 08, 2015 03:04 PM QUIT TOBACCO USE IN PAST YEAR pt states he stooped smmoking in the past yr. [facility] Advance Directives: All historical and current Section Date Range: From patient's date of to the date document was created. This section includes ALL of a patient's completed or amended [place] Advance and Rescinded Directives. The entries below indicate that a directive exists for the patient, but an actual copy is not included with this document. The data comes from all [place] facilities. Date Advance Directives Provider Source Jun 20, 2012 ADVANCE DIRECTIVE DISCUSSION MONIKA IZAGUIRRE [facility] Radiology Reports: +/- 30 days of the encounter Radiology Reports For cases when an order for radiology services may have been completed prior to the date of the Encounter, the report list includes the Radiology Reports that were completed up to 30 days before dateof the Encounter. For cases when an order for radiology services may have been completed after the date of the Encounter, the report list also includes the Radiology Reports that were completed up to30 days after date of the Encounter. The data comes from all [place] treatment facilities. Date/Time Radiology Report Provider Source Jun 14, 2024 10:20 AM LDCT LUNG CANCER SCREENING: SANCHO DYE [id number] -[id number] M Exm Date: JUN 14, 2024@10:20 Req Phys: LETICIA WALDEN Loc: [facility]/NO/LCS ADMIN (Req'g Loc) Img Loc: [facility]/CT Service: [place] [facility] [address] (Case [id number] COMPLETE) LDCT LUNG CANCER SCREENING (CT Detailed) CPT:07960 Reason for Study: LUNG CANCER SCREENING Clinical History: 53 TPY-Quit 2012 Prior chest imaging: CT scan the chest from May 25, 2022, May 07, 2021, April 29, 2020, April 18, 2019 and December 12, 2017. [facility] LDCT on 06/15/2023: LR 1 Report Status: Verified Date Reported: JUN 14, 2024 Date Verified: JUN 14, 2024 Paperback Machine Operator E-Sig:/ES/MIRTA NAVAS JR Report: Study: Lung cancer screening CT of the chest. Provided History: Lung cancer screening. Comparison: CT scan of the chest from June 15, 2023, May 25, 2022, May 07, 2021, April 29, 2020 and April 18, 2019. Technique: 1 mm lung algorithm and 3 mm soft tissue algorithm axial reconstructions from the lung apices through the lung bases without the administration of intravenous contrast as per standard department protocol for lung cancer screening. Subsequently, sagittal and coronal reformats were generated. MIP images also provided and reviewed. Secondary computer-aided detection with post-processing from [employer]INK is used. The lack of intravenous contrast inherently limits the evaluation of hilar structures, vascular structures, and abnormal enhancement patterns. Lower than standard dose was utilized limiting sensitivity for fine parenchymal detail. Dose Parameters: CTDI(vol): 2.5 mGy. DLP: 93.8 mGy*cm. Findings: Lungs: Emphysema: Mild centrilobular and paraseptal emphysematous changes with associated scattered parenchymal scarring is unchanged. Index Nodule: Stable 5.3 mm solid, ovoid, well-circumscribed left upper lobe pulmonary nodule, 8-58. Other Nodules: Stable 5.9 mm solid, linear, well-circumscribed, juxtapleural right middle lobe pulmonary nodule, 8-240. Stable 5.4 mm solid, curvilinear, juxtapleural left upper lobe pulmonary nodule, 8-59. Lungs/airway findings: Multiple scattered bilateral punctate calcified granulomata are again seen. Mild dependent changes at the lung bases. No acute pulmonary process or pleural effusion is identified. The tracheobronchial tree is patent and normal. Heart, mediastinum and lymph nodes: The heart size is normal. No pericardial effusion identified. Normal caliber thoracic aorta. Small amount of fluid unchanged in the superior pericardial recess adjacent to the thoracic aorta. No mediastinal or hilar lymphadenopathy by size criteria. No axillary lymphadenopathy by size criteria. Normal caliber thoracic aorta. Normal caliber pulmonary arteries. Visualized coronary artery calcifications: Atherosclerotic changes of the aorta and coronary arteries. Upper abdomen: Small hiatal hernia. 4 mm punctate left renal pelvis calcification, likely vascular. Bones and soft tissues: Normal age-related degenerative changes present. No acute bony abnormality identified. Other findings: None. Impression: No acute pulmonary process identified. Lung-RADS Assessment: Category 2, benign appearance or behavior. Recommendation: Continue annual screening with lung cancer screening CT in 12 months. Other Significant Findings and Recommendations: None. Primary Diagnostic Code: No immediate attention required Secondary Diagnostic Codes: LUNGRADS 2: BENIGN APPEARANCE OR BEHAVIOR Primary Interpreting Staff: MIRTA NAVAS JR, Radiologist (Paperback Machine Operator) /MIRTA CASIANO JR [place] [facility] Encounter Notes: All associated encounter notes This section contains the clinical notes associated to the Encounter. Date/Time Encounter Note(s) Provider Source May 29, 2024 10:27 AM OCCUPATIONAL THERAPY NOTE: LOCAL TITLE: OCCUPATIONAL THERAPY STANDARD TITLE: OCCUPATIONAL THERAPY NOTE DATE OF NOTE: MAY 29, 2024@10:27 ENTRY DATE: MAY 29, 2024@10:28:03 AUTHOR: PAM JEFFERSON COSIGNER: URGENCY: STATUS: COMPLETED Initial Evaluation date: Mar Progress Note Date: Treatment #: 6 Treatment time: 30 minutes Diagnosis: Pain in left Shoulder(ICD-10-CM M25.512) Provider: Irma DIAZ Treatment Precautions: Patient identified by full name and date of SUBJECTIVE: Pt reports that his shoulder still bothers him. Pain level: 1.5-2/10 at rest OBJECTIVE: THERAPEUTIC EXERCISE: *UBE 2' forward, 2' backward 2.0 *pulleys into flexion w/ 10 second hold, 1x10 *wall slides into flexion, 1x10 *pec stretch in doorway, 30 seconds x3 *supine chest press, 1x10 *supine shoulder flexion, 1x10 *ABC's in supine, x1 *shoulder rows w/ blue band, 2x10 Access Code: [email or web address] URL: [email or web address] Date: 05/01/2024 Prepared by: [facility] Exercises - Seated Shoulder Flexion AAROM with Vin Behind - 1 x daily - 7 x weekly - 3 sets - 10 reps - 10 hold - Shoulder Flexion Wall Slide with Towel - 1 x daily - 7 x weekly - 3 sets - 10 reps - Seated Shoulder Flexion Towel Slide at Table Top - 1 x daily - 7 x weekly - 3 sets - 10 reps - Doorway Pec Stretch at 60 Elevation - 1 x daily - 7 x weekly - 3 sets - 3 reps - 30 hold - Split Stance Shoulder Row with Resistance - 1 x daily - 7 x weekly - 3 sets - 10 reps - Shoulder Extension with Resistance - 1 x daily - 7 x weekly - 3 sets - 10 reps - Supine Shoulder Press - 1 x daily - 7 x weekly - 3 sets - 10 reps - Supine Shoulder Flexion Extension Full Range AROM - 1 x daily - 7 x weekly - 3 sets - 10 reps MINUTES: 15 MANUAL THERAPY: *mobilization to upper trap/infra and medial border of the scap musculature, anterior shoulder musculature, supine MINUTES: 9 THERAPEUTIC DYNAMIC ACTIVITIES: MINUTES: NEUROMUSCULAR EDUCATION: MINUTES: OTHER: MINUTES: MODALITIES: *MHP to L shoulder prior to tx MINUTES: 3 [] Contraindication screen completed prior to modality [] Skin intact pre/post SELF CARE/EDUCATION: MINUTES: Patient education was provided for all aspects of care during this clinical encounter. ASSESSMENT: pt tolerated tx well this date. low level pain present but nagging. adhesion palpable in levator and upper trap. trialed stretching the lats to see if this alleviates tightness/discomfort. pt reported feeling the same following tx. he will try to sleep in bed and see if this has improved or not. PLAN: continue w/ OT POC; modify tx as needed. pt is in agreement w/ this POC. /glenis/ Pam Jefferson, MS OTR/Malini, CHT Occupational Therapist Signed: 05/29/2024 16:14 PAM JEFFERSON [facility]
--- OUTSIDE RECORDS SUMMARY | 2024-06-05 06:00 | XMS_ITS | Encounter Summary ---
Author Name [facility] [place] [facility] [place] Address [address] [place] [address] Care Team Providers Care Talent Acquisition Operations Manager Name Role Phone LETICIA WALDEN Primary Care [...] PART B Apr 24, 2013 PART B [id number] KLEBER DYE RY PATIENT MEDICARE (WNR) MEDICARE () PART B Apr 24, 2013 PART B [id number] [phone] [id number] KLEBER DYE RY PATIENT MEDICARE (WNR) MEDICARE () PART B Apr 24, 2013 PART B [id number] KLEBER DYE RY PATIENT MEDICARE (WNR) MEDICARE () PART A November 23, 2011 PART A [id number] KLEBER DYE RY PATIENT MEDICARE (WNR) MEDICARE () PART A November 23, 2011 PART A [id number] [id number] KLEBER DYE RY PATIENT MEDICARE (WNR) MEDICARE () PART A November 23, 2011 PART A [id number] KLEBER DYE PATIENT [employer] PLAN G PLAN G Apr 24, 2013 PLAN G [id number] KLEBER DYE PATIENT [employer] PLAN G PLANG Apr 24, 2013 PLANG [id number] KLEBER DYE PATIENT [employer] PLAN G Apr 24, 2013 PLANG [id number] KLEBER DYE PATIENT Selected Encounter This section includes the information [place] for the Encounter. Date/Time Encounter Type Encounter Description Reason Provider Source Jun 05, 2024 10:00 AM THERAPEUTIC EXERCISES OCCUPATIONAL THERAPY ICD-10-CM M25.512 Pain in left shoulder TAO JEFFERSONE Greta IHE Encounter Template Text not used by [place] Assessments - Encounter Diagnoses This section includes the primary and secondary diagnoses documented for the Encounter. Date/Time Primary/Secondary Diagnosis Diagnosis Name Provider Source Jun 16, 2024 07:26 AM PRIMARY Pain in left shoulder RONNYPAM E [place] [facility] [place] [facility] Plan of Treatment: Future Appointments (+ 6 months) and Future Tests (+/- 45 days) The Plan of Treatment section includes future care activities for the patient [facility] [place] [facility] This section includes future appointments and future orders which are active, pending or scheduled. Future Appointments This section includes appointments that were scheduled to occur 6 months from the date of the Encounter, up to a maximum of 20 appointments. The data comes from all [place] treatment facilities. Appointment Date/Time Appointment Type Appointme nt Facility Name Jun 07, 2024 03:00 PM AMBULATORY - MEDICINE [place] [facility] [place] [facility] Jun 12, 2024 10:00 AM AMBULATORY - REHAB MEDICIN E [place] [facility] [place] [facility] Jun 14, 2024 10:30 AM AMBULATORY - NONE [place] [facility] [place] [facility] Jun 15, 2024 02:00 PM AMBULATORY - MEDICINE [place] [facility] [place] [facility] Jun 26, 2024 10:30 AM AMBULATORY - REHAB MEDICIN E [place] [facility] [place] [facility] Jun 26, 2024 01:00 PM AMBULATORY - MEDICINE [place] [facility] [place] [facility] Jul 03, 2024 10:30 AM AMBULATORY - REHAB MEDICIN E [facility] [place] [facility] Jul 10, 2024 10:30 AM AMBULATORY - REHAB MEDICIN E [facility] [place] [facility] Jul 12, 2024 10:30 AM AMBULATORY - MEDICINE [place] [facility] [place] [facility] Jul 24, 2024 10:00 AM AMBULATORY - REHAB MEDICIN E [facility] [place] [facility] Aug 09, 2024 10:00 AM AMBULATORY - MEDICINE [place] [facility] [place] [facility] Aug 10, 2024 10:00 AM AMBULATORY - REHAB MEDICIN E [facility] [place] [facility] Aug 14, 2024 11:00 AM AMBULATORY - MEDICINE [place] [facility] [place] [facility] Aug 27, 2024 11:00 AM AMBULATORY - NONE [place] [facility] [place] [facility] Aug 28, 2024 10:30 AM AMBULATORY - REHAB MEDICIN E [place] [facility] [place] [facility] Sep 12, 2024 01:00 PM AMBULATORY - REHAB MEDICIN E [facility] [place] [facility] Oct 04, 2024 03:00 PM AMBULATORY - MEDICINE [place] [facility] [place] [facility] Oct 16, 2024 10:00 AM AMBULATORY - MEDICINE [place] [facility] [place] [facility] Social History: Smoking Status (Most current) and Tobacco Use (All prior to encounter date) This section includes the most current, and the historical, smoking and tobacco- related health factors from the [place] facility where the Encounter took place. Current Smoking Status This section includes the most current smoking, or tobacco-related health factor, from the [place] facility where the Encounter took place. Date/Time Current Smoking Status Comment Facil it Apr 23, 2024 10:00 AM VA-TOBACCO QUIT 5 TO < 15 YRS [place] [facility] [place] [facility] Tobacco Use History This section includes a history of the smoking, or tobacco-related health factors, that were collected on or before the date of the Encounter. The data comes from the [place] facility where the Encounter took place. Date/Time Smoking Status/Tobac co Use Comment Facility Apr 23, 2024 10:00 AM VA-TOBACCO QUIT 5 TO < 15 YRS [facility] [place] [facility] Apr 13, 2023 11:00 AM VA-TOBACCO FORMER USER [place] [facility] [place] [facility] Apr 13, 2023 11:00 AM VA-TOBACCO QUIT 5 TO < 15 YRS [facility] [place] [facility] Apr 14, 2022 01:30 PM VA-TOBACCO FORMER USER [facility] [place] [facility] Apr 14, 2022 01:30 PM VA-TOBACCO QUIT 5 TO < 15 YRS [facility] [place] [facility] Apr 10, 2021 10:00 AM VA-TOBACCO FORMER USER [facility] [place] [facility] Apr 10, 2021 10:00 AM VA-TOBACCO QUIT 5 TO < 15 YRS [facility] [place] [facility] Apr 02, 2020 10:30 AM VA-TOBACCO FORMER USER [facility] [place] [facility] Apr 02, 2020 10:30 AM VA-TOBACCO QUIT 5 TO < 15 YRS [facility] [place] [facility] Sep 29, 2018 08:52 AM VA-TOBACCO FORMER USER [facility] [place] [facility] Sep 29, 2018 08:52 AM VA-TOBACCO QUIT 15 YRS OR MORE [facility] [place] [facility] December 21, 2017 12:27 PM QUIT TOBACCO USE 1-7 YEARS AGO 5 or 6 years ago [facility] [place] [facility] May 19, 2017 10:21 AM QUIT TOBACCO USE 1-7 YEARS AGO [facility] [place] [facility] Aug 19, 2016 09:56 AM QUIT TOBACCO USE 1-7 YEARS AGO [facility] [place] [facility] Feb 12, 2016 11:34 AM QUIT TOBACCO USE 1-7 YEARS AGO [facility] [place] [facility] Aug 08, 2015 03:04 PM QUIT TOBACCO USE 1-7 YEARS AGO [facility] [place] [facility] Aug 08, 2015 03:04 PM QUIT TOBACCO USE IN PAST YEAR pt states he stooped smmoking in the past yr. [place] [facility] [place] [facility] Advance Directives: All historical and current Section Date Range: From patient's date of to the date document was created. This section includes ALL of a patient's completed or amended [place] Advance and Rescinded Directives. The entries below indicate that a directive exists for the patient, but an actual copy is not included with this document. The data comes from all [place] facilities. Date Advance Directives Provider Source Jun 20, 2012 ADVANCE DIRECTIVE DISCUSSION MONIKA IZAGUIRRE [facility] Reports: +/- 30 days of the [...] the Encounter. The data comes from all [place] treatment facilities. Date/Time Radiology Report Provider Source Jun 14, 2024 10:20 AM LDCT LUNG CANCER SCREENING: DYESANCHO [id number] -[id number] M Exm Date: JUN 14, 2024@10:20 Req Phys: LETICIA WALDEN Loc: ZZCWM/NO/LCS ADMIN (Req'g Loc) Img Loc: [place]/CT Service: [place] [address] (Case [id number] COMPLETE) LDCT LUNG CANCER SCREENING (CT Detailed) CPT:13711 Reason for Study: LUNG CANCER SCREENING Clinical History: 53 TPY-Quit 2012 Prior chest imaging: CT scan the chest from May 25, 2022, May 07, 2021, April 29, 2020, April 18, 2019 and December 12, 2017. LCS LDCT on 06/15/2023: LR 1 Report Status: Verified Date Reported: JUN 14, 2024 Date Verified: JUN 14, 2024 Hospital Admissions Officer E-Sig:/ES/MIRTA NAVAS JR Report: Study: Lung cancer [...] reviewed. Secondary computer-aided detection with post-processing from [employer] is used. The lack of intravenous contrast [...] Primary Interpreting Staff: MIRTA NAVAS JR, Radiologist (Hospital Admissions Officer) /MIRTA CASIANO JR [place] [facility] [place] [facility] Encounter Notes: All associated encounter notes This section contains the clinical notes associated to the Encounter. Date/Time Encounter Note(s) Provider Source Jun 05, 2024 10:05 AM OCCUPATIONAL THERAPY NOTE: LOCAL TITLE: OCCUPATIONAL THERAPY STANDARD TITLE: OCCUPATIONAL THERAPY NOTE DATE OF NOTE: JUN 05, 2024@10:05 ENTRY DATE: JUN 05, 2024@10:05:27 AUTHOR: PAM JEFFERSON COSIGNER: URGENCY: STATUS: COMPLETED Initial Evaluation date: Mar Progress Note Date: Treatment #: 7 Treatment time: 30 minutes Diagnosis: Pain in left Shoulder(ICD-10-CM M25.512) Provider: Irma DIAZ Treatment Precautions: Patient identified by full name and date of SUBJECTIVE: Pt reports that his shoulder is a little stiff. Pain level: 1.5-2/10 at rest OBJECTIVE: THERAPEUTIC EXERCISE: *UBE 2' forward, 2' backward 2.0 *pulleys into flexion w/ 10 second hold, 1x10 *wall slides into flexion, 1x10 *shoulder rows w/ blue band, 2x10 *shoulder extensions w/ blue band, 2x10 *pec stretch in doorway, 30 seconds x3 Access Code: [email or web address] URL: [email or web address] Date: 05/01/2024 Prepared by: PARUL [facility] Exercises - Seated Shoulder Flexion AAROM [...] of the scap musculature, anterior shoulder musculature, seated MINUTES: 9 THERAPEUTIC DYNAMIC ACTIVITIES: MINUTES: NEUROMUSCULAR EDUCATION: MINUTES: OTHER: MINUTES: MODALITIES: *MHP to L shoulder prior to tx MINUTES: 3 [] Contraindication screen completed prior to modality [] Skin intact pre/post SELF CARE/EDUCATION: MINUTES: Patient education was provided for all aspects of care during this clinical encounter. ASSESSMENT: pt tolerated tx well this date. pt continues w/ low level of pain at rest. focused on scapular strengthening and pec stretch this date. also reminded pt to stretch the L shoulder w/ the pulleys, which he hasn't been doing. during mobilization, much improved tightness and adhesions throughout periscapular musculature. pt reported some soreness following tx. PLAN: continue w/ OT POC; modify tx as needed. pt is in agreement w/ this POC. /glenis/ Pam Jefferson, MS OTR/Malini, CHT Occupational Therapist Signed: 06/05/2024 14:44 PAM JEFFERSON [facility]
--- OUTSIDE RECORDS SUMMARY | 2024-06-12 06:00 | XMS_ITS | Encounter Summary ---
Author Name [facility] [place] [facility] [place] Organization [facility] [place] Address [address] [place] [address] Care Team Providers Care Polymerization Helper Name Role Phone LETICIA WALDEN Primary Care [...] PART B Apr 24, 2013 PART B [id number] KLEBER DYE RY PATIENT MEDICARE (WNR) MEDICARE () PART B Apr 24, 2013 PART B [id number] [facility] KLEBER DYE RY PATIENT MEDICARE (WNR) MEDICARE () PART B Apr 24, 2013 PART B [id number] [phone] [id number] KLEBER DYE RY PATIENT MEDICARE (WNR) MEDICARE () PART A November 23, 2011 PART A [id number] [phone] [id number] KLEBER DYE RY PATIENT MEDICARE (WNR) MEDICARE () PART A November 23, 2011 PART A [id number] [id number] [id number] KLEBER DYE RY PATIENT MEDICARE (WNR) MEDICARE () PART A November 23, 2011 PART A [id number] KLEBER DYE PATIENT [employer] PLAN G PLAN G Apr 24, 2013 PLAN G [id number] [phone] KLEBER DYE PATIENT [employer] PLAN G Apr 24, 2013 PLANG [id number] KLEBER DYE PATIENT [employer] PLAN G PLANG Apr 24, 2013 PLANG [id number] KLEBER DYE PATIENT Selected Encounter This section includes the information on record at [place] for the Encounter. Date/Time Encounter Type Encounter Description Reason Provider Source Jun 12, 2024 10:00 AM THERAPEUTIC EXERCISES OCCUPATIONAL THERAPY ICD-10-CM M25.512 Pain in left shoulder TAO JEFFERSONE Greta IHE Encounter Template Text not used by [place] Assessments - Encounter Diagnoses This section includes the primary and secondary diagnoses documented for the Encounter. Date/Time Primary/Secondary Diagnosis Diagnosis Name Provider Source Jun 30, 2024 06:10 AM PRIMARY Pain in left shoulder RONNYPAM E [place] [facility] [place] [facility] Plan of Treatment: Future Appointments (+ 6 months) and Future Tests (+/- 45 days) The Plan of Treatment section includes future care activities for the patient from all [place] treatmentfacilities. This section includes future appointments and future orders which are active, pending or scheduled. Future Appointments This section includes appointments that were scheduled to occur 6 months from the date of the Encounter, up to a maximum of 20 appointments. The data comes from all [place] treatment facilities. Appointment Date/Time Appointment Type Appointme nt Facility Name Jun 14, 2024 10:30 AM AMBULATORY - NONE [place] [facility] [place] [facility] Jun 15, 2024 02:00 PM AMBULATORY - MEDICINE [place] [facility] [place] [facility] Jun 26, 2024 10:30 AM AMBULATORY - REHAB MEDICIN E [place] [facility] [place] [facility] Jun 26, 2024 01:00 PM AMBULATORY - MEDICINE [place] [facility] [place] [facility] Jul 03, 2024 10:30 AM AMBULATORY - REHAB MEDICIN E [place] [facility] [place] [facility] Jul 10, 2024 10:30 AM AMBULATORY - REHAB MEDICIN E [place] [facility] [place] [facility] Jul 12, 2024 10:30 AM AMBULATORY - MEDICINE [place] [facility] [place] [facility] Jul 24, 2024 10:00 AM AMBULATORY - REHAB MEDICIN E [place] [facility] [place] [facility] Aug 09, 2024 10:00 AM AMBULATORY - MEDICINE [place] [facility] [place] [facility] Aug 10, 2024 10:00 AM AMBULATORY - REHAB MEDICIN E [place] [facility] [place] [facility] Aug 14, 2024 11:00 AM AMBULATORY - MEDICINE [place] [facility] [place] [facility] Aug 27, 2024 11:00 AM AMBULATORY - NONE [place] [facility] [place] [facility] Aug 28, 2024 10:30 AM AMBULATORY - REHAB MEDICIN E [place] [facility] [place] [facility] Sep 12, 2024 01:00 PM AMBULATORY - REHAB MEDICIN E [place] [facility] [place] [facility] Oct 04, 2024 03:00 PM AMBULATORY - MEDICINE [place] [facility] [place] [facility] Oct 16, 2024 10:00 AM AMBULATORY - MEDICINE [place] [facility] [place] [facility] Social History: Smoking Status (Most current) and Tobacco Use (All prior to encounter date) This section includes the most current, and the historical, smoking and tobacco- related health factors from the [place] facility where the Encounter took place. Current Smoking Status This section includes the most current smoking, or tobacco-related health factor, from the [place] facility where the Encounter took place. Date/Time Current Smoking Status Comment [facility] Apr 23, 2024 10:00 AM VA-TOBACCO FORMER USER [place] [facility] [place] [facility] Tobacco Use History This section includes a history of the smoking, or tobacco-related health factors, that were collected on or before the date of the Encounter. The data comes from the [place] facility where the Encounter took place. Date/Time Smoking Status/Tobac co Use Comment Facility Apr 23, 2024 10:00 AM VA-TOBACCO QUIT 5 TO < 15 YRS [facility] [place] [facility] Apr 13, 2023 11:00 AM VA-TOBACCO FORMER USER [place] [facility] [place] [facility] Apr 13, 2023 11:00 AM VA-TOBACCO QUIT 5 TO < 15 YRS [facility] [place] [facility] Apr 14, 2022 01:30 PM VA-TOBACCO FORMER USER [facility] [place] [facility] Apr 14, 2022 01:30 PM VA-TOBACCO QUIT 5 TO < 15 YRS [facility] [place] [facility] Apr 10, 2021 10:00 AM VA-TOBACCO FORMER USER [facility] [place] [facility] Apr 10, 2021 10:00 AM VA-TOBACCO QUIT 5 TO < 15 YRS [facility] [place] [facility] Apr 02, 2020 10:30 AM VA-TOBACCO FORMER USER [facility] [place] [facility] Apr 02, 2020 10:30 AM VA-TOBACCO QUIT 5 TO < 15 YRS [facility] [place] [facility] Sep 29, 2018 08:52 AM VA-TOBACCO FORMER USER [place] [facility] [place] [facility] Sep 29, 2018 08:52 AM VA-TOBACCO QUIT 15 YRS OR MORE [facility] [place] [facility] December 21, 2017 12:27 PM QUIT TOBACCO USE 1-7 YEARS AGO 5 or 6 years ago [facility] [place] [facility] May 19, 2017 10:21 AM QUIT TOBACCO USE 1-7 YEARS AGO [facility] [place] [facility] Aug 19, 2016 09:56 AM QUIT TOBACCO USE 1-7 YEARS AGO [facility] [place] [facility] Feb 12, 2016 11:34 AM QUIT TOBACCO USE 1-7 YEARS AGO [facility] [place] [facility] Aug 08, 2015 03:04 PM QUIT TOBACCO USE 1-7 YEARS AGO [facility] [place] [facility] Aug 08, 2015 03:04 PM QUIT TOBACCO USE IN PAST YEAR pt states he stooped smmoking in the past yr. [place] [facility] [place] [facility] Advance Directives: All historical and current Section Date Range: From patient's date of to the date document was created. This section includes ALL of a patient's completed or amended [place] Advance and Rescinded Directives. The entries below indicate that a directive exists for the patient, but an actual copy is not included with this document. The data comes from all [place] facilities. Date Advance Directives Provider Source Jun 20, 2012 ADVANCE DIRECTIVE DISCUSSION MONIKA IZAGUIRRE [facility] Radiology Reports: +/- 30 days of the [...] the Encounter. The data comes from all [place] treatment facilities. Date/Time Radiology Report Provider Source Jun 14, 2024 10:20 AM LDCT LUNG CANCER SCREENING: SANCHO DYE EDILBERTO [id number] -[id number] M Exm Date: JUN 14, 2024@10:20 Req Phys: LETICIA WALDEN Loc: ZZCWM/NO/LCS ADMIN (Req'g Loc) Img Loc: [facility]/CT Service: [place] [address] (Case [id number] COMPLETE) LDCT LUNG CANCER SCREENING (CT Detailed) CPT:71687 Reason for Study: LUNG CANCER SCREENING Clinical History: 53 TPY-Quit 2012 Prior chest imaging: CT scan the chest from May 25, 2022, May 07, 2021, April 29, 2020, April 18, 2019 and December 12, 2017. LCS LDCT on 06/15/2023: LR 1 Report Status: Verified Date Reported: JUN 14, 2024 Date Verified: JUN 14, 2024 Masonry Installer E-Sig:/ES/MIRTA NAVAS JR Report: Study: Lung cancer [...] reviewed. Secondary computer-aided detection with post-processing from [employer] is used. The lack of intravenous contrast [...] Primary Interpreting Staff: MIRTA NAVAS JR, Radiologist (Masonry Installer) /MIRTA CASIANO JR [place] [facility] [place] [facility] Encounter Notes: All associated encounter notes This section contains the clinical notes associated to the Encounter. Date/Time Encounter Note(s) Provider Source Jun 12, 2024 09:51 AM OCCUPATIONAL THERAPY NOTE: LOCAL TITLE: OCCUPATIONAL THERAPY STANDARD TITLE: OCCUPATIONAL THERAPY NOTE DATE OF NOTE: JUN 12, 2024@09:51 ENTRY DATE: JUN 12, 2024@09:51:48 AUTHOR: PAM JEFFERSON COSIGNER: URGENCY: STATUS: COMPLETED Initial Evaluation date: Mar Progress Note Date: Treatment #: 8 Treatment time: 30 minutes Diagnosis: Pain in left Shoulder(ICD-10-CM M25.512) Provider: Irma DIAZ Treatment Precautions: Patient identified by full name and date of SUBJECTIVE: Pt reports that he slept in his bed last Tuesday night and woke up around 4:30 in a lot of pain. He's been taking Tylenol since then. Pain level: 5-6/10 at rest OBJECTIVE: THERAPEUTIC EXERCISE: *UBE 2' forward, 2' backward 2.0 *pulleys into flexion w/ 10 second hold, 1x10 *wall slides into flexion, 1x10 *shoulder rows w/ blue band, 2x10 *shoulder extensions w/ blue band, 2x10 *pec stretch in doorway, 30 seconds x3 Access Code: [email or web address] URL: [email or web address] Date: 05/01/2024 Prepared by: PARUL [facility] Exercises - Seated Shoulder Flexion AAROM [...] ASSESSMENT: pt tolerated tx well this date. he unfortunately has had a setback since attempting to sleep in his bed. pain is much higher at rest. able to perform his HEP w/o an increase in pain. very little tightness throughout periscapular musculature w/ mild ttp. discussed scheduling an appointment w/ Chiro as his sx's seem more c-spine related. pt will see if he can do this. PLAN: continue w/ OT POC; modify tx as needed. added on 3 more visits. pt is in agreement w/ this POC. /glenis/ Pam Jefferson, MS OTR/Malini, T Occupational Therapist Signed: 06/12/2024 10:37 PAM JEFFERSON [facility]
--- OUTSIDE RECORDS SUMMARY | 2024-06-14 09:41 | XMS_ITS | Encounter Summary ---
Author Name [facility] [place] [facility] [place] [facility] [place] [facility] [place] Address [address] [place] [address] Care Team Providers Care Adult Neurologist Name Role Phone AARON WALDEN Primary Care Provider Unavailabl e Insurance [...] PART B Apr 24, 2013 PART B [id number] [id number] KLEBER DYE RY PATIENT MEDICARE (WNR) MEDICARE () PART B Apr 24, 2013 PART B [id number] KLE[place] DYE RY PATIENT MEDICARE (WNR) MEDICARE () PART B Apr 24, 2013 PART B [id number] K[place] DYE RY PATIENT MEDICARE (WNR) MEDICARE () PART A November 23, 2011 PART A [id number] KLEBER DYE RY PATIENT MEDICARE (WNR) MEDICARE () PART A November 23, 2011 PART A [id number] KLEBER DYE RY PATIENT MEDICARE (WNR) MEDICARE () PART A November 23, 2011 PART A [id number] KLEBER DYE PATIENT [employer] [place] [employer] PLAN G PLAN G Apr 24, 2013 PLAN G [id number] KLEBER DYE PATIENT [employer] [place] [employer] PLAN G Apr 24, 2013 PLANG [id number] KLEBER DYE PATIENT [employer] [place] [employer] PLAN G PLANG Apr 24, 2013 PLANG [id number] KLEBER DYE PATIENT Selected Encounter This section includes the information on record at [place] for the Encounter. Date/Time Encounter Type Encounter Description Reason Provider Source Jun 14, 2024 01:41 PM QNHP OL DIG ASSMT&MGMT 5-10 PULMONARY/CHEST ICD-10-CM Z12.2 Encntr screen for malignant neoplasm of respiratory organs BRAYDEN DELEON [facility] Encounter Template Text not used by [place] Assessments - Encounter Diagnoses This section includes the primary and secondary diagnoses documented for the Encounter. Date/Time Primary/Secondary Diagnosis Diagnosis Name Provider Source Jun 14, 2024 01:48 PM PRIMARY Encntr screen for malignant neoplasm of respiratory organs BRAYDEN DELEON [facility] Plan of Treatment: Future Appointments (+ 6 months) and Future Tests (+/- 45 days) The Plan of Treatment section includes future care activities for the patient from all [place] treatmentfacilities. This section includes future appointments and future orders which are active, pending or scheduled. Future Appointments This section includes appointments that were scheduled to occur 6 months from the date of the Encounter, up to a maximum of 20 appointments. The data comes from all [place] treatment facilities. Appointment Date/Time Appointment Type Appointme nt Facility Name Jun 15, 2024 02:00 PM AMBULATORY - MEDICINE [facility] Jun 26, 2024 10:30 AM [facility] [place] [facility] [place] [facility] [place] [facility] Jun 26, 2024 01:00 PM AMBULATORY - MEDICINE [facility] Jul 03, 2024 10:30 AM [facility] [place] [facility] Jul 10, 2024 10:30 AM AMBULAT[facility] [place] [facility] Jul 12, 2024 10:30 AM AMBULATORY [facility] MEDICINE [facility] [place] [facility] Jul 24, 2024 10:00 AM AMBULATORY - [facility] MEDICIN [facility] [place] [facility] Aug 09, 2024 10:00 AM AMBULATORY - MEDICINE [facility] [place] [facility] Aug 10, 2024 10:00 AM AMBULATORY - RE[facility] MEDICIN [facility] [place] [facility] Aug 14, 2024 11:00 AM AMBULATORY - MEDICINE [facility] [place] [facility] Aug 27, 2024 11:00 AM AMBULATORY - NONE [facility] [place] [facility] Aug 28, 2024 10:30 AM AMBULATORY - [facility]IC[facility] [place] [facility] Sep 12, 2024 01:00 PM AMBULATORY - RE[facility] MEDICIN [facility] [place] [facility] Oct 04, 2024 03:00 PM AMBULATORY - MEDICINE [facility] [place] [facility] Oct 16, 2024 10:00 AM AMBULATORY - MEDICINE [facility] [place] [facility] December 12, 2024 11:30 AM AMBULATORY - MEDICINE [place] [facility] [place] [place] [facility] Social History: Smoking Status (Most current) and Tobacco Use (All prior to encounter date) This section includes the most current, and the historical, smoking and tobacco- related health factors from the [place] facility where the Encounter took place. Current Smoking Status This section includes the most current smoking, or tobacco-related health factor, from the [place] facility where the Encounter took place. Date/Time Current Smoking Status Comment Facil it Apr 23, 2024 10:00 AM [place]-TOBACCO QUIT 5 TO < 15 YRS [facility] Tobacco Use History This section includes a history of the smoking, or tobacco-related health factors, that were collected on or before the date of the Encounter. The data comes from the [place] facility where the Encounter took place. Date/Time Smoking Status/Tobac co Use Comment Facility Apr 23, 2024 10:00 AM [place]-TOBACCO QUIT 5 TO < 15 YRS [facility] [place] [facility] Apr 13, 2023 11:00 AM VA-TOBACCO FORMER USER [facility] [place] [facility] Apr 13, 2023 11:00 AM VA-TOBACCO QUIT 5 TO < 15 YRS [facility] [place] [facility] Apr 14, 2022 01:30 PM VA-TOBACCO FORMER USER [facility] [place] [facility] Apr 14, 2022 01:30 PM VA-TOBACCO QUIT 5 TO < 15 YRS [facility] [place] [facility] Apr 10, 2021 10:00 AM VA-TOBACCO FORMER USER [facility] [place] [facility] Apr 10, 2021 10:00 AM VA-TOBACCO QUIT 5 TO < 15 YRS [facility] [place] [facility] Apr 02, 2020 10:30 AM VA-TOBACCO FORMER USER [facility] [place] [facility] Apr 02, 2020 10:30 AM VA-TOBACCO QUIT 5 TO < 15 YRS [facility] [place] [facility] Sep 29, 2018 08:52 AM VA-TOBACCO FORMER USER [facility] [place] [facility] Sep 29, 2018 08:52 AM VA-TOBACCO QUIT 15 YRS OR MORE [facility] [place] [facility] December 21, 2017 12:27 PM QUIT TOBACCO USE 1-7 YEARS AGO 5 or 6 years ago [facility] [place] [facility] May 19, 2017 10:21 AM QUIT TOBACCO USE 1-7 YEARS AGO [facility] [place] [facility] Aug 19, 2016 09:56 AM QUIT TOBACCO USE 1-7 YEARS AGO [facility] [place] [facility] Feb 12, 2016 11:34 AM QUIT TOBACCO USE 1-7 YEARS AGO [facility] [place] [facility] Aug 08, 2015 03:04 PM QUIT TOBACCO USE 1-7 YEARS AGO [facility] [place] [facility] Aug 08, 2015 03:04 PM QUIT TOBACCO USE IN PAST YEAR pt states he stooped smmoking in the past yr. [place] [facility] [place] [facility] Advance Directives: All historical and current Section Date Range: From patient's date of to the date document was created. This section includes ALL of a patient's completed or amended [place] Advance and Rescinded Directives. The entries below indicate that a directive exists for the patient, but an actual copy is not included with this document. The data comes from all [place] facilities. Date Advance Directives Provider Source Jun 20, 2012 ADVANCE DIRECTIVE DISCUSSION MONIKA IZAGUIRRE [facility] Radiology Reports: +/- 30 days of the [...] the Encounter. The data comes from all [place] treatment facilities. Date/Time Radiology Report Provider Source Jun 14, 2024 10:20 AM LDCT LUNG CANCER SCREENING: SANCHO DYE EDILBERTO [id number] -[id number] M Exm Date: JUN 14, 2024@10:20 Req Phys: AARON WALDEN Pat Loc: [facility]/NO/LCS ADMIN (Req'g Loc) Img Loc: [place]/CT Service: [place] [address] (Case [id number] COMPLETE) LDCT LUNG CANCER SCREENING (CT Detailed) CPT:59280 Reason for Study: LUNG CANCER SCREENING Clinical History: 53 TPY-Quit 2012 Prior chest imaging: CT scan the chest from May 25, 2022, May 07, 2021, April 29, 2020, April 18, 2019 and December 12, 2017. LCS LDCT on 06/15/2023: LR 1 Report Status: Verified Date Reported: JUN 14, 2024 Date Verified: JUN 14, 2024 Band Tier E-Sig:/ES/MIRTA NAVAS JR Report: Study: Lung cancer [...] reviewed. Secondary computer-aided detection with post-processing from [employer] is used. The lack of intravenous contrast [...] Primary Interpreting Staff: MIRTA NAVAS JR, Radiologist (Band Tier) /MIRTA CASIANO JR [place] [facility] [place] [facility] Encounter Notes: All associated encounter notes This section contains the clinical notes associated to the Encounter. Date/Time Encounter Note(s) Provider Source Jun 14, 2024 01:48 PM PREVENTIVE MEDICINE RISK ASSESSMENT SCREENING NOTE: LOCAL TITLE: LUNG CANCER SCREENING DOCUMENTATION STANDARD TITLE: PREVENTIVE MEDICINE RISK ASSESSMENT SCREENING NO DATE OF NOTE: JUN 14, 2024@13:48 ENTRY DATE: JUN 14, 2024@13:48:42 AUTHOR: VALERI DELEON COSIGNER: URGENCY: STATUS: COMPLETED May Dear Mr. Dye: Your recent lung cancer screening CT scan found a small lung nodule. Most nodules are not lung cancer, but a few can grow into lung cancer. As mentioned in the enclosed brochure, nodules are often caused by scar tissue, a healed infection, or some other irritant found in the air we breathe. Nodules are detected in up to half of screening CT scans, but very few nodules knock out hand to be cancer. In general, more than 95 out of 100 nodules found on lung cancer screening CT scans are not lung cancer. If there are additional findings, we will alert your primary care team. A copy if the results from your Low-Dose CT scan done on 06/14/2024 are enclosed with this letter. Your next lung cancer screening CT scan is due in 12 months, MAY 2025. Our radiology team will reach out to you 3 months prior to when your exam is due to get you scheduled. You may reach our radiology team M-F between the hours of 8am and 4pm at [phone] for scheduling purposes. If you are experiencing an upper respiratory illness like a cold or the flu, please get your scan 4 weeks after your symptoms have gone away. Lung cancer screening can detect lung cancer, but it does not prevent it. Rarely, a CT scan can miss a small lung cancer. Contact your primary care provider if you develop new symptoms like worsening shortness of breath, change in a cough, or coughing up blood. If you still smoke cigarettes, we can help you quit. We understand that quitting cigarette smoking is difficult, but it is the best way to improve your health. When you want help, let your primary care provider know. You can also call 9-253-RXVM-VET ( ) or visit [employer]smokefree.gov. Please contact us with questions or concerns about lung cancer screening. Sincerely, Valeri BRUNNER, RN, OCN Lung Cancer Screening Nurse Enclosures: brochure entitled, Small Lung Nodules: What You Need to Know /glenis/ VALERI BRUNNER,RN,OCN LUNG CANCER SCREENING NURSE NAVIGATOR Signed: 06/14/2024 13:50 VALERI DELEON [place] [facility] [place] [facility] Jun 14, 2024 01:41 PM PREVENTIVE MEDICINE RISK ASSESSMENT SCREENING NOTE: LOCAL TITLE: LUNG CANCER SCREENING DOCUMENTATION STANDARD TITLE: PREVENTIVE MEDICINE RISK ASSESSMENT SCREENING NO DATE OF NOTE: JUN 14, 2024@13:41 ENTRY DATE: JUN 14, 2024@13:42 AUTHOR: VALERI DELEON EXP COSIGNER: URGENCY: STATUS: COMPLETED NO LUNG NODULES or TRACKING OF NODULE NOT INDICATED per guidelines (e.g., clearly benign/some small nodules). Date of image: Date: June 14, 2024 LDCT Scan Results: Most recent LDCT scan shows a nodule for which tracking is not indicated per guidelines or radiology report. Comment: Lung Rads 2 (stable) Index Nodule: Stable 5.3 mm solid, ovoid, well-circumscribed left upper lobe pulmonary nodule, 8-58. Other Nodules: Stable 5.9 mm solid, linear, well-circumscribed, juxtapleural right middle lobe pulmonary nodule, 8-240. Stable 5.4 mm solid, curvilinear, juxtapleural left upper lobe pulmonary nodule, 8-59. Incidental Findings: The following *INCIDENTAL FINDINGS* were noted: Emphysema: Mild centrilobular and paraseptal emphysematous changes with associated scattered parenchymal scarring is unchanged. Lungs/airway findings: Multiple scattered bilateral punctate calcified granulomata are again seen. Heart, mediastinum and lymph nodes: Small amount of fluid unchanged in the superior pericardial recess adjacent to the thoracic aorta. Visualized coronary artery calcifications: Atherosclerotic changes of the aorta and coronary arteries. Upper abdomen: Small hiatal hernia. 4 mm punctate left renal pelvis calcification, likely vascular. I am notifying the Primary Care Provider for information, and for follow-up of incidental findings, if indicated. Comment: Dr. Walden and PACT team via second signer in CPRS Plan: Continue routine annual lung cancer screening. Patient Notification of results: Results letter sent to patient. Comment: Results letter and educational materials mailed to address on file. Patient contacted by telephone. Comment: Call placed to the [facility]. Non-urgent voicemail left. Direct call back number for LCS Coordinator provided. 53 TPY quit smoking in 2012 /glenis/ VALERI GUERRERON,RN,OCN LUNG CANCER SCREENING NURSE NAVIGATOR Signed: 06/14/2024 13:48 Receipt Acknowledged By: 06/15/2024 08:57 /es/ Merly Matthews RN, BSN Primary Care 06/14/2024 17:07 /glenis/ Aaron Walden MD Staff Physician VALERI DELEON [facility]
--- OUTSIDE RECORDS SUMMARY | 2024-06-15 10:00 | XMS_ITS | Encounter Summary ---
Author Name [facility] [place] [facility] [place] [facility] [place] [place] Address [address] [place] [address] Care Team Providers Care Brusher Machine Name Role Phone LETICIA WALDEN Primary Care [...] PART B Apr 24, 2013 PART B [id number] [phone] KLEBER DYE RY PATIENT MEDICARE (WNR) MEDICARE () PART B Apr 24, 2013 PART B [id number] [facility] KLEBER DYE RY PATIENT MEDICARE (WNR) MEDICARE () PART B Apr 24, 2013 PART B [id number] KLEBER DYE RY PATIENT MEDICARE (WNR) MEDICARE () PART A November 23, 2011 PART A [id number] [phone] KLEBER DYE RY PATIENT MEDICARE (WNR) MEDICARE () PART A November 23, 2011 PART A [id number] KLEBER DYE RY PATIENT MEDICARE (WNR) MEDICARE () PART A November 23, 2011 PART A [id number] KLEBER DYE PATIENT [employer] PLAN G PLAN G Apr 24, 2013 PLAN G [id number] KLEBER DYE PATIENT [employer] PLAN G PLANG Apr 24, 2013 PLANG [id number] KLEBER DYE PATIENT [employer] PL[employer] G Apr 24, 2013 PLANG [id number] KLEBER DYE PATIENT Selected Encounter This section includes the information on record at [place] for the Encounter. Date/Time Encounter Type Encounter Description Reason Provider Source Jun 15, 2024 02:00 PM OFFICE O/P EST SF 10 MIN MANAGER OF FINANCIAL ICD-10-CM M54.2 Cervicalgia MICHELLE TAVARES Greta Encounter Template Text not used by [place] Assessments - Encounter Diagnoses This section includes the primary and secondary diagnoses documented for the Encounter. Date/Time Primary/Secondary Diagnosis Diagnosis Name Provider Source Jul 05, 2024 08:51 AM PRIMARY CervicalMICHELLE Hand [facility] [place] [facility] Plan of Treatment: Future Appointments (+ 6 months) and Future Tests (+/- 45 days) The Plan of Treatment section includes future care activities for the patient from all [place] [facility]. This section includes future appointments and future orders which are active, pending or scheduled. Future Appointments This section includes appointments that were scheduled to occur 6 months from the date of the Encounter, up to a maximum of 20 appointments. The data comes from all [place] treatment facilities. Appointment Date/Time Appointment Type Appointme nt Facility Name Jun 26, 2024 10:30 AM AMBULATORY - [facility]ICIN [facility] [place] [facility] Jun 26, 2024 01:00 PM AMBULATORY - MEDICINE IN [facility] [place] [facility] Jul 03, 2024 10:30 AM AMBULATORY - [facility] MEDICIN [facility] [place] [facility] Jul 10, 2024 10:30 AM AMBULATORY - REHAB MEDICIN E [facility] [place] [facility] Jul 12, 2024 10:30 AM AMBULATORY - MEDICINE IN [facility] [place] [facility] Jul 24, 2024 10:00 AM AMBULATORY - REHAB MEDICIN E [facility] [place] [facility] Aug 09, 2024 10:00 AM AMBULATORY - MEDICINE [facility] [place] [facility] Aug 10, 2024 10:00 AM AMBULATORY - REHAB MEDICIN E [facility] [place] [facility] Aug 14, 2024 11:00 AM AMBULATORY - MEDICINE [facility] [place] [facility] Aug 27, 2024 11:00 AM AMBULATORY - NONE [facility] [place] [facility] Aug 28, 2024 10:30 AM AMBULATORY - REHAB MEDICIN E [facility] [place] [facility] Sep 12, 2024 01:00 PM AMBULATORY - REHAB MEDICIN E [facility] [place] [facility] Oct 04, 2024 03:00 PM AMBULATORY - MEDICINE [facility] [place] [facility] Oct 16, 2024 10:00 AM AMBULATORY - MEDICINE [facility] [place] [facility] December 12, 2024 11:30 AM AMBULATORY - MEDICINE [facility] [place] [facility] Social History: Smoking Status (Most current) and Tobacco Use (All prior to encounter date) This section includes the most current, and the historical, smoking and tobacco- related health factors from the [place] facility where the Encounter took place. Current Smoking Status This section includes the most current smoking, or tobacco-related health factor, from the [place] facility where the Encounter took place. Date/Time Current Smoking Status Comment [facility] Apr 23, 2024 10:00 AM VA-TOBACCO FORMER USER [facility] [place] [facility] Tobacco Use History This section includes a history of the smoking, or tobacco-related health factors, that were collected on or before the date of the Encounter. The data comes from the [place] facility where the Encounter took place. Date/Time Smoking Status/Tobac co Use Comment Facility Apr 23, 2024 10:00 AM VA-TOBACCO QUIT 5 TO < 15 YRS [facility] [place] [facility] Apr 13, 2023 11:00 AM VA-TOBACCO FORMER USER [facility] [place] [facility] Apr 13, 2023 11:00 AM VA-TOBACCO QUIT 5 TO < 15 YRS [facility] [place] [facility] Apr 14, 2022 01:30 PM VA-TOBACCO FORMER USER [facility] [place] [facility] Apr 14, 2022 01:30 PM VA-TOBACCO QUIT 5 TO < 15 YRS [facility] [place] [facility] Apr 10, 2021 10:00 AM VA-TOBACCO FORMER USER [facility] [place] [facility] Apr 10, 2021 10:00 AM VA-TOBACCO QUIT 5 TO < 15 YRS [facility] [place] [facility] Apr 02, 2020 10:30 AM VA-TOBACCO FORMER USER [facility] [place] [facility] Apr 02, 2020 10:30 AM VA-TOBACCO QUIT 5 TO < 15 YRS [facility] [place] [facility] Sep 29, 2018 08:52 AM VA-TOBACCO FORMER USER IN [facility] [place] [facility] Sep 29, 2018 08:52 AM VA-TOBACCO QUIT 15 YRS OR MORE [facility] [place] [facility] December 21, 2017 12:27 PM QUIT TOBACCO USE 1-7 YEARS AGO 5 or 6 years ago [facility] [place] [facility] May 19, 2017 10:21 AM QUIT TOBACCO USE 1-7 YEARS AGO [facility] [place] [facility] Aug 19, 2016 09:56 AM QUIT TOBACCO USE 1-7 YEARS AGO [facility] [place] [facility] Feb 12, 2016 11:34 AM QUIT TOBACCO USE 1-7 YEARS AGO [facility] [place] [facility] Aug 08, 2015 03:04 PM QUIT TOBACCO USE 1-7 YEARS AGO [facility] [place] [facility] Aug 08, 2015 03:04 PM QUIT TOBACCO USE IN PAST YEAR pt states he stooped smmoking in the past yr. [place] [facility] [place] [facility] Advance Directives: All historical and current Section Date Range: From patient's date of to the date document was created. This section includes ALL of a patient's completed or amended VA Advance and Rescinded Directives. The entries below indicate that a directive exists for the patient, but an actual copy is not included with this document. The data comes from all [place] facilities. Date Advance Directives Provider Source Jun 20, 2012 ADVANCE DIRECTIVE DISCUSSION MONIKA IZAGUIRRE [facility] Radiology Reports: +/- 30 days of the [...] the Encounter. The data comes from all [place] treatment facilities. Date/Time Radiology Report Provider Source Jun 14, 2024 10:20 AM LDCT LUNG CANCER SCREENING: SANCHO DYE [id number] -[id number] M Exm Date: JUN 14, 2024@10:20 Req Phys: LETICIA WALDEN Loc: ZZCWM/NO/LCS ADMIN (Req'g Loc) Img Loc: [facility]/CT Service: [place] [address] (Case [id number] COMPLETE) LDCT LUNG CANCER SCREENING (CT Detailed) CPT:19035 Reason for Study: LUNG CANCER SCREENING Clinical History: 53 TPY-Quit 2012 Prior chest imaging: CT scan the chest from May 25, 2022, May 07, 2021, April 29, 2020, April 18, 2019 and December 12, 2017. LCS LDCT on 06/15/2023: LR 1 Report Status: Verified Date Reported: JUN 14, 2024 Date Verified: JUN 14, 2024 Manager Hi E-Sig:/ES/MIRTA NAVAS JR Report: Study: Lung cancer [...] reviewed. Secondary computer-aided detection with post-processing from [facility] is used. The lack of intravenous contrast [...] Primary Interpreting Staff: MIRTA NAVAS JR, Radiologist (Manager Hi) /MIRTA CASIANO JR [facility] Encounter Notes: All associated encounter notes This section contains the clinical notes associated to the Encounter. Date/Time Encounter Note(s) Provider Source Jun 18, 2024 10:37 AM CHIROPRACTIC TELEP ALBA ENCOUNTER NOTE: LOCAL TITLE: TELEPHONE NOTE/CHIROPRACTOR STANDARD TITLE: CHIROPRACTIC TELEPHONE ENCOUNTER NOTE DATE OF NOTE: JUN 18, 2024@10:37 ENTRY DATE: JUN 18, 2024@10:38:04 AUTHOR: MICHELLE TAVARES EXP COSIGNER: URGENCY: STATUS: COMPLETED Called and spoke to patient. Informed patient that his PCP informed me that patient can not receive a steroid injection due to a contraindication with medication, Apixiban. Caio stated that he is taking Tylenol and that he is slightly better that at the last visit in [place] Ch[place] clinic. Recommended ice pack wrapped in a thin cloth applied to his neck for 10 minutes at a time. Maximum is 10 minutes per hour. /glenis/ MICHELLE TAVARES D.C. 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 SERVICE INDICATED: Yes POS: PERIOD OF SERVICE - OTHER OR NONE SERVICE BRANCH: Service Connected Disabilities with % Eligibility: Active Problem Shoulder pain M25.519, Onset / 09/21/2023 LETICIA WALDEN Cerebral infarction I63.9, Onset 00 06/24/2023 LETICIA WALDEN Exposure to potentially hazardous s 10/13/2022 LETICIA WALDEN Benign Prostatic Hypertrophy withou 10/06/2021 LETICIA WALDEN Impaired fasting glucose R73.01, On 04/10/2021 LETICIA WALDEN Chronic dermatitis L30.9, Onset 06/24/2023 LETICIA WALDEN AF- Atrial Fibrillation (SCT [id number] 12/23/2017 LETICIA WALDEN Coronary artery disease I25.10, Ons 08/08/2015 LETICIA WALDEN Essential hypertension I10., Onset 08/08/2015 LETICIA WALDEN Hypercholesterolemia E78.0, Onset 0 08/08/2015 LETICIA WALDEN Gout M10.9, Onset 08/08/2015 LETICIA WALDEN Gastro-esophageal reflux disease K2 08/08/2015 LETICIA WALDEN History of colonic polyp Z86.010, O 08/08/2015 LETICIA WALDEN Erectile dysfunction F52.21, Onset 08/08/2015 LETICIA WALDEN Past Surgeries: Surgery on R shoulder Takes anti-coagulants Patient presents to [place] Chi[place]ractic clinic with report that the neck pain returned after sleeping in his bed. He feels the neck pain more frequently now. He did go for months w/o pain and experienced benefit with OT. Vet reports C/O pain that radiates into the tricep, medial forearm and ulnar aspect of left hand. He denies weakness in hand. He rates the pain average 3-4/10 and states that he took Tylenol. Discussed alternatives and patient agrees to a consult for steroid injection He reports that he continues to take Tylenol every 6 hours for pain Vet had x-rays of cervical spine. He went to walk-in clinic. Followed by OT for R elbow pain SPINE CERVICAL, 4 OR 5 VIEWS Reason for Study: pain with radiating features to the left shoulder Date Reported: Feb Report: Study: AP, lateral and left and right oblique views of the cervical spine. Findings: There is intervertebral disc space narrowing, vertebral endplate sclerosis and anterior osteophytosis at all levels, most notable at the C5-T1 levels stable and moderate in degree and consistent with degenerative disc disease. There is overall straightening of the normal cervical lordosis, likely secondary to patient positioning, pain or the degenerative changes. There is no significant neural foraminal stenosis secondary to bony osteophyte formation. The vertebral heights are normal. There is mild facet and uncovertebral joint hypertrophic change. The bony mineralization is normal. No bony fracture, dislocation or subluxation is identified. The skull base appears normal. Prominent bilateral neck soft tissue calcifications suspicious for carotid atherosclerotic plaques. Impression: Prominent neck calcifications with stability of multilevel degenerative changes in the cervical spine, as described above. Vet inquires about Acupuncture and Massage therapy. He rates the pain on the NPRS as average 7-9/10 with motion. Provocative: lifting his arm to take a bite of food; Left rotation of head/neck. Palliative: Tylenol at max dose which helps and Cyclobenzaprine which usually helps but last night it did not help. Onset: September 26 he woke up with pain after sleeping in a different bed. He just flew down to [place]. HX; During service natural falls down but nothing that he can state a specific; Around he had a mild stroke a blood clot in his left eye. C/O pain in Same shoulder but different sx. He was not able to lift his arm to put on coat. It was about 5 years ago and he saw Pam in PT. He FU with injection of cortisone which alleviated the sx. Prior home health care respiratory therapist: yes for R shoulder and neck Activities: walks; easy exercise with Theraband. GOALS: get stronger Pertinent imaging: Report:09/21/23 Study: AP internally and externally rotated and Axillary views of the left shoulder. Comparison: Left shoulder radiographs from May 16, 2018 Findings: The visualized lung and ribs appear normal. The bony mineralization is normal. Posttraumatic deformity and arthritic changes are again seen to the glenohumeral joint space with bony remodeling of the inferior glenoid and medial humeral head degenerative osteophyte present. Mild degenerative changes are present to the acromioclavicular joint space. Punctate curvilinear calcification above the greater tuberosity of the humerus suspicious for calcific tendinopathy of the rotator cuff tendons. There is no acute bony fracture, dislocation or subluxation. 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 No suspicious lung nodules. 2. Mild emphysema. 3. Moderately heavy arteriovascular calcifications, including coronary artery. Patient denies recent fever, infections, night sweats, unexplained weight loss, bowl/bladder problems, saddle anesthesia Initial EXAM NPRS 7-9/10 Active LUMBAR ROM largely WNL limited and provocative into: Extension Flexion Lateral Bending Rotation Peripheral Neuro-Muscular Exam Lower Extremity Gross motor 5/5 and sensory exam is intact without abnormality Patellar and Achilles Reflex 2+ Bilat No ankle clonus Active CERVICAL ROM limited and provocative into: all motions Extension Flexion refers to left interscap region Lateral Bending rotation UE Motor strength graded 5/5 Sensation grossly intact to light touch DTRs 2+ biceps triceps brachioradialis Cervical Orthopedic Tests Compression + Distraction + pain Left shoulder ROMS Flexion at 80 provokes pain in left lateral scapular Abduction at 90 - pain in post scap Soft tissue palpation reveals hypertonicity and tenderness over infraspinatus, terees, medial border of scapular, levator scap, C/sp mm bilat Motion palpation reveals intersegmental cervical, thoracic somatic dysfunction with relative joint hypomobility. IMPRESSION: Neck and Back pain associated with, segmental jt dysfunction and hypertonicity. It is reasonable in this case to apply a conservative course of manual therapy to address myofascial and joint findings while encouraging activity and stretching specific to the patient's presentation. PLAN: Treatment #1. I explained all of this to the patient and the patient seemed to understand. Treatment options from least invasive to most with the associated risks, benefits, alternatives, and potential outcomes were discussed in detail. Potential risks associated with spinal manipulative therapy, the following were shared with the patient: Likely (transient mild post-treatment soreness); Less Likely (Bruising, sprain/strain); Rare but potentially serious (disc herniation, fracture); Extremely Rare but serious (epidural spinal hematoma, cauda equina syndrome). Informed consent obtained to provide management consisting of: ~ Lumbar F/D decompression manipulation with the intended goal of the reduction of LBP and limitations related to LBP through the mechanical action of lumbar flexion with a gentle distractive force. ~ MFR as per palpation (10 minutes) ~ Mobilization/SMT to Cervical, Thoracic, and/or Lumbar and S-I regions in lateral decubitus posture ~ Prone or supine thoracic mobilization/SMT ~ Prone hip flexor/quadriceps stretching as per palpation ~ Supine gluteal stretching as per palpation Objectives 06/15/24: Cervical ROMs all motions provoke neck pain Tenderness and hypertonicity C/sp,upper trapezius Restrictions cervical Hypertonic Cervical paraspinal mm. orthopedic tests: Compression, Distraction, shoulder depression, UE tension test all provoke neck pain but no UE sx. Treatment: Corrective/Active Manual therapy, 10 min cervical seated with manual axial traction . CMT low force AT cervical Treatment carried out today and well tolerated. Prognosis, at this time, is fair to good. Plan: followed by OT; Patient asks if his PCP can be contacted for approval of injection. Short term goals include improvement in excess 25% on regional disability questionnaire and/or NRS over the first 3-4 treatment visits. It was explained to the patient that resolution of soft tissue complaintsthrough conservative management requires compliance with at home recommendations and avoidance of aggravating factors. Self-Care Recommendations: ice to neck ~Patient encouraged to engage in activities such as a walking program with established goals to reduce fear-avoidance behaviors with regard to movement,and improve overall health and fitness. emphasis placed upon function over pain with effort made each day to remain active understanding that normal daily activities may temporarily increase pain experience but are not inherently injurious and should be explored to the extent possible. ~ Activity such as Yoga encouraged to enhance relaxation, flexibility, posture, core stability, balance, and pain modulation. Visit 16 F/U one week Seek urgent care as needed. CMT: chiropractic manipulative therapy SMT: Spinal Manipulative Therapy F/D: Flexion Distraction MFR: Myofascial Release S-I: Sacroiliac MFTP: Myofascial Trigger Point NRS: Numeric Rating Scale N/T: Numbness/Tingling PIR: Post isometric relaxation /es/ MICHELLE TAVARES D.C. CHIROPRACTOR Signed: 06/15/2024 16:29 MICHELLE TAVARES [facility]
--- OUTSIDE RECORDS SUMMARY | 2024-06-26 09:00 | XMS_ITS ---
Author Name [facility] Organization [facility] [place] Address [address] [place] [address] Care Team Providers Care City Maintenance Manager Name Role Phone LETICIA WALDEN Primary [...] PART B Apr 24, 2013 PART B [id number] KLEBER DYE RY PATIENT MEDICARE (WNR) MEDICARE () PART B Apr 24, 2013 PART B [id number] KLEBER DYE RY PATIENT MEDICARE (WNR) MEDICARE () PART B Apr 24, 2013 PART B [id number] KLEBER DYE RY PATIENT MEDICARE (WNR) MEDICARE () PART A November 23, 2011 PART A [id number] KLEBER DYE RY PATIENT MEDICARE (WNR) MEDICARE () PART A November 23, 2011 PART A [id number] KLEBER DYE RY PATIENT MEDICARE (WNR) MEDICARE () PART A November 23, 2011 PART A [id number] KLEBER DYE PATIENT [employer] PLAN G PLAN G Apr 24, 2013 PLAN G [id number] KLEBER DYE PATIENT [employer] PLAN G PLANG Apr 24, 2013 PLANG [id number] KLEBER DYE PATIENT [employer] PLAN G Apr 24, 2013 PLANG [id number] KLEBER DYE PATIENT Selected Encounter This section includes the information on record at ID for the Encounter. 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 Date/Time Primary/Secondary Diagnosis Diagnosis Name Provider Source Sep 20, 2024 10:02 AM PRIMARY CervicalMICHELLE Hand [place] [facility] [place] [facility] Plan of Treatment: Future Appointments (+ 6 months) and Future Tests (+/- 45 days) The Plan of Treatment section includes future care activities for the patient from all ID treatmentfacilities. This section includes future appointments and future orders which are active, pending or scheduled. Future Appointments This section includes appointments that were scheduled to occur 6 months from the date of the Encounter, up to a maximum of 20 appointments. The data comes from all ID treatment facilities. Appointment Date/Time Appointment Type Appointme nt Facility Name Jul 03, 2024 10:30 AM AMBULATORY - REHAB MEDICIN E [facility] [place] [facility] Jul 10, 2024 10:30 AM AMBULATORY - REHAB MEDICIN E [place] [facility] [place] [facility] Jul 12, 2024 10:30 AM AMBULATORY - MEDICINE ID [facility] [place] [facility] Jul 24, 2024 10:00 AM AMBULATORY - REHAB MEDICIN E [facility] [place] [facility] Aug 09, 2024 10:00 AM AMBULATORY - MEDICINE ID [facility] [place] [facility] Aug 10, 2024 10:00 AM AMBULATORY - REHAB MEDICIN E [facility] [place] [facility] Aug 14, 2024 11:00 AM AMBULATORY - MEDICINE VA [facility] [place] [facility] Aug 27, 2024 11:00 AM AMBULATORY - NONE [facility] [place] [facility] Aug 28, 2024 10:30 AM AMBULATORY - REHAB MEDICIN E [facility] [place] [facility] Sep 12, 2024 01:00 PM AMBULATORY - REHAB MEDICIN E [facility] [place] [facility] Oct 04, 2024 03:00 PM AMBULATORY - MEDICINE VA [facility] [place] [facility] Oct 16, 2024 10:00 AM AMBULATORY - MEDICINE VA [facility] [place] [facility] December 12, 2024 11:30 AM AMBULATORY - MEDICINE [facility] [place] [facility] Dec 25, 2024 01:00 PM AMBULATORY - MEDICINE VA C [facility] [place] [facility] Social History: Smoking Status (Most current) and Tobacco Use (All prior to encounter date) This section includes the most current, and the historical, smoking and tobacco- related health factors from the ID facility where the Encounter took place. Current Smoking Status This section includes the most current smoking, or tobacco-related health factor, from the ID facility where the Encounter took place. Date/Time Current Smoking Status Comment [facility] Apr 23, 2024 10:00 AM VA-TOBACCO QUIT 5 TO < 15 YRS ID [facility] [place] [facility] Tobacco Use History This section includes a history of the smoking, or tobacco-related health factors, that were collected on or before the date of the Encounter. The data comes from the ID facility where the Encounter took place. Date/Time Smoking Status/Tobac co Use Comment Facility Apr 23, 2024 10:00 AM VA-TOBACCO QUIT 5 TO < 15 YRS [facility] [place] [facility] Apr 13, 2023 11:00 AM VA-TOBACCO FORMER USER [facility] [place] [facility] Apr 13, 2023 11:00 AM VA-TOBACCO QUIT 5 TO < 15 YRS [facility] [place] [facility] Apr 14, 2022 01:30 PM VA-TOBACCO FORMER USER [facility] [place] [facility] Apr 14, 2022 01:30 PM VA-TOBACCO QUIT 5 TO < 15 YRS [facility] [place] [facility] Apr 10, 2021 10:00 AM VA-TOBACCO FORMER USER [facility] [place] [facility] Apr 10, 2021 10:00 AM VA-TOBACCO QUIT 5 TO < 15 YRS [facility] [place] [facility] Apr 02, 2020 10:30 AM VA-TOBACCO FORMER USER [facility] [place] [facility] Apr 02, 2020 10:30 AM VA-TOBACCO QUIT 5 TO < 15 YRS ID [facility] [place] [facility] Sep 29, 2018 08:52 AM VA-TOBACCO FORMER USER ID [facility] [place] [facility] Sep 29, 2018 08:52 AM VA-TOBACCO QUIT 15 YRS OR MORE ID [facility] [place] [facility] December 21, 2017 12:27 PM QUIT TOBACCO USE 1-7 YEARS AGO 5 or 6 years ago ID [facility] [place] [facility] May 19, 2017 10:21 AM QUIT TOBACCO USE 1-7 YEARS AGO [facility] [place] [facility] Aug 19, 2016 09:56 AM QUIT TOBACCO USE 1-7 YEARS AGO [facility] [place] [facility] Feb 12, 2016 11:34 AM QUIT TOBACCO USE 1-7 YEARS AGO [facility] [place] [facility] Aug 08, 2015 03:04 PM QUIT TOBACCO USE 1-7 YEARS AGO ID [facility] [place] [facility] Aug 08, 2015 03:04 PM QUIT TOBACCO USE IN PAST YEAR pt states he stooped smmoking in the past yr. ID [facility] [place] [facility] Advance Directives: All historical and current Section Date Range: From patient's date of to the date document was created. This section includes ALL of a patient's completed or amended ID Advance and Rescinded Directives. The entries below indicate that a directive exists for the patient, but an actual copy is not included with this document. The data comes from all ID facilities. Date Advance Directives Provider Source Jun 20, 2012 ADVANCE DIRECTIVE DISCUSSION MONIKA IZAGUIRRE [facility] Radiology Reports: +/- 30 days of the [...] the Encounter. The data comes from all ID treatment facilities. Date/Time Radiology Report Provider Source Jun 14, 2024 10:20 AM LDCT LUNG CANCER SCREENING: SANCHO DYE [id number] -1945 M Exm Date: JUN 14, 2024@10:20 Req Phys: LETICIA WALDEN Loc: ZZCWM/NO/LCS ADMIN (Req'g Loc) Img Loc: [facility]/CT Service: [place] [address] (Case [id number] COMPLETE) LDCT LUNG CANCER SCREENING (CT Detailed) CPT:39143 Reason for Study: LUNG CANCER SCREENING Clinical History: 53 TPY-Quit 2012 Prior chest imaging: CT scan the chest from May 25, 2022, May 07, 2021, April 29, 2020, April 18, 2019 and December 12, 2017. LCS LDCT on 06/15/2023: LR 1 Report Status: Verified Date Reported: JUN 14, 2024 Date Verified: JUN 14, 2024 Proposal Development Manager E-Sig:/ES/MIRTA NAVAS JR Report: Study: Lung cancer [...] reviewed. Secondary computer-aided detection with post-processing from [employer] is used. The lack of intravenous contrast [...] Primary Interpreting Staff: MIRTA NAVAS JR, Radiologist (Proposal Development Manager) /IMRTA CASIANO JR [facility] Encounter Notes: All associated encounter notes This section contains the clinical notes associated to the Encounter. Date/Time Encounter Note(s) Provider Source Jun 26, 2024 12:45 PM CHIROPRACTIC NOTE: LOCAL TITLE: CHIROPRACTOR PROGRESS NOTE STANDARD TITLE: CHIROPRACTIC NOTE DATE OF NOTE: JUN 26, 2024@12:45 ENTRY DATE: JUN 26, 2024@12:45:06 AUTHOR: ANUSHA,MICHELLE EXP COSIGNER: URGENCY: STATUS: COMPLETED SANCHO DYE [...] 06/24/2023 LETICIA WALDEN AF- Atrial Fibrillation (SCT [id number] 12/23/2017 LETICIA WALDEN Coronary artery disease I25.10, Ons 08/08/2015 LETICIA WALDEN Essential hypertension I10., Onset 08/08/2015 LETICIA WALDEN Hypercholesterolemia E78.0, Onset 0 08/08/2015 LETICIA WALDEN Gout M10.9, Onset 08/08/2015 LETICIA WALDEN Gastro-esophageal reflux disease K2 08/08/2015 LETICIA WALDEN History of colonic polyp Z86.010, O 08/08/2015 LETICIA WALDEN Erectile dysfunction F52.21, Onset 08/08/2015 LETICIA WALDEN Past Surgeries: Surgery on R shoulder Takes anti-coagulants He states that he felt somewhat better today and also felt benefit from session with Pam at OT today. He re-iterates that the neck pain and tightness persists. He rates the pain on the NPRS as average 4/10 at rest Provocative: lifting his arm to take a bite of food; Left rotation of head/neck. Vet reports C/O pain that radiates into [...] Vet inquires about Acupuncture and Massage therapy. Palliative: Tylenol at max dose which helps and Cyclobenzaprine which usually helps but last night it did not help. Onset: September 26 he woke up with pain after sleeping in a different bed. He just flew down to [place]. HX; During service natural falls down but [...] of cortisone which alleviated the sx. Prior patient care: yes for R shoulder and neck Activities: [...] Supine gluteal stretching as per palpation Objectives 06/26/24: Tenderness and hypertonicity C/sp,upper trapezius Restrictions cervical Hypertonic Cervical paraspinal mm. Treatment: Corrective/Active Manual therapy, 10 min cervical seated with manual axial traction . CMT low force AT cervical Treatment carried out today and well tolerated. Prognosis, at this time, is fair to good. Plan: 2 more visits with OT; Consult LMT. Patient will give decision on whether or not he will agree to Empowered Relief. Short term goals include improvement in excess 25% on regional disability questionnaire and/or NRS over the first 3-4 treatment visits. It was explained to the patient that resolution of soft tissue complaintsthrough conservative management requires compliance with at home recommendations and avoidance of aggravating factors. Self-Care Recommendations: Empowered relief ice to neck ~Patient encouraged to engage [...] core stability, balance, and pain modulation. Visit 17 F/U one week Seek urgent care as needed. CMT: chiropractic manipulative therapy SMT: Spinal Manipulative Therapy F/D: Flexion Distraction MFR: Myofascial Release S-I: Sacroiliac MFTP: Myofascial Trigger Point NRS: Numeric Rating Scale N/T: Numbness/Tingling PIR: Post isometric relaxation /es/ MICHELLE TAVARES D.C. CHIROPRACTOR Signed: 06/27/2024 14:55 MICHELLE TAVARES [facility]
--- OUTSIDE RECORDS SUMMARY | 2024-07-03 06:30 | XMS_ITS | Encounter Summary ---
Author Name [facility] [place] Organization [facility] [place] [facility] [place] Address [address] [place] [address] Care Team Providers Care Blow Molding Machine Tender Name Role Phone LETICIA WALDEN Primary Care [...] PART B Apr 24, 2013 PART B [id number] [id number] KLEBER DYE RY PATIENT MEDICARE (WNR) MEDICARE () PART B Apr 24, 2013 PART B [id number] KLEBER DYE RY PATIENT MEDICARE (WNR) MEDICARE () PART B Apr 24, 2013 PART B [id number] KLEBER DYE RY PATIENT MEDICARE (WNR) MEDICARE () PART A November 23, 2011 PART A [id number] 80A KLEBER DYE RY PATIENT MEDICARE (WNR) MEDICARE () PART A November 23, 2011 PART A [id number] KLEBER DYE RY PATIENT MEDICARE (WNR) MEDICARE () PART A November 23, 2011 PART A [id number] KLEBER DYE PATIENT [employer] [place] [employer] PLAN G PLAN G Apr 24, 2013 PLAN G [id number] KLEBER DYE PATIENT [employer] [place] [employer] PLAN G PLANG Apr 24, 2013 PLANG [id number] KLEBER DYE PATIENT [employer] [place] [employer] PLAN G Apr 24, 2013 PLANG [id number] KLEBER DYE PATIENT Selected Encounter This section includes the information on record at MI for the Encounter. Date/Time Encounter Type Encounter Description Reason Provider Source Jul 03, 2024 10:30 AM THERAPEUTIC EXERCISES OCCUPATIONAL THERAPY ICD-10-CM M25.512 Pain in left shoulder PAM JEFFERSON IHE Encounter Template Text not used by [place] Assessments - Encounter Diagnoses This section includes the primary and secondary diagnoses documented for the Encounter. Date/Time Primary/Secondary Diagnosis Diagnosis Name Provider Source Jul 19, 2024 02:12 PM PRIMARY Pain in left shoulder BRAULIO JEFFERSONLIE E [place] [facility] [place] [facility] Plan of Treatment: Future Appointments (+ 6 months) and Future Tests (+/- 45 days) The Plan of Treatment section includes future care activities for the patient from all MI treatmentfacilities. This section includes future appointments and future orders which are active, pending or scheduled. Future Appointments This section includes appointments that were scheduled to occur 6 months from the date of the Encounter, up to a maximum of 20 appointments. The data comes from all MI treatment facilities. Appointment Date/Time Appointment Type Appointme nt Facility Name Jul 10, 2024 10:30 AM AMBULATORY - REHAB MEDICIN E [facility] [place] [facility] Jul 12, 2024 10:30 AM AMBULATORY - MEDICINE [place] C [facility] [place] [facility] Jul 24, 2024 10:00 AM AMBULATORY - REHAB MEDICIN E [facility] [place] [facility] Aug 09, 2024 10:00 AM AMBULATORY - MEDICINE [place] C [facility] [place] [facility] Aug 10, 2024 10:00 AM AMBULATORY - REHAB MEDICIN E [facility] [place] [facility] Aug 14, 2024 11:00 AM AMBULATORY - MEDICINE VA C [facility] [place] [facility] Aug 27, 2024 11:00 AM AMBULATORY - NONE [facility] [place] [facility] Aug 28, 2024 10:30 AM AMBULATORY - REHAB MEDICIN E [facility] [place] [facility] Sep 12, 2024 01:00 PM AMBULATORY - REHAB MEDICIN E [facility] [place] [facility] Oct 04, 2024 03:00 PM AMBULATORY - MEDICINE VA C [facility] [place] [facility] Oct 16, 2024 10:00 AM AMBULATORY - MEDICINE VA C [facility] [place] [facility] December 12, 2024 11:30 AM AMBULATORY - MEDICINE VA C [facility] [place] [facility] Dec 25, 2024 01:00 PM AMBULATORY - MEDICINE VA C [facility] [place] [facility] Jan 01, 2025 09:00 AM AMBULATORY - MEDICINE VA C [facility] [place] [facility] Social History: Smoking Status (Most current) and Tobacco Use (All prior to encounter date) This section includes the most current, and the historical, smoking and tobacco- related health factors from the [place] facility where the Encounter took place. Current Smoking Status This section includes the most current smoking, or tobacco-related health factor, from the [place] facility where the Encounter took place. Date/Time Current Smoking Status Comment [facility] Apr 23, 2024 10:00 AM VA-TOBACCO FORMER USER VA [facility] [place] [facility] Tobacco Use History This section includes a history of the smoking, or tobacco-related health factors, that were collected on or before the date of the Encounter. The data comes from the [place] facility where the Encounter took place. Date/Time Smoking Status/Tobac co Use Comment Facility Apr 23, 2024 10:00 AM VA-TOBACCO QUIT 5 TO < 15 YRS [facility] [place] [facility] Apr 13, 2023 11:00 AM VA-TOBACCO FORMER USER [facility] [place] [facility] Apr 13, 2023 11:00 AM VA-TOBACCO QUIT 5 TO < 15 YRS [facility] [place] [facility] Apr 14, 2022 01:30 PM VA-TOBACCO FORMER USER [facility] [place] [facility] Apr 14, 2022 01:30 PM VA-TOBACCO QUIT 5 TO < 15 YRS [facility] [place] [facility] Apr 10, 2021 10:00 AM VA-TOBACCO FORMER USER [facility] [place] [facility] Apr 10, 2021 10:00 AM VA-TOBACCO QUIT 5 TO < 15 YRS [place] [facility] [place] [facility] Apr 02, 2020 10:30 AM VA-TOBACCO FORMER USER [place] [facility] [place] [facility] Apr 02, 2020 10:30 AM VA-TOBACCO QUIT 5 TO < 15 YRS [place] [facility] [place] [facility] Sep 29, 2018 08:52 AM VA-TOBACCO FORMER USER [place] [facility] [place] [facility] Sep 29, 2018 08:52 AM VA-TOBACCO QUIT 15 YRS OR MORE [place] [facility] [place] [facility] December 21, 2017 12:27 PM QUIT TOBACCO USE 1-7 YEARS AGO 5 or 6 years ago [place] [facility] [place] [facility] May 19, 2017 10:21 AM QUIT TOBACCO USE 1-7 YEARS AGO MI [facility] [place] [facility] Aug 19, 2016 09:56 AM QUIT TOBACCO USE 1-7 YEARS AGO MI [facility] [place] [facility] Feb 12, 2016 11:34 AM QUIT TOBACCO USE 1-7 YEARS AGO [place] [facility] [place] [facility] Aug 08, 2015 03:04 PM QUIT TOBACCO USE 1-7 YEARS AGO [place] [facility] [place] [facility] Aug 08, 2015 03:04 PM QUIT TOBACCO USE IN PAST YEAR pt states he stooped smmoking in the past yr. [place] [facility] [place] [facility] Advance Directives: All historical and current Section Date Range: From patient's date of to the date document was created. This section includes ALL of a patient's completed or amended [place] Advance and Rescinded Directives. The entries below indicate that a directive exists for the patient, but an actual copy is not included with this document. The data comes from all [place] facilities. Date Advance Directives Provider Source Jun 20, 2012 ADVANCE DIRECTIVE DISCUSSION MONIKA IZAGUIRRE [facility] Radiology Reports: +/- 30 days of the [...] the Encounter. The data comes from all [place] treatment facilities. Date/Time Radiology Report Provider Source Jun 14, 2024 10:20 AM LDCT LUNG CANCER SCREENING: SANCHO DYE [id number] -1945 M Exm Date: JUN 14, 2024@10:20 Req Phys: LETICIA WALDEN Pat Loc: ZZCWM/NO/LCS ADMIN (Req'g Loc) Img Loc: [facility]/CT Service: [facility] [place] [address] (Case [id number] COMPLETE) LDCT LUNG CANCER SCREENING (CT Detailed) CPT:35582 Reason for Study: LUNG CANCER SCREENING Clinical History: 53 TPY-Quit 2012 Prior chest imaging: CT scan the chest from May 25, 2022, May 07, 2021, April 29, 2020, April 18, 2019 and December 12, 2017. LCS LDCT on 06/15/2023: LR 1 Report Status: Verified Date Reported: JUN 14, 2024 Date Verified: JUN 14, 2024 Manganese Breaker E-Sig:/ES/MIRTA NAVAS JR Report: Study: Lung cancer [...] reviewed. Secondary computer-aided detection with post-processing from [employer] is used. The lack of intravenous contrast [...] Primary Interpreting Staff: MIRTA NAVAS JR, Radiologist (Manganese Breaker) /MIRTA CASIANO JR [facility] Encounter Notes: All associated encounter notes This section contains the clinical notes associated to the Encounter. Date/Time Encounter Note(s) Provider Source Jul 03, 2024 10:32 AM OCCUPATIONAL THERAPY NOTE: LOCAL TITLE: OCCUPATIONAL THERAPY STANDARD TITLE: OCCUPATIONAL THERAPY NOTE DATE OF NOTE: JUL 03, 2024@10:32 ENTRY DATE: JUL 03, 2024@10:32:59 AUTHOR: PAM JEFFERSON COSIGNER: URGENCY: STATUS: COMPLETED Initial Evaluation date: Mar Progress Note Date: Treatment #: 10 Treatment time: 30 minutes Diagnosis: Pain in left Shoulder(ICD-10-CM M25.512) Provider: Irma DIAZ Treatment Precautions: Patient identified by full name and date of SUBJECTIVE: Pt reports that he feels he has made 50-60% improvement since initiating tx. It does hurt every day, but not that bad. He still isn't sleeping in his bed. He's only taking Tylenol a couple of days per week. Pain level: 3/10 at rest OBJECTIVE: AROM: Shoulder: [R] [L] Flexion: WNL WNL Abduction: WNL WNL IR: WNL WNL ER: WNL WNL *(+) discomfort w/ flexion/abduction, arc MMT: Shoulder: [R] [L] Flexion: 5/5 5/5 Abduction: 5/5 5/5 IR: 5/5 5/5 ER: 5/5 5/5 Resisted Motions: discomfort noted w/ resisted abduction only THERAPEUTIC EXERCISE: *UBE 2' forward, 2' backward 2.0 *pulleys into flexion w/ 10 second hold, 1x10 *wall slides into flexion, 1x10 *shoulder IR w/ green band, 2x10 *shoulder ER w/ green band, 2x10 Access Code: [email or web address] URL: [email or web address] Date: 06/26/2024 Prepared by: PARUL [facility] Exercises - Seated Shoulder Flexion AAROM [...] 3 sets - 10 reps - Shoulder Internal Rotation with Resistance - 1 x daily - 7 x weekly - 3 sets - 10 reps - Shoulder External Rotation with Anchored Resistance - 1 x daily - 7 [...] pt tolerated tx well this date. he continues to note persistent discomfort in the posterior shoulder and the neck. despite this, his ROM and strength is quite good. he is still not sleeping in his bed and is only sleeping in his recliner. he is able to tolerate RTC strengthening exercises w/o an increase in pain. He reported feeling good following tx. still discomfort, but good. PLAN: continue w/ OT POC; modify tx as needed. chiro placed consult for massage therapy. pt is in agreement w/ this POC. /glenis/ Pam Jefferson, MS OTR/Malini, CHT Occupational Therapist Signed: 07/03/2024 12:26 PAM JEFFERSON [facility]
--- OUTSIDE RECORDS SUMMARY | 2024-07-12 06:30 | XMS_ITS ---
Author Name [facility] [place] Address [address] [place] [address] Care Team Providers Care Vacuum Caster Name Role Phone LETICIA WALDEN Primary Care [...] PART B Apr 24, 2013 PART B [id number] KLEBER DYE RY PATIENT MEDICARE (WNR) MEDICARE () PART B Apr 24, 2013 PART B [id number] A KLEBER DYE RY PATIENT MEDICARE (WNR) MEDICARE () PART B Apr 24, 2013 PART B [id number] KLEBER DYE RY PATIENT MEDICARE (WNR) MEDICARE () PART A November 23, 2011 PART A [id number] KLEBER DYE RY PATIENT MEDICARE (WNR) MEDICARE () PART A November 23, 2011 PART A [id number] KLEBER DYE RY PATIENT MEDICARE (WNR) MEDICARE () PART A November 23, 2011 PART A [id number] KLEBER DYE PATIENT [employer] [place] PLAN G PLAN G Apr 24, 2013 PLAN G [id number] KLEBER DYE PATIENT [employer] [place] PLAN G PLANG Apr 24, 2013 PLANG [id number] KLEBER DEY PATIENT [employer] [place] [employer] PLAN G Apr 24, 2013 PLANG [id number] KLEBER DYE PATIENT Selected Encounter This section includes the information on record at [place] for the Encounter. Date/Time Encounter Type Encounter Description Reason Provider Source Jul 12, 2024 10:30 AM MANUAL THERAPY 1/> [facility] ADMISSION LIAISON ICD-10-CM M54.2 Cervicalgia MICHELLE TAVARES Great Encounter Template Text not used by [place] Assessments - Encounter Diagnoses This section includes the primary and secondary diagnoses documented for the Encounter. Date/Time Primary/Secondary Diagnosis Diagnosis Name Provider Source Aug 05, 2024 10:31 AM PRIMARY Cervicalgia MICHELLE TAVARES [facility] [place] [facility] Plan of Treatment: Future Appointments (+ 6 months) and Future Tests (+/- 45 days) The Plan of Treatment section includes future care activities for the patient from all [place] treatmentfacilities. This section includes future appointments and future orders which are active, pending or scheduled. Future Appointments This section includes appointments that were scheduled to occur 6 months from the date of the Encounter, up to a maximum of 20 appointments. The data comes from all [place] treatment facilities. Appointment Date/Time Appointment Type Appointme nt Facility Name Jul 24, 2024 10:00 AM AMBULATORY - REHAB MEDICIN E [place] [facility] [place] [facility] Aug 09, 2024 10:00 AM AMBULATORY - MEDICINE [place] [facility] [facility] Aug 10, 2024 10:00 AM AMBULATORY - [facility]AB MEDICIN E [facility] [place] [facility] Aug 14, 2024 11:00 AM AMBULATORY - MEDICINE [place] [facility] [place] [facility] Aug 27, 2024 11:00 AM AMBULATORY - NONE [place] [facility] [place] [facility] Aug 28, 2024 10:30 AM AMBULATORY - REHAB MEDICIN E [facility] [place] [facility] Sep 12, 2024 01:00 PM AMBULATORY - REHAB MEDICIN E [facility] [place] [facility] Oct 04, 2024 03:00 PM AMBULATORY - MEDICINE [facility] [place] [facility] Oct 16, 2024 10:00 AM AMBULATORY - MEDICINE [facility] [facility] December 12, 2024 11:30 AM AMBULATORY - MEDICINE [facility] [place] [facility] Dec 25, 2024 01:00 PM AMBULATORY - MEDICINE [facility] [place] [facility] Jan 01, 2025 09:00 AM AMBULATORY - MEDICINE [facility] [facility] Social History: Smoking Status (Most current) and Tobacco Use (All prior to encounter date) This section includes the most current, and the historical, smoking and tobacco- related health factors from the [place] facility where the Encounter took place. Current Smoking Status This section includes the most current smoking, or tobacco-related health factor, from the [place] facility where the Encounter took place. Date/Time Current Smoking Status Comment [facility] Apr 23, 2024 10:00 AM VA-TOBACCO QUIT 5 TO < 15 YRS [place] [facility] [place] [facility] Tobacco Use History This section includes a history of the smoking, or tobacco-related health factors, that were collected on or before the date of the Encounter. The data comes from the [place] facility where the Encounter took place. Date/Time Smoking Status/Tobac co Use Comment Facility Apr 23, 2024 10:00 AM VA-TOBACCO QUIT 5 TO < 15 YRS [facility] [place] [facility] Apr 13, 2023 11:00 AM VA-TOBACCO FORMER USER [facility] [place] [facility] Apr 13, 2023 11:00 AM VA-TOBACCO QUIT 5 TO < 15 YRS [facility] [place] [facility] Apr 14, 2022 01:30 PM VA-TOBACCO FORMER USER [facility] [place] [facility] Apr 14, 2022 01:30 PM VA-TOBACCO QUIT 5 TO < 15 YRS [facility] [place] [facility] Apr 10, 2021 10:00 AM VA-TOBACCO FORMER USER [facility] [facility] Apr 10, 2021 10:00 AM VA-TOBACCO QUIT 5 TO < 15 YRS [place] [facility] [place] [facility] Apr 02, 2020 10:30 AM VA-TOBACCO FORMER USER [place] [facility] [facility] Apr 02, 2020 10:30 AM VA-TOBACCO QUIT 5 TO < 15 YRS [place] [facility] [place] [facility] Sep 29, 2018 08:52 AM VA-TOBACCO FORMER USER [place] [facility] [facility] Sep 29, 2018 08:52 AM VA-TOBACCO QUIT 15 YRS OR MORE [place] [facility] [place] [facility] December 21, 2017 12:27 PM QUIT TOBACCO USE 1-7 YEARS AGO 5 or 6 years ago [place] [facility] [place] [facility] May 19, 2017 10:21 AM QUIT TOBACCO USE 1-7 YEARS AGO [place] [facility] [place] [facility] Aug 19, 2016 09:56 AM QUIT TOBACCO USE 1-7 YEARS AGO [place] [facility] [place] [facility] Feb 12, 2016 11:34 AM QUIT TOBACCO USE 1-7 YEARS AGO [place] [facility] [facility] Aug 08, 2015 03:04 PM QUIT TOBACCO USE 1-7 YEARS AGO [place] [facility] [place] [facility] Aug 08, 2015 03:04 PM QUIT TOBACCO USE IN PAST YEAR pt states he stooped smmoking in the past yr. [facility] [place] [facility] Advance Directives: All historical and current Section Date Range: From patient's date of to the date document was created. This section includes ALL of a patient's completed or amended [place] Advance and Rescinded Directives. The entries below indicate that a directive exists for the patient, but an actual copy is not included with this document. The data comes from all [place] facilities. Date Advance Directives Provider Source Jun 20, 2012 ADVANCE DIRECTIVE DISCUSSION MONIKA IZAGUIRRE [facility] Radiology Reports: +/- 30 days of the [...] the Encounter. The data comes from all [place] treatment facilities. Date/Time Radiology Report Provider Source Jun 14, 2024 10:20 AM LDCT LUNG CANCER SCREENING: SANCHO DYE [id number] -[id number] M Exm Date: JUN 14, 2024@10:20 Req Phys: LETICIA WALDEN Pat Loc: ZZCWM/NO/LCS ADMIN (Req'g Loc) Img Loc: NHM/CT Service: Unknown [place] [facility] [address] (Case [id number] COMPLETE) LDCT LUNG CANCER SCREENING (CT Detailed) CPT:91061 Reason for Study: LUNG CANCER SCREENING Clinical History: 53 TPY-Quit 2012 Prior chest imaging: CT scan the chest from May 25, 2022, May 07, 2021, April 29, 2020, April 18, 2019 and December 12, 2017. LCS LDCT on 06/15/2023: LR 1 Report Status: Verified Date Reported: JUN 14, 2024 Date Verified: JUN 14, 2024 It Service Continuity Supervisor E-Sig:/ES/MIRTA NAVAS JR Report: Study: Lung cancer [...] reviewed. Secondary computer-aided detection with post-processing from [employer] is used. The lack of intravenous contrast [...] Primary Interpreting Staff: MIRTA NAVAS JR, Radiologist (It Service Continuity Supervisor) /MIRTA CASIANO JR [facility] Encounter Notes: All associated encounter notes This section contains the clinical notes associated to the Encounter. Date/Time Encounter Note(s) Provider Source Jul 12, 2024 10:26 AM CHIROPRACTIC NOTE: LOCAL TITLE: CHIROPRACTOR PROGRESS NOTE STANDARD TITLE: CHIROPRACTIC NOTE DATE OF NOTE: JUL 12, 2024@10:26 ENTRY DATE: JUL 12, 2024@10:26:17 AUTHOR: MICHELLE TAVARES COSIGNER: URGENCY: STATUS: COMPLETED SANCHO DYE is a 77 WHITE MALE with prior history of COMBAT SERVICE INDICATED: Yes POS: PERIOD OF SERVICE - OTHER OR NONE SERVICE BRANCH: Service Connected Disabilities with % Eligibility: Active Problem Shoulder pain M25.519, Onset 09/21/2023 LETICIA WALDEN Cerebral infarction I63.9, Onset 00 06/24/2023 LETICIA WALDEN Exposure to potentially hazardous s 10/13/2022 LETICIA WALDEN Benign Prostatic Hypertrophy withou 10/06/2021 LETICIA WALDEN Impaired fasting glucose R73.01, On 04/10/2021 LETICIA WALDEN Chronic dermatitis L30.9, Onset 06/24/2023 LETICIA WALDEN AF- Atrial Fibrillation (SCT [id number] 12/23/2017 LETICIA WALDEN Coronary artery disease I25.10, [...] shoulder Takes anti-coagulants He states that he feels somewhat better and did not need to take Tylenol today. He took 2 Tylenols yesterday. Continues to Follow with with Pam at OT today. Provocative: lifting his arm to take a [...] different bed. He just flew down to [place]. HX; During service natural falls down but [...] of cortisone which alleviated the sx. 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 Self-Care Recommendations: Patient prefers to wait on this ER Empowered relief ice to neck ~Patient encouraged [...] balance, and pain modulation. Visit 17 F/U NA Seek urgent care as needed. CMT: chiropractic manipulative therapy SMT: Spinal Manipulative Therapy F/D: Flexion Distraction MFR: Myofascial Release S-I: Sacroiliac MFTP: Myofascial Trigger Point NRS: Numeric Rating Scale N/T: Numbness/Tingling PIR: Post isometric relaxation /es/ MICHELLE TAVARES D.C. CHIROPRACTOR Signed: 07/12/2024 10:51 MICHELLE TAVARES [facility]
--- OUTSIDE RECORDS SUMMARY | 2024-07-24 06:00 | XMS_ITS | Encounter Summary ---
Author Name [facility] [place] [facility] [place] Address [address] [place] [address] Care Team Providers Care Technology And Engineering Teacher Name Role Phone LETICIA WALDEN Primary Care [...] PART B Apr 24, 2013 PART B [id number] KLEBER DYE RY PATIENT MEDICARE (WNR) MEDICARE () PART B Apr 24, 2013 PART B [id number] A KLEBER DYE RY PATIENT MEDICARE (WNR) MEDICARE () PART B Apr 24, 2013 PART B [id number] KLEBER DYE RY PATIENT MEDICARE (WNR) MEDICARE () PART A November 23, 2011 PART A [id number] KLEBER DYE RY PATIENT MEDICARE (WNR) MEDICARE () PART A November 23, 2011 PART A [id number] KLEBER DYE RY PATIENT MEDICARE (WNR) MEDICARE () PART A November 23, 2011 PART A [id number] KLEBER DYE PATIENT [employer] [place] [employer] PLAN G PLAN G Apr 24, 2013 PLAN G [id number] KLEBER DYE PATIENT [employer] [place] [employer] PLAN G PLANG Apr 24, 2013 PLANG [id number] KLEBER DYE PATIENT [employer] [place] [employer] PLAN G Apr 24, 2013 PLANG [id number] KLEBER DYE PATIENT Selected Encounter This section includes the information on record at [place] for the Encounter. Date/Time Encounter Type Encounter Description Reason Provider Source Jul 24, 2024 10:00 AM THERAPEUTIC EXERCISES OCCUPATIONAL THERAPY ICD-10-CM M25.512 Pain in left shoulder PAM JEFFERSON IHE Encounter Template Text not used by [place] Assessments - Encounter Diagnoses This section includes the primary and secondary diagnoses documented for the Encounter. Date/Time Primary/Secondary Diagnosis Diagnosis Name Provider Source Aug 12, 2024 05:51 PM PRIMARY Pain in left shoulder BRAULIO JEFFERSONLIE E [place] [facility] [facility] Plan of Treatment: Future Appointments (+ 6 months) and Future Tests (+/- 45 days) The Plan of Treatment section includes future care activities for the patient from all [place] [facility] [place]. This section includes future appointments and future orders which are active, pending or scheduled. Future Appointments This section includes appointments that were scheduled to occur 6 months from the date of the Encounter, up to a maximum of 20 appointments. The data comes from all [place] treatment facilities. Appointment Date/Time Appointment Type Appointme nt Facility Name Aug 09, 2024 10:00 AM AMBULATORY - MEDICINE [place] [facility] [facility] Aug 10, 2024 10:00 AM AMBULATORY - REHAB MEDICIN E [place] [facility] [facility] Aug 14, 2024 11:00 AM AMBULATORY - MEDICINE [place] [facility] [facility] Aug 27, 2024 11:00 AM AMBULATORY - NONE [place] [facility] [facility] Aug 28, 2024 10:30 AM AMBULATORY - REHAB MEDICIN E [place] [facility] [facility] Sep 12, 2024 01:00 PM AMBULATORY - REHAB MEDICIN E [place] [facility] [facility] Oct 04, 2024 03:00 PM AMBULATORY - MEDICINE [place] [facility] [facility] Oct 16, 2024 10:00 AM AMBULATORY - MEDICINE [place] [facility] [place] [facility] December 12, 2024 11:30 AM AMBULATORY - MEDICINE [place] [facility] [facility] Dec 25, 2024 01:00 PM AMBULATORY - MEDICINE [place] [facility] [place] [facility] Jan 01, 2025 09:00 AM AMBULATORY - MEDICINE [place] [facility] [place] [facility] Social History: Smoking Status (Most current) and Tobacco Use (All prior to encounter date) This section includes the most current, and the historical, smoking and tobacco- related health factors from the [place] facility where the Encounter took place. Current Smoking Status This section includes the most current smoking, or tobacco-related health factor, from the [place] facility where the Encounter took place. Date/Time Current Smoking Status Comment Ivan almonte Apr 23, 2024 10:00 AM VA-TOBACCO QUIT 5 TO < 15 YRS [facility] [place] [facility] Tobacco Use History This section includes a history of the smoking, or tobacco-related health factors, that were collected on or before the date of the Encounter. The data comes from the [place] facility where the Encounter took place. Date/Time Smoking Status/Tobac co Use Comment [facility] Apr 23, 2024 10:00 AM VA-TOBACCO QUIT 5 TO < 15 YRS [facility] [facility] Apr 13, 2023 11:00 AM VA-TOBACCO FORMER USER [facility] [place] [facility] Apr 13, 2023 11:00 AM VA-TOBACCO QUIT 5 TO < 15 YRS [facility] [facility] Apr 14, 2022 01:30 PM VA-TOBACCO FORMER USER [facility] [place] [facility] Apr 14, 2022 01:30 PM VA-TOBACCO QUIT 5 TO < 15 YRS [facility] [place] [facility] Apr 10, 2021 10:00 AM VA-TOBACCO FORMER USER [facility] [place] [facility] Apr 10, 2021 10:00 AM VA-TOBACCO QUIT 5 TO < 15 YRS [facility] [facility] Apr 02, 2020 10:30 AM VA-TOBACCO FORMER USER [place] [facility] [facility] Apr 02, 2020 10:30 AM VA-TOBACCO QUIT 5 TO < 15 YRS [place] [facility] [facility] Sep 29, 2018 08:52 AM VA-TOBACCO FORMER USER [place] [facility] [place] [facility] Sep 29, 2018 08:52 AM VA-TOBACCO QUIT 15 YRS OR MORE [place] [facility] [place] [facility] December 21, 2017 12:27 PM QUIT TOBACCO USE 1-7 YEARS AGO 5 or 6 years ago [place] [facility] [place] [facility] May 19, 2017 10:21 AM QUIT TOBACCO USE 1-7 YEARS AGO [place] [facility] [place] [facility] Aug 19, 2016 09:56 AM QUIT TOBACCO USE 1-7 YEARS AGO [place] [facility] [facility] Feb 12, 2016 11:34 AM QUIT TOBACCO USE 1-7 YEARS AGO [place] [facility] [place] [facility] Aug 08, 2015 03:04 PM QUIT TOBACCO USE 1-7 YEARS AGO [place] [facility] [place] [facility] Aug 08, 2015 03:04 PM QUIT TOBACCO USE IN PAST YEAR pt states he stooped smmoking in the past yr. [facility] [place] [facility] Advance Directives: All historical and current Section Date Range: From patient's date of to the date document was created. This section includes ALL of a patient's completed or amended [place] Advance and Rescinded Directives. The entries below indicate that a directive exists for the patient, but an actual copy is not included with this document. The data comes from all [place] facilities. Date Advance Directives Provider Source Jun 20, 2012 ADVANCE DIRECTIVE DISCUSSION MONIKA IZAGUIRRE [facility] Encounter Notes: All associated encounter notes This section contains the clinical notes associated to the Encounter. Date/Time Encounter Note(s) Provider Source Jul 24, 2024 09:58 AM OCCUPATIONAL THERAPY NOTE: LOCAL TITLE: OCCUPATIONAL THERAPY STANDARD TITLE: OCCUPATIONAL THERAPY NOTE DATE OF NOTE: JUL 24, 2024@09:58 ENTRY DATE: JUL 24, 2024@09:58:52 AUTHOR: PAM JEFFERSON COSIGNER: URGENCY: STATUS: COMPLETED Initial Evaluation date: Mar Progress Note Date: Treatment #: 12 Treatment time: 30 minutes Diagnosis: Pain in left Shoulder(ICD-10-CM M25.512) Provider: Irma DIAZ Treatment Precautions: Patient identified by full name and date of SUBJECTIVE: Pt reports that he went away for [place] and he didn't get his exercises in. He also didn't sleep well. Pain level: 3/10 at rest OBJECTIVE: THERAPEUTIC EXERCISE: *UBE 2' forward, 2' backward 2.0 *pulleys into flexion w/ 10 second hold, 1x10 *wall slides into flexion, 1x10 *shoulder IR w/ green band, 1x10 *shoulder ER w/ green band, 1x10 *D1 extension w/ green band, 2x10 Access Code: [email or web address] URL: [email or web address] Date: 07/10/2024 Prepared by: PARUL [facility] Exercises - Seated Shoulder Flexion AAROM [...] - 3 sets - 10 reps - Standing Single Arm Shoulder PNF D1 Extension with Anchored Resistance - 1 x daily - 7 x weekly - 3 sets - 10 reps MINUTES: 14 MANUAL THERAPY: *mobilization to upper trap/infra and [...] pt tolerated tx well this date. he had a minor setback while sleeping in a bed while away for the holidays, but today feels as though he is not any worse than he was 2 weeks ago. he is able to perform all TE w/ good form and w/o pain. ttp and slight tightness noted in upper trap, though improved. pt reports feeling following tx. PLAN: continue w/ OT POC; modify tx as needed. every other week. pt is in agreement w/ this POC. /glenis/ Pam Jefferson, MS OTR/Malini, CHT Occupational Therapist Signed: 07/24/2024 12:06 PAM JEFFERSON [facility]
--- OUTSIDE RECORDS SUMMARY | 2024-08-10 06:00 | XMS_ITS | Encounter Summary ---
Author Name [facility] [place] [facility] [place] Address [address] [place] [address] Care Team Providers Care Wound Care Specialist Name Role Phone LETICIA WALDEN Primary Care [...] PART B Apr 24, 2013 PART B [id number] [phone] KLEBER DYE RY PATIENT MEDICARE (WNR) MEDICARE () PART B Apr 24, 2013 PART B [id number] [phone] [id number] KLEBER DYE RY PATIENT MEDICARE (WNR) MEDICARE () PART B Apr 24, 2013 PART B [id number] [id number] [id number] KLEBER DYE RY PATIENT MEDICARE (WNR) MEDICARE () PART A November 23, 2011 PART A [id number] KLEBER DYE RY PATIENT MEDICARE (WNR) MEDICARE () PART A November 23, 2011 PART A [id number] KLEBER DYE RY PATIENT MEDICARE (WNR) MEDICARE () PART A November 23, 2011 PART A [id number] KLEBER DYE PATIENT [employer] [place] PLAN G PLAN G Apr 24, 2013 PLAN G [id number] KLEBER DYE PATIENT [employer] [place] PLAN G PLANG Apr 24, 2013 PLANG [id number] KLEBER DYE PATIENT [employer] [place] PLAN G Apr 24, 2013 PLANG [id number] KLEBER DYE PATIENT Selected Encounter This section includes the information on record at [place] for the Encounter. Date/Time Encounter Type Encounter Description Reason Provider Source Aug 10, 2024 10:00 AM THERAPEUTIC EXERCISES OCCUPATIONAL THERAPY ICD-10-CM M25.512 Pain in left shoulder BRAULIO JEFFERSONLIE Greta IHGreta Encounter Template Text not used by [place] Assessments - Encounter Diagnoses This section includes the primary and secondary diagnoses documented for the Encounter. Date/Time Primary/Secondary Diagnosis Diagnosis Name Provider Source Aug 29, 2024 04:17 PM PRIMARY Pain in left shoulder RONNYPAM E [facility] [place] [facility] Plan of Treatment: Future Appointments (+ 6 months) and Future Tests (+/- 45 days) The Plan of Treatment section includes future care activities for the patient from all [place] treatmentfacilities. This section includes future appointments and future orders which are active, pending or scheduled. Future Appointments This section includes appointments that were scheduled to occur 6 months from the date of the Encounter, up to a maximum of 20 appointments. The data comes from all [place] treatment facilities. Appointment Date/Time Appointment Type Appointme nt Facility Name Aug 14, 2024 11:00 AM AMBULATORY - MEDICINE [facility] [place] [facility] Aug 27, 2024 11:00 AM AMBULATORY - NONE [facility] [place] [facility] Aug 28, 2024 10:30 AM AMBULATORY - REHAB MEDICIN E [facility] [place] [facility] Sep 12, 2024 01:00 PM AMBULATORY - REHAB MEDICIN E [facility] [place] [facility] Oct 04, 2024 03:00 PM AMBULATORY - MEDICINE [facility] [place] [facility] Oct 16, 2024 10:00 AM AMBULATORY - MEDICINE [facility] [place] [facility] December 12, 2024 11:30 AM AMBULATORY - MEDICINE [facility] [place] [facility] Dec 25, 2024 01:00 PM AMBULATORY - MEDICINE [facility] [place] [facility] Jan 01, 2025 09:00 AM AMBULATORY - MEDICINE [facility] [place] [facility] Social History: Smoking Status (Most current) and Tobacco Use (All prior to encounter date) This section includes the most current, and the historical, smoking and tobacco- related health factors from the [place] facility where the Encounter took place. Current Smoking Status This section includes the most current smoking, or tobacco-related health factor, from the [place] facility where the Encounter took place. Date/Time Current Smoking Status Comment [facility] Apr 23, 2024 10:00 AM VA-TOBACCO FORMER USER [facility] [place] [facility] Tobacco Use History This section includes a history of the smoking, or tobacco-related health factors, that were collected on or before the date of the Encounter. The data comes from the [place] facility where the Encounter took place. Date/Time Smoking Status/Tobac co Use Comment Facility Apr 23, 2024 10:00 AM VA-TOBACCO QUIT 5 TO < 15 YRS [facility] [place] [facility] Apr 13, 2023 11:00 AM VA-TOBACCO FORMER USER [facility] [place] [facility] Apr 13, 2023 11:00 AM VA-TOBACCO QUIT 5 TO < 15 YRS [facility] [place] [facility] Apr 14, 2022 01:30 PM VA-TOBACCO FORMER USER [facility] [place] [facility] Apr 14, 2022 01:30 PM VA-TOBACCO QUIT 5 TO < 15 YRS [facility] [place] [facility] Apr 10, 2021 10:00 AM VA-TOBACCO FORMER USER [facility] [place] [facility] Apr 10, 2021 10:00 AM VA-TOBACCO QUIT 5 TO < 15 YRS [facility] [place] [facility] Apr 02, 2020 10:30 AM VA-TOBACCO FORMER USER [facility] [place] [facility] Apr 02, 2020 10:30 AM VA-TOBACCO QUIT 5 TO < 15 YRS [facility] [place] [facility] Sep 29, 2018 08:52 AM [facility] Sep 29, 2018 08:52 AM VA-TOBACCO QUIT 15 YRS OR MORE [facility] December 21, 2017 12:27 PM QUIT TOBACCO USE 1-7 YEARS AGO 5 or 6 years ago [facility] May 19, 2017 10:21 AM QUIT TOBACCO USE 1-7 YEARS AGO [facility] Aug 19, 2016 09:56 AM QUIT TOBACCO USE 1-[facility] YE[facility] A[facility] Feb 12, 2016 11:34 AM QUIT TOBACCO USE 1-7 YEARS AGO [facility] Aug 08, 2015 03:04 PM QUIT TOBACCO USE 1-7 YEARS AGO [facility] Aug 08, 2015 03:04 PM QUIT TOBACCO USE IN PAST YEAR pt states he stooped [facility]moking in the past [facility]. [facility] Advance Directives: All historical and current Section Date Range: From patient's date of to the date document was created. This section includes ALL of a patient's completed or amended [place] Advance and Rescinded Directives. The entries below indicate that a directive exists for the patient, but an actual copy is not included with this document. The data comes from all [place] facilities. Date Advance Directives Provider Source Jun 20, 2012 ADVANCE DIRECTIVE DISCUSSION MONIKA IZAGUIRRE [facility] [place]counter Notes: All associated encounter notes This section contains the clinical notes associated to the Encounter. Date/Time Encounter Note(s) Provider Source Aug 10, 2024 09:59 AM OCCUPATIONAL THERAPY NOTE: LOCAL TITLE: OCCUPATIONAL THERAPY STANDARD TITLE: OCCUPATIONAL THERAPY NOTE DATE OF NOTE: AUG 10, 2024@09:59 ENTRY DATE: AUG 10, 2024@09:59:19 AUTHOR: PAM JEFFERSON COSIGNER: URGENCY: STATUS: COMPLETED Initial Evaluation date: Mar Progress Note Date: Treatment #: 13 Treatment time: 30 minutes Diagnosis: Pain in left Shoulder(ICD-10-CM M25.512) Provider: Irma DIAZ Treatment Precautions: Patient identified by full name and date of SUBJECTIVE: Pt reports that his shoulder is doing pretty ok. Pain level: 1/10 at rest OBJECTIVE: THERAPEUTIC EXERCISE: *UBE 2' forward, 2' backward 2.0 *pulleys into flexion w/ 10 second hold, 1x10 *wall slides into flexion, 1x10 *D1 extension w/ green band, 2x10 TRIALED: *D2 flexion w/ green band, 2x10 Access Code: [email or web address] URL: [email or web address] Date: 07/10/2024 Prepared by: [facility] Exercises - Seated Shoulder Flexion AAROM with [...] MINUTES: 14 MANUAL THERAPY: *mobilization to upper trap/infra/subscap, seated MINUTES: 9 THERAPEUTIC DYNAMIC ACTIVITIES: MINUTES: NEUROMUSCULAR EDUCATION: MINUTES: OTHER: MINUTES: MODALITIES: *MHP to L shoulder prior to tx MINUTES: 3 [] Contraindication screen completed prior to modality [] Skin intact pre/post SELF CARE/EDUCATION: MINUTES: Patient education was provided for all aspects of care during this clinical encounter. ASSESSMENT: pt tolerated tx well this date. he does feel that the therapy is helping. he still has the pain that seems to radiate to the armpit. palpable tightness/adhesion in infra/teres minor noted. pt reported feeling improved following tx. issued new exercise D2 flexion which caused slight discomfort but mostly fatigue. PLAN: continue w/ OT POC; modify tx as needed. every other week. pt is in agreement w/ this POC. /glenis/ Pam Jefferson, MS OTR/L, CHT Occupational Therapist Signed: 08/10/2024 14:38 [facility] JEFFERSON [facility]
--- OUTSIDE RECORDS SUMMARY | 2024-08-28 06:30 | XMS_ITS | Encounter Summary ---
Author Name [facility] [facility] [place] Organization [place] Address [address] [place] [address] Care Team Providers Care Scouring Machine Operator Name Role Phone LETICIA WALDEN Primary Care [...] PART B Apr 24, 2013 PART B [id number] [phone] [id number] KLEBER DYE RY PATIENT MEDICARE (WNR) MEDICARE () PART B Apr 24, 2013 PART B [id number] [facility] KLEBER DYE RY PATIENT MEDICARE (WNR) MEDICARE () PART B Apr 24, 2013 PART B [id number] KLEBER DYE RY PATIENT MEDICARE (WNR) MEDICARE () PART A November 23, 2011 PART A [id number] KLEBER DYE RY PATIENT MEDICARE (WNR) MEDICARE () PART A November 23, 2011 PART A [id number] [phone] [id number] KLEBER DYE RY PATIENT MEDICARE (WNR) MEDICARE () PART A November 23, 2011 PART A [id number] KLEBER DYE PATIENT [employer] [place] [employer] PLAN G PLAN G Apr 24, 2013 PLAN G [id number] KLEBER DYE PATIENT [employer] [place] [employer] PLAN G Apr 24, 2013 PLANG [id number] KLEBER DYE PATIENT [employer] [place] [employer] PLAN G PLANG Apr 24, 2013 PLANG [id number] KLEBER DYE PATIENT Selected Encounter This section includes the information on record at [place] for the Encounter. Date/Time Encounter Type Encounter Description Reason Provider Source Aug 28, 2024 10:30 AM THERAPEUTIC EXERCISES OCCUPATIONAL THERAPY ICD-10-CM M25.512 Pain in left shoulder PAM JEFFERSON IHE Encounter Template Text not used by [place] Assessments - Encounter Diagnoses This section includes the primary and secondary diagnoses documented for the Encounter. Date/Time Primary/Secondary Diagnosis Diagnosis Name Provider Source Sep 18, 2024 09:18 AM PRIMARY Pain in left shoulder RONNYPAM E [facility] [place] [facility] Plan of Treatment: Future Appointments (+ 6 months) and Future Tests (+/- 45 days) The Plan of Treatment section includes future care activities for the patient from all [place] treatmentfacilities. This section includes future appointments and future orders which are active, pending or scheduled. Future Appointments This section includes appointments that were scheduled to occur 6 months from the date of the Encounter, up to a maximum of 20 appointments. The data comes from all [place] treatment facilities. Appointment Date/Time Appointment Type Appointme nt Facility Name Sep 12, 2024 01:00 PM AMBULATORY - REHAB MEDICIN E [facility] [place] [facility] Oct 04, 2024 03:00 PM AMBULATORY - MEDICINE MD C [facility] [place] [facility] Oct 16, 2024 10:00 AM AMBULATORY - MEDICINE MD [facility] [place] [facility] December 12, 2024 11:30 AM AMBULATORY - MEDICINE MD [facility] [place] [facility] Dec 25, 2024 01:00 PM AMBULATORY - MEDICINE MD [facility] [place] [facility] Jan 01, 2025 09:00 AM AMBULATORY - MEDICINE MD [facility] [place] [facility] Social History: Smoking Status (Most current) and Tobacco Use (All prior to encounter date) This section includes the most current, and the historical, smoking and tobacco- related health factors from the [place] facility where the Encounter took place. Current Smoking Status This section includes the most current smoking, or tobacco-related health factor, from the [place] facility where the Encounter took place. Date/Time Current Smoking Status Comment [facility] Apr 23, 2024 10:00 AM VA-TOBACCO FORMER USER [place] [facility] [place] [facility] Tobacco Use History This section includes a history of the smoking, or tobacco-related health factors, that were collected on or before the date of the Encounter. The data comes from the [place] facility where the Encounter took place. Date/Time Smoking Status/Tobac co Use Comment [facility] Apr 23, 2024 10:00 AM VA-TOBACCO QUIT 5 TO < 15 YRS [facility] [place] [facility] Apr 13, 2023 11:00 AM VA-TOBACCO FORMER USER [facility] [place] [facility] Apr 13, 2023 11:00 AM VA-TOBACCO QUIT 5 TO < 15 YRS [facility] [place] [facility] Apr 14, 2022 01:30 PM VA-TOBACCO FORMER USER [facility] [place] [facility] Apr 14, 2022 01:30 PM VA-TOBACCO QUIT 5 TO < 15 YRS [facility] [place] [facility] Apr 10, 2021 10:00 AM VA-TOBACCO FORMER USER [facility] [place] [facility] Apr 10, 2021 10:00 AM VA-TOBACCO QUIT 5 TO < 15 YRS [facility] [place] [facility] Apr 02, 2020 10:30 AM VA-TOBACCO FORMER USER [facility] [place] [facility] Apr 02, 2020 10:30 AM VA-TOBACCO QUIT 5 TO < 15 YRS [facility] [place] [facility] Sep 29, 2018 08:52 AM VA-TOBACCO FORMER USER [facility] [place] [facility] Sep 29, 2018 08:52 AM VA-TOBACCO QUIT 15 YRS OR MORE [facility] [place] [facility] December 21, 2017 12:27 PM QUIT TOBACCO USE 1-7 YEARS AGO 5 or 6 years ago [facility] May 19, 2017 10:21 AM QUIT TOBACCO USE 1-[facility] A[facility] Aug 19, 2016 09:56 AM QUIT TOBACCO USE 1-7 YEARS AGO [facility] Feb 12, 2016 11:34 AM QUIT TOBACCO USE 1-7 YEARS AGO [facility] Aug 08, 2015 03:04 PM QUIT TOBACCO USE [facility] Aug 08, 2015 03:04 PM QUIT TOBACCO USE IN PAST YEAR pt states he stooped smmoking in the past yr. [facility] Advance Directives: All historical and current Section Date Range: From patient's date of to the date document was created. This section includes ALL of a patient's completed or amended [place] Advance and Rescinded Directives. The entries below indicate that a directive exists for the patient, but an actual copy is not included with this document. The data comes from all [place] facilities. Date Advance Directives Provider Source Jun 20, 2012 ADVANCE DIRECTIVE DISCUSSION MONIKA IZAGUIRRE [facility] Encounter Notes: All associated encounter notes This section contains the clinical notes associated to the Encounter. Date/Time Encounter Note(s) Provider Source Aug 28, 2024 10:27 AM OCCUPATIONAL THERAPY NOTE: LOCAL TITLE: OCCUPATIONAL THERAPY STANDARD TITLE: OCCUPATIONAL THERAPY NOTE DATE OF NOTE: AUG 28, 2024@10:27 ENTRY DATE: AUG 28, 2024@10:27:30 AUTHOR: PAM JEFFERSON COSIGNER: URGENCY: STATUS: COMPLETED Initial Evaluation date: Mar Progress Note Date: Treatment #: 14 Treatment time: 30 minutes Diagnosis: Pain in left Shoulder(ICD-10-CM M25.512) Provider: Irma DIAZ Treatment Precautions: Patient identified by full name and date of SUBJECTIVE: Pt reports that is good. He is not getting any shooting pains down the arm. He reports 70% improvement since initiating tx. Pain level: 1/10 at rest OBJECTIVE: THERAPEUTIC EXERCISE: *UBE 2' forward, 2' backward 2.0 *pulleys into flexion w/ 10 second hold, 1x10 *wall slides into flexion, 1x10 *D1 extension w/ green band, 1x10 *D2 flexion w/ green band, 2x10 ADDED: *horizontal abduction w/ green band, 2x10 Access Code: [email or web address] URL: [email or web address] Date: 08/28/2024 Prepared by: PARUL [facility] Exercises - Seated Shoulder Flexion AAROM with [...] 3 sets - 10 reps - Standing Shoulder Single Arm PNF D2 Flexion with Anchored Resistance - 1 x daily - 7 x weekly - 3 sets - 10 reps - Shoulder Horizontal Abduction with Anchored Resistance - 1 x daily - 7 x weekly - 3 sets - 10 reps MINUTES: 17 MANUAL THERAPY: *mobilization to upper trap/infra/subscap, seated MINUTES: 8 THERAPEUTIC DYNAMIC ACTIVITIES: MINUTES: NEUROMUSCULAR EDUCATION: MINUTES: OTHER: MINUTES: MODALITIES: *MHP to L shoulder prior to tx MINUTES: 3 [] Contraindication screen completed prior to modality [] Skin intact pre/post SELF CARE/EDUCATION: MINUTES: Patient education was provided for all aspects of care during this clinical encounter. ASSESSMENT: pt tolerated tx well this date. pt demonstrates TE w/ very good form. added horizontal abduction which he denied pain but noted fatigue. during mobilization, focused more on upper trap where there is a palpable adhesion that is ttp. overall, no tightness noted. pt reported feeling good following tx. added on another visit. may progress to discharge. pt to trial sleeping in bed. PLAN: continue w/ OT POC; modify tx as needed. every other week. pt is in agreement w/ this POC. /glenis/ Pam Jefferson, MS OTR/L, CHT Occupational Therapist Signed: 08/28/2024 16:10 PAM JEFFERSON [facility]
--- OUTSIDE RECORDS SUMMARY | 2024-09-28 23:40 | XMS_ITS | Encounter Summary ---
Author Name [facility] [place] [facility] [place] Address [address] [place] [address] Care Team Providers Care Molder Meat Name Role Phone AARON WALDEN Primary Care [...] Relationship to Policy [place] MEDICARE (WNR) MEDICARE (M) PART B Apr 24, 2013 PART B [id number] [phone] KLEBER DYE RY PATIENT MEDICARE (WNR) MEDICARE () PART B Apr 24, 2013 PART B [id number] [id number] [phone] KLEBER DYE RY PATIENT MEDICARE (WNR) MEDICARE (M) PART B Apr 24, 2013 PART B [id number] KLEBER DYE RY PATIENT MEDICARE (WNR) MEDICARE () PART A November 23, 2011 PART A [id number] KLEBER DYE RY PATIENT MEDICARE (WNR) MEDICARE () PART A November 23, 2011 PART A [id number] [phone] KLEBER DYE RY PATIENT MEDICARE (WNR) MEDICARE () PART A November 23, 2011 PART A [id number] KLEBER DYE PATIENT [employer] PLAN G PLAN G Apr 24, 2013 PLAN G [id number] KLEBER DYE PATIENT [employer] PL[employer] G PLANG Apr 24, 2013 PLANG [id number] KLEBER DYE PATIENT [employer] PL[employer] G Apr 24, 2013 PLANG [id number] KLEBER DYE PATIENT Selected Encounter This section includes the information on record at [place] for the Encounter. Date/Time Encounter Type Encounter Description Reason Pro vider Source Sep 29, 2024 03:40 AM Outpatient Encounter ADMIN PAT ACTIVTIES (MASNONCT) IHE Encounter Template Text not used by [place] Plan of Treatment: Future Appointments (+ 6 months) and Future Tests (+/- 45 days) The Plan of Treatment section includes future care activities for the patient from all [place] treatmentfacilities. This section includes future appointments and future orders which are active, pending or scheduled. Future Appointments This section includes appointments that were scheduled to occur 6 months from the date of the Encounter, up to a maximum of 20 appointments. The data comes from all [place] treatment facilities. Appointment Date/Time Appointment Type Appointme nt Facility Name Oct 04, 2024 03:00 PM AMBULATORY - MEDICINE [facility] [place] [facility] Oct 16, 2024 10:00 AM AMBULATORY MEDICINE [facility] [place] [facility] December 12, 2024 11:30 AM AMBULATORY MEDICINE [facility] [place] [facility] Dec 25, 2024 01:00 PM AMBULATORY MEDICINE [facility] [place] [facility] Jan 01, 2025 09:[address] [facility] [facility] Lab Results: +/- 30 days of the encounter This section includes the Chemistry and Hematology Lab Results on record with [place] for the patient. Radiology Reports and Pathology Reports are provided separately, in subsequent sections. Lab Results This section contains the Chemistry/Hematology Results that were resulted 30 days before or 30 daysafter the date of the Encounter. Date/Time Source Result Type Result - Unit Interpretation Reference Range Specimen Type Comment Oct 16, 2024 10:36 AM [facility] URINALYSIS CLEAN CATCH URINE Specimen Type: URINE Comment: If Glucose = >500 and Ketones are positive, please alert the Physician. Ordering Provider: AARON WALDEN Report Released Date/Time: Oct 16, 2024 10:21 AM Reporting Lab: [facility] [address] [facility] [address] Performing Lab: [facility] [address] [facility] [address] UA COLOR Yellow Yellow UA APPEARANCE Clear Clear UA GLUCOSE Normal mg/dL Negative UA KETONES NEGATIVE mg/dL Negative UA BLOOD NEGATIVE mg/dL Negative UA PROTEIN NEGATIVE mg/dL Negative UA NITRITE NEGATIVE mg/dL Negative UA BILIRUBIN NEGATIVE mg/dL Negative UA SPECIFIC GRAVITY 1.019 1.016-1.022 UA pH 6.0 5.0-9.0 UA UROBILINOGEN Normal mg/dL <2.0 UA LEUKOCYTE NEGATIVE Negative Oct 04, 2024 12:21 PM [facility] LIVER FUNCTION SERUM Specimen Type: SERUM No comment entered. Ordering Provider: AARON WALDEN Report Released Date/Time: Oct 04, 2024 12:06 PM Reporting Lab: [facility] [address] [facility] [address] Performing Lab: [facility] [address] [facility] [address] PROTEIN,TOTAL 6.4 g/dL 6.0-8.3 ALBUMIN 3.5 g/dL 3.5-5.0 ALKALINE PHOSPHATASE 66 U/L 40-150 AST 13 U/L 5-34 ALT 15 U/L BILIRUBIN, TOTAL 0.7 mg/dL 0.2-1.2 Oct 04, 2024 12:21 PM [facility] TSH SERUM Specimen Type: SERUM No comment entered. Ordering Provider: AARON WALDEN Report Released Date/Time: Oct 04, 2024 12:06 PM Reporting Lab: [facility] [address] [facility] [address] Performing Lab: [facility] [address] [facility] [address] TSH 2.11 u[IU]/mL 0.35-5.00 Oct 04, 2024 12:21 PM [facility] BASIC METABOLIC PANEL (fasting) SERUM Specime n Type: SERUM No comment entered. Ordering Provider: AARON WALDEN Report Released Date/Time: Oct 04, 2024 12:06 PM Reporting Lab: [facility] [address] [facility] [address] Performing Lab: [facility] [address] [facility] [address] UREA NITROGEN 17 mg/dL 7-25 GLUCOSE 101 mg/dL H 65-100 SODIUM 139 mmol/L 135-145 POTASSIUM 4.5 mmol/L 3.5-5.0 CHLORIDE 108 mmol/L 100-110 CO2 23 meq/L 20-30 CALCIUM 8.8 mg/dL 8.5-10.2 CREATININE, Serum 1.11 mg/dL 0.50-1.40 eGFR(CKD-EPI 2020) 68 mL/min >60 Oct 04, 2024 12:21 PM [facility] LIPID PANEL FASTING SERUM Specimen Type: SERU M No comment entered. Ordering Provider: AARON WALDEN Report Released Date/Time: Oct 04, 2024 12:06 PM Reporting Lab: [facility] [address] [facility] [address] Performing Lab: [address] [address] CHOLESTEROL 88 mg/dL TRIGLYCERIDE 84 mg/dL 0-150 LDL calculated 41 mg/dL 0-129 CHOL/HDL 2.9 HDL CHOLESTEROL 30 mg/dL L 40-60 Oct 04, 2024 12:21 PM [facility] URIC ACID SERUM Specimen Type: SERUM No comment entered. Ordering Provider: AARON WALDEN Report Released Date/Time: Oct 04, 2024 12:06 PM Reporting Lab: [facility] [address] [facility] [address] Performing Lab: [address] [address] URIC ACID 3.1 mg/dL L 3.5-7.2 Oct 04, 2024 12:21 PM [facility] MICROSCOPIC AUTOMATED, URINE URINE Specimen T ype: URINE Comment: If Glucose = >500 and Ketones are positive, please alert the Physician. Ordering Provider: AARON WALDEN Report Released Date/Time: Oct 04, 2024 12:06 PM Reporting Lab: [facility] [address] [facility] [address] Performing Lab: [facility] [address] [facility] [address] UA WBC 0-5 /[HPF] 0-5 UA MUCUS FEW /[LPF] Trace UA HYALINE CASTS 5-9 /[LPF] H 0-2 UA RBC 6-10 /[HPF] H 0-3 Oct 04, 2024 12:21 PM [facility] CBC AND DIFF (AUTO) BLOOD Specimen Type: BLOO D No comment entered. Ordering Provider: AARON WALDEN Report Released Date/Time: Oct 04, 2024 12:06 PM Reporting Lab: [facility] [address] [facility] [address] Performing Lab: [facility] [address] [facility] [address] WBC 6.37 10*3/uL 4.50-11.00 RBC 3.82 10*6/uL L 4.23-5.66 HGB 12.1 g/dL L 12.8-17 HCT 36.2 L 39.2-50.4 MCV 94.8 fL 82-99 MCHC 33.4 g/dL 30.8-35.1 PLT 219 10*3/uL 140-360 RDW-CV 13.2 12.0-16.0 MONO, ABS 0.48 10*3/uL 0.30-1.10 MCH 31.7 pg 26.2-32.6 NEUT % 61.8 43.7-75.8 LYMPH % 25.7 14.0-42.3 MONO % 7.5 5.1-13.7 EOS % 4.2 0.4-6.8 BASO % 0.6 0.1-2.0 NEUT, ABS 3.93 10*3/uL 2.20-7.60 LYMPH, ABS 1.64 10*3/uL 1.00-3.20 EOS, ABS 0.27 10*3/uL 0.03-0.44 BASO, ABS 0.04 10*3/uL 0.01-0.13 IMMATURE GRAN % 0.2 0.0-0.7 IMMATURE GRAN, ABS 0.01 10*3/uL 0.00-0.0 6 NRBC % 0.0 0.0-0.0 NRBC, ABS 0.00 10*3/uL 0.00-0.00 Oct 04, 2024 12:21 PM [facility] URINALYSIS CLEAN CATCH URINE Specimen Type: U RINE Comment: If Glucose = >500 and Ketones are positive, please alert the Physician. Ordering Provider: AARON WALDEN Report Released Date/Time: Oct 04, 2024 12:06 PM Reporting Lab: [address] [address] Performing Lab: [address] [address] UA COLOR Yellow Yellow UA APPEARANCE Clear Clear UA GLUCOSE Normal mg/dL Negative UA KETONES NEGATIVE mg/dL Negative UA BLOOD SMALL mg/dL Negative UA PROTEIN NEGATIVE mg/dL Negative UA NITRITE NEGATIVE mg/dL Negative UA BILIRUBIN NEGATIVE mg/dL Negative UA SPECIFIC GRAVITY 1.017 1.016-1.022 UA pH 5.5 5.0-9.0 UA UROBILINOGEN Normal mg/dL <2.0 UA LEUKOCYTE NEGATIVE Negative Social History: Smoking Status (Most current) and Tobacco Use (All prior to encounter date) This section includes the most current, and the historical, smoking and tobacco- related health factors from the [place] facility where the Encounter took place. Current Smoking Status This section includes the most current smoking, or tobacco-related health factor, from the [place] facility where the Encounter took place. Date/Time Current Smoking Status Comment Facil ity Apr 23, 2024 10:00 AM VA-TOBACCO FORMER USER [facility] Tobacco Use History This section includes a history of the smoking, or tobacco-related health factors, that were collected on or before the date of the Encounter. The data comes from the [place] facility where the Encounter took place. Date/Time Smoking Status/Tobac co Use Comment Facility Apr 23, 2024 10:00 AM VA-TOBACCO QUIT 5 TO < 15 YRS [facility] [place] [facility] Apr 13, 2023 11:00 AM VA-TOBACCO FORMER USER [facility] [place] [facility] Apr 13, 2023 11:00 AM VA-TOBACCO QUIT 5 TO < 15 YRS [facility] [place] [facility] Apr 14, 2022 01:30 PM VA-TOBACCO FORMER USER [facility] [place] [facility] Apr 14, 2022 01:30 PM VA-TOBACCO QUIT 5 TO < 15 YRS [facility] [place] [facility] Apr 10, 2021 10:00 AM VA-TOBACCO FORMER USER [facility] [place] [facility] Apr 10, 2021 10:00 AM VA-TOBACCO QUIT 5 TO < 15 YRS [facility] [place] [facility] Apr 02, 2020 10:30 AM VA-TOBACCO FORMER USER [facility] [place] [facility] Apr 02, 2020 10:30 AM VA-TOBACCO QUIT 5 TO < 15 YRS [facility] [place] [facility] Sep 29, 2018 08:52 AM VA-TOBACCO FORMER USER [facility] [place] [facility] Sep 29, 2018 08:52 AM VA-TOBACCO QUIT 15 YRS OR MORE [facility] [place] [facility] December 21, 2017 12:27 PM QUIT TOBACCO USE 1-7 YEARS AGO 5 or 6 years ago [facility] [place] [facility] May 19, 2017 10:21 AM QUIT TOBACCO USE 1-7 YEARS AGO [facility] [place] [facility] Aug 19, 2016 09:56 AM QUIT TOBACCO USE 1-7 YEARS AGO [facility] [place] [facility] Feb 12, 2016 11:34 AM QUIT TOBACCO USE 1-7 YEARS AGO [facility] [place] [facility] Aug 08, 2015 03:04 PM QUIT TOBACCO USE 1-7 YEARS AGO [facility] [place] [facility] Aug 08, 2015 03:04 PM QUIT TOBACCO USE IN PAST YEAR pt states he stooped smmoking in the past yr. [facility] [place] [facility] Advance Directives: All historical and current Section Date Range: From patient's date of to the date document was created. This section includes ALL of a patient's completed or amended [place] Advance and Rescinded Directives. The entries below indicate that a directive exists for the patient, but an actual copy is not included with this document. The data comes from all [place] facilities. Date Advance Directives Provider Source Jun 20, 2012 ADVANCE DIRECTIVE DISCUSSION MONIKA IZAGUIRRE [facility] Pathology Reports: +/- 30 days of the encounter Pathology Reports For cases when an order for pathology services may have been completed prior to the date of the Encounter, the report list includes the Pathology Reports that were completed up to 30 days before dateof the Encounter. For cases when an order for pathology services may have been completed after the date of the Encounter, the report list also includes the Pathology Reports that were completed up to30 days after date of the Encounter. The data comes from all [place] treatment facilities. Date/Time Pathology Report Provider Source Oct 16, 2024 10:36 AM LR MICROBIOLOGY RE PORT: Reporting Lab: [facility] [CLIA# [id number]] [address] [place] [id number] Accession [UID]: [id number] [[id number]] Received: Oct 16, 2024@10:36 Collection sample: URINE CLEAN CATCH Collection date: Oct 16, 2024 10:36 Site/Specimen: URINE Provider: AARON WALDEN Test(s) ordered: URINE CULTURE(MWROX).......... completed: Oct 19, 2024 09:18 * BACTERIOLOGY FINAL REPORT => Oct 19, 2024 09:18 TECH CODE: [id number] Bacteriology Remark(s): Culture in progress NO GROWTH IN 24 HOURS, FINAL REPORT TO FOLLOW. FINAL AEROBIC REPORT: NO GROWTH =--=--=--=--=--=--=--=--= --=--=--=--=--=--=--=--=- -=--=--=--=--=--=--=--=-- =-- Performing Laboratory: Bacteriology Report Performed By: [facility] [CLIA# [id number]] [address] [place] [address] [facility] Encounter Notes: All associated encounter notes This section contains the clinical notes associated to the Encounter. Date/Time Encounter Note(s) Provider Source Sep 29, 2024 03:40 AM PHARMACY NOTE: LOCAL TITLE: V1 PHARMACY CUSTOMER CARE MEDICATION RENEWAL STANDARD TITLE: PHARMACY NOTE DATE OF NOTE: SEP 29, 2024@03:40 ENTRY DATE: SEP 29, 2024@03:40:19 AUTHOR: CARO HERNÁNDEZ EXP COSIGNER: URGENCY: STATUS: COMPLETED V1 PHARMACY CUSTOMER CARE MEDICATION RENEWAL Has ADDENDA Date: Sep Division: [facility] referred by Pharmacy Call Center for medication renewal: Non-controlled/maintenanc e medication Medications requested: [id number] CILOSTAZOL 50MG TAB [id number] CLOPIDOGREL BISULFATE 75MG TAB Defer to primary care provider To be mailed . Please review and renew if appropriate. *This note was generated by [facility] Pharmacy Customer Care. If you have any questions or need assistance, do not contact this author. Please refer all questions to your local, on-site pharmacy departments. /tyra HERNÁNDEZ CPhT Code And Test Clerk, [place]/Pharmacy Customer Care Signed: 09/29/2024 03:40 Receipt Acknowledged By: 10/03/2024 08:19 /glenis/ Merly Matthews RN, BSN Primary Care 09/29/2024 10:53 /glenis/ Aaron Walden MD Staff Physician 09/29/2024 ADDENDUM STATUS: COMPLETED Done. /glenis/ Aaron Walden MD Staff Physician Signed: 09/29/2024 10:53 CARO HERNÁNDEZ [facility]
--- OUTSIDE RECORDS SUMMARY | 2024-11-21 07:30 | XMS_ITS | Encounter Summary ---
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 Name Role Phone AARON WALDEN Primary [...] PART B Apr 24, 2013 PART B [id number] KLEBER DYE RY PATIENT MEDICARE (WNR) MEDICARE () PART B Apr 24, 2013 PART B [id number] [id number] KLEBER DYE RY PATIENT MEDICARE (WNR) MEDICARE () PART B Apr 24, 2013 PART B [id number] KLEBER DYE RY PATIENT MEDICARE (WNR) MEDICARE () PART A November 23, 2011 PART A [id number] KLEBER DYE RY PATIENT MEDICARE (WNR) MEDICARE () PART A November 23, 2011 PART A [id number] [id number] [id number] KLEBER DYE RY PATIENT MEDICARE (WNR) MEDICARE () PART A November 23, 2011 PART A [id number] KLEBER DYE PATIENT [employer] [place] [employer] PLAN G PLAN G Apr 24, 2013 PLAN G [id number] [phone] KLEBER DYE PATIENT [employer] [place] [employer] PLAN G Apr 24, 2013 PLANG [id number] KLEBER DYE PATIENT [employer] [place] [employer] PLAN G PLANG Apr 24, 2013 PLANG [id number] KLEBER DYE PATIENT Selected Encounter This section includes the information on record at [place] for the Encounter. Date/Time Encounter Type Encounter Description Reason Provider Source Nov 21, 2024 11:30 AM OFFICE O/P EST LOW 20 MIN PRIMARY CARE/MEDICINE ICD-10-CM I63.9 Cerebral infarction, unspecified AARON WALDEN IHE Encounter Template Text not used by [place] Assessments - Encounter Diagnoses This section includes the primary and secondary diagnoses documented for the Encounter. Date/Time Primary/Secondary Diagnosis Diagnosis Name Provider Source Feb 28, 2025 01:26 PM PRIMARY Cerebral infarction, unspecified [facility]ARON WALDEN [place] [facility] [place] [facility] Plan of [...] 12, 2024 11:30 AM AMBULATORY - MEDICINE [place] [facility] Jan 01, 2025 09:00 AM AMBULATORY - [place]ICINE [place] [facility] Feb 13, 2025 12:30 PM AMBULATORY - NONE [place] [facility] Feb 26, 2025 02:30 PM AMBULATORY - [place]ICINE [place] [facility] Mar 19, 2025 09:00 AM AMBULATORY - [place]ICINE [place] [facility] Mar 27, 2025 01:30 PM AMBULATORY - MEDICINE [place] [facility] Mar 28, 2025 10:30 AM AMBULATORY - MEDICINE [facility] [place] [place] [facility] Apr 02, 2025 02:00 PM AMBULATORY - MEDICINE [facility] [place] [place] [facility] Apr 15, 2025 10:30 AM AMBULATORY - NONE [place] [facility] [place] [facility] Apr 23, 2025 10:00 AM AMBULATORY - MEDICINE [facility] [place] [place] [facility] May 07, 2025 11:30 AM AMBULATORY - MEDICINE [facility] [place] [place] [facility] Vital Signs: All taken on the encounter date This section contains inpatient and outpatient Vital Signs collected on the date of the Encounter. Date/Time Temperature Pulse Blood Pressure Respiratory Rate SP02 Pain Height Weight Body Mass Index Source Nov 21, 2024 11:18 AM 97.8 100 122/62 16 99 0 70.5 208.5 30 [place] [facility] Social History: Smoking Status (Most current) and Tobacco Use (All prior to encounter date) This section includes the most current, and the historical, smoking and tobacco- related health factors from the [place] facility where the Encounter took place. Current Smoking Status This section includes the most current smoking, or tobacco-related health factor, from the [place] facility where the Encounter took place. Date/Time Current Smoking Status Comment [facility] Apr 23, 2024 10:00 AM VA-TOBACCO FORMER USER [place] [facility] [...] VA-TOBACCO FORMER USER [place] [facility] Apr 02, 2020 10:30 AM VA-TOBACCO QUIT 5 TO < 15 YRS [place] [facility] [place] [facility] Sep 29, 2018 08:52 AM VA-TOBACCO FORMER USER [place] [facility] Sep 29, 2018 08:52 AM VA-TOBACCO QUIT 15 YRS OR MORE [place] [facility] December 21, 2017 12:27 PM QUIT TOBACCO USE 1-7 YEARS AGO 5 or 6 years ago [place] [facility] May 19, 2017 10:21 AM QUIT TOBACCO USE 1-7 YEARS AGO [place] [facility] [place] [facility] Aug 19, 2016 09:56 AM QUIT TOBACCO USE 1-7 YEARS AGO [place] [facility] Feb 12, 2016 11:34 AM QUIT TOBACCO USE 1-7 YEARS AGO [place] [facility] [place] [facility] Aug 08, 2015 03:04 PM QUIT TOBACCO USE 1-7 YEARS AGO [place] [facility] Aug 08, 2015 03:04 PM QUIT TOBACCO USE IN PAST YEAR pt states he stooped smmoking in the past yr. [place] [facility] [facility] Advance Directives: All historical and current Section Date Range: From patient's date of to the date document was created. This section includes ALL of a patient's completed or amended [place] Advance and Rescinded Directives. The entries below indicate that a directive exists for the patient, but an actual copy is not included with this document. The data comes from all [place] facilities. Date Advance Directives Provider Source Jun 20, 2012 ADVANCE DIRECTIVE DISCUSSION MONIKA IZAGUIRRE [facility] Encounter Notes: All associated encounter notes This section contains the clinical notes associated to the Encounter. 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, 20% blockage left ICA Discharged home Follow-up with ophthalmology and vascular surgery /glenis/ Aaron Walden MD Staff Physician Signed: 11/21/2024 13:09 AARON WALDEN [place] [facility] Nov 21, 2024 11:46 AM PHYSICIAN NOTE: LOCAL TITLE: MD NOTE STANDARD TITLE: PHYSICIAN NOTE DATE OF NOTE: NOV 21, 2024@11:46 ENTRY DATE: NOV 21, 2024@11:46:28 AUTHOR: AARON WALDEN EXP COSIGNER: URGENCY: STATUS: COMPLETED Patient Name: SANCHO DYE VITALS: Patient temperature: 97.8 F [36.6 C] (11/21/2024 11:18) Blood pressure: 122/62 (11/21/2024 11:18) Patient height: 70.5 in [179.1 cm] (11/21/2024 11:18) Patient weight: 208.5 lb [94.57 kg] (11/21/2024 11:18) Patient BMI: BMI: 29.6 Patient pulse: 100 (11/21/2024 11:18) Patient respiration: 16 (11/21/2024 11:18) Patient Pulse Oximetry: 99% (11/21/2024 11:18) Pain Ratin (11/21/2024 11:18) Active [facility] Medications: Active Outpatient Medications (including [...] No Active 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 He was referred to vascular surgeon who he saw yesterday. By verbal report from patient, vascular said no intervention is indicated and he should follow-up with cardiology Dr. abernathy for continued monitoring. Patient feels well today with no complaints. 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 Review of systems No chest pain or dyspnea No abdominal pain No trouble urinating No fever or chills No cough Physical examination Well-developed well-nourished male in no acute distress Coronary no murmur Lungs clear Carotid no bruit No peripheral edema Assessment and plan: 1. History of stroke: No acute neurologic symptoms Plan: Continue cardiology monitoring of vascular obstruction Follow-up primary care 6 months clinic visit and lab Medication Reconciliation: Outpatient: Has the patient been taking medications as documented in the EMLR? YES: The patient has been taking medications as documented in the EMLR. Essential Medication List for Review used to complete this medication reconciliation. INCLUDED IN THIS LIST: Alphabetical list of active outpatient prescriptions dispensed from this [place] (local) and dispensed from another [place] or [facility] facility (remote) as well as inpatient orders [...] /glenis/ Aaron Walden MD Staff Physician Signed: 11/21/2024 11:51 AARON WALDEN [facility] Nov 21, 2024 11:38 AM PREVENTIVE MEDICINE NURSING NOTE: LOCAL TITLE: CLINICAL REMINDERS/NURSING STANDARD TITLE: PREVENTIVE MEDICINE NURSING NOTE DATE OF NOTE: NOV 21, 2024@11:38 ENTRY DATE: NOV 21, 2024@11:38:25 AUTHOR: OSMANY PALOMINO EXP COSIGNER: URGENCY: STATUS: COMPLETED HIV Screening: HIV Testing was done outside of this facility: HIV test was negative. DATE: Month/Year December/2013 /glenis/ OSMANY PALOMINO LPN LPN Signed: 11/21/2024 11:39 OSMANY PALOMINO [facility]
--- OUTSIDE RECORDS SUMMARY | 2025-01-01 05:00 | XMS_ITS | Encounter Summary ---
Author Name [facility] [place] [facility] [place] Address [address] [place] [address] Care Team Providers Care Welfare Interviewer Name Role Phone LETICIA WALDEN Primary Care [...] PART B Apr 24, 2013 PART B [id number] [phone] KLEBER DYE RY PATIENT MEDICARE (WNR) MEDICARE () PART B Apr 24, 2013 PART B [id number] [id number] [phone] KLEBER DYE RY PATIENT MEDICARE (WNR) MEDICARE () PART B Apr 24, 2013 PART B [id number] KLEBER DYE RY PATIENT MEDICARE (WNR) MEDICARE () PART A November 23, 2011 PART A [id number] KLEBER DYE RY PATIENT MEDICARE (WNR) MEDICARE () PART A November 23, 2011 PART A [id number] [phone] KLEBER DYE RY PATIENT MEDICARE (WNR) MEDICARE () PART A November 23, 2011 PART A [id number] KLEBER DYE RY PATIENT [employer] PLAN G PLAN G Apr 24, 2013 PLAN G [id number] KLEBER DYE RY PATIENT [employer] PLAN G PLANG Apr 24, 2013 PLANG [id number] KLEBER DYE PATIENT [employer] PLAN G Apr 24, 2013 PLANG [id number] KLEBER DYE PATIENT Selected Encounter This section includes the information on record at [place] for the Encounter. Date/Time Encounter Type Encounter Description Reason Provider Source Jan 01, 2025 09:00 AM OFFICE O/P EST MOD 30 MIN OPTOMETRY ICD-10-CM L71.8 [facility] [place]ta Encounter Template Text not used by [place] Assessments - Encounter Diagnoses This section includes the primary and secondary diagnoses documented for the Encounter. Date/Time Primary/Secondary Diagnosis Diagnosis Name Provider Source Mar 30, 2025 07:59 AM PRIMARY Other rosaNHI Rao [place] [facility] [place] [facility] Mar 30, 2025 07:59 AM SECONDARY Combined forms of age-related cataract, bilateral NHI REYES [place] [facility] [place] [facility] Mar 30, 2025 07:59 AM SECONDARY Meibomian gland dysfnct left eye, upper and lower eyelids NHI REYES [place] [facility] [place] [facility] Mar 30, 2025 07:59 AM SECONDARY Meibomian gland dysfnct right eye, upper and lower eyelids NHI REYES [place] [facility] [place] [facility] Mar 30, 2025 07:59 AM SECONDARY Rhinophyma NHI REYES [place] [facility] [place] [facility] Mar 30, 2025 07:59 AM SECONDARY Trib rtnl vein occlusion, left eye, w rtnl neovas NHI REYES [place] [facility] [place] [facility] Plan of Treatment: Future Appointments [...] 20 appointments. The data comes from all [place] treatment facilities. Appointment Date/Time Appointment Type Appointme nt Facility Name Feb 13, 2025 12:30 PM AMBULATORY - NONE [place] [facility] [place] [facility] Feb 26, 2025 02:30 PM AMBULATORY [place]ICINE [place] [facility] [place] [facility] Mar 19, 2025 09:00 AM AMBULATORY - MEDICINE [place] [facility] [place] [facility] Mar 27, 2025 01:30 PM AMBULATORY - [place]ICINE [place] [facility] [place] [facility] Mar 28, 2025 10:30 AM AMBULATORY - [place]ICINE [place] [facility] [place] [facility] Apr 02, 2025 02:00 PM AMBULATORY - [place]ICINE [place] [facility] [place] [facility] Apr 15, 2025 10:30 AM AMBULATORY - NONE [place] [facility] [place] [facility] Apr 23, 2025 10:00 AM AMBULATORY - [place]ICINE [place] [facility] [place] [facility] May 07, 2025 11:30 AM AMBULATORY - [place]ICINE [place] [facility] [place] [facility] Jun 14, 2025 10:00 AM AMBULATORY - NONE [place] [facility] [place] [facility] Social History: Smoking Status (Most current) and Tobacco Use (All prior to encounter date) This section includes the most current, and the historical, smoking and tobacco- related health factors from the [place] facility where the Encounter took place. Current Smoking Status This section includes the most current smoking, or tobacco-related health factor, from the [place] facility where the Encounter took place. Date/Time Current Smoking Status Comment [facility] it Apr 23, 2024 10:00 AM VA-TOBACCO FORMER USER [place] [facility] [place] [facility] Tobacco Use History This section includes a history of the smoking, or tobacco-related health factors, that were collected on or before the date of the Encounter. The data comes from the [place] facility where the Encounter took place. Date/Time Smoking Status/Tobac co Use Comment Facility Apr 23, 2024 10:00 AM [place]-TOBACCO QUIT 5 TO < 15 YRS [facility] [place] [facility] Apr 13, 2023 11:00 AM VA-TOBACCO FORMER USER [facility] [place] [facility] Apr 13, 2023 11:00 AM VA-TOBACCO QUIT 5 TO < 15 YRS [facility] [place] [facility] Apr 14, 2022 01:30 PM VA-TOBACCO FORMER USER [facility] [place] [facility] Apr 14, 2022 01:30 PM VA-TOBACCO QUIT 5 TO < 15 YRS [facility] [place] [facility] Apr 10, 2021 10:00 AM VA-TOBACCO FORMER USER [facility] [place] [facility] Apr 10, 2021 10:00 AM VA-TOBACCO QUIT 5 TO < 15 YRS [facility] [place] [facility] Apr 02, 2020 10:30 AM VA-TOBACCO FORMER USER [facility] [place] [facility] Apr 02, 2020 10:30 AM VA-TOBACCO QUIT 5 TO < 15 YRS [facility] [place] [facility] Sep 29, 2018 08:52 AM VA-TOBACCO FORMER USER [facility] [place] [facility] Sep 29, 2018 08:52 AM VA-TOBACCO QUIT 15 YRS OR MORE [facility] [place] [facility] December 21, 2017 12:27 PM QUIT TOBACCO USE 1-7 YEARS AGO 5 or 6 years ago [facility] [place] [facility] May 19, 2017 10:21 AM QUIT TOBACCO USE 1-7 YEARS AGO [facility] [place] [facility] Aug 19, 2016 09:56 AM QUIT TOBACCO USE 1-7 YEARS AGO [facility] [place] [facility] Feb 12, 2016 11:34 AM QUIT TOBACCO USE 1-7 YEARS AGO [facility] [place] [facility] Aug 08, 2015 03:04 PM QUIT TOBACCO USE 1-7 YEARS AGO [facility] [place] [facility] Aug 08, 2015 03:04 PM QUIT TOBACCO USE IN PAST YEAR pt states he stooped smmoking in the past yr. [facility] [place] [facility] Advance Directives: All historical and current Section Date Range: From patient's date of to the date document was created. This section includes ALL of a patient's completed or amended [place] Advance and Rescinded Directives. The entries below indicate that a directive exists for the patient, but an actual copy is not included with this document. The data comes from all [place] facilities. Date Advance Directives Provider Source Jun 20, 2012 ADVANCE DIRECTIVE DISCUSSION MONIKA IZAGUIRRE [facility] Encounter Notes: All associated encounter notes This section contains the clinical notes associated to the Encounter. Date/Time Encounter Note(s) Provider Source Jan 01, 2025 10:17 AM OPTOMETRY NOTE: LOCAL TITLE: OPTOMETRY NOTE STANDARD TITLE: OPTOMETRY NOTE DATE OF NOTE: JAN 01, 2025@10:17 ENTRY DATE: JAN 01, 2025@10:17:54 AUTHOR: CHEPE REYES COSIGNER: URGENCY: STATUS: COMPLETED OPTOMETRY NOTE Has ADDENDA I saw this patient in conjunction with the student and agree to the stated findings and plan as noted below after reviewing both the history and repeating cano elements of the physical exam. 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 When he was seen here last on April 03, 2024 there was question of NVD left eye noted on exam. He was sent back to [facility] for further evaluation with plan for observation. He recently received an injection this month and has follow-up next month for repeat injection left eye. 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 Nuclear sclerotic and cortical cataracts right greater than left eye functioning well visually at present but overall functioning well visually at present. He understands he may very well require cataract surgery in the near future. Branch retinal vein occlusion now with NVD and vitreous hemorrhage being treated with serial anti-vegf injections left eye with next injection January 2025 [facility]. Plan: Patient education as noted above. Keep scheduled follow-up for ongoing injections left eye with [facility]. He understands he may very well require cataract surgery right eye in the near future. Return here in 12 months or sooner if need be. Ophthalmic medication reconciliation: He is currently not taking or prescribed any ocular medications. Alerting optometry health tech to order glasses as noted below: RX INFORMATION OD +1.00 -0.25 X115 Add:+2.75 Pzm:0.00 Dir: Prz2:0.00 Dir2: OS +1.25 -0.25 X70 Add:+2.75 Pzm:0.00 Dir: Prz2:0.00 Dir2: FITTING INFORMATION FPD: NPD: [place]:R:33.5 L:33.5 SEG HT:R:19 L:19 Tint:None Shade:None FRAME: [address] [id number] Right Lens:CR-39 VA PROGRESSIVE CR-39 Left Lens:CR-39 VA PROGRESSIVE CR-39 Medication Reconciliation: Outpatient: Has the patient been taking medications as documented in the EMLR? YES: The patient has been taking medications as documented in the EMLR. Essential Medication List for Review used to complete this medication reconciliation. INCLUDED IN THIS LIST: Alphabetical list of active outpatient prescriptions dispensed from this [facility] (local) and dispensed from another [place] or [place] facility (remote) as well as [...] JLV. Allergies/ADRs (Tool #5) FACILITY ALLERGY/ADR -------- [facility] NO KNOWN ALLERGIES [facility] No Known [facility]ies [facility] (Tool #1) INCLUDED IN THIS LIST: Alphabetical list of active outpatient prescriptions dispensed from this VA (local) and dispensed from another [place] or [place] facility (remote) as well as inpatient orders (local pending and active), local clinic medications, locally documented non-VA medications, and local prescriptions that have or been discontinued in the past 90 days. Non-VA Meds Last Documented On: December 13, 2016 NOTE The display of VA prescriptions dispensed from another VA or DoD facility (remote) is limited to active outpatient prescription entries matched to National Drug File at the originating site and may not include some items such as investigational drugs, compounds, etc. NOT INCLUDED IN THIS LIST: Medications self-entered by the patient into personal health records (i.e. [employer]) are NOT included in this list. Non-VA medications documented outside this [place], remote inpatient orders (regardless of status) and remote clinic medications are NOT included in this list. The patient and provider must always discuss medications the patient is taking, regardless of where the medication was dispensed or obtained. OUTPT ALLOPURINOL 300MG TAB (Status = Active) TAKE ONE TABLET BY MOUTH EVERY DAY FOR GOUT Rx# [id number] Last Released: 12/31/24 Qty/Days Supply: Rx Expiration Date: 07/07/25 Refills Remainin OUTPT AMMONIUM LACTATE 12% LOTION (Status = Active) APPLY SMALL AMOUNT TOPICALLY ONCE DAILY FOR DRY IRRITATED SKIN Rx# [id number] Last Released: 09/29/24 Qty/Days Supply: Rx Expiration Date: 06/08/25 Refills Remainin Indication: FOR DRY SKIN OUTPT APIXABAN 5MG TAB (Status = Active) TAKE ONE TABLET BY MOUTH TWICE DAILY Rx# [id number] Last Released: 01/01/25 Qty/Days Supply: Rx Expiration Date: 07/25/25 Refills Remainin OUTPT ATORVASTATIN CALCIUM 40MG TAB (Status = Active) TAKE ONE TABLET BY MOUTH AT BEDTIME FOR CHOLESTEROL Rx# [id number] Last Released: 01/01/25 Qty/Days Supply: Rx Expiration Date: 07/07/25 Refills Remainin OUTPT CILOSTAZOL 50MG TAB (Status = Active) TAKE ONE TABLET BY MOUTH TWICE DAILY -TAKE 30 MINUTES BEFORE MEALS OR TWO HOURS AFTER MEALS Rx# [id number] Last Released: 01/01/25 Qty/Days Supply: Rx Expiration Date: 09/30/25 Refills Remainin OUTPT CLOPIDOGREL BISULFATE 75MG TAB (Status = Active) TAKE ONE TABLET BY MOUTH EVERY DAY Rx# [id number] Last Released: 01/01/25 Qty/Days Supply: Rx Expiration Date: 09/30/25 Refills Remainin OUTPT FLUTICASONE PROP 50MCG 120D NASAL INHL (Status = Active) INSTILL 1 SPRAY INTO EACH NOSTRIL TWICE DAILY NEEDED FOR NASAL IRRITATION/INFLAMMATION Rx# [id number] Last Released: 01/01/25 Qty/Days Supply: 08/23 Rx Expiration Date: 07/13/25 Refills Remainin Indication: FOR NASAL IRRITATION/INFLAMMATION OUTPT LOSARTAN 100MG TAB (Status = Active) TAKE ONE TABLET BY MOUTH ONCE DAILY FOR BLOOD PRESSURE/HEART Rx# [id number] Last Released: 01/01/25 Qty/Days Supply: Rx Expiration Date: 07/07/25 Refills Remainin OUTPT METOPROLOL SUCCINATE 100MG SA TAB (Status = Discontinued) TAKE ONE TABLET BY MOUTH ONCE DAILY FOR BLOOD PRESSURE/HEART Rx# [id number] Last Released: 09/14/24 Qty/Days Supply: Rx Expiration Date: 12/20/24 Refills Remainin OUTPT METOPROLOL SUCCINATE 100MG SA TAB (Status = Active) TAKE ONE TABLET BY MOUTH ONCE DAILY FOR BLOOD PRESSURE/HEART Rx# [id number] Last Released: 12/31/24 Qty/Days Supply: Rx Expiration Date: 12/29/25 Refills Remainin OUTPT MULTIVITAMIN/MINERALS CAP/TAB (Status = Active) TAKE 1 TABLET BY MOUTH EVERY DAY FOR VITAMIN SUPPLEMENTATION Rx# [id number] Last Released: 01/01/25 Qty/Days Supply: Rx Expiration Date: 07/07/25 Refills Remainin OUTPT PANTOPRAZOLE NA 20MG EC TAB (Status = Active) TAKE ONE TABLET BY MOUTH EVERY DAY Rx# [id number] Last Released: 12/31/24 Qty/Days Supply: Rx Expiration Date: 07/07/25 Refills Remainin OUTPT TAMSULOSIN HCL 0.4MG CAP (Status = Active) TAKE ONE CAPSULE BY MOUTH AT BEDTIME FOR ENLARGED PROSTATE Rx# [id number] Last Released: 10/17/24 Qty/Days Supply: Rx Expiration Date: 07/25/25 Refills Remainin Indication: FOR ENLARGED PROSTATE SUPPLIES Declines printed copy of medication list now. Total time spent: Chart review, history, examining and counseling patient, entering orders, medical decision making as well as clinical documentation 36 minutes - 3 refraction = 33 minutes. /glenis/ Chepe Reyes OD CHIEF OF OPTOMETRY Signed: 01/02/2025 08:22 Receipt Acknowledged By: 01/11/2025 12:35 /es/ MANDEEP MOSELEY OPTOMETRY TECH 01/11/2025 ADDENDUM STATUS: COMPLETED Optometry Health Wood Tile Installation Helper ordered patient 1 pair(s) of PAL eyeglasses on 01/01/2025 as directed by provider. OPT HT entered consult(s) for order on behalf of provider. /glenis/ MANDEEP MOSELEY OPTOMETRY TECH Signed: 01/11/2025 12:36 05/09/2025 ADDENDUM STATUS: COMPLETED Possible BRS [place] Dashboard identified this [place] as a potentially eligibility for Visual Impairment Services (VIS). Upon reviewing the chart, it has been noted that the [place] has an acuity of 20/20 OU. The [place] has not reported any functional difficulties at this time. As a result, the will not be referred to VIS at this time. /glenis/ SLOANE WILKERSON/ANNY VISUAL IMPAIRMENT SERVICES DIRECTOR OF INSTITUTIONAL SALES Signed: 05/09/2025 09:57 CHEPE REYES [place] [facility] Jan 01, 2025 08:52 AM OPTOMETRY NOTE: LOCAL TITLE: OPTOMETRY NOTE STANDARD TITLE: OPTOMETRY NOTE DATE OF NOTE: JAN 01, 2025@08:52 ENTRY DATE: JAN 01, 2025@08:52:48 AUTHOR: TOM RODRIGUEZ COSIGNER: CHEPE REYES URGENCY: STATUS: COMPLETED Active problems - Computerized Problem List is the source for the followin. Microscopic haematuria 2. Shoulder pain 3. Cerebral infarction 4. Exposure to potentially hazardous substance 5. Benign Prostatic Hypertrophy without Outflow Obstruction ([facility] [id number]) 6. Impaired fasting glucose 7. Chronic dermatitis 8. AF- Atrial Fibrillation ([facility] [id number]) 9. Coronary artery disease 10. Essential hypertension 11. Hypercholesterolemia 12. Gout 13. Gastro-esophageal reflux disease 14. History of colonic polyp 15. Erectile dysfunction Active Outpatient Medications (including Supplies): Active Outpatient Medications Status = 1) ALLOPURINOL 300MG TAB TAKE ONE TABLET [...] AT ACTIVE BEDTIME Indication: FOR ENLARGED PROSTATE Allergies: Patient has answered NKA All medications including those prescribed by outside VA's, community providers, and all OTC meds were reviewed and reconciled with patient to the best of their abilities. This 79 year old MALE is seen today for CEE. TORO: 11/26/2024 Chief Complaint: Stuart presents post seeing [facility] and receiving injections for his hemorrhaging in the back of his eyes. He has his a couple weeks ago and has his next one on 02/18. The Dr from [facility] seems that his ocular health is improving and might receive some of his vision back. Currently using Systane lubricating drops. OHx: inferior BRAO OS - history of TIA hollenhorst plaque - 6:30 ONH, possibly NVD 4:00 Cataracts OU Rosacea with rhinophyma and MGD OU (-) Pain: (-) SHIPMAN: (-) Diplopia: (-) Flashes: (-) Floaters: (+) Amaurosis Fugax/Tia's: refer above history (-) Eye Injury: (-) Eye Surgery: (-) TBI FOHx: (-) Glaucoma/ARMD/Blindness VITALS (most recent, as listed in the electronic record): B/P: 122/62 (11/21/2024 11:18) Pulse: 100 (11/21/2024 11:18) Temperature: 97.8 F [36.6 C] (11/21/2024 11:18) Weight: 208.5 lb [94.57 kg] (11/21/2024 11:18) Height: 70.5 in [179.1 cm] (11/21/2024 11:18) BMI: BMI: 29.6 PERTINENT LABS: HEMOGLOBIN A1C TREND No data available (-) Smoker/Length of Time/PPD: Current Rx with last BCVA: OD: +1.00 -0.25 axis 115 20/50+ OS: +1.25 -0.25 axis 070 20/60-2 +2.75 add 20/20 DVA ( )sc ( x )cc - phoropter OD: 20/20-2 OS: 20/30 Pupils: PERRL (-)APD EOMs: SAFE OU, (-)Pain/Diplopia CVF (facial, peripheral): FTFC OU Subjective Refraction: OD: +1.00 -0.25 axis 115 20/20-2 OS: +1.25 -0.25 axis 070 20/30 +2.75 add 20/20 All the above performed by student, reviewed by attending Anterior segment: Performed by student, repeated by attending Adnexa: rhinophyma Lids: telangiectasia, MGD1-2+ OU Conj: injection 2+ OU Cornea: trace arcus OU AC: D&Q OU Angles: 4x4 OU Iris: flat and clear OU Tonometry: Performed by student, reviewed by attending [x ] GAT [ ] iCare [] Lezama OD 15 mmHg OS 12 mmHg Time: 9:21am Fundus exam: Dilated: Non dilated: xxx Performed by student, repeated by attending Lens: 2+ NS, 2+ ACC OU Vit: clear OU (-) PVD C/D: 0.3/0.3 OD, 0.3/0.3 OS Macula: flat and clear OU PPole: clear A/V: 2/3 Vessels: normal caliber OU Periph: not assessed Assessment/Plan: 1.Rosacea and meibomian gland dysfunction, RUL, RLL, RYAN, LLL OU - Pt. ed. on todays findings - asympotmatic at this time - continue to use Systane PRN - Monitor 2. Combined Form Cataracts OU - Pt. ed. on findings - cataracts are not visually significant and that surgery is not necessary at this time - Ed. on importance of UV protection and on symptoms of glare - Continue to monitor - consider cosult for cataract surgery at next CEE 3. Hyperopia, Regular astigmatism and presbyopia OU - Pt. ed. on todays findings - pt understands that his vision is reduced because of reduced ocular health and glasses cannot correct his vision - Ordering duplicate frames for PALs - Monitor Not assessed today: 1. H/x brnach retinal vein occlusion OS - managed by [facility] - continue follow up schedule with [facility] - continue injections - monitor - ed. pt. to return sooner than 12 months if reduced vision is noticed Return to Clinic 12 months or earlier PRN /es/ TOM RODRIGUEZ OPTOMETRY STUDENT Signed: 01/01/2025 14:43 /es/ Chepe Reyes OD CHIEF OF OPTOMETRY Cosigned: 01/02/2025 08:22 TOM RODRIGUEZ [facility]
--- OUTSIDE RECORDS SUMMARY | 2025-03-15 09:47 | XMS_ITS ---
Author Name [facility] Address [address] [place] [address] Care Team Providers Care Saddle And Side Wire Stitcher Name Role Phone AARON WALDEN Primary Care [...] PART B Apr 24, 2013 PART B [id number] KLEBER DYE RY PATIENT MEDICARE (WNR) MEDICARE () PART B Apr 24, 2013 PART B [id number] K[place] DYE RY PATIENT MEDICARE (WNR) MEDICARE () PART B Apr 24, 2013 PART B [id number] K[place] DYE RY PATIENT MEDICARE (WNR) MEDICARE () PART A November 23, 2011 PART A [id number] KLEBER DYE RY PATIENT MEDICARE (WNR) MEDICARE () PART A November 23, 2011 PART A [id number] KLE[place] DYE RY PATIENT MEDICARE (WNR) MEDICARE () PART A November 23, 2011 PART A [id number] KLEBER DYE PATIENT [employer] PLAN G PLAN G Apr 24, 2013 PLAN G [id number] [phone] KLEBER DYE PATIENT [employer] PL[employer] G PLANG Apr 24, 2013 PLANG [id number] KLEBER DYE PATIENT [employer] PL[employer] G Apr 24, 2013 PLANG [id number] KLEBER DYE PATIENT Selected Encounter This section includes the information on record at NH for the Encounter. Date/Time Encounter Type Encounter Description Reason Provider Source Mar 15, 2025 01:47 PM RN SERVICES UP TO 15 MINUTES ADMIN PAT ACTIVTIES (MASNONCT) ICD-10-CM R13.19 Other dysphagia [facility] Encounter Template Text not used by NH Assessments - Encounter Diagnoses This section includes the primary and secondary diagnoses documented for the Encounter. Date/Time Primary/Secondary Diagnosis Diagnosis Name Provider Source Mar 15, 2025 01:47 PM PRIMARY Other dysphagia [facility] Plan of Treatment: Future Appointments (+ 6 months) and Future Tests (+/- 45 days) The Plan of Treatment section includes future care activities for the patient from all [place] treatmentfacilities. This section includes future appointments and future orders which are active, pending or scheduled. Future Appointments This section includes appointments that were scheduled to occur 6 months from the date of the Encounter, up to a maximum of 20 appointments. The data comes from all [place] treatment facilities. Appointment Date/Time Appointment Type Appointme nt Facility Name Mar 19, 2025 09:00 AM AMBULATORY - MEDICINE [place] [facility] Mar 27, 2025 01:30 PM AMBULATORY - MEDICINE [place] [facility] [place] [facility] Mar 28, 2025 10:30 AM AMBULATORY - MEDICINE [place] [facility] [place] [facility] Apr 02, 2025 02:00 PM AMBULATORY - MEDICINE [place] [facility] [place] [facility] Apr 15, 2025 10:30 AM AMBULATORY - NONE [place] [place] [facility] Apr 23, 2025 10:00 AM AMBULATORY - MEDICINE [place] [facility] May 07, 2025 11:30 AM AMBULATORY - MEDICINE [place] [facility] Jun 14, 2025 10:00 AM AMBULATORY - NONE [place] [facility] Jul 05, 2025 11:00 AM [facility] Jul 05, 2025 01:00 PM AMBULATORY [facility] Jul 16, 2025 10:30 AM AMBULATORY - MEDICINE [facility] NTRL TRN [facility] Active, Pending, and Scheduled Orders This section includes a listing of several types of active, pending, and scheduled orders, including clinic medications orders, diagnostic test orders, procedure orders and consult orders; where the start date of the order is 45 days before the date of the Encounter or 45 days after the date of theEncounter. The data comes from all [facility] facilities. Test Date/Time Test Type Test Details Facility Name Apr 13, 2025 12:00 AM Laboratory - Chemistry Order LIPID PANEL FASTING BLOOD (SST-SERUM) [facility] [place] [place] [facility] Apr 13, 2025 12:00 AM Laboratory - Chemistry Order URINALYSIS CLEAN CATCH URINE [facility] Apr 13, 2025 12:00 AM Laboratory - Chemistry Order TSH BLOOD (SST-SERUM) [facility] Apr 13, 2025 12:00 AM Laboratory - Chemistry Order LIVER FUNCTION BLOOD (SST-SERUM) [facility] Apr 23, 2025 10:29 AM Consult Order ACUPUNCTUR E/NHM OUTPT Cons Parts Counter Representative's Choice [facility] Lab Results: +/- 30 days of the encounter This section includes the Chemistry and Hematology Lab Results on record with NH for the patient. Radiology Reports and Pathology Reports are provided separately, in subsequent sections. Lab Results This section contains the Chemistry/Hematology Results that were resulted 30 days before or 30 daysafter the date of the Encounter. Date/Time Source Result Type Result - Unit Interpretation Reference Range Specimen Type Comment Apr 02, 2025 02:25 PM [facility] LYME SEROLOGY PANEL SERUM Specimen Type: SERUM Comment: The LYME SEROLOGY PANEL was performed using the FDA-approved Todd JUSTIN Borrelia burdorferi modified two-tier test system. This modified methodology uses a second EIA in place of a western immunoblot assay, which the FDA has determined is substantially equivalent to or better than standard two-tier testing using western blot. Supplemental testing with a second EIA meets CDC guidelines for Lyme disease testing. Performance characteristics of the panel were validated at the [facility]. Results are considered positive only if the initial screening EIA is positive or equivocal, and either or both supplemental EIAs (for IgM and IgG) are positive. Diagnosis of Lyme disease should not be based solely on laboratory results. Clinical and exposure history must be considered. Positive antibody results reflect prior immunologic exposure, and do not necessarily indicate active infection. False positive results are possible in patients with other spirochetal infections, infectious mononucleosis, and connective tissue disorders. Negative results do not exclude B. burgdorferi infection. Only 10-40% of patients with erythema migrans alone have detectable antibodies. False negative results are possible, if specimens are drawn too soon after infection before an antibody response. Antibody induction may be aborted by early antibiotic therapy. Results in immunosuppressed individuals should be interpreted with caution. If Lyme disease is strongly suspected, but antibody was not detected, a second specimen collected about 2-4 weeks after the first should be tested. This test is NOT for use in screening individuals without signs, symptoms or exposure history. Physicians should report all cases of Lyme disease to their state and local health departments, if applicable. Ordering Provider: AARON WALDEN Report Released Date/Time: Apr 02, 2025 02:19 PM Reporting Lab: [address] [address] Performing Lab: [address] [address] TIER 1 LYME SCREENING EIA Negative Negat shannen LYME AB FINAL INTERPRETATION Negative Ne gative Apr 02, 2025 02:25 PM [facility] URIC ACID SERUM Specimen Type: SERUM No comment entered. Ordering Provider: AARON WALDEN Report Released Date/Time: Apr 02, 2025 02:19 PM Reporting Lab: [address] [address] Performing Lab: [facility] [address] [address] URIC ACID 3.8 mg/dL 3.7-7.7 Apr 02, 2025 02:25 PM [facility] BASIC METABOLIC PANEL (non-fasting) SERUM Spe cimen Type: SERUM No comment entered. Ordering Provider: AARON WALDEN Report Released Date/Time: Apr 02, 2025 02:22 PM Reporting Lab: [facility] [address] [address] Performing Lab: [address] [address] UREA NITROGEN 20 mg/dL 8-26 GLUCOSE 103 mg/dL H 65-100 SODIUM 140 mmol/L 136-145 POTASSIUM 4.9 mmol/L 3.5-5.1 CHLORIDE 108 mmol/L H 98-107 CO2 27 meq/L 23-31 CALCIUM 9.0 mg/dL 8.8-10 CREATININE, Serum 1.47 mg/dL H 0.72-1.25 eGFR(CKD-EPI 2020) 49 mL/min L >60 ANION GAP <6 meq/L L 6-16 Apr 02, 2025 02:25 PM [facility] CBC AND DIFF (AUTO) BLOOD Specimen Type: BLOO D No comment entered. Ordering Provider: AARON WALDEN Report Released Date/Time: Apr 02, 2025 02:19 PM Reporting Lab: [address] [address] Performing Lab: [address] [address] WBC 8.28 10*3/uL 4.50-11.00 RBC 3.95 10*6/uL L 4.23-5.66 HGB 12.3 g/dL L 12.8-17 HCT 37.8 L 39.2-50.4 MCV 95.7 fL 82-99 MCHC 32.5 g/dL 30.8-35.1 PLT 257 10*3/uL 140-360 MPV 10.0 fL 9.2-12.4 RDW-CV 13.6 12.0-16.0 MONO, ABS 0.64 10*3/uL 0.30-1.10 MCH 31.1 pg 26.2-32.6 NEUT % 55.8 43.7-75.8 LYMPH % 29.2 14.0-42.3 MONO % 7.7 5.1-13.7 EOS % 6.3 0.4-6.8 BASO % 0.6 0.1-2.0 NEUT, ABS 4.62 10*3/uL 2.20-7.60 LYMPH, ABS 2.42 10*3/uL 1.00-3.20 EOS, ABS 0.52 10*3/uL H 0.03-0.44 BASO, ABS 0.05 10*3/uL 0.01-0.13 IMMATURE GRAN % 0.4 0.0-0.7 IMMATURE GRAN, ABS 0.03 10*3/uL 0.00-0.0 6 NRBC % 0.0 0.0-0.0 NRBC, ABS 0.00 10*3/uL 0.00-0.00 Social History: Smoking Status (Most current) and Tobacco Use (All prior to encounter date) This section includes the most current, and the historical, smoking and tobacco- related health factors from the NH facility where the Encounter took place. Current Smoking Status This section includes the most current smoking, or tobacco-related health factor, from the NH facility where the Encounter took place. Date/Time Current Smoking Status Comment [facility] Apr 23, 2024 10:00 AM VA-TOBACCO QUIT 5 TO < 15 YRS [facility] Tobacco Use History This section includes a history of the smoking, or tobacco-related health factors, that were collected on or before the date of the Encounter. The data comes from the NH facility where the Encounter took place. Date/Time Smoking Status/Tobac co Use Comment Facility Apr 23, 2024 10:00 AM VA-TOBACCO QUIT 5 TO < 15 YRS [facility] [place] [facility] Apr 13, 2023 11:00 AM VA-TOBACCO FORMER USER [place] [facility] [place] [facility] Apr 13, 2023 11:00 AM VA-TOBACCO QUIT 5 TO < 15 YRS [facility] [place] [facility] Apr 14, 2022 01:30 PM VA-TOBACCO FORMER USER [facility] [place] [facility] Apr 14, 2022 01:30 PM VA-TOBACCO QUIT 5 TO < 15 YRS [facility] [place] [facility] Apr 10, 2021 10:00 AM VA-TOBACCO FORMER USER [facility] [place] [facility] Apr 10, 2021 10:00 AM VA-TOBACCO QUIT 5 TO < 15 YRS [facility] [place] [facility] Apr 02, 2020 10:30 AM VA-TOBACCO FORMER USER [facility] [place] [facility] Apr 02, 2020 10:30 AM VA-TOBACCO QUIT 5 TO < 15 YRS [facility] [place] [facility] Sep 29, 2018 08:52 AM VA-TOBACCO FORMER USER [facility] [place] [facility] Sep 29, 2018 08:52 AM VA-TOBACCO QUIT 15 YRS OR MORE [facility] [place] [facility] December 21, 2017 12:27 PM QUIT TOBACCO USE 1-7 YEARS AGO 5 or 6 years ago [facility] [place] [facility] May 19, 2017 10:21 AM QUIT TOBACCO USE 1-7 YEARS AGO [facility] [place] [facility] Aug 19, 2016 09:56 AM QUIT TOBACCO USE 1-7 YEARS AGO [facility] [place] [facility] Feb 12, 2016 11:34 AM QUIT TOBACCO USE 1-7 YEARS AGO [facility] [place] [facility] Aug 08, 2015 03:04 PM QUIT TOBACCO USE 1-7 YEARS AGO [facility] [place] [facility] Aug 08, 2015 03:04 PM QUIT TOBACCO USE IN PAST YEAR pt states he stooped smmoking in the past yr. [place] [facility] [place] [facility] Advance Directives: All historical and current Section Date Range: From patient's date of to the date document was created. This section includes ALL of a patient's completed or amended [place] Advance and Rescinded Directives. The entries below indicate that a directive exists for the patient, but an actual copy is not included with this document. The data comes from all [place] facilities. Date Advance Directives Provider Source Jun 20, 2012 ADVANCE DIRECTIVE DISCUSSION MONIKA IZAGUIRRE [facility] Radiology Reports: +/- 30 days of the [...] the Encounter. The data comes from all [place] treatment facilities. Date/Time Radiology Report Provider Source Apr 02, 2025 02:27 PM KNEE 3 VIEWS (RIGH T): SANCHO DYE [id number] -[id number] M Exm Date: APR 02, 2025@14:27 Req Phys: AARON WALDEN Loc: [facility] PACT 2 MD (Req'g Loc) Img Loc: [facility]/BUILDING 1 Service: [place] [address] (Case [id number] COMPLETE) KNEE 3 VIEWS (RIGHT) (RAD Detailed) CPT:02748 Proc Modifiers : RIGHT Reason for Study: pain, look for injury Clinical History: Report Status: Verified Date Reported: APR 03, 2025 Date Verified: APR 03, 2025 Explosive Ordnance Disposal Technician E-Sig:/ES/MIRTA NAVAS JR Report: Study: AP weight-bearing views of the knees with lateral and sunrise views of the right knee. Comparison: None Findings: Prominent vascular calcifications are present posterior to the knee. Mild medial compartment degenerative narrowing is present with maintenance of the lateral joint compartment. The right patella is normally located with preservation of the right patellofemoral joint space. There is a small suprapatellar joint effusion present. No bony fracture, dislocation or subluxation is seen. The bony mineralization is normal. Impression: Small suprapatellar knee joint effusion with mild medial compartment degenerative narrowing, as described above. Primary Diagnostic Code: No immediate attention required Primary Interpreting Staff: MIRTA NAVAS JR, Radiologist (Explosive Ordnance Disposal Technician) /MIRTA CASIANO JR [facility] Encounter Notes: All associated encounter notes This section contains the clinical notes associated to the Encounter. Date/Time Encounter Note(s) Provider Source Mar 15, 2025 01:47 PM TELEHEALTH NOTE: LOCAL TITLE: TELE EMERGENCY CARE NOTE STANDARD TITLE: TELEHEALTH NOTE DATE OF NOTE: MAR 15, 2025@13:47:54 ENTRY DATE: MAR 15, 2025@13:47:54 AUTHOR: JOMAR PARISH EXP COSIGNER: URGENCY: STATUS: COMPLETED TELE EMERGENCY CARE NOTE Has ADDENDA Case: [id number] Type of Visit: Phone Caller/Recipient Verified Patient Primary Phone: [phone] Patient Primary Address: [address] [place] [id number] [address] [place] Current Email Address: [email or web address] Contact: JOMAR MELISSA Emergency Contact Patient Age: 79 Gender: M Chief Complaint: sore throat Phone Visit Consent Obtained Telehealth Disclosure: Visit conducted by synchronous telehealth. Patient's verbal consent obtained. Confirmed Patient's Location and Phone. Subjective: patient with six months of difficulty swallowing liquid and eating in small bites. Looking to see primary care for the provider to set up follow up for this 6 months of an issues seen by vascular today told them it has been improving with 6 months . Sore throat with relief with cough drops. Vital Signs Outcome: Transferred to Tele-EC Medical Provider Time Spent with : 5.0 /glenis/ JOMAR PARISH RN Signed: 03/15/2025 13:47 Receipt Acknowledged By: 03/15/2025 14:01 /glenis/ Merly Matthews RN, BSN Primary Care 03/16/2025 17:29 /glenis/ Aaron Walden MD Staff Physician 03/15/2025 ADDENDUM STATUS: COMPLETED Addendum: 03/19 patient to be seen by primary care at 9am /tyra PARISH RN Signed: 03/15/2025 14:32 JOMAR PARISH [facility]
--- OUTSIDE RECORDS SUMMARY | 2025-03-19 05:00 | XMS_ITS | Encounter Summary ---
Author Name [facility] Organization [facility] Address [address] [place] [address] Care Team Providers Care It Network Engineer Name Role Phone AARON WALDEN Primary Care [...] PART B Apr 24, 2013 PART B [id number] [phone] KLEBER DYE RY PATIENT MEDICARE (WNR) MEDICARE () PART B Apr 24, 2013 PART B [id number] [id number] KLE[place] DYE RY PATIENT MEDICARE (WNR) MEDICARE () PART B Apr 24, 2013 PART B [id number] KLE[place] DYE RY PATIENT MEDICARE (WNR) MEDICARE () PART A November 23, 2011 PART A [id number] [id number] KLE[place] DYE RY PATIENT MEDICARE (WNR) MEDICARE () PART A November 23, 2011 PART A [id number] KLEBER DYE RY PATIENT MEDICARE (WNR) MEDICARE () PART A November 23, 2011 PART A [id number] KLEBER DYE PATIENT [employer] [place] [employer] PLAN G PLAN G Apr 24, 2013 PLAN G [id number] KLEBER DYE RY PATIENT [employer] [place] [employer] PLAN G PLANG Apr 24, 2013 PLANG [id number] KLEBER DYE PATIENT [employer] [place] [employer] PLAN G Apr 24, 2013 PLANG [id number] KLEBER DYE PATIENT Selected Encounter This section includes the information on record at ME for the Encounter. Date/Time Encounter Type Encounter Description Reason Provider Source Mar 19, 2025 09:00 AM OFFICE O/P EST LOW 20 MIN PRIMARY CARE/MEDICINE ICD-10-CM J37.0 Chronic laryngitis AARON WALDEN Greta Encounter Template Text not used by ME Assessments - Encounter Diagnoses This section includes the primary and secondary diagnoses documented for the Encounter. Date/Time Primary/Secondary Diagnosis Diagnosis Name Provider Source Mar 19, 2025 09:30 AM PRIMARY Chronic laryngitis SHILPI ADAME E [facility] [place] [facility] Mar 19, 2025 09:30 AM SECONDARY Encounter for immunization SHILPI ADAME [facility] [place] [facility] Plan of Treatment: Future Appointments (+ 6 months) and Future Tests (+/- 45 days) The Plan of Treatment section includes future care activities for the patient from all ME treatmentfacilities. This section includes future appointments and future orders which are active, pending or scheduled. Future Appointments This section includes appointments that were scheduled to occur 6 months from the date of the Encounter, up to a maximum of 20 appointments. The data comes from all ME treatment facilities. Appointment Date/Time Appointment Type Appointme nt Facility Name Mar 27, 2025 01:30 PM AMBULATORY - MEDICINE [facility] [place] [facility] Mar 28, 2025 10:30 AM AMBULATORY - MEDICINE [facility] [place] [facility] Apr 02, 2025 02:00 PM AMBULATORY - MEDICINE [facility] [place] [facility] Apr 15, 2025 10:30 AM AMBULATORY - NONE [facility] [place] [facility] Apr 23, 2025 10:00 AM AMBULATORY - MEDICINE [facility] [place] [facility] May 07, 2025 11:30 AM AMBULATORY - MEDICINE [facility] [place] [facility] Jun 14, 2025 10:00 AM AMBULATORY - NONE [facility] [place] [facility] Jul 05, 2025 11:00 AM AMBULATORY - MEDICINE [facility] [place] [facility] Jul 05, 2025 01:00 PM AMBULATORY - MEDICINE [facility] [place] [facility] Jul 16, 2025 10:30 AM [facility] Active, Pending, and Scheduled Orders This section includes a listing of several types of active, pending, and scheduled orders, including clinic medications orders, diagnostic test orders, procedure orders and consult orders; where the start date of the order is 45 days before the date of the Encounter or 45 days after the date of theEncounter. The data comes from all ME treatment facilities. Test Date/Time Test Type Test Details Facility Name Apr 13, 2025 12:00 AM Laboratory - Chemistry Order URINALYSIS CLEAN CATCH URINE [facility] [place] [facility] Apr 13, 2025 12:00 AM Laboratory - Chemistry Order LIVER FUNCTION BLOOD (SST[facility]SERUM[facility] Apr 13, 2025 12:00 AM Laboratory - Chemistry Order TSH BLOOD (SST-SERUM) [facility] Apr 13, 2025 12:00 AM Laboratory - Chemistry Order LIPID PANEL FASTING BLOOD (SST-SERUM) [facility] Apr 23, 2025 10:29 AM Consult Order ACUPUNCTUR E/NHM OUTPT Cons Head Animal Trainer's Choice [facility] Lab Results: +/- 30 days of the encounter This section includes the Chemistry and Hematology Lab Results on record with ME for the patient. Radiology Reports and Pathology Reports are provided separately, in subsequent sections. Lab Results This section contains the Chemistry/Hematology Results that were resulted 30 days before or 30 daysafter the date of the Encounter. Date/Time Source Result Type Result - Unit Interpretation Reference Range Specimen Type Comment Apr 02, 2025 02:25 PM [facility] LYME SEROLOGY PANEL SERUM Specimen Type: [...] of the panel were validated at the [facility] Molecular Diagnostics Laboratory. Results are considered [...] Apr 02, 2025 02:19 PM Reporting Lab: [address] [address] Performing Lab: [address] [address] TIER 1 LYME SCREENING EIA Negative Negat shannen LYME AB FINAL INTERPRETATION Negative Ne gative Apr 02, 2025 02:25 PM [facility] URIC ACID SERUM Specimen Type: SERUM No comment entered. Ordering Provider: AARON WALDEN Report Released Date/Time: Apr 02, 2025 02:19 PM Reporting Lab: [address] [address] Performing Lab: [facility] [address] [facility] [address] URIC ACID 3.8 mg/dL 3.7-7.7 Apr 02, 2025 02:25 PM [facility] BASIC METABOLIC PANEL (non-fasting) SERUM Spe cimen Type: SERUM No comment entered. Ordering Provider: AARON WALDEN Report Released Date/Time: Apr 02, 2025 02:22 PM Reporting Lab: [facility] [address] [facility] [address] Performing Lab: [address] [address] UREA NITROGEN 20 mg/dL 8-26 GLUCOSE 103 mg/dL H 65-100 SODIUM 140 mmol/L 136-145 POTASSIUM 4.9 mmol/L 3.5-5.1 CHLORIDE 108 mmol/L H 98-107 CO2 27 meq/L 23-31 CALCIUM 9.0 mg/dL 8.8-10 CREATININE, Serum 1.47 mg/dL H 0.72-1.25 eGFR(CKD-EPI 2020) 49 mL/min L >60 ANION GAP <6 meq/L L 6-16 Apr 02, 2025 02:25 PM [facility] CBC AND DIFF (AUTO) BLOOD Specimen Type: BLOO D No comment entered. Ordering Provider: AARON AWLDEN Report Released Date/Time: Apr 02, 2025 02:19 PM Reporting Lab: [address] [address] Performing Lab: [address] [address] WBC 8.28 10*3/uL 4.50-11.00 RBC 3.95 10*6/uL [...] /min 94 % 0 213 lb 30 [facility] Immunizations: All administered on the encounter date This section contains immunizations associated to the Encounter. Immunization Series Date Issued Administered By Site Reaction Lot Number CVX Code Drug Instructional Systems Design Consultant Comment(s) Source COVID-19 (MODERNA), MRNA, LNP-S, PF, 50 MCG/0.5 ML (AGES 12+ YEARS) 1 Mar 19, 2025 SHILPI ADAME LEFT DELTO ID [id number] [employer] ADMINISTERE D AT [facility] TDAP Mar 19, 2025 SHILPI ADAME LEFT DELTO ID [id number] [employer] Booster for Series, ADMINISTERE D AT [facility] Social History: Smoking Status (Most current) and Tobacco Use (All prior to encounter date) This section includes the most current, and the historical, smoking and tobacco- related health factors from the ME facility where the Encounter took place. Current Smoking Status This section includes the most current smoking, or tobacco-related health factor, from the ME facility where the Encounter took place. Date/Time Current Smoking Status Comment [facility] Apr 23, 2024 10:00 AM VA-TOBACCO FORMER USER ME [facility] [place] [facility] Tobacco Use History This section includes a history of the smoking, or tobacco-related health factors, that were collected on or before the date of the Encounter. The data comes from the ME facility where the Encounter took place. Date/Time Smoking Status/Tobac co Use Comment Facility Apr 23, 2024 10:00 AM VA-TOBACCO QUIT 5 TO < 15 YRS [facility] [place] [facility] Apr 13, 2023 11:00 AM VA-TOBACCO FORMER USER [facility] [place] [facility] Apr 13, 2023 11:00 AM VA-TOBACCO QUIT 5 TO < 15 YRS [facility] [place] [facility] Apr 14, 2022 01:30 PM VA-TOBACCO FORMER USER [facility] [place] [facility] Apr 14, 2022 01:30 PM VA-TOBACCO QUIT 5 TO < 15 YRS [facility] [place] [facility] Apr 10, 2021 10:00 AM VA-TOBACCO FORMER USER [facility] [place] [facility] Apr 10, 2021 10:00 AM VA-TOBACCO QUIT 5 TO < 15 YRS [facility] [place] [facility] Apr 02, 2020 10:30 AM VA-TOBACCO FORMER USER [facility] [place] [facility] Apr 02, 2020 10:30 AM VA-TOBACCO QUIT 5 TO < 15 YRS [facility] [place] [facility] Sep 29, 2018 08:52 AM VA-TOBACCO FORMER USER [facility] [place] [facility] Sep 29, 2018 08:52 AM VA-TOBACCO QUIT 15 YRS OR MORE [facility] [place] [facility] December 21, 2017 12:27 PM QUIT TOBACCO USE 1-7 YEARS AGO 5 or 6 years ago [facility] [place] [facility] May 19, 2017 10:21 AM QUIT TOBACCO USE 1-7 YEARS AGO [facility] Aug 19, 2016 09:56 AM QUIT TOBACCO USE 1-7 YEARS AGO [facility] Feb 12, 2016 11:34 AM QUIT TOBACCO USE 1-7 YEARS AGO [facility] Aug 08, 2015 03:04 PM QUIT TOBACCO USE 1-7 YEARS AGO [facility] Aug 08, 2015 03:04 PM QUIT TOBACCO USE IN PAST YEAR pt states he stooped smmoking in the past yr. [facility] Advance Directives: All historical and current Section Date Range: From patient's date of to the date document was created. This section includes ALL of a patient's completed or amended ME Advance and Rescinded Directives. The entries below indicate that a directive exists for the patient, but an actual copy is not included with this document. The data comes from all ME facilities. Date Advance Directives Provider Source Jun 20, 2012 ADVANCE DIRECTIVE DISCUSSION MONIKA IZAGUIRRE [facility] Reports: +/- 30 days [...] the Encounter. The data comes from all ME treatment facilities. Date/Time Radiology Report Provider Source Apr 15, 2025 10:11 AM ULTRASOUND EXTREMI TY, NONVASCULAR (COMPLETE): SANCHO DYE [id number] -[id number] M Exm Date: APR 15, 2025@10:11 Req Phys: AARON WALDEN Loc: [facility] PACT 2 (Req'g Loc) Img Loc: ULTRASOUND Service: Unknown [facility] KAYLA, NIGEL [address] (Case [id number] COMPLETE) ULTRASOUND EXTREMITY, NONVASCULAR(US Detailed) CPT:36054 Proc Modifiers : RIGHT Reason for Study: look for popliteal cyst Clinical History: Report Status: Verified Date Reported: APR 15, 2025 Date Verified: APR 15, 2025 Grounds Manager E-Sig:/ES/MIRTA NAVAS JR Report: Study: Soft tissue [...] Primary Interpreting Staff: MIRTA NAVAS JR, Radiologist (Grounds Manager) /MIRTA CASIANO JR [facility] Apr 02, 2025 02:27 PM KNEE 3 VIEWS (RIGH T): SANCHO DYE [id number] -[id number] M Exm Date: APR 02, 2025@14:27 Req Phys: AARON WALDEN Loc: [facility] PACT 2 MD (Req'g Loc) Img Loc: [facility] Service: [place] [address] (Case [id number] COMPLETE) KNEE 3 VIEWS (RIGHT) (RAD Detailed) CPT:52193 Proc Modifiers : RIGHT Reason for Study: pain, look for injury Clinical History: Report Status: Verified Date Reported: APR 03, 2025 Date Verified: APR 03, 2025 Grounds Manager E-Sig:/ES/MIRTA NAVAS JR Report: Study: AP weight-bearing [...] Primary Interpreting Staff: MIRTA NAVAS JR, Radiologist (Grounds Manager) /MIRTA CASIANO JR [facility] Encounter Notes: All associated encounter [...] No Active Remote Medications for this patient crown attacher 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 /glenis/ Aaorn Walden MD Staff Physician Signed: 03/19/2025 09:30 AARON WALDEN [facility] [place] [facility] Mar 19, 2025 [...] Incontinence Screen No incontinence. /es/ DARRELL ADAME FUNCTIONAL ARCHITECT DARRELL ADAME FUNCTIONAL ARCHITECT Signed: 03/19/2025 08:44 03/19/2025 ADDENDUM STATUS: COMPLETED Td/Tdap Immunization: Administered: TDAP Date Administered: Mar 19, 2025 09:00 Series: Booster Instructional Systems Design Consultant: [employer] Lot: [id number] Exp Date: Aug 23, 2025 NDC: [id number] Admin Route/Site: INTRAMUSCULAR/LEFT DELTOID Dosage: 0.5mL Vaccine Information Statement(s): TDAP (TETANUS, DIPHTHERIA, PERTUSSIS) VACCINE VIS Aug 24, 2024 ([place]) Order By: Policy Administered By: Darrell Adame [...] Mar 19, 2025 09:00 Series: Series 1 Instructional Systems Design Consultant: [employer] Lot: [id number] Exp Date: Apr 04, 2025 NDC: [phone] Admin Route/Site: INTRAMUSCULAR/LEFT DELTOID Dosage: 0.3mL Vaccine Information Statement(s): COVID-19 MRNA VACCINE (12+ YRS) VIS Aug 24, 2024 ([place]) Order By: Policy Administered By: Darrell Adame [...] ADAME LPN Signed: 03/19/2025 09:34 DARRELL ADAME [facility]
--- OUTSIDE RECORDS SUMMARY | 2025-03-28 06:30 | XMS_ITS ---
Author Name [facility] [place] [facility] [place] Address [address] [place] [address] Care Team Providers Care Mines Inspector Name Role Phone LETICIA WALDEN Primary [...] PART B Apr 24, 2013 PART B [id number] [facility] KLEBER DYE RY PATIENT MEDICARE (WNR) MEDICARE () PART B Apr 24, 2013 PART B [id number] KLEBER DYE RY PATIENT MEDICARE (WNR) MEDICARE () PART B Apr 24, 2013 PART B [id number] KLEBER DYE RY PATIENT MEDICARE (WNR) MEDICARE () PART A November 23, 2011 PART A [id number] [phone] KLEBER DYE RY PATIENT MEDICARE (WNR) MEDICARE () PART A November 23, 2011 PART A [id number] [id number] KLEBER DYE RY PATIENT MEDICARE (WNR) MEDICARE (M) PART A November 23, 2011 PART A [id number] KLEBER DYE PATIENT [employer] [place] [employer] PLAN G PLAN G Apr 24, 2013 PLAN G [id number] KLEBER DYE RY PATIENT [employer] [place] [employer] PLAN G PLANG Apr 24, 2013 PLANG [id number] KLEBER DYE PATIENT [employer] [place] [employer] PLAN G Apr 24, 2013 PLANG [id number] KLEBER DYE PATIENT Selected Encounter This section includes the information on record at [place] for the Encounter. Date/Time Encounter Type Encounter Description Reason Provider Source Mar 28, 2025 10:30 AM OFF/OP EST NOVEMBER X REQ PHY/QHP PRIMARY CARE/MEDICINE ICD-10-CM Z71.89 Other specified counseling MERLY MATTHEWS [facility] Encounter Template Text not used by [place] Assessments - Encounter Diagnoses This section includes the primary and secondary diagnoses documented for the Encounter. Date/Time Primary/Secondary Diagnosis Diagnosis Name Provider Source Mar 28, 2025 10:35 AM PRIMARY Other specified counseling MERLY MATTHEWS [place] [facility] [place] [facility] Plan of Treatment: Future Appointments (+ 6 months) and Future Tests (+/- 45 days) The Plan of Treatment section includes future care activities for the patient from all [place] treatmentfacilities. This section includes future appointments and future orders which are active, pending or scheduled. Future Appointments This section includes appointments that were scheduled to occur 6 months from the date of the Encounter, up to a maximum of 20 appointments. The data comes from all [place] treatment facilities. Appointment Date/Time Appointment Type Appointme nt Facility Name Apr 02, 2025 02:00 PM AMBULATORY - MEDICINE [place] [facility] [place] [facility] Apr 15, 2025 10:30 AM AMBULATORY - NONE [place] [facility] [place] [facility] Apr 23, 2025 10:00 AM AMBULATORY - MEDICINE [place] [facility] [place] [facility] May 07, 2025 11:30 AM AMBULATORY - MEDICINE [place] [facility] [place] [facility] Jun 14, 2025 10:00 AM AMBULATORY - NONE [place] [facility] [place] [facility] Jul 05, 2025 11:00 AM AMBULATORY - MEDICINE [facility] Jul 05, 2025 01:00 PM AMBULATORY - MEDICINE [facility] Jul 16, 2025 10:30 AM AMBULATORY MEDICINE [facility] Active, Pending, and Scheduled Orders This section includes a listing of several types of active, pending, and scheduled orders, including clinic medications orders, diagnostic test orders, procedure orders and consult orders; where the start date of the order is 45 days before the date of the Encounter or 45 days after the date of theEncounter. The data comes from all [facility] facilities. Test Date/Time Test Type Test Details Facility Name Apr 13, 2025 12:00 AM Laboratory - Chemistry Order URINALYSIS CLEAN CATCH URINE [facility] Apr 13, 2025 12:00 AM Laboratory - Chemistry Order LIVER FUNCTION BLOOD (SST-SERUM) [facility] Apr 13, 2025 12:00 AM Laboratory - Chemistry Order TSH BLOOD (SST-SERUM) [facility] Apr 13, 2025 12:00 AM Laboratory - Chemistry Order LIPID PANEL FASTING BLOOD (SST-SERUM) [facility] Apr 23, 2025 10:29 AM Consult Order ACUPUNCTUR E/NHM OUTPT Cons Pit Shoveler's Choice [facility] Lab Results: +/- 30 days of the encounter This section includes the Chemistry and Hematology Lab Results on record with [place] for the patient. Radiology Reports and Pathology Reports are provided separately, in subsequent sections. Lab Results This section contains the Chemistry/Hematology Results that were resulted 30 days before or 30 daysafter the date of the Encounter. Date/Time Source Result Type Result - Unit Interpretation Reference Range Specimen Type Comment Apr 02, 2025 02:25 PM [facility] LYME SEROLOGY PANEL SERUM Specimen Type: [...] of the panel were validated at the [facility] Molecular Diagnostics Laboratory. Results are considered [...] local health departments, if applicable. Ordering Provider: LETICIA WALDEN Report Released Date/Time: Apr 02, 2025 02:19 PM Reporting Lab: [address] [address] Performing Lab: [address] [address] TIER 1 LYME SCREENING EIA Negative Negat shannen LYME AB FINAL INTERPRETATION Negative Ne gative Apr 02, 2025 02:25 PM [facility] URIC ACID SERUM Specimen Type: SERUM No comment entered. Ordering Provider: LETICIA WALDEN Report Released Date/Time: Apr 02, 2025 02:19 PM Reporting Lab: [address] [address] Performing Lab: [address] [address] URIC ACID 3.8 mg/dL 3.7-7.7 Apr 02, 2025 02:25 PM [facility] BASIC METABOLIC PANEL (non-fasting) SERUM Spe cimen Type: SERUM No comment entered. Ordering Provider: LETICIA WALDEN Report Released Date/Time: Apr 02, 2025 02:22 PM Reporting Lab: [facility] [address] [facility] [address] Performing Lab: [facility] [address] [facility] [address] UREA NITROGEN 20 mg/dL 8-26 GLUCOSE 103 mg/dL H 65-100 SODIUM 140 mmol/L 136-145 POTASSIUM 4.9 mmol/L 3.5-5.1 CHLORIDE 108 mmol/L H 98-107 CO2 27 meq/L 23-31 CALCIUM 9.0 mg/dL 8.8-10 CREATININE, Serum 1.47 mg/dL H 0.72-1.25 eGFR(CKD-EPI 2020) 49 mL/min L >60 ANION GAP <6 meq/L L 6-16 Apr 02, 2025 02:25 PM [facility] CBC AND DIFF (AUTO) BLOOD Specimen Type: BLOO D No comment entered. Ordering Provider: LETICIA WALDEN Report Released Date/Time: Apr 02, 2025 02:19 PM Reporting Lab: [facility] [address] [facility] [address] Performing Lab: [address] [address] WBC 8.28 10*3/uL 4.50-11.00 RBC 3.95 10*6/uL [...] 23, 2024 10:00 AM VA-TOBACCO FORMER USER [place] [facility] [place] [facility] Tobacco Use History This section includes a history of the smoking, or tobacco-related health factors, that were collected on or before the date of the Encounter. The data comes from the [place] facility where the Encounter took place. Date/Time Smoking Status/Tobac co Use Comment Facility Apr 23, 2024 10:00 AM VA-TOBACCO QUIT 5 TO < 15 YRS [facility] [place] [facility] Apr 13, 2023 11:00 AM VA-TOBACCO FORMER USER [facility] [place] [facility] Apr 13, 2023 11:00 AM VA-TOBACCO QUIT 5 TO < 15 YRS [facility] [place] [facility] Apr 14, 2022 01:30 PM VA-TOBACCO FORMER USER [facility] [place] [facility] Apr 14, 2022 01:30 PM VA-TOBACCO QUIT 5 TO < 15 YRS [facility] [place] [facility] Apr 10, 2021 10:00 AM VA-TOBACCO FORMER USER [facility] [place] [facility] Apr 10, 2021 10:00 AM VA-TOBACCO QUIT 5 TO < 15 YRS [place] [facility] [place] [facility] Apr 02, 2020 10:30 AM VA-TOBACCO FORMER USER [place] [facility] [place] [facility] Apr 02, 2020 10:30 AM VA-TOBACCO QUIT 5 TO < 15 YRS [place] [facility] [place] [facility] Sep 29, 2018 08:52 AM VA-TOBACCO FORMER USER [place] [facility] [place] [facility] Sep 29, 2018 08:52 AM VA-TOBACCO QUIT 15 YRS OR MORE [place] [facility] [place] [facility] December 21, 2017 12:27 PM QUIT TOBACCO USE 1-7 YEARS AGO 5 or 6 years ago [place] [facility] [place] [facility] May 19, 2017 10:21 AM QUIT TOBACCO USE 1-7 YEARS AGO [place] [facility] [place] [facility] Aug 19, 2016 09:56 AM QUIT TOBACCO USE 1-7 YEARS AGO [place] [facility] [place] [facility] Feb 12, 2016 11:34 AM QUIT TOBACCO USE 1-7 YEARS AGO [place] [facility] [place] [facility] Aug 08, 2015 03:04 PM QUIT TOBACCO USE 1-7 YEARS AGO [place] [facility] [place] [facility] Aug 08, 2015 03:04 PM QUIT TOBACCO USE IN PAST YEAR pt states he stooped [facility] the past [facility] Advance Directives: All historical and current [...] ULTRASOUND EXTREMI TY, NONVASCULAR (COMPLETE): SANCHO DYE [id number] -1945 M Exm Date: APR 15, 2025@10:11 Req Phys: LETICIA WALDEN Loc: [facility] PACT 2 (Req'g Loc) Img Loc: ULTRASOUND Service: [place] [address] (Case 60 COMPLETE) ULTRASOUND EXTREMITY, NONVASCULAR(US Detailed) CPT:82790 Proc Modifiers : RIGHT Reason for Study: look for popliteal cyst Clinical History: Report Status: Verified Date Reported: APR 15, 2025 Date Verified: APR 15, 2025 Eye Physician E-Sig:/ES/MIRTA NAVAS JR Report: Study: Soft tissue [...] Primary Interpreting Staff: MIRTA NAVAS JR, Radiologist (Eye Physician) /MIRTA CASIANO JR [facility] Apr 02, 2025 02:27 PM KNEE 3 VIEWS (RIGH T): SANCHO DYE [id number] -1945 M Exm Date: APR 02, 2025@14:27 Req Phys: LETICIA WALDEN Loc: [facility] PACT 2 (Req'g Loc) Img Loc: [facility] 1 Service: [place] [address] (Case 118 COMPLETE) KNEE 3 VIEWS (RIGHT) (RAD Detailed) CPT:86655 Proc Modifiers : RIGHT Reason for Study: pain, look for injury Clinical History: Report Status: Verified Date Reported: APR 03, 2025 Date Verified: APR 03, 2025 Eye Physician E-Sig:/YAYO/MIRTA NAVAS JR Report: Study: AP weight-bearing views [...] Primary Interpreting Staff: MIRTA NAVAS JR, Radiologist (Eye Physician) /MIRTA CASIANO JR [facility] Encounter Notes: All associated encounter notes This section contains the clinical notes associated to the Encounter. Date/Time Encounter Note(s) Provider Source Mar 28, 2025 10:20 AM PRIMARY CARE OUTMCLAREN [facility]UMB [facility]ION NOTE: LOCAL TITLE: AMBULATORY/OUTPATIENT CARE NOTE STANDARD TITLE: PRIMARY CARE OUTPATIENT NOTE DATE OF NOTE: MAR 28, 2025@10:20 ENTRY DATE: MAR 28, 2025@10:20:55 AUTHOR: MERLY MATTHEWS EXP COSIGNER: URGENCY: STATUS: COMPLETED came to clinic for Rt knee pain. He states that he woke up 1 week ago with RT knee pain. He states it is RT inner aspect of knee. He states it is worse when he gets up. he feels like its coming out of the joint. Hears some clicking with ambulation. Made appt for soonest appt. on Tuesday at 2pm with pcp. /yayo/ Merly Matthews RN, BSN Primary Care Signed: 03/28/2025 10:35 MERLY MATTHEWS [facility]
--- OUTSIDE RECORDS SUMMARY | 2025-04-02 10:00 | XMS_ITS | Encounter Summary ---
Author Name [facility] [place] [facility] [place] Address [address] [place] [address] Care Team Providers Care Manager Lighting Name Role Phone AARON WALDEN Primary Care [...] PART B Apr 24, 2013 PART B [id number] [phone] KLEBER DYE RY PATIENT MEDICARE (WNR) MEDICARE () PART B Apr 24, 2013 PART B [id number] [facility] [phone] [id number] KLEBER DYE RY PATIENT MEDICARE (WNR) MEDICARE () PART B Apr 24, 2013 PART B [id number] KLEBER DYE RY PATIENT MEDICARE (WNR) MEDICARE () PART A November 23, 2011 PART A [id number] KLEBER DYE RY PATIENT MEDICARE (WNR) MEDICARE () PART A November 23, 2011 PART A [id number] [id number] KLEBER DYE RY PATIENT MEDICARE (WNR) MEDICARE () PART A November 23, 2011 PART A [id number] KLEBER YDE PATIENT [employer] [place] [employer] PLAN G PLAN G Apr 24, 2013 PLAN G [id number] [phone] KLEBER DYE PATIENT [employer] [place] [employer] PLAN G PLANG Apr 24, 2013 PLANG [id number] KLEBER DYE PATIENT [employer] [place] [employer] PL[place] G Apr 24, 2013 PLANG [id number] KLEBER DYE PATIENT Selected Encounter This section includes the information on record at [place] for the Encounter. Date/Time Encounter Type Encounter Description Reason Provider Source Apr 02, 2025 02:00 PM OFFICE O/P EST LOW 20 MIN PRIMARY CARE/MEDICINE ICD-10-CM M25.561 Pain in right knee AARON WALDEN [facility] Encounter Template Text not used by [place] Assessments - Encounter Diagnoses This section includes the primary and secondary diagnoses documented for the Encounter. Date/Time Primary/Secondary Diagnosis Diagnosis Name Provider Source Apr 02, 2025 02:25 PM PRIMARY Pain in right knee AARON WALDEN [place] [facility] [place] [facility] Plan of Treatment: Future Appointments [...] Appointment Type Appointme nt Facility Name Apr 15, 2025 10:30 AM AMBULATORY - NONE [place] [facility] [place] [facility] Apr 23, 2025 10:00 AM AMBULATORY - MEDICINE [place] [facility] [place] [facility] May 07, 2025 11:30 AM AMBULATORY - MEDICINE [place] [facility] [place] [facility] Jun 14, 2025 10:00 AM AMBULATORY - NONE [place] [facility] [place] [facility] Jul 05, 2025 11:00 AM AMBULATORY - MEDICINE [place] [facility] [place] [facility] Jul 05, 2025 01:00 PM AMBULATORY - MEDICINE [facility] Jul 16, 2025 10:30 AM AMBULATORY - MEDICINE [facility] Active, Pending, and Scheduled Orders This section includes a listing of several types of active, pending, and scheduled orders, including clinic medications orders, diagnostic test orders, procedure orders and consult orders; where the start date of the order is 45 days before the date of the Encounter or 45 days after the date of theEncounter. The data comes from all [place] treatment facilities. Test Date/Time Test Type Test Details Facility Name Apr 13, 2025 12:00 AM Laboratory - Chemistry Order LIVER FUNCTION BLOOD (SST-SERUM) [facility] Apr 13, 2025 12:00 AM Laboratory - Chemistry Order TSH BLOOD (SST-SERUM) [facility] Apr 13, 2025 12:00 AM Laboratory - Chemistry Order LIPID PANEL FASTING BLOOD (SST-SERUM) [facility] Apr 13, 2025 12:00 AM Laboratory - Chemistry Order URINALYSIS CLEAN CATCH URINE [facility] Apr 23, 2025 10:29 AM Consult Order ACUPUNCTUR E/NHM OUTPT Cons Medical Coding Instructor's Choice [facility] Lab Results: +/- 30 days of [...] Type Comment Apr 02, 2025 02:25 PM [facility] LYME SEROLOGY PANEL SERUM Specimen Type: [...] of the panel were validated at the [place] [facility]. Results are considered positive [...] Apr 02, 2025 02:19 PM Reporting Lab: [facility] [address] [facility] [address] Performing Lab: [address] [address] TIER 1 LYME SCREENING EIA Negative Negat shannen LYME AB FINAL INTERPRETATION Negative Ne gative Apr 02, 2025 02:25 PM [facility] URIC ACID SERUM Specimen Type: SERUM No comment entered. Ordering Provider: AARON WALDEN Report Released Date/Time: Apr 02, 2025 02:19 PM Reporting Lab: [facility] [address] [facility] [address] Performing Lab: [address] [address] URIC ACID 3.8 mg/dL 3.7-7.7 Apr 02, 2025 02:25 PM [facility] BASIC METABOLIC PANEL (non-fasting) SERUM Spe cimen Type: SERUM No comment entered. Ordering Provider: AARON WALDEN Report Released Date/Time: Apr 02, 2025 02:22 PM Reporting Lab: [facility] [address] [facility] [address] Performing Lab: [facility] [address] [facility] [address] UREA NITROGEN 20 mg/dL 8-26 GLUCOSE 103 mg/dL H 65-100 SODIUM 140 mmol/L 136-145 POTASSIUM 4.9 mmol/L 3.5-5.1 CHLORIDE 108 mmol/L H 98-107 CO2 27 meq/L 23-31 CALCIUM 9.0 mg/dL 8.8-10 CREATININE, Serum 1.47 mg/dL H 0.72-1.25 eGFR(CKD-EPI 2020) 49 mL/min L >60 ANION GAP <6 meq/L L 6-16 Apr 02, 2025 02:25 PM [facility] CBC AND DIFF (AUTO) BLOOD Specimen Type: BLOO D No comment entered. Ordering Provider: AARON WALDEN Report Released Date/Time: Apr 02, 2025 02:19 PM Reporting Lab: [facility] [address] [facility] [address] Performing Lab: [facility] [address] [facility] [address] WBC 8.28 10*3/uL 4.50-11.00 RBC 3.95 10*6/uL [...] Height Weight Body Mass Index Source Apr 02, 2025 01:53 PM 97.4 F 74 /min 106/70 mm[Hg] 18 /min 96 % 0 208 lb 29 [facility] Social History: Smoking Status (Most current) and [...] took place. Date/Time Current Smoking Status Comment [facility] Apr 02, 2025 02:00 PM VA-TOBACCO USE FOR DIPESH CIGARETTES [facility] Tobacco Use History This section includes a history of the smoking, or tobacco-related health factors, that were collected on or before the date of the Encounter. The data comes from the [place] facility where the Encounter took place. Date/Time Smoking Status/Tobac co Use Comment Facility Apr 02, 2025 02:00 PM VA-TOBACCO USE FORMER CIGARETTES [place] [facility] [place] [facility] Apr 23, 2024 10:00 AM VA-TOBACCO FORMER USER [place] [facility] [place] [facility] Apr 23, 2024 10:00 AM VA-TOBACCO QUIT 5 TO < 15 YRS [facility] Apr 13, 2023 11:00 AM VA-TOBACCO FORMER USER [place] [facility] [place] [facility] Apr 13, 2023 11:00 AM VA-TOBACCO QUIT 5 TO < 15 YRS [facility] [place] [facility] Apr 14, 2022 01:30 PM VA-TOBACCO FORMER USER [facility] [place] [facility] Apr 14, 2022 01:30 PM VA-TOBACCO QUIT 5 TO < 15 YRS [facility] [place] [facility] Apr 10, 2021 10:00 AM VA-TOBACCO FORMER USER [facility] [place] [facility] Apr 10, 2021 10:00 AM VA-TOBACCO QUIT 5 TO < 15 YRS [facility] [place] [facility] Apr 02, 2020 10:30 AM VA-TOBACCO FORMER USER [facility] [place] [facility] Apr 02, 2020 10:30 AM VA-TOBACCO QUIT 5 TO < 15 YRS [facility] [place] [facility] Sep 29, 2018 08:52 AM VA-TOBACCO FORMER USER [place] [facility] [place] [facility] Sep 29, 2018 08:52 AM VA-TOBACCO QUIT 15 YRS OR MORE [facility] [place] [facility] December 21, 2017 12:27 PM QUIT TOBACCO USE 1-7 YEARS AGO 5 or 6 years ago [facility] [place] [facility] May 19, 2017 10:21 AM QUIT TOBACCO USE 1-7 YEARS AGO [facility] [place] [facility] Aug 19, 2016 09:56 AM QUIT TOBACCO USE 1-7 YEARS AGO [facility] [place] [facility] Feb 12, 2016 11:34 AM QUIT TOBACCO USE 1-7 YEARS AGO [facility] [place] [facility] Aug 08, 2015 03:04 PM QUIT TOBACCO USE 1-7 YEARS AGO [facility] [place] [facility] Aug 08, 2015 03:04 PM QUIT TOBACCO USE IN PAST YEAR pt states he stooped smmoking in the past yr. [place] [facility] [place] [facility] Advance Directives: All historical and [...] Source Jun 20, 2012 ADVANCE DIRECTIVE DISCUSSION JOY IZAGUIRRERADHA Monroy [facility] Radiology Reports: +/- 30 days [...] ULTRASOUND EXTREMI TY, NONVASCULAR (COMPLETE): SANCHO DYE [id number] -1945 M Exm Date: APR 15, 2025@10:11 Req Phys: AARON WALDEN Loc: [facility] PACT 2 MD (Req'g Loc) [facility] Loc: ULTRASOUND Service: [place] [address] (Case 60 COMPLETE) ULTRASOUND EXTREMITY, NONVASCULAR(US Detailed) CPT:68722 Proc Modifiers : RIGHT Reason for Study: look for popliteal cyst Clinical History: Report Status: Verified Date Reported: APR 15, 2025 Date Verified: APR 15, 2025 Cigar Packing Examiner E-Sig:/ES/MIRTA NAVAS JR Report: Study: Soft tissue [...] Primary Interpreting Staff: MIRTA NAVAS JR, Radiologist (Cigar Packing Examiner) /MIRTA CASIANO JR [facility] Apr 02, 2025 02:27 PM KNEE 3 VIEWS (RIGH T): SANCHO DYE [id number] -1945 M Exm Date: APR 02, 2025@14:27 Req Phys: AARON WALDEN Loc: [facility] PACT 2 (Req'g Loc) Im Loc: [facility]/BUILDING 1 Service: [place] [address] (Case 118 COMPLETE) KNEE 3 VIEWS (RIGHT) (RAD Detailed) CPT:85956 Proc Modifiers : RIGHT Reason for Study: pain, look for injury Clinical History: Report Status: Verified Date Reported: APR 03, 2025 Date Verified: APR 03, 2025 Cigar Packing Examiner E-Sig:/ES/MIRTA NAVAS JR Report: Study: AP weight-bearing [...] Primary Interpreting Staff: MIRTA NAVAS JR, Radiologist (Cigar Packing Examiner) /EAD MIRTA NAVAS JR [facility] Encounter Notes: All associated encounter notes This section contains the clinical notes associated to the Encounter. Date/Time Encounter Note(s) Provider Source Apr 02, 2025 02:20 PM PHYSICIAN NOTE: LOCAL TITLE: MD NOTE STANDARD TITLE: PHYSICIAN NOTE DATE OF NOTE: APR 02, 2025@14:20 ENTRY DATE: APR 02, 2025@14:20:30 AUTHOR: AARON WALDEN EXP COSIGNER: URGENCY: STATUS: COMPLETED Patient Name: SANCHO DYE VITALS: Patient temperature: 97.4 F [36.3 C] (04/02/2025 13:53) Blood pressure: 106/70 (04/02/2025 13:53) Patient height: 70.5 in [179.1 cm] (11/21/2024 11:18) Patient weight: 208 lb [94.35 kg] (04/02/2025 13:53) Patient BMI: BMI: 29.5 Patient pulse: 74 (04/02/2025 13:53) Patient respiration: 18 (04/02/2025 13:53) Patient Pulse Oximetry: 96% (04/02/2025 13:53) Pain Ratin (04/02/2025 13:53) Active [facility] Medications: Active Outpatient Medications (including [...] No Active Remote Medications for this 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 No hip pain, ankle pain, fever, chills, joint swelling, animal bite, tick bite or difficulty with ambulation. He injured 1 knee playing football in high school but he does not remember which knee. No numbness or motor weakness. Physical examination Well-developed well-nourished male in no acute distress Right knee without erythema or swelling Knee with full range of motion Ambulation normal Assessment and plan: 1. Right knee pain: No sign of infection or vascular injury. Possible causes include osteoarthritis, gout, Lyme disease, popliteal cyst. Plan: Right knee x-ray and ultrasound Check CBC, calcium, uric acid, Lyme titer Follow-up 04-23-25 Medication Reconciliation: Outpatient: Has the patient been taking medications as documented in the EMLR? YES: The patient has been taking medications as documented in the EMLR. Essential Medication List for Review used to complete this medication reconciliation. INCLUDED IN THIS LIST: Alphabetical list of active outpatient prescriptions dispensed from this [facility] (local) and dispensed from another NH or [facility] facility (remote) as well as [...] /glenis/ Aaron Walden MD Staff Physician Signed: 04/02/2025 14:25 AARON WALDEN [place] [facility] [place] [facility] Apr 02, 2025 01:55 PM PREVENTIVE MEDICINE NURSING NOTE: LOCAL TITLE: CLINICAL REMINDERS/NURSING STANDARD TITLE: PREVENTIVE MEDICINE NURSING NOTE DATE OF NOTE: APR 02, 2025@13:55 ENTRY DATE: APR 02, 2025@13:55:12 AUTHOR: DARRELL ADAME EXP COSIGNER: URGENCY: STATUS: COMPLETED Depression Screening: Perform PHQ-2 A PHQ-2 screen was performed. The score was 0 which is a negative screen for depression. Over the past two weeks, how often have you been bothered by the following problems? 1. Little interest or pleasure in doing things Not at all 2. Feeling down, depressed, or hopeless Not at all Tobacco Use Screening: The patient is a former cigarette smoker. The patient has never used other types of tobacco. Alcohol Use Screen (AUDIT-C): Alcohol Screen: SCREEN [...] due to responses to other questions. /glenis/ DARRELL ADAME LPN Signed: 04/02/2025 13:56 DARRELL ADAME [facility]
--- OUTSIDE RECORDS SUMMARY | 2025-04-23 06:00 | XMS_ITS | Encounter Summary ---
Author Name [facility] [place] [facility] [place] Address [address] [place] [address] Care Team Providers Care Supervisor Maintenance Name Role Phone AARON WALDEN Primary Care [...] PART B Apr 24, 2013 PART B [id number] KLEBER DYE RY PATIENT MEDICARE (WNR) MEDICARE () PART B Apr 24, 2013 PART B [id number] [facility] KLE[place] DYE RY PATIENT MEDICARE (WNR) MEDICARE () PART B Apr 24, 2013 PART B [id number] KLEBER DYE RY PATIENT MEDICARE (WNR) MEDICARE () PART A November 23, 2011 PART A [id number] KLEBER DYE RY PATIENT MEDICARE (WNR) MEDICARE () PART A November 23, 2011 PART A [id number] KLEBER DYE RY PATIENT MEDICARE (WNR) MEDICARE () PART A November 23, 2011 PART A [id number] KLEBER DYE PATIENT [facility] [place] PLAN G PLAN G Apr 24, 2013 PLAN G [id number] KLEBER DYE PATIENT [facility] PLAN G Apr 24, 2013 PLANG [id number] KLEBER DYE PATIENT [facility] [place] [employer] PLAN G PLANG Apr 24, 2013 PLANG [id number] KLEBER DYE PATIENT Selected Encounter This section includes the information on record at [place] for the Encounter. Date/Time Encounter Type Encounter Description Reason Provider Source Apr 23, 2025 10:00 AM OFFICE O/P EST LOW 20 MIN PRIMARY CARE/MEDICINE ICD-10-CM M25.561 Pain in right knee AARON WALDEN [facility] Encounter Template Text not used by [place] Assessments - Encounter Diagnoses This section includes the primary and secondary diagnoses documented for the Encounter. Date/Time Primary/Secondary Diagnosis Diagnosis Name Provider Source Apr 23, 2025 10:34 AM PRIMARY Pain in right knee AARON WALDEN [place] [facility] [place] [facility] Apr 23, 2025 10:34 AM SECONDARY Encounter for immunization SHILPI ADAME [facility] Plan of Treatment: Future Appointments [...] Appointment Type Appointme nt Facility Name May 07, 2025 11:30 AM AMBULATORY - MEDICINE [facility] [place] [facility] Jun 14, 2025 10:00 AM AMBULATORY - NONE [place] [facility] [place] [facility] Jul 05, 2025 11:00 AM AMBULATORY - MEDICINE [facility] [place] [facility] Jul 05, 2025 01:00 PM AM[place]UL[place]ORY [place]ICINE [place] [facility] [place] [facility] Jul 16, 2025 10:30 AM AMBULATORY - MEDICINE [facility] Active, Pending, and Scheduled Orders This section includes a listing of several types of active, pending, and scheduled orders, including clinic medications orders, diagnostic test orders, procedure orders and consult orders; where the start date of the order is 45 days before the date of the Encounter or 45 days after the date of theEncounter. The data comes from all [place] treatment facilities. Test Date/Time Test Type Test Details Facility Name Apr 13, 2025 12:00 AM Laboratory - Chemistry Order URINALYSIS CLEAN CATCH URINE [facility] Apr 13, 2025 12:00 AM Laboratory - Chemistry Order LIVER FUNCTION BLOOD (SST-SERUM) [facility] Apr 13, 2025 12:00 AM Laboratory - Chemistry Order TSH BLOOD (SST-SERUM) [facility] Apr 13, 2025 12:00 AM Laboratory - Chemistry Order LIPID PANEL FASTING BLOOD (SST-SERUM) [facility] Apr 23, 2025 10:29 AM Consult Order ACUPUNCTUR E/NHM OUTPT Cons Cotton Factor's Choice [facility] Lab Results: +/- 30 days of the encounter This section includes the Chemistry and Hematology Lab Results on record with [place] for the patient. Radiology Reports and Pathology Reports are provided separately, in subsequent sections. Lab Results This section contains the Chemistry/Hematology Results that were resulted 30 days before or 30 daysafter the date of the Encounter. Date/Time Source Result Type Result - Unit Interpretation Reference Range Specimen Type Comment Apr 02, 2025 02:25 PM [facility] LYME SEROLOGY PANEL SERUM Specimen Type: [...] of the panel were validated at the [place] [facility]. Results are considered [...] Apr 02, 2025 02:19 PM Reporting Lab: [address] [address] Performing Lab: [address] [address] TIER 1 LYME SCREENING EIA Negative Negat shannen LYME AB FINAL INTERPRETATION Negative Ne gative Apr 02, 2025 02:25 PM [facility] URIC ACID SERUM Specimen Type: SERUM No comment entered. Ordering Provider: AARON WALDEN Report Released Date/Time: Apr 02, 2025 02:19 PM Reporting Lab: [address] [address] Performing Lab: [address] [address] URIC ACID 3.8 mg/dL 3.7-7.7 Apr 02, 2025 02:25 PM [facility] BASIC METABOLIC PANEL (non-fasting) SERUM Spe cimen Type: SERUM No comment entered. Ordering Provider: AARON WALDEN Report Released Date/Time: Apr 02, 2025 02:22 PM Reporting Lab: [address] [place] [address] Performing Lab: [facility] [address] [facility] [address] UREA NITROGEN 20 mg/dL 8-26 GLUCOSE 103 mg/dL H 65-100 SODIUM 140 mmol/L 136-145 POTASSIUM 4.9 mmol/L 3.5-5.1 CHLORIDE 108 mmol/L H 98-107 CO2 27 meq/L 23-31 CALCIUM 9.0 mg/dL 8.8-10 CREATININE, Serum 1.47 mg/dL H 0.72-1.25 eGFR(CKD-EPI 2020) 49 mL/min L >60 ANION GAP <6 meq/L L 6-16 Apr 02, 2025 02:25 PM [facility] CBC AND DIFF (AUTO) BLOOD Specimen Type: BIBIANA López No comment entered. Ordering Provider: AARON WALDEN Report Released Date/Time: Apr 02, 2025 02:19 PM Reporting Lab: [facility] [address] [facility] [address] Performing Lab: [facility] [address] [facility] [address] WBC 8.28 10*3/uL 4.50-11.00 RBC 3.95 10*6/uL [...] Weight Body Mass Index Source Apr 23, 2025 10:30 AM 134/72 mm[Hg] [facility] Apr 23, 2025 09:54 AM 97.7 F 92 /min 154/96 mm[Hg] 16 /min 96 % 5 214 lb 30 [facility] Immunizations: All administered on the encounter date This section contains immunizations associated to the Encounter. Immunization Series Date Issued Administered By Site Reaction Lot Number CVX Code Drug Copy Coordinator Comment(s) Source INFLUENZA, ADJUVANTED, TRIVALENT, Apr 23, 2025 SHILPI ADAME LEFT DELTO ID [id number] [employer] Booster for Series, ADMINISTERE D AT [facility] PNEUMOCOCCAL CONJUGATE PCV21, POLYSACCHARID E [id number] CONJUGATE, Apr 23, 2025 SHILPI ADAME LEFT DELTO ID [id number] Booster for Series, ADMINISTERE D AT [facility] Social History: Smoking Status (Most current) [...] Current Smoking Status Comment Ivan bryson Apr 02, 2025 02:00 PM VA-TOBACCO USE FOR DIPESH CIGARETTES [facility] Tobacco Use History This section includes a history of the smoking, or tobacco-related health factors, that were collected on or before the date of the Encounter. The data comes from the [place] facility where the Encounter took place. Date/Time Smoking Status/Tobac co Use Comment Facility Apr 02, 2025 02:00 PM VA-TOBACCO USE FORMER CIGARETTES [facility] [place] [facility] Apr 23, 2024 10:00 AM VA-TOBACCO FORMER USER [facility] [place] [facility] Apr 23, 2024 10:00 AM VA-TOBACCO QUIT 5 TO < 15 YRS [facility] [place] [facility] Apr 13, 2023 11:00 AM VA-TOBACCO FORMER USER [facility] [place] [facility] Apr 13, 2023 11:00 AM VA-TOBACCO QUIT 5 TO < 15 YRS [facility] [place] [facility] Apr 14, 2022 01:30 PM VA-TOBACCO FORMER USER [facility] [place] [facility] Apr 14, 2022 01:30 PM VA-TOBACCO QUIT 5 TO < 15 YRS [facility] [place] [facility] Apr 10, 2021 10:00 AM VA-TOBACCO FORMER USER [facility] [place] [facility] Apr 10, 2021 10:00 AM VA-TOBACCO QUIT 5 TO < 15 YRS [facility] [place] [facility] Apr 02, 2020 10:30 AM VA-TOBACCO FORMER USER [facility] [place] [facility] Apr 02, 2020 10:30 AM VA-TOBACCO QUIT 5 TO < 15 YRS [facility] [place] [facility] Sep 29, 2018 08:52 AM VA-TOBACCO FORMER USER [facility] [place] [facility] Sep 29, 2018 08:52 AM VA-TOBACCO QUIT 15 YRS OR MORE [facility] [place] [facility] December 21, 2017 12:27 PM QUIT TOBACCO USE 1-7 YEARS AGO 5 or 6 years ago [facility] [place] [facility] May 19, 2017 10:21 AM QUIT TOBACCO USE 1-7 YEARS AGO [facility] [place] [facility] Aug 19, 2016 09:56 AM QUIT TOBACCO USE 1-7 YEARS AGO [facility] [place] [facility] Feb 12, 2016 11:34 AM QUIT TOBACCO USE 1-7 YEARS AGO [facility] Aug 08, 2015 03:04 PM QUIT TOBACCO USE 1-7 YEARS AGO [facility] Aug 08, 2015 03:04 PM QUIT TOBACCO USE IN PAST YEAR pt states he stooped smmoking in the past yr. [facility] Advance Directives: All historical and current [...] 2012 ADVANCE DIRECTIVE DISCUSSION MONIKA IZAGUIRRE [facility] Radiology Reports: +/- [...] ULTRASOUND EXTREMI TY, NONVASCULAR (COMPLETE): SANCHO DYE [id number] -1945 [facility] Date: APR 15, 2025@10:11 Req Phys: AARON WALDEN Loc: [facility] PACT 2 MD (Req'g Loc) Img Loc: ULTRASOUND Service: Unknown [facility] [place] [place] [address] (Case [id number] COMPLETE) ULTRASOUND EXTREMITY, NONVASCULAR(US Detailed) CPT:15609 Proc Modifiers : RIGHT Reason for Study: look for popliteal cyst Clinical History: Report Status: Verified Date Reported: APR 15, 2025 Date Verified: APR 15, 2025 Collection Systems Foreman E-Sig:/ES/MIRTA NAVAS JR Report: Study: Soft tissue [...] Primary Interpreting Staff: MIRTA NAVAS JR, Radiologist (Collection Systems Foreman) /MIRTA CASIANO JR [facility] Apr 02, 2025 02:27 PM KNEE 3 VIEWS (RIGH T): SANCHO DYE [id number] -1945 M Exm Date: APR 02, 2025@14:27 Req Phys: AARON WALDEN Loc: [facility] PACT 2 MD (Req'g Loc) Img Loc: [facility] 1 Service: [place] [address] (Case [id number] COMPLETE) KNEE 3 VIEWS (RIGHT) (RAD Detailed) CPT:36375 Proc Modifiers : RIGHT Reason for Study: pain, look for injury Clinical History: Report Status: Verified Date Reported: APR 03, 2025 Date Verified: APR 03, 2025 Collection Systems Foreman E-Sig:/ES/MIRTA NAVAS JR Report: Study: AP weight-bearing [...] Primary Interpreting Staff: MIRTA NAVAS JR, Radiologist (Collection Systems Foreman) /MIRTA CASIANO JR [facility] Encounter Notes: All associated encounter notes This section contains the clinical notes associated to the Encounter. Date/Time Encounter Note(s) Provider Source Apr 23, 2025 10:30 AM PHYSICIAN NOTE: LOCAL TITLE: MD NOTE STANDARD TITLE: PHYSICIAN NOTE DATE OF NOTE: APR 23, 2025@10:30 ENTRY DATE: APR 23, 2025@10:30:41 AUTHOR: AARON WALDEN EXP COSIGNER: URGENCY: STATUS: COMPLETED Patient Name: SANCHO DYE VITALS: Patient temperature: 97.7 F [36.5 C] (04/23/2025 09:54) Blood pressure: 134/72 (04/23/2025 10:30) Patient height: 70.5 in [179.1 cm] (11/21/2024 11:18) Patient weight: 214 lb [97.07 kg] (04/23/2025 09:54) Patient BMI: BMI: 30.3 Patient pulse: 92 (04/23/2025 09:54) Patient respiration: 16 (04/23/2025 09:54) Patient Pulse Oximetry: 96% (04/23/2025 09:54) Pain Ratin (04/23/2025 09:54) Active [facility] Medications: Active Outpatient Medications (including [...] CAPSULE BY MOUTH AT ACTIVE (S) BEDTIME Indication: FOR ENLARGED PROSTATE Remote Medications: No Active 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 It is anterior and medial aspects without radiation. X-rays show mild osteoarthritis. Ultrasound negative. Lab test negative for gout and Lyme disease. Received physical therapy with minimal improvement. Physical examination Well-developed well-nourished male in no acute distress Knees without swelling or deformity Skin no lacerations or abrasions Mucous membranes moist Assessment and plan: 1. Right knee pain: No signs of infection, gout or neurovascular compromise. Not a good candidate for joint injections because of anticoagulants. Plan: Acupuncture Follow-up 3 months clinic visit and lab Medication Reconciliation: Outpatient: Has the patient been taking medications as documented in the EMLR? YES: The patient has been taking medications as documented in the EMLR. Essential Medication List for Review used to complete this medication reconciliation. INCLUDED IN THIS LIST: Alphabetical list of active outpatient prescriptions dispensed from this [place] (local) and dispensed from another [place] or [facility] facility (remote) as well as inpatient orders [...] /glenis/ Aaron Walden MD Staff Physician Signed: 04/23/2025 10:34 AARON WALDEN [place] [facility] [place] [facility] Apr 23, 2025 10:01 AM PREVENTIVE MEDICINE NURSING NOTE: LOCAL TITLE: CLINICAL REMINDERS/NURSING STANDARD TITLE: PREVENTIVE MEDICINE NURSING NOTE DATE OF NOTE: APR 23, 2025@10:01 ENTRY DATE: APR 23, 2025@10:02:03 AUTHOR: DARRELL ADAME EXP COSIGNER: URGENCY: STATUS: COMPLETED Pneumococcal Vaccine: PCV21 (Capvaxive) Administered: PNEUMOCOCCAL CONJUGATE PCV21, POLYSACCHARIDE [id number] CONJUGATE, PF Date Administered: Apr 23, 2025 10:00 Series: Booster Copy Coordinator: [employer] Lot: [id number] Exp Date: May 15, 2026 NDC: [id number] Admin Route/Site: INTRAMUSCULAR/LEFT DELTOID Dosage: 0.5mL Vaccine Information Statement(s): PNEUMOCOCCAL CONJUGATE VACCINE (PCV) VIS December 20, 2024 (UZBEK) Order By: Policy Administered By: Darrell Adame The Pneumococcal Vaccine Information Statement (VIS) was reviewed with the patient/surrogate decision maker which lists the benefits and risks of not receiving the Pneumococcal vaccine. The patient/surrogate decision maker denied any prior severe reaction to this vaccine or its components or a severe allergic reaction such as anaphylaxis to any vaccine or any injectable therapy. The patient/surrogate decision maker gave verbal consent to receive the vaccine. Influenza Immunization: Influenza, Trivalent, Preservative Free (Fluad-Syringe) Administered: INFLUENZA, ADJUVANTED, TRIVALENT, PF Date Administered: Apr 23, 2025 10:00 Series: Booster Copy Coordinator: [employer] Lot: [id number] Exp Date: December 11, 2025 NDC: [id number] Admin Route/Site: INTRAMUSCULAR/LEFT DELTOID Dosage: 0.5mL Vaccine Information Statement(s): INFLUENZA(FLU) VACC(INACTIVATED OR RECOMBINANT)VIS Aug 24, 2024 (UZBEK) Order By: Policy Administered By: Darrell Adame The Influenza Vaccine Information Statement (VIS) was [...] the vaccine. /glenis/ DARRELL ADAME LPN Signed: 04/23/2025 10:03 DARRELL ADAME [place] [facility]
--- OUTSIDE RECORDS SUMMARY | 2025-05-25 10:42 | XMS_ITS | Continuity of Care Document ---
Author Name [facility] Organization [facility] Care Team Providers Care Chief Resource Officer Name Role Phone [facility] Unavailable Unavailable Problems Combined list of problems from Department of Defense and Veterans Affairs facilities. It does not include entries that were removed or entered in error. Problem Status Onset Date Problem Type Date of Resolution Comments Source Laryngitis Active 07/25/19 25 Condition Mar 19, 2025 Entered By: PB WALDEN Comment: forwarded to ENT [facility] Microscopic haematuria Active 07/25/19 25 Condition Oct [...] Benign Prostatic Hypertrophy without Outflow Obstruction (SCT 520970912) Active 07/25/19 22 Condition Oct 06, 2021 [...] [facility] AF- Atrial Fibrillation (SCT [id number]) Active 07/25/19 18 Condition [facility] Alcohol Abuse-Unspec Active Condition [facility] [place] Arthralgia * (ICD-9-CM 719.40) Active Condition [facility] Benign Hypertrophy Prostate/Bph Active [place] [facility] Coronary arteriosclerosis Active Condition [facility] Depressive disorder, NOS Active Condition [facility] Erectile Dysfunction * (ICD-9-CM 302.72) Active Condition [facility] Exposure to potentially hazardous substance Active Condition Oct 13, 2022 Entered By: PB WALDEN Comment: education provided [facility] Gastroesophageal Reflux Disorder * (ICD-9-CM 530.81) Active Condition [facility] Hemorrhoids * (ICD-9-CM 455.6) Active Condition [facility] History of polyp of colon (SNOMED CT 442303581) Active Condition [facility] Hydrocele * (ICD-9-CM 603.9) Active Condition [facility] Hydrocele Nos Active Condition [facility] Hyperlipidemia Active Condition [facility] Hypertension * (ICD-9-CM 401.9) Active Condition [facility] Kidney Stones (ICD-9-CM 592.0) Active Condition [facility] Lateral Epicondylitis (Tennis Elbow) (ICD-9-CM 726.32) Active Condition [facility] Lateral epicondylitis * (ICD-9-CM 726.32) Active Condition [facility] Nicotine Addict Active Condition [facility] OVERWEIGHT (ICD-9-CM 278.02) Active Condition [facility] Penile Lesion (ICD-9-CM 709.9) Active Condition [facility] Peripheral Vascular Disease * (ICD-9-CM 443.9) Active Condition [facility] Diagnosis: ICD-10-CM I73.9 Peripheral vascular disease, unspecified Active Diagnosis [facility] Diagnosis: ICD-10-CM M25.561 Pain in right knee Active Diagnosis [facility] Diagnosis: ICD-10-CM Z71.89 Other specified counseling Active Diagnosis [facility] Diagnosis: ICD-10-CM R49.0 Dysphonia Active Diagnosis [facility] Diagnosis: ICD-10-CM J37.0 Chronic laryngitis Active Diagnosis [facility] Diagnosis: ICD-10-CM R49.8 Other voice and resonance disorders Active Diagnosis [facility] [place] Diagnosis: ICD-10-CM R13.19 Other dysphagia Active Diagnosis [facility] Diagnosis: ICD-10-CM L71.8 Other rosacea Active Diagnosis [facility] Diagnosis: ICD-10-CM I63.9 Cerebral infarction, unspecified Active Diagnosis [facility] [place] [facility] Diagnosis: ICD-10-CM I10 Essential (primary) hypertension Active [...] Diagnosis: ICD-10-CM I25.10 Athscl heart disease of [place] coronary artery w/o ang pctrs Active Diagnosis [facility] Diagnosis: ICD-10-CM 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, left eye Active Diagnosis [facility] Diagnosis: ICD-10-CM M77.11 Lateral epicondylitis, right elbow Active Diagnosis [facility] Diagnosis: ICD-10-CM M25.519 Pain in unspecified shoulder Active Diagnosis [facility] Diagnosis: ICD-10-CM Z46.0 Encounter for fit/adjst of spectacles and contact lenses Active Diagnosis [facility] [place] [facility] Medications Combined list of outpatient medications from Department of Defense and Veterans Affairs facilities.Medications provided include 1) outpatient medications from the last 15 months, and 2) patient-reported medications. Medication Details Route Status Indication(s) Patie nt Instructions Prescription Expires Prescription Number Last Dispense Date Ordering Provider Order Date Order Qty Source ACETAMINOPH EN 325MG TAB TAKE TWO TABLETS BY MOUTH FOUR TIMES DAILY NEEDED ORAL 09/21/2024 [id number] FRANCK WALDEN D 2023 240 [facility] ALLOPURINOL 300MG TAB TAKE ONE TABLET BY MOUTH EVERY DAY FOR GOUT ORAL ACTIVE 07/07/2025 [id number] 5 FRANCK WALDEN D 2024 90 [facility] ALLOPURINOL 300MG TAB TAKE ONE TABLET BY MOUTH EVERY DAY FOR GOUT ORAL DISCONT INUED 10/09/2024 [id number] 4 FRANCK WALDEN D 2023 90 [facility] AMMONIUM LACTATE 12% LOTION APPLY SMALL AMOUNT TOPICALL Y ONCE DAILY FOR DRY IRRITATE D SKIN TOPICA L ACTIVE 06/08/2025 [id number] MALCOM BYERS D 2023 240 [facility] APIXABAN 5MG TAB TAKE ONE TABLET BY MOUTH TWICE DAILY ORAL ACTIVE 07/25/2025 [id number] 5 FRANCK WALDEN D 2024 180 [facility] APIXABAN 5MG TAB TAKE ONE TABLET BY MOUTH TWICE DAILY ORAL DISCONT INUED 07/31/2024 [id number] 4 FRANCK WALDEN RUTHANN D 2023 180 [facility] [place] ASPIRIN 81MG TAB,CHEWABL E CHEW ONE TABLET BY MOUTH DAILY ORAL ACTIVE KENNY IZAGUIRRE H 2010 [facility] ATORVASTATI N CA 40MG TAB TAKE ONE TABLET BY MOUTH AT BEDTIME FOR CHOLESTE ROL ORAL ACTIVE 07/07/2025 [id number] 5 FRANCK WALDEN RUTHANN D 2023 90 [facility] [place] [facility] [facility] ATORVASTATI N CA 40MG TAB TAKE ONE TABLET BY MOUTH AT BEDTIME FOR CHOLESTE ROL ORAL DISCONT INUED 07/22/2024 [id number] 4 FRANCK WALDEND D 2023 90 [facility] [place] [facility] CALCIUM CARBONATE 650MG TAB TAKE TWO TABLETS BY MOUTH qid ORAL ACTIVE Miriam MARTINS 2005 [facility] CILOSTAZOL 50MG TAB TAKE ONE TABLET BY MOUTH TWICE DAILY -TAKE 30 MINUTES BEFORE MEALS OR TWO HOURS AFTER MEALS ORAL ACTIVE 09/30/2025 [id number] 5 FRANCK WALDEND D 2024 180 [facility] CILOSTAZOL 50MG TAB TAKE ONE TABLET BY MOUTH TWICE DAILY -TAKE 30 MINUTES BEFORE MEALS OR TWO HOURS AFTER MEALS ORAL DISCONT INUED 10/09/2024 [id number] 4 FRANCK WALDEND D 2023 180 [facility] [place] CLOPIDOGREL BISULFATE 75MG TAB TAKE ONE TABLET BY MOUTH EVERY DAY ORAL ACTIVE 09/30/2025 [id number] 5 FRANCK WALDEN RUTHANN D 2024 90 [facility] [place] CLOPIDOGREL BISULFATE 75MG TAB TAKE ONE TABLET BY MOUTH EVERY DAY ORAL DISCONT INUED 10/09/2024 [id number] 4 FRANCK WALDEND D 2023 90 [facility] [place] CYCLOBENZAP RINE HCL 10MG TAB TAKE ONE TABLET BY MOUTH THREE TIMES DAILY NEEDED ORAL 09/21/2024 [id number] FRANCK WALDEN RUTHANN D 2023 90 [facility] DICLOFENAC NA 1% GEL,TOP APPLY 2 GRAMS TOPICALL Y FOUR TIMES A DAY FOR JOINT PAIN FOR OSTEOART HRITIS - USE DOSING CARD PROVIDED IN BOX TOPICJohnna Nayak 04/05/2024 [id number] CAREY MOORE OTTO MARSH 2023 100 [facility] FISH OIL 1000MG (500MG DHA/EPA) CAP,ORAL TAKE 1 CAPSULE BY MOUTH EVERY DAY ORAL ACTIVE KENNY IZAGUIRRE LD H 2008 [facility] FLUTICASONE PROPIONATE 50MCG/SPRAY SOLN,NASAL, 16GM INSTILL 1 SPRAY INTO EACH NOSTRIL TWICE DAILY NEEDED FOR NASAL IRRITATI ON/INFLA MMATION NASAL ACTIVE 07/13/2025 [id number] FRANCK WALDEN RUTHANN D 2023 1 [facility] [place] POTASSIUM 100MG TAB TAKE ONE TABLET BY MOUTH ONCE DAILY FOR BLOOD PRESSURE /HEART ORAL ACTIVE 07/07/2025 [id number] 5 FRANCK WALDEN RUTHANN D 2024 90 [facility] [place] POTASSIUM 100MG TAB TAKE ONE TABLET BY MOUTH ONCE DAILY FOR BLOOD PRESSURE /HEART ORAL DISCONT INUED 10/09/2024 [id number] 4 FRANCK WALDEN RUTHANN D 2023 90 [facility] METOPROLOL SUCCINATE 100MG TAB,SA TAKE ONE TABLET BY MOUTH ONCE DAILY FOR BLOOD PRESSURE /HEART ORAL ACTIVE 12/29/2025 [id number] 5 FRANCK WALDEN RUTHANN D 2024 90 [facility] METOPROLOL SUCCINATE 100MG TAB,SA TAKE ONE TABLET BY MOUTH ONCE DAILY FOR BLOOD PRESSURE /HEART ORAL DISCONT INUED 12/20/2024 [id number] CHULASUSAN COOKIN 2023 90 [facility] MULTIVITAMI NS W/MINERALS CAP/TAB TAKE 1 TABLET BY MOUTH EVERY DAY FOR VITAMIN SUPPLEME NTATION ORAL ACTIVE 07/07/2025 [id number] 5 FRANCK WALDEND D 2024 100 [facility] MULTIVITAMI NS W/MINERALS CAP/TAB TAKE 1 TABLET BY MOUTH EVERY DAY FOR VITAMIN SUPPLEME NTATION ORAL DISCONT INUED 08/18/2024 [id number] 4 FRANCK WALDEN D 2023 100 [facility] PANTOPRAZOL E NA 20MG TAB,EC TAKE ONE TABLET BY MOUTH EVERY DAY ORAL ACTIVE 07/07/2025 [id number] 5 FRANCK WALDEN 2024 90 [facility] PANTOPRAZOL E NA 20MG TAB,EC TAKE ONE TABLET BY MOUTH EVERY DAY ORAL DISCONT INUED 08/08/2024 [id number] 4 FRANCK WALDEN 2023 90 [facility] TAMSULOSIN HCL 0.4MG CAP TAKE ONE CAPSULE BY MOUTH AT BEDTIME FOR ENLARGED PROSTATE ORAL ACTIVE 07/25/2025 [id number] 5 FRANCK WALDEN D 2023 90 [facility] TAMSULOSIN HCL 0.4MG CAP TAKE ONE CAPSULE BY MOUTH AT BEDTIME FOR ENLARGED PROSTATE ORAL DISCONT INUED 08/08/2024 [id number] FRANCK WALDEN D 2023 90 [facility] Immunizations Combined list of available immunizations from the Department of Defense and Veterans Affairs facilities. Immunization Series Date Given Administered By Site Reaction Lot Number CVX Code Drug Set Up Mechanic Heading Machines Status Comments Source INFLUENZA, ADJUVANTED, TRIVALENT, PF 2024 SHILPI ADAME E LEFT DELTO ID [id number] 168 complet ed Booster for Series, [facility] PNEUMOCOCCAL CONJUGATE PCV21, POLYSACCHARID E [id number] CONJUGATE, PF 2024 SHILPI ADAME LEFT DELTO ID [id number] 327 complet ed Booster for Series, [facility] COVID-19 (MODERNA), MRNA, LNP-S, PF, 50 MCG/0.5 ML (AGES 12+ YEARS) 1 2024 SHILPI ADAME LEFT DELTO ID [id number] 312 complet ed [facility] TDAP 2024 SHILPI ADAME E LEFT DELTO ID [id number] 115 complet ed Booster for Series, [facility] COVID-19 (MODERNA), MRNA, LNP-S, PF, 50 MCG/0.5 ML (AGES 12+ YEARS) 2023 RADHAMES SMITH H RIGHT DELTO ID [id number] 312 complet ed [facility] INFLUENZA, HIGH-DOSE, TRIVALENT, PF 2023 RADHAMES SMITH H RIGHT DELTO ID [id number] 135 complet ed [facility] COVID-19 (MODERNA), MRNA, LNP-S, PF, 50 MCG/0.5 ML (AGES 12+ YEARS) 5 2023 ALBERT SMITH RIGHT DELTO ID [id number] 312 complet ed [facility] RSV, BIVALENT, PROTEIN SUBUNIT RSVPREF, DILUENT RECONSTITUTED , 0.5 ML, PF 2022 KISHAN CORREA LEFT DELTO ID [id number] 305 complet ed Completed Series, [facility] INFLUENZA, HIGH-DOSE, QUADRIVALENT 2022 KISHAN CORREA LEFT DELTO ID [id number] 197 complet ed Completed Series, [facility], [facility] COVID-19 (MODERNA), MRNA, LNP-S, BIVALENT BOOSTER, PF, 50 MCG/0.5 ML OR 25MCG/0.25 ML DOSE 2021 229 complet ed Booster for Series, HISTORICA L INFORMATI ON - SOURCE UNSPECIFI ED, Lot#: [id number] [facility] INFLUENZA VACCINE, QUADRIVALENT, ADJUVANTED 2021 205 complet ed [facility] COVID-19 (MODERNA), MRNA, LNP-S, PF, 100 MCG/0.5ML DOSE OR 50 MCG/0.25ML DOSE 3 2021 207 complet ed MOD; [id number]; 2 [facility] COVID-19 (MODERNA), MRNA, LNP-S, PF, 100 MCG OR 50 MCG DOSE 3 2020 207 complet ed MOD; [id number]; 2 [facility] INFLUENZA VACCINE, QUADRIVALENT, ADJUVANTED 2020 205 complet ed [facility] COVID-19 (PFIZER), MRNA, LNP-S, PF, 30 MCG/0.3 ML DOSE 2 2020 208 complet ed PFR; [id number]; 1 [facility] COVID-19 (PFIZER), MRNA, LNP-S, PF, 30 MCG/0.3 ML DOSE 1 2020 208 complet ed PFR; [id number]; 1 [facility] INFLUENZA, INJECTABLE, QUADRIVALENT, PRESERVATIVE FREE 2019 150 complet ed [facility] INFLUENZA, INJECTABLE, QUADRIVALENT, PRESERVATIVE FREE 2018 150 complet ed Site: Left Deltoid [facility] ZOSTER RECOMBINANT 2 2018 187 complet ed [facility] INFLUENZA, SEASONAL, INJECTABLE 10/17/ 2018 141 complet ed [facility] [...] CONJUGATE PCV 13 2014 133 complet ed [facility] PNEUMOCOCCAL CONJUGATE PCV 13 2014 133 complet ed yes [facility] INFLUENZA, UNSPECIFIED FORMULATION 2013 88 complet ed [facility] INFLUENZA, UNSPECIFIED FORMULATION 2012 88 complet ed [facility] PNEUMOCOCCAL, UNSPECIFIED FORMULATION 2012 NONE 109 complet ed [facility] PNEUMOCOCCAL POLYSACCHARID E [id number] 2012 33 complet ed yes [facility] INFLUENZA, UNSPECIFIED FORMULATION 2011 88 complet ed [facility] INFLUENZA, UNSPECIFIED FORMULATION 2010 88 complet ed [facility] TD(ADULT) UNSPECIFIED FORMULATION 2010 NONE 139 complet ed given L deltoid; expiratio n 07/29/12; lot # [id number] [facility] INFLUENZA, UNSPECIFIED FORMULATION 2008 88 complet ed [facility] INFLUENZA, UNSPECIFIED FORMULATION 2007 88 complet ed [facility] INFLUENZA, UNSPECIFIED FORMULATION 2006 88 complet ed [facility] INFLUENZA, UNSPECIFIED FORMULATION 2005 88 complet ed [facility] INFLUENZA, UNSPECIFIED FORMULATION 2004 88 complet ed [facility] INFLUENZA, UNSPECIFIED FORMULATION 2004 88 complet [place] PNEUMOCOCCAL, UNSPECIFIED FORMULATION 2003 109 complet ed [facility] INFLUENZA, UNSPECIFIED FORMULATION 2002 88 complet ed [facility] INFLUENZA, WHOLE 2001 EVANGELINA FUNK M 16 complet ed [facility] INFLUENZA, WHOLE 2000 16 complet [place] TD(ADULT) UNSPECIFIED FORMULATION 2000 EMMY JIANG IN DOT 139 complet [place] Results Combined list of recent chemistry, hematology and other laboratory results from Department of Defense and [facility], ranging from 15 months to all on record, depending upon the facility. Order Name Results Value Reference Range Date Interpretation Specimen Comments Source LYME SEROLOGY PANEL BORRELIA BURGDORFER I AB.IGG AND IGM WITH REFLEX TO IMMUNOASSA Y PANEL - SERUM OR PLASMA Negative 04/02 Specimen Type: SERUM Comment: The LYME SEROLOGY PANEL was performed using the FDA-approve d Todd JUSTIN Borrelia burdorferi modified two-tier test system. This modified methodology uses a second EIA in place of a western immunoblot assay, which the FDA has determined is substantia lly equivalent to or better than standard two-tier testing using western blot. Supplementa l testing with a second EIA meets CDC guidelines for Lyme disease testing. Performance characteris tics of the panel were validated at the [facility] Molecular Diagnostics Laboratory. Results are considered positive only if the initial screening EIA is positive or equivocal, and either or both supplementa l EIAs (for IgM and IgG) are positive. Diagnosis of Lyme disease should not be based solely on laboratory results. Clinical and exposure history must be considered. Positive antibody results reflect prior immunologic exposure, and do not necessarily indicate active infection. False positive results are possible in patients with other spirochetal infections, infectious mononucleos is, and connective tissue disorders. Negative results do not exclude B. burgdorferi infection. Only 10-40% of patients with erythema migrans alone have detectable antibodies. False negative results are possible, if specimens are drawn too soon after infection before an antibody response. Antibody induction may be aborted by early antibiotic therapy. Results in immunosuppr essed individuals should be interpreted with caution. If Lyme disease is strongly suspected, but antibody was not detected, a second specimen collected about 2-4 weeks after the first should be tested. This test is NOT for use in screening individuals without signs, symptoms or exposure history. Physicians should report all cases of Lyme disease to their state and local health departments , if applicable. Ordering Provider: PB WALDEN Report Released Date/Time: Apr 02, 2025 02:19 PM Reporting Lab: [place] [address] [employer] [employer]TRN [facility]obUSEMOHA[facility] [address] [address] Performing Lab: [place] [address] [employer] [employer] [address] [facility] [address] [place] [address] [employer]N [facility] LYME SEROLOGY PANEL BORRELIA BURGDORFER I AB [INTERPRET ATION] IN SERUM BY IA.MTTT Negative 04/02 Specimen Type: SERUM Comment: The LYME SEROLOGY PANEL was performed using the FDA-approve d Todd JUSTIN Borrelia burdorferi modified two-tier test system. This modified methodology uses a second EIA in place of a western immunoblot assay, which the FDA has determined is substantia lly equivalent to or better than standard two-tier testing using western blot. Supplementa l testing with a second EIA meets CDC guidelines for Lyme disease testing. Performance characteris tics of the panel were validated at the [facility] Molecular Diagnostics Laboratory. Results are considered positive only if the initial screening EIA is positive or equivocal, and either or both supplementa l EIAs (for IgM and IgG) are positive. Diagnosis of Lyme disease should not be based solely on laboratory results. Clinical and exposure history must be considered. Positive antibody results reflect prior immunologic exposure, and do not necessarily indicate active infection. False positive results are possible in patients with other spirochetal infections, infectious mononucleos is, and connective tissue disorders. Negative results do not exclude B. burgdorferi infection. Only 10-40% of patients with erythema migrans alone have detectable antibodies. False negative results are possible, if specimens are drawn too soon after infection before an antibody response. Antibody induction may be aborted by early antibiotic therapy. Results in immunosuppr essed individuals should be interpreted with caution. If Lyme disease is strongly suspected, but antibody was not detected, a second specimen collected about 2-4 weeks after the first should be tested. This test is NOT for use in screening individuals without signs, symptoms or exposure history. Physicians should report all cases of Lyme disease to their state and local health departments , if applicable. Ordering Provider: PB WALDEN Report Released Date/Time: Apr 02, 2025 02:19 PM Reporting Lab: [facility] [address] [address] Performing Lab: [facility] [address] [address] [facility]ITALUSE [facility] URIC ACID URATE [MASS/VOLU ME] IN SERUM OR PLASMA 3.8 mg/dL 3.7 - 7.7 04/02 Specimen Type: SERUM No comment entered. Ordering Provider: PB WALDEN Report Released Date/Time: Apr 02, 2025 02:19 PM Reporting Lab: [facility] [address] [address] Performing Lab: [facility]ITALUSE[address] [address] [facility] BASIC METABOLI C PANEL (non-fas ting) UREA NITROGEN [MASS/VOLU ME] IN SERUM OR PLASMA 20 mg/dL 8 - 26 04/02 Specimen Type: SERUM No comment entered. Ordering Provider: PB WALDEN Report Released Date/Time: Apr 02, 2025 02:22 PM Reporting Lab: [facility]ITALUSE[address] [address] Performing Lab: [facility]ITALRNOR[facility]N [facility]OSPITALUSE[address] [address] [facility] HOSPITALUSE [facility] BASIC METABOLI C PANEL (non-fas ting) GLUCOSE [MASS/VOLU ME] IN SERUM OR PLASMA 103 mg/dL 65 - 100 04/02 H Specimen Type: SERUM No comment entered. Ordering Provider: PB WALDEN Report Released Date/Time: Apr 02, 2025 02:22 PM Reporting Lab: [facility]ITALUSE[address] [address] Performing Lab: [facility] HOSPITALUSE[address] [place] [address] [facility]OSPITALRUAB HOSPITALTRN [facility] HOSPITALUSE [facility] BASIC METABOLI C PANEL (non-fas ting) SODIUM [MOLES/VOL UME] IN SERUM OR PLASMA 140 mmol/L 136 - 145 04/02 Specimen Type: SERUM No comment entered. Ordering Provider: PB WALDEN Report Released Date/Time: Apr 02, 2025 02:22 PM Reporting Lab: [facility]PITALRUAB HOSPITALTRN [facility] HOSPITALUSEMOHAWK [facility] [address] [address] Performing Lab: [facility]PITALRUAB HOSPITALTRN [facility] HOSPITALUSEMOHAWK [facility] [address] [facility] [address] [facility]OSPITALUSE [facility] BASIC METABOLI C PANEL (non-fas ting) POTASSIUM [MOLES/VOL UME] IN SERUM OR PLASMA 4.9 mmol/L 3.5 - 5.1 04/02 Specimen Type: SERUM No comment entered. Ordering Provider: PB WALDEN Report Released Date/Time: Apr 02, 2025 02:22 PM Reporting Lab: [facility]PITALRUAB HOSPITALTRN [facility] HOSPITALUSEMOHAWK [facility] [address] [address] Performing Lab: [facility]PITALRUAB HOSPITALTRN [facility]OS[facility]ITALUSE[address] [address] [facility] HOSPITALUSE [facility] BASIC METABOLI C PANEL (non-fas ting) CHLORIDE [MOLES/VOL UME] IN SERUM OR PLASMA 108 mmol/L 98 - 107 04/02 H Specimen Type: SERUM No comment entered. Ordering Provider: PB WALDEN Report Released Date/Time: Apr 02, 2025 02:22 PM Reporting Lab: [facility]PITALRUAB HOSPITALTRN [facility]OSPITALUSE[address] [address] Performing Lab: [facility] HOSPITALRNORTH BALDWIN INFIRMARYN [facility] HOSPITALUSEMOHA[facility] [address] [address] [facility] HOSPITALUSE [facility] BASIC METABOLI C PANEL (non-fas ting) CARBON DIOXIDE, TOTAL [MOLES/VOL UME] IN SERUM OR PLASMA 27 meq/L 23 - 31 04/02 Specimen Type: SERUM No comment entered. Ordering Provider: PB WALDEN Report Released Date/Time: Apr 02, 2025 02:22 PM Reporting Lab: [facility] [place] [place] [facility] [address] [facility] [address] Performing Lab: [facility] [place] [facility] [address] [facility] [address] [facility] [place] [place] [facility] BASIC METABOLI C PANEL (non-fas ting) CALCIUM [MASS/VOLU ME] IN SERUM OR PLASMA 9.0 mg/dL 8.8 - 10 04/02 Specimen Type: SERUM No comment entered. Ordering Provider: PB WALDEN Report Released Date/Time: Apr 02, 2025 02:22 PM Reporting Lab: [facility] [place] [facility] [address] [facility] [address] Performing Lab: [place] [facility] [place] [address] [address] [facility] [place] [facility] BASIC METABOLI C PANEL (non-fas ting) CREATININE [MASS/VOLU ME] IN SERUM OR PLASMA 1.47 mg/dL 0.72 - 1.25 04/02 H Specimen Type: SERUM No comment entered. Ordering Provider: PB WALDEN Report Released Date/Time: Apr 02, 2025 02:22 PM Reporting Lab: [place] [facility] [place] [address] [address] Performing Lab: [facility] [address] [address] [facility] [place] [facility] BASIC METABOLI C PANEL (non-fas ting) GLOMERULAR FILTRATION RATE/1.73 SQ M.PREDICTE D [VOLUME RATE/AREA] IN SERUM, PLASMA OR BLOOD BY CREATININE -BASED FORMULA (CKD-EPI 2020) 49 mL/min 60 04/02 L Specimen Type: SERUM No comment entered. Ordering Provider: PB WALDEN Report Released Date/Time: Apr 02, 2025 02:22 PM Reporting Lab: [facility] [address] [address] Performing Lab: [facility] [address] [facility] [place] [facility] BASIC METABOLI C PANEL (non-fas ting) ANION GAP IN SERUM OR PLASMA <6meq/L 6 - 16 04/02 L Specimen Type: SERUM No comment entered. Ordering Provider: PB WALDEN Report Released Date/Time: Apr 02, 2025 02:22 PM Reporting Lab: [facility] [place] [facility] [address] [facility] [address] Performing Lab: [facility] [place] [facility] [address] [facility] [address] [facility] [place] [facility] CBC AND DIFF (AUTO) LEUKOCYTES [#/VOLUME] IN BLOOD BY AUTOMATED COUNT 8.28 10*3/uL 4.50 - 11.00 04/02 Specimen Type: BLOOD No comment entered. Ordering Provider: PB WALDEN Report Released Date/Time: Apr 02, 2025 02:19 PM Reporting Lab: [facility] [place] [facility] [address] [facility] [address] Performing Lab: [facility] [place] [facility] [address] [facility] [address] [facility] [place] [facility] CBC AND DIFF (AUTO) ERYTHROCYT ES [#/VOLUME] IN BLOOD BY AUTOMATED COUNT 3.95 10*6/uL 4.23 - 5.66 04/02 L Specimen Type: BLOOD No comment entered. Ordering Provider: PB WALDEN Report Released Date/Time: Apr 02, 2025 02:19 PM Reporting Lab: [facility] [place] [facility] [address] [facility] [address] Performing Lab: [facility] [place] [facility] [address] [facility] [address] [facility] [place] [facility] CBC AND DIFF (AUTO) HEMOGLOBIN [MASS/VOLU ME] IN BLOOD 12.3 g/dL 12.8 - 17 04/02 L Specimen Type: BLOOD No comment entered. Ordering Provider: PB WALDEN Report Released Date/Time: Apr 02, 2025 02:19 PM Reporting Lab: [facility] [place] [facility] [address] [facility] [address] Performing Lab: [facility] [place] [facility] [address] [facility] [address] [facility] [place] [facility] CBC AND DIFF (AUTO) HEMATOCRIT [VOLUME FRACTION] OF BLOOD BY AUTOMATED COUNT 37.8 39.2 - 50.4 04/02 L Specimen Type: BLOOD No comment entered. Ordering Provider: PB WALDEN Report Released Date/Time: Apr 02, 2025 02:19 PM Reporting Lab: [facility] [place] [facility] [address] [facility] [address] Performing Lab: [facility] [place] [facility] [address] [facility] [address] [facility] [place] [facility] CBC AND DIFF (AUTO) MCV [ENTITIC VOLUME] BY AUTOMATED COUNT 95.7 fL 82 - 99 04/02 Specimen Type: BLOOD No comment entered. Ordering Provider: PB WALDEN Report Released Date/Time: Apr 02, 2025 02:19 PM Reporting Lab: [facility] [place] [facility] [address] [facility] [address] Performing Lab: [facility] [place] [facility] [address] [facility] [address] [facility] [place] [facility] CBC AND DIFF (AUTO) MCHC [MASS/VOLU ME] BY AUTOMATED COUNT 32.5 g/dL 30.8 - 35.1 04/02 Specimen Type: BLOOD No comment entered. Ordering Provider: PB WALDEN Report Released Date/Time: Apr 02, 2025 02:19 PM Reporting Lab: [facility] [place] [facility] [address] [facility] [address] Performing Lab: [facility] [place] [facility] [address] [facility] [address] [facility] [place] [facility] CBC AND DIFF (AUTO) PLATELETS [#/VOLUME] IN BLOOD BY AUTOMATED COUNT 257 10*3/uL 140 - 360 04/02 Specimen Type: BLOOD No comment entered. Ordering Provider: PB WALDEN Report Released Date/Time: Apr 02, 2025 02:19 PM Reporting Lab: [facility] [place] [facility] [address] [facility] [address] Performing Lab: [facility] [place] [facility] [address] [facility] [address] [facility] [place] [facility] CBC AND DIFF (AUTO) PLATELET MEAN VOLUME [ENTITIC VOLUME] IN BLOOD BY AUTOMATED COUNT 10.0 fL 9.2 - 12.4 04/02 Specimen Type: BLOOD No comment entered. Ordering Provider: PB WALDEN Report Released Date/Time: Apr 02, 2025 02:19 PM Reporting Lab: [facility] [place] [facility] [address] [facility] [address] Performing Lab: [facility] [place] [facility] [address] [facility] [address] [facility] [place] [facility] CBC AND DIFF (AUTO) ERYTHROCYT E DISTRIBUTI ON WIDTH [RATIO] BY AUTOMATED COUNT 13.6 12.0 - 16.0 04/02 Specimen Type: BLOOD No comment entered. Ordering Provider: PB WALDEN Report Released Date/Time: Apr 02, 2025 02:19 PM Reporting Lab: [facility] [place] [facility] [address] [facility] [address] Performing Lab: [facility] [place] [facility] [address] [facility] [address] [facility] [place] [facility] CBC AND DIFF (AUTO) MONOCYTES [#/VOLUME] IN BLOOD BY AUTOMATED COUNT 0.64 10*3/uL 0.30 - 1.10 04/02 Specimen Type: BLOOD No comment entered. Ordering Provider: PB WALDEN Report Released Date/Time: Apr 02, 2025 02:19 PM Reporting Lab: [facility] [place] [facility] [address] [facility] [address] Performing Lab: [facility] [place] [facility] [address] [facility] [address] [facility] [place] [facility] CBC AND DIFF (AUTO) MCH [ENTITIC MASS] BY AUTOMATED COUNT 31.1 pg 26.2 - 32.6 04/02 Specimen Type: BLOOD No comment entered. Ordering Provider: PB WALDEN Report Released Date/Time: Apr 02, 2025 02:19 PM Reporting Lab: [facility] [place] [facility] [address] [facility] [address] Performing Lab: [facility] [place] [facility] [address] [facility] [address] [facility] [place] [facility] CBC AND DIFF (AUTO) NEUTROPHIL S/100 LEUKOCYTES IN BLOOD BY AUTOMATED COUNT 55.8 43.7 - 75.8 04/02 Specimen Type: BLOOD No comment entered. Ordering Provider: PB WALDEN Report Released Date/Time: Apr 02, 2025 02:19 PM Reporting Lab: [facility] [place] [facility] [address] [facility] [address] Performing Lab: [facility] [place] [facility] [address] [facility] [address] [facility] [place] [facility] CBC AND DIFF (AUTO) LYMPHOCYTE S/100 LEUKOCYTES IN BLOOD BY AUTOMATED COUNT 29.2 14.0 - 42.3 04/02 Specimen Type: BLOOD No comment entered. Ordering Provider: PB WALDEN Report Released Date/Time: Apr 02, 2025 02:19 PM Reporting Lab: [facility] [place] [facility] [address] [facility] [address] Performing Lab: [facility] [place] [facility] [address] [facility] [address] [facility] [place] [facility] CBC AND DIFF (AUTO) MONOCYTES/ 100 LEUKOCYTES IN BLOOD BY AUTOMATED COUNT 7.7 5.1 - 13.7 04/02 Specimen Type: BLOOD No comment entered. Ordering Provider: PB WALDEN Report Released Date/Time: Apr 02, 2025 02:19 PM Reporting Lab: [facility] [place] [facility] [address] [facility] [address] Performing Lab: [facility] [place] [facility] [address] [facility] [address] [facility] [place] [facility] CBC AND DIFF (AUTO) EOSINOPHIL S/100 LEUKOCYTES IN BLOOD BY AUTOMATED COUNT 6.3 0.4 - 6.8 04/02 Specimen Type: BLOOD No comment entered. Ordering Provider: PB WALDEN Report Released Date/Time: Apr 02, 2025 02:19 PM Reporting Lab: [facility] [place] [address] [address] Performing Lab: [facility] [place] [facility] [address] [facility] [address] [facility] [place] [facility] CBC AND DIFF (AUTO) BASOPHILS/ 100 LEUKOCYTES IN BLOOD BY AUTOMATED COUNT 0.6 0.1 - 2.0 04/02 Specimen Type: BLOOD No comment entered. Ordering Provider: PB WALDEN Report Released Date/Time: Apr 02, 2025 02:19 PM Reporting Lab: [facility] [place] [address] [address] Performing Lab: [facility] [place] [address] [address] [facility] [place] [facility] CBC AND DIFF (AUTO) NEUTROPHIL S [#/VOLUME] IN BLOOD BY AUTOMATED COUNT 4.62 10*3/uL 2.20 - 7.60 04/02 Specimen Type: BLOOD No comment entered. Ordering Provider: PB WALDEN Report Released Date/Time: Apr 02, 2025 02:19 PM Reporting Lab: [facility] [place] [address] [address] Performing Lab: [facility] [place] [facility] [address] [facility] [address] [facility] [place] [facility] CBC AND DIFF (AUTO) LYMPHOCYTE S [#/VOLUME] IN BLOOD BY AUTOMATED COUNT 2.42 10*3/uL 1.00 - 3.20 04/02 Specimen Type: BLOOD No comment entered. Ordering Provider: PB WALDEN Report Released Date/Time: Apr 02, 2025 02:19 PM Reporting Lab: [facility] [place] [address] [address] Performing Lab: [facility] [place] [facility] [address] [facility] [address] [facility] [place] [facility] CBC AND DIFF (AUTO) EOSINOPHIL S [#/VOLUME] IN BLOOD BY AUTOMATED COUNT 0.52 10*3/uL 0.03 - 0.44 04/02 H Specimen Type: BLOOD No comment entered. Ordering Provider: PB WALDEN Report Released Date/Time: Apr 02, 2025 02:19 PM Reporting Lab: [facility] [place] [facility] [address] [facility] [address] Performing Lab: [facility] [place] [facility] [address] [facility] [address] [facility] [place] [facility] CBC AND DIFF (AUTO) BASOPHILS [#/VOLUME] IN BLOOD BY AUTOMATED COUNT 0.05 10*3/uL 0.01 - 0.13 04/02 Specimen Type: BLOOD No comment entered. Ordering Provider: PB WALDEN Report Released Date/Time: Apr 02, 2025 02:19 PM Reporting Lab: [facility] [place] [facility] [address] [facility] [address] Performing Lab: [facility] [place] [facility] [address] [facility] [address] [facility] [place] [facility] CBC AND DIFF (AUTO) IMMATURE GRANULOCYT ES/100 LEUKOCYTES IN BLOOD BY AUTOMATED COUNT 0.4 0.0 - 0.7 04/02 Specimen Type: BLOOD No comment entered. Ordering Provider: PB WALDEN Report Released Date/Time: Apr 02, 2025 02:19 PM Reporting Lab: [facility] [place] [facility] [address] [facility] [address] Performing Lab: [facility] [place] [address] [address] [facility] [place] [facility] CBC AND DIFF (AUTO) IMMATURE GRANULOCYT ES [#/VOLUME] IN BLOOD BY AUTOMATED COUNT 0.03 10*3/uL 0.00 - 0.06 04/02 Specimen Type: BLOOD No comment entered. Ordering Provider: PB WALDEN Report Released Date/Time: Apr 02, 2025 02:19 PM Reporting Lab: [facility] [place] [facility] [address] [facility] [address] Performing Lab: [facility] [place] [facility] [address] [facility] [address] [facility] [place] [facility] CBC AND DIFF (AUTO) NUCLEATED ERYTHROCYT ES/100 LEUKOCYTES [RATIO] IN BLOOD BY AUTOMATED COUNT 0.0 0.0 - 0.0 04/02 Specimen Type: BLOOD No comment entered. Ordering Provider: PB WALDEN Report Released Date/Time: Apr 02, 2025 02:19 PM Reporting Lab: [facility] [place] [facility] [address] [facility] [address] Performing Lab: [facility] [place] [facility] [address] [facility] [address] [facility] [place] [facility] CBC AND DIFF (AUTO) NUCLEATED ERYTHROCYT ES [#/VOLUME] IN BLOOD BY AUTOMATED COUNT 0.00 10*3/uL 0.00 - 0.00 04/02 Specimen Type: BLOOD No comment entered. Ordering Provider: PB WALDEN Report Released Date/Time: Apr 02, 2025 02:19 PM Reporting Lab: [facility] [place] [facility] [address] [facility] [address] Performing Lab: [facility] [place] [facility] [address] [facility] [address] [facility] [place] [facility] URINALYS IS CLEAN CATCH COLOR OF URINE Yellow 10/16 Specimen Type: URINE Comment: If Glucose = >500 and Ketones are positive, please alert the Physician. Ordering Provider: PB WALDEN Report Released Date/Time: Oct 16, 2024 10:21 AM Reporting Lab: [facility] [place] [facility] [address] [facility] [address] Performing Lab: [facility] [place] [facility] [address] [facility] [address] [facility] [place] [facility] URINALYS IS CLEAN CATCH APPEARANCE OF URINE Clear 10/16 Specimen Type: URINE Comment: If Glucose = >500 and Ketones are positive, please alert the Physician. Ordering Provider: PB WALDEN Report Released Date/Time: Oct 16, 2024 10:21 AM Reporting Lab: [facility] [place] [facility] [address] [facility] [address] Performing Lab: [facility] [place] [address] [address] [facility] [place] [facility] URINALYS IS CLEAN CATCH GLUCOSE [MASS/VOLU ME] IN URINE Normalmg /dL 10/16 Specimen Type: URINE Comment: If Glucose = >500 and Ketones are positive, please alert the Physician. Ordering Provider: PB WALDEN Report Released Date/Time: Oct 16, 2024 10:21 AM Reporting Lab: [facility] [place] [address] [address] Performing Lab: [facility] [place] [facility] [address] [facility] [address] [facility] [place] [facility] URINALYS IS CLEAN CATCH KETONES [MASS/VOLU ME] IN URINE BY TEST STRIP NEGATIVE mg/dL 10/16 Specimen Type: URINE Comment: If Glucose = >500 and Ketones are positive, please alert the Physician. Ordering Provider: PB WALDEN Report Released Date/Time: Oct 16, 2024 10:21 AM Reporting Lab: [facility] [place] [facility] [address] [facility] [address] Performing Lab: [facility] [place] [facility] [address] [facility] [address] [facility] [place] [facility] URINALYS IS CLEAN CATCH ERYTHROCYT ES [PRESENCE] IN URINE SEDIMENT BY LIGHT MICROSCOPY NEGATIVE mg/dL 10/16 Specimen Type: URINE Comment: If Glucose = >500 and Ketones are positive, please alert the Physician. Ordering Provider: PB WALDEN Report Released Date/Time: Oct 16, 2024 10:21 AM Reporting Lab: [facility] [place] [address] [address] Performing Lab: [facility] [place] [facility] [address] [facility] [address] [facility] [place] [facility] URINALYS IS CLEAN CATCH PROTEIN [MASS/VOLU ME] IN URINE BY TEST STRIP NEGATIVE mg/dL 10/16 Specimen Type: URINE Comment: If Glucose = >500 and Ketones are positive, please alert the Physician. Ordering Provider: PB WALDEN Report Released Date/Time: Oct 16, 2024 10:21 AM Reporting Lab: [facility] [place] [facility] [address] [facility] [address] Performing Lab: [facility] [place] [facility] [address] [facility] [address] [facility] [place] [facility] URINALYS IS CLEAN CATCH NITRITE [PRESENCE] IN URINE NEGATIVE mg/dL 10/16 Specimen Type: URINE Comment: If Glucose = >500 and Ketones are positive, please alert the Physician. Ordering Provider: PB WALDEN Report Released Date/Time: Oct 16, 2024 10:21 AM Reporting Lab: [facility] [place] [facility] [address] [facility] [address] Performing Lab: [facility] [place] [facility] [address] [facility] [address] [facility] [place] [facility] URINALYS IS CLEAN CATCH BILIRUBIN. TOTAL [PRESENCE] IN URINE NEGATIVE mg/dL 10/16 Specimen Type: URINE Comment: If Glucose = >500 and Ketones are positive, please alert the Physician. Ordering Provider: PB WALDEN Report Released Date/Time: Oct 16, 2024 10:21 AM Reporting Lab: [facility] [place] [facility] [address] [facility] [address] Performing Lab: [facility] [place] [facility] [address] [facility] [address] [facility] [place] [facility] URINALYS IS CLEAN CATCH SPECIFIC GRAVITY OF URINE BY REFRACTOME TRY 1.019 1.016 - 1.022 10/16 Specimen Type: URINE Comment: If Glucose = >500 and Ketones are positive, please alert the Physician. Ordering Provider: PB WALDEN Report Released Date/Time: Oct 16, 2024 10:21 AM Reporting Lab: [facility] [place] [facility] [address] [facility] [address] Performing Lab: [facility] [place] [facility] [address] [facility] [address] [facility] [place] [facility] URINALYS IS CLEAN CATCH PH OF URINE BY TEST STRIP 6.0 5.0 - 9.0 10/16 Specimen Type: URINE Comment: If Glucose = >500 and Ketones are positive, please alert the Physician. Ordering Provider: PB WALDEN Report Released Date/Time: Oct 16, 2024 10:21 AM Reporting Lab: [facility] [place] [facility] [address] [facility] [address] Performing Lab: [facility] [place] [facility] [address] [facility] [address] [facility] [place] [facility] URINALYS IS CLEAN CATCH UROBILINOG EN [MASS/VOLU ME] IN URINE BY TEST STRIP Normalmg /dL <2.0 - 2.0 10/16 Specimen Type: URINE Comment: If Glucose = >500 and Ketones are positive, please alert the Physician. Ordering Provider: PB WALDEN Report Released Date/Time: Oct 16, 2024 10:21 AM Reporting Lab: [facility] [place] [facility] [address] [facility] [address] Performing Lab: [facility] [place] [facility] [address] [facility] [address] [facility] [place] [facility] URINALYS IS CLEAN CATCH LEUKOCYTE ESTERASE [PRESENCE] IN URINE BY TEST STRIP NEGATIVE 10/16 Specimen Type: URINE Comment: If Glucose = >500 and Ketones are positive, please alert the Physician. Ordering Provider: PB WALDEN Report Released Date/Time: Oct 16, 2024 10:21 AM Reporting Lab: [facility] [place] [facility] [address] [facility] [address] Performing Lab: [facility] [place] [facility] [address] [facility] [address] [facility] BASIC METABOLI C PANEL (fasting ) UREA NITROGEN [MASS/VOLU ME] IN SERUM OR PLASMA 17 mg/dL 7 - 25 10/04 Specimen Type: SERUM No comment entered. Ordering Provider: PB WALDEN Report Released Date/Time: Oct 04, 2024 12:06 PM Reporting Lab: [facility]N [address] [address] Performing Lab: [facility] HOSPITALRUAB HOSPITALTRN [facility]PITALUSE[address] [address] [facility]ITALRNOR[facility] BALDWIN INFIRMARYN [facility] HOSPITALUSE [facility] BASIC METABOLI C PANEL (fasting ) GLUCOSE [MASS/VOLU ME] IN SERUM OR PLASMA 101 mg/dL 65 - 100 10/04 H Specimen Type: SERUM No comment entered. Ordering Provider: PB WALDEN Report Released Date/Time: Oct 04, 2024 12:06 PM Reporting Lab: [facility]ITALRNOR[facility] INFIRMARYN [facility]OSPITALUSE[address] [address] Performing Lab: [facility]OSPITALRL TRN [facility] HOSPITALUSE[address] [address] [facility] BASIC METABOLI C PANEL (fasting ) SODIUM [MOLES/VOL UME] IN SERUM OR PLASMA 139 mmol/L 135 - 145 10/04 Specimen Type: SERUM No comment entered. Ordering Provider: PB WALDEN Report Released Date/Time: Oct 04, 2024 12:06 PM Reporting Lab: [facility]OSPITALRUAB HOSPITALTRN [facility] HOSPITALUSE[address] [address] Performing Lab: [facility]OSPITALRL TRN [facility] HOSPITALUSE[address] [address] [facility] BASIC METABOLI C PANEL (fasting ) POTASSIUM [MOLES/VOL UME] IN SERUM OR PLASMA 4.5 mmol/L 3.5 - 5.0 10/04 Specimen Type: SERUM No comment entered. Ordering Provider: PB WALDEN Report Released Date/Time: Oct 04, 2024 12:06 PM Reporting Lab: [facility]PITALRUAB HOSPITALTRN [facility] HOSPITALUSE[address] [address] Performing Lab: [facility] HOSPITALRL [place]STRN [place] [facility] [address] [facility] [address] [facility]OSPITALRL WSTRN MASSUSE [facility] BASIC METABOLI C PANEL (fasting ) CHLORIDE [MOLES/VOL UME] IN SERUM OR PLASMA 108 mmol/L 100 - 110 10/04 Specimen Type: SERUM No comment entered. Ordering Provider: PB WALDEN Report Released Date/Time: Oct 04, 2024 12:06 PM Reporting Lab: [facility] [place] [facility] [address] [facility] [address] Performing Lab: [facility]N [facility]USEMOHA[facility] [address] [address] [facility]TRN [facility]OS[facility]ITALUSE [facility] BASIC METABOLI C PANEL (fasting ) CARBON DIOXIDE, TOTAL [MOLES/VOL UME] IN SERUM OR PLASMA 23 meq/L 20 - 30 10/04 Specimen Type: SERUM No comment entered. Ordering Provider: PB WALDEN Report Released Date/Time: Oct 04, 2024 12:06 PM Reporting Lab: [facility] HOSPITALTRN [place] [facility] [address] [address] Performing Lab: [facility] W[facility]N [facility]PITALUSETS [facility] [address] [address] [facility]ITAL[facility] BASIC METABOLI C PANEL (fasting ) CALCIUM [MASS/VOLU ME] IN SERUM OR PLASMA 8.8 mg/dL 8.5 - 10.2 10/04 Specimen Type: SERUM No comment entered. Ordering Provider: PB WALDEN Report Released Date/Time: Oct 04, 2024 12:06 PM Reporting Lab: [facility]PITALUSETS [facility] [address] [address] Performing Lab: [facility] W[facility]N [facility]PITALUSETS [facility] [address] [address] [facility]TRN [facility]PITALUSE [facility] BASIC METABOLI C PANEL (fasting ) CREATININE [MASS/VOLU ME] IN SERUM OR PLASMA 1.11 mg/dL 0.50 - 1.40 10/04 Specimen Type: SERUM No comment entered. Ordering Provider: PB WALDEN Report Released Date/Time: Oct 04, 2024 12:06 PM Reporting Lab: [facility] [place] [facility] [address] [facility] [address] Performing Lab: [facility] [place] [facility] [address] [facility] [address] [facility] [place] [facility] BASIC METABOLI C PANEL (fasting ) GLOMERULAR FILTRATION RATE/1.73 SQ M.PREDICTE D [VOLUME RATE/AREA] IN SERUM, PLASMA OR BLOOD BY CREATININE -BASED FORMULA (CKD-EPI 2020) 68 mL/min 60 10/04 Specimen Type: SERUM No comment entered. Ordering Provider: PB WALDEN Report Released Date/Time: Oct 04, 2024 12:06 PM Reporting Lab: [facility] [place] [facility] [address] [facility] [address] Performing Lab: [facility] [place] [facility] [address] [facility] [address] [facility] [place] [facility] LIVER FUNCTION PROTEIN [MASS/VOLU ME] IN SERUM OR PLASMA 6.4 g/dL 6.0 - 8.3 10/04 Specimen Type: SERUM No comment entered. Ordering Provider: PB WALDEN Report Released Date/Time: Oct 04, 2024 12:06 PM Reporting Lab: [facility] [place] [facility] [address] [facility] [address] Performing Lab: [facility] [place] [facility] [address] [facility] [address] [facility] [place] [facility] LIVER FUNCTION ALBUMIN [MASS/VOLU ME] IN SERUM OR PLASMA 3.5 g/dL 3.5 - 5.0 10/04 Specimen Type: SERUM No comment entered. Ordering Provider: PB WALDEN Report Released Date/Time: Oct 04, 2024 12:06 PM Reporting Lab: [facility] [place] [facility] [address] [facility] [address] Performing Lab: [facility] [place] [facility] [address] [facility] [address] [facility] [place] [facility] LIVER FUNCTION ALKALINE PHOSPHATAS E [ENZYMATIC ACTIVITY/V OLUME] IN SERUM OR PLASMA 66 U/L 40 - 150 10/04 Specimen Type: SERUM No comment entered. Ordering Provider: PB WALDEN Report Released Date/Time: Oct 04, 2024 12:06 PM Reporting Lab: [facility] [place] [facility] [address] [facility] [address] Performing Lab: [facility] [place] [facility] [address] [facility] [address] [facility] [place] [facility] LIVER FUNCTION ASPARTATE AMINOTRANS FERASE [ENZYMATIC ACTIVITY/V OLUME] IN SERUM OR PLASMA 13 U/L 5 - 34 10/04 Specimen Type: SERUM No comment entered. Ordering Provider: PB WALDEN Report Released Date/Time: Oct 04, 2024 12:06 PM Reporting Lab: [facility] [place] [facility] [address] [facility] [address] Performing Lab: [facility] [place] [facility] [address] [facility] [address] [facility] [place] [facility] LIVER FUNCTION ALANINE AMINOTRANS FERASE [ENZYMATIC ACTIVITY/V OLUME] IN SERUM OR PLASMA 15 U/L 10/04 Specimen Type: SERUM No comment entered. Ordering Provider: PB WALDEN Report Released Date/Time: Oct 04, 2024 12:06 PM Reporting Lab: [facility] [place] [facility] [address] [facility] [address] Performing Lab: [facility] [place] [facility] [address] [facility] [address] [facility] [place] [facility] LIVER FUNCTION BILIRUBIN. TOTAL [MASS/VOLU ME] IN SERUM OR PLASMA 0.7 mg/dL 0.2 - 1.2 10/04 Specimen Type: SERUM No comment entered. Ordering Provider: PB WALDEN Report Released Date/Time: Oct 04, 2024 12:06 PM Reporting Lab: [facility] [place] [facility] [address] [facility] [address] Performing Lab: [facility] [place] [address] [address] [facility] [place] [facility] LIPID PANEL FASTING CHOLESTERO L [MASS/VOLU ME] IN SERUM OR PLASMA 88 mg/dL 10/04 Specimen Type: SERUM No comment entered. Ordering Provider: PB WALDEN Report Released Date/Time: Oct 04, 2024 12:06 PM Reporting Lab: [facility] [place] [facility] [address] [facility] [address] Performing Lab: [facility] [place] [facility] [address] [facility] [address] [facility] [place] [facility] LIPID PANEL FASTING TRIGLYCERI DE [MASS/VOLU ME] IN SERUM OR PLASMA 84 mg/dL 0 - 150 10/04 Specimen Type: SERUM No comment entered. Ordering Provider: PB WALDEN Report Released Date/Time: Oct 04, 2024 12:06 PM Reporting Lab: [facility] [place] [address] [address] Performing Lab: [facility] [place] [address] [address] [facility] [place] [facility] LIPID PANEL FASTING CHOLESTERO L IN LDL [MASS/VOLU ME] IN SERUM OR PLASMA BY CALCULATIO N 41 mg/dL 0 - 129 10/04 Specimen Type: SERUM No comment entered. Ordering Provider: PB WALDEN Report Released Date/Time: Oct 04, 2024 12:06 PM Reporting Lab: [facility] [place] [address] [address] Performing Lab: [facility] [place] [address] [address] [facility] [place] [facility] LIPID PANEL FASTING CHOLESTERO L.TOTAL/CH OLESTEROL IN HDL [MASS RATIO] IN SERUM OR PLASMA 2.9 10/04 Specimen Type: SERUM No comment entered. Ordering Provider: PB WALDEN Report Released Date/Time: Oct 04, 2024 12:06 PM Reporting Lab: [facility] [place] [address] [address] Performing Lab: [facility] [place] [place] [facility] [address] [facility] [address] [facility] LIPID PANEL FASTING CHOLESTERO L IN HDL [MASS/VOLU ME] IN SERUM OR PLASMA 30 mg/dL 40 - 60 10/04 L Specimen Type: SERUM No comment entered. Ordering Provider: PB WALDEN Report Released Date/Time: Oct 04, 2024 12:06 PM Reporting Lab: [facility] [address] [facility] [address] Performing Lab: [facility] [address] [facility] [address] [facility]N [facility] HOSPITALUSE [facility] CBC AND DIFF (AUTO) LEUKOCYTES [#/VOLUME] IN BLOOD BY AUTOMATED COUNT 6.37 10*3/uL 4.50 - 11.00 10/04 Specimen Type: BLOOD No comment entered. Ordering Provider: PB WALDEN Report Released Date/Time: Oct 04, 2024 12:06 PM Reporting Lab: [facility] [address] [facility] [address] Performing Lab: [facility] [address] [facility] [address] [facility]ITALR[facility]N [facility] HOSPITALUSE [facility] CBC AND DIFF (AUTO) ERYTHROCYT ES [#/VOLUME] IN BLOOD BY AUTOMATED COUNT 3.82 10*6/uL 4.23 - 5.66 10/04 L Specimen Type: BLOOD No comment entered. Ordering Provider: PB WALDEN Report Released Date/Time: Oct 04, 2024 12:06 PM Reporting Lab: [facility]ITAL[facility] [address] [facility] [address] Performing Lab: [facility]ITAL[facility] [address] [facility] [address] [facility]N [facility] HOSPITALUSE [facility] CBC AND DIFF (AUTO) HEMOGLOBIN [MASS/VOLU ME] IN BLOOD 12.1 g/dL 12.8 - 17 10/04 L Specimen Type: BLOOD No comment entered. Ordering Provider: PB WALDEN Report Released Date/Time: Oct 04, 2024 12:06 PM Reporting Lab: [facility] [place] [facility] [address] [facility] [address] Performing Lab: [facility] [place] [facility] [address] [facility] [address] [facility] [place] [facility] CBC AND DIFF (AUTO) HEMATOCRIT [VOLUME FRACTION] OF BLOOD BY AUTOMATED COUNT 36.2 39.2 - 50.4 10/04 L Specimen Type: BLOOD No comment entered. Ordering Provider: PB WADLEN Report Released Date/Time: Oct 04, 2024 12:06 PM Reporting Lab: [facility] [place] [facility] [address] [facility] [address] Performing Lab: [facility] [place] [facility] [address] [facility] [address] [facility] [place] [facility] CBC AND DIFF (AUTO) MCV [ENTITIC VOLUME] BY AUTOMATED COUNT 94.8 fL 82 - 99 10/04 Specimen Type: BLOOD No comment entered. Ordering Provider: PB WALDEN Report Released Date/Time: Oct 04, 2024 12:06 PM Reporting Lab: [facility] [place] [facility] [address] [facility] [address] Performing Lab: [facility] [place] [facility] [address] [facility] [address] [facility] [place] [facility] CBC AND DIFF (AUTO) MCHC [MASS/VOLU ME] BY AUTOMATED COUNT 33.4 g/dL 30.8 - 35.1 10/04 Specimen Type: BLOOD No comment entered. Ordering Provider: PB WALDEN Report Released Date/Time: Oct 04, 2024 12:06 PM Reporting Lab: [facility] [place] [facility] [address] [facility] [address] Performing Lab: [facility] [place] [facility] [address] [facility] [address] [facility] [place] [facility] CBC AND DIFF (AUTO) PLATELETS [#/VOLUME] IN BLOOD BY AUTOMATED COUNT 219 10*3/uL 140 - 360 10/04 Specimen Type: BLOOD No comment entered. Ordering Provider: PB WALDEN Report Released Date/Time: Oct 04, 2024 12:06 PM Reporting Lab: [facility] [place] [facility] [address] [facility] [address] Performing Lab: [facility] [place] [facility] [address] [facility] [address] [facility] [place] [facility] CBC AND DIFF (AUTO) ERYTHROCYT E DISTRIBUTI ON WIDTH [RATIO] BY AUTOMATED COUNT 13.2 12.0 - 16.0 10/04 Specimen Type: BLOOD No comment entered. Ordering Provider: PB WALDEN Report Released Date/Time: Oct 04, 2024 12:06 PM Reporting Lab: [facility] [place] [facility] [address] [facility] [address] Performing Lab: [facility] [place] [facility] [address] [facility] [address] [facility] [place] [facility] CBC AND DIFF (AUTO) MONOCYTES [#/VOLUME] IN BLOOD BY AUTOMATED COUNT 0.48 10*3/uL 0.30 - 1.10 10/04 Specimen Type: BLOOD No comment entered. Ordering Provider: PB WALDEN Report Released Date/Time: Oct 04, 2024 12:06 PM Reporting Lab: [facility] [place] [facility] [address] [facility] [address] Performing Lab: [facility] [place] [facility] [address] [facility] [address] [facility] [place] [facility] CBC AND DIFF (AUTO) MCH [ENTITIC MASS] BY AUTOMATED COUNT 31.7 pg 26.2 - 32.6 10/04 Specimen Type: BLOOD No comment entered. Ordering Provider: PB WALDEN Report Released Date/Time: Oct 04, 2024 12:06 PM Reporting Lab: [facility] [place] [facility] [address] [facility] [address] Performing Lab: [facility] [place] [facility] [address] [facility] [address] [facility] [place] [facility] CBC AND DIFF (AUTO) NEUTROPHIL S/100 LEUKOCYTES IN BLOOD BY AUTOMATED COUNT 61.8 43.7 - 75.8 10/04 Specimen Type: BLOOD No comment entered. Ordering Provider: PB WALDEN Report Released Date/Time: Oct 04, 2024 12:06 PM Reporting Lab: [facility] [place] [facility] [address] [facility] [address] Performing Lab: [facility] [place] [facility] [address] [facility] [address] [facility] [place] [facility] CBC AND DIFF (AUTO) LYMPHOCYTE S/100 LEUKOCYTES IN BLOOD BY AUTOMATED COUNT 25.7 14.0 - 42.3 10/04 Specimen Type: BLOOD No comment entered. Ordering Provider: PB WALDEN Report Released Date/Time: Oct 04, 2024 12:06 PM Reporting Lab: [facility] [place] [facility] [address] [facility] [address] Performing Lab: [facility] [place] [facility] [address] [facility] [address] [facility] [place] [facility] CBC AND DIFF (AUTO) MONOCYTES/ 100 LEUKOCYTES IN BLOOD BY AUTOMATED COUNT 7.5 5.1 - 13.7 10/04 Specimen Type: BLOOD No comment entered. Ordering Provider: PB WALDEN Report Released Date/Time: Oct 04, 2024 12:06 PM Reporting Lab: [facility] [place] [facility] [address] [facility] [address] Performing Lab: [facility] [place] [facility] [address] [facility] [address] [facility] [place] [facility] CBC AND DIFF (AUTO) EOSINOPHIL S/100 LEUKOCYTES IN BLOOD BY AUTOMATED COUNT 4.2 0.4 - 6.8 10/04 Specimen Type: BLOOD No comment entered. Ordering Provider: PB WALDEN Report Released Date/Time: Oct 04, 2024 12:06 PM Reporting Lab: [facility] [place] [facility] [address] [facility] [address] Performing Lab: [facility] [place] [facility] [address] [place] [address] [facility] [place] [facility] CBC AND DIFF (AUTO) BASOPHILS/ 100 LEUKOCYTES IN BLOOD BY AUTOMATED COUNT 0.6 0.1 - 2.0 10/04 Specimen Type: BLOOD No comment entered. Ordering Provider: PB WALDEN Report Released Date/Time: Oct 04, 2024 12:06 PM Reporting Lab: [facility] [place] [address] [address] Performing Lab: [facility] [place] [facility] [address] [facility] [address] [facility] [place] [facility] CBC AND DIFF (AUTO) NEUTROPHIL S [#/VOLUME] IN BLOOD BY AUTOMATED COUNT 3.93 10*3/uL 2.20 - 7.60 10/04 Specimen Type: BLOOD No comment entered. Ordering Provider: PB WALDEN Report Released Date/Time: Oct 04, 2024 12:06 PM Reporting Lab: [facility] [place] [address] [address] Performing Lab: [facility] [place] [address] [address] [facility] [place] [facility] CBC AND DIFF (AUTO) LYMPHOCYTE S [#/VOLUME] IN BLOOD BY AUTOMATED COUNT 1.64 10*3/uL 1.00 - 3.20 10/04 Specimen Type: BLOOD No comment entered. Ordering Provider: PB WALDEN Report Released Date/Time: Oct 04, 2024 12:06 PM Reporting Lab: [facility] [place] [address] [address] Performing Lab[facility] [place] [address] [address] [facility] [place] [facility] CBC AND DIFF (AUTO) EOSINOPHIL S [#/VOLUME] IN BLOOD BY AUTOMATED COUNT 0.27 10*3/uL 0.03 - 0.44 10/04 Specimen Type: BLOOD No comment entered. Ordering Provider: PB WALDEN Report Released Date/Time: Oct 04, 2024 12:06 PM Reporting Lab: [facility] [place] [facility] [address] [facility] [address] Performing Lab: [facility] [place] [facility] [address] [facility] [address] [facility] [place] [facility] CBC AND DIFF (AUTO) BASOPHILS [#/VOLUME] IN BLOOD BY AUTOMATED COUNT 0.04 10*3/uL 0.01 - 0.13 10/04 Specimen Type: BLOOD No comment entered. Ordering Provider: PB WALDEN Report Released Date/Time: Oct 04, 2024 12:06 PM Reporting Lab: [facility] [place] [facility] [address] [facility] [address] Performing Lab: [facility] [facility] [address] [facility] [address] [facility] [place] [facility] CBC AND DIFF (AUTO) IMMATURE GRANULOCYT ES/100 LEUKOCYTES IN BLOOD BY AUTOMATED COUNT 0.2 0.0 - 0.7 10/04 Specimen Type: BLOOD No comment entered. Ordering Provider: PB WALDEN Report Released Date/Time: Oct 04, 2024 12:06 PM Reporting Lab: [facility] [place] [address] [address] Performing Lab: [facility] [facility] [address] [facility] [address] [facility] [place] [facility] CBC AND DIFF (AUTO) IMMATURE GRANULOCYT ES [#/VOLUME] IN BLOOD BY AUTOMATED COUNT 0.01 10*3/uL 0.00 - 0.06 10/04 Specimen Type: BLOOD No comment entered. Ordering Provider: PB WALDEN Report Released Date/Time: Oct 04, 2024 12:06 PM Reporting Lab: [facility] [place] [facility] [address] [facility] [address] Performing Lab: [facility] [place] [address] [address] [facility] [facility] CBC AND DIFF (AUTO) NUCLEATED ERYTHROCYT ES/100 LEUKOCYTES [RATIO] IN BLOOD BY AUTOMATED COUNT 0.0 0.0 - 0.0 10/04 Specimen Type: BLOOD No comment entered. Ordering Provider: PB WALDEN Report Released Date/Time: Oct 04, 2024 12:06 PM Reporting Lab: [facility] [facility] [address] [facility] [address] Performing Lab: [facility] [facility] [address] [facility] [address] [facility] [facility] CBC AND DIFF (AUTO) NUCLEATED ERYTHROCYT ES [#/VOLUME] IN BLOOD BY AUTOMATED COUNT 0.00 10*3/uL 0.00 - 0.00 10/04 Specimen Type: BLOOD No comment entered. Ordering Provider: PB WALDEN Report Released Date/Time: Oct 04, 2024 12:06 PM Reporting Lab: [facility] [place] [facility] [address] [facility] [address] Performing Lab: [facility] [place] [facility] [address] [facility] [address] [facility] [place] [facility] TSH THYROTROPI N [UNITS/VOL UME] IN SERUM OR PLASMA 2.11 u[IU]/mL 0.35 - 5.00 10/04 Specimen Type: SERUM No comment entered. Ordering Provider: PB WALDEN Report Released Date/Time: Oct 04, 2024 12:06 PM Reporting Lab: [facility] [place] [facility] [address] [facility] [address] Performing Lab: [facility] [address] [address] [facility] [place] [facility] Vital Signs Combined list of inpatient and outpatient Vital Signs from Department of Defense and Veterans Affairs, ranging from 12 months to all on record, depending upon the facility. Vital Sign Value Date Comments Source SYSTOLIC BLOOD PRESSURE 154 04/23/20 25 09:54:41 [facility] [facility] DIASTOLIC BLOOD PRESSURE 96 025 09:54:41 [facility] [facility] PULSE OXIMETRY 96 % 04/23/2025 09:54:41 [facility] [place] [place] [facility] WEIGHT 214 04/23/2025 09:54:41 [facility] [place] [facility] BMI 30 kg/m2 04/23/2025 09:54:41 [facility] [place] [facility] PAIN 5 04/23/2025 09:54:41 [facility] [place] [facility] TEMPERATURE 97.7 04/23/2025 09:54:41 [facility] [place] [facility] PULSE 92 04/23/2025 09:54:41 [facility] [place] [facility] RESPIRATION 16 04/23/2025 09:54:41 [facility] [place] [facility] SYSTOLIC BLOOD PRESSURE 106 04/02/20 25 13:53:59 [facility] [place] [facility] DIASTOLIC BLOOD PRESSURE 70 025 13:53:59 [facility] [place] [facility] PULSE OXIMETRY 96 % 04/02/2025 13:53:59 [facility] [place] [facility] WEIGHT 208 04/02/2025 13:53:59 [facility] [place] [facility] BMI 29 kg/m2 04/02/2025 13:53:59 [facility] [place] [facility] PAIN 0 04/02/2025 13:53:59 [facility] [place] [facility] TEMPERATURE 97.4 04/02/2025 13:53:59 [facility] [place] [facility] PULSE 74 04/02/2025 13:53:59 [facility] [place] [facility] RESPIRATION 18 04/02/2025 13:53:59 [facility] [place] [facility] SYSTOLIC BLOOD PRESSURE 128 03/27/20 25 14:33:46 [facility] [place] [facility] DIASTOLIC BLOOD PRESSURE 61 025 14:33:46 [facility] [place] [facility] PULSE OXIMETRY 96 % 03/27/2025 14:33:46 [facility] [place] [facility] WEIGHT 207 03/27/2025 14:33:46 [facility] [place] [facility] BMI 29 kg/m2 03/27/2025 14:33:46 [facility] [place] [facility] PAIN 0 03/27/2025 14:33:46 [facility] [place] [facility] TEMPERATURE 97.2 03/27/2025 14:33:46 [facility] [place] [facility] PULSE 97 03/27/2025 14:33:46 [facility] [place] [facility] RESPIRATION 18 03/27/2025 14:33:46 [facility] [place] [facility] SYSTOLIC BLOOD PRESSURE 122 03/19/20 08:41:46 [facility] [place] [facility] DIASTOLIC BLOOD PRESSURE 68 025 08:41:46 [facility] [place] [facility] PULSE OXIMETRY 94 % 03/19/2025 08:41:46 [facility] [place] [facility] WEIGHT 213 03/19/2025 08:41:46 [facility] [place] [facility] BMI 30 kg/m2 03/19/2025 08:41:46 [facility] [place] [facility] PAIN 0 03/19/2025 08:41:46 [facility] [place] [facility] TEMPERATURE 98.2 03/19/2025 08:41:46 [facility] [place] [facility] PULSE 82 03/19/2025 08:41:46 [facility] [place] [facility] RESPIRATION 16 03/19/2025 08:41:46 [facility] [place] [facility] SYSTOLIC BLOOD PRESSURE 122 11/22/19 25 11:18:59 [facility] [place] [facility] DIASTOLIC BLOOD PRESSURE 62 025 11:18:59 [facility] [place] [facility] PULSE OXIMETRY 99 11/21/2024 11:18:59 [facility] [place] [facility] WEIGHT 208.5 11/21/2024 11:18:59 [facility] [place] [facility] BMI 30 kg/m2 11/21/2024 11:18:59 [facility] [place] [facility] PAIN 0 11/21/2024 11:18:59 [facility] [place] [facility] HEIGHT 70.5 11/21/2024 11:18:59 [facility] TEMPERATURE 97.8 11/21/2024 11:18:59 [facility] PULSE 100 11/21/2024 11:18:59 [facility] RESPIRATION 16 11/21/2024 11:18:59 [facility] Encounters Combined list of: 1) [facility]ters [facility] going backup to the last 18 months, not all [facility] inpatient encounters are included; 2) Encounters from the Department of [facility] facilities going backup to 280 months. Location Location Details Encounter Type Encounter Number Reason For Visit Attending Provider ADM Date DC Date Status Disposition Source [facility] THERAPEUTI C EXERCISES [id number] Diagnos is: ICD-10- CM M25.512 Pain in left shoulde r MACHON,BRAULIO LIE E 11/23 [facility] OFF/OP EST NOVEMBER X REQ PHY/QHP [id number] Diagnos is: ICD-10- CM I73.9 Periphe ral vascula r disease , unspeci MARCO ANTONIO Perez VIOLA 11/27 [facility] MANUAL THERAPY 1/> REGIONS [id number] Diagnos is: ICD-10- CM M54.2 Cervica lgia SERGEY TAVARES RA 12/07 [facility] Outpatient Encounter [id number] 01/01 [facility] Outpatient Encounter [id number] 01/04 [facility] OFFICE O/P EST LOW 20 MIN [id number] Diagnos is: ICD-10- CM L71.8 Other rosacea KAYLEIGH REYES 01/11 [facility] RPR&REFITG SPECT XCP APHAKIA [id number] Diagnos is: ICD-10- CM Z46.0 Encount er for fit/adj st of spectac les and contact lenses PRADIPJohnna HUNTLEY 01/11 [facility] Out[facility] Encounter [id number] 01/18 [facility] Out[facility] Encounter [id number] 01/29 [facility] OFFICE O/P EST SF 10 MIN [id number] Diagnos is: ICD-10- CM M54.2 Cervica SERGEY Bridges RA 01/29 [facility] Out[facility] Encounter [id number] 01/29 [facility] OFF/OP EST MAY X REQ PHY/QHP [id number] Diagnos is: ICD-10- CM I73.9 Periphe ral vascula r disease , unspeci MARCO ANTONIO Perez 02/05 [facility] Out[facility] Encounter [id number] 02/06 [facility] [facility] MANUAL THERAPY 1/> REGIONS [id number] Diagnos is: ICD-10- CM M54.2 Cervica SERGEY Bridges 02/22 [facility] HEARING AID REPAIR/MOD IFYING [id number] Diagnos is: ICD-10- CM Z46.1 Encount er for fitting and adjustm ent of hearing aid SOHAN APONTE 02/23 [facility] MANUAL THERAPY 1/> REGIONS [id number] Diagnos is: ICD-10- CM M77.11 Lateral epicond ylitis, right elbow MACHON,BRAULIO LIE E 03/06 [facility] NURSING ASSESSMENT /EVALUATN [id number] [id number] Diagnos is: ICD-10- CM M25.519 Pain in unspeci fied shoulde Malini Fernando 03/06 [facility] OFFICE O/P EST LOW 20 MIN [id number] Diagnos is: ICD-10- CM M54.2 Cervica harjit OTTO MOORE 03/06 [facility] Outpatient Encounter [id number] 03/07 [facility] MANUAL THERAPY 1/> REGIONS [id number] [id number] Diagnos is: ICD-10- CM M54.2 Cervica harjit TAVARESSERGEY 03/09 [facility] PRINCESS MDLTY 1+ULTRASOU ND EA 15 [id number] [id number] Diagnos is: ICD-10- CM M77.11 Lateral epicond ylitis, right elbow MACHON,BRAULIO LIE E 03/13 [facility] HEARING AID FITTING/CH ECKING [id number] [id number] Diagnos is: ICD-10- CM Z46.1 Encount er for fitting and adjustm ent of hearing aid HOMER JORDAN L 03/14 [facility] MANUAL THERAPY 1/> REGIONS [id number] [id number] Diagnos is: ICD-10- CM M54.2 Cervica SERGEY Bridges RA 03/16 [facility] MANUAL THERAPY 1/> REGIONS [id number] [id number] Diagnos is: ICD-10- CM M54.2 Cervica SERGEY Bridges RA 03/20 [facility] Outpatient Encounter [id number] 03/20 [facility] MANUAL THERAPY 1/> REGIONS [id number] [id number] Diagnos is: ICD-10- CM M54.2 Cervica SERGEY Bridges RA 03/23 [facility] OFF/OP EST NOVEMBER X REQ PHY/QHP 66571-9.63 [id number] Diagnos is: ICD-10- CM I73.9 Periphe ral vascula r disease , unspeci MARCO ANTONIO Perez 03/29 [facility] Out[facility] Encounter [id number] 03/29 [facility] MANUAL THERAPY 1/> REGIONS [id number] [id number] Diagnos is: ICD-10- CM M54.2 SERGEY Patel RA 03/30 [facility] OFFICE O/P EST MOD 30 MIN [id number] [id number] Diagnos is: ICD-10- CM L71.8 Other KAYLEIGH Topete 04/03 [facility] FUNDUS PHOTOGRAPH Y W/I&R 46963-6.63 [id number] Diagnos is: ICD-10- CM 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, left eye KAYLEIGH REYES 04/03 [facility] Out[facility] Encounter [id number] 04/03 [facility] MANUAL THERAPY 1/> REGIONS [id number] [id number] Diagnos is: ICD-10- CM M54.2 Cervica SERGEY Bridges RA 04/04 [facility] MANUAL THERAPY 1/> REGIONS [id number] [id number] Diagnos is: ICD-10- CM M25.512 Pain in left shoulde r RONNYBRAULIO E 04/06 [facility] MANUAL THERAPY 1/> REGIONS 67587-8.63 1. Diagnos is: ICD-10- CM M54.2 Cervica SERGEY Bridges 04/11 [facility] THERAPEUTI C EXERCISES [id number] [id number] Diagnos is: ICD-10- CM M25.512 Pain in left shoulde r RONNYBRAULIO LIE E 04/16 [facility] Outpatient Encounter [id number] [facility] OFFICE O/P EST LOW 20 MIN 90652-9.63 1. 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 w/o ang pctJEAN Jallho RD 04/23 [facility] THERAPEUTI C EXERCISES [id number] [id number] Diagnos is: ICD-10- CM M25.512 Pain in left shoulde r RONNYBRAULIO LIE E 04/24 [facility] Outpatient Encounter [id number] [facility] Outpatient Encounter [id number] [id number] 04/27 [facility] THERAPEUTI C EXERCISES [id number] [id number] Diagnos is: ICD-10- CM M25.512 Pain in left shoulde r RONNYBRAULIO LIE E 05/01 [facility] THERAPEUTI C EXERCISES [id number] [id number] Diagnos is: ICD-10- CM M25.512 Pain in left shoulde r MACHON,BRAULIO LIE E 05/16 [facility] HEARING AID REPAIR/MOD IFYING [id number] [id number] Diagnos is: ICD-10- CM Z46.1 Encount er for fitting and adjustm ent of hearing aid AURELIA NAVARRETE L 05/16 [facility] THERAPEUTI C EXERCISES [id number] [id number] Diagnos is: ICD-10- CM M25.512 Pain in left shoulde r RONNYBRAULIO LIE E 05/21 [facility] THERAPEUTI C EXERCISES [id number] [id number] Diagnos is: ICD-10- CM M25.512 Pain in left shoulde BARULIO Paez LIE E 05/29 [facility] THERAPEUTI C EXERCISES [id number] [id number] Diagnos is: ICD-10- CM M25.512 Pain in left shoulde BRAULIO Paez LIE E 06/05 [facility] PARNG/CUTG B9 HYPRKR LES 2-4 [id number] [id number] Diagnos is: ICD-10- CM I73.9 Periphe ral vascula r disease , unspeci MARCO ANTONIO Perez VIOLA 06/07 [facility] THERAPEUTI C EXERCISES [id number] [id number] Diagnos is: ICD-10- CM M25.512 Pain in left shoulde BRAULIO Paez LIE E 06/12 [facility] Outpatient Encounter [id number] 06/14 [facility] QNHP OL DIG ASSMT&MGMT 5-10 62050-4.63 1. Diagnos is: ICD-10- CM Z12.2 Encntr screen for maligna nt neoplas m of respira tory organs PUCHALSKI, VALERI L 06/14 [facility] Outpatient Encounter [id number] 1.06/14 [facility] OFFICE O/P EST SF 10 MIN 71366-6.63 1. Diagnos is: ICD-10- CM M54.2 Cervica HOMER BirdgesU RA 06/15 [facility] THERAPEUTI C EXERCISES [id number] 1. Diagnos is: ICD-10- CM M25.512 Pain in left shoulde r RONNY,BRAULIO LIE E 06/26 [facility] MANUAL THERAPY / REGIONS [id number] [id number] Diagnos is: ICD-10- CM M54.2 Cervica HOMER BridgesU RA 06/26 [facility] THERAPEUTI C EXERCISES [id number] [id number] Diagnos is: ICD-10- CM M25.512 Pain in left shoulde r MACHON,BRAULIO LIE E 07/03 [facility] Outpatient Encounter [id number] [facility] THERAPEUTI C EXERCISES [id number] [id number] Diagnos is: ICD-10- CM M25.512 Pain in left shoulde r RONNYBRAULIO LIE E 07/10 [facility] Out[facility] Encounter [id number] 07/12 [facility] MANUAL THERAPY 1/ REGIONS [id number] [id number] Diagnos is: ICD-10- CM M54.2 Cervica harjit TAVARESRINCON RA 07/12 [facility] Out[facility] Encounter [id number] [id number] 07/24 [facility] THERAPEUTI C EXERCISES [id number] [id number] Diagnos is: ICD-10- CM M25.512 Pain in left shoulde r RONNYBRAULIO LIE E 07/24 [facility] Out[facility] Encounter [id number] 08/07 [facility] Encounter [id number] [id number] [facility] THERAPEUTI C EXERCISES [id number] [id number] Diagnos is: ICD-10- CM M25.512 Pain in left shoulde r RONNYBRAULIO LIE E 08/10 [facility] Out[facility] Encounter [id number] 08/13 [facility] OFF/OP EST NOVEMBER X REQ PHY/QHP [id number] [id number] Diagnos is: ICD-10- CM I73.9 Periphe ral vascula r disease , unspeci MARCO ANTONIO Perez VIOLA 08/14 [facility] THERAPEUTI C EXERCISES [id number] [id number] Diagnos is: ICD-10- CM M25.512 Pain in left shoulde r RONNY,BRAULIO LIE E 08/28 [facility] THERAPEUTI C EXERCISES [id number] [id number] Diagnos is: ICD-10- CM M25.512 Pain in left shoulde r RONNY,BRAULIO LIE E 09/12 [facility] Encounter [id number] 09/13 [facility] Encounter [id number] 09/29 [facility] TRIM NAIL(S) 26409-3.63 [id number] Diagnos is: ICD-10- CM I73.9 Periphe ral vascula r disease , unspeci MARCO ANTONIO Perez VIOLA 10/04 [facility] Out[facility] Encounter [id number] [id number] 10/12 [facility] Out[facility] Encounter [id number] [id number] 10/16 [facility] OFFICE O/P EST LOW 20 MIN [id number] [id number] Diagnos is: ICD-10- CM I10 Essenti al (primar y) hyperte nsion JEAN WALDEN RD D 10/16 [facility] Encounter [id number] [id number] [facility] En[facility] [id number] [id number] 11/11 [facility] Out[facility] Encounter [id number] [id number]/11 [facility] Encounter [id number] 1.11/12 [facility] Encounter [id number] [id number]/12 [facility] Encounter [id number] [id number]/12 [facility] Encounter [id number] [id number]/12 [facility] Encounter [id number] [id number]/13 [facility] En[facility] [id number] [id number] 11/15 [facility] En[facility] [id number] [id number] 11/16 [facility] En[facility] [id number] [id number] 11/20 [facility] Encounter [id number] [id number] 11/21 [facility] OFFICE O/P EST LOW 20 MIN [id number] Diagnos is: ICD-10- CM I63.9 Cerebra l infarct ion, unspeci fied JEAN WALDEN RD 11/21 [facility] En[facility] [id number] 11/26 [facility] En[facility] [id number] [id number] 11/29 [facility] Encounter [id number] 12/07 [facility] TRIM NAIL(S) [id number] [id number] Diagnos is: ICD-10- CM I73.9 Periphe ral vascula r disease , unspeci fievan MARCO ANTONIO CORRALES 12/12 [facility] En[facility] [id number] [id number] 12/20 [facility] Out[facility] Encounter [id number] 12/27 [facility] OFFICE O/P EST MOD 30 MIN [id number] Diagnos is: ICD-10- CM L71.8 Other rosacea ERIC,NM GAMALIEL R 01/01 [facility] En[facility] [id number] [id number] 02/06 [facility] Out[facility] Encounter [id number] [id number] 02/21 [facility] TRIM NAIL(S) [id number] [id number] Diagnos is: ICD-10- CM I73.9 Periphe ral vascula r disease , unspeci MARCO ANTONIO Perez R 02/26 [facility] En[facility] [id number] 02/26 [facility] Encounter [id number] 03/05 [facility] Encounter [id number] 03/13 [facility] RN SERVICES UP TO 15 MINUTES [id number] [id number] Diagnos is: ICD-10- CM R13.19 Other dysphag ia PRINTER,CO SAVITA DOT 03/15 [facility] Out[facility] Encounter [id number] 03/15 [facility] SYNCH AUDIO-ONLY EST LOW 20 [id number] [id number] Diagnos is: ICD-10- CM R49.8 Other voice and resonan ce disorde rs RENÉ,YES UMBERTO Gibson MD 03/15 [facility] OFFICE O/P EST LOW 20 MIN [id number] [id number] Diagnos is: ICD-10- CM J37.0 Chronic laryngi tis JEAN WALDEN RD D 03/19 [facility] Out[facility] Encounter [id number] 03/26 [facility] OFF/OP CNSLTJ NEW/EST MOD 40 [id number] Diagnos is: ICD-10- CM R49.0 Dysphon ia UMER ADKINS 03/27 [facility] OFF/OP EST MAY X REQ PHY/QHP [id number] [id number] Diagnos is: ICD-10- CM 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.89 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 KISHAN Amador 03/28 [facility] OFFICE O/P EST LOW 20 MIN [id number] Diagnos is: ICD-10- CM M25.561 Pain in right knee JEAN WALDEN RD D 04/02 [facility] Out[facility] Encounter [id number] 04/03 [facility] Out[facility] Encounter [id number] 04/08 [facility] Out[facility] Encounter [id number] 04/17 [facility] OFFICE O/P EST LOW 20 MIN [id number] [id number] Diagnos is: ICD-10- CM M25.561 Pain in right knee JEAN WALDEN RD D 04/23 [facility] [place] TRIM NAIL(S) [id number] [id number] Diagnos is: ICD-10- CM I73.9 Periphe ral vascula r disease , unspeci fiMARCO ANTONIO Khan VIOLA R 05/07 [facility] [place] [place] [facility] Outpatient Encounter [id number] 05/25 [facility] [place] [facility] Social History Combined list of available smoking, tobacco, and other social history from Department of Defense and Veterans Affairs facilities. Social History Type Response Date Comment Source Tobacco smoking status [facility] VA-TOBACCO USE FORMER CIGARETTES 04/02/2025 [facility] [place] [facility] History [facility] tobacco use DE-TOBACCO NEVER USED OTHER TYPE 04/02/2025 [facility] [place] [facility] History of tobacco use VA-TOBACCO FORMER USER 04/23/2024 [facility] [place] [facility] History of tobacco use VA-TOBACCO FORMER USER 04/13/2023 [facility] [place] [facility] History of tobacco use DE-TOBACCO QUIT 5 TO < 15 YRS 04/14/2022 [facility] [place] [facility] History of tobacco use VA-TOBACCO FORMER USER 04/10/2021 [facility] [place] [facility] History of tobacco use DE-TOBACCO QUIT 5 TO < 15 YRS 04/02/2020 [facility] History of tobacco use VA-TOBACCO QUIT 15 YRS OR MORE 09/29/2018 [facility] [place] [facility] History of tobacco use QUIT TOBACCO USE 1-7 YEARS AGO 12/21/2017 5 or 6 years ago [facility] [place] [facility] History of tobacco use QUIT TOBACCO USE 1-7 YEARS AGO 05/19/2017 [facility] [place] [facility] History of tobacco use QUIT TOBACCO USE 1-7 YEARS AGO 08/19/2016 [facility] [place] [facility] History of tobacco use QUIT TOBACCO USE 1-7 YEARS AGO 02/12/2016 [facility] [place] [facility] History of tobacco use QUIT TOBACCO USE IN PAST YEAR 08/08/2015 pt states he stooped smmoking in the past yr. [facility] [place] [facility] History of tobacco use NEVER USED TOBACCO or not in last 7yrs 10/09/2014 [facility] History of tobacco use V16 TOBACCO MEDS OFFERED 12/26/2013 [facility] History of tobacco use V16 TOBACCO CESSATION <12 MONTHS 12/26/2013 quit 4 weeks ago [facility] History of tobacco use V16 LIFETIME NON-TOBACCO USER 06/20/2012 [facility] History of tobacco use V16 TOBACCO CESSATION > 12 MONTHS 10/23/2010 [facility] History of tobacco use V16 TOBACCO CESSATION > 12 MONTHS 10/16/2009 [facility] History of tobacco use V16 TOBACCO CESSATION > 12 MONTHS 08/30/2008 [facility] History of tobacco use QUIT TOBACCO USE IN LAST YEAR 11/16/2007 does not remember exact date but believes it was October 2006 [facility] History of tobacco use QUIT TOBACCO USE IN LAST YEAR 02/03/2007 [facility] History of tobacco use CURRENT SMOKER 08/23/2006 [facility] [place] History of tobacco use TOBACCO COUNSELING 3 07/28/2005 [place] [facility] History of tobacco use TOBACCO COUNSELING 2 04/15/2005 [place] [facility] History of tobacco use TOBACCO COUNSELING 1 03/25/2005 [place] [facility] History of tobacco use TOBACCO COUNSELING 2 08/14/2004 [place] [facility] History of tobacco use TOBACCO COUNSELING 1 04/03/2004 [place] [facility] History of tobacco use TOBACCO COUNSELING 3 11/12/2003 [place] [facility] History of tobacco use TOBACCO COUNSELING 2 09/12/2003 [place] [facility] History of tobacco use TOBACCO CESSATION: <1 YEAR 06/24/2003 STATES HE QUIT SMOKING 05/26 [facility] Plan of Care List of future care activities from [facility] facilities. Additional future care activities may be listed in the Assessment and Plan section. Date/Time Care Activity Care Activity Detail Facili ty 06/14/2025 AMBULATORY - NONE AMBULATORY - NONE [facility] [place] [facility] Advance Directives List of completed, amended, or rescinded Advance Directives on record at [facility] of [facility] facilities. An actual copy of the Directive is not included. Date Advance Directive Provider Source 06/20/2012 [employer]VANCE DIRECTIVE DISCUSSION MONIKA IZAGUIRRE [facility]
[2025-05-25 13:52] VITALS: BP 104/58; PULSE 98; RESP 18; TEMP 36.4; O2SAT 96; BMI 29.3
--- NOTE | 2025-05-25 13:53 | ED.UPPEXIN ---
HPI - Extremity Injury (Upper) General Chief Complaint: Wound/Laceration Stated Complaint: stitches bleeding again Time Seen by Provider: 05/25/25 15:55 History of Present Illness ED Provider: Suyapa LARSON narrative: The patient is a 79-year-old man who was on apixaban because of atrial fibrillation. Yesterday he sustained a laceration to his left pinky finger. He came to the emergency room early this morning and had the wound sutured. He was discharged from the emergency room at about 04:30 this morning. He returns to the emergency room this afternoon because he has had bleeding from the wound. He says the bleeding has not been heavy but it has been very persistent and he thought he ought to come and get it checked. Related Data Home Medications ?Medication ?Instructions ?Recorded ?Confirmed allopurinol 300 mg tablet 300 mg PO DAILY 11/20/24 apixaban 5 mg tablet (Eliquis) 5 mg PO BID 11/20/24 cilostazol 50 mg tablet 50 mg PO BID 11/20/24 clopidogrel 75 mg tablet 75 mg PO DAILY 11/20/24 metoprolol succinate 50 mg 50 mg PO DAILY 11/20/24 tablet,extended release 24 hr [id number]-[id number] 200 mcg-vit K 100 cap PO 11/20/24 mcg-lycop 500 [id number]-C23 capsule (Daily Multivitamin) tamsulosin 0.4 mg capsule 0.4 mg PO DAILY 11/20/24 Allergies Allergy/AdvReac Type Severity Reaction Status Date / Time No Known Allergies (No Known Allergy Verified 05/25/25 13:55 Allergies*) Review of Systems Review of Systems: Yes all other systems are reviewed and are negative [facility] Social History Social History Smoked in Last 30 Days: No Use of substances other than those prescribed or required for medical reasons: No Advance Directives: No Advance Directives Information Provided: No Do you have a plan to hurt others: No Plan Physical Exam Vital Signs: Vital Signs: Last Vital Signs Temp 98.4 F 05/25/25 19:16 Pulse 76 05/25/25 19:16 Resp 16 05/25/25 19:16 BP 104/60 05/25/25 19:16 Pulse Ox 98 05/25/25 19:16 O2 Del Method Room Air 05/25/25 19:16 BMI result Body Mass Index 29.3 Const: Other: The patient is a 79-year-old man who was awake and alert and does not appear in acute distress. HEENT: Other: The face is symmetrical. ?Mucous membranes moist. Eyes: Other: Pupils are round equal, conjunctivae are clear, extraocular movements intact Neck: Neck: Yes normal visual inspection, Yes full ROM and Yes no JVD Resp: Effort & Inspection: normal respiratory effort Auscultation: clear to auscultation bilaterally Cardio: Other: The patient has a normal rate but an irregular rhythm Skin: Other: The patient has stitches in the pad of his left pinky finger. There was some slight oozing blood from the well approximated wound. Neuro: Other: The patient is awake and alert with a normal mental status. He has normal function of the finger. Extrem: Other: No deformity to the finger. Course Course Course Narrative: This is a Rapid Medical Exam performed in triage by Aarti Frank PA-C. Full HPI, ROS and PE to be performed by primary ED provider. 79-year-old male presenting to the ED c/o laceration / stitches bleeding since ED discharge. Patient was evaluated in our ED last night/early this morning had 7 stitches placed to left finger. Admits currently is taking anticoagulation PE: Active bleeding noted to wound site. Plan: Wound dressed. Patient told to apply direct pressure while in waiting room. Medical Decision Making Medical Decision Making MDM Narrative: The patient is here for some oozing from a sutured laceration on the left pinky finger. The patient is on apixaban and I believe he is also on clopidogrel. I suspect this is why he is having this problem. The wound looks well sutured and the wound edges are well approximated. I applied a finger tourniquet to the finger proximal to the sutures and had the patient hold his arm above his head for proximally 15 minutes. I then took down the finger tourniquet and applied a wound dressing with Surgicel over the sutured area covered by gauze and a gauze wrap. The patient did not seem to bleed through the dressing. The patient will be discharged with instructions to skip a dose of apixaban tonight. He seems very anxious about skipping any additional doses. He may resume his apixaban in the morning. Given the bleeding problems and given that he is on apixaban and clopidogrel I have some concern about the patient changing the dressing on his finger. He will therefore return to the emergency room in 2 days on Tuesday for a wound check and dressing change. Discharge Plan Discharge Clinical Impression: Bleeding from wound, Chronic anticoagulation, Chronic atrial fibrillation Patient Disposition: Home, Self-Care Additional Instructions: Please do your best to keep the hand elevated. You may use the sling to help you keep the hand elevated. The more you were able to keep the hand elevated the less likely you are to have bleeding from the wound. I think holding a dose of your anticoagulant medication, Eliquis (apixaban) this evening is reasonable. You may resume it tomorrow. I think it would be reasonable for you to returned to the emergency room on Tuesday for a dressing change and wound check. Also please, on Tuesday, contact your regular doctor's office to arrange an appointment for suture removal. Return to the emergency room if significantly worse. Prescriptions: No Action tamsulosin 0.4 mg capsule 0.4 mg PO DAILY allopurinol 300 mg tablet 300 mg PO DAILY Eliquis 5 mg tablet 5 mg PO BID cilostazol 50 mg tablet 50 mg PO BID clopidogrel 75 mg tablet 75 mg PO DAILY metoprolol succinate 50 mg tablet extended release 24 hr 50 mg PO DAILY Daily Multivitamin 200-100-500 mcg capsule PO Referrals: Aaron Solis MD [Primary Care Provider, Internal Medicine] Interventions: ED Discharge Assessment Last Done: 05/25/25 19:16 Discharge Date/Time: 05/25/25 19:17 Print Language: Frisian
--- OUTSIDE RECORDS SUMMARY | 2025-05-25 15:21 | XMS_ITS | Encounter Summary ---
Author Organization [facility] Address [address] [place] [address] Phone Care Team Providers Care Decorative Greens Cutter Name Role Phone Aaron Solis MD Unavailable [phone] Nestor Vang MD Unavailable [phone] Stephan Zhou MD Unavailable [phone] Aaron Solis MD Primary Care Provider + Encounter Details Date Type Department Care Team (Latest Contact Info) Description 03/22/2018 Ancillary [facility] [address] [place] [address] [place] [address] German Alvarez MD [address] [place] [id number] [email or web address] Chest pain, unspecified type Social [...] type documented in this encounter Care Teams Decorative Greens Cutter Relationship Specialty Start Date End Date Aaron Solis MD [address] [place] [address] PCP - General 07/28/17 Aaron Solis MD [address] [place] [address] Historical LMR Provider 05/14/17 2 Nestor Vang MD [address] [place] [address] [email or web address] Historical LMR Provider 05/14/17 08/01/21 Stephan Zhou MD [address] [place] [address] Historical LMR Provider 05/14/17 2 documented as of this encounter Additional Source Comments The information contained in this document represents components of the legal health record. It is not the complete legal health record.[facility]
--- OUTSIDE RECORDS SUMMARY | 2025-05-25 15:21 | XMS_ITS | Encounter Summary ---
Author Organization [facility] Address [address] [place] [address] Phone Care Team Providers Care Refrigeration System Installer Name Role Phone Aaron Solis MD Unavailable Nestor Vang MD Unavailable [phone] Stephan Zhou MD Unavailable [phone] Aaron Solis MD Primary Care Provider + Encounter Details Date Type Department Care Team (Latest Contact Info) Description 03/22/2018 Ancillary Orders [facility] [address] [place] [address] German Alvarez MD [address] [place] [id number] [email or web address] Chest pain, unspecified type Social [...] type documented in this encounter Care Teams Refrigeration System Installer Relationship Specialty Start Date End Date Aaron Solis MD [address] [address] PCP - General 07/28/17 Aaron Solis MD [address] [place] [address] Historical LMR Provider 05/14/17 2 Nestor Vang MD [address] [place] [address] [email or web address] Historical LMR Provider 05/14/17 08/01/21 Stephan Zhou MD [address] [address] Historical LMR Provider 05/14/17 2 documented as of this encounter Additional Source Comments The information contained in this document represents components of the legal health record. It is not the complete legal health record.[facility]
--- OUTSIDE RECORDS SUMMARY | 2025-05-25 15:21 | XMS_ITS | Clinical Summary ---
Author Organization [facility] Address [address] [place] [address] Phone Care Team Providers Care Sander Operator Name Role Phone Aaron Solis MD Primary [...] Payer (Ef fective 2013-Present) Name:Zi Caruso Member ID:[id number] Relation to Subscriber:Self Name:Zi Caruso Subscriber ID:[id number] Payer ID:[id number] Group ID:Not on file Type:Medicare Address: [employer] [address] GENERIC COMMERCIAL MEDICARE PART A & B GENERIC COMMERCIAL MEDICARE PART A & B GENERIC COMMERCIAL MEDICARE PART A & B GENERIC COMMERCIAL MEDICARE PART A & B GENERIC COMMERCIAL MEDICARE PART A & B GENERIC COMMERCIAL MEDICARE PART A & B GENERIC COMMERCIAL MEDICARE PART A & B GENERIC COMMERCIAL MEDICARE PART A & B GENERIC COMMERCIAL Care Teams Sander Operator Relationship Specialty Start Date End Date Aaron Solis MD PCP - General 07/28/17 Additional Source Comments The information contained in this document represents components of the legal health record. It is not the complete legal health record.[facility]
--- OUTSIDE RECORDS SUMMARY | 2025-05-25 15:21 | XMS_ITS | Encounter Summary ---
Author Organization [facility] Address [address] [place] [address] Phone Care Team Providers Care Rangeland Management Specialist Name Role Phone Aaron Solis MD Unavailable [phone] Nestor Vang MD Unavailable [phone] Stephan Zhou MD Unavailable [phone] Aaron Solis MD Primary Care Provider + Encounter Details Date Type Department Care Team (Late st Contact Info) Description 03/22/2018 Ancillary Orders [facility] [address], [address] [place] [address] German Alvarez MD [address] [place] [address] Social History Tobacco Use Types Packs/Day Years [...] on filedocumented in this encounter Care Teams Rangeland Management Specialist Relationship Specialty Start Date End Date Aaron Solis MD [address] [place] [address] PCP - General 07/28/17 Aaron Solis MD [address] [place] [address] Historical LMR Provider 05/14/17 2 Nestor Vang MD [address] [place] [address] [email or web address] Historical LMR Provider 05/14/17 08/01/21 Stephan Zhou MD [address] [address] Historical LMR Provider 05/14/17 2 documented as of this encounter Additional Source Comments The information contained in this document represents components of the legal health record. It is not the complete legal health record.[facility]
--- OUTSIDE RECORDS SUMMARY | 2025-05-25 15:21 | XMS_ITS | Encounter Summary ---
Author Organization [facility] Address [address] [facility] [address] [place] [address] Phone Care Team Providers Care Cyanide Case Hardener Name Role Phone Aaron Solis MD Unavailable [phone] Nestor Vang MD Unavailable [phone] Stephan Zhou MD Unavailable [phone] Aaron Solis MD Primary Care Provider + Encounter Details Date Type Department Care Team (Late st Contact Info) Description 03/22/2018 Ancillary Orders [facility] [address], [address] [place] [address] German Alvarez MD [address] [place] [address] Social History Tobacco Use Types Packs/Day Years [...] on filedocumented in this encounter Care Teams Cyanide Case Hardener Relationship Specialty Start Date End Date Aaron Solis MD [address] [place] [address] PCP - General 07/28/17 Aaron Solis MD [address] [place] [address] Historical LMR Provider 05/14/17 2 Nestor Vang MD [address] [place] [address] [email or web address] Historical LMR Provider 05/14/17 08/01/21 Stephan Zhou MD [address] [address] Historical LMR Provider 05/14/17 2 documented as of this encounter Additional Source Comments The information contained in this document represents components of the legal health record. It is not the complete legal health record.[facility]
[2025-05-25 17:33] VITALS: BP 104/60; PULSE 76; RESP 16; TEMP 36.9; O2SAT 98
[2025-05-25 19:16] VITALS: BP 104/60; PULSE 76; RESP 16; TEMP 36.9; O2SAT 98
== END 2025-05-25 19:17 | disposition home or self-care (01) ==
PROVIDERS: Emergency Provider Emergency Medicine; PCP Internal Medicine
DX: L76.22 Postprocedural hemorrhage of skin and subcutaneous tissue following other procedure (principal); I48.91 Unspecified atrial fibrillation; Z79.899 Other long term (current) drug therapy; Z79.01 Long term (current) use of anticoagulants
CPT/HCPCS: 99283; 99284

== ENCOUNTER 2025-05-27 08:28 | Emergency (ER) | payer OTHER, SELFPAY ==
--- OUTSIDE RECORDS SUMMARY | 2024-10-16 05:00 | XMS_ITS | Encounter Summary ---
Author Name [facility] [place] Organization [facility] [place] Address [address] [place] [address] Care Team Providers Care Residential Collections Name Role Phone AARON WALDEN Primary Care [...] PART B Apr 24, 2013 PART B [id number] KLEBER DYE RY PATIENT MEDICARE (WNR) MEDICARE () PART B Apr 24, 2013 PART B [id number] [facility]8 KLEBER DYE RY PATIENT MEDICARE (WNR) MEDICARE () PART B Apr 24, 2013 PART B [id number] KLEBER DYE RY PATIENT MEDICARE (WNR) MEDICARE () PART A November 23, 2011 PART A [id number] KLEBER DYE RY PATIENT MEDICARE (WNR) MEDICARE () PART A November 23, 2011 PART A [id number] KLEBER DYE RY PATIENT MEDICARE (WNR) MEDICARE () PART A November 23, 2011 PART A [id number] KLEBER DYE PATIENT [employer] [place] [employer] PLAN G PLAN G Apr 24, 2013 PLAN G [id number] KLEBER DYE PATIENT [employer] [place] [employer] PL[employer] G Apr 24, 2013 PLANG [id number] KLEBER DYE PATIENT [employer] [place] [employer] PL[employer] G PLANG Apr 24, 2013 PLANG [id number] KLEBER DYE PATIENT Selected Encounter This section includes the information on record at [place] for the Encounter. Date/Time Encounter Type Encounter Description Reason Provider Source Oct 16, 2024 10:00 AM OFFICE O/P EST LOW 20 MIN PRIMARY CARE/MEDICINE ICD-10-CM I10 Essential (primary) hypertension AARON WALDEN [facility] Encounter Template Text not used by AR Assessments - Encounter Diagnoses This section includes the primary and secondary diagnoses documented for the Encounter. Date/Time Primary/Secondary Diagnosis Diagnosis Name Provider Source Nov 08, 2024 03:26 PM PRIMARY Essential (primary) hypertension AARON WALDEN [facility] [place] [facility] Nov 08, 2024 03:26 PM SECONDARY Hematuria, unspecified AARON WALDEN [facility] [place] [facility] Plan of Treatment: Future Appointments (+ 6 months) and Future Tests (+/- 45 days) The Plan of Treatment section includes future care activities for the patient from all AR treatmentfacilities. This section includes future appointments and future orders which are active, pending or scheduled. Future Appointments This section includes appointments that were scheduled to occur 6 months from the date of the Encounter, up to a maximum of 20 appointments. The data comes from all AR treatment facilities. Appointment Date/Time Appointment Type Appointme nt Facility Name December 12, 2024 11:30 AM AMBULATORY - MEDICINE [facility] [place] [facility] Dec 25, 2024 01:00 PM AMBULATORY - MEDICINE [facility] [place] [facility] Jan 01, 2025 09:00 AM AMBULATORY - MEDICINE [facility] [place] [facility] Apr 16, 2025 10:30 AM AMBULATORY - MEDICINE [facility] [place] [facility] Lab Results: +/- 30 days of the encounter This section includes the Chemistry and Hematology Lab Results on record with AR for the patient. Radiology Reports and Pathology Reports are provided separately, in subsequent sections. Lab Results This section contains the Chemistry/Hematology Results that were resulted 30 days before or 30 daysafter the date of the Encounter. Date/Time Source Result Type Result - Unit Interpretation Reference Range Specimen Type Comment Oct 16, 2024 10:36 AM [facility] URINALYSIS CLEAN CATCH URINE Specimen Type: URINE Comment: If Glucose = >500 and Ketones are positive, please alert the Physician. Ordering Provider: AARON WALDEN Report Released Date/Time: Oct 16, 2024 10:21 AM Reporting Lab: [address] [phone] Performing Lab: [address] [address] UA COLOR Yellow Yellow UA APPEARANCE Clear Clear UA GLUCOSE Normal mg/dL Negative UA KETONES NEGATIVE mg/dL Negative UA BLOOD NEGATIVE mg/dL Negative UA PROTEIN NEGATIVE mg/dL Negative UA NITRITE NEGATIVE mg/dL Negative UA BILIRUBIN NEGATIVE mg/dL Negative UA SPECIFIC GRAVITY 1.019 1.016-1.022 UA pH 6.0 5.0-9.0 UA UROBILINOGEN Normal mg/dL <2.0 UA LEUKOCYTE NEGATIVE Negative Oct 04, 2024 12:21 PM [facility] LIVER FUNCTION SERUM Specimen Type: SERUM No comment entered. Ordering Provider: AARON WALDEN Report Released Date/Time: Oct 04, 2024 12:06 PM Reporting Lab: [address] [address] Performing Lab: [address] [address] PROTEIN,TOTAL 6.4 g/dL 6.0-8.3 ALBUMIN 3.5 g/dL 3.5-5.0 ALKALINE PHOSPHATASE 66 U/L 40-150 AST 13 U/L 5-34 ALT 15 U/L BILIRUBIN, TOTAL 0.7 mg/dL 0.2-1.2 Oct 04, 2024 12:21 PM [facility] BASIC METABOLIC PANEL (fasting) SERUM Specime n Type: SERUM No comment entered. Ordering Provider: AARON WALDEN Report Released Date/Time: Oct 04, 2024 12:06 PM Reporting Lab: [facility] [address] [address] Performing Lab: [facility] [address] [address] UREA NITROGEN 17 mg/dL 7-25 GLUCOSE 101 mg/dL H 65-100 SODIUM 139 mmol/L 135-145 POTASSIUM 4.5 mmol/L 3.5-5.0 CHLORIDE 108 mmol/L 100-110 CO2 23 meq/L 20-30 CALCIUM 8.8 mg/dL 8.5-10.2 CREATININE, Serum 1.11 mg/dL 0.50-1.40 eGFR(CKD-EPI 2020) 68 mL/min >60 Oct 04, 2024 12:21 PM [facility] TSH SERUM Specimen Type: SERUM No comment entered. Ordering Provider: AARON WALDEN Report Released Date/Time: Oct 04, 2024 12:06 PM Reporting Lab: [facility] [address] [address] Performing Lab: [facility] [address] [address] TSH 2.11 u[IU]/mL 0.35-5.00 Oct 04, 2024 12:21 PM [facility] LIPID PANEL FASTING SERUM Specimen Type: SERU M No comment entered. Ordering Provider: AARON WALDEN Report Released Date/Time: Oct 04, 2024 12:06 PM Reporting Lab: [facility] [address] [address] Performing Lab: [facility] [address] [address] CHOLESTEROL 88 mg/dL TRIGLYCERIDE 84 mg/dL 0-150 LDL calculated 41 mg/dL 0-129 CHOL/HDL 2.9 HDL CHOLESTEROL 30 mg/dL L 40-60 Oct 04, 2024 12:21 PM [facility] URIC ACID SERUM Specimen Type: SERUM No comment entered. Ordering Provider: AARON WALDEN Report Released Date/Time: Oct 04, 2024 12:06 PM Reporting Lab: [facility] [address] [address] Performing Lab: [address] [address] URIC ACID 3.1 mg/dL L 3.5-7.2 Oct 04, 2024 12:21 PM [facility] MICROSCOPIC AUTOMATED, URINE URINE Specimen T ype: URINE Comment: If Glucose = >500 and Ketones are positive, please alert the Physician. Ordering Provider: AARON WALDEN Report Released Date/Time: Oct 04, 2024 12:06 PM Reporting Lab: [address] [address] Performing Lab: [address] [address] UA WBC 0-5 /[HPF] 0-5 UA MUCUS FEW /[LPF] Trace UA HYALINE CASTS 5-9 /[LPF] H 0-2 UA RBC 6-10 /[HPF] H 0-3 Oct 04, 2024 12:21 PM [facility] CBC AND DIFF (AUTO) BLOOD Specimen Type: BLOO D No comment entered. Ordering Provider: AARON WALDEN Report Released Date/Time: Oct 04, 2024 12:06 PM Reporting Lab: [address] [address] Performing Lab: [address] [address] WBC 6.37 10*3/uL 4.50-11.00 RBC 3.82 10*6/uL [...] 10*3/uL 0.00-0.00 Oct 04, 2024 12:21 PM [facility] [employer] [facility] URINALYSIS CLEAN CATCH URINE Specimen Type: U RINE Comment: If Glucose = >500 and Ketones are positive, please alert the Physician. Ordering Provider: AARON WALDEN Report Released Date/Time: Oct 04, 2024 12:06 PM Reporting Lab: [facility] [address] [address] Performing Lab: [address] [address] UA COLOR Yellow Yellow UA APPEARANCE Clear Clear UA GLUCOSE Normal mg/dL Negative UA KETONES NEGATIVE mg/dL Negative UA BLOOD SMALL mg/dL Negative UA PROTEIN NEGATIVE mg/dL Negative UA NITRITE NEGATIVE mg/dL Negative UA BILIRUBIN NEGATIVE mg/dL Negative UA SPECIFIC GRAVITY 1.017 1.016-1.022 UA pH 5.5 5.0-9.0 UA UROBILINOGEN Normal mg/dL <2.0 UA LEUKOCYTE NEGATIVE Negative Vital Signs: All taken on the encounter date This section contains inpatient and outpatient Vital Signs collected on the date of the Encounter. Date/Time Temperature Pulse Blood Pressure Respiratory Rate SP02 Pain Height Weight Body Mass Index Source Oct 16, 2024 09:51 AM 98 95 122/62 16 97 0 70.5 206.5 29 [place] [employer] [facility] [place] [facility] Social History: Smoking Status (Most current) and Tobacco Use (All prior to encounter date) This section includes the most current, and the historical, smoking and tobacco- related health factors from the AR facility where the Encounter took place. Current Smoking Status This section includes the most current smoking, or tobacco-related health factor, from the AR facility where the Encounter took place. Date/Time Current Smoking Status Comment [facility] Apr 23, 2024 10:00 AM VA-TOBACCO FORMER USER [facility] [place] [facility] Tobacco Use History This section includes a history of the smoking, or tobacco-related health factors, that were collected on or before the date of the Encounter. The data comes from the AR facility where the Encounter took place. Date/Time Smoking Status/Tobac co Use Comment Facility Apr 23, 2024 10:00 AM VA-TOBACCO QUIT 5 TO < 15 YRS [facility] [place] [facility] Apr 13, 2023 11:00 AM VA-TOBACCO FORMER USER [facility] [place] [facility] Apr 13, 2023 11:00 AM VA-TOBACCO QUIT 5 TO < 15 YRS [facility] [place] [facility] Apr 14, 2022 01:30 PM VA-TOBACCO FORMER USER [facility] [place] [facility] Apr 14, 2022 01:30 PM VA-TOBACCO QUIT 5 TO < 15 YRS [facility] [place] [facility] Apr 10, 2021 10:00 AM VA-TOBACCO FORMER USER [facility] [place] [facility] Apr 10, 2021 10:00 AM VA-TOBACCO QUIT 5 TO < 15 YRS [facility] [place] [facility] Apr 02, 2020 10:30 AM VA-TOBACCO FORMER USER [facility] [place] [facility] Apr 02, 2020 10:30 AM VA-TOBACCO QUIT 5 TO < 15 YRS [facility] [place] [facility] Sep 29, 2018 08:52 AM VA-TOBACCO FORMER USER [facility] [place] [facility] Sep 29, 2018 08:52 AM VA-TOBACCO QUIT 15 YRS OR MORE [facility] [place] [facility] December 21, 2017 12:27 PM QUIT TOBACCO USE 1-7 YEARS AGO 5 or 6 years ago [facility] May 19, 2017 10:21 AM QUIT TOBACCO USE 1-7 YEARS AGO [facility] Aug 19, 2016 09:56 AM QUIT TOBACCO USE 1-7 YEARS AGO [facility] Feb 12, 2016 11:34 AM QUIT TOBACCO USE 1-7 YEARS AGO [facility] Aug 08, 2015 03:04 PM QUIT TOBACCO USE 1-7 YEARS AGO [facility] Aug 08, 2015 03:04 PM QUIT TOBACCO USE IN PAST YEAR pt states he stooped smmoking in the past yr. [facility] Advance Directives: All historical and current Section Date Range: From patient's date of to the date document was created. This section includes ALL of a patient's completed or amended [place] Advance and Rescinded Directives. The entries below indicate that a directive exists for the patient, but an actual copy is not included with this document. The data comes from all AR facilities. Date Advance Directives Provider Source Jun 20, 2012 ADVANCE DIRECTIVE DISCUSSION MONIKA IZAGUIRRE [facility] Pathology Reports: +/- 30 days of the [...] the Encounter. The data comes from all AR treatment facilities. Date/Time Pathology Report Provider Source Oct 16, 2024 10:36 AM LR MICROBIOLOGY RE PORT: Reporting Lab: [facility] [CLIA# [id number]] [address] [place] [id number] Accession [UID]: [id number] [[id number]] Received: Oct 16, 2024@10:36 Collection sample: URINE CLEAN CATCH Collection date: Oct 16, 2024 10:36 Site/Specimen: URINE Provider: AARON WALDEN Test(s) ordered: URINE CULTURE([id number]).......... completed: Oct 19, 2024 09:18 * BACTERIOLOGY FINAL REPORT => Oct 19, 2024 09:18 TECH CODE: [id number] Bacteriology Remark(s): Culture in progress NO GROWTH IN 24 HOURS, FINAL REPORT TO FOLLOW. FINAL AEROBIC REPORT: NO GROWTH =--=--=--=--=--=--=--=--= --=--=--=--=--=--=--=--=- -=--=--=--=--=--=--=--=-- =-- Performing Laboratory: Bacteriology Report Performed By: [facility] [CLIA# [id number]] [address] [place] [id number] [facility] GAO [facility] Encounter Notes: All associated encounter notes This section contains the clinical notes associated to the Encounter. Date/Time Encounter Note(s) Provider Source Oct 16, 2024 10:25 AM PHYSICIAN NOTE: LOCAL TITLE: MD NOTE STANDARD TITLE: PHYSICIAN NOTE DATE OF NOTE: OCT 16, 2024@10:25 ENTRY DATE: OCT 16, 2024@10:25:24 AUTHOR: AARON WALDEN EXP COSIGNER: URGENCY: STATUS: COMPLETED Patient Name: SANCHO DYE VITALS: Patient temperature: 98 F [36.7 C] (10/16/2024 09:51) Blood pressure: 122/62 (10/16/2024 09:51) Patient height: 70.5 in [179.1 cm] (10/16/2024 09:51) Patient weight: 206.5 lb [93.67 kg] (10/16/2024 09:51) Patient BMI: BMI: 29.3 Patient pulse: 95 (10/16/2024 09:51) Patient respiration: 16 (10/16/2024 09:51) Patient Pulse Oximetry: 97% (10/16/2024 09:51) Pain Ratin (10/16/2024 09:51) Active VA Medications: Active Outpatient Medications (including Supplies): Active Outpatient Medications Status 1) ALLOPURINOL 300MG TAB TAKE ONE TABLET BY MOUTH EVERY DAY FOR ACTIVE GOUT 2) AMMONIUM LACTATE 12% LOTION APPLY SMALL AMOUNT TOPICALLY ACTIVE ONCE DAILY FOR DRY IRRITATED SKIN Indication: FOR DRY SKIN 3) APIXABAN 5MG TAB TAKE ONE TABLET BY MOUTH TWICE DAILY ACTIVE 4) ATORVASTATIN CALCIUM 40MG TAB TAKE ONE TABLET BY MOUTH AT ACTIVE BEDTIME FOR CHOLESTEROL 5) CILOSTAZOL 50MG TAB TAKE ONE TABLET BY MOUTH TWICE DAILY ACTIVE -TAKE 30 MINUTES BEFORE MEALS OR TWO HOURS AFTER MEALS 6) CLOPIDOGREL BISULFATE 75MG TAB TAKE ONE TABLET BY MOUTH ACTIVE EVERY DAY 7) FLUTICASONE PROP 50MCG 120D NASAL INHL INSTILL 1 SPRAY INTO ACTIVE EACH NOSTRIL TWICE DAILY NEEDED Indication: FOR NASAL IRRITATION/INFLAMMATION 8) LOSARTAN 100MG TAB TAKE ONE TABLET BY MOUTH ONCE DAILY FOR ACTIVE BLOOD PRESSURE/HEART 9) METOPROLOL SUCCINATE 100MG SA TAB TAKE ONE TABLET BY MOUTH ACTIVE ONCE DAILY FOR BLOOD PRESSURE/HEART 10) MULTIVITAMIN/MINERALS CAP/TAB TAKE 1 TABLET BY MOUTH EVERY ACTIVE DAY FOR VITAMIN SUPPLEMENTATION 11) PANTOPRAZOLE NA 20MG EC TAB TAKE ONE TABLET BY MOUTH EVERY ACTIVE DAY 12) TAMSULOSIN HCL 0.4MG CAP TAKE ONE CAPSULE BY MOUTH AT ACTIVE BEDTIME Indication: FOR ENLARGED PROSTATE Remote Medications: No Active 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 He feels well today with no complaints. He takes all medications regularly. Stays active Review of systems No chest pain or dyspnea No abdominal pain No trouble urinating No fever or chills No cough Physical examination Well-developed well-nourished male in no acute distress Coronary no murmur Lungs clear Carotid no bruit No peripheral edema WBC/HPF: 0-5 RBC/HPF: 6-10 H MUCUS: FEW HYALINE/CASTS/LPF: 5-9 H Color, Urine (AX 4280): Yellow Appearance, Urine (AX 4280): Clear Glucose, Urine (AX 4280): Normal Ketones, Urine (AX 4280): NEGATIVE Blood, Urine (AX 4280): SMALL Protein, Urine (AX 4280): NEGATIVE Nitrite, Urine (AX 4280): NEGATIVE Bilirubin, Urine (AX 4280): NEGATIVE Specific [place], (AX 4280): 1.017 pH, Urine ([id number]): 5.5 Urobilinogen, Urine (AX 4280): Normal Leukocyte Esterase, (AX 4280): NEGATIVE TSH (Access): 2.11 GLUCOSE: 101 H UREA NITROGEN: 17 SODIUM: 139 POTASSIUM: 4.5 CHLORIDE: 108 CO2: 23 CALCIUM: 8.8 URIC ACID: 3.1 L CHOLESTEROL: 88 PROTEIN,TOTAL: 6.4 ALBUMIN: 3.5 ALKALINE PHOSPHATASE: 66 SGOT: 13 SGPT: 15 TRIGLYCERIDE: 84 LDL CHOL: 41 CHOL/HDL RATIO: 2.9 HDL: 30 L BILIRUBIN,TOT.: 0.7 CREATININE-EGFR: 1.11 eGFR CKD-EPI 2020: 68 WBC: 6.37 RBC: 3.82 L HGB: 12.1 L HCT: 36.2 L MCV: 94.8 MCHC: 33.4 RDW: 13.2 PLT: 219 MCH: 31.7 Neut %: 61.8 Lymph %: 25.7 [place] %: 7.5 Eos %: 4.2 Baso %: 0.6 Neut, Abs: 3.93 Lymph, Abs: 1.64 [place], Abs: 0.48 Eos, Abs: 0.27 Baso, Abs: 0.04 Immature Granulocytes %: 0.2 Immature Granulocytes, Abs: 0.01 NRBC%: 0.0 NRBC#: 0.00 I discussed above test results with patient Assessment and plan: 1. Hypertension: Blood pressure satisfactory Plan continue present medications 2. Microscopic hematuria: No symptoms. There is a history of kidney stones. No cyst including infection or cancer Plan: Second urinalysis and culture today Colon cancer screening. Patient has no personal or family history of colon cancer or polyps. he is of average risk and over the age of 75. Does not meet AR criteria for colonoscopy. Follow-up 6 months clinic visit and lab Medication Reconciliation: Outpatient: Has the patient been taking medications as documented in the EMLR? YES: The patient has been taking medications as documented in the EMLR. Essential Medication List for Review used to complete this medication reconciliation. INCLUDED IN THIS LIST: Alphabetical list of active outpatient prescriptions dispensed from this VA (local) and dispensed from another VA or DoD facility (remote) as well as inpatient orders (local, pending and active), local clinic medications, locally documented non-VA medications, and local prescriptions that have or been discontinued in the past 90 days. - All changes in medications, including all non-VA/Herbal/OTC medications were entered into CPRS. - If there were any medications the patient should no longer take, they were discontinued. - The patient/caregiver was instructed to update this list, discard old lists, and take this list to the next appointment, whether with a VA or non-VA provider. Follow Up Colonoscopy: Colonoscopy is due based on information available to this reminder. Colorectal cancer screening/surveillance will be stopped. Reason: age /es/ Aaron Walden MD Staff Physician Signed: 10/16/2024 10:29 AARON WALDEN [facility] [place] [facility] Oct 16, 2024 09:55 AM PREVENTIVE MEDICINE NURSING NOTE: LOCAL TITLE: CLINICAL REMINDERS/NURSING STANDARD TITLE: PREVENTIVE MEDICINE NURSING NOTE DATE OF NOTE: OCT 16, 2024@09:55 ENTRY DATE: OCT 16, 2024@09:55:37 AUTHOR: OSMANY PALOMINO COSIGNER: URGENCY: STATUS: COMPLETED Sexual Orientation: The patient thinks of their sexual orientation as: Straight or Heterosexual Homelessness/Food Insecurity Screen: In the past 2 months, have you been living in stable housing that you own, rent, or stay in as part of a household? Yes - Living in stable housing. Are you worried or concerned that in the next 2 months you may NOT have stable housing that you own, rent, or stay in as part of a household? No - Not worried about housing near future The reports the following: Within the past 12 months, you worried whether your food would run out before you got money to buy more. Never true Within the past 12 months, the food you bought just didn't last and you didn't have money to get more. Never true Advance Directive Screen MH AD: Patient has an up-to-date Advance Directive at an outside, non-va facility and was asked to forward a copy to his/her clinician. Comment: was given the paperwork to return upon completion RHS Screen: RHS Screen Session Format: Face to Face Environmental Check Upon inquiry, the individual reports that the environment is safe to proceed. Informed Consent to Screen and Document The individual consents to proceed with screening. The individual consents to documentation of responses. PRIMARY SCREEN: In the past 12 months, how often did a current or former intimate partner (e.g., boyfriend, girlfriend, , , sexual partner): 1. Scream or curse at you Never 2. Insult or talk down to you Never 3. Threaten you with harm Never 4. Physically hurt you Never 5. Force or pressure you to have sexual contact against your will, or when you were unable to say no Never The HITS tool (items 1-4 above) is US copyright protected by Theodore Knight MD, and the user has full rights to use it throughout the AR system. PRIMARY SCREEN RESULT: The Primary Screen is NEGATIVE. The individual answered never to all forms of IPV above (i.e., answered never to all 5 items) The individual accepts education and/or resources: Other: N/A EDUCATION: Other: N/a /glenis/ OSMANY PALOMINO LPN LPN Signed: 10/16/2024 09:59 OSMANY PALOMINO [facility]
--- OUTSIDE RECORDS SUMMARY | 2025-03-19 04:00 | XMS_ITS | Encounter Summary ---
Author Name [facility] [place] Organization [facility] [place] [place] Address [address] [place] [address] Care Team Providers Care Marketing Operations Associate Name Role Phone AARON WALDEN Primary Care [...] PART B Apr 24, 2013 PART B [id number] [phone] KLEBER DYE RY PATIENT MEDICARE (WNR) MEDICARE () PART B Apr 24, 2013 PART B [id number] [facility] [phone] KLEBER DYE RY PATIENT MEDICARE (WNR) MEDICARE () PART B Apr 24, 2013 PART B [id number] [facility] [phone] KLEBER DYE RY PATIENT MEDICARE (WNR) MEDICARE () PART A November 23, 2011 PART A [id number] [phone] KLEBER DYE RY PATIENT MEDICARE (WNR) MEDICARE () PART A November 23, 2011 PART A [id number] KLEBER DYE RY PATIENT MEDICARE (WNR) MEDICARE () PART A November 23, 2011 PART A [id number] KLEBER DYE PATIENT [employer] PLAN G PLAN G Apr 24, 2013 PLAN G [id number] KLEBER DYE RY PATIENT [employer] PL[employer] G PLANG Apr 24, 2013 PLANG [id number] KLEBER DYE PATIENT [employer] PL[employer] G Apr 24, 2013 PLANG [id number] KLEBER DYE PATIENT Selected Encounter This section includes the information on record at [place] for the Encounter. Date/Time Encounter Type Encounter Description Reason Provider Source Mar 19, 2025 09:00 AM OFFICE O/P EST LOW 20 MIN PRIMARY CARE/MEDICINE ICD-10-CM J37.0 Chronic laryngitis AARON WALDEN Greta Encounter Template Text not used by [place] Assessments - Encounter Diagnoses This section includes the primary and secondary diagnoses documented for the Encounter. Date/Time Primary/Secondary Diagnosis Diagnosis Name Provider Source May 25, 2025 08:15 PM PRIMARY Chronic laryngitis SHILPI ADAME [place] [facility] [place] [facility] May 25, 2025 08:15 PM SECONDARY Encounter for immunization SHILPI ADAME [facility] CNT [facility] [place] [facility] Plan of Treatment: Future Appointments (+ 6 months) and Future Tests (+/- 45 days) The Plan of Treatment section includes future care activities for the patient from all [place] treatmentfacilities. This section includes future appointments and future orders which are active, pending or scheduled. Future Appointments This section includes appointments that were scheduled to occur 6 months from the date of the Encounter, up to a maximum of 20 appointments. The data comes from all [place] treatment facilities. Appointment Date/Time Appointment Type Appointme nt Facility Name Mar 27, 2025 01:30 PM AMBULATORY - MEDICINE [place] [facility] [place] [facility] Mar 28, 2025 10:30 AM AMBULATORY - MEDICINE [place] [facility] [place] [facility] Apr 02, 2025 02:00 PM AMBULATORY - MEDICINE [place] [facility] [place] [facility] Apr 15, 2025 10:30 AM AMBULATORY - NONE [facility] [place] [facility] Apr 23, 2025 10:00 AM AMBULATORY - MEDICINE [place] [facility] [place] [facility] May 07, 2025 11:30 AM AMBULATORY - MEDICINE [place] [facility] [place] [facility] Jun 14, 2025 10:00 AM AMBULATORY - NONE [facility] [place] [facility] Jul 05, 2025 11:00 AM AMBULATORY - MEDICINE [place] [facility] [place] [facility] Jul 05, 2025 01:00 PM AMBULATORY - MEDICINE [place] [facility] [place] [facility] Jul 16, 2025 10:30 AM [facility] Active, Pending, and Scheduled Orders This section includes a listing of several types of active, pending, and scheduled orders, including clinic medications orders, diagnostic test orders, procedure orders and consult orders; where the start date of the order is 45 days before the date of the Encounter or 45 days after the date of theEncounter. The data comes from all [place] treatment facilities. Test Date/Time Test Type Test Details Facility Name Apr 13, 2025 12:00 AM Laboratory - Chemistry Order LIPID PANEL FASTING BLOOD (SST-SERUM) [facility] [place] [facility] Apr 13, 2025 12:00 AM Laboratory - Chemistry Order LIVER FUNCTION BLOOD (SST-SERUM) [facility] [place] [facility] Apr 13, 2025 12:00 AM Laboratory - Chemistry Order TSH BLOOD (SST-SERUM) [facility] [place] [facility] Apr 13, 2025 12:00 AM Laboratory - Chemistry Order URINALYSIS CLEAN CATCH URINE [facility] [place] [facility] Apr 23, 2025 10:29 AM Consult Order ACUPUNCTUR E/NHM OUTPT Cons Wine Specialist's Choice [facility] Lab Results: +/- 30 days of the encounter This section includes the Chemistry and Hematology Lab Results on record with [place] for the patient. Radiology Reports and Pathology Reports are provided separately, in subsequent sections. Lab Results This section contains the Chemistry/Hematology Results that were resulted 30 days before or 30 daysafter the date of the Encounter. Date/Time Source Result Type Result - Unit Interpretation Reference Range Specimen Type Comment Apr 02, 2025 02:25 PM [place] [facility] LYME SEROLOGY PANEL SERUM Specimen Type: SERUM [...] of the panel were validated at the [facility] Molecular Diagnostics Laboratory. Results are considered positive [...] Apr 02, 2025 02:19 PM Reporting Lab: [address] [address] Performing Lab: [address] [address] TIER 1 LYME SCREENING EIA Negative Negat shannen LYME AB FINAL INTERPRETATION Negative Ne gative Apr 02, 2025 02:25 PM [facility] URIC ACID SERUM Specimen Type: SERUM No comment entered. Ordering Provider: AARON WALDEN Report Released Date/Time: Apr 02, 2025 02:19 PM Reporting Lab: [address] [address] Performing Lab: [facility] [address] [facility] [address] URIC ACID 3.8 mg/dL 3.7-7.7 Apr 02, 2025 02:25 PM [facility] BASIC METABOLIC PANEL (non-fasting) SERUM Spe cimen Type: SERUM No comment entered. Ordering Provider: AARON WALDEN Report Released Date/Time: Apr 02, 2025 02:22 PM Reporting Lab: [facility] [address] [facility] [address] Performing Lab: [address] [address] UREA NITROGEN 20 mg/dL 8-26 GLUCOSE 103 mg/dL H 65-100 SODIUM 140 mmol/L 136-145 POTASSIUM 4.9 mmol/L 3.5-5.1 CHLORIDE 108 mmol/L H 98-107 CO2 27 meq/L 23-31 CALCIUM 9.0 mg/dL 8.8-10 CREATININE, Serum 1.47 mg/dL H 0.72-1.25 eGFR(CKD-EPI 2020) 49 mL/min L >60 ANION GAP <6 meq/L L 6-16 Apr 02, 2025 02:25 PM [facility] CBC AND DIFF (AUTO) BLOOD Specimen Type: BLOO D No comment entered. Ordering Provider: AARON WALDEN Report Released Date/Time: Apr 02, 2025 02:19 PM Reporting Lab: [address] [address] Performing Lab: [address] [address] WBC 8.28 10*3/uL 4.50-11.00 RBC 3.95 10*6/uL [...] 0.0 0.0-0.0 NRBC, ABS 0.00 10*3/uL 0.00-0.00 Vital Signs: All taken on the encounter date This section contains inpatient and outpatient Vital Signs collected on the date of the Encounter. Date/Time Temperature Pulse Blood Pressure Respiratory Rate SP02 Pain Height Weight Body Mass Index Source Mar 19, 2025 08:41 AM 98.2 F 82 /min 122/68 mm[Hg] 16 /min 94 % 0 213 lb 30 [facility] Immunizations: All administered on the encounter date This section contains immunizations associated to the Encounter. Immunization Series Date Issued Administered By Site Reaction Lot Number CVX Code Drug Dragger Out Comment(s) Source COVID-19 (MODERNA), MRNA, LNP-S, PF, 50 MCG/0.5 ML (AGES 12+ YEARS) 1 Mar 19, 2025 SHILPI ADAME LEFT DELTO ID [id number] [email or web address] ADMINISTERE [facility] TDAP Mar 19, 2025 SHILPI ADAME LEFT DELTO ID [id number] [employer] Booster for Series, ADMINISTERE [facility] Social History: Smoking Status (Most current) and Tobacco Use (All prior to encounter date) This section includes the most current, and the historical, smoking and tobacco- related health factors from the [place] facility where the Encounter took place. Current Smoking Status This section includes the most current smoking, or tobacco-related health factor, from the [place] facility where the Encounter took place. Date/Time Current Smoking Status Comment [facility] Apr 23, 2024 10:00 AM VA-TOBACCO FORMER USER [place] [facility] [place] [facility] Tobacco Use History This section includes a history of the smoking, or tobacco-related health factors, that were collected on or before the date of the Encounter. The data comes from the [place] facility where the Encounter took place. Date/Time Smoking Status/Tobac co Use Comment Facility Apr 23, 2024 10:00 AM VA-TOBACCO QUIT 5 TO < 15 YRS [facility] [place] [facility] Apr 13, 2023 11:00 AM VA-TOBACCO FORMER USER [facility] [place] [facility] Apr 13, 2023 11:00 AM VA-TOBACCO QUIT 5 TO < 15 YRS [facility] [place] [facility] Apr 14, 2022 01:30 PM VA-TOBACCO FORMER USER [facility] [place] [facility] Apr 14, 2022 01:30 PM VA-TOBACCO QUIT 5 TO < 15 YRS [facility] [place] [facility] Apr 10, 2021 10:00 AM VA-TOBACCO FORMER USER [facility] [place] [facility] Apr 10, 2021 10:00 AM VA-TOBACCO QUIT 5 TO < 15 YRS [facility] [place] [facility] Apr 02, 2020 10:30 AM VA-TOBACCO FORMER USER [facility] [place] [facility] Apr 02, 2020 10:30 AM VA-TOBACCO QUIT 5 TO < 15 YRS [facility] [place] [facility] Sep 29, 2018 08:52 AM VA-TOBACCO FORMER USER [facility] [place] [facility] Sep 29, 2018 08:52 AM VA-TOBACCO QUIT 15 YRS OR MORE [facility] [place] [facility] December 21, 2017 12:27 PM QUIT TOBACCO USE 1-7 YEARS AGO 5 or 6 years ago [facility] [place] [facility] May 19, 2017 10:21 AM QUIT TOBACCO USE 1-7 [facility] AGO [facility] Aug 19, 2016 09:56 AM QUIT TOBACCO USE 1-7 YEARS AGO [facility] Feb 12, 2016 11:34 AM QUIT TOBACCO USE 1-7 YEARS AGO [facility] Aug 08, 2015 03:04 PM QUIT TOBACCO USE 1-7 YEARS AGO [facility] Aug 08, 2015 03:04 PM QUIT TOBACCO USE IN PAST YEAR pt states he stooped smmoking in the past yr. [facility] Advance Directives: All historical and current Section Date Range: From patient's date of to the date document was created. This section includes ALL of a patient's completed or amended [place] Advance and Rescinded Directives. The entries below indicate that a directive exists for the patient, but an actual copy is not included with this document. The data comes from all [place] facilities. Date Advance Directives Provider Source Jun 20, 2012 ADVANCE DIRECTIVE DISCUSSION MONIKA IZAGUIRRE [facility] Radiology Reports: +/- 30 days of [...] the Encounter. The data comes from all [place] treatment facilities. Date/Time Radiology Report Provider Source Apr 15, 2025 10:11 AM ULTRASOUND EXTREMI TY, NONVASCULAR (COMPLETE): SANCHO DYE [id number] -[id number] M Exm Date: APR 15, 2025@10:11 Req Phys: AARON WALDEN Loc: [facility] PACT 2 (Req'g Loc) Img Loc: ULTRASOUND Service: Unknown [facility] KAYLA, NIGEL [address] (Case [id number] COMPLETE) ULTRASOUND EXTREMITY, NONVASCULAR(US Detailed) CPT:66638 Proc Modifiers : RIGHT Reason for Study: look for popliteal cyst Clinical History: Report Status: Verified Date Reported: APR 15, 2025 Date Verified: APR 15, 2025 Business Supervisor E-Sig:/ES/MIRTA NAVAS JR Report: Study: Soft tissue mass ultrasound evaluation of the right popliteal fossa. COMPARISON:None. Technique: Grayscale and color-flow sonography were used to evaluate a palpable mass/area of pain in the left popliteal fossa. FINDINGS: No focal mass, drainable fluid collection or soft tissue abnormality is identified in the right popliteal fossa. Impression: No focal abnormality identified, as described above. Primary Diagnostic Code: No immediate attention required Primary Interpreting Staff: MIRTA NAVAS JR, Radiologist (Business Supervisor) /MIRTA CASIANO JR [facility] Apr 02, 2025 02:27 PM KNEE 3 VIEWS (RIGH T): SANCHO DYE [id number] -1945 M Exm Date: APR 02, 2025@14:27 Req Phys: AARON WALDEN Loc: [facility] PACT 2 MD (Req'g Loc) Img Loc: [facility] 1 Service: [place] [address] (Case [id number] COMPLETE) KNEE 3 VIEWS (RIGHT) (RAD Detailed) CPT:31228 Proc Modifiers : RIGHT Reason for Study: pain, look for injury Clinical History: Report Status: Verified Date Reported: APR 03, 2025 Date Verified: APR 03, 2025 Business Supervisor E-Sig:/ES/MIRTA NAVAS JR Report: Study: AP weight-bearing [...] Interpreting Staff: MIRTA NAVAS JR, Radiologist (Business Supervisor) /MIRTA CASAINO JR [facility] Encounter Notes: All associated encounter notes This section contains the clinical notes associated to the Encounter. Date/Time Encounter Note(s) Provider Source Mar 19, 2025 09:25 AM PHYSICIAN NOTE: LOCAL TITLE: MD NOTE STANDARD TITLE: PHYSICIAN NOTE DATE OF NOTE: MAR 19, 2025@09:25 ENTRY DATE: MAR 19, 2025@09:25:06 AUTHOR: AARON WALDEN EXP COSIGNER: URGENCY: STATUS: COMPLETED Patient Name: SANCHO DYE VITALS: Patient temperature: 98.2 F [36.8 C] (03/19/2025 08:41) Blood pressure: 122/68 (03/19/2025 08:41) Patient height: 70.5 in [179.1 cm] (11/21/2024 11:18) Patient weight: 213 lb [96.62 kg] (03/19/2025 08:41) Patient BMI: BMI: 30.2 Patient pulse: 82 (03/19/2025 08:41) Patient respiration: 16 (03/19/2025 08:41) Patient Pulse Oximetry: 94% (03/19/2025 08:41) Pain Ratin (03/19/2025 08:41) Active [facility] Medications: Active Outpatient Medications (including [...] No Active 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 Occasional episodes of trouble swallowing liquids or solids. No anorexia, weight loss, hemoptysis, hematemesis, chest pain or trouble breathing. History of tobacco use Physical examination Well-developed well-nourished male in no acute distress Coronary no murmur Lungs clear Pharynx no erythema or masses Mucous membranes moist Assessment and plan: 1. Laryngitis: Needs direct laryngoscopy to look for cancer of the larynx. Plan: Has ENT appointment 03-26-25 He will need EGD with biopsy if ENT evaluation negative. Already set for primary care follow-up 04-23-25 Medication Reconciliation: Outpatient: Has the patient been taking medications as documented in the EMLR? YES: The patient has been taking medications as documented in the EMLR. Essential Medication List for Review used to complete this medication reconciliation. INCLUDED IN THIS LIST: Alphabetical list of active outpatient prescriptions dispensed from this [place] (local) and dispensed from another [place] or DoD facility (remote) as well as [...] whether with a VA or non-VA provider. /glneis/ Aaron Walden MD Staff Physician Signed: 03/19/2025 09:30 AARON WALDEN [facility] [place] [facility] Mar 19, 2025 08:43 AM PREVENTIVE MEDICINE NURSING NOTE: LOCAL TITLE: CLINICAL REMINDERS/NURSING STANDARD TITLE: PREVENTIVE MEDICINE NURSING NOTE DATE OF NOTE: MAR 19, 2025@08:43 ENTRY DATE: MAR 19, 2025@08:43:48 AUTHOR: DARRELL ADAME COSIGNER: URGENCY: STATUS: COMPLETED CLINICAL REMINDERS/NURSING Has ADDENDA Falls & Incontinence Screen: Falls Screen: 4. No falls within the past year. Incontinence Screen No incontinence. /es/ DARRELL ADAME HEALTH CARE SPECIALIST DARRELL ADAME HEALTH CARE SPECIALIST Signed: 03/19/2025 08:44 03/19/2025 ADDENDUM STATUS: COMPLETED Td/Tdap Immunization: Administered: TDAP Date Administered: Mar 19, 2025 09:00 Series: Booster Dragger Out: [employer] Lot: [id number] Exp Date: Aug 23, 2025 NDC: [id number] Admin Route/Site: INTRAMUSCULAR/LEFT DELTOID Dosage: 0.5mL Vaccine Information Statement(s): TDAP (TETANUS, DIPHTHERIA, PERTUSSIS) VACCINE VIS Aug 24, 2024 (GHANAIAN) Order By: Policy Administered By: Darrell Adame The TETANUS/DIPHTHERIA/PERTUSS IS (TDAP) Vaccine Information Statement (VIS) was reviewed with the patient/caregiver which lists the benefits and risks of the vaccine and the risks of not receiving the Tdap vaccine. The patient/caregiver denied any prior severe reaction to this vaccine or its components or a severe allergic reaction, such as anaphylaxis, to any vaccine or any injectable therapy. The patient/caregiver gave verbal consent to receive the vaccine. COVID-19 Immunization: Moderna Monovalent (Spikevax) Administered: COVID-19 (MODERNA), MRNA, LNP-S, PF, 50 MCG/0.5 ML (AGES 12 + YEARS) Date Administered: Mar 19, 2025 09:00 Series: Series 1 Dragger Out: MODERNA [employer] Lot: [id number] Exp Date: Apr 04, 2025 NDC: [id number] Admin Route/Site: INTRAMUSCULAR/LEFT DELTOID Dosage: 0.3mL Vaccine Information Statement(s): COVID-19 MRNA VACCINE (12+ YRS) VIS Aug 24, 2024 (GHANAIAN) Order By: Policy Administered By: Darrell Adame The COVID-19 Vaccine Information Statement (VIS) was reviewed with the patient/surrogate decision maker which lists the benefits and risks of not receiving the COVID-19 vaccine. The patient/surrogate decision maker denied any prior severe reaction to this vaccine or its components or a severe allergic reaction such as anaphylaxis to any vaccine or any injectable therapy. The patient/surrogate decision maker gave verbal consent to receive the vaccine. /glenis/ DARRELL ADAME LPN Signed: 03/19/2025 09:34 DARRELL ADAME [place] [facility]
--- OUTSIDE RECORDS SUMMARY | 2025-05-25 09:42 | XMS_ITS | Encounter Summary ---
Author Name [facility] [facility] Address [address] [place] [address] Care Team Providers Care Aeroplane Pilot Name Role Phone LETICIA WALDEN Primary Care [...] PART B Apr 24, 2013 PART B [id number] [phone] KLEBER DYE RY PATIENT MEDICARE (WNR) MEDICARE () PART B Apr 24, 2013 PART B [id number] [facility] KLEBER DYE RY PATIENT MEDICARE (WNR) MEDICARE (M) PART B Apr 24, 2013 PART B [id number] KLEBER DYE RY PATIENT MEDICARE (WNR) MEDICARE () PART A November 23, 2011 PART A [id number] KLEBER DYE RY PATIENT MEDICARE (WNR) MEDICARE () PART A November 23, 2011 PART A [id number] KLEBER DYE RY PATIENT MEDICARE (WNR) MEDICARE () PART A November 23, 2011 PART A [id number] KLEBER DYE PATIENT [employer] PL[employer] G PLAN G Apr 24, 2013 PLAN G [id number] KLEBER DYE PATIENT [employer] PL[employer] G PLANG Apr 24, 2013 PLANG [id number] KLEBER DYE PATIENT [employer] PL[employer] G Apr 24, 2013 PLANG [id number] KLEBER DYE PATIENT Selected Encounter This section includes the information on record at [place] for the Encounter. Date/Time Encounter Type Encounter Description Reason Pro vider Source May 25, 2025 02:42 PM Outpatient Encounter ADMIN PAT ACTIVTIES (MASNONCT) IHE Encounter Template Text not used by [place] Plan of Treatment: Future Appointments (+ 6 months) and Future Tests (+/- 45 days) The Plan of Treatment section includes future care [facility] the [facility] [place] [facility] This section includes future appointments and future orders which are active, pending or scheduled. Future Appointments This section includes appointments that were scheduled to occur 6 months from the date of the Encounter, up to a maximum of 20 appointments. The data comes from all [facility]. Appointment Date/Time Appointment Type Appointme nt Facility Name Jun 14, 2025 10:00 AM AMBULATORY - NONE [facility] Jul 05, 2025 11:00 AM AMBULATORY - MEDICINE [facility] Jul 05, 2025 01:00 PM AMBULATORY - MEDICINE [facility] Jul 16, 2025 10:30 AM AMBULATORY - MEDICINE [facility] Active, Pending, and Scheduled Orders This section includes a listing of several types of active, pending, and scheduled orders, including clinic medications orders, diagnostic test orders, procedure orders and consult orders; where the start date of the order is 45 days before the date of the Encounter or 45 days after the date of theEncounter. The data comes from all [facility]. Test Date/Time Test Type Test Details Facility Name Apr 13, 2025 12:00 AM Laboratory - Chemistry Order LIVER FUNCTION BLOOD (SST-SERUM) [facility] [place] [facility] Apr 13, 2025 12:00 AM Laboratory - Chemistry Order LIPID PANEL FASTING BLOOD (SST-SERUM) SP [facility] [place] [facility] Apr 13, 2025 12:00 AM Laboratory - Chemistry Order TSH BLOOD (SST-SERUM) SP [facility] [place] [facility] Apr 13, 2025 12:00 AM Laboratory - Chemistry Order URINALYSIS CLEAN CATCH URINE [facility] [place] [facility] Apr 23, 2025 10:29 AM Consult Order ACUPUNCTUR E/NHM OUTPT Cons Solution Engineer's Choice [facility] [place] [facility] Jun 14, 2025 12:00 AM Imaging - CT Scan [facility] Social History: Smoking Status (Most [...] Smoking Status Comment [facility] Apr 02, 2025 02:00 PM VA-TOBACCO USE FOR DIPESH CIGARETTES [facility] Tobacco Use History This section includes a history of the smoking, or tobacco-related health factors, that were collected on or before the date of the Encounter. The data comes from the [place] facility where the Encounter took place. Date/Time Smoking Status/Tobac co Use Comment Facility Apr 02, 2025 02:00 PM VA-TOBACCO USE FORMER CIGARETTES [facility] [place] [facility] Apr 23, 2024 10:00 AM [facility]ACCO [facility] Apr 23, 2024 10:00 AM VA-TOBACCO QUIT 5 TO < 15 YRS [facility] Apr 13, 2023 11:00 AM VA-TOBACCO FOR[facility] USER [facility] Apr 13, 2023 11:00 AM VA-TOBACCO QUIT 5 TO < 15 YRS [facility] Apr 14, 2022 01:30 PM VA-TOBACCO FORMER USER [facility] [place] Apr 14, 2022 01:30 PM VA-TOBACCO QUIT 5 TO < 15 YRS [facility] [place] Apr 10, 2021 10:00 AM VA-TOBACCO FORMER USER [facility] [place] Apr 10, 2021 10:00 AM VA-TOBACCO QUIT 5 TO < 15 YRS [facility] [place] [facility] Apr 02, 2020 10:30 AM VA-TOBACCO FORMER USER [facility] [place] [facility] Apr 02, 2020 10:30 AM VA-TOBACCO QUIT 5 TO < 15 YRS [facility] [place] [facility] Sep 29, 2018 08:52 AM VA-TOBACCO FORMER USER [facility] [place] Sep 29, 2018 08:52 AM VA-TOBACCO QUIT 15 YRS OR MORE [facility] [place] [facility] December 21, 2017 12:27 PM QUIT TOBACCO USE 1-7 YEARS AGO 5 or 6 years ago [facility] [place] [facility] May 19, 2017 10:21 AM QUIT TOBACCO USE 1-7 YEARS AGO [facility] [place] [facility] Aug 19, 2016 09:56 AM QUIT TOBACCO USE 1-7 YEARS AGO [facility] [place] [facility] Feb 12, 2016 11:34 AM QUIT TOBACCO USE 1-7 YEARS AGO [facility] [place] [facility] Aug 08, 2015 03:04 PM QUIT TOBACCO USE 1-7 YEARS AGO [facility] [place] [facility] Aug 08, 2015 03:04 PM QUIT TOBACCO USE IN PAST YEAR pt states he stooped smmoking in the past yr. [facility] [place] [facility] Advance Directives: All historical and [...] ADVANCE DIRECTIVE DISCUSSION MONIK[place]UIRRE [facility] [place] Notes: All associated encounter notes This section contains the clinical notes associated to the Encounter. Date/Time Encounter Note(s) Provider Source May 25, 2025 02:43 PM ADMINISTRATIVE NOTE: LOCAL TITLE: CCC: SCHEDULING ADMINISTRATION STANDARD TITLE: ADMINISTRATIVE NOTE DATE OF NOTE: MAY 25, 2025@14:43:04 ENTRY DATE: MAY 25, 2025@14:43:04 AUTHOR: [place] COSIGNER: URGENCY: STATUS: COMPLETED Caller Verification Call Back Number: [phone] Caller/Recipient Relation to Patient: Self Caller Name: SANCHO DYE Administrative Administrative Note Reason: Other Administrative Note Comments: [place] called to alert PACT he went to ER on Tuesday05/24/25 injury to finger could not stop the bledding got stiched up, went home and now back to ER today 05/25/25 as bleeding from finger has continued. Please f/u w/ [phone]. IMPORTANT: This note was created by [facility] Clinical Contact Center staff. Please do not alert the staff member by adding them as a signer for future communications. Alerts are not monitored by this user. /glenis/ [place] [facility] Signed: 05/25/2025 14:43 Receipt Acknowledged By: * AWAITING SIGNATURE * KISHAN CORREA * AWAITING SIGNATURE * OSMANY PALOMINO ROSY MEL [place] CNT[facility]
[2025-05-27 08:36] VITALS: BP 136/59; PULSE 103; RESP 20; TEMP 36.6; O2SAT 96; BMI 28.6
--- NOTE | 2025-05-27 08:43 | ED_ITS ---
HPI - General Adult General Chief complaint: General Medical Stated complaint: wound needs to be rewrapped per ed dr Time Seen by Provider: 05/27/25 08:42 Source: patient, RN notes reviewed and old records reviewed Mode of arrival: ambulatory Limitations: no limitations History of Present Illness ED Provider: Nicci LARSON narrative: Patient is a 79-year-old male on presenting to the emergency department for wound check of laceration to left 5th finger sustained on Tuesday. Patient had sutures placed on Tuesday but returned Tuesday when the bleeding was continuing. Surgicel was applied to the wound at visit on Tuesday and patient was told to return to the emergency department on Tuesday for a wound recheck and re-bandaging. Patient also reports he has had a sore throat and mild cough for a few days as well as a few episodes of diarrhea. Denies fevers. Concerned he may have contracted something while in the ED multiple times. MD complaint: Wound check, sore throat Related Data Home Medications ?Medication ?Instructions ?Recorded ?Confirmed allopurinol 300 mg tablet 300 mg PO DAILY 11/20/24 apixaban 5 mg tablet (Eliquis) 5 mg PO BID 11/20/24 cilostazol 50 mg tablet 50 mg PO BID 11/20/24 clopidogrel 75 mg tablet 75 mg PO DAILY 11/20/24 metoprolol succinate 50 mg 50 mg PO DAILY 11/20/24 tablet,extended release 24 hr dxhiomiw-zdj-[id number] 200 mcg-vit K 100 cap PO 11/20/24 mcg-lycop 500 ymz-[id number]-C56 capsule (Daily Multivitamin) tamsulosin 0.4 mg capsule 0.4 mg PO DAILY 11/20/24 Allergies Allergy/AdvReac Type Severity Reaction Status Date / Time No Known Allergies (No Known Allergy Verified 05/27/25 08:37 Allergies*) Review of Systems Review of Systems: As per HPI Yes all other systems are reviewed and are negative Constitutional: Constitutional: Reports as per HPI [facility] Social History Social History Advance Directives: No Advance Directives Information Provided: Yes Physical Exam ED Vital Signs: Vital Signs - 24 hr 05/27/25 08:36 Temperature 97.9 F Pulse Rate 103 H Respiratory Rate 20 Blood Pressure 136/59 L Pulse Oximetry 96 BMI result Body Mass Index 28.6 Vital signs have been reviewed and appear to be correct. Blood pressure normal. Heart rate normal. Respiratory rate normal. Temperature normal. Oxygen saturation normal. Const General: cooperative, healthy appearing and no acute distress Orientation/consciousness: oriented to person, oriented to place, oriented to time and patient oriented x3 Limitations: no limitations HENOK Head: Yes normocephalic and Yes atraumatic Ears: external ears normal General nose exam: Normal external nose present Face and sinus: Yes face symmetric Mouth: oropharynx normal and moist mucous membranes Throat: Yes uvula midline Eyes Pupils: Equal, round and reactive pupils present Neck Neck: Yes normal visual inspection, Yes no lymphadenopathy and Yes supple Resp Effort & Inspection: normal respiratory effort and able to speak in complete sentences Auscultation: clear to auscultation bilaterally Cardio Rate: regular rate Rhythm: regular rhythm Heart sounds: S1 normal heart sound present and S2 normal heart sound present GI Palpation (GI): Soft to palpation and nontender Auscultation: normoactive bowel sounds General: Yes no CVA tenderness Back/Spine/Pelvis Back: no CVA tenderness Skin General skin exam: elasticity normal and turgor normal Neuro General: oriented to person, oriented to place, oriented to time, patient oriented x3, moves all extremities, no focal motor deficits and CN's II-XI intact bilaterally Cranial nerves: Yes Equal, round and reactive pupils present Cognition (Neuro): normal cognition Extrem General: Yes full ROM, Yes no pedal edema and Yes no calf tenderness Left upper extremity: hand Details: other (sutures in place to palmar surface of left 5th finger with ecchymosis, no active bleeding) Psych Mental Status: mental status grossly normal Affect: normal affect Thought process: Normal thought process present Medications Administered Discontinued Medications Generic Name Dose Route Start Last Admin Trade Name Freq PRN Reason Stop Dose Admin Acetaminophen 975 mg 05/27/25 09:38 05/27/25 10:08 Acetaminophen 325 Mg Tablet PO 05/27/25 09:39 975 mg ONCE ONE Administration Medical Decision Making Medical Decision Making [facility] Narrative: Patient is a 79-year-old male on Eliqu presenting to the emergency department for wound check of laceration to left 5th finger sustained on Tuesday. On exam patient is awake, A+Ox3, VS WNL, afebrile, normal neurological exam without focal deficits, physical exam findings as above. Given reported symptoms and physical exam findings, initial differential includes but is not limited to wound check, viral illness, covid, flu, strep pharyngitis. Previous dressing removed, sutures intact, no active bleeding, ecchymosis noted. Wound redressed with xeroform gauze, then non-stick gauze and kerlix. Patient observed in the ED while viral and strep swabs pending and bleeding remained controlled. Strep and viral serology negative. Will discharge patient with instructions to follow up with PCP for further wound checks, advised he can also return here if he develops new redness, swelling, purulent drainage or any other concerning symptoms. Patient verbalized understanding of and agreement with plan. Differential Diagnosis Differential Diagnoses: The differential diagnosis associated with the presentation includes As per [facility] Admission/Observation Consideration of admission/observation: Escalation of care including admission/observation considered Patient would have been admitted to the hospital and transferred to appropriate facility had their clinical presentation warranted hospital admission. Lab Data [facility] Lab Attestation statement: I reviewed the patient's lab results. as per [facility] Labs: Lab Results 05/27/25 05/27/25 Range/Units 09:35 09:36 COVID-19 (MINDY) Negative (Negative) COVID-19 Clin Com See Note Influenza Type A (ANGELIA) Negative (Negative) Influenza Type B (ANGELIA) Negative (Negative) Influenza A & B Note See Note S. pyogenes GrpA ANGELIA Negative (Negative) External Record Review External record reviewed: Inpatient record, Office record and Outpatient record Discharge Plan Discharge Clinical Impression: Encounter for wound re-check, Acute viral pharyngitis Patient Disposition: Home, Self-Care Instructions: Pharyngitis (ED) Additional Instructions: You were evaluated in the emergency department today for a wound check of your left 5th finger. Your dressing was changed today and the Surgicel was removed. A new dressing was applied with Xeroform and gauze. We recommend that you keep this dressing in place, clean, and dry for the next 24-48 hours. Follow up with your primary care provider for assistance with dressing changes or ongoing wound care. Return to the emergency department if you develop uncontrolled bleeding, new redness or swelling, thick yellow drainage, fever, redness streaking up your arm or any other new or concerning symptoms. You were tested for flu, COVID, and strep in the emergency department today and all of these were negative. Your symptoms are likely due to another viral illness. You can take 650 mg of Tylenol every 6 hours as needed for discomfort. You can also gargle with warm salt water several times daily. Prescriptions: No Action tamsulosin 0.4 mg capsule 0.4 mg PO DAILY allopurinol 300 mg tablet 300 mg PO DAILY Eliquis 5 mg tablet 5 mg PO BID cilostazol 50 mg tablet 50 mg PO BID clopidogrel 75 mg tablet 75 mg PO DAILY metoprolol succinate 50 mg tablet extended release 24 hr 50 mg PO DAILY Daily Multivitamin 200-100-500 mcg capsule PO Print Language: Telugu
--- NOTE | 2025-05-27 09:00 | PC.NURSE ---
OSEAS Grajeda at bedside. Ambulated steadily from ED waiting room to ED 28. Care ongoing by this RN.
[2025-05-27 09:56] LABS: COVID-19 Test Negative (Negative); IDNOW Serial# 58CA691E
[2025-05-27 09:57] LABS: IDNOW Serial# 08D9AD1C; Strep A Nucleic Acid Negative (Negative)
[2025-05-27 09:58] LABS: IDNOW Serial# 55D5AD1C; Influenza B2 Negative (Negative)
--- OUTSIDE RECORDS SUMMARY | 2025-05-27 10:00 | XMS_ITS | Clinical Summary ---
Author Organization [facility] Address [address] [place] [address] Phone Care Team Providers Care Supervisor Hairspring Fabrication Name Role Phone Aaron Solis MD Primary [...] Payer (Ef fective 2013-Present) Name:Zi Caruso Member ID:[id number] Relation to Subscriber:Self Name:Zi Caruso Subscriber ID:[id number] Payer ID:[id number] Group ID:Not on file Type:Medicare Address: [employer] [address] GENERIC COMMERCIAL MEDICARE PART A & B GENERIC COMMERCIAL MEDICARE PART A & B GENERIC COMMERCIAL MEDICARE PART A & B GENERIC COMMERCIAL MEDICARE PART A & B GENERIC COMMERCIAL MEDICARE PART A & B GENERIC COMMERCIAL MEDICARE PART A & B GENERIC COMMERCIAL MEDICARE PART A & B GENERIC COMMERCIAL MEDICARE PART A & B GENERIC COMMERCIAL Care Teams Supervisor Hairspring Fabrication Relationship Specialty Start Date End Date Aaron Solis MD PCP - General 07/28/17 Additional Source Comments The information contained in this document represents components of the legal health record. It is not the complete legal health record.[facility]
--- OUTSIDE RECORDS SUMMARY | 2025-05-27 10:00 | XMS_ITS | Encounter Summary ---
Author Organization [facility] Address [address] [facility] [address] [place] [address] Phone Care Team Providers Care Coconut Cooker Name Role Phone Aaron Solis MD Unavailable [phone] Nestor Vang MD Unavailable [phone] Stephan Zhou MD Unavailable Aaron Solis MD Primary Care Provider + Encounter Details Date Type Department Care Team (Latest Contact Info) Description 03/22/2018 Ancillary [facility] [address] [place] [address] [place] [address] German Alvarez MD [address] [place] [id number] [email or web address] Chest pain, unspecified type Social [...] type documented in this encounter Care Teams Coconut Cooker Relationship Specialty Start Date End Date Aaron Solis MD [address] [place] [address] PCP - General 07/28/17 Aaron Solis MD [address] [place] [address] Historical LMR Provider 05/14/17 2 Nestor Vang MD [address] [place] [address] [email or web address] Historical LMR Provider 05/14/17 08/01/21 Stephan Zhou MD [address] [place] [address] Historical LMR Provider 05/14/17 2 documented as of this encounter Additional Source Comments The information contained in this document represents components of the legal health record. It is not the complete legal health record.[facility]
--- OUTSIDE RECORDS SUMMARY | 2025-05-27 10:00 | XMS_ITS | Encounter Summary ---
Author Organization [facility] Address [address] [place] [id number] Phone Care Team Providers Care Optician Apprentice Name Role Phone Aaron Solis MD Unavailable [phone] Nestor Vang MD Unavailable [phone] Stephan Zhou MD Unavailable [phone] Aaron Solis MD Primary Care Provider + Encounter Details Date Type Department Care Team (Latest Contact Info) Description 03/22/2018 Ancillary Orders [facility] [address] [place] [address] German Alvarez MD [address] [place] [id number] [email or web address] Chest pain, unspecified type Social [...] type documented in this encounter Care Teams Optician Apprentice Relationship Specialty Start Date End Date Aaron Solis MD [address] [address] PCP - General 07/28/17 Aaron Solis MD [address] [place] [address] Historical LMR Provider 05/14/17 2 Nestor Vang MD [address] [place] [address] [email or web address] Historical LMR Provider 05/14/17 08/01/21 Stephan Zhou MD [address] [address] Historical LMR Provider 05/14/17 2 documented as of this encounter Additional Source Comments The information contained in this document represents components of the legal health record. It is not the complete legal health record.[facility]
--- OUTSIDE RECORDS SUMMARY | 2025-05-27 10:00 | XMS_ITS | Encounter Summary ---
Author Organization [facility] Address [address] [place] [address] Phone Care Team Providers Care Supervisor Final Name Role Phone Aaron Solis MD Unavailable [phone] Nestor Vang MD Unavailable [phone] Stephan Zhou MD Unavailable [phone] Aaron Soils MD Primary Care Provider + Encounter Details Date Type Department Care Team (Late st Contact Info) Description 03/22/2018 Ancillary Orders [facility] [address], [address] [place] [address] German Alvarez MD [address] [place] [id number] Social History Tobacco Use Types Packs/Day Years [...] on filedocumented in this encounter Care Teams Supervisor Final Relationship Specialty Start Date End Date Aaron Solis MD [address] [place] [address] PCP - General 07/28/17 Aaron Solis MD [address] [place] [address] Historical LMR Provider 05/14/17 2 Nestor Vang MD [address] [place] [address] [email or web address] Historical LMR Provider 05/14/17 08/01/21 Stephan Zhou MD [address] [address] Historical LMR Provider 05/14/17 2 documented as of this encounter Additional Source Comments The information contained in this document represents components of the legal health record. It is not the complete legal health record.[facility]
--- OUTSIDE RECORDS SUMMARY | 2025-05-27 10:00 | XMS_ITS | Encounter Summary ---
Author Organization [facility] Address [address] [place] [address] Phone Care Team Providers Care Administrative Project Coordinator Name Role Phone Aaron Solis MD Unavailable Nestor Vang MD Unavailable [phone] Stephan Zhou MD Unavailable [phone] Aaron Solis MD Primary Care Provider + Encounter Details Date Type Department Care Team (Late st Contact Info) Description 03/22/2018 Ancillary Orders [facility] [address], [address] [place] [address] German Alvarez MD [address] [place] [id number] Social History Tobacco Use Types Packs/Day Years [...] on filedocumented in this encounter Care Teams Administrative Project Coordinator Relationship Specialty Start Date End Date Aaron Solis MD [address] [place] [address] PCP - General 07/28/17 Aaron Solis MD [address] [place] [address] Historical LMR Provider 05/14/17 2 Nestor Vang MD [address] [place] [address] [email or web address] Historical LMR Provider 05/14/17 08/01/21 Stephan Zhou MD [address] [address] Historical LMR Provider 05/14/17 2 documented as of this encounter Additional Source Comments The information contained in this document represents components of the legal health record. It is not the complete legal health record.[facility]
[2025-05-27 11:34] VITALS: BP 142/62; PULSE 87; RESP 16; TEMP 36.6; O2SAT 97
== END 2025-05-27 11:34 | disposition home or self-care (01) ==
PROVIDERS: Registered Nurse Emergency; Emergency Provider Emergency Medicine; PCP Internal Medicine
DX: J02.8 Acute pharyngitis due to other specified organisms (principal); Z48.00 Encounter for change or removal of nonsurgical wound dressing; Z79.899 Other long term (current) drug therapy
CPT/HCPCS: 87502; 87635; 87651; 99283